=== PATIENT | female | born 1960 | race Caucasian/White ===

== ENCOUNTER → 2017-12-08 09:15 | Outpatient (CLI) | payer BC, SELFPAY ==
--- NOTE | 2017-12-08 09:21 | RAD_ITS ---
STUDY: X-RAY - THORACIC SPINE REASON FOR EXAM: Female, 56 years old. Chronic back pain. TECHNIQUE: 3 view(s) of the thoracic spine were obtained. COMPARISON: None. FINDINGS: Normal kyphosis of the thoracic spine. There is no substantial scoliosis. Normal thoracic vertebrae and endplates. Normal disc space heights. The soft tissue structures are unremarkable. RAD/Thoracic Spine 3 Views IMPRESSION: Normal for age. Electronically Signed: Jaya Perdomo MD at 17:04 EDT , Service support ,
== END ==
PROVIDERS: Family Provider Family Medicine; PCP Family Medicine; Visit Provider Family Medicine
DX: M54.9 Dorsalgia, unspecified (principal)
CPT/HCPCS: 72072

== ENCOUNTER → 2022-03-23 | Outpatient (CLI) | payer OTHER, SELFPAY ==
[2022-03-23 14:39] LABS: Absolute Lymphocyte Count 2.32 X10^3/uL (0.83-4.51); Absolute Neutrophil Count 4.6 X10^3/uL (2.0-7.7); Basophil# 0.05 X10^3/uL; Basophil% 0.6 % (0-1); Eosinophil# 0.24 X10^3/uL; Eosinophils% 3.1 % (0-5); Hematocrit 43.3 % (37-47); Hemoglobin 13.9 g/dL (12.0-15.0); Lymphocyte # 2.32 X10^3/ul (0.83-4.51); Lymphocyte % 29.7 % (19-41); Mean Corp Hgb Conc 32.1 g/dL (32-36); Mean Corpuscular Hgb 29.3 pg (27.0-32.0); Mean Corpuscular Volume 91.4 fL (81-99); Mean Platelet Vol. 11.6 fl (6.2-12.0); Monocyte# 0.58 X10^3/uL; Monocyte% 7.4 % (0-10); NRBC Flagged by Analyzer 0 % (0-5); Neutrophil % 58.9 % (47-70); Platelet Count 343 K/mm3 (150-450); RBC Distribution Width CV 13.4 % (11.6-14.6); RBC Distribution Width SD 45.7 fl (35.1-43.9); Red Blood Count 4.74 M/mm3 (4.2-5.4); White Blood Count 7.8 K/mm3 (4.4-11.0)
[2022-03-23 15:00] LABS: ALB/GLOB Ratio 1.2 RATIO (0.9-2.4); AST(SGOT) 19 U/L (15-37); Alanine Aminotransfer ALT/SGPT 28 U/L (13-56); Albumin, Serum 3.9 g/dL (3.2-5.0); Alkaline Phosphatase 121 U/L (45-117); Anion Gap 6 (5-15); BUN 12 mg/dL (7-18); BUN/Creat Ratio 16.3 RATIO (10-20); Calcium,Total 9.2 mg/dL (8.5-10.1); Chloride 109 mmol/L (98-107); Cholesterol 188 mg/dL (200); Creatinine, Serum 0.74 mg/dL (0.55-1.02); EST Glomerular Filtration Rate 86 mL/min (>60); Est Glom Filt Rate - Afr Amer 104 mL/min (>60); Globulin 3.2 g/dL (2.2-4.2); Glucose 89 mg/dL (74-106); High Density Lipoprotein 51 mg/dL; Potassium 4.5 mmol/L (3.5-5.1); Protein, Total 7.1 g/dL (6.4-8.2); Sodium Level 141 mmol/L (136-145); Thyroid Stim Hormone (TSH) 2.84 uIU/mL (0.358-3.74); Triglycerides 89 mg/dL; Very Low Density Lipoprotein 18 mg/dL (5-40); Vitamin D,25 Hydroxy 49.9 ng/mL
[2022-03-25 14:34] LABS: Free T3 2.4 pg/mL (2.18-3.98); T4 Free Direct 1.03 ng/dL (0.76-1.46)
== END | disposition home or self-care (01) ==
LOC: BFHLAB 10:56
PROVIDERS: PCP Family Medicine; Visit Provider Family Medicine
DX: Z00.00 Encounter for general adult medical examination without abnormal findings (principal); L40.50 Arthropathic psoriasis, unspecified; E03.9 Hypothyroidism, unspecified; E55.9 Vitamin D deficiency, unspecified
CPT/HCPCS: 36415; 80053; 80061; 82306; 84439; 84443; 84481; 85025

== ENCOUNTER → 2022-03-30 | Outpatient (CLI) | payer OTHER, SELFPAY ==
--- NOTE | 2022-03-30 07:20 | CT_ITS ---
EXAM: CT CHEST, LUNG CANCER SCREENING WITHOUT INTRAVENOUS CONTRAST CLINICAL INDICATION: LUNG CANCER SCREENING TECHNIQUE: Helically acquired images were obtained of the chest without intravenous contrast using low dose (LDCT) lung cancer screening protocol. This CT exam was performed using one or more of the following dose reduction techniques: automated exposure control, adjustment of the mA and/or kV according to patient size, and/or use of iterative reconstruction technique. This report was created using [employer] report generation technology. COMPARISON: None. FINDINGS: LUNGS AND PLEURAL SPACES: 5 mm left lower lobe pulmonary nodule noted on image 146 of sequence 2. Linear scarring noted within the right middle lobe and lingula. Lungs are otherwise clear. No pleural effusion or thickening. No pneumothorax. HEART: Small pericardial effusion. Heart size is normal. No significant coronary artery calcifications. MEDIASTINUM: Normal. No mediastinal or hilar adenopathy. Esophagus is unremarkable. No hiatal hernia. THYROID: Normal. No thyroid lesions. BONES/JOINTS: Normal. No suspicious lytic or blastic abnormality. VASCULATURE: Normal. Thoracic aorta is non-dilated. LYMPH NODES: Normal. No enlarged lymph nodes. CT/Low Dose CT Lung Screening IMPRESSION: 5 mm left lower lobe pulmonary nodule. ACR Lung CT Screening Reporting T Data System (Lung-RADS) score: 3 - Probably Benign. Recommend low-dose CT (LDCT) in 6 months. Electronically Signed: Beto Sahni MD at 8:39 EST ,
--- NOTE | 2022-03-30 07:45 | BI_ITS ---
MAMMOGRAPHY - BILATERAL SCREENING REASON FOR EXAM: Female, 61 years old. Routine annual screening examination. PERTINENT HISTORY: Non-contributory. TECHNIQUE: Digital bilateral breast rosa elena (3D mammographic acquisition) in the CC and MLO projections. 2-D mediolateral oblique (MLO) and craniocaudad (CC) views of both breasts were obtained. CAD: Full Field Digital Mammography with Computer Added Detection was performed. COMPARISON: 12/01/2010 FINDINGS: Breast Composition: There are scattered areas of fibroglandular density. There are no dominant masses or suspicious calcifications. No other significant abnormalities are identified. There has been no significant change since the prior study. BI/SCRN MAMM (CAD)W/ROSA ELENA BILAT IMPRESSION: Stable bilateral screening mammogram. Yearly follow-up mammogram recommended. (A) ASSESSMENT CATEGORY: BIRADS Category 1: Negative. A letter regarding these results will be sent to the patient by the facility within 30 days. Approximately 10% of breast cancers are not detected by mammography. A normal mammogram should not delay biopsy of a clinically suspicious abnormality. Electronically Signed: Thomas Rockwell, at 16:47 EST ,
== END | disposition home or self-care (01) ==
PROVIDERS: PCP Family Medicine; Referring Provider Family Medicine; Visit Provider Family Medicine
DX: Z12.31 Encounter for screening mammogram for malignant neoplasm of breast (principal); Z12.2 Encounter for screening for malignant neoplasm of respiratory organs; F17.200 Nicotine dependence, unspecified, uncomplicated
CPT/HCPCS: 71271; 77063; 77067

== ENCOUNTER → 2023-04-20 | Outpatient (CLI) | payer OTHER, SELFPAY ==
[2023-04-20 12:19] LABS: Absolute Lymphocyte Count 1.83 X10^3/uL (0.83-4.51); Basophil# 0.07 X10^3/uL; Basophil% 0.9 % (0-1); Eosinophil# 0.23 X10^3/uL; Eosinophils% 2.9 % (0-5); Hematocrit 46.1 % (37-47); Hemoglobin 14.2 g/dL (12.0-15.0); Lymphocyte # 1.83 X10^3/ul (0.83-4.51); Lymphocyte % 23.5 % (19-41); Mean Corp Hgb Conc 30.8 g/dL (32-36); Mean Corpuscular Hgb 28.3 pg (27.0-32.0); Mean Platelet Vol. 11.7 fl (6.2-12.0); Monocyte% 7.7 % (0-10); NRBC Flagged by Analyzer 0 % (0-5); Neutrophil # 5.04 X10^3/uL (2.7-7.7); Neutrophil % 64.6 % (47-70); Platelet Count 331 K/mm3 (150-450); RBC Distribution Width CV 13.1 % (11.6-14.6); RBC Distribution Width SD 44.3 fl (35.1-43.9); Red Blood Count 5.01 M/mm3 (4.2-5.4); White Blood Count 7.8 K/mm3 (4.4-11.0)
[2023-04-20 12:48] LABS: Vitamin D,25 Hydroxy 28.6 ng/mL
[2023-04-20 13:11] LABS: ALB/GLOB Ratio 1.2 RATIO (0.9-2.4); AST(SGOT) 17 U/L (15-37); Alanine Aminotransfer ALT/SGPT 23 U/L (13-56); Alkaline Phosphatase 138 U/L (45-117); Anion Gap 7 (5-15); BUN 16 mg/dL (7-18); BUN/Creat Ratio 19.2 RATIO (10-20); Calcium,Total 9.3 mg/dL (8.5-10.1); Chloride 108 mmol/L (98-107); Cholesterol 196 mg/dL (200); Creatinine, Serum 0.83 mg/dL (0.55-1.02); EST Glomerular Filtration Rate 74 mL/min (>60); Est Glom Filt Rate - Afr Amer 90 mL/min (>60); Globulin 3.4 g/dL (2.2-4.2); Glucose 90 mg/dL (74-106); High Density Lipoprotein 53 mg/dL; Potassium 4.5 mmol/L (3.5-5.1); Protein, Total 7.4 g/dL (6.4-8.2); Sodium Level 141 mmol/L (136-145); T4 Free Direct 1.05 ng/dL (0.76-1.46); Thyroid Stim Hormone (TSH) 3.92 uIU/mL (0.358-3.74); Triglycerides 117 mg/dL; Very Low Density Lipoprotein 23 mg/dL (5-40)
== END | disposition home or self-care (01) ==
LOC: BIMLAB 09:15
PROVIDERS: PCP Family Medicine; Referring Provider Family Medicine; Visit Provider Family Medicine
DX: Z00.00 Encounter for general adult medical examination without abnormal findings (principal); L40.50 Arthropathic psoriasis, unspecified; E55.9 Vitamin D deficiency, unspecified; E03.9 Hypothyroidism, unspecified
CPT/HCPCS: 36415; 80053; 80061; 82306; 84439; 84443; 85025

== ENCOUNTER → 2023-08-05 | Outpatient (CLI) | payer OTHER, SELFPAY ==
--- NOTE | 2023-08-05 14:24 | RAD_ITS ---
INDICATION: PAIN EXAMINATION/TECHNIQUE: X-RAY - XR Pelvis 1 view COMPARISON: FINDINGS: PELVIC BONES: No displaced fracture, destructive or sclerotic lesions. Note that overlapping bowel shadows may however obscure fine detail. Sacroiliac joints are unremarkable. No widening of the pubic symphysis. HIPS: The articular structures are unremarkable. No displaced fracture seen in this frontal view. SOFT TISSUES: No soft tissue swelling or gas. RAD/Pelvis 1 or 2 Views IMPRESSION: No evidence of displaced pelvic or hip fracture. Electronically Signed: Petros Jovel DO at 21:43 EDT Reading Location ID and State: [facility] / [place] Tel [phone], Service support ,
[2023-08-05 17:23] LABS: Absolute Lymphocyte Count 2.38 X10^3/uL (0.83-4.51); Absolute Neutrophil Count 4.5 X10^3/uL (2.0-7.7); Basophil# 0.06 X10^3/uL; Basophil% 0.8 % (0-1); Eosinophil# 0.31 X10^3/uL; Hematocrit 43.6 % (37-47); Hemoglobin 13.9 g/dL (12.0-15.0); Lymphocyte # 2.38 X10^3/ul (0.83-4.51); Lymphocyte % 30.4 % (19-41); Mean Corp Hgb Conc 31.9 g/dL (32-36); Mean Corpuscular Hgb 28.6 pg (27.0-32.0); Mean Corpuscular Volume 89.7 fL (81-99); Monocyte# 0.56 X10^3/uL; Monocyte% 7.2 % (0-10); NRBC Flagged by Analyzer 0 % (0-5); Neutrophil # 4.48 X10^3/uL (2.7-7.7); Neutrophil % 57.2 % (47-70); Platelet Count 307 K/mm3 (150-450); RBC Distribution Width CV 13.2 % (11.6-14.6); RBC Distribution Width SD 43.4 fl (35.1-43.9); Red Blood Count 4.86 M/mm3 (4.2-5.4); White Blood Count 7.8 K/mm3 (4.4-11.0)
[2023-08-05 17:30] LABS: Erythrocyte Sedimentation Rate 14 mm/hr (0-30)
[2023-08-05 18:01] LABS: ALB/GLOB Ratio 1.1 RATIO (0.9-2.4); AST(SGOT) 17 U/L (15-37); Alanine Aminotransfer ALT/SGPT 27 U/L (13-56); Albumin, Serum 3.9 g/dL (3.2-5.0); Alkaline Phosphatase 149 U/L (45-117); Anion Gap 5 (5-15); BUN 21 mg/dL (7-18); BUN/Creat Ratio 20.6 RATIO (10-20); CRP 3.53 mg/L (0.0-3.0); Calcium,Total 9.1 mg/dL (8.5-10.1); Chloride 108 mmol/L (98-107); Creatinine, Serum 1.02 mg/dL (0.55-1.02); EST Glomerular Filtration Rate 59 mL/min (>60); Est Glom Filt Rate - Afr Amer 71 mL/min (>60); Globulin 3.4 g/dL (2.2-4.2); Glucose 89 mg/dL (74-106); Potassium 3.6 mmol/L (3.5-5.1); Protein, Total 7.3 g/dL (6.4-8.2); Rheumatoid Factor < 10.0 IU/mL (<15); Sodium Level 141 mmol/L (136-145)
[2023-08-05 18:35] LABS: Hepatitis B Surface Antibody Non-Reactive; Hepatitis B Surface Antigen Non-Reactive (Nonreactive); Hepatitis C Antibody Non-Reactive (Nonreactive)
[2023-08-08 12:08] LABS: ANTINUCLEAR ANTIBODIES DIRECT Negative (Negative)
[2023-08-08 15:07] LABS: CCP IgG Antibodies 2 units (0-19)
== END | disposition home or self-care (01) ==
LOC: MTLAB 14:23
PROVIDERS: PCP Family Medicine; Referring Provider Internal Medicine Rheumatology; Visit Provider Internal Medicine Rheumatology
DX: L40.59 Other psoriatic arthropathy (principal); M79.7 Fibromyalgia
CPT/HCPCS: 36415; 72170; 80053; 85025; 85652; 86038; 86140; 86200; 86431; 86706; 86803; 87340

== ENCOUNTER → 2023-10-19 | Outpatient (CLI) | payer OTHER, SELFPAY ==
[2023-10-19 10:38] LABS: Absolute Lymphocyte Count 1.67 X10^3/uL (0.83-4.51); Absolute Neutrophil Count 4.6 X10^3/uL (2.0-7.7); Basophil# 0.06 X10^3/uL; Basophil% 0.8 % (0-1); Eosinophil# 0.19 X10^3/uL; Eosinophils% 2.7 % (0-5); Hematocrit 43.4 % (37-47); Hemoglobin 13.9 g/dL (12.0-15.0); Lymphocyte # 1.67 X10^3/ul (0.83-4.51); Lymphocyte % 23.5 % (19-41); Mean Corpuscular Hgb 28.5 pg (27.0-32.0); Mean Corpuscular Volume 88.9 fL (81-99); Mean Platelet Vol. 10.8 fl (6.2-12.0); Monocyte# 0.51 X10^3/uL; Monocyte% 7.2 % (0-10); NRBC Flagged by Analyzer 0 % (0-5); Neutrophil # 4.64 X10^3/uL (2.7-7.7); Neutrophil % 65.4 % (47-70); Platelet Count 369 K/mm3 (150-450); RBC Distribution Width CV 13.8 % (11.6-14.6); RBC Distribution Width SD 44.7 fl (35.1-43.9); Red Blood Count 4.88 M/mm3 (4.2-5.4); White Blood Count 7.1 K/mm3 (4.4-11.0)
[2023-10-19 11:41] LABS: ALB/GLOB Ratio 1.2 RATIO (0.9-2.4); AST(SGOT) 18 U/L (15-37); Alanine Aminotransfer ALT/SGPT 28 U/L (13-56); Albumin, Serum 3.9 g/dL (3.2-5.0); Alkaline Phosphatase 166 U/L (45-117); Anion Gap 8 (5-15); BUN 16 mg/dL (7-18); BUN/Creat Ratio 19.1 RATIO (10-20); Calcium,Total 9.7 mg/dL (8.5-10.1); Chloride 108 mmol/L (98-107); Creatinine, Serum 0.84 mg/dL (0.55-1.02); EST Glomerular Filtration Rate 73 mL/min (>60); Est Glom Filt Rate - Afr Amer 89 mL/min (>60); Globulin 3.3 g/dL (2.2-4.2); Glucose 110 mg/dL (74-106); Potassium 3.7 mmol/L (3.5-5.1); Protein, Total 7.2 g/dL (6.4-8.2); Sodium Level 137 mmol/L (136-145)
== END | disposition home or self-care (01) ==
LOC: MTLAB 09:07
PROVIDERS: PCP Family Medicine; Referring Provider Internal Medicine Rheumatology; Visit Provider Internal Medicine Rheumatology
DX: L40.59 Other psoriatic arthropathy (principal); M79.7 Fibromyalgia; Z79.899 Other long term (current) drug therapy
CPT/HCPCS: 36415; 80053; 85025

== ENCOUNTER → 2023-12-21 | Outpatient (CLI) | payer OTHER, SELFPAY ==
[2023-12-21 12:22] LABS: ALB/GLOB Ratio 1.1 RATIO (0.9-2.4); AST(SGOT) 28 U/L (15-37); Absolute Neutrophil Count 3.5 X10^3/uL (2.0-7.7); Alanine Aminotransfer ALT/SGPT 38 U/L (13-56); Alkaline Phosphatase 160 U/L (45-117); Anion Gap 8 (5-15); BUN 14 mg/dL (7-18); BUN/Creat Ratio 16.9 RATIO (10-20); Basophil# 0.03 X10^3/uL; Basophil% 0.5 % (0-1); Calcium,Total 9.8 mg/dL (8.5-10.1); Chloride 103 mmol/L (98-107); Creatinine, Serum 0.83 mg/dL (0.55-1.02); EST Glomerular Filtration Rate 75 mL/min (>60); Eosinophil# 0.17 X10^3/uL; Eosinophils% 2.8 % (0-5); Est Glom Filt Rate - Afr Amer 90 mL/min (>60); Globulin 3.6 g/dL (2.2-4.2); Glucose 89 mg/dL (74-106); Hematocrit 45.7 % (37-47); Hemoglobin 14.2 g/dL (12.0-15.0); Lymphocyte % 29.3 % (19-41); Mean Corp Hgb Conc 31.1 g/dL (32-36); Mean Corpuscular Volume 93.5 fL (81-99); Mean Platelet Vol. 11.4 fl (6.2-12.0); Monocyte# 0.58 X10^3/uL; Monocyte% 9.4 % (0-10); NRBC Flagged by Analyzer 0 % (0-5); Neutrophil # 3.52 X10^3/uL (2.7-7.7); Neutrophil % 57.3 % (47-70); Platelet Count 317 K/mm3 (150-450); Potassium 4.4 mmol/L (3.5-5.1); Protein, Total 7.6 g/dL (6.4-8.2); RBC Distribution Width CV 14.3 % (11.6-14.6); RBC Distribution Width SD 48.2 fl (35.1-43.9); Red Blood Count 4.89 M/mm3 (4.2-5.4); Sodium Level 137 mmol/L (136-145); White Blood Count 6.1 K/mm3 (4.4-11.0)
== END | disposition home or self-care (01) ==
LOC: MTLAB 09:28
PROVIDERS: PCP Family Medicine; Referring Provider Internal Medicine Rheumatology; Visit Provider Internal Medicine Rheumatology
DX: L40.59 Other psoriatic arthropathy (principal); Z79.899 Other long term (current) drug therapy; M79.7 Fibromyalgia
CPT/HCPCS: 36415; 80053; 85025

== ENCOUNTER → 2024-02-14 | Outpatient (CLI) | payer OTHER, SELFPAY ==
[2024-02-14 07:39] LABS: Absolute Lymphocyte Count 1.76 X10^3/uL (0.83-4.51); Absolute Neutrophil Count 3.6 X10^3/uL (2.0-7.7); Basophil# 0.08 X10^3/uL; Basophil% 1.2 % (0-1); Eosinophils% 4.7 % (0-5); Hematocrit 45.1 % (37-47); Hemoglobin 14.1 g/dL (12.0-15.0); Lymphocyte # 1.76 X10^3/ul (0.83-4.51); Lymphocyte % 27.4 % (19-41); Mean Corp Hgb Conc 31.3 g/dL (32-36); Mean Corpuscular Hgb 29.4 pg (27.0-32.0); Mean Corpuscular Volume 94.2 fL (81-99); Mean Platelet Vol. 11.1 fl (6.2-12.0); Monocyte# 0.66 X10^3/uL; Monocyte% 10.3 % (0-10); NRBC Flagged by Analyzer 0 % (0-5); Neutrophil % 55.9 % (47-70); Platelet Count 312 K/mm3 (150-450); RBC Distribution Width CV 13.7 % (11.6-14.6); RBC Distribution Width SD 46.8 fl (35.1-43.9); Red Blood Count 4.79 M/mm3 (4.2-5.4); White Blood Count 6.4 K/mm3 (4.4-11.0)
[2024-02-14 08:35] LABS: ALB/GLOB Ratio 1.1 RATIO (0.9-2.4); AST(SGOT) 23 U/L (15-37); Alanine Aminotransfer ALT/SGPT 36 U/L (13-56); Albumin, Serum 3.8 g/dL (3.2-5.0); Alkaline Phosphatase 165 U/L (45-117); Anion Gap 7 (5-15); BUN 12 mg/dL (7-18); BUN/Creat Ratio 14.5 RATIO (10-20); Calcium,Total 9.8 mg/dL (8.5-10.1); Chloride 106 mmol/L (98-107); Creatinine, Serum 0.82 mg/dL (0.55-1.02); EST Glomerular Filtration Rate 75 mL/min (>60); Est Glom Filt Rate - Afr Amer 91 mL/min (>60); Globulin 3.4 g/dL (2.2-4.2); Glucose 94 mg/dL (74-106); Potassium 4.7 mmol/L (3.5-5.1); Protein, Total 7.2 g/dL (6.4-8.2); Sodium Level 141 mmol/L (136-145)
== END | disposition home or self-care (01) ==
PROVIDERS: PCP Family Medicine; Referring Provider Internal Medicine Rheumatology; Visit Provider Internal Medicine Rheumatology
DX: L40.59 Other psoriatic arthropathy (principal); L40.8 Other psoriasis; Z79.899 Other long term (current) drug therapy
CPT/HCPCS: 36415; 80053; 85025

== ENCOUNTER → 2024-04-03 | Outpatient (CLI) | payer OTHER, SELFPAY ==
[2024-04-03 12:31] LABS: Absolute Lymphocyte Count 1.75 X10^3/uL (0.83-4.51); Absolute Neutrophil Count 4.4 X10^3/uL (2.0-7.7); Basophil# 0.06 X10^3/uL; Basophil% 0.9 % (0-1); Eosinophil# 0.24 X10^3/uL; Eosinophils% 3.4 % (0-5); Hematocrit 44.6 % (37-47); Hemoglobin 13.8 g/dL (12.0-15.0); Lymphocyte # 1.75 X10^3/ul (0.83-4.51); Lymphocyte % 24.9 % (19-41); Mean Corp Hgb Conc 30.9 g/dL (32-36); Mean Corpuscular Hgb 29.2 pg (27.0-32.0); Mean Corpuscular Volume 94.3 fL (81-99); Mean Platelet Vol. 11.8 fl (6.2-12.0); Monocyte# 0.61 X10^3/uL; Monocyte% 8.7 % (0-10); NRBC Flagged by Analyzer 0 % (0-5); Neutrophil # 4.36 X10^3/uL (2.7-7.7); Neutrophil % 61.8 % (47-70); Platelet Count 343 K/mm3 (150-450); RBC Distribution Width CV 13.3 % (11.6-14.6); RBC Distribution Width SD 45.8 fl (35.1-43.9); Red Blood Count 4.73 M/mm3 (4.2-5.4)
[2024-04-03 12:42] LABS: ALB/GLOB Ratio 1.2 RATIO (0.9-2.4); AST(SGOT) 23 U/L (15-37); Alanine Aminotransfer ALT/SGPT 36 U/L (13-56); Albumin, Serum 3.9 g/dL (3.2-5.0); Alkaline Phosphatase 154 U/L (45-117); Anion Gap 7 (5-15); BUN 17 mg/dL (7-18); BUN/Creat Ratio 21.7 RATIO (10-20); Calcium,Total 9.7 mg/dL (8.5-10.1); Chloride 105 mmol/L (98-107); Creatinine, Serum 0.78 mg/dL (0.55-1.02); EST Glomerular Filtration Rate 79 mL/min (>60); Est Glom Filt Rate - Afr Amer 96 mL/min (>60); Globulin 3.2 g/dL (2.2-4.2); Glucose 79 mg/dL (74-106); Protein, Total 7.1 g/dL (6.4-8.2); Sodium Level 139 mmol/L (136-145)
== END | disposition home or self-care (01) ==
LOC: MTLAB 09:15
PROVIDERS: PCP Family Medicine; Referring Provider Internal Medicine Rheumatology; Visit Provider Internal Medicine Rheumatology
DX: L40.59 Other psoriatic arthropathy (principal); L40.8 Other psoriasis; Z79.899 Other long term (current) drug therapy
CPT/HCPCS: 36415; 80053; 85025

== ENCOUNTER 2024-04-10 08:00 | Outpatient (RCR) | payer OTHER, SELFPAY ==
--- NOTE | 2024-03-06 11:00 | HP.PTEVAL_ITS ---
Patient's Visit Information Visit Information Visit Information: BOO BREEN is a 63 year old F referred to Physical Therapy by Dr. Maria A Carranza MD with a diagnosis of PSORIATIC ARTHROPATHY , FIBROMYALGIA. Date of Evaluation: 03/06/24 Physical Therapist: Andrea Garcia PT, Cert MDT, OCS Visit Plan Frequency: 2x /Week Duration: 4 Weeks Plan: PT INTERVENTIONS GRADED STRENGTHENING QUADS/HAMS/HIP ,FUNCTIONAL STRENGTHENING ,DLS ,POSTURAL EX'S AND UE STRENGTHENING Subjective Subjective: This 63 y/o female presents to physical therapy with generalized pain. Patient has fibromyalgia and psoriatic arthritis for many years. Patient seen DR flynn PT. Patient has medication prednisone as needed ,methotrexate 1x /week ,tramadol. Patient pain located bilateral lateral hips ,shoulders and left knee and constant back pain. Pain generalized described as ache and occasional stabbing pain. Aggravating factors generalized activities job demands and housework tasks. Stairs make symptoms worse. Alleviating rest and heat. Symptoms worse in the morning. Patient pain affects sleeping. Patient denies paresthesia/tingling. No prior PT. Patient condition affects QOL and function. Patient goals to make ADLS pain less. SOCIAL: VOCATION: [employer] Pain Bilateral Back: Pain Intensity (Out of 10): 5 Bilateral Hip: Pain Intensity (Out of 10): 7 Right Shoulder: Pain Intensity (Out of 10): 6 Left Knee: Pain Intensity (Out of 10): 3 Objective Objective: POSTURE: mild forewarn posture GAIT: reciprocal pattern mild antalgic gait NEURO: denies paresthesia/tingling PALPATION: global tenderness ,IT band AROM: BUE FLEXABILITY: hamstrings min tight LUMBAR ROM: flexion min/mod loss ,extension mod loss ,side glides min/mod loss MMT: ( peak force) hip flexion right 12,3,left 14.2 ,quads right 14.7 ,left 15.7 ,hamstrings left 12.2,right 10.2 ,shoulders 5.9 ,right ,left 4.9 Hip abductors right 10.1 ,left 9.8 Special Tests L/S Slump test left side: Negative L/S Slump test right side: Negative L/S Left Straight Leg Raise: Negative L/S Right Straight Leg Raise: Negative R Hip Scour: Negative L Hip Scour: Negative Balance/Special Test Scores Lower Extremity Functional Score: 30 Goals Goal 1:: Patient to be I with HEP Goal Time Frame: 4-6 Weeks Goal 2:: Patient to demonstrate 40% improvement with less pain and improved function Goal Time Frame: 4-6 Weeks Goal 3:: Patient to improve LFES score by 5 points to improve function and ADLS /QOL. Goal Time Frame: 4-6 Weeks Goal 4:: Patient to improve peak force quads/hams/hips and shoulders by 5-10# to improve function and less pain Goal Time Frame: 4-6 Weeks Rehabilitation Potential Physical Therapy Diagnosis: This patient has chronic pain with OA psoriatic with muscle weakness impairs ADLS and housework tasks /job demands thus benefit from skilled PT Rehabilitation Potential: Good Anticipated Interventions Patient/Client Instruction: Educate patient on: Condition and Plan of Care For the Purpose of:: To decrease pain, To increase ROM, To increase oxygenation perfusion, To increase tolerance to activity/condition/position, To improve ability of physical actions for home/community/work/leisure, To improve gait and locomotor functions, To increase flexibility/ROM and To improve endurance Therapeutic Exercise to Include: Strength training, Endurance training, Balance training, Flexibilty training and Dynamic Lumbar Stabilization Comment: BUE/BLE For the Purpose of:: To decrease pain, To increase ROM, To improve muscle performance and motor function, To increase tolerance to activity/condition/position, To improve ability of physical actions for home/community/work/leisure, To improve gait and locomotor functions, To improve health of tissue, To improve endurance and To reduce risk of recurrence Text: Thank you for the opportunity to evaluate your patient. For Medicare and Medicare HMO plans, please review the plan of care and approve it. It will need to be FAXED BACK to us at [phone] for Medicare purposes. For Medicare only, by signing this I certify the plan of care. Please let me know if there are questions or concerns regarding this plan of care. Physician Signature: Date:
--- NOTE | 2024-04-10 08:28 | HP.PTDCSUM ---
Discharge Summary D/C summary: It has been my pleasure to treat BOO BREEN referred by Dr. Maria A Carranza MD, with the diagnosis of PSORIATIC ARTHROPATHY , FIBROMYALGIA for a total of 9 visit(s). Discharge Date: Please see the following information for a summary of their discharge status. Subjective Subjective: Plan to see DR MORALES not really helping Pain Bilateral Back: Pain Intensity (Out of 10): 5 Bilateral Hip: Pain Intensity (Out of 10): 5 Right Shoulder: Pain Intensity (Out of 10): 5 Left Knee: Pain Intensity (Out of 10): 5 Overall Improvement % Improvement: 20 Objective Objective/Function: POSTURE: mild forewarn posture GAIT: reciprocal pattern mild antalgic gait NEURO: denies paresthesia/tingling PALPATION: global tenderness ,IT band AROM: BUE FLEXABILITY: hamstrings min tight LUMBAR ROM: flexion min/mod loss ,extension mod loss ,side glides min/mod loss MMT: ( peak force) hip flexion right 15,3,left 15.2 ,quads right 29.7 ,left 28..7 ,hamstrings left 12.8,right 23.2 ,shoulders 8.9 ,right ,left 9.9 Hip abductors right 10.1 ,left 9.8 Goals Goal 1:: Patient to be I with HEP Goal Progress: Goal Met Goal 2:: Patient to demonstrate 40% improvement with less pain and improved function Goal Progress: Progressing Goal 3:: Patient to improve LFES score by 5 points to improve function and ADLS /QOL. Goal Progress: Progressing Goal 4:: Patient to improve peak force quads/hams/hips and shoulders by 5-10# to improve function and less pain Goal Progress: Progressing Plan Plan: RTD -D/C D/C Information d/c sentence: If there are questions or concerns regarding this patient's physical therapy, please feel free to call me at [phone]. Thank you for the referral of this patient. Sincerely, Andrea Garcia PT, Cert MDT, OCS Balance/Gait/Functional tests Balance/Special Test Scores Lower Extremity Functional Score: 30 Improvement % Improvement: 20
== END 2024-04-10 19:00 | disposition home or self-care (01) ==
LOC: PT 08:00
PROVIDERS: PCP Family Medicine; Referring Provider Internal Medicine Rheumatology; Visit Provider Internal Medicine Rheumatology
DX: L40.59 Other psoriatic arthropathy (principal); M79.7 Fibromyalgia
CPT/HCPCS: 97110; 97162; 97530

== ENCOUNTER → 2024-06-06 | Outpatient (CLI) | payer OTHER, SELFPAY ==
[2024-06-06 12:24] LABS: Absolute Neutrophil Count 3.9 X10^3/uL (2.0-7.7); Basophil# 0.05 X10^3/uL; Basophil% 0.7 % (0-1); Eosinophil# 0.19 X10^3/uL; Eosinophils% 2.8 % (0-5); Hematocrit 44.2 % (37-47); Hemoglobin 14.3 g/dL (12.0-15.0); Lymphocyte % 28.4 % (19-41); Mean Corp Hgb Conc 32.4 g/dL (32-36); Mean Corpuscular Hgb 29.9 pg (27.0-32.0); Mean Corpuscular Volume 92.3 fL (81-99); Mean Platelet Vol. 11.1 fl (6.2-12.0); Monocyte# 0.59 X10^3/uL; Monocyte% 8.8 % (0-10); NRBC Flagged by Analyzer 0 % (0-5); Neutrophil # 3.94 X10^3/uL (2.7-7.7); Platelet Count 365 K/mm3 (150-450); RBC Distribution Width CV 13.8 % (11.6-14.6); RBC Distribution Width SD 46.3 fl (35.1-43.9); Red Blood Count 4.79 M/mm3 (4.2-5.4); White Blood Count 6.7 K/mm3 (4.4-11.0)
[2024-06-06 12:56] LABS: ALB/GLOB Ratio 1.1 RATIO (0.9-2.4); AST(SGOT) 16 U/L (15-37); Alanine Aminotransfer ALT/SGPT 26 U/L (13-56); Albumin, Serum 3.7 g/dL (3.2-5.0); Alkaline Phosphatase 152 U/L (45-117); Anion Gap 8 (5-15); BUN 17 mg/dL (7-18); BUN/Creat Ratio 20.4 RATIO (10-20); Calcium,Total 9.8 mg/dL (8.5-10.1); Chloride 106 mmol/L (98-107); Creatinine, Serum 0.83 mg/dL (0.55-1.02); EST Glomerular Filtration Rate 74 mL/min (>60); Est Glom Filt Rate - Afr Amer 89 mL/min (>60); Globulin 3.4 g/dL (2.2-4.2); Glucose 89 mg/dL (74-106); Potassium 4.7 mmol/L (3.5-5.1); Protein, Total 7.1 g/dL (6.4-8.2); Sodium Level 139 mmol/L (136-145)
[2024-06-09 04:07] LABS: QNTFERON TB Mitogen Value > 10.00 IU/mL (.); QNTFERON TB Nil Value 0.04 IU/mL (.); QNTFERON TB1+ Ag Value 0.05 IU/mL (.); QNTFERON TB2+ Ag Value 0.05 IU/mL (.); QNTIFERON TB Positive Criteria Negative (Negative)
== END | disposition home or self-care (01) ==
LOC: MTLAB 09:02
PROVIDERS: PCP Family Medicine; Referring Provider Internal Medicine Rheumatology; Visit Provider Internal Medicine Rheumatology
DX: L40.59 Other psoriatic arthropathy (principal); M79.7 Fibromyalgia; Z79.899 Other long term (current) drug therapy
CPT/HCPCS: 36415; 80053; 85025; 86480

== ENCOUNTER → 2024-07-18 | Outpatient (CLI) | payer OTHER, SELFPAY ==
--- NOTE | 2024-07-18 07:14 | CT_ITS ---
PROCEDURE: LOW DOSE CT LUNG SCREENING REASON FOR EXAM: LUNG CANCER SCREENING Follow-up for left lower lobe lung nodule. Current smoker. 1-1/2 packs of cigarettes per day for 40 years. TECHNIQUE: Low Dose CT Lung Screening without contrast COMPARISON: Comparison is made with prior study dated March 30 2022. FINDINGS: PULMONARY NODULES: (Only nodules >6mm are reported) Nodules described below are on series 1 unless otherwise specified. Pulmonary Nodules: The previously seen nodular density in the peripheral lateral aspect of the left lower lobe has increased in size. It presently measures 10.3 mm. Further follow-up with biopsy and/or PET scan recommended. Stable linear scarring in the lingular segment of the left upper lobe. Hardware:None Lymph Nodes:No mediastinal hilar or axillary lymphadenopathy. Heart and Vasculature:Normal heart size. No pericardial effusion.Thoracic aorta and pulmonary arteries have normal contours; noncontrast technique limits evaluation. Coronary Artery Calcifications: Absent Lungs and Airways: Mild emphysematous changes are present. Pleura:No pleural effusion. No pneumothorax. Upper Abdomen:Visualized portions of the upper abdominal viscera are unremarkable. Bones:Degenerative changes of the thoracic spine. CT/Low Dose CT Lung Screening IMPRESSION: 1. BASED ON THE ACR LUNG RADS FOR THE MOST SUSPICIOUS NODULE (IF ANY) DESCRIBE D IN THIS REPORT, THE OVERALL LUNG RADS SCORE IS 4B. 4B-VERY SUSPICIOUS. RECOMMEND DIAGNOSTIC CHEST CT; PET/CT MAY BE CONSIDERED IF >=8MM SOLID NODULE OR SOLID COMPONENT; TISSUE SAMPLING; AND/OR REFERRAL FOR CLINICAL EVALUATION. IF AIRWAY NODULE THEN REFER FOR CLINICAL EVALUATION. 2. SMOKING CESSATION COUNSELING IS RECOMMENDED IF THE PATIENT IS STILL SMOKING . 3. OTHER SIGNIFICANT FINDINGSNone. One or more dose reduction techniques were used (e.g., Automated exposure contr ol, adjustment of the mA and/or kV according to patient size, use of iterative reconstruction technique). The following information is provided for reference:Lung-RADS 2021 Assessment C ategories. Additional information involving Lung-RADS is available at www.acr.org. 0-INCOMPLETE 1-NEGATIVE:No nodules or definitely benign nodules. Complete, central, popcorn , or centric ring calcifications OR fat containing 2-BENIGN APPEARANCE (based on imaging features or indolent behavior). Juxtaple ural nodule: < 10mm AND solid; smooth margins; oval, entiform, or triangular shape Solid nodule: <6mm at baseline or new< 4mm Part solid Nodule: < 6mm total mean diameter at baseline Nonsolid nodule:(GGN) < 30mm OR >=30mm stable or slowly growing Airway nodule, subsegmental at baseline, new, or stable Category 3 nodule stabl e or decreased in size at 6-month follow-up CT or Category 3 or 4A nodules that resolve on follow-up OR category 4B findings prov en to be benign following diagnotic work up. 3 - Probably Benign (Based on imaging features or behavior) Solid Nodule: >= 6 to <8mm at baseline OR new 4 to <6mm Part-solid nodule: >= 6mm toal mean diam. with solid component <6mm at baseline OR new < 6mm total mean diam. Non-solid nodule: GGN >= 30mm at baseline or new Atypical pulmonary cyst: Growing cystic component (mean diam.) of thick-walled cyst Category 4A nodule stable or decreased in size at 3-month follow-up CT (excl.ai rway). 4A - Suspicious Solid nodule: >=8 to < 15mm at baseline OR growing < 8mm OR new 6 to < 8mm Part solid nodule: >= 6mm total mean diam. w/ solid component >=6mm to < 8mm at baseline OR new or growing < 4mm solid component Airway nodule, segmental or more proximal at baseline or new Atypical pulmonary cyst: Thick-walled OR multilocular at baseline OR becomes mu ltilocular 4B - Very Suspicious Airway nodule, segmental or more proximal, and stable or growing Solid nodule: >= 15mm at baseline OR new or growing >= 8mm Part solid nodule: Solid component >= 8mm OR new or growing >= 4mm solid compon ent Atypical pulmonary cyst: Thick-walled with growing wall thickness/nodularity OR Growing multilocular (mean diam.) OR Multilocular with increased loculation or new/increased opacity Slow-growing solid or part solid nodule w/ growth over multiple screening exams 4X - Very Suspicious Category 3 or 4 nodules with additional features that increase the suspicion fo r lung cancer. S - Clinically Significant or potentially significant findings (non-lung cancer ) Reading Location: [place] [id number]
--- NOTE | 2024-07-18 07:40 | BI_ITS ---
PROCEDURE: SCRN MAMM (CAD)W/ROSA ELENA BILAT REASON FOR EXAM: F, Age 63 y/o , SCREENING. Family history of breast cancer in her daughter and a maternal great aunt. TECHNIQUE: Bilateral screening digital breast tomosynthesis with 2D and 3D images. Computer aided detection. COMPARISON: 03/30/2022 FINDINGS: There are scattered areas of fibroglandular density. There is an asymmetry in the medial left breast at posterior depth visualized on the CC view, this may be in the skin as it is in the first few slices on the tomosynthesis images. No suspicious masses, areas of developing architectural distortion, or suspicious calcifications in the right breast. BI/SCRN MAMM (CAD)W/ROSA ELENA BILAT IMPRESSION: Asymmetry in the medial left breast at posterior depth visualized on the CC vie w requires further evaluation. Recommend diagnostic mammogram of the left breast, and ultrasound if indicated on the day of diagnostic. BI-RADS 0: INCOMPLETE - NEED ADDITIONAL IMAGING EVALUATION. Follow-up code: Additional Views obtained/call backs The patient will be notified of the results by letter. Reading Location: [id number]
== END | disposition home or self-care (01) ==
PROVIDERS: PCP Family Medicine; Referring Provider Family Medicine; Visit Provider Family Medicine
DX: Z12.31 Encounter for screening mammogram for malignant neoplasm of breast (principal)
CPT/HCPCS: 71271; 77063; 77067

== ENCOUNTER → 2024-07-25 | Outpatient (CLI) | payer OTHER, SELFPAY ==
--- NOTE | 2024-07-25 08:55 | BI_ITS ---
PROCEDURE: DIAG MAMM W/CAD, UNILAT REASON FOR EXAM: F, Age 63 y/o, recall from screening mammogram for a left breast asymmetry visualized on the examination of 07/18/2024. Family history of breast cancer in maternal great aunt and her daughter. TECHNIQUE: Unilateral left digital breast tomosynthesis with 2D and 3D images. Computer aided detection. COMPARISON: 07/18/2024, 03/30/2022 FINDINGS: There are scattered areas of fibroglandular density. Follow-up examination performed for the asymmetry seen in the medial left breast at posterior depth on examination of 07/18/2024. On the present examination, the area previously in question in the central inner left breast is marked with a [employer] skin marker and this area is consistent with a skin lesion. Otherwise, there are no suspicious findings in the left breast. BI/DIAG MAMM W/CAD, UNILAT IMPRESSION: The asymmetry in the left breast correlates to a benign skin lesion. There is no evidence of malignancy in the left breast. BI-RADS 2: BENIGN. RECOMMEND ANNUAL MAMMOGRAPHIC SCREENING. Follow-up code: Routine Follow-up The patient will be notified of the results by letter. Reading Location: [id number]
== END | disposition home or self-care (01) ==
PROVIDERS: PCP Family Medicine; Referring Provider Family Medicine; Visit Provider Family Medicine
DX: N64.89 Other specified disorders of breast (principal); Z80.3 Family history of malignant neoplasm of breast
CPT/HCPCS: 77061; 77065; G0279

== ENCOUNTER → 2024-08-07 | Outpatient (CLI) | payer OTHER, SELFPAY ==
--- NOTE | 2024-08-07 07:30 | PET_ITS ---
EXAM: PET-CT skull base to mid thigh. CLINICAL HISTORY: R91.1 solitary pulmonary nodule; R91.8 other nonspecific abnormal finding of lung field COMPARISON: None TECHNIQUE: Agent: F 18 fluorodeoxyglucose. Dose: 13.496 mCi Prior to the procedure, the blood glucose level was 69 mg/dL. CT images for attenuation correction and anatomic localization followed by PET images from the skull base through the mid thigh attained. Scans are available. Baseline study. FINDINGS: Neck: There is normal uptake within the soft tissues of the neck and glandular structures without focal areas of abnormal increased metabolism. Chest: Left peripheral lower lobe, 1 cm lung base nodule is identified. Take for this nodule 3. 4 SUV. Although worrisome for malignancy, anti-inflammatory lesion. Is this level of SUV. Abdomen/pelvis: There is normal distribution of the radiotracer within the gastrointestinal tract and genitourinary system, without focal areas of abnormal metabolism. No evidence of adenopathy. Musculoskeletal: Normal uptake within the osseous soft tissues throughout without focal areas of abnormal, embolism no evidence of adenopathy increased PET/PET/CT Tumor Base -Thigh Init IMPRESSION: 1. Single focus of abnormal hypermetabolism, seen in a 1 cm nodule in the left lower lobe peripherally. Reading Location: [id number]
== END | disposition home or self-care (01) ==
PROVIDERS: PCP Family Medicine; Referring Provider Nurse Practitioner Acute Care; Visit Provider Nurse Practitioner Acute Care
DX: R91.8 Other nonspecific abnormal finding of lung field (principal); R91.1 Solitary pulmonary nodule
CPT/HCPCS: 78815; A9552

== ENCOUNTER → 2024-08-30 | Outpatient (CLI) | payer OTHER, SELFPAY ==
[2024-08-30 11:32] VITALS: PULSE 109; PULSE 113; PULSE 120; PULSE 122; PULSE 90; PULSE 94; O2SAT 94; O2SAT 95; O2SAT 96
--- NOTE | 2024-08-31 12:20 | WT_ITS ---
PSN 6 Minute Walk Test 6 Minute Walk Test 6 Minute Walk Test: 6 Minute Walk Test PSN:6-Minute Walk Test Start: 08/30/24 11:32 Freq: Status: Active Protocol: [id number] Document 08/30/24 11:32 HODAGINNA (Rec: 08/30/24 11:34 RANDALLCLEMENCIAGINNA [id number]) 6 Minute Walk Test Date Performed 08/30/24 Time Performed 11:20 Height 5 ft 1 in Weight: 178 lb Weight in Pounds 178.[address]: Angeline Lew ASSISTANT COMMUNITY DIRECTOR Assistive device None used: Pre-test Oxygen Delivery Room Air Method Pulse Ox (%) 95 Pulse Rate (60-100 94 beats/min) Dyspnea Jd Scale ( 0 0-10) Exertion Jd Scale 6 (6-20) 1st minute Oxygen Delivery Room Air Method Pulse Ox (%) 94 Pulse Rate (60-100 109 H beats/min) 2nd minute Oxygen Delivery Room Air Method Pulse Ox (%) 94 Pulse Rate (60-100 109 H beats/min) 3rd minute Oxygen Delivery Room Air Method Pulse Ox (%) 94 Pulse Rate (60-100 113 H beats/min) 4th minute Oxygen Delivery Room Air Method Pulse Ox (%) 95 Pulse Rate (60-100 122 H beats/min) 5th minute Oxygen Delivery Room Air Method Pulse Ox (%) 96 Pulse Rate (60-100 122 H beats/min) 6th minute Oxygen Delivery Room Air Method Pulse Ox (%) 95 Pulse Rate (60-100 120 H beats/min) Dyspnea Jd Scale ( 1 0-10) Exertion Jd Scale 12 (6-20) Post-test Oxygen Delivery Room Air Method Pulse Ox (%) 96 Pulse Rate (60-100 90 beats/min) Full Laps Walked 15 Partial Lap, Number 52 of Tiles Walked Total Distance 937 Walked (ft) Interpretation Interpretation: The patient ambulated 937 feet over the course of 6 minutes beginning on room air without assistive devices. Pretesting oxygen saturation was noted to be 95% on room air. With ambulation, the [place] oxygen saturation was 94%. There was no significant exertional oxygen desaturation. Recommendations Recommendations: There is no indication for the use of supplemental oxygen at this time.
== END | disposition home or self-care (01) ==
LOC: PSN 11:08
PROVIDERS: PCP Family Medicine; Referring Provider Nurse Practitioner Acute Care; Visit Provider Nurse Practitioner Acute Care
DX: R06.02 Shortness of breath (principal)
CPT/HCPCS: 94618

== ENCOUNTER → 2024-08-31 | Outpatient (CLI) | payer OTHER, SELFPAY | END | disposition home or self-care (01) | LOC: PSN 08:05 | PROVIDERS: PCP Family Medicine; Referring Provider Nurse Practitioner Acute Care; Visit Provider Nurse Practitioner Acute Care | DX: R06.02 Shortness of breath (principal) | CPT/HCPCS: 94060; 94726; 94729 ==

== ENCOUNTER → 2024-11-27 | Outpatient (CLI) | payer OTHER, SELFPAY ==
[2024-11-27 10:12] LABS: Hematocrit 42.5 % (37-47); Hemoglobin 13.4 g/dL (12.0-15.0); Immature Granulocytes Count 0.030 X10^3/uL (0.0-0.0); Mean Corp Hgb Conc 31.5 g/dL (32-36); Mean Corpuscular Volume 91.2 fL (81-99); Mean Platelet Vol. 10.7 fl (6.2-12.0); NRBC Flagged by Analyzer 0 % (0-5); Platelet Count 358 K/mm3 (150-450); RBC Distribution Width CV 12.8 % (11.6-14.6); RBC Distribution Width SD 42.3 fl (35.1-43.9); Red Blood Count 4.66 M/mm3 (4.2-5.4); White Blood Count 8.6 K/mm3 (4.4-11.0)
[2024-11-27 10:43] LABS: AST(SGOT) 25 U/L (<=31); Alanine Aminotransfer ALT/SGPT 28 U/L (<=34); Albumin, Serum 4.5 g/dL (3.4-4.8); Alkaline Phosphatase 162 U/L (35-104); Anion Gap 13 (5-15); BUN 14 mg/dL (4-19); BUN/Creat Ratio 17.5 RATIO (10-20); Calcium,Total 10.0 mg/dL (7.6-11.0); Carbon Dioxide 24.6 mmol/L (21.0-32.0); Chloride 101 mmol/L (98-108); Globulin 2.7 g/dL (2.2-4.2); Glucose 92 mg/dL (70-99); Potassium 4.3 mmol/L (3.3-5.1)
== END | disposition home or self-care (01) ==
LOC: MTLAB 08:04
PROVIDERS: PCP Family Medicine; Referring Provider Internal Medicine Rheumatology; Visit Provider Internal Medicine Rheumatology
DX: L40.59 Other psoriatic arthropathy (principal); M79.7 Fibromyalgia; Z79.899 Other long term (current) drug therapy
CPT/HCPCS: 36415; 80053; 85025

== ENCOUNTER → 2025-01-15 | Outpatient (CLI) | payer OTHER, SELFPAY ==
[2025-01-15 13:13] LABS: Hematocrit 41.3 % (37-47); Hemoglobin 13.2 g/dL (12.0-15.0); Immature Granulocytes Count 0.040 X10^3/uL (0.0-0.0); Mean Corp Hgb Conc 32.0 g/dL (32-36); Mean Corpuscular Volume 90.2 fL (81-99); Mean Platelet Vol. 11.6 fl (6.2-12.0); NRBC Flagged by Analyzer 0 % (0-5); Platelet Count 321 K/mm3 (150-450); RBC Distribution Width CV 13.9 % (11.6-14.6); RBC Distribution Width SD 45.2 fl (35.1-43.9); Red Blood Count 4.58 M/mm3 (4.2-5.4); White Blood Count 7.2 K/mm3 (4.4-11.0)
[2025-01-15 14:28] LABS: AST(SGOT) 24 U/L (<=31); Alanine Aminotransfer ALT/SGPT 29 U/L (<=34); Albumin, Serum 4.4 g/dL (3.4-4.8); Alkaline Phosphatase 166 U/L (35-104); Anion Gap 16 (5-15); BUN 12 mg/dL (4-19); BUN/Creat Ratio 14.1 RATIO (10-20); Calcium,Total 10.0 mg/dL (7.6-11.0); Carbon Dioxide 22.6 mmol/L (21.0-32.0); Chloride 101 mmol/L (98-108); Globulin 2.7 g/dL (2.2-4.2); Glucose 92 mg/dL (70-99); Potassium 4.3 mmol/L (3.3-5.1)
== END | disposition home or self-care (01) ==
PROVIDERS: PCP Family Medicine; Referring Provider Internal Medicine Rheumatology; Visit Provider Internal Medicine Rheumatology
DX: L40.59 Other psoriatic arthropathy (principal); Z79.899 Other long term (current) drug therapy; M79.7 Fibromyalgia
CPT/HCPCS: 36415; 80053; 85025

== ENCOUNTER → 2025-01-30 | Outpatient (CLI) | payer OTHER, SELFPAY ==
--- OUTSIDE RECORDS SUMMARY | 2025-01-30 07:18 | XMS RPT_ITS | CCD ---
Author Organization [facility] Care Team Providers Care Make Up Operator Name Role Phone Unavailable Primary Care Provider Unavailabl e Greyson GARCIA, Dr. Gaspar Primary Care Provider Tere PETTY, Dr. Saha Attending Provider Tere PETTY, Dr. Saha Referring Provider Dr. Chasity Rubi DO Attending Provider Greyson GARCIA, Dr. Gaspar Referring Provider Dr. Emilie Wheatley MD Primary Care Provider Dr. Chasity Rubi DO Primary Care Provider Dr. Maria A Carranza MD Attending Provider Dr. Maria A Carranza MD Referring Provider Dr. Emilie Wheatley MD Referring Provider Vipin MURPHY-CAngeline Attending Provider Dr. Chasity Rubi DO Primary Care Provider Tere PETTY, Dr. Saha Attending Provider Tere PETTY, Dr. Saha Referring Provider Vipin MURPHY-CAngeline Referring Provider Emilie Wheatley MD Primary Care Provider Vipin MURPHY-C, Angeline Other Provider Dr. Shivam Pryor DO Attending Provider LEE ANN PEREZ Attending Unavailable ANGELINE LEW Referring Unavailable EMILIE WHEATLEY Primary Care Unavailable LALA GONZALES Attending Unavailable [facility] Primary Care Unavailable PEREZ, LEE ANN A Attending Unavailable [facility] Primary Care Unavailable PEREZ, LEE ANN A Admitting Unavailable PEREZ, LEE ANN A Attending Unavailable [facility] Primary Care Unavailable Corry PETTY, Emilie Primary Care Provider Vipin RUSTIC FENCE BUILDER-C, Angeline Attending Provider Dr. Emilie Wheatley MD Referring Provider Tere PETTY, Dr. Saha Attending Provider Tere PETTY, Dr. Saha Referring Provider Lew RUSTIC FENCE BUILDER, Angeline Referring Unavailable [facility] [place] Primary Care Unavailable Shivam Pryor Attending Unavailable Lew RUSTIC FENCE BUILDER, Angeline Consulting Unavailable Lew RUSTIC FENCE BUILDER, Angeline Referring Unavailable [facility] [place] Primary Care Unavailable Shivam Pryor Attending Unavailable Lew RUSTIC FENCE BUILDER, Angeline Attending Unavailable [facility], Emilie Referring Unavailable [place], [place] Primary Care Unavailable Lew RUSTIC FENCE BUILDER, Angeline Attending Unavailable Lew RUSTIC FENCE BUILDER, Angeline Referring Unavailable [facility] [place] Primary Care Unavailable Lew RUSTIC FENCE BUILDER, Angeline Attending Unavailable Mied, Emilie Referring Unavailable [facility] [place] Primary Care Unavailable Lew RUSTIC FENCE BUILDER, Angeline Attending Unavailable Mied, Emilie Referring Unavailable [facility] [place] Primary Care Unavailable Vellanki, Maria A Referring Unavailable Vellanki, Maria A Attending Unavailable Malys, Chasity Primary Care Unavailable Malys, Chasity Primary Care Unavailable Vellanki, Maria A Referring Unavailable Vellanki, Maria A Attending Unavailable Lew RUSTIC FENCE BUILDER, Angeline Attending Unavailable Lew RUSTIC FENCE BUILDER, Angeline Referring Unavailable [facility], [place] Primary Care Unavailable Lew RUSTIC FENCE BUILDER, Angeline Attending Unavailable [place], [place] Primary Care Unavailable Vellanki, Maria A Referring Unavailable Vellanki, Maria A Attending Unavailable Vellanki, Maria A Attending Unavailable Vellanki, Maria A Referring Unavailable Miedel, Emilie Primary Care Unavailable Malys, Chasity Attending Unavailable Malys, Chasity Referring Unavailable [place], [place] Primary Care Unavailable Vellanki, Maria A Referring Unavailable Vellanki, Maria A Attending Unavailable Mied, Emilie Primary Care Unavailable Malys, Chasity Primary Care Unavailable Vellanki, Maria A Referring Unavailable Vellanki, Maria A Attending Unavailable Malys, Chasity Primary Care Unavailable Vellanki, Maria A Referring Unavailable Vellanki, Maria A Attending Unavailable Malys, Chasity Attending Unavailable Malys, Chasity Referring Unavailable OkEmilie culver Primary Care Unavailable Vellanki, Maria A Referring Unavailable Vellanki, Maria A Attending Unavailable Malys, Chasity Primary Care Unavailable Allergies Allergy Classification Reported Allergen(s) Allergy Type Date of Onset Reaction(s) Facility (14 sources) E[facility]thromycin Drug Allergy 2 [facility] (1 source) Penicillins Drug Allergy 2 Intolerance [facility] (13 sources) Codeine Drug Allergy 5 [facility] (5 sources) Penicillins Allergy to substance 5 [facility] (8 sources) Penicillins Drug Allergy 2 [facility] (5 sources) Non-steroidal anti-inflammator y agent Propensity to adverse reactions 5 [facility] (5 sources) pineapple allergenic extract Drug Allergy 5 Itching [facility] (5 sources) vanilla [place] allergenic extract Drug Allergy 5 [facility], [facility] (5 sources) Wound Dressing Adhesive Propensity to adverse reactions 5 [facility] (1 source) Codeine Drug Allergy 5 [facility] (1 source) Erythromycin Drug Allergy 5 [facility] (1 source) Penicillins Drug allergy (disorder) 5 [facility] Medications Current Medications Medication Drug Class(es) Dates Sig (Normalized) Sig (Original) Acetaminophen (Tylenol Extra Strength) 500 mg powder in packet (5 sources) Start: 07-30-2024 take 1000 mg by mouth twice daily Acetaminophen (Tylenol Extra Strength) 500 mg powder in packet Active 1000 mg PO TWICE A DAY July 30, 2024 12:00am acetaminophen 325 mg / HYDROcodone bitartrate 5 mg oral tablet (6 sources) Opioid Agonist Start: 09-25-2024 End: 09-30-2024 take 1 tablet by mouth every four hours as needed for pain HYDROcodone-acetami nophen ([place]) 5-325 MG tablet Indications: Lung nodule Take 1 tablet by mouth every 4 hours as needed for moderate pain (4-6) for up to 5 days. 20 tablet 09/25/2024 09/30/2024 Active Start: 09-21-2024 End: 09-25-2024 take 1 tablet by mouth every four hours as needed for pain HYDROcodone-acetaminophen ([place]) 5-325 MG per tablet 1 tablet Calcium Carbonate-Vitamin D2 500 mg(1,250mg) -200 unit tablet (5 sources) Start: 07-30-2024 Calcium Carbonate-Vitamin D2 500 mg(1,250mg) -200 unit tablet Active {tbl} PO daily July 30, 2024 12:00am DULoxetine 60 mg delayed release oral capsule (15 sources) Serotonin and Norepinephrine Reuptake Inhibitor Start: 07-30-2024 End: 09-25-2024 take 1 capsule by mouth once daily Duloxetine (Cymbalta) 60 mg capsule,delayed release(DR/EC) Active 60 mg PO daily July 30, 2024 12:00am Ergocalciferol (8 sources) Provitamin D2 Compound take 1 tablet by mouth once daily Ergocalciferol (VITAMIN D2 PO) Take 1 tablet by mouth daily. Suspended take 1 tablet by mouth once sara y Ergocalciferol (VITAMIN D2 PO) Take 1 tablet by mouth daily. Active Lbepbygjxfn-Syfuhaxyx-Hmvbmn er (2 sources) Anticholinergic, Corticosteroid, beta2-Adrenergic Agonist Start: 11-07-2024 Zfygwndyzoy-Qmumiejuj-Uhmxog er (Trelegy Ellipta) 100-62.5-25 mcg blister with device Active 1 NMA INHALATION daily 60 3 November 07, 2024 12:00am Adenocarcinoma of left lung Malignant neoplasm of unspecified part of left bronchus or lung Chronic obstructive pulmonary disease, unspecified administer at approximately the same time(s) each day folic acid 1 mg oral tablet (11 sources) Start: 08-17-2024 t a k e 2 t a b l e t s b y m o u t h o n c e d a i l y Folic Acid 1 mg tablet Active 2 mg PO daily August 17, 2024 12:00am leucovorin 15 mg oral tablet (16 sources) Folate Analog Start: 08-17-2024 t a k e 1 t a b l e t b y m o u t h e v e r y w e e k Leucovorin Calcium 15 mg tablet Active 15 mg PO EVERY WEEK August 17, 2024 12:00am Start: 07-30-2024 End: 08-17-2024 take 1 tablet by mouth every week Leucovorin Calcium 5 mg tablet Discontinued 5 mg PO EVERY WEEK July 30, 2024 12:00am August 17, 2024 7:49am methocarbamol 500 mg oral tablet (8 sources) Muscle Relaxant Start: 09-25-2024 End: 10-04-2024 take 1.5 tablets by mouth every eight hours methocarbamol (Robaxin) 500 MG tablet Take 1.5 tablets (750 mg) by mouth every 8 hours for 9 days. 40 tablet 09/25/2024 Active Start: 09-22-2024 End: 09-25-2024 take 1 tablet by mouth every eight hours as needed 1,000 mg, Oral, Every 8 hours PRN, muscle spasms, Starting on 09/22/24 at 1142 methotrexate 2.5 mg oral tablet (11 sources) Folate Analog Metabolic Inhibitor Start: 08-17-2024 Methotrexate Sodium 2.5 mg tablet Active 20 mg PO EVERY WEEK August 17, 2024 12:00am predniSONE 5 mg oral tablet (11 sources) Start: 08-17-2024 take 1 tablet by mouth once daily as needed Prednisone 5 mg tablet Active 5 mg PO daily as needed August 17, 2024 12:00am varenicline 0.5 mg oral tablet (8 sources) Partial Cholinergic Nicotinic Agonist take 1 tablet by mouth twice daily varenicline (Chantix) 0.5 MG tablet Take 0.5 mg by mouth 2 times daily. Take with full glass of water. Active Varenicline Tartrate (Chantix Starting Box) 0.5 mg (11)- 1 mg (42) tablets,dose pack (3 sources) Start: 08-17-2024 take 1 tablet by mouth once Varenicline Tartrate (Chantix Starting Box) 0.5 mg (11)- 1 mg (42) tablets,dose pack Active 0 PO per package directions 53 0 August 17, 2024 12:00am PO PER PKG DIR Start: 08-17-2024 take 1 tablet by mouth once Va renicline Tartrate (Chantix Starting Month Box) 0.5 mg (11)- 1 mg (42) tablets,dose pack Active 0 PO per package directions 53 August 17, 2024 12:00am PO PER PKG DIR Completed/Discontinued Medications Medication Drug Class(es) Dates Sig (Normalized) Sig (Original) acetaminophen 325 mg oral tablet (12 sources) Start: 09-20-2024 End: 09-21-2024 take 1 tablet by mouth every six hours 650 mg, Oral, Every 6 hours, First dose on Tue09/20/24 at 1800, Phase II/On Unit, Maximum dose of acetaminophen is 4000 mg from all sources in 24 hours. Start: 09-20-2024 End: 09-20-2024 1,000 mg, Oral, Once, On Tue09/20/24 at 1015, For 1 dose, Preprocedure, Administer 60 minutes prior to surgery. Start: 09-20-2024 End: 09-20-2024 1,000 mg, Oral, Once, On Ирина 09/20/24 at 1015, For 1 dose, Preprocedure, Administer 60 minutes prior to surgery. take [address] [facility] twice daily acetaminophen (Tylenol) 500 MG tablet Take 1,000 mg by mouth 2 times daily. Active aspirin/acetaminophen/caffei ne (EXCEDRIN EXTRA STRENGTH ORAL) (1 source) aspirin/acetamin ophen/caffeine (EXCEDRIN EXTRA STRENGTH ORAL) Take by mouth. 0 Active Comment on above: Take by mouth. 10 ml bupivacaine liposome 1 3.3 mg/ml injection (2 sources) Amide Local Anesthetic S t a r t : 0 5 - 1 5 - 2 0 2 5 E n d : 0 5 - 1 5 - 2 0 2 5 Injection, Once PRN Procedur e, Starting on Tue09/20/24 at 1345, For 1 dose, Anesthesia Intraprocedure calcium carbonate 500 mg chewable tablet (2 sources) S t a r t : 0 5 - 1 6 - 2 0 2 5 E n d : 0 5 - 2 0 - 2 0 2 5 take 1000 mg by mouth twice daily as needed for gastroesoph ageal reflux disease 1,000 mg, Oral, 2 times daily PRN, indigestion, heartburn, Starting on Tue09/21/24 at 1025 calcium chloride 0.0014 meq/ ml / potassium chloride 0.004 meq/ml / sodium chloride 0.103 meq/ml / sodium lactate 0.028 meq/ml injectable solution (4 sources) S t a r t : 0 5 - 1 5 - 2 0 2 5 E n d : 0 5 - 1 5 - 2 0 2 5 IntraVENous, Continuous PRN, Starting on Ирина 09/20/24 at 1350, Anesthesia Intraprocedure Start: 09-20-2024 End: 09-20-2024 take 50 mL intravenously every hour 50 mL/hr, IntraVENous, Continuous, Starting on Ирина 09/20/24 at 1015, Preprocedure, Upon admission to sameday - please start iv if patient does not have iv access. Use 500ml NS for patients on dialysis. cetirizine hydrochloride 10 mg oral tablet (16 sources) Histamine-1 Receptor Antagonist Start: 09-21-2024 End: 09-25-2024 take 10 mg by mouth once daily 10 mg, Oral, Daily, First dose on Tue09/21/24 at 0900 Start: 07-30-20[address] [facility] once daily Cetirizine (Zyrtec) 10 mg capsule Active 10 mg PO daily July 30, 2024 12:00am cetirizine HCl ( ZYRTEC ORAL) Take by mouth. 0 Active Comment on above: Take by mouth. 1 ml dexamethasone phosphate 10 mg/ml injection (1 source) Corticosteroid Start: 09-20-2024 End: 09-20-2024 IntraVENous, As needed, Starting on Ирина 09/20/24 at 1335, Anesthesia Intraprocedure vmcAAQAKjssat-yppezoegpbk-t pinephrine (TAP) syringe (2 sources) Start: 09-20-2024 End: 09-20-2024 Injection, Once PRN Procedure, Starting on Ирина 09/20/24 at 1345, For 1 dose, Anesthesia Intraprocedure Start: 09-20-2024 End: 09-20-2024 Injection, Once PRN Procedur e, Starting on Ирина 09/20/24 at 1255, For 1 dose, Anesthesia Intraprocedure dexmedeTOMIDine HCl in NaCl (Precedex) injection (1 source) Start: 09-20-2024 End: 09-20-2024 IntraVENous, Continuous PRN, Starting on Ирина 09/20/24 at 1400, Anesthesia Intraprocedure diphenhydrAMINE hydrochloride 25 mg oral tablet (2 sources) Histamine-1 Receptor Antagonist Start: 09-21-2024 End: 09-25-2024 take 1 tablet by mouth every eight hours as needed 25 mg, Oral, Every 8 hours PRN, itching, Starting on Tue09/21/24 at 1646 docusate sodium 50 mg / sennosides, senior living 8.6 mg oral tablet (4 sources) Start: 09-23-2024 End: 09-25-2024 take 2 tablets by mouth once daily 2 tablet, Oral, Daily, First dose (after last modification) on Tue09/23/24 at 0915, Phase II/On Unit Start: 09-22-2024 End: 09-23-2024 take 1 tablet by mouth twice daily 1 tablet, Oral, 2 times daily, First dose on Tue09/22/24 at 0900 0.4 ml enoxaparin sodium 100 mg/ml prefilled syringe (2 sources) Low Molecular Weight Heparin Start: 09-21-2024 End: 09-25-2024 inject 40 mg by subcutaneous injection every twenty-four hours 40 mg, SubCUTAneous, Every 24 hours, First dose on Tue09/21/24 at 0900, Phase II/On Unit, Indication of Use: Prophylaxis-DVT/PE, Indications: Prophylaxis of Venous Thromboembolism 1 ml ePHEDrine sulfate 50 mg/ml injection (1 source) alpha-Adrenergic Agonist, beta-Adrenergic Agonist, Norepinephrine Releasing Agent Start: 09-20-2024 End: 09-20-2024 IntraVENous, As needed, Starting on Ирина 09/20/24 at 1441, Anesthesia Intraprocedure 10 ml esmolol hydrochloride 10 mg/ml injection (1 source) beta-Adrenergic [place] Start: 09-20-2024 End: 09-20-2024 IntraVENous, As needed, Starting on Ирина 09/20/24 at 1335, Anesthesia Intraprocedure 1 ml HYDROmorphone hydrochloride 1 mg/ml cartridge (3 sources) Opioid Agonist Start: 09-20-2024 End: 09-20-2024 0.5 mg, IntraVENous, Every 5 min PRN, severe pain (7-10), Starting on Ирина 09/20/24 at 1623, For 4 doses, Recovery (only), Phase I and Phase II- Initial therapy for severe pain (7-10). Restricted to a 90 minute time frame starting when the patient can verbally state their pain score. If after 2 doses the pain score does not decrease by more than one point, then call the provider. If oral meds are utilized, do not return to initial therapy medications. Start: 09-20-2024 End: 09-20-2024 IntraVENous, As needed, Star ting on Ирина 09/20/24 at 1534, Anesthesia Intraprocedure HYDROmorphone (Dilaudid) 30 mg in sodium chloride 0.9 % 30 mL (1 mg/mL) SEALS ENGRAVER (2 sources) Start: 09-20-2024 End: 09-21-2024 SEALS ENGRAVER Dose: 0.3 mg, Lockout Interval: 15 Minutes, Basal (Continuous) Dose: 0 mg/hr, One Hour (Max) Limit: 1.2 mg, Loading Dose: 0 mg, IntraVENous, Continuous, Starting on Ирина 09/20/24 at 1845, Do NOT administer any narcotics in addition to SEALS ENGRAVER unless directed to do so by an APS provider. HYDROmorphone (Dilaudid) injection 0.25 mg (2 sources) Start: 09-21-2024 End: 09-25-2024 take 0.25 mg intravenously every four hours as needed for pain HYDROmorphone (Dilaudid) injection 0.25 mg Ibuprofen (1 source) Nonsteroidal Anti-inflammatory Drug ibuprofen (MOTRIN ORAL) Take by mouth. 0 Active Comment on above: Take by mouth. 1 ml ixekizumab 80 mg/ml auto-injector (10 sources) Interleukin-17A Antagonist Start: 07-30-2024 End: 08-17-2024 Ixekizumab (Taltz Autoinjector) 80 mg/mL auto-injector Discontinued 80 mg SC .once a month July 30, 2024 12:00am August 17, 2024 7:49am Start: 07-30-2024 End: 08-17-2024 Ixekizumab (Taltz Autoinject or (2 Pack)) 80 mg/mL auto-injector Discontinued 160 mg SC ONCE July 30, 2024 12:00am August 17, 2024 7:49am ketamine 10 mg/ml injectable solution (1 source) General Anesthetic Start: 09-20-2024 End: 09-20-2024 IntraVENous, As needed, Starting on Ирина 09/20/24 at 1334, Anesthesia Intraprocedure labetalol hydrochloride 5 mg/ml injectable solution (2 sources) beta-Adrenergic [place] Start: 09-21-2024 End: 09-25-2024 take 10 mg intravenously every four hours as needed for hypertension 10 mg, IntraVENous, Every 4 hours PRN, high blood pressure, SBP > 160, hold for HR 10 ml lidocaine hydrochloride 20 mg/ml injection (1 source) Antiarrhythmic, Amide Local Anesthetic Start: 09-20-2024 End: 09-20-2024 IntraVENous, As needed, Starting on Ирина 09/20/24 at 1334, Anesthesia Intraprocedure 1 ml LORazepam 2 mg/ml injection (2 sources) Benzodiazepine Start: 09-20-2024 End: 09-20-2024 0.5 mg, IntraVENous, Once PRN, for anxiety or muscle spasm., Starting on Ирина 09/20/24 at 1623, For 1 dose, Recovery (only), For IV doses dilute dose with 1ml NS. magnesium hydroxide 80 mg/ml oral suspension (4 sources) Start: 09-23-2024 End: 09-25-2024 take 8 [oz_av] by mouth once daily 30 mL, Oral, Nightly PRN, constipation, Starting on 09/24/24 at 1330, Phase II/On Unit, Follow dose with 8 oz of water. 50 ml magnesium sulfate 40 mg/ml injection (1 source) Start: 09-20-2024 End: 09-20-2024 IntraVENous, Administer over 2 Hours, As needed, Starting on Ирина 09/20/24 at 1439, Anesthesia Intraprocedure Melatonin (1 source) MELATONIN ORAL Take by mouth. 0 Active Comment on above: Take by mouth. Methotrexate 2 mg/mL solution (5 sources) Start: 07-30-2024 End: 08-17-2024 take 8 tablets by mouth every week Methotrexate 2 mg/mL solution Discontinued 0 PO EVERY WEEK July 30, 2024 12:00am August 17, 2024 7:48am 8 tabs orally every week; Start: 07-30-2024 take 8 tablets by mo [facility] every week Methotrexate 2 mg/mL solution Active 0 PO EVERY WEEK July 30, 2024 12:00am 8 tabs orally every week; 2 ml midazolam 1 mg/ml injection (1 source) Benzodiazepine Start: 09-20-2024 End: 09-20-2024 IntraVENous, Once PRN Procedure, Starting on Tue09/20/24 at 1255, For 1 dose, Anesthesia Intraprocedure mupirocin 0.02 mg/mg topical ointment (2 sources) RNA Synthetase Inhibitor Antibacterial Start: 09-20-2024 End: 09-25-2024 1 Application, Nasal, 2 times daily, First dose on Tue09/20/24 at 2100, For 5 days, Phase II/On Unit, Indications: MRSA Nasal Decolonization 1 ml naloxone hydrochloride 0.4 mg/ml injection (2 sources) Opioid Antagonist Start: 09-21-2024 End: 09-25-2024 0.4 mg, IntraVENous, Every 5 min PRN, opioid reversal, respiratory depression, Starting on Tue09/21/24 at 1143, +++ For RR 2 ml ondansetron 2 mg/ml injection (1 source) Serotonin-3 Receptor Antagonist Start: 09-20-2024 End: 09-20-2024 IntraVENous, As needed, Starting on Tue09/20/24 at 1531, Anesthesia Intraprocedure ondansetron ODT (Zofran-ODT) disintegrating tablet 4 mg (2 sources) Start: 09-20-2024 End: 09-25-2024 take 1 tablet by mouth every eight hours as needed for nausea and vomiting ondansetron ODT (Zofran-ODT) disintegrating tablet 4 mg Phenylephrine HCl (Pressors) 1 MG/10ML injection (1 source) Start: 09-20-2024 End: 09-20-2024 IntraVENous, As needed, Starting on Tue09/20/24 at 1428, Anesthesia Intraprocedure polyethylene glycol 3350 [id number] mg powder for oral solution (4 sources) Osmotic Laxative Start: 09-24-2024 End: 09-25-2024 17 g, Oral, 2 times daily PRN, constipation, Starting on Tue09/24/24 at 1330, Phase II/On Unit Start: 09-21-2024 End: 09-23-2024 17 g, Oral, Daily, First dos e on Tue09/21/24 at 0900, Phase II/On Unit 20 ml propofol 10 mg/ml injection (1 source) General Anesthetic Start: 09-20-2024 End: 09-20-2024 IntraVENous, As needed, Starting on Ирина 09/20/24 at 1334, Anesthesia Intraprocedure rocuronium bromide 10 mg/ml injectable solution (1 source) Nondepolarizing Neuromuscular Edmar Start: 09-20-2024 End: 09-20-2024 IntraVENous, As needed, Starting on Ирина 09/20/24 at 1335, Anesthesia Intraprocedure 5 ml sodium chloride 9 mg/ml injection (6 sources) Start: 09-20-2024 End: 09-25-2024 5-40 mL, IntraVENous, Every 12 hours scheduled (2 times per day), First dose on Ирина 09/20/24 at 2100, Phase II/On Unit, or Line Patency: Peripheral IV = 5 mL; Midline or Central Line = 10 mL/lumen. If following IV push medication, administer flush at same rate as the IV push. Flush volume is determined by type of infusion therapy being given. For non-viscous solutions use: Peripheral IV = 5 mL Midline or Central Line = 10 mL/lumen For viscous solutions (i.e. blood components, parenteral nutrition, contrast media, or after obtaining blood sample) use: Peripheral IV = 10 mL Midline or Central Line = 20 mL/lumen Start: 09-20-2024 End: 09-25-2024 Start: 09-20-2024 End: 09-25-2024 2 ml sugammadex 100 mg/ml injection (1 source) Start: 09-20-2024 End: 09-20-2024 IntraVENous, As needed, Starting on Ирина 09/20/24 at 1614, Anesthesia Intraprocedure Vancomycin (1 source) Glycopeptide Antibacterial Start: 09-20-2024 End: 09-20-2024 1,250 mg (rounded from 1,210.5 mg = 15 mg/kg 80.7 kg), IntraVENous, at 166.7 mL/hr, Administer over 90 Minutes, Farmworker Cranberry to O.R., On Ирина 09/20/24 at 1015, For 1 dose, Preprocedure, Administer within 1 hour prior to incision. premix bag, Suspected Indication (Select all that apply): Surgical Prophylaxis, Indications: Default Settings:Auto-dosed by Weight Farmworker Cranberry to O.R x 1 dose Auto-dosed: Pt wt 120kg 2gm Problems Active Problems Problem Classification Problem Date Documented Date Episodic/Chronic Allergic reactions (9 sources) Allergic condition; Translations: [Allergy, unspecified, initial encounter] 07-30-2024 Episodic Cancer of bronchus; lung (7 sources) Adenocarcinoma of left lung; Translations: [Malignant neoplasm of unspecified part of left bronchus or lung] Onset: 11-07-2024 11-07-2024 Chronic Chronic obstructive pulmonary disease and bronchiectasis (5 sources) Mild chronic obstructive pulmonary disease; Translations: [Chronic obstructive pulmonary disease, unspecified] Onset: 11-07-2024 11-07-2024 Chronic Comment on above: FEV1 75% Immunizations and screening for infectious disease (1 source) Suspected disease caused by 2019-nCoV; Translations: [Suspected COVID-19 virus infection] Episodic Malignant neoplasm without specification of site (2 sources) Malignant adenomatous neoplasm; Translations: [Malignant (primary) neoplasm, unspecified] 10-09-2024 Chronic Other aftercare (1 source) Other long-term (current) drug therapy; Translations: [Other termite control servicer (current) drug therapy] Onset: 01-22-2025 Episodic Other connective tissue disease (1 source) Fibromyalgia; Translations: [Fibromyalgia] Onset: 01-22-2025 Episodic Other inflammatory condition of skin (5 sources) Psoriatic arthritis; Translations: [Arthropathic psoriasis, unspecified] 07-30-2024 Chronic Other inflammatory condition of skin (2 sources) Other psoriatic arthropathy; Translations: [Other psoriatic arthropathy] Onset: 12-03-2024 Chronic Other inflammatory condition of skin (1 source) Other psoriasis; Translations: [Other psoriasis] Onset: 01-22-2025 Chronic Other lower respiratory disease (20 sources) Nodule of lung; Translations: [Solitary pulmonary nodule] Onset: 09-20-2024 07-30-2024 Episodic Comment on above: Left lower lobe imag ing personally reviewed Other lower respiratory disease (6 sources) Dyspnea; Translations: [Shortness of breath] 08-17-2024 Episodic Other lower respiratory disease (3 sources) Solitary nodule of lung; Translations: [Solitary pulmonary nodule] Onset: 09-20-2024 09-20-2024 Episodic Other lower respiratory disease (1 source) Solitary pulmonary nodule; Translations: [Solitary pulmonary nodule] Onset: 09-20-2024 Episodic Residual codes; unclassified (4 sources) H/O: pneumonectomy; Translations: [Acquired absence of lung [part of]] 10-10-2024 Episodic Residual codes; unclassified (2 sources) Harmful pattern of use of nicotine; Translations: [Tobacco use] 11-07-2024 Episodic Rheumatoid arthritis and related disease (3 sources) Rheumatoid arthritis; Translations: [Rheumatoid arthritis, unspecified] Onset: 08-28-2024 08-28-2024 Chronic Substance-related disorders (12 sources) Cigarette smoker ; Translations: [Nicotine dependence, cigarettes, uncomplicated] 07-30-2024 Chronic Unclassified (2 sources) Abnormal positron emission tomography of left lung; Translations: [R94.2 - Abnormal results of pulmonary function studies] Past or Other Problems Problem Classification Problem Date Documented Da te Episodic/Chronic Nonmalignant breast conditions (1 source) Other specified disorders of breast; Translations: [Other specified disorders of breast] Onset: 08-02-2024 Episodic Other lower respiratory disease (2 sources) Shortness of breath; Translations: [Shortness of breath] Onset: 09-04-2024 Episodic Other lower respiratory disease (1 source) Other nonspecific abnormal finding of lung field; Translations: [Other nonspecific abnormal finding of lung field] Onset: 08-13-2024 Episodic Other screening for suspected conditions (not mental disorders or infectious disease) (7 sources) Imaging of lung abnormal ; Translations: [Abnormal results of pulmonary function studies] Onset: 07-27-2024 08-17-2024 Episodic Comment on above: Left lower lobe Results Test Name Value Interpretation Reference Range Facility CBC W/Diff, Automatedon 09-0 Absolute Lymph 1.33 X10 3/uL Normal 0.83-4.51 [facility] Comment on above: Performed By: #### L 100.0100, L500.4050 #### [facility] [address] [place], [place], [address] Absolute Neut 4.9 X10 3/uL Normal 2.0-7.7 [facility] Comment on above: Performed By: #### L 100.0100, L500.4050 #### [facility] [address] [place], [address] Basophils/100 WBC (Bld) 0.7 % Normal 0-1 [facility] Comment on above: Performed By: #### L 100.0100, L500.4050 #### [facility] [address] [place], [address] Eosinophils/100 WBC (Bld) 3.5 % Normal 0-5 [facility] Comment on above: Performed By: #### L 100.0100, L500.4050 #### [facility] [address] [place], [address] Erythrocyte distribution width (RBC) [Ratio] 13.9 % Normal 11.6-14.6 [facility] Comment on above: Performed By: #### L 100.0100, L500.4050 #### [facility] [address] [place], [address] Hematocrit (Bld) [Volume fraction] 41.3 % Normal 37-47 [facility] Comment on above: Performed By: #### L 100.0100, L500.4050 #### [facility] [address] [place], [address] Hemoglobin (Bld) [Mass/Vol] 13.2 g/dL Normal 12.0-15.0 [facility] Comment on above: Performed By: #### L 100.0100, L500.4050 #### [facility] [address] [place], [address] IG% 0.600 Normal 0.0-0.9 [facility] Comment on above: Result Comment: IG% - Immature Granulocytes (promyelocytes, myelocytes and metamyelocytes) > 1% indicates that a LEFT SHIFT is Present. Performed By: #### L 100.0100, L500.4050 #### [facility] [address] [place], [address] Lymphocytes/100 WBC (Bld) 18.6 % Low 19-41 [facility] Comment on above: Performed By: #### L 100.0100, L500.4050 #### [facility] [address] [place], [address] MCH (RBC) [Entitic mass] 28.8 pg Normal 27.0-32.0 [facility] Comment on above: Performed By: #### L 100.0100, L500.4050 #### [facility] [address] [place], [address] MCHC (RBC) [Mass/Vol] 32.0 g/dL Normal 32-36 [facility] Comment on above: Performed By: #### L 100.0100, L500.4050 #### [facility] [address] [place], [address] MCV (RBC) [Entitic vol] 90.2 fL Normal 81-99 [facility] Comment on above: Performed By: #### L 100.0100, L500.4050 #### [facility] [address] [place], [address] Monocytes/100 WBC (Bld) 8.1 % Normal 0-10 [facility] Comment on above: Performed By: #### L 100.0100, L500.4050 #### [facility] [address] [place], [address] Neutrophils/100 WBC (Bld) 68.5 % Normal 47-70 [facility] Comment on above: Performed By: #### L 100.0100, L500.4050 #### [facility] [address] [place], [address] Nucleated RBC (Bld) [#/Vol] 0 10*3/uL Normal 0-5 [facility] Comment on above: Performed By: #### L 100.0100, L500.4050 #### [facility] [address] [place], [address] Platelet mean volume (Bld) [Entitic vol] 11.6 fL Normal 6.2-12.0 [facility] Comment on above: Performed By: #### L 100.0100, L500.4050 #### [facility] [address] [place], [address] Platelets (Bld) [#/Vol] 321 10*3/uL Normal 150-450 [facility] Comment on above: Performed By: #### L 100.0100, L500.4050 #### [facility] [address] [place], [address] RBC (Bld) [#/Vol] 4.58 10*6/uL Normal 4.2-5.4 [facility] Comment on above: Performed By: #### L 100.0100, L500.4050 #### [facility] [address] [place], [address] RDW SD 45.2 fl High 35.1-43.9 [facility] Comment on above: Performed By: #### L 100.0100, L500.4050 #### [facility] [address] [place], [address] WBC (Bld) [#/Vol] 7.2 10*3/uL Normal 4.4-11.0 [facility] Comment on above: Performed By: #### L 100.0100, L500.4050 #### [facility] [address] [place], [address] Comprehensive Metabolic Prof ilon 01-15-2025 Albumin [Mass/Vol] 4.4 g/dL Normal 3.4-4.8 [facility] Comment on above: Performed By: #### L 100.0100, L500.4050 #### [facility] [address] [place], [address] Albumin/Globulin [Mass ratio] 1.6 {ratio} Normal 0.9-2.4 [facility] Comment on above: Performed By: #### L 100.0100, L500.4050 #### [facility] [address] [place], [address] ALK PHOS 166 U/L High 35-104 [facility] Comment on above: Performed By: #### L 100.0100, L500.4050 #### [facility] [address] [place], [address] ALT [Catalytic activity/Vol] 29 U/L Normal <=34 [facility] Comment on above: Performed By: #### L 100.0100, L500.4050 #### [facility] [address] [place], [address] AST [Catalytic activity/Vol] 24 U/L Normal <=31 [facility] Comment on above: Performed By: #### L 100.0100, L500.4050 #### [facility] [address] [place], [address] Bilirubin [Mass/Vol] 0.34 mg/dL Normal 0.00-1.30 [facility] Comment on above: Performed By: #### L 100.0100, L500.4050 #### [facility] [address] [place], [address] BUN/CRE 14.1 RATIO Normal 10-20 [facility] Comment on above: Performed By: #### L 100.0100, L500.4050 #### [facility] [address] [place], [address] Calcium [Mass/Vol] 10.0 mg/dL Normal 7.6-11.0 [facility] Comment on above: Performed By: #### L 100.0100, L500.4050 #### [facility] [address] [place], [address] Chloride [Moles/Vol] 101 mmol/L Normal 98-108 [facility] Comment on above: Performed By: #### L 100.0100, L500.4050 #### [facility] [address] [place], [address] CO2 [Moles/Vol] 22.6 mmol/L Normal 21.0-32.0 [facility] Comment on above: Performed By: #### L 100.0100, L500.4050 #### [facility] [address] [place], [address] Creatinine [Mass/Vol] 0.82 mg/dL Normal 0.70-1.20 [facility] Comment on above: Performed By: #### L 100.0100, L500.4050 #### [facility] [address] [place], [address] GAP 16 High 5-15 [facility] Comment on above: Performed By: #### L 100.0100, L500.4050 #### [facility] [address] [place], [address] GFR/1.73 sq M.predicted among non-blacks MDRD (S/P/Bld) [Vol rate/Area] 80 mL/min/{1.73_m2} Normal >60 [facility] Comment on above: Result Comment: mL/m in/1.73m2 CKD-EPI Creatinine Equation (2020) Performed By: #### L 100.0100, L500.4050 #### [facility] [address] [place], [address] Globulin (S) [Mass/Vol] 2.7 g/dL Normal 2.2-4.2 [facility] Comment on above: Performed By: #### L 100.0100, L500.4050 #### [facility] [address] [place], [address] Glucose [Mass/Vol] 92 mg/dL Normal 70-99 [facility] Comment on above: Performed By: #### L 100.0100, L500.4050 #### [facility] [address] [place], [address] Potassium [Moles/Vol] 4.3 mmol/L Normal 3.3-5.1 [facility] Comment on above: Performed By: #### L 100.0100, L500.4050 #### [facility] [address] [place], [address] Sodium [Moles/Vol] 139 mmol/L Normal 133-145 [facility] Comment on above: Performed By: #### L 100.0100, L500.4050 #### [facility] [address] [place], [address] T PROT 7.1 g/dL Normal 5.9-8.4 [facility] Comment on above: Performed By: #### L 100.0100, L500.4050 #### [facility] [address] [place], [address] Urea nitrogen [Mass/Vol] 12 mg/dL Normal 4-19 [facility] Comment on above: Performed By: #### L 100.0100, L500.4050 #### [facility] [address] [place], [address] Absolute lymphocyte countOrd ered By: Maria A Carranza on 11-27-2024 Lymphocytes Auto (Unsp spec) [#/Vol] 1.56 10*3/uL 0.83-4.51 [facility] Absolute neutrophil countOrd ered By: Maria A Carranza on 11-27-2024 Neutrophils (Bld) [#/Vol] 5.9 10*3/uL 2.0-7.7 [facility] Anion gap in Serum or Plasma Ordered By: Maria A Carranza on 11-27-2024 Anion gap [Moles/Vol] 13 mmol/L 5- [facility] Automated lymphocyte count a s percentage of total leukocytesOrdered By: Maria A Carranza on 11-27-2024 Lymphocytes/100 WBC Auto (Unsp spec) 18.2 % Low 19-41 [facility] BUN/creatinine ratioOrdered By: Maria A Carranza on 11-27-2024 Urea nitrogen/Creatinine [Mass ratio] 17.5 mg/mg 10- [facility] Basophil percentageOrdered B y: Maria A Carranza on 11-27-2024 Basophils/100 WBC (Bld) 0.7 % 0-1 [facility] Bilirubin, totalOrdered By: Maria Atammie Carranza on 11-27-2024 Bilirubin [Mass/Vol] 0.40 mg/dL 0.00-1.30 [facility] CBC W/Diff, Automatedon 11-07 Absolute Lymph 1.56 X10 3/uL Normal 0.83-4.51 [facility] Comment on above: Performed By: #### L 100.0100, L500.4050 #### [facility] [address] [place], [address] Absolute Neut 5.9 X10 3/uL Normal 2.0-7.7 [facility] Comment on above: Performed By: #### L 100.0100, L500.4050 #### [facility] [address] [place], [address] Basophils/100 WBC (Bld) 0.7 % Normal 0-1 [facility] Comment on above: Performed By: #### L 100.0100, L500.4050 #### [facility] [address] [place], [address] Eosinophils/100 WBC (Bld) 2.7 % Normal 0-5 [facility] Comment on above: Performed By: #### L 100.0100, L500.4050 #### [facility] [address] [place], [address] Erythrocyte distribution width (RBC) [Ratio] 12.8 % Normal 11.6-14.6 [facility] Comment on above: Performed By: #### L 100.0100, L500.4050 #### [facility] [address] [place], [address] Hematocrit (Bld) [Volume fraction] 42.5 % Normal 37-47 [facility] Comment on above: Performed By: #### L 100.0100, L500.4050 #### [facility] [address] [place], [address] Hemoglobin (Bld) [Mass/Vol] 13.4 g/dL Normal 12.0-15.0 [facility] Comment on above: Performed By: #### L 100.0100, L500.4050 #### [facility] [address] [place], [address] IG% 0.300 Normal 0.0-0.9 [facility] Comment on above: Result Comment: IG% - Immature Granulocytes (promyelocytes, myelocytes and metamyelocytes) > 1% indicates that a LEFT SHIFT is Present. Performed By: #### L 100.0100, L500.4050 #### [facility] [address] [place], [address] Lymphocytes/100 WBC (Bld) 18.2 % Low 19-41 [facility] Comment on above: Performed By: #### L 100.0100, L500.4050 #### [facility] [address] [place], [address] MCH (RBC) [Entitic mass] 28.8 pg Normal 27.0-32.0 [facility] Comment on above: Performed By: #### L 100.0100, L500.4050 #### [facility] [address] [place], [address] MCHC (RBC) [Mass/Vol] 31.5 g/dL Low 32-36 [facility] Comment on above: Performed By: #### L 100.0100, L500.4050 #### [facility] [address] [place], [address] MCV (RBC) [Entitic vol] 91.2 fL Normal 81-99 [facility] Comment on above: Performed By: #### L 100.0100, L500.4050 #### [facility] [address] [place], [address] Monocytes/100 WBC (Bld) 9.2 % Normal 0-10 [facility] Comment on above: Performed By: #### L 100.0100, L500.4050 #### [facility] [address] [place], [address] Neutrophils/100 WBC (Bld) 68.9 % Normal 47-70 [facility] Comment on above: Performed By: #### L 100.0100, L500.4050 #### [facility] [address] [place], [address] Nucleated RBC (Bld) [#/Vol] 0 10*3/uL Normal 0-5 [facility] Comment on above: Performed By: #### L 100.0100, L500.4050 #### [facility] [address] [place], [address] Platelet mean volume (Bld) [Entitic vol] 10.7 fL Normal 6.2-12.0 [facility] Comment on above: Performed By: #### L 100.0100, L500.4050 #### [facility] [address] [place], [address] Platelets (Bld) [#/Vol] 358 10*3/uL Normal 150-450 [facility] Comment on above: Performed By: #### L 100.0100, L500.4050 #### [facility] [address] [place], [address] RBC (Bld) [#/Vol] 4.66 10*6/uL Normal 4.2-5.4 [facility] Comment on above: Performed By: #### L 100.0100, L500.4050 #### [facility] [address] [place], [address] RDW SD 42.3 fl Normal 35.1-43.9 [facility] Comment on above: Performed By: #### L 100.0100, L500.4050 #### [facility] [address] [place], [address] WBC (Bld) [#/Vol] 8.6 10*3/uL Normal 4.4-11.0 [facility] Comment on above: Performed By: #### L 100.0100, L500.4050 #### [facility] [address] [place], [address] Carbon dioxide, total [Moles /volume] in Central venous bloodOrdered By: Maria A Carranza on 11-27-2024 CO2 [Moles/Vol] 24.6 mmol/L 21.0-32.0 [facility] Chloride assayOrdered By: Adalid Carranza on 11-27-2024 Chloride [Moles/Vol] 101 mmol/L 98-108 [facility] Comprehensive Metabolic Prof ilon 11-27-2024 Albumin [Mass/Vol] 4.5 g/dL Normal 3.4-4.8 [facility] Comment on above: Performed By: #### L 100.0100, L500.4050 #### [facility] [address] [place], [address] Albumin/Globulin [Mass ratio] 1.7 {ratio} Normal 0.9-2.4 [facility] Comment on above: Performed By: #### L 100.0100, L500.4050 #### [facility] [address] [place], [address] ALK PHOS 162 U/L High 35-104 [facility] Comment on above: Performed By: #### L 100.0100, L500.4050 #### [facility] [address] [place], [address] ALT [Catalytic activity/Vol] 28 U/L Normal <=34 [facility] Comment on above: Performed By: #### L 100.0100, L500.4050 #### [facility] [address] [place], [address] AST [Catalytic activity/Vol] 25 U/L Normal <=31 [facility] Comment on above: Performed By: #### L 100.0100, L500.4050 #### [facility] [address] [place], [address] Bilirubin [Mass/Vol] 0.40 mg/dL Normal 0.00-1.30 [facility] Comment on above: Performed By: #### L 100.0100, L500.4050 #### [facility] [address] [place], [address] BUN/CRE 17.5 RATIO Normal 10-20 [facility] Comment on above: Performed By: #### L 100.0100, L500.4050 #### [facility] [address] [place], [address] Calcium [Mass/Vol] 10.0 mg/dL Normal 7.6-11.0 [facility] Comment on above: Performed By: #### L 100.0100, L500.4050 #### [facility] [address] [place], [address] Chloride [Moles/Vol] 101 mmol/L Normal 98-108 [facility] Comment on above: Performed By: #### L 100.0100, L500.4050 #### [facility] [address] [place], [address] CO2 [Moles/Vol] 24.6 mmol/L Normal 21.0-32.0 [facility] Comment on above: Performed By: #### L 100.0100, L500.4050 #### [facility] [address] [place], [address] Creatinine [Mass/Vol] 0.79 mg/dL Normal 0.70-1.20 [facility] Comment on above: Performed By: #### L 100.0100, L500.4050 #### [facility] [address] [place], [address] GAP 13 Normal 5-15 [facility] Comment on above: Performed By: #### L 100.0100, L500.4050 #### [facility] [address] [place], [address] GFR/1.73 sq M.predicted among non-blacks MDRD (S/P/Bld) [Vol rate/Area] 85 mL/min/{1.73_m2} Normal >60 [facility] Comment on above: Result Comment: mL/m in/1.73m2 CKD-EPI Creatinine Equation (2020) Performed By: #### L 100.0100, L500.4050 #### [facility] [address] [place], [address] Globulin (S) [Mass/Vol] 2.7 g/dL Normal 2.2-4.2 [facility] Comment on above: Performed By: #### L 100.0100, L500.4050 #### [facility] [address] [place], [address] Glucose [Mass/Vol] 92 mg/dL Normal 70-99 [facility] Comment on above: Performed By: #### L 100.0100, L500.4050 #### [facility] [address] [place], [address] Potassium [Moles/Vol] 4.3 mmol/L Normal 3.3-5.1 [facility] Comment on above: Performed By: #### L 100.0100, L500.4050 #### [facility] [address] [place], [address] Sodium [Moles/Vol] 139 mmol/L Normal 133-145 [facility] Comment on above: Performed By: #### L 100.0100, L500.4050 #### [facility] [address] [place], [address] T PROT 7.3 g/dL Normal 5.9-8.4 [facility] Comment on above: Performed By: #### L 100.0100, L500.4050 #### [facility] [address] [place], [address] Urea nitrogen [Mass/Vol] 14 mg/dL Normal 4-19 [facility] Comment on above: Performed By: #### L 100.0100, L500.4050 #### [facility] [address] [place], [address] Eosinophil percentageOrdered By: Maria A Carranza on 11-27-2024 Eosinophils/100 WBC (Bld) 2.7 % 0-5 [facility] Erythrocyte distribution wid th ratioOrdered By: Maria A Carranza on 11-27-2024 Erythrocyte distribution width (RBC) [Ratio] 12.8 % 11.6-14.6 [facility] Erythrocyte distribution wid th standard deviationOrdered By: Maria A Carranza on 11-27-2024 Erythrocyte distribution width (RBC) [Ratio] 42.3 fl 35.1-43.9 [facility] Glomerular filtration rate ( GFR) estimation/1.73 sq m using serum, plasma, or whole bOrdered By: Maria A Carranza on 11-27-2024 GFR/1.73 sq M.predicted among non-blacks MDRD (S/P/Bld) [Vol rate/Area] 85 mL/min/{1.73_m2} >60 [facility] Comment on above: mL/min/1.73m2 CKD-EP I Creatinine Equation (2020) Hematocrit Auto (Bld) [Volum e fraction]Ordered By: Maria A Carranza on 11-27-2024 Hematocrit (Bld) [Volume fraction] 42.5 % 37-47 [facility] Hemoglobin measurementOrdere d By: Maria A Carranza on 11-27-2024 Hemoglobin (Bld) [Mass/Vol] 13.4 g/dL 12.0-15.0 [facility] Immature granulocytes/100 WB C Auto (Bld)Ordered By: Maria A Carranza on 11-27-2024 Immature granulocytes/100 WBC (Bld) 0.300 % 0.0-0.9 [facility] Comment on above: IG% - Immature Granu locytes (promyelocytes, myelocytes and metamyelocytes) > 1% indicates that a LEFT SHIFT is Present. Laboratory - Chemistry and C hemistry - challengeOrdered By: Maria A Carranza on 11-27-2024 AST [Catalytic activity/Vol] 25 U/L <32 [facility] MCV (mean corpuscular volume ) determinationOrdered By: Maria A Carranza on 11-27-2024 MCV (RBC) [Entitic vol] 91.2 fL 81-99 [facility] Mean corpuscular hemoglobin (MCH) determinationOrdered By: Maria A Carranza on 11-27-2024 MCH (RBC) [Entitic mass] 28.8 pg 27.0-32.0 [facility] Mean corpuscular hemoglobin concentration (MCHC) determinationOrdered By: Maria A Carranza on 11-27-2024 MCHC (RBC) [Mass/Vol] 31.5 g/dL Low 32-36 [facility] Mean platelet volume determi nationOrdered By: Maria A Carranza on 11-27-2024 Platelet mean volume (Bld) [Entitic vol] 10.7 fL 6.2-12.0 [facility] Monocyte percentageOrdered B y: Maria A Carranza on 11-27-2024 Monocytes/100 WBC (Bld) 9.2 % 0-10 [facility] Neutrophil percentageOrdered By: Maria A Carranza on 11-27-2024 Neutrophils/100 WBC (Bld) 68.9 % 47-70 [facility] Nucleated red blood cell per centageOrdered By: Maria A Carranza on 11-27-2024 Nucleated RBC/100 WBC (Bld) [Ratio] 0 % 0-5 [facility] Platelet countOrdered By: Adalid Carranza on 11-27-2024 Platelets (Bld) [#/Vol] 358 10*3/uL 150-450 [facility] Potassium measurement (mass/ volume)Ordered By: Maria A Carranza on 11-27-2024 Potassium (Unsp spec) [Mass/Vol] 4.3 mmol/L 3.3-5.1 [facility] RBC Auto (Bld) [#/Vol]Ordere d By: Maria A Carranza on 11-27-2024 RBC (Bld) [#/Vol] 4.66 10*6/uL 4.2-5.4 [facility] Serum creatinine measurement (mass/volume)Ordered By: Maria A Carranza on 11-27-2024 Creatinine [Mass/Vol] 0.79 mg/dL 0.70-1.20 [facility] Serum globulin measurementOr dered By: Maria A Carranza on 11-27-2024 Globulin (S) [Mass/Vol] 2.7 g/dL 2.2-4.2 [facility] Serum glucose measurement (m ass/volume)Ordered By: Maria A Carranza on 11-27-2024 Glucose [Mass/Vol] 92 mg/dL 70-99 [facility] [facility] Serum or plasma alanine bennett otransferase (ALT) measurementOrdered By: Maria A Carranza on 11-27-2024 ALT [Catalytic activity/Vol] 28 U/L <35 [facility] Serum or plasma albumin kylah urement (mass/volume)Ordered By: Maria A Carranza on 11-27-2024 Albumin [Mass/Vol] 4.5 g/dL 3.4-4.8 [facility] Serum or plasma albumin/glob ulin mass ratioOrdered By: Maria A Carranza on 11-27-2024 Albumin/Globulin [Mass ratio] 1.7 {ratio} 0.9-2.4 [facility] Serum or plasma alkaline asmita sphatase measurementOrdered By: Maria A Carranza on 11-27-2024 ALP [Catalytic activity/Vol] 162 U/L High 35-104 [facility] Serum or plasma calcium kylah urement (mass/volume)Ordered By: Maria A Carranza on 11-27-2024 Calcium [Mass/Vol] 10.0 mg/dL 7.6-11.0 [facility] Serum or plasma urea nitroge n measurement (mass/volume)Ordered By: Maria A Carranza on 11-27-2024 Urea nitrogen [Mass/Vol] 14 mg/dL 4-19 [facility] Sodium levelOrdered By: Jing Carranza on 11-27-2024 Sodium [Moles/Vol] 139 mmol/L 133-145 [facility] Total proteinOrdered By: Jana Carranza on 11-27-2024 Protein [Mass/Vol] 7.3 g/dL 5.9-8.4 [facility] White blood cell (WBC) count Ordered By: Maria A Carranza on 11-27-2024 WBC (Bld) [#/Vol] 8.6 10*3/uL 4.4-11.0 [facility] Pulmonary Visit Reporton Pulmonary Visit Report [facility] Pulmonary Medicine [facility] [address] [place] [address] OFFICE VISIT Date of Service: 11/07/24 MR#: [id number] Acct: [id number] Name: FOZIA BREEN Rep #: [id number] : 1960 Provider: LIZANDRO Lew Age/Sex: 63/F Location: [facility] [place] Status: Signed Assessment and Plan Assessment and Plan (1) Adenocarcinoma of left lung: Status: Acute Plan: She completed a successful wedge resection in which the entirety of the adenocarcinoma was removed. She does not require chemotherapy or radiation. Plan will be to continue to monitor with serial imaging CT scan of the chest every 6 months for 2 years, and then annually after. First CT of the chest will be due March 2025. Follow-up in the office in April to discuss test results. (2) Stage 1 mild chronic obstructive pulmonary disease by Global Initiative for Chronic Obstructive Lung Disease classification: Status: Acute Comment: FEV1 75% Plan: Recently clarified. She is experiencing shortness of breath which may be related to the COPD. She was provided with a sample of Trelegy. She was given personal instruction on how to use the Ellipta device. She is to contact the office if this medication does not provide improvement or if she experiences any unwanted side effects. She is agreeable with this plan. (3) Status post pneumonectomy: Status: Acute Plan: She was reassured that shortness of breath on exertion is normal and expected as she acclimates to the reduced lung volume. Incision site is healing well. The patient does have some numbness, and I also reassured her that it will take up to 2 years to evaluate any permanent nerve sensations. The patient is conveying that she is pleased to have expectations of what normal or look like. (4) Nicotine abuse: Status: Chronic Plan: She continues complete smoking cessation since late August. However, patient is concerned over her desire to start smoking again. She is wondering if a refill of Chantix would be helpful. She is on multiple antidepressants and anxiolytics, I am hesitant to repeat Chantix. I suggested that she try to supplement the hand to mouth habit with wooden cinnamon sticks or suckers. The patient conveys understanding. 11 minutes spent [id number] discussing smoking cessation. Orders: Orders Chest without Contrast 03/09/25 C34.92 - Malignant neoplasm of unspecified part of left bronchus or lung Medications: New cfwospbkwmj-lgmfoilqw-pmyx nter 100-62.5-25 mcg (Trelegy Ellipta) administer at approximately the same time(s) each day 1 inh inhalation QDAY 60 ea 3RF C34.92 - Malignant neoplasm of unspecified part of left bronchus or lung, J44.9 - Chronic obstructive pulmonary disease, unspecified Plan Details Additional Comments: This note was generated with [employer] software. It may contain incorrect words, spelling, and punctuation that were not noted in checking the note before signing. Follow Up: 04/08/25 HPI 4 wk fu Chief Complaint: Follow-up after partial lobectomy HPI Comments Details: This patient presents to the office today for follow-up after partial lobectomy of the left lung. She is ambulatory and currently on room air. She has not recently been seen in the ED or urgent care for any respiratory illness. She has not required any antibiotics or prednisone for any breathing problems. Office note from cardiothoracic surgery [facility] surgical services reviewed. The patient underwent lower lobectomy wedge resection on September 20, 2024. Tissue sample was consistent with invasive moderately differentiated adenocarcinoma. It is reported that it was resected in its entirety. The patient does not require chemotherapy or radiation. They recommend radiographic surveillance with CT scans every 6 months for 2 years and then annually thereafter. She reports shortness of breath on exertion. She has noticed that it is worse than she experienced preoperatively. She is exerted easily. She has an occasional dry cough. She denies any sputum production or hemoptysis. She denies any wheezing, chest tightness, chest pain or palpitations. She has not had any fever, chills or body aches. She is experiencing numbness to the incision site. Test results personally reviewed with the patient: Walking oximetry performed on August 30, 2024. The patient was able to ambulate total of 937 feet over the course of 6 minutes. She did not become hypoxic and does not currently require supplemental oxygen. Pulmonary function test completed on August 31, 2024. Impression is irreversible mild large airway obstructive ventilatory defect associated with air trapping. FEV1 75% of predicted. Intake Vital Signs 08/30/24 11:32 11/07/24 08:33 Height 5 ft 1 in 5 ft 1 in Weight: 189 lb BMI 35.6 BP 137/87 H Blood Pressure Loca (more content not included)... Normal [facility] 36on 10-11-2024 36 Name of caller: Lee Ann Contact phone number: [phone] Relationship to Patient: Employer Provider: Dr Perez Practice: [facility] Chief Complaint/Reason for Call: Company needs verification that patient had 09/20/24 procedure -- they faxed over a surgery confirmation form and are asking for it to be faxed [phone] -- not received. Best time of day caller can be reached: AM Patient advised that office/PCP has 24-48 business hours to return their call: No Normal [facility] Office Visiton 10-09-2024 Follow-up visit [id number] Suzette Breeni 1960 F Date Provider Department Center 10/09/2024 [id number] GONZALES [facility] None Family History Problem Relation Age of Onset Hypertension Mother Diabetes Mother Asthma Mother Ulcerative colitis Mother Arthritis Mother Coronary artery disease Father Heart attack Father Hypertension Father Heart disease Father Coronary artery disease Brother Heart disease Brother Hypertension Brother Heart attack Brother Family Status - Relation Status Age at Mother Father Brother Level of Service:[id number] [place] POSTOP FOLLOW UP VISIT RELATED TO ORIGINAL PX Reason for Visit and Comments: Post-op [483] Normal [facility] Progress Noteon 10-09-2024 Progress Note [facility] Medical Group: [facility] [address] [facility] [address] Dept: [phone] Dept Loc: [phone] Visit type: Established patient - in person Surgery/Procedure: s/p diagnostic left thoracoscopy, conversion to open thoracotomy with wedge resection of the left lower lobe lung lesion w/frozen section; left lower lobectomy with mediastinal lymph node sampling (Levels 8, 10, 12, 5) with Dr. 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 -Acute Post-Operative Pain Tx plan: OTC as needed -No weight Restriction -Follow up with PCP -Follow up with Pulm in [place] -Plan follow up [address] Patient to call with any questions or concerns. They verbalized understanding Subjective HPI: 63 y.o. female who presents today for post op follow up. -Surgical path finalized - discussed with surgeon and then patient. -Will plan CT chest non con every 6 months for 2 years initially then yearly after. -CT ordered placed today -Patient wants to follow up with Pulm in [place] for surveillance. Agreeable for first to be with us. Will attempt to coordinate with pulm office. -Medications reviewed: compliant with medications -Pain is controlled. She is currently taking: OTC as needed -Incisions: healing appropriately, well approximated, no s/s of infection, suture removed from prior CT site. Slight swelling around incision - likely seroma per patient decreasing in size; continue to monitor -There is no weight restriction from CTS standpoint. ROM exercises discussed. -Other complaints: no other needs at this time. Family present during exam. Objective Vitals: 10/09/24 0951 BP: (!) 140/93 Pulse: 87 Wt Readings from Last 3 Encounters: 10/09/24 183 lb (83 kg) 09/25/24 182 lb 12.8 oz (82.9 kg) 09/13/24 178 lb (80.7 kg) Physical Exam Cardiovascular: Rate and Rhythm: Normal rate and regular rhythm. Heart sounds: Normal heart sounds. No murmur heard. No friction rub. Pulmonary: Effort: Pulmonary effort is normal. Breath sounds: Examination of the left-lower field reveals decreased breath sounds. Decreased breath sounds present. Skin: General: Skin is warm and dry. Capillary Refill: Capillary refill takes less than 2 seconds. Findings: Bruising and ecchymosis present. Comments: Surgical Incisions: well approximate; clean dry with no drainage noted. Surrounding skin no redness, warmth, or signs of infection noted. Neurological: Mental Status: She is alert. Psychiatric: Behavior: Behavior is cooperative. Labs/Imaging/Testing: reviewed EMR, see A&P for pertinent diagnostic results related to office visit Final Diagnosis A. LUNG, LEFT LOWER LOBE, WEDGE RESECTION: - INVASIVE MODERATELY-DIFFERENTIATED ADENOCARCINOMA, SOLID-PATTERN. SEE SYNOPTIC REPORT. B. LUNG, LEFT LOWER LOBE, LOBECTOMY: - LUNG PARENCHYMA WITH EMPHYSEMATOUS CHANGES - NEGATIVE FOR MALIGNANCY C. LYMPH NODE, LEVEL 5, BIOPSY: - ONE LYMPH NODE NEGATIVE FOR METASTATIC CARCINOMA (0/1) D. LYMPH NODE, LEVEL 4, BIOPSY: - ONE LYMPH NODE NEGATIVE FOR METASTATIC CARCINOMA (0/1) E. LYMPH NODE, LEVEL 8, BIOPSY: - ONE LYMPH NODE NEGATIVE FOR METASTATIC CARCINOMA (0/1) F. LYMPH NODE, LEVEL 10, BIOPSY: - ONE LYMPH NODE NEGATIVE FOR METASTATIC CARCINOMA (0/1) at 2239 EDT Synoptic Checklist LUNG 8th Edition - Protocol posted: 01/27/2022LUNG - A SPECIMEN Procedure Wedge resection Specimen Laterality Left TUMOR Tumor Focality Single focus Tumor Site Lower lobe of lung Tumor Size Total Tumor Size (size of entire tumor) Greatest Dimension (Centimeters): 1.2 cm Histologic Type Invasive solid adenocarcinoma Histologic Grade G2, moderately differentiated Visceral Pleura Invasion Not identified Direct Invasion of Adjacent Structures Not applicable (no adjacent structures present) Treatment Effect No known presurgical therapy Lymphovascular Invasion Venous invasion present MARGINS Margin Status for Invasive Carcinoma All margins negative for invasive carcinoma Closest Margin(s) to Invasive Carcinoma Parenchymal (more content not included)... Normal [facility] 36on 10-02-2024 36 Pt s/p LLL lobectomy on 09/20/[address] Perez. Pt called in with concern for edema surrounding surgical site. Pt states the edema is only around the incision, denies any redness, drainage or fevers. Per pt, area is not firm to the touch and has no crepitus. Pt scheduled for post op appt on 10/09/24, pt was offered a sooner appointment but she declined, stating she would not have transportation available. Advised pt that her description of the site sounds like a seroma, and to keep monitoring the area for any new signs/symptoms, return call to the office if any new symptoms/concerns arise. Pt verbalized understanding. Normal [facility] Progress Noteon 09-28-2024 Progress Note This patient has a s tage I (T1 N0) moderately differentiated adenocarcinoma that was resected in its entirety. Chemotherapy and radiation will not be necessary. Radiographic surveillance will be necessary with CT scans every 6 months for 2 years and then annually thereafter. This could be coordinated with the pulmonary nodule clinic and the patient's city secretary. Normal [facility] 30on 09-25-2024 30 Home O2 eval done, p atient did drop sats to [address] Perez visited patient ok for discharge. Normal [facility] [id number] 09-25-2024 [id number] Discharged with home O2. No distress noted. Normal [facility] XR CHEST 1 VIEWon 09-25-2024 XR CHEST 1 VIEW Patient Name: FOZIA BREEN : 1960 Exam Date/Time: 09/25/2024 07:42 Procedure: XR CHEST 1 VIEW Ordering Provider: PEREZ ERIC Reason For Exam: eval for PTX after ct removed AP CHEST X-RAY CLINICAL INDICATION: eval for PTX after ct removed Diagnosis Description: Solitary pulmonary noduleSolitary pulmonary nodule TECHNIQUE: AP portable x-ray of the chest. COMPARISON: 09/24/2024 FINDINGS: Limitations: None. Support devices: Left chest tubes were removed. Heart/Mediastinum: Stable Lungs: Low lung volumes. Left lateral pleural thickening without evidence of a pneumothorax. Stable bibasilar atelectasis. Bones: Stable IMPRESSION: No pneumothorax identified following left chest tube removal. Report Dictated on Electronically Signed By: Reji Valverde MD Electronically Signed Date/Time: 09/25/2024 8:43 AM EDT [facility] XR Chest Single viewon 09-25 No pneumothorax identified following left chest tube removal. Report Dictated on Electronically Signed By: Reji Valverde MD Electronically Signed Date/Time: 09/25/2024 8:43 AM EDT [facility] Patient Name: FOZIA BREEN : 1960 Exam Date/Time: 09/25/2024 07:42 Procedure: XR CHEST 1 VIEW Ordering Provider: PEREZ ERIC Reason For Exam: eval for PTX after ct removed AP CHEST X-RAY CLINICAL INDICATION: eval for PTX after ct removed Diagnosis Description: Solitary pulmonary noduleSolitary pulmonary nodule TECHNIQUE: AP portable x-ray of the chest. COMPARISON: 09/24/2024 FINDINGS: Limitations: None. Support devices: Left chest tubes were removed. Heart/Mediastinum: Stable Lungs: Low lung volumes. Left lateral pleural thickening without evidence of a pneumothorax. Stable bibasilar atelectasis. Bones: Stable [facility] Reji Valverde M D - 09/25/2024 Patient Name: [facility] 1960 [id number] Exam Date/Time: 09/25/2024 07:42 Procedure: XR CHEST 1 VIEW Ordering Provider: PEREZ ERIC Reason For Exam: eval for PTX after ct removed AP CHEST X-RAY CLINICAL INDICATION: eval for PTX after ct removed Diagnosis Description: Solitary pulmonary noduleSolitary pulmonary nodule TECHNIQUE: AP portable x-ray of the chest. COMPARISON: 09/24/2024 FINDINGS: Limitations: None. Support devices: Left chest tubes were removed. Heart/Mediastinum: Stable Lungs: Low lung volumes. Left lateral pleural thickening without evidence of a pneumothorax. Stable bibasilar atelectasis. Bones: Stable IMPRESSION: No pneumothorax identified following left chest tube removal. Report Dictated on Electronically Signed By: Reji Valverde MD Electronically Signed Date/Time: 09/25/2024 8:43 AM EDT [facility] Study observation (narrative) [facility] XR Chest Single viewOrdered By: Reji Valverde on 09-25-2024 [facility] Work Phone: 30on 09-24-2024 30 Problem: Pain - Adul t Goal: Verbalizes/displays adequate comfort level or baseline comfort level Outcome: Progressing Problem: Safety - Adult Goal: Free from fall injury Outcome: Progressing Problem: Discharge Planning Goal: Discharge to home or other facility with appropriate resources Outcome: Progressing Problem: Chronic Conditions and Co-morbidities Goal: Patient's chronic conditions and co-morbidity symptoms are monitored and maintained or improved Outcome: Progressing Problem: Pain Goal: My pain/discomfort is manageable Outcome: Progressing Problem: Safety Goal: Patient will be injury free during hospitalization Outcome: Progressing Problem: Daily Care Goal: Daily care needs are met Outcome: Progressing Problem: Psychosocial Needs Goal: Demonstrates ability to cope with hospitalization/illness Outcome: Progressing Goal: Collaborate with me, my family, and caregiver to identify my specific goals Outcome: Progressing Problem: Discharge Barriers Goal: My discharge needs are met Outcome: Progressing Normal [facility] 30 Chest tubes removed per Dr. Aparicio. Tolerated well. Normal [facility] BASIC METABOLIC PANELon 05- Anion gap [Moles/Vol] 9 mmol/L Normal 3-13 [facility] Comment on above: Performed By: #### L AB15 ####Telephone Solicitor: MAL ARVIZU ([phone])[facility] ([facility])[address] [place] [address] Calcium [Mass/Vol] 8.9 mg/dL Normal 8.8-10.0 [facility] Comment on above: Performed By: #### L AB15 ####Telephone Solicitor: MAL ARVIZU ([phone])[facility])[address] [place] [address] Chloride [Moles/Vol] 99 mmol/L Normal 98-107 [facility] Comment on above: Performed By: #### L AB15 ####Telephone Solicitor: MAL ARVIZU ([phone])[facility] ([facility])[address] [place] [address] CO2 [Moles/Vol] 28 mmol/L Normal 23-31 [facility] Comment on above: Performed By: #### L AB15 ####Telephone Solicitor: MAL ARVIZU ([phone])[facility])[address] [place] [address] Creatinine [Mass/Vol] 0.68 mg/dL Normal 0.57-1.11 [facility] Comment on above: Performed By: #### L AB15 ####Telephone Solicitor: MAL ARVIZU ([phone])[facility])[address] [place] [address] GLOMERULAR FILTRATION RATE ML/MIN/1.73 SQ M.PREDICTED >90.0 Normal >60.0 [facility] Comment on above: Result Comment: Calc ulation based on the Chronic Kidney Disease Epidemiology Collaboration (CKD-EPI) equation refit without adjustment for race Performed By: #### L AB15 ####Telephone Solicitor: MAL [phone])[facility] ([facility])[address] [place] [address] Glucose [Mass/Vol] 121 mg/dL High 82-115 [facility] Comment on above: Performed By: #### L AB15 ####Telephone Solicitor: MAL ARVIZU ([phone])[facility])[address] [place] [address] Potassium [Moles/Vol] 4.1 mmol/L Normal 3.5-5.1 [facility] Comment on above: Result Comment: [facility] potassium values may be up to 0.5 mmol/L lower than serum values. Performed By: #### L AB15 ####Telephone Solicitor: MAL ARVIZU ([phone])[facility] ([facility])[address] [place] [address] Sodium [Moles/Vol] 136 mmol/L Normal 136-145 [facility] Comment on above: Performed By: #### L AB15 ####Telephone Solicitor: MAL ARVIZU ([phone])[facility] ([facility])[address] [place] [address] Urea nitrogen [Mass/Vol] 13 mg/dL Normal 9-23 [facility] Comment on above: Performed By: #### L AB15 ####Telephone Solicitor: MAL ARVIZU ([phone])[facility])[address] [place] [address] Basic metabolic 1998 panelon 09-24-2024 Anion gap [Moles/Vol] 9 mmol/L 3 - 13 mmol/L [facility] Calcium [Mass/Vol] 8.9 mg/dL 8.8 - 10. 0 mg/dL [facility] Chloride [Moles/Vol] 99 mmol/L 98 - 10 7 mmol/L [facility] CO2 [Moles/Vol] 28 mmol/L 23 - 31 mmol/L [facility] Creatinine [Mass/Vol] 0.68 mg/dL 0.57 - 1.11 mg/dL [facility] GFR/1.73 sq M.predicted (S/P/Bld) [Vol rate/Area] - PINF [facility] Comment on above: Calculation based on the Chronic Kidney Disease Epidemiology Collaboration (CKD-EPI) equation refit without adjustment for race Glucose [Mass/Vol] 121 mg/dL High 82 - 115 mg/dL [facility] Interpretation and review of laboratory results Abnormal [facility] Potassium [Moles/Vol] 4.1 mmol/L 3.5 - 5.1 mmol/L [facility] Comment on above: Plasma potassium roxy ues may be up to 0.5 mmol/L lower than serum values. Sodium [Moles/Vol] 136 mmol/L 136 - 145 mmol/L [facility] Urea nitrogen [Mass/Vol] 13 mg/dL 9 - 23 mg/dL [facility] CBC (HEMOGRAM)on 09-24-2024 Erythrocyte distribution width (RBC) [Ratio] 13.4 % Normal 11.5-15.0 [facility] Comment on above: Performed By: #### L [id number] ####Telephone Solicitor: MAL ARVIZU ([phone])[address] Hematocrit (Bld) [Volume fraction] 37.5 % Normal 35.0-47.0 [facility] Comment on above: Performed By: #### L AB294 ####Telephone Solicitor: MAL ARVIZU ([phone])[address] Hemoglobin (Bld) [Mass/Vol] 12.2 g/dL Normal 11.7-16.0 [facility] Comment on above: Performed By: #### L AB294 ####Telephone Solicitor: MAL ARVIZU ([phone])[address] MCH (RBC) [Entitic mass] 30.1 pg Normal 26.0-34.0 [facility] Comment on above: Performed By: #### L AB294 ####Telephone Solicitor: MAL ARVIZU ([phone])[address] MCHC 32.5 % Normal 30.5-36.0 [facility] Comment on above: Performed By: #### L AB294 ####Telephone Solicitor: MAL ARVIZU ([phone])[facility] ([facility])[address] [place] [address] MCV (RBC) [Entitic vol] 92.6 fL Normal 77.0-99.0 [facility] Comment on above: Performed By: #### L AB294 ####Telephone Solicitor: MAL ARVIZU ([phone])[facility])[address] [place] [address] Platelet mean volume (Bld) [Entitic vol] 11.0 fL Normal 9.0-12.7 [facility] Comment on above: Performed By: #### L AB294 ####Telephone Solicitor: MAL ARVIZU ([phone])[facility])[address] [place] [address] Platelets (Bld) [#/Vol] 277 10*3/uL Normal 140-440 [facility] Comment on above: Performed By: #### L AB294 ####Telephone Solicitor: MAL ARVIZU ([phone])[facility])[address] [place] [address] RBC (Bld) [#/Vol] 4.05 10*6/uL Normal 3.80-5.20 [facility] Comment on above: Performed By: #### L AB294 ####Telephone Solicitor: MAL ARVIZU ([phone])[facility])[address] [place] [address] WBC (Bld) [#/Vol] 8.0 10*3/uL Normal 3.6-10.7 [facility] Comment on above: Performed By: #### L AB294 ####Telephone Solicitor: MAL ARVIZU ([phone])[facility])[address] [place] [address] CBC panel Auto (Bld)on 09-24 Erythrocyte distribution width (RBC) [Ratio] 13.4 % 11.5 - 15.0 % [facility] Hematocrit (Bld) [Volume fraction] 37.5 % 35.0 - 47.0 % [facility] Hemoglobin (Bld) [Mass/Vol] 12.2 g/dL 11.7 - 16.0 g/dL [facility] Interpretation and review of laboratory results Normal [facility] MCH (RBC) [Entitic mass] 30.1 pg 26.0 - 34.0 pg [facility] MCHC (RBC) [Mass/Vol] 32.5 % 30.5 - 36.0 % [facility] MCV (RBC) [Entitic vol] 92.6 fL 77.0 - 99.0 fL [facility] Platelet mean volume (Bld) [Entitic vol] 11 fL 9.0 - 12.7 fL [facility] Platelets (Bld) [#/Vol] 277 10*3/uL 140 - 440 10*3/uL [facility] RBC (Bld) [#/Vol] 4.05 10*6/uL 3.80 - 5.2 0 10*6/uL [facility] WBC (Bld) [#/Vol] 8 10*3/uL 3.6 - 10.7 10*3/uL [facility] Progress Noteon 09-24-2024 Progress Note Left chest tubes rem rema. Occlusive dressing applied. Patient tolerated well. Normal [facility] Progress Note PHYSICAL THERAPY [facility] Treatment Note Name/MRN: Fozia Breen ([id number]) Date of : 1960 Age: 63 y.o. [facility] Discharge Recommendation: Home with assist PRN Equipment Needed: No Prior Level of Function Prior Level of ADL Function: Independent Prior Level of Mobility: Independent; Device: None Prior Level of Transfers: Independent Assessment Patient remains limited by dyspnea on exertion. However she demonstrates improving mobility. Patient performed sit <> stand transfers with modif indep. Patient ambulated up to 150 feet using FWW with supervision and and up to 150 feet without a device with supervision. O2 assessed during ambulation with and without oxygen (per RN); on RA noted O2 sats down to 84% but improving to 88% with rest break. With 2L O2 sats were 97-90%, RN informed. Recommend home with assist PRN. Subjective RN cleared patient for PT eval, asking to ambulate patient without O2. Patient up in recliner, pleasant and agreeable to therapy. Pain: L ribs Medical Precautions: No active isolations Proper PPE donned/doffed in accordance with facility standards. Fall Risk: Domingo Fall Risk Score: 35 (Medium Risk) Precautions/Restrictions: Lines/Drains/Airways: chest tubes x2, 2L O2 Overall Cognitive Status: WNL Overall Orientation Status: Oriented x4 Family/Caregiver Present: child(sarah) Objective Transfers/Mobility Sit to stand: Modified Independent Stand to sit: Modified Independent From recliner x2 reps, cues for hand placement Device(s) used: None and Front wheeled walker Ambulation Ambulation 1 Assistive device(s) used: Front wheeled walker Assist level: Supervision Distance (ft): 80 x2, 150 Quality of gait: No LOB, slow kirsten, mild dyspnea. O2 assessed during ambulation with and without oxygen (per RN); on RA noted O2 sats down to 84% but improving to 88% with rest break. With 2L O2 sats were 97-90%, RN informed. Ambulation 2 Assistive device(s) used: None Assist level: Supervision Distance (ft): 150 Quality of gait: No LOB, wide LONNIE, slow kirsten, postural sway, O2 sats 87% on 2L, up to 90% with seated rest and pursed-lip breathing. Exercises Other exercises Other exercises?: Yes Other exercises 1: IS x10 reps, 500-1000ml, cues for improved technique Plan Continue acute PT per plan of care. Safety/Education Safety Safety Devices in place: call light within reach, left in chair, nurse notified, and no alarms engaged upon entry Restraints: No Education Education Given To: patient Education Provided: PT Goals, Gait Training, Plan of Care, Discharge Recommendations, and Breathing Techniques Education Method: Verbal Barriers to Learning: None Education Outcome: Verbalized Understanding Outcome Measures AM-PAC AM-PAC Inpatient Mobility Raw Score (No Stairs) : 19 JH-HLM JH-HLM Score: Walked 250 ft or more (i.e. several laps on unit) Goals Patient Stated Goal: To go home soon Encounter Problems Encounter Problems (Active) Cardiac Patient will be independent with P&C exercises. (Not Addressed) Start: 09/21/24 Expected End: 10/19/24 Patient will be independent with managing secretions and home walking program. (Progressing) Start: 09/21/24 Expected End: 10/19/24 Mobility Patient will ambulate 350 feet with modified independence and least restrictive device in order to improve safety and independence with mobility. (Progressing) Start: 09/21/24 Expected End: 10/19/24 Patient will ascend and descend 1 stairs with one railing and modified independence in order to safely negotiate home. (Not Addressed) Start: 09/21/24 Expected End: 10/19/24 Pain - Adult Transfers Patient will perform bed mobility with modified independence in order to improve independence and prepare for out of bed mobility. (Not Addressed) Start: 09/21/24 Expected End: 10/19/24 Patient will complete functional transfer with least restrictive device with modified independence in order to prepare for ambulation. (Progressing) Start: 09/21/24 Expected End: 10/19/24 Therapy Time Individual Co-treatment Time In 1432 Time Out 1456 Minutes 24 Timed Code Treatment Minutes: 24 Minutes (gait x2) Cydney Billings, PT [facility] Progress Note Saw patient [address] removal. Had trace air leak with cough. Plan CT clamp trial [id number], CXR 1630. Can remove CT this pm if no PTX on CXR. Moises Pacheco MD PGY5, General Surgery Pager #[phone] [facility] XR CHEST 1 VIEWon 09-24-2024 XR CHEST 1 VIEW Patient Name: FOZIA BREEN : 1960 Exam Date/Time: 09/24/2024 16:17 Procedure: XR CHEST 1 VIEW Ordering Provider: PEREZ ERIC Reason For Exam: eval for PTX after 4hr clamp trial HISTORY: Evaluate for pneumothorax after left pleural tubes clamping trial Frontal view of the chest at 1618 hours compared to previous study at 0612 hours today. There are two left pleural tubes with no evidence of pneumothorax. Atelectatic appearing changes both lung bases with hypoinflation lungs Prior left chest surgery with staple line in hilar region Report Dictated on Electronically Signed By: Jose E Urban MD Electronically Signed Date/Time: 09/24/2024 4:42 PM EDT [facility] XR CHEST 1 VIEW Patient Name: FOZIA BREEN : 1960 Exam Date/Time: 09/24/2024 06:12 Procedure: XR CHEST 1 VIEW Ordering Provider: PEREZ ERIC Reason For Exam: Chest tube placement CHEST - PORTABLE: CLINICAL INDICATION: Chest tube placement. TECHNIQUE: Portable AP COMPARISON: One day ago FINDINGS: Tubes, lines and devices: Left chest tubes again noted Heart/Mediastinum: Unchanged Lungs/Pleura: Dense opacity in the right lower hemithorax with elongated configuration is likely atelectasis. This also likely atelectasis at the left lung base. There is no other consolidation. The costophrenic angles are obscured. IMPRESSION: Left chest tubes. Opacity at the lung bases greater on the left, likely atelectasis Report Dictated on Electronically Signed By: Jani Finnegan MD Electronically Signed Date/Time: 09/24/2024 6:43 AM EDT [facility] XR Chest Single viewon 09-24 Patient Name: FOZIA BREEN : 1960 Exam Date/Time: 09/24/2024 16:17 Procedure: XR CHEST 1 VIEW Ordering Provider: PEREZ ERIC Reason For Exam: eval for PTX after 4hr clamp trial HISTORY: Evaluate for pneumothorax after left pleural tubes clamping trial Frontal view of the chest at 1618 hours compared to previous study at 0612 hours today. There are two left pleural tubes with no evidence of pneumothorax. Atelectatic appearing changes both lung bases with hypoinflation lungs Prior left chest surgery with staple line in hilar region Report Dictated on Electronically Signed By: Jose E Urban MD Electronically Signed Date/Time: 09/24/2024 4:42 PM EDT [facility] Jose E Urban MD - 09/24/2024 Patient Name: FOZIA BREEN : 1960 Exam Date/Time: 09/24/2024 16:17 Procedure: XR CHEST 1 VIEW Ordering Provider: PEREZ ERIC Reason For Exam: eval for PTX after 4hr clamp trial HISTORY: Evaluate for pneumothorax after left pleural tubes clamping trial Frontal view of the chest at 1618 hours compared to previous study at 0612 hours today. There are two left pleural tubes with no evidence of pneumothorax. Atelectatic appearing changes both lung bases with hypoinflation lungs Prior left chest surgery with staple line in hilar region Report Dictated on Electronically Signed By: Jose E Urban MD Electronically Signed Date/Time: 09/24/2024 4:42 PM EDT [facility] [employer] Radiology Study observation (narrative) [facility] [employer] Left chest tubes. Op acity at the lung bases greater on the left, likely atelectasis Report Dictated on Electronically Signed By: Jani Finnegan MD Electronically Signed Date/Time: 09/24/2024 6:43 AM EDT [facility] [employer] Patient Name: FOZIA BREEN : 1960 Exam Date/Time: 09/24/2024 06:12 Procedure: XR CHEST 1 VIEW Ordering Provider: PEREZ ERIC Reason For Exam: Chest tube placement CHEST - PORTABLE: CLINICAL INDICATION: Chest tube placement. TECHNIQUE: Portable AP COMPARISON: One day ago FINDINGS: Tubes, lines and devices: Left chest tubes again noted Heart/Mediastinum: Unchanged Lungs/Pleura: Dense opacity in the right lower hemithorax with elongated configuration is likely atelectasis. This also likely atelectasis at the left lung base. There is no other consolidation. The costophrenic angles are obscured. [facility] Jani Finnegan MD - 09/24/2024 Patient Name: FOZIA BREEN : 1960 Exam Date/Time: 09/24/2024 06:12 Procedure: XR CHEST 1 VIEW Ordering Provider: PEREZ ERIC Reason For Exam: Chest tube placement CHEST - PORTABLE: CLINICAL INDICATION: Chest tube placement. TECHNIQUE: Portable AP COMPARISON: One day ago FINDINGS: Tubes, lines and devices: Left chest tubes again noted Heart/Mediastinum: Unchanged Lungs/Pleura: Dense opacity in the right lower hemithorax with elongated configuration is likely atelectasis. This also likely atelectasis at the left lung base. There is no other consolidation. The costophrenic angles are obscured. IMPRESSION: Left chest tubes. Opacity at the lung bases greater on the left, likely atelectasis Report Dictated on Electronically Signed By: Jani Finnegan MD Electronically Signed Date/Time: 09/24/2024 6:43 AM EDT [facility] [employer] [facility] [employer] Radiology Study observation (narrative) [employer] XR Chest Single viewOrdered By: Jose E Urban on 09-24-2024 [employer] Work Phone: 30on 09-23-2024 30 Problem: Pain - Adul t Goal: Verbalizes/displays adequate comfort level or baseline comfort level Outcome: Progressing Problem: Safety - Adult Goal: Free from fall injury Outcome: Progressing Problem: Discharge Planning Goal: Discharge to home or other facility with appropriate resources Outcome: Progressing Problem: Chronic Conditions and Co-morbidities Goal: Patient's chronic conditions and co-morbidity symptoms are monitored and maintained or improved Outcome: Progressing Problem: Pain Goal: My pain/discomfort is manageable Outcome: Progressing Problem: Safety Goal: Patient will be injury free during hospitalization Outcome: Progressing Goal: I will remain free of falls Outcome: Progressing Problem: Daily Care Goal: Daily care needs are met Outcome: Progressing Problem: Psychosocial Needs Goal: Demonstrates ability to cope with hospitalization/illness Outcome: Progressing Goal: Collaborate with me, my family, and caregiver to identify my specific goals Outcome: Progressing Problem: Discharge Barriers Goal: My discharge needs are met Outcome: Progressing Normal [facility] BASIC METABOLIC PANELon 09-06 Anion gap [Moles/Vol] 10 mmol/L Normal 3-13 [facility] Comment on above: Performed By: #### L [id number] #### Telephone Solicitor: MAL ARVIZU ([phone]) [facility] ([facility]) [address] [place] [address] Calcium [Mass/Vol] 9.1 mg/dL Normal 8.8-10.0 [facility] Comment on above: Performed By: #### L AB15 #### Telephone Solicitor: MAL ARVIZU ([phone]) [facility] ([facility]) [address] [place] [address] Chloride [Moles/Vol] 99 mmol/L Normal 98-107 [facility] Comment on above: Performed By: #### L AB15 #### Telephone Solicitor: MAL ARVIZU ([phone]) [facility] ([facility]) [address] [place] [address] [place] CO2 [Moles/Vol] 27 mmol/L Normal 23-31 [facility] Comment on above: Performed By: #### L AB15 #### Telephone Solicitor: MAL ARVIZU ([phone]) [facility]) [address] [place] [address] Creatinine [Mass/Vol] 0.67 mg/dL Normal 0.57-1.11 [facility] Comment on above: Performed By: #### L AB15 #### Telephone Solicitor: MAL ARVIZU ([phone]) [facility] ([facility]) [address] [place] [address] GLOMERULAR FILTRATION RATE ML/MIN/1.73 SQ M.PREDICTED >90.0 Normal >60.0 [facility] Comment on above: Result Comment: Calc ulation based on the Chronic Kidney Disease Epidemiology Collaboration (CKD-EPI) equation refit without adjustment for race Performed By: #### L AB15 #### Telephone Solicitor: MAL ARVIZU ([phone]) [facility] ([facility]) [address] [place] [address] [place] Glucose [Mass/Vol] 107 mg/dL Normal 82-115 [facility] Comment on above: Performed By: #### L AB15 #### Telephone Solicitor: MAL ARVIZU ([phone]) [facility]) [address] [place] [address] Potassium [Moles/Vol] 4.5 mmol/L Normal 3.5-5.1 [facility] Comment on above: Result Comment: [facility] potassium values may be up to 0.5 mmol/L lower than serum values. Performed By: #### L AB15 #### Telephone Solicitor: MAL ARVIZU ([phone]) [facility] ([facility]) [address] [place] [address] Sodium [Moles/Vol] 136 mmol/L Normal 136-145 [facility] Comment on above: Performed By: #### L AB15 #### Telephone Solicitor: MAL ARVIZU ([phone]) [facility] ([facility]) [address] [place] [address] Urea nitrogen [Mass/Vol] 15 mg/dL Normal 9-23 [facility] Comment on above: Performed By: #### L AB15 #### Telephone Solicitor: MAL ARVIZU ([phone]) [facility] ([facility]) [address] [place] [address] Basic metabolic 1998 panelon 09-23-2024 Anion gap [Moles/Vol] 10 mmol/L 3 - 13 mmol/L [facility] Calcium [Mass/Vol] 9.1 mg/dL 8.8 - 10. 0 mg/dL [facility] Chloride [Moles/Vol] 99 mmol/L 98 - 10 7 mmol/L [facility] CO2 [Moles/Vol] 27 mmol/L 23 - 31 mmol/L [facility] Creatinine [Mass/Vol] 0.67 mg/dL 0.57 - 1.11 mg/dL [facility] GFR/1.73 sq M.predicted (S/P/Bld) [Vol rate/Area] - PINF [facility] Comment on above: Calculation based on the Chronic Kidney Disease Epidemiology Collaboration (CKD-EPI) equation refit without adjustment for race Glucose [Mass/Vol] 107 mg/dL 82 - 115 mg/dL [facility] Interpretation and review of laboratory results Normal [facility] Potassium [Moles/Vol] 4.5 mmol/L 3.5 - 5.1 mmol/L [facility] Comment on above: Plasma potassium roxy ues may be up to 0.5 mmol/L lower than serum values. Sodium [Moles/Vol] 136 mmol/L 136 - 145 mmol/L [facility] Urea nitrogen [Mass/Vol] 15 mg/dL 9 - 23 mg/dL [facility] CBC (HEMOGRAM)on 09-23-2024 Erythrocyte distribution width (RBC) [Ratio] 13.5 % Normal 11.5-15.0 [facility] Comment on above: Performed By: #### L [id number] ####Telephone Solicitor: MAL ARVIZU ([phone])[facility])[address] [place] [address] Hematocrit (Bld) [Volume fraction] 39.4 % Normal 35.0-47.0 [facility] Comment on above: Performed By: #### L [id number] ####Telephone Solicitor: MAL ARVIZU ([phone])[facility])[address] [place] [address] Hemoglobin (Bld) [Mass/Vol] 12.6 g/dL Normal 11.7-16.0 [facility] Comment on above: Performed By: #### L [id number] ####Telephone Solicitor: MAL ARVIZU ([phone])[facility])[address] [place] [address] MCH (RBC) [Entitic mass] 29.9 pg Normal 26.0-34.0 [facility] Comment on above: Performed By: #### L [id number] ####Telephone Solicitor: MAL ARVIZU ([phone])[facility])[address] [place] [address] MCHC 32.0 % Normal 30.5-36.0 [facility] Comment on above: Performed By: #### L [id number] ####Telephone Solicitor: MAL ARVIZU ([phone])[facility])[address] [place] [address] MCV (RBC) [Entitic vol] 93.4 fL Normal 77.0-99.0 [facility] Comment on above: Performed By: #### L [id number] ####Telephone Solicitor: MAL ARVIZU ([phone])[facility])[address] [place] [address] Platelet mean volume (Bld) [Entitic vol] 11.0 fL Normal 9.0-12.7 [facility] Comment on above: Performed By: #### L [id number] ####Telephone Solicitor: MAL ARVIZU ([phone])[facility] ([facility])[address] [place] [address] Platelets (Bld) [#/Vol] 259 10*3/uL Normal 140-440 [facility] Comment on above: Performed By: #### L [id number] ####Telephone Solicitor: MAL ARVIZU ([phone])[facility] ([facility])[address] [place] [address] RBC (Bld) [#/Vol] 4.22 10*6/uL Normal 3.80-5.20 [facility] Comment on above: Performed By: #### L [id number] ####Telephone Solicitor: MAL ARVIZU ([phone])[facility] ([facility])[address] [place] [address] WBC (Bld) [#/Vol] 11.7 10*3/uL High 3.6-10.7 [facility] Comment on above: Performed By: #### L [id number] ####Telephone Solicitor: MAL ARVIZU ([phone])[facility])[address] [place] [address] CBC panel Auto (Bld)on 09-23 Erythrocyte distribution width (RBC) [Ratio] 13.5 % 11.5 - 15.0 % [facility] Hematocrit (Bld) [Volume fraction] 39.4 % 35.0 - 47.0 % [facility] Hemoglobin (Bld) [Mass/Vol] 12.6 g/dL 11.7 - 16.0 g/dL [facility] Interpretation and review of laboratory results Abnormal [facility] MCH (RBC) [Entitic mass] 29.9 pg 26.0 - 34.0 pg [facility] MCHC (RBC) [Mass/Vol] 32 % 30.5 - 36.0 % [facility] MCV (RBC) [Entitic vol] 93.4 fL 77.0 - 99.0 fL [facility] Platelet mean volume (Bld) [Entitic vol] 11 fL 9.0 - 12.7 fL [facility] Platelets (Bld) [#/Vol] 259 10*3/uL 140 - 440 10*3/uL [facility] RBC (Bld) [#/Vol] 4.22 10*6/uL 3.80 - 5.2 0 10*6/uL [facility] WBC (Bld) [#/Vol] 11.7 10*3/uL High 3.6 - 10.7 10*3/uL [facility] Progress Noteon 09-23-2024 Progress Note PHYSICAL THERAPY [facility] Treatment Note Name/MRN: Fozia Breen ([id number]) Date of : 1960 Age: 63 y.o. Room/Bed: T1-123/T1-123 A Discharge Recommendation: Home with assist PRN Equipment Needed: No (has walker, transport chair, shower chair, BSC) Prior Level of Function Prior Level of ADL Function: Independent Prior Level of Mobility: Independent; Device: None Prior Level of Transfers: Independent Assessment Patient is progressing well towards goals. Able to perform transfers with supervision and ambulates lap around unit with nezzi and SBA. O2 noted to drop to mid 80s with ambulation while on 2L, requires 1-2 min rest to recover. SBA for stair training, good technique and no LOB. Performed P+C exercises for ROM and pain relief, patient reports decrease to 3/10 pain after performing. Anticipate patient will safely discharge home with assist PRN. Subjective Seated in recliner upon arrival, agreeable to PT. Cleared for therapy by RN. Pain: 0-10 pain scale: 5/10 Location: L side Medical Precautions: No active isolations Proper PPE donned/doffed in accordance with facility standards. Fall Risk: Domingo Fall Risk Score: 35 (Medium Risk) Precautions/Restrictions: Lines/Drains/Airways: tele, continuous pulse ox, chest tubes x2 Overall Cognitive Status: WNL Overall Orientation Status: Oriented x4 Family/Caregiver Present: none Objective Transfers/Mobility Sit to stand: Supervision Stand to sit: Supervision Good technique, no instability Device(s) used: Nezzie Ambulation Ambulation 1 Assistive device(s) used: Nezzie Assist level: SBA Distance (ft): 350ft Quality of gait: reciprocal stepping, narrow LONNIE, slow kirsten. Monitored O2 during ambulation, patient reports having muscle spasm in chest in which O2 decreased to 85% while on 2L; recovered with short standing rest. Balance During Session: Posture: good Sitting - Static: Independent Sitting - Dynamic: Independent Standing - Static: SBA Standing - Dynamic: SBA Stairs Stairs 1 Assistive device(s) used: None Assist level: SBA # of steps: 4 Rails: left Additional factors: reciprocal going up, reciprocal going down Exercises Exercises Comments: P&C 3 exercises 1-9 x10 reps each; provided booklet, cues for technique and ROM. Encouraged to perform 2x daily. Reports improvement in pain from 09/15 to 07/16 after performing. Plan Continue acute PT per plan of care. Safety/Education Safety Safety Devices in place: All fall risk precautions in place, call light within reach, and left in chair Restraints: No Education Exercises, gait, stairs Outcome Measures AM-PAC AM-PAC Inpatient Mobility Raw Score : 20 AM-PAC Inpatient Mobility Raw Score (No Stairs) : 17 JH-HLM JH-HLM Score: Walked 250 ft or more (i.e. several laps on unit) Goals Patient Stated Goal: To go home this weekend Encounter Problems Encounter Problems (Active) Cardiac Patient will be independent with P&C exercises. Start: 09/21/24 Expected End: 10/19/24 Patient will be independent with managing secretions and home walking program. Start: 09/21/24 Expected End: 10/19/24 Mobility Patient will ambulate 350 feet with modified independence and least restrictive device in order to improve safety and independence with mobility. (Progressing) Start: 09/21/24 Expected End: 10/19/24 Patient will ascend and descend 1 stairs with one railing and modified independence in order to safely negotiate home. (Progressing) Start: 09/21/24 Expected End: 10/19/24 Pain - Adult Transfers Patient will perform bed mobility with modified independence in order to improve independence and prepare for out of bed mobility. (Not Addressed) Start: 09/21/24 Expected End: 10/19/24 Patient will complete functional transfer with least restrictive device with modified independence in order to prepare for ambulation. (Progressing) Start: 09/21/24 Expected End: 10/19/24 Therapy Time Individual Co-treatment Time In 0845 Time Out 0916 Minutes 31 Timed Code Treatment Minutes: 31 Minutes (Blue, TP) Nga Noriega PTA [facility] XR CHEST 1 VIEWon 09-23-2024 XR CHEST 1 VIEW Patient Name: FOZIA BREEN : 1960 Exam Date/Time: 09/23/2024 05:19 Procedure: XR CHEST 1 VIEW Ordering Provider: PEREZ, , LEE ANN Reason For Exam: Chest tube placement CHEST PORTABLE CLINICAL INDICATION: Chest tube placement TECHNIQUE: Portable chest x-ray(s). COMPARISON: 1 day prior. FINDINGS: Left thoracostomy tubes x2 again noted. Cardiac silhouette stable. Low lung volumes and bibasilar opacities without significant interval change. No apparent pneumothorax. IMPRESSION: 1. No significant interval change. Report Dictated on Electronically Signed By: Jamal Dumont MD Electronically Signed Date/Time: 09/23/2024 5:33 AM EDT [facility] XR Chest Single viewon 09-23 1. No significant interval change. Report Dictated on Electronically Signed By: Jamal Dumont MD Electronically Signed Date/Time: 09/23/2024 5:33 AM EDT [facility] Patient Name: FOZIA BREEN : 1960 Exam Date/Time: 09/23/2024 05:19 Procedure: XR CHEST 1 VIEW Ordering Provider: PEREZ, , LEE ANN Reason For Exam: Chest tube placement CHEST PORTABLE CLINICAL INDICATION: Chest tube placement TECHNIQUE: Portable chest x-ray(s). COMPARISON: 1 day prior. FINDINGS: Left thoracostomy tubes x2 again noted. Cardiac silhouette stable. Low lung volumes and bibasilar opacities without significant interval change. No apparent pneumothorax. [facility] Jamal Dumont MD - 09/23/2024 Patient Name: FOZAI BREEN : 1960 Exam Date/Time: 09/23/2024 05:19 Procedure: XR CHEST 1 VIEW Ordering Provider: PEREZ, LEE ANN Reason For Exam: Chest tube placement CHEST PORTABLE CLINICAL INDICATION: Chest tube placement TECHNIQUE: Portable chest x-ray(s). COMPARISON: 1 day prior. FINDINGS: Left thoracostomy tubes x2 again noted. Cardiac silhouette stable. Low lung volumes and bibasilar opacities without significant interval change. No apparent pneumothorax. IMPRESSION: 1. No significant interval change. Report Dictated on Electronically Signed By: Jamal Dumont MD Electronically Signed Date/Time: 09/23/2024 5:33 AM EDT [facility] Radiology Study observation (narrative) [facility] BASIC METABOLIC PANELon 05- Anion gap [Moles/Vol] 12 mmol/L Normal 3-13 [facility] Comment on above: Performed By: #### L AB15 ####Telephone Solicitor: MAL ARVIZU ([phone])[address] Calcium [Mass/Vol] 9.2 mg/dL Normal 8.8-10.0 [facility] Comment on above: Performed By: #### L AB15 ####Telephone Solicitor: MAL ARVIZU ([phone])[facility])[address] [place] [address] Chloride [Moles/Vol] 99 mmol/L Normal 98-107 [facility] Comment on above: Performed By: #### L AB15 ####Telephone Solicitor: MAL ARVIZU ([phone])[facility])[address] [place] [address] CO2 [Moles/Vol] 24 mmol/L Normal 23-31 [facility] Comment on above: Performed By: #### L AB15 ####Telephone Solicitor: MAL [phone])[facility])[address] [place] [address] Creatinine [Mass/Vol] 0.75 mg/dL Normal 0.57-1.11 [facility] Comment on above: Performed By: #### L AB15 ####Telephone Solicitor: MAL [phone])[facility])[address] [place] [address] GLOMERULAR FILTRATION RATE ML/MIN/1.73 SQ M.PREDICTED >90.0 Normal >60.0 [facility] Comment on above: Result Comment: Calc ulation based on the Chronic Kidney Disease Epidemiology Collaboration (CKD-EPI) equation refit without adjustment for race Performed By: #### L AB15 ####Telephone Solicitor: MAL ARVIZU ([phone])[facility])[address] [place] [address] Glucose [Mass/Vol] 121 mg/dL High 82-115 [facility] Comment on above: Performed By: #### L AB15 ####Telephone Solicitor: MAL ARVIZU ([phone])[facility])[address] [place] [address] Potassium [Moles/Vol] 4.7 mmol/L Normal 3.5-5.1 [facility] Comment on above: Result Comment: [facility] potassium values may be up to 0.5 mmol/L lower than serum values. Performed By: #### L AB15 ####Telephone Solicitor: MAL ARVIZU ([phone])[facility])[address] [place] [address] Sodium [Moles/Vol] 135 mmol/L Low 136-145 [facility] Comment on above: Performed By: #### L AB15 ####Telephone Solicitor: MAL ARVIZU ([phone])[address] Urea nitrogen [Mass/Vol] 20 mg/dL Normal 9-23 [facility] Comment on above: Performed By: #### L AB15 ####Telephone Solicitor: MAL ARVIZU ([phone])[address] Basic metabolic 1998 panelon 09-22-2024 Anion gap [Moles/Vol] 12 mmol/L 3 - 13 mmol/L [facility] Calcium [Mass/Vol] 9.2 mg/dL 8.8 - 10. 0 mg/dL [facility] Chloride [Moles/Vol] 99 mmol/L 98 - 10 7 mmol/L [facility] CO2 [Moles/Vol] 24 mmol/L 23 - 31 mmol/L [facility] Creatinine [Mass/Vol] 0.75 mg/dL 0.57 - 1.11 mg/dL [facility] GFR/1.73 sq M.predicted (S/P/Bld) [Vol rate/Area] - PINF [facility] Comment on above: Calculation based on the Chronic Kidney Disease Epidemiology Collaboration (CKD-EPI) equation refit without adjustment for race Glucose [Mass/Vol] 121 mg/dL High 82 - 115 mg/dL [facility] Interpretation and review of laboratory results Abnormal [facility] Potassium [Moles/Vol] 4.7 mmol/L 3.5 - 5.1 mmol/L [facility] Comment on above: Plasma potassium roxy ues may be up to 0.5 mmol/L lower than serum values. Sodium [Moles/Vol] 135 mmol/L Low 136 - 145 mmol/L [facility] Urea nitrogen [Mass/Vol] 20 mg/dL 9 - 23 mg/dL [facility] CBC (HEMOGRAM)on 09-22-2024 Erythrocyte distribution width (RBC) [Ratio] 13.4 % Normal 11.5-15.0 [facility] Comment on above: Performed By: #### L [id number] ####Telephone Solicitor: MAL [phone])[address] Hematocrit (Bld) [Volume fraction] 42.8 % Normal 35.0-47.0 [facility] Comment on above: Performed By: #### L [id number] ####Telephone Solicitor: MAL ARVIZU ([phone])[facility])[address] [place] [address] Hemoglobin (Bld) [Mass/Vol] 13.4 g/dL Normal 11.7-16.0 [facility] Comment on above: Performed By: #### L [id number] ####Telephone Solicitor: MAL ARVIZU ([phone])[facility])[address] [place] [address] MCH (RBC) [Entitic mass] 29.1 pg Normal 26.0-34.0 [facility] Comment on above: Performed By: #### L [id number] ####Telephone Solicitor: MAL ARVIZU ([phone])[facility])[address] [place] [address] MCHC 31.3 % Normal 30.5-36.0 [facility] Comment on above: Performed By: #### L [id number] ####Telephone Solicitor: MAL ARVIZU ([phone])[facility] ([facility])[address] [place] [address] MCV (RBC) [Entitic vol] 92.8 fL Normal 77.0-99.0 [facility] Comment on above: Performed By: #### L [id number] ####Telephone Solicitor: MAL ARVIZU ([phone])[facility])[address] [place] [address] Platelet mean volume (Bld) [Entitic vol] 10.7 fL Normal 9.0-12.7 [facility] Comment on above: Performed By: #### L [id number] ####Telephone Solicitor: MAL ARVIZU ([phone])[facility])[address] [place] [address] Platelets (Bld) [#/Vol] 304 10*3/uL Normal 140-440 [facility] Comment on above: Performed By: #### L [id number] ####Telephone Solicitor: MAL ARVIZU ([phone])[facility])[address] [place] [address] RBC (Bld) [#/Vol] 4.61 10*6/uL Normal 3.80-5.20 [facility] Comment on above: Performed By: #### L [id number] ####Telephone Solicitor: MAL ARVIZU ([phone])[facility])[address] [place] [address] WBC (Bld) [#/Vol] 15.4 10*3/uL High 3.6-10.7 [facility] Comment on above: Performed By: #### L [id number] ####Telephone Solicitor: MAL ARVIZU ([phone])[facility] ([address] CBC panel Auto (Bld)Ordered By: Alberto Rosales on 09-22-2024 Erythrocyte distribution width (RBC) [Ratio] 13.4 % 11.5 - 15.0 % [facility] Hematocrit (Bld) [Volume fraction] 42.8 % 35.0 - 47.0 % [facility] Hemoglobin (Bld) [Mass/Vol] 13.4 g/dL 11.7 - 16.0 g/dL [facility] Interpretation and review of laboratory results Abnormal [facility] MCH (RBC) [Entitic mass] 29.1 pg 26.0 - 34.0 pg [facility] MCHC (RBC) [Mass/Vol] 31.3 % 30.5 - 36.0 % [facility] MCV (RBC) [Entitic vol] 92.8 fL 77.0 - 99.0 fL [facility] Platelet mean volume (Bld) [Entitic vol] 10.7 fL 9.0 - 12.7 fL [facility] Platelets (Bld) [#/Vol] 304 10*3/uL 140 - 440 10*3/uL [facility] RBC (Bld) [#/Vol] 4.61 10*6/uL 3.80 - 5.2 0 10*6/uL [facility] WBC (Bld) [#/Vol] 15.4 10*3/uL High 3.6 - 10.7 10*3/uL [facility] Progress Noteon 09-22-2024 Progress Note PAGING: The Acute Pa in Service providers are available exclusively via [employer]. APS does not utilize [employer]. 09/22/2024 Discharge Recommendations: [place] 1-2 tablets q8h prn for mod / severe pain Robaxin 750mg PO q8h prn for muscle spasms Stool softeners Pain Management Adjuvants: 0700 --> 0700 09/21/24 Scheduled APAP 650mg Gabapentin Lidocaine patches PRN Hydromorphone IV Methocarbamol Oxycodone [place] 8 tablets Assessment / Pain Management Plan: Recommendations made, will sign off at this time. Thank you for inviting us to participate in the care of this patient. Acute Postsurgical Chest pain Multimodal pain regimen: BLOCK: Serratus Anterior 09/20/24 Pt requested [place] post operatively 09/21/24 Does not want IV pain medications, does not feel she does well on them Continue Hydromorphone 0.25 mg - 0.5 mg IVP q4h prn moderate to severe breakthrough pain. Please utilize oral medications first. Continue Naloxone 0.4 mg IVP prn opioid reversal. PRN if respiratory rate is less than 6/min and patient is difficult to arouse then notify physician STAT. Mix 9 mL of sodium chloride 0.9% with 0.4 mg (1 mL) of naloxone (NARCAN) in 10 mL syringe. (Note: dilution is 0.04 mg/mL) Give 0.08 mg (2 mL of special dilution), slow IV push, repeat up to 0.4 mg (10 mL) or until patient is responsive to physical stimulation and respiratory rate is equal to or greater than 6 breaths/min. Continue to observe, if no response within 3 minutes of administration of 0.4 mg (10 mL) total, repeat dose (0.4 mg as administered previously). 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 Patient's Medications have been reviewed. PMH reviewed below Opioid Use, Acute Reviewed and educated patient on responsible use of opioids: after surgery, it can be normal to experience pain. If it is mild and you can move about without great difficulty or discomfort, you may not need to take pain medication. It is very important to take your pain medication only as needed. Avoiding excessive or unnecessary medication, will enable you to progress your activity each day to improve your muscle tone and movement, deep breathing, digestion, circulation and your body's ability to heal itself. OARRS reviewed for past two years. (No opiates RX filled) Constipation At risk for opioid induced constipation Patient currently receiving opioids for pain management necessitating a bowel regimen. Recommend initiating scheduled Sennakot-S 8.6/50mg, 1 tablet PO BID. Would also recommend Milk of Magnesia 400mg/5ml, administer 30mL by mouth daily PRN. Plan discussed with patient who appears to understand and agrees. Chief Complaint: lung surgery HPI: We have been asked to see this 63 y.o. female for postoperative pain management s/p L thoracotomy and LLLobectomy for NSCLS 09/20/24 Reviewed chest xr 09/22/24 MIKE, no pages. On arrival, pt sitting in bedside chair. Eating cheerios and apple juice, constipated. Asks for senna. Ordered. Chest pain at chest tube site is controlled with [place] per her request. Does not like IV pain meds and the mood changes they cause. Also had a headache from them. Denies f/c, cp, sob, n/v/d Pain Location: chest Aggravating Factors: Moving Sedation score: 1: Awake and alert Pain Severity: mild Pain Quality: sharp Duration continuous Alleviating Factors: Rest/Pain medications REVIEW OF SYSTEMS: Pertinent positives as noted in the HPI. All other systems reviewed and negative. PHYSICAL EXAM: Vitals: BP 125/97 Pulse 110 Temp 36.3 ?C (97.3 ?F) (Temporal) Resp (!) 26 Wt 88 kg (194 lb 0.1 oz) SpO2 98% BMI 36.66 kg/m? BMI Classification: Obese (BMI 30.0-39.9) General appearance: No apparent distress, appears stated age and cooperative. HEENT: Normal cephalic, atraumatic without obvious deformity. Pupils equal, round, and reactive to light. Extra ocular muscles intact. Conjunctivae/corneas clear. Neck: No jugular venous distention. Trachea midline. Cardiovascular: Peripheral pulses 2+ and equal in all extremities Respiratory: Unlabored respiratory effort. 2L NC O2 Musculoskeletal: No clubbing, cyanosis or edema bilaterally. Full ROM of all extremities. Skin: Skin color, texture, turgor normal. Surgical incision c/d/I , CT in tact with mod output Neurologic: Neurovascularly intact without any focal sensory/motor deficits. Cranial nerves: II-XII intact, grossly non-focal. Psychiatric: Alert and orientedx3, thought content appropriate, normal insight ? Labs: Lab Results Component Value Date WBC 15.4 (H) 09/22/2024 HGB 13.4 09/22/2024 HCT 42.8 09/22/2024 MCV 92.8 09/22/2024 PLT 304 09/22/2024 Lab Result (more content not included)... Normal [facility] Progress Note Nutrition rescreen completed. Chart reviewed. Patient to be monitored and followed by the diet prosthetics lab technician. Normal [facility] XR CHEST 1 VIEWon 09-22-2024 XR CHEST 1 VIEW [facility] 1960 [id number] Exam Date/Time: 09/22/2024 05:16 Procedure: XR CHEST 1 VIEW Ordering Provider: PEREZ, , LEE ANN Reason For Exam: Chest tube placement CHEST - PORTABLE: CLINICAL INDICATION: Chest tube placement. TECHNIQUE: Portable AP COMPARISON: One day ago FINDINGS: Tubes, lines and devices: Two left chest tubes Heart/Mediastinum: Unchanged Lungs/Pleura: Ill-defined opacity at right lung base, likely atelectasis without change. No pneumothorax. Costophrenic angles are sharp. IMPRESSION: No change Report Dictated on Workstation: [employer] Electronically Signed By: Jani Finnegan MD Electronically Signed Date/Time: 09/22/2024 5:44 AM EDT Normal [facility] XR Chest Single viewon 09-22 No change Report Dictated on Workstation: [employer] Electronically Signed By: Jani Finnegan MD Electronically Signed Date/Time: 09/22/2024 5:44 AM EDT [facility] [place] [employer] Patient Name: FOZIA [facility] 1960 [id number] Exam Date/Time: 09/22/2024 05:16 Procedure: XR CHEST 1 VIEW Ordering Provider: PEREZ, , LEE ANN Reason For Exam: Chest tube placement CHEST - PORTABLE: CLINICAL INDICATION: Chest tube placement. TECHNIQUE: Portable AP COMPARISON: One day ago FINDINGS: Tubes, lines and devices: Two left chest tubes Heart/Mediastinum: Unchanged Lungs/Pleura: Ill-defined opacity at right lung base, likely atelectasis without change. No pneumothorax. Costophrenic angles are sharp. [facility] Jani Finnegan MD - 09/22/2024 Patient Name: FOZIA BREEN [facility] 1960 [id number] Exam Date/Time: 09/22/2024 05:16 Procedure: XR CHEST 1 VIEW Ordering Provider: PEREZ ERIC Reason For Exam: Chest tube placement CHEST - PORTABLE: CLINICAL INDICATION: Chest tube placement. TECHNIQUE: Portable AP COMPARISON: One day ago FINDINGS: Tubes, lines and devices: Two left chest tubes Heart/Mediastinum: Unchanged Lungs/Pleura: Ill-defined opacity at right lung base, likely atelectasis without change. No pneumothorax. Costophrenic angles are sharp. IMPRESSION: No change Report Dictated on Electronically Signed By: Jani Finnegan MD Electronically Signed Date/Time: 09/22/2024 5:44 AM EDT [facility] Radiology Study observation (narrative) [facility] XR Chest Single viewOrdered By: Jani Finnegan on 09-22-2024 [facility] [employer] Work Phone: BASIC METABOLIC PANELon 09-06 Anion gap [Moles/Vol] 11 mmol/L Normal 3-13 [facility] Comment on above: Performed By: #### L AB15 ####Telephone Solicitor: MAL ARVIZU ([phone])[facility] ([facility])[address] [place] [address] Calcium [Mass/Vol] 8.9 mg/dL Normal 8.8-10.0 [facility] Comment on above: Performed By: #### L AB15 ####Telephone Solicitor: MAL ARVIZU ([phone])[facility] ([facility] [place] [address] [place] Chloride [Moles/Vol] 101 mmol/L Normal 98-107 [facility] Comment on above: Performed By: #### L AB15 ####Telephone Solicitor: MAL ARVIZU ([phone])[facility] [place] [address] [place] CO2 [Moles/Vol] 21 mmol/L Low 23-31 [facility] Comment on above: Performed By: #### L AB15 ####Telephone Solicitor: MAL ARVIZU ([phone])[facility])[address] [place] [address] Creatinine [Mass/Vol] 0.77 mg/dL Normal 0.57-1.11 [facility] Comment on above: Performed By: #### L AB15 ####Telephone Solicitor: MAL ARVIZU ([phone])[facility])[address] [place] [address] GLOMERULAR FILTRATION RATE ML/MIN/1.73 SQ M.PREDICTED 87.9 mL/min/1.73m*2 Normal >60.0 [facility] Comment on above: Result Comment: Calc ulation based on the Chronic Kidney Disease Epidemiology Collaboration (CKD-EPI) equation refit without adjustment for race Performed By: #### L AB15 ####Telephone Solicitor: MAL ARVIZU ([phone])[facility])[address] [place] [address] Glucose [Mass/Vol] 159 mg/dL High 82-115 [facility] Comment on above: Performed By: #### L AB15 ####Telephone Solicitor: MAL ARVIZU ([phone])[facility])[address] [place] [address] Potassium [Moles/Vol] 4.5 mmol/L Normal 3.5-5.1 [facility] Comment on above: Result Comment: [facility] potassium values may be up to 0.5 mmol/L lower than serum values. Performed By: #### L AB15 ####Telephone Solicitor: MAL ARVIZU ([phone])[facility] ([facility])[address] [place] [address] [place] Sodium [Moles/Vol] 133 mmol/L Low 136-145 [facility] Comment on above: Performed By: #### L AB15 ####Telephone Solicitor: MAL ARVIZU ([phone])[facility] ([facility])[address] [place] [address] Urea nitrogen [Mass/Vol] 17 mg/dL Normal 9-23 [facility] Comment on above: Performed By: #### L AB15 ####Telephone Solicitor: MAL ARVIZU ([phone])[facility] ([facility])[address] [place] [address] Basic metabolic 1998 panelon 09-21-2024 Anion gap [Moles/Vol] 11 mmol/L 3 - 13 mmol/L [facility] Calcium [Mass/Vol] 8.9 mg/dL 8.8 - 10. 0 mg/dL [facility] Chloride [Moles/Vol] 101 mmol/L 98 - 10 7 mmol/L [facility] CO2 [Moles/Vol] 21 mmol/L Low 23 - 31 mmol/L [facility] Creatinine [Mass/Vol] 0.77 mg/dL 0.57 - 1.11 mg/dL [facility] GFR/1.73 sq M.predicted (S/P/Bld) [Vol rate/Area] 87.9 mL/min - PINF [facility] Comment on above: Calculation based on the Chronic Kidney Disease Epidemiology Collaboration (CKD-EPI) equation refit without adjustment for race Glucose [Mass/Vol] 159 mg/dL High 82 - 115 mg/dL [facility] Interpretation and review of laboratory results Abnormal [facility] Potassium [Moles/Vol] 4.5 mmol/L 3.5 - 5.1 mmol/L [facility] Comment on above: Plasma potassium roxy ues may be up to 0.5 mmol/L lower than serum values. Sodium [Moles/Vol] 133 mmol/L Low 136 - 145 mmol/L [facility] Urea nitrogen [Mass/Vol] 17 mg/dL 9 - 23 mg/dL [facility] CBC (HEMOGRAM)on 09-21-2024 Erythrocyte distribution width (RBC) [Ratio] 13.3 % Normal 11.5-15.0 [facility] Comment on above: Performed By: #### L [id number] ####Telephone Solicitor: MAL ARVIZU ([phone])[facility] ([facility])[address] [place] [address] Hematocrit (Bld) [Volume fraction] 38.9 % Normal 35.0-47.0 [facility] Comment on above: Performed By: #### L [id number] ####Telephone Solicitor: MAL ARVIZU ([phone])[facility] ([facility])[address] [place] [address] Hemoglobin (Bld) [Mass/Vol] 12.8 g/dL Normal 11.7-16.0 [facility] Comment on above: Performed By: #### L [id number] ####Telephone Solicitor: MAL ARVIZU ([phone])[facility])[address] [place] [address] MCH (RBC) [Entitic mass] 30.1 pg Normal 26.0-34.0 [facility] Comment on above: Performed By: #### L [id number] ####Telephone Solicitor: MAL ARVIZU ([phone])[facility])[address] [place] [address] MCHC 32.9 % Normal 30.5-36.0 [facility] Comment on above: Performed By: #### L [id number] ####Telephone Solicitor: MAL ARVIZU ([phone])[facility] ([facility])[address] [place] [address] MCV (RBC) [Entitic vol] 91.5 fL Normal 77.0-99.0 [facility] Comment on above: Performed By: #### L [id number] ####Telephone Solicitor: MAL ARVIZU ([phone])[facility])[address] [place] [address] Platelet mean volume (Bld) [Entitic vol] 10.8 fL Normal 9.0-12.7 [facility] Comment on above: Performed By: #### L [id number] ####Telephone Solicitor: MAL ARVIZU ([phone])[facility])[address] [place] [address] Platelets (Bld) [#/Vol] 284 10*3/uL Normal 140-440 [facility] Comment on above: Performed By: #### L [id number] ####Telephone Solicitor: MAL ARVIZU ([phone])[facility])[address] [place] [address] RBC (Bld) [#/Vol] 4.25 10*6/uL Normal 3.80-5.20 [facility] Comment on above: Performed By: #### L [id number] ####Telephone Solicitor: MAL ARVIZU ([phone])[facility] ([facility])[address] [place] [address] WBC (Bld) [#/Vol] 18.6 10*3/uL High 3.6-10.7 [facility] Comment on above: Performed By: #### L [id number] ####Telephone Solicitor: MAL ARVIZU ([phone])[facility] ([facility])[address] [place] [address] CBC panel Auto (Bld)on 09-21 Erythrocyte distribution width (RBC) [Ratio] 13.3 % 11.5 - 15.0 % [facility] Hematocrit (Bld) [Volume fraction] 38.9 % 35.0 - 47.0 % [facility] Hemoglobin (Bld) [Mass/Vol] 12.8 g/dL 11.7 - 16.0 g/dL [facility] Interpretation and review of laboratory results Abnormal [facility] MCH (RBC) [Entitic mass] 30.1 pg 26.0 - 34.0 pg [facility] MCHC (RBC) [Mass/Vol] 32.9 % 30.5 - 36.0 % [facility] MCV (RBC) [Entitic vol] 91.5 fL 77.0 - 99.0 fL [facility] Platelet mean volume (Bld) [Entitic vol] 10.8 fL 9.0 - 12.7 fL [facility] Platelets (Bld) [#/Vol] 284 10*3/uL 140 - 440 10*3/uL [facility] RBC (Bld) [#/Vol] 4.25 10*6/uL 3.80 - 5.2 0 10*6/uL [facility] WBC (Bld) [#/Vol] 18.6 10*3/uL High 3.6 - 10.7 10*3/uL [facility] Consulton 09-21-2024 Consult PAGING: The Acute Pa in Service providers are available exclusively via [employer]. APS does not utilize pagers. 09/21/2024 Lab Results Component Value Date CREATININE 0.77 09/21/2024 Discharge Recommendations: Pending Pain Management Adjuvants: 0700 --> 0700 09/20/2024 Scheduled APAP 2,950 mg PRN Hydromorphone IV 1.8 mg Assessment / Pain Management Plan: Will follow. Acute Postsurgical Chest pain Multimodal pain regimen: BLOCK: : Serratus Anterior Discontinue SEALS ENGRAVER Order PO [place] 1-2 tabs Q 4 hours PRN for moderate/severe breakthrough pain Continue Hydromorphone 0.25 mg - 0.5 mg IVP q4h prn moderate to severe breakthrough pain. Please utilize oral medications first. Continue Naloxone 0.4 mg IVP prn opioid reversal. PRN if respiratory rate is less than 6/min and patient is difficult to arouse then notify physician STAT. Mix 9 mL of sodium chloride 0.9% with 0.4 mg (1 mL) of naloxone (NARCAN) in 10 mL syringe. (Note: dilution is 0.04 mg/mL) Give 0.08 mg (2 mL of special dilution), slow IV push, repeat up to 0.4 mg (10 mL) or until patient is responsive to physical stimulation and respiratory rate is equal to or greater than 6 breaths/min. Continue to observe, if no response within 3 minutes of administration of 0.4 mg (10 mL) total, repeat dose (0.4 mg as administered previously). Solitary pulmonary nodule Pt is s/p L thoracotomy and LLLobectomy for NSCLS See #1 CKD Monitor CR Constipation At risk for opioid induced constipation Patient currently receiving opioids for pain management necessitating a bowel regimen. Recommend initiating scheduled Sennakot-S 8.6/50mg, 1 tablet PO BID. Would also recommend Milk of Magnesia 400mg/5ml, administer 30mL by mouth daily PRN. Opioid Use, Acute Reviewed and educated patient on responsible use of opioids: after surgery, it can be normal to experience pain. If it is mild and you can move about without great difficulty or discomfort, you may not need to take pain medication. It is very important to take your pain medication only as needed. Avoiding excessive or unnecessary medication, will enable you to progress your activity each day to improve your muscle tone and movement, deep breathing, digestion, circulation and your body's ability to heal itself. OARRS reviewed for past two years. (No opiates RX filled) [x] Patient's OARRS report (PDMP) have been reviewed. Pain Management: n/a No medications 2024 Plan discussed with patient who appears to understand and agrees. Subjective: Chief Complaint: Acute Postsurgical Chest pain We have been asked to see this 63 y.o. female for acute post operative pain management s/p L thoracotomy and LLLobectomy for NSCLS Reviewed Chest X ray 09/20 MIKE, no pages. On arrival, pt sitting in bedside chair. Pt's family at bedside Pt appears well, comfortable. States she does not like to take narcotics if possible, requesting SEALS ENGRAVER be discontinued Ordered PO [place] per patient request States she ambulated in the thakkar this AM without difficulty, eager to be discharged home Tolerating diet, denies n/v. Patient educated on pain regimen, aware that PO [place] and IV hydromorphone are PRN and patient must ask for these medications when needed. Educated patient to utilize oral pain medications as first line and reserve IV pain medications for severe breakthrough pain. Realistic pain control discussed with patient: Not all pain will be taken away, but pain should be tolerable/manageable with current regimen. Pt instructed to have staff page APS if pain becomes uncontrolled when utilizing present regimen. Pt agreeable, denies further questions. PMH reviewed below Pain Location: chest Aggravating Factors: Moving Sedation score: 1: Awake and alert Pain Severity: moderate Pain Quality: tender Alleviating Factors: Rest/Pain medications The patient's medical history and physical assessment, medications, allergies, patient's current medical condition, imaging, and labs were reviewed as part of this consultation. [x] Patient's Medications have been reviewed. Review of Systems Constitutional: Negative for chills and fever. HENT: Negative for trouble swallowing. Eyes: Negative for visual disturbance. Respiratory: Negative for shortness of breath. Cardiovascular: Positive for chest pain (Chest tube site). Gastrointestinal: Negative for abdominal pain, nausea and vomiting. Musculoskeletal: Negative for arthralgias. Skin: Positive for wound (surgical). Neurological: Negative for dizziness and headaches. Psychiatric/Behavioral: Negative for confusion. The patient is not nervous/anxious. Physical Exam Vitals and nursing note reviewed. Constitutional: General: She is not in acute distress. Appearance: Normal appearance. HENT: Head: Normocephalic and atraumatic. Eyes: General: Vision grossly intact. Cardiovascular: Rate and Rhythm: Normal rate. Pulmonary: (more content not included)... Normal [facility] XR CHEST 1 VIEWon 09-21-2024 XR CHEST 1 VIEW Patient Name: FOZIA BREEN : 1960 Exam Date/Time: 09/21/2024 08:40 Procedure: XR CHEST 1 VIEW Ordering Provider: PEREZ ERIC Reason For Exam: Chest tube placement PORTABLE CHEST X-RAY CLINICAL INDICATION: Chest tube placement A portable frontal view of the chest was obtained. COMPARISON: 09/20/2024 FINDINGS: Heart size is within normal limits. Left-sided chest tubes are unchanged. There is streaky bilateral lower lobe atelectasis or infiltrate, similar to the prior examination. No new areas of consolidation are seen. There is no evidence of pneumothorax. Bony structures are unremarkable. IMPRESSION: No significant change when compared with the previous study. Report Dictated on Electronically Signed By: Yousuf Carrasquillo MD Electronically Signed Date/Time: 09/21/2024 8:54 AM EDT Normal [facility] XR Chest Single viewon 09-21 No significant change when compared with the previous study. Report Dictated on Electronically Signed By: Yousuf Carrasquillo MD Electronically Signed Date/Time: 09/21/2024 8:54 AM EDT [facility] Patient Name: FOZIA BREEN : 1960 Exam Date/Time: 09/21/2024 08:40 Procedure: XR CHEST 1 VIEW Ordering Provider: PEREZ ERIC Reason For Exam: Chest tube placement PORTABLE CHEST X-RAY CLINICAL INDICATION: Chest tube placement A portable frontal view of the chest was obtained. COMPARISON: 09/20/2024 FINDINGS: Heart size is within normal limits. Left-sided chest tubes are unchanged. There is streaky bilateral lower lobe atelectasis or infiltrate, similar to the prior examination. No new areas of consolidation are seen. There is no evidence of pneumothorax. Bony structures are unremarkable. [facility] Yousuf Carrasquillo MD - 09/21/2024 Patient Name: FOZIA BREEN : 1960 [facility]#: [id number] Exam Date/Time: 09/21/2024 08:40 Procedure: XR CHEST 1 VIEW Ordering Provider: PEREZ ERIC Reason For Exam: Chest tube placement PORTABLE CHEST X-RAY CLINICAL INDICATION: Chest tube placement A portable frontal view of the chest was obtained. COMPARISON: 09/20/2024 FINDINGS: Heart size is within normal limits. Left-sided chest tubes are unchanged. There is streaky bilateral lower lobe atelectasis or infiltrate, similar to the prior examination. No new areas of consolidation are seen. There is no evidence of pneumothorax. Bony structures are unremarkable. IMPRESSION: No significant change when compared with the previous study. Report Dictated on Electronically Signed By: Yousuf Carrasquillo MD Electronically Signed Date/Time: 09/21/2024 8:54 AM EDT [facility] Radiology Study observation (narrative) [facility] XR Chest Single viewOrdered By: Yousuf Carrasquillo on 09-21-2024 [facility] ABO and Rh group Confirm Nom (Bld)on 09-20-2024 ABO group Nom (Bld) O [facility] D Ag Ql (RBC) Positive [facility] Airwayon 09-20-2024 BRAYAN Love - DATABASES COMPUTER CONSULTANT 09/20/2024 2:25 PM Airway Date/Time: 09/20/2024 1:40 PM Reason: scheduled Airway not difficult General Information and Staff Patient location during procedure: Procedural Anesthesiologist: Jorge Ortiz DO Resident/DATABASES COMPUTER CONSULTANT: Mariia Talavera APRN - DATABASES COMPUTER CONSULTANT Performed: DATABASES COMPUTER CONSULTANT Patient Condition Indications for airway management: anesthesia and airway protection Patient position: sniffing Sedation level: Asleep Final Airway Details Preoxygenated: yes Final airway type: endotracheal airway Successful airway: ETT - double lumen left Cuffed: yes Successful intubation technique: direct laryngoscopy Adjuncts used in placement: intubating stylet Endotracheal tube insertion site: oral Blade: Miri Blade size: #3 ETT DL size (fr): 35 Cormack-Lehane Classification: grade IIa - partial view of glottis Placement verified by: chest auscultation, bronchoscopy, capnometry and single lung ventilation Measured from: lips ETT to lips (cm): 29 Ventilation between attempts: BVM Number of attempts at approach: 1 Additional Comments Atraumatic, dentition & oral mucosa unchanged. Placement verified by bronch with Dr. Ortiz [facility] Arterial Lineon 09-20-2024 DARRYL Hopper RN - DATABASES COMPUTER CONSULTANT 09/20/2024 1:54 PM Arterial Line: Date/Time: 09/20/2024 1:42 PM An arterial line was placed Procedure performed using ultrasound guidance - Image permanently retained with wire or catheter in vein.in the Procedural for the following indication(s): continuous blood pressure monitoring and blood sampling needed. A 20 gauge (size), 1 and 3/4 inch (length), Arrow (type) catheter was placed, into the Right radial artery, secured by Tegaderm and tape. Events: patient tolerated procedure well with no complications. Staffing Performed: DATABASES COMPUTER CONSULTANT Anesthesiologist: Jorge Ortiz DO Resident/DATABASES COMPUTER CONSULTANT: Jani Mendoza APRN - DATABASES COMPUTER CONSULTANT [facility] BASIC METABOLIC PANELon 09-06 Anion gap [Moles/Vol] 13 mmol/L Normal 3-13 [facility] Comment on above: Performed By: #### L [id number] ####Telephone Solicitor: MAL [phone])[facility] ([facility])[address] [place] [address] Calcium [Mass/Vol] 9.1 mg/dL Normal 8.8-10.0 [facility] Comment on above: Performed By: #### L AB15 ####Telephone Solicitor: MAL [phone])[facility] ([facility] [place] [address] Chloride [Moles/Vol] 103 mmol/L Normal 98-107 [facility] Comment on above: Performed By: #### L AB15 ####Telephone Solicitor: MAL [phone])[facility] ([facility] [place] [address] CO2 [Moles/Vol] 21 mmol/L Low 23-31 [facility] Comment on above: Performed By: #### L AB15 ####Telephone Solicitor: MAL ARVIZU ([phone])[facility])[address] [place] [address] Creatinine [Mass/Vol] 0.89 mg/dL Normal 0.57-1.11 [facility] Comment on above: Performed By: #### L AB15 ####Telephone Solicitor: MAL ARVIZU ([phone])[facility] ([facility])[address] [place] [address] GLOMERULAR FILTRATION RATE ML/MIN/1.73 SQ M.PREDICTED 73.9 mL/min/1.73m*2 Normal >60.0 [facility] Comment on above: Result Comment: Calc ulation based on the Chronic Kidney Disease Epidemiology Collaboration (CKD-EPI) equation refit without adjustment for race Performed By: #### L AB15 ####Telephone Solicitor: MAL ARVIZU ([phone])[facility] ([facility])[address] [place] [address] Glucose [Mass/Vol] 189 mg/dL High 82-115 [facility] Comment on above: Performed By: #### L AB15 ####Telephone Solicitor: MAL ARVIZU ([phone])[facility])[address] [place] [address] Potassium [Moles/Vol] 3.9 mmol/L Normal 3.5-5.1 [facility] Comment on above: Result Comment: [facility] potassium values may be up to 0.5 mmol/L lower than serum values. Performed By: #### L AB15 ####Telephone Solicitor: MAL ARVIZU ([phone])[facility] ([facility])[address] [place] [address] [place] Sodium [Moles/Vol] 137 mmol/L Normal 136-145 [facility] Comment on above: Performed By: #### L AB15 ####Telephone Solicitor: MAL ARVIZU ([phone])[facility] ([facility])[address] Urea nitrogen [Mass/Vol] 14 mg/dL Normal 9-23 [facility] Comment on above: Performed By: #### L AB15 ####Telephone Solicitor: MAL ARVIZU ([phone])[facility] ([facility])[address] [place] [address] BLOOD TYPE AND SCREEN GELon 09-20-2024 ABO GROUPING O Normal [facility] Comment on above: Performed By: #### L [id number] ####Telephone Solicitor: MAL ARVIZU ([phone])[facility] ([facility])[address] [place] [address] RH TYPE IN BLOOD Positive Normal [facility] Comment on above: Performed By: #### L [id number] ####Telephone Solicitor: MAL ARVIZU ([phone])[facility] ([facility])[address] [place] [address] Basic metabolic 1998 panelon 09-20-2024 Anion gap [Moles/Vol] 13 mmol/L 3 - 13 mmol/L [facility] Calcium [Mass/Vol] 9.1 mg/dL 8.8 - 10. 0 mg/dL [facility] Chloride [Moles/Vol] 103 mmol/L 98 - 10 7 mmol/L [facility] CO2 [Moles/Vol] 21 mmol/L Low 23 - 31 mmol/L [facility] Creatinine [Mass/Vol] 0.89 mg/dL 0.57 - 1.11 mg/dL [facility] GFR/1.73 sq M.predicted (S/P/Bld) [Vol rate/Area] 73.9 mL/min - PINF [facility] Comment on above: Calculation based on the Chronic Kidney Disease Epidemiology Collaboration (CKD-EPI) equation refit without adjustment for race Glucose [Mass/Vol] 189 mg/dL High 82 - 115 mg/dL [facility] Interpretation and review of laboratory results Abnormal [facility] Potassium [Moles/Vol] 3.9 mmol/L 3.5 - 5.1 mmol/L [facility] Comment on above: Plasma potassium roxy ues may be up to 0.5 mmol/L lower than serum values. Sodium [Moles/Vol] 137 mmol/L 136 - 145 mmol/L [facility] Urea nitrogen [Mass/Vol] 14 mg/dL 9 - 23 mg/dL [facility] Blood type and Crossmatch pa tessy (Bld)on 09-20-2024 ABO group Nom (Bld) O [facility] Blood group antibody screen GEL Ql Negative [facility] D Ag Ql (RBC) Positive [facility] CBC (HEMOGRAM)on 09-20-2024 Erythrocyte distribution width (RBC) [Ratio] 13.3 % Normal 11.5-15.0 [facility] Comment on above: Performed By: #### L [id number] ####Telephone Solicitor: MAL ARVIZU ([phone])[facility])[address] [place] [address] Hematocrit (Bld) [Volume fraction] 43.4 % Normal 35.0-47.0 [facility] Comment on above: Performed By: #### L [id number] ####Telephone Solicitor: MAL ARVIZU ([phone])[facility])[address] [place] [address] Hemoglobin (Bld) [Mass/Vol] 13.7 g/dL Normal 11.7-16.0 [facility] Comment on above: Performed By: #### L [id number] ####Telephone Solicitor: MAL ARVIZU ([phone])[facility])[address] [place] [address] MCH (RBC) [Entitic mass] 29.2 pg Normal 26.0-34.0 [facility] Comment on above: Performed By: #### L [id number] ####Telephone Solicitor: MAL ARVIZU ([phone])[facility])[address] [place] [address] MCHC 31.6 % Normal 30.5-36.0 [facility] Comment on above: Performed By: #### L [id number] ####Telephone Solicitor: MAL ARVIZU ([phone])[facility])[address] [place] [address] MCV (RBC) [Entitic vol] 92.5 fL Normal 77.0-99.0 [facility] Comment on above: Performed By: #### L [id number] ####Telephone Solicitor: MAL ARVIZU ([phone])[facility])[address] [place] [address] Platelet mean volume (Bld) [Entitic vol] 10.5 fL Normal 9.0-12.7 [facility] Comment on above: Performed By: #### L [id number] ####Telephone Solicitor: MAL ARVIZU ([phone])[facility] ([facility])[address] [place] [address] Platelets (Bld) [#/Vol] 309 10*3/uL Normal 140-440 [facility] Comment on above: Performed By: #### L [id number] ####Telephone Solicitor: MAL ARVIZU ([phone])[facility])[address] [place] [address] RBC (Bld) [#/Vol] 4.69 10*6/uL Normal 3.80-5.20 [facility] Comment on above: Performed By: #### L [id number] ####Telephone Solicitor: MAL ARVIZU ([phone])[facility])[address] [place] [address] WBC (Bld) [#/Vol] 17.3 10*3/uL High 3.6-10.7 [facility] Comment on above: Performed By: #### L [id number] ####Telephone Solicitor: MAL ARVIZU ([phone])[facility])[address] [place] [address] CBC panel Auto (Bld)Ordered By: Susie Jones on 09-20-2024 Erythrocyte distribution width (RBC) [Ratio] 13.3 % 11.5 - 15.0 % [facility] Hematocrit (Bld) [Volume fraction] 43.4 % 35.0 - 47.0 % [facility] Hemoglobin (Bld) [Mass/Vol] 13.7 g/dL 11.7 - 16.0 g/dL [facility] Interpretation and review of laboratory results Abnormal [facility] MCH (RBC) [Entitic mass] 29.2 pg 26.0 - 34.0 pg [facility] MCHC (RBC) [Mass/Vol] 31.6 % 30.5 - 36.0 % [facility] MCV (RBC) [Entitic vol] 92.5 fL 77.0 - 99.0 fL [facility] Platelet mean volume (Bld) [Entitic vol] 10.5 fL 9.0 - 12.7 fL [facility] Platelets (Bld) [#/Vol] 309 10*3/uL 140 - 440 10*3/uL [facility] RBC (Bld) [#/Vol] 4.69 10*6/uL 3.80 - 5.2 0 10*6/uL [facility] WBC (Bld) [#/Vol] 17.3 10*3/uL High 3.6 - 10.7 10*3/uL [facility] ECG 12-LEADon 09-20-2024 ECG 12-LEAD IMPRESSION: Sinus rhythm Electronically Signed On 09-20-2024 10:45:51 EDT by Abdi Parisi Normal [facility] HEMOGLOBIN AND HEMATOCRIT, B LOODon 09-20-2024 Hematocrit (Bld) [Volume fraction] 43.7 % Normal 35.0-47.0 [facility] Comment on above: Performed By: #### L [id number] ####Telephone Solicitor: MAL ARVIZU ([phone])[address] Hemoglobin (Bld) [Mass/Vol] 14.2 g/dL Normal 11.7-16.0 [facility] Comment on above: Performed By: #### L [id number] ####Telephone Solicitor: MAL ARVIZU ([phone])[facility] ([address] Hemoglobin (Bld) [Mass/Vol]o n 09-20-2024 Hematocrit (Bld) [Volume fraction] 43.7 % 35.0 - 47.0 % [facility] Interpretation and review of laboratory results Normal [facility] - Hematology and Cell countson 09-20-2024 Hemoglobin (Bld) [Mass/Vol] 14.2 g/dL 11.7 - 16.0 g/dL [employer] No Panel InformationOrdered By: AbdiU[employer]S. [employer] on 09-20-2024 P [place] 40 degrees [employer] Work Phone: IA Interval 142 ms [employer] Work Phone: QRS [place] 51 degrees [employer] Phone: QRSD Interval 86 ms [employer] Phone: QT Interval 350 ms [employer] Work Phone: QTC Interval 417 ms [employer] Phone: T Wave [place] 43 degrees [employer] Phone: [employer] Phone: No Panel Informationon 09-20 Sinus rhythm Electronically Signed On 09-20-2024 10:45:51 EDT by [employer] SHONDA [facility], Abdi Winter MD - 09/20/2024 IMPRESSION: Sinus rhythm Electronically Signed On 09-20-2024 10:45:51 EDT by [employer] [facility] Nursing Noteon 09-20-2024 Nursing Note Patient family/visit or updated by RN at this time. Normal [facility] Nursing Note Pt declined Xanax at this time. Normal [facility] Op Noteon 09-20-2024 Op Note [facility] Cardi[facility]acic [facility] Operative Report Pre-operative Diagnosis: PET positive left lower lobe lung nodule suspicious for malignancy Post-operative Diagnosis: Same, frozen section consistent with non-small cell lung cancer Procedure: Diagnostic left thoracoscopy, conversion to open thoracotomy with wedge resection of the left lower lobe lung lesion with frozen section; left lower lobectomy with mediastinal lymph node sampling (levels 8, 10, 12, 5) Surgeon: Lee Ann Perez MD Hr Recruiter(s): NO Pacheco MD Anesthesia: General Estimated blood loss: 100 cc Total IV fluids: See anesthesia record Drains: Pleural drains left in place Specimens: Wedge resection left lower lobe, completion left upper lobectomy, mediastinal lymph nodes resections 8, 10, 12, 5 Complications: None Condition: Stable Prophylactic Antibiotics: Yes 1st or 2nd generation cephalosporin given (or other antibiotic in the event of an allergy) within 1 hour of surgical incision (two hours if receiving Vancomycin or flouroquinolone) If NO, indication reason why: [] Patient on continuous antibiotics for documented preoperative infection [] Other: Classification of Wound Prior to Procedure: II Classification of Wound After Procedure: II INDICATIONS FOR PROCEDURE: A PET positive, growing lung nodule within the left lower lobe was discovered in a 63 YO current smoker with a long standing history of rheumatoid arthritis. This lesion was originally detected and measured 5mm (we have no record of that imaging). Presently, the lesion in the LLL measures 10mm and is PET-avid. The treatment options that we discussed included continued observation, needle biopsy, or surgical excisional biopsy via wedge resection with frozen section and lower lobectomy if malignancy was identified. The risks benefits and alternatives to all of these options were discussed and patient wishes to proceed with the most definitive excisional biopsy and lobectomy at the same setting if frozen section proved the lesion to be malignant. DESCRIPTION OF PROCEDURE: Patient was brought to the operative suite in the fasting state. General endotracheal anesthesia was instituted and a double-lumen endotracheal tube was placed for isolation of the lung. IVs and arterial monitoring were arranged by the department of anesthesia. Patient was placed on the lateral decubitus position preparation for left thoracoscopy. After the patient was positioned prepped and draped, timeout was conducted. We began with a thoracoscopic evaluation of the left lung. A small incision was made as the lung was isolated and the thoracoscope was inserted through a Thoracoport. An accessory port was placed as well and this allowed us to visualize the entire lung. No evidence of malignancy was seen on the surface of the lung. The undersurface of the rib cage was free of pathology. Attempted identification of the left lower lobe nodule was unsuccessful. Therefore, we converted to a open muscle-sparing minithoracotomy. Access was gained to the 6 intercostal space. At that point we palpated the lung and were able to identify the nodule just below the surface of the lung on the left lower lobe. Using a linear stapler, a wedge resection was performed to incorporate this mass into the specimen. The specimen was sent for pathologic evaluation. Frozen section revealed that this was a non-small cell carcinoma. Therefore, we proceeded with left lower lobectomy as was discussed preoperatively. The left lower lobectomy was performed by mobilizing the inferior pulmonary ligament and mobilizing the hilum anteriorly posteriorly. We then identified the left lower lobe pulmonary vein and isolated and simultaneously stapled and transected using a stapler. The pulmonary arterial branches were then dissected free from the main left-sided pulmonary artery. Again these were individually isolated/selectively stapled and transected using a linear stapler. We completed the fissural attachments with a combination of cautery and a linear stapler. Once we had completely severed all vascular connections to the left lung, we fired a staple across the lower lobe bronchus after assuring that there was good aeration of the remainder of the lung. Specimen was sent for pathologic evaluation. The bronchial stump was tested to 30 cm of pressure and no air leaks were seen. We again proceeded with mediastinal lymph node sampling and sampled lymph nodes from level 5 as well as levels 8, 10, 12). These were sent separately labeled containers. Once the nodes had been sent for pathologic evaluation, chest tubes were inserted through 2 of the trocar's plates that were placed previously and appropriately positioned within the hemithorax. We then reexpanded the lung and having seen no significant air leaks we proceeded with closure of the ribs were reapproximated with #2 Vicryl's and the o (more content not included)... [facility] Op Note Date: 09/20/2024 Loca tion: [facility] OR Name: Fozia Breen, : 1960, Diagnosis Pre-op Diagnosis * Solitary pulmonary nodule [R91.1] Post-op Diagnosis * Solitary pulmonary nodule [R91.1] Procedures THORACOSCOPY WITH WEDGE RESECTION LEFT LOWER LOBE 69571 - IA THORACOSCOPY W/DX WEDGE RESEXN ANATO LUNG RESEXN LOBECTOMY, LUNG, OPEN 12433 - IA RMVL LUNG OTHER THAN PNEUMONECTOMY 1 LOBE LOBECT Surgeons * Lee Ann Fernandez Perez - Primary Procedure Summary Anesthesia: General ASA: III Estimated Blood Loss: 50 mL Drains: Chest Tube 1 Left Fourth intercostal space 28 Fr (Active) Function To water seal 09/20/24 1625 Dressing Status Clean, dry & intact 09/20/24 1625 Site Assessment Not assessed 09/20/24 162 Chest Tube 2 Left Fourth intercostal space 24 Fr (Active) Function To water seal 09/20/24 1625 Dressing Status Clean, dry & intact 09/20/24 162 Site Assessment Not assessed 09/20/24 162 Specimens ID Source Type Tests Collected By Collected At Frozen? Priority Lab ID 1 Lung, Left Lower Lobe Tissue TISSUE EXAM Lee Ann Perez MD 09/20/24 1440 Yes Description: Left Lower Lobe Wedge Resection 2 Lung, Left Lower Lobe Tissue TISSUE EXAM Lee Ann Perez MD 09/20/24 1522 Description: Left Lower Lobe 3 Lymph Node Tissue TISSUE EXAM Lee Ann Preez MD 09/20/24 1523 Description: Level 5 4 Lymph Node Tissue TISSUE EXAM Lee Ann Perez MD 09/20/24 1524 Description: Level 4 5 Lymph Node Tissue TISSUE EXAM Lee Ann Perez MD 09/20/24 1526 Description: level 8 6 Lymph Node Tissue TISSUE EXAM Lee Ann Perez MD 09/20/24 1527 Description: level 10 Staff: Iron Pellet Tester: Nina Arredondo RN; Jolly Arteaga RN Relief Iron Pellet Tester: Pepe Cruz RN Scrub Person: Yamile Medina RN; Cary Bustamante RN Findings: No air leak post op X2 chest tubes Intra op frozen - NSCLC Complications: None; patient tolerated the procedure well. Specimens Collected: Order Name Source Comment Collection Info Order Time POTASSIUM WITH MG REFLEX For patients on dialysis to draw potassium day of surgery 09/20/2024 10:06 AM PROTHROMBIN TIME If patient on coumadin within 4 days prior. 09/20/2024 10:06 AM BLOOD TYPE AND SCREEN GEL Blood, Venous Collected By: Ashlyn Riggs RN 09/20/2024 10:07 AM HEMOGLOBIN AND HEMATOCRIT, BLOOD Blood, Venous Collected By: Ashlyn Riggs RN 09/20/2024 10:07 AM TISSUE EXAM Lung, Left Lower Lobe Collected By: Lee Ann Perez MD 09/20/2024 2:40 PM Wound Class: Class I: Clean Blood Products: None Prophylactic Antibiotics: Procedure appropriate prophylactic antibiotic(s) given within 1 hour of surgical incision (two hours if receiving Vancomycin or flouroquinolone) Moises Pacheco MD PGY5, General Surgery Pager #[phone] [facility] DARRYL Hopper RN - DATABASES COMPUTER CONSULTANT 09/20/2024 2:00 PM Peripheral Block Time Out: 09/20/2024 1:45 PM Patient location during procedure: Procedural Start time: 09/20/2024 1:45 PM End time: 09/20/2024 1:47 PM Reason for block: at surgeon's request and post-op pain management Staffing Performed: DATABASES COMPUTER CONSULTANT Anesthesiologist: Jorge Ortiz DO Resident/DATABASES COMPUTER CONSULTANT: Jani Mendoza APRN - ABEL Preanesthetic Checklist Completed: patient identified, IV checked, site marked, risks and benefits discussed, surgical consent, monitors and equipment checked, pre-op evaluation and timeout performed Region: Truncal Primary: Serratus Anterior Peripheral Block Patient position: supine Prep: ChloraPrep Patient monitoring: heart rate, cardiac cath tech, continuous pulse ox and continuous capnometry O2: ETT/LMA Laterality: left Injection technique: single-shot Guidance: ultrasound guided -image retained in chart, tip of the needle identified by ultraound during injection. Needle Needle: 22G X 80 mm Additional Notes 09/20/2024 1:45 PM Assessment Injection assessment: negative aspiration for heme, no paresthesia on injection and incremental injection Paresthesia pain: none Heart rate change: no Slow fractionated injection: yes Required Documentation: Relevant anatomy identified (Nerves, Vessels, Muscles), Local anesthetic spread visualized around nerves or plane., Local anesthetic injected without difficulty, No EKG changes noted, Negative for blood on aspiration, Local anesthetic injected incrementally with intermittent aspiration every 5 mL, No symptoms of toxicity, No paresthesias reported by patient during injection and Normal resistance with injectionMedications dexAMETHasone-bupivacaine- epinephrine (TAP) syringe - Injection 20 mL - 09/20/2024 1:45:00 PM bupivacaine liposome (Exparel) 1.3 % injection - Injection 10 mL - 09/20/2024 1:45:00 PM [facility] DARRYL Hopper RN - DATABASES COMPUTER CONSULTANT 09/20/2024 2:00 PM Peripheral Block Time Out: 09/20/2024 12:55 PM Patient location during procedure: pre-op Start time: 09/20/2024 12:55 PM End time: 09/20/2024 1:00 PM Reason for block: at surgeon's request and post-op pain management Staffing Performed: DATABASES COMPUTER CONSULTANT Anesthesiologist: Jorge Ortiz DO Resident/DATABASES COMPUTER CONSULTANT: ALICE Hopper CRNA Preanesthetic Checklist Completed: patient identified, IV checked, site marked, risks and benefits discussed, surgical consent, monitors and equipment checked, pre-op evaluation and timeout performed Region: Truncal Primary: Erector Spinae Peripheral Block Patient position: sitting Prep: ChloraPrep Patient monitoring: heart rate, cardiac cath tech and continuous pulse ox O2: Room air Laterality: left Injection technique: single-shot Guidance: ultrasound guided -image retained in chart, tip of the needle identified by ultraound during injection. Infiltration strength: 2 % Dose: 5 mL Needle Needle: 22G X 80 mm Additional Notes 09/20/2024 12:55 PM and midazolam (Versed) injection - IntraVENous 2 mg - 09/20/2024 12:55:00 PM Assessment Injection assessment: negative aspiration for heme, no paresthesia on injection and incremental injection Paresthesia pain: none Heart rate change: no Slow fractionated injection: yes Required Documentation: Relevant anatomy identified (Nerves, Vessels, Muscles), Local anesthetic spread visualized around nerves or plane., Local anesthetic injected without difficulty, Negative for blood on aspiration, No EKG changes noted, Local anesthetic injected incrementally with intermittent aspiration every 5 mL, No symptoms of toxicity, No paresthesias reported by patient during injection and Normal resistance with injectionMedications midazolam (Versed) injection - IntraVENous 2 mg - 09/20/2024 12:55:00 PMdexAMETHasone-bupivacain e-epinephrine (TAP) syringe - Injection 20 mL - 09/20/2024 12:55:00 PM bupivacaine liposome (Exparel) 1.3 % injection - Injection 10 mL - 09/20/2024 12:55:00 PM [facility] Peripheral Nafisa 09-20-2024 BRAYAN Love CRNA 09/20/2024 2:23 PM Peripheral IV Date/Time: 09/20/2024 1:50 PM Inserted by: ALICE Love CRNA Placement Needle size: 18 G Laterality: right Location: hand Local anesthetic: none Site prep: chlorhexidine Technique: anatomical landmarks Attempts: 1 [facility] Progress Noteon 09-20-2024 Progress Note Patient stable at th is time. Patient denies ringing in ears, numbness or tingling. Family at bedside. Normal [facility] Vital signsOrdered By: Lavellmariana aminata Ailin on 09-20-2024 Heart rate 85 /min bpm [facility] [employer] Work Phone: XR CHEST 1 VIEWon 09-20-2024 XR CHEST 1 VIEW Patient Name: FOZIA BREEN : 1960 Exam Date/Time: 09/20/2024 17:10 Procedure: XR CHEST 1 VIEW Ordering Provider: PEREZ ERIC Reason For Exam: Chest tube in place CHEST PORTABLE CLINICAL INDICATION: Chest tube in place TECHNIQUE: Portable chest x-ray(s). COMPARISON: None. FINDINGS: Left thoracostomy tubes x2, with tips projecting over the left hilum and inferomedial lung, respectively. Cardiac and mediastinal silhouette within normal limits. Lungs are hypoinflated and show patchy, partially confluent opacities projecting over the lower lungs. No apparent pneumothorax. Degenerative change in the thoracic spine. IMPRESSION: 1. Left thoracostomy tubes x2. 2. Findings which may represent bibasilar atelectasis, mild infiltrate(s) or postinflammatory change of uncertain etiology or chronicity. Report Dictated on Electronically Signed By: Jamal Dumont MD Electronically Signed Date/Time: 09/20/2024 5:23 PM EDT Normal [facility] XR Chest Single viewon 09-20 1. Left thoracostomy tubes x2. 2. Findings which may represent bibasilar atelectasis, mild infiltrate(s) or postinflammatory change of uncertain etiology or chronicity. Report Dictated on Electronically Signed By: Jamal Dumont MD Electronically Signed Date/Time: 09/20/2024 5:23 PM EDT [facility] Patient Name: FOZIA BREEN : 1960 Exam Date/Time: 09/20/2024 17:10 Procedure: XR CHEST 1 VIEW Ordering Provider: PEREZ, LEE ANN Reason For Exam: Chest tube in place CHEST PORTABLE CLINICAL INDICATION: Chest tube in place TECHNIQUE: Portable chest x-ray(s). COMPARISON: None. FINDINGS: Left thoracostomy tubes x2, with tips projecting over the left hilum and inferomedial lung, respectively. Cardiac and mediastinal silhouette within normal limits. Lungs are hypoinflated and show patchy, partially confluent opacities projecting over the lower lungs. No apparent pneumothorax. Degenerative change in the thoracic spine. [facility] Jamal Dumont MD - 09/20/2024 [facility] 1960 [id number] Exam Date/Time: 09/20/2024 17:10 Procedure: XR CHEST 1 VIEW Ordering Provider: PEREZ ERIC Reason For Exam: Chest tube in place CHEST PORTABLE CLINICAL INDICATION: Chest tube in place TECHNIQUE: Portable chest x-ray(s). COMPARISON: None. FINDINGS: Left thoracostomy tubes x2, with tips projecting over the left hilum and inferomedial lung, respectively. Cardiac and mediastinal silhouette within normal limits. Lungs are hypoinflated and show patchy, partially confluent opacities projecting over the lower lungs. No apparent pneumothorax. Degenerative change in the thoracic spine. IMPRESSION: 1. Left thoracostomy tubes x2. 2. Findings which may represent bibasilar atelectasis, mild infiltrate(s) or postinflammatory change of uncertain etiology or chronicity. Report Dictated on Electronically Signed By: Jamal Dumont MD Electronically Signed Date/Time: 09/20/2024 5:23 PM EDT [facility] [employer] Radiology Study observation (narrative) [facility] [employer] XR Chest Single viewOrdered By: Jamal Dumont on 09-20-2024 [facility] [employer] Work Phone: [phone] 09-13-2024 [id number] Medication List Accurate as of September 13, 2024 10:56 AM. Always use your most recent med list. acetaminophen 500 MG tablet Commonly known as: Tylenol Medication Adjustments for Surgery: Take morning of surgery cetirizine 10 MG tablet Commonly known as: ZyrTEC Medication Adjustments for Surgery: Take morning of surgery DULoxetine [address] capsule Commonly known as: Cymbalta Medication Adjustments for Surgery: Take morning of surgery folic acid 1 MG tablet Commonly known as: Folvite Notes to patient: Continue to hold leucovorin 15 MG tablet Commonly known as: Wellcovorin Notes to patient: Not currently taking methotrexate 2.5 MG tablet Notes to patient: Not currently taking predniSONE 5 MG tablet Commonly known as: Deltasone Notes to patient: Not currently taking varenicline 0.5 MG tablet Commonly known as: Chantix Medication Adjustments for Surgery: Take morning of surgery VITAMIN D2 PO Notes to patient: Continue to hold Shower with an antibacterial soap such as Dial or Safeguard. No makeup,lotion,powder,deodo rant or body sprays. No hair products. Remove all jewelry and leave it at home. You may brush your teeth,floss,use mouthwash morning of surgery. Do not wear contacts DOS. No alcohol or smoking 24 hours prior to surgery and nothing to eat after midnight. Up until 2 hours prior to you surgery time, you may have clear liquids. Water,apple juice, sprite, 7-up, shanna marisa. Clear tea or black coffee. Gatorade/Powerade. No cream, no milk, no dairy. No jello, no soup broth or orange juice. No candy,mints or gum. No THC, smoking or alcohol for 24 hours prior to surgery. Please bring your [facility] Surgical folder with you day of surgery. Please bring photo ID and insurance information. Please arrange for someone to drive you home after your surgery and that there is a responsible person with your for 24 hours post discharge. On the day of discharge please arrange to have your transport arrive at 11am. You may take your prescription pain medication. You may take Tylenol for pain. NO Motrin, ibuprofen or Advil for 24 hours prior to surgery or longer if instructed by your surgeon. NO Aleve or naprosyn for 5 days prior to surgery or longer if instructed by your surgeon. NO MOBIC/MELOXICAM FOR 5 DAYS PRIOR TO SURGERY. DO NOT take aspirin or aspirin containing products for 5 days before surgery, or longer if instructed by your surgeon. Follow any instructions given to you by Dr. Perez If you have specific questions, please call your surgeon. Same day surgery will call the day before your surgery to verify time and date. You may use the [employer] parking located at the main entrance on [address] and take the H elevator to the first floor for same day surgery. Take a left after exiting the elevator and check in at the desk. Or- You may use the parking in the Main deck. Take the level one bridge to the H building and follow the signs for same day surgery. Check in at the desk. Normal [facility] 36on 09-02-2024 36 Surg proc orders stacia avril. Benjamin Moffett, ENGINEERING DRAFTER - BEEF GRINDER 09/02/24 Normal [facility] 6 Minute Walk Teston 08-31-2 025 6 Minute Walk Test y [facility] [address] [place] [address] MR#: [id number] Acct: [id number] Name: FOZIA BREEN Rep #: [id number] : 1960 63 From: Shivam Pryor DO Referring Dr: Angeline Lew RUSTIC FENCE BUILDER RUSTIC FENCE BUILDER-C Status: REG CLI Location: PSN Date: Sex: F C PSN 6 Minute Walk Test 6 Minute Walk Test 6 Minute Walk Test: 6 Minute Walk Test PSN:6-Minute Walk Test Start: 08/30/24 11:32 Freq: Status: Active Protocol: RESP.6MINW Document 08/30/24 11:32 SFENTON (Rec: 08/30/24 11:34 SFENTON [id number]) 6 Minute Walk Test Date Performed 08/30/24 Time Performed 11:20 Height 5 ft 1 in Weight: 178 lb Weight in Pounds 178.[address]: Angeline Lew NP Assistive device None used: Pre-test Oxygen Delivery Room Air Method Pulse Ox (%) 95 Pulse Rate (60-100 94 beats/min) Dyspnea Jd Scale ( 0 0-10) Exertion Jd Scale 6 (6-20) 1st minute Oxygen Delivery Room Air Method Pulse Ox (%) 94 Pulse Rate (60-100 109 H beats/min) 2nd minute Oxygen Delivery Room Air Method Pulse Ox (%) 94 Pulse Rate (60-100 109 H beats/min) 3rd minute Oxygen Delivery Room Air Method Pulse Ox (%) 94 Pulse Rate (60-100 113 H beats/min) 4th minute Oxygen Delivery Room Air Method Pulse Ox (%) 95 Pulse Rate (60-100 122 H beats/min) 5th minute Oxygen Delivery Room Air Method Pulse Ox (%) 96 Pulse Rate (60-100 122 H beats/min) 6th minute Oxygen Delivery Room Air Method Pulse Ox (%) 95 Pulse Rate (60-100 120 H beats/min) Dyspnea Jd Scale ( 1 0-10) Exertion Jd Scale 12 (6-20) Post-test Oxygen Delivery Room Air Method Pulse Ox (%) 96 Pulse Rate (60-100 90 beats/min) Full Laps Walked 15 Partial Lap, Number 52 of Tiles Walked Total Distance 937 Walked (ft) Interpretation Interpretation: The patient ambulated 937 feet over the course of 6 minutes beginning on room air without assistive devices. Pretesting oxygen saturation was noted to be 95% on room air. With ambulation, the nelida oxygen saturation was 94%. There was no significant exertional oxygen desaturation. Recommendations Recommendations: There is no indication for the use of supplemental oxygen at this time. 08/31/24 1220 Date Shivam Pryor DO CC: Date Dictated: 08/31/24 1220 Date Transcribed: 08/31/241219 Transition Advisor: Dr. Shivam Pryor DO Signed Normal [facility] Office Visiton 08-28-2024 Follow-up visit [id number] Fozia Breen 1960 F Date Provider Department Center 08/28/2024 [id number], LEE ANN Fernandez [facility] None Family History Problem Relation Age of Onset Hypertension Mother Diabetes Mother Asthma Mother Ulcerative colitis Mother Arthritis Mother Coronary artery disease Father Heart attack Father Hypertension Father Heart disease Father Coronary artery disease Brother Heart disease Brother Hypertension Brother Heart attack Brother Family Status - Relation Status Age at Mother Father Brother Level of Service:97735 [place] OFFICE/OUTPATIENT NEW HIGH MDM 60 MINUTES Reason for Visit and Comments: New Patient [542] Normal [facility] Progress Noteon 08-28-2024 Progress Note [facility] CARDIOVASCULAR & THORACIC SUR[facility]ERY [address] [facility] [address] [facility] [address] Dept: [phone] Dept Loc: [phone] Visit type: New Reason for Visit: PET positive, growing lung nodule left lower lobe. Assessment and plan PET positive, growing lung nodule left lower lobe in a 63 YO current smoker with a long standing history of rheumatoid arthritis. This lesion was originally detected and measured 5mm (we have no record of that imaging). Presently, the lesion in the LLL measures 10mm and is PET-avid. The treatment options that we discussed included continued observation, needle biopsy, or surgical excisional biopsy via wedge resection with frozen section and lower lobectomy if malignancy was identified. The risks benefits and alternatives to all of these options were discussed and patient wishes to proceed with the most definitive excisional biopsy and lobectomy at the same's setting if this should proved to be malignant. This is a reasonable strategy and we will schedule elective surgery. In the meantime, she has already started Chantix, plans on completely stopping smoking on Tuesday of this week. I encouraged smoking cessation and we will schedule surgery in approximately 3 weeks to allow her lungs a bit of a chance to recover with good smoking cessation prior to proceeding with surgery. This should minimize the risk for perioperative pneumonia. Her pulmonary function tests and 6-minute exercise test will be done later this week to assure that her pulmonary functions are acceptable. There is no sign of distant metastatic disease. History of Present Illness Fozia Breen is a 63 y.o. female referred by LIZANDRO Ocasio for enlarging, PET positive left lower lobe lung nodule. Per note, pt had lung screening CT chest completed on 07/18/24 which demonstrated a nodular density in the peripheral lateral aspect of the left lower lobe that had increased in size to 10.3 mm, previously 5 mm. PET was then completed on 08/07/24 which demonstrated single focus of abnormal hypermetabolism seen in a 1 cm nodule in the left lower lobe peripherally. 6 min walk test scheduled for 08/30/24. PFT's are scheduled on 08/31/24. Pt is a current smoker. Pt is here now for an evaluation. Past Medical History Past Medical History: Diagnosis Date Allergies Arthritis Carpal tunnel syndrome, right Past Surgical History Past Surgical History: Procedure Laterality Date HYSTERECTOMY 1995 Family History Family History Problem Relation Name Age of Onset Hypertension Mother Diabetes Mother Asthma Mother Ulcerative colitis Mother Arthritis Mother Coronary artery disease Father Heart attack Father Hypertension Father Heart disease Father Coronary artery disease Brother Heart disease Brother Hypertension Brother Heart attack Brother Social History Social History Tobacco Use Smoking status: Every Day Current packs/day: 1.00 Average packs/day: 1 pack/day for 42.3 years (42.3 ttl pk-yrs) Types: Cigarettes Start date: 1982 Smokeless tobacco: Never Substance Use Topics Alcohol use: Yes Comment: holidays/special occasions only Drug use: Never Allergies Allergies Allergen Reactions Penicillins Hives Codeine Hives Erythromycin Hives Medications Current Outpatient Medications: acetaminophen (Tylenol) 500 MG tablet, Take 1,000 mg by mouth 2 times daily., Disp: , Rfl: cetirizine (ZyrTEC) 10 MG tablet, Take 10 mg by mouth daily., Disp: , Rfl: DULoxetine (Cymbalta) [address] capsule, Take 60 mg by mouth daily. Do not crush or chew., Disp: , Rfl: Ergocalciferol (VITAMIN D2 PO), Take 1 tablet by mouth daily., Disp: , Rfl: folic acid (Folvite) 1 MG tablet, Take 2 mg by mouth daily., Disp: , Rfl: leucovorin (Wellcovorin) 15 MG tablet, Take 15 mg by mouth 1 (one) time per week. Take with a full glass of water., Disp: , Rfl: methotrexate 2.5 MG tablet, Take 20 mg by mouth 1 (one) time per week. Follow directions carefully, and ask to explain any part you do not understand. Take exactly as directed., Disp: , Rfl: predniSONE (Deltasone) 5 MG tablet, Take 5 mg by mouth Daily as needed., Disp: , Rfl: varenicline (Chantix) 0.5 MG tablet, Take 0.5 mg by mouth 2 times daily. Take with full glass of water., Disp: , Rfl: Review of Systems Review of Systems Constitutional: Negative. HENT: Negative. Eyes: Negative. Respiratory: Negative. Cardiovascular: Negative. Gastrointestinal: Negative. Endocrine: Negative. Genitourinary: Negative. Musculoskeletal: Negative. Skin: Negative. Allergic/Immunologic: Negative. Neurological: Negative. Hematological: Negative. Psychiatric/Behavioral: Negative. Physical Exam Vitals: BP (!) 136/90 (BP Location: Left arm, Patient Position: Sitting, BP Cuff Size: Large adult) Pulse 98 Ht 1.549 m (5' 1") Wt 80.7 kg (178 lb) BMI 33 (more content not included)... Normal [facility] Pulmonary Visit Reporton Pulmonary Visit Report [facility] [place] [address] [place] [address] OFFICE VISIT Date of Service: 08/17/24 MR#: [id number] Acct: [id number] Name: FOZIA BREEN Rep #: [id number] : 1960 Provider: LIZANDRO Lew Age/Sex: 63/F Location: [facility] [place] Status: Signed Assessment and Plan Assessment and Plan (1) Abnormal PET of left lung: Status: Acute Comment: Left lower lobe Plan: PET avid lesion in the left lower lobe. This is the only area that was PET positive. I am sending the patient to cardiothoracic surgery for evaluation and management. I believe that a VATS would be beneficial. She has been encouraged to call us with any difficulty in the meantime. Plan for a routine 6-month follow-up. I am going to order a 6-minute walk test and pulmonary function test to prepare the patient preoperatively. (2) Shortness of breath: Status: Acute Plan: Evaluating with a 6-minute walk test and pulmonary function tests. (3) Smoking greater than 20 pack years: Status: Chronic Plan: The patient reports that she has had some success with Chantix in the past. She realizes that she really needs to quit smoking". I have refilled a Chantix order. Orders: Orders PFT Complete - DLCO, Spirometry b/a bronchodilators, lung volumes 08/31/24 R06.02 - Shortness of breath Simple Pulmonary Exercise Test 08/30/24 R06.02 - Shortness of breath Referrals Cardiovascular/Thoracic Surgery R94.2 - Abnormal results of pulmonary function studies Medications: New varenicline tartrate (Chantix Starting Month Box) PO PER PKG DIR 53 tabs 0RF Plan Details Follow Up: 6 Months (CSM) HPI 2 wk fu Chief Complaint: Test results HPI Comments Details: This patient presents to the office today to discuss test results. She is ambulatory and currently on room air. She has not recently been seen in the ED or urgent care for any respiratory illness. She has not required any antibiotics or prednisone for any breathing problems. She reports shortness of breath on exertion. She has an occasional dry cough. She denies any sputum production or hemoptysis. She denies any wheezing, chest tightness, chest pain or palpitations. She has not had any fever, chills or body aches. The patient is not currently on any inhalers. She does smoke 1 1/2 packs/day. She does not have a rescue inhaler. She states that she had some success with Chantix in the past. Test results personally reviewed with the patient: PET/CT scan completed on August 07, 2024. Left peripheral lower lobe 1 cm lung base nodule is identified. Single focus of abnormal hypermetabolic-ism. 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 Accompanied by: Self Allergies Penicillins (PCN) Allergy (Severe, Verified 08/17/24 07:48) Hives codeine Allergy (Intermediate, Verified 08/17/24 07:48) Hives erythromycin base Allergy (Intermediate, Verified 08/17/24 07:48) Hives Medications ???Medication ???Instructions ???Recorded ???Confirmed ???Type acetaminophen 500 mg oral powder 1,000 mg PO BID 07/30/24 08/17/24 History packet (Tylenol Extra Strength) calcium carb-ergocalciferol (vit tab PO QDAY 07/30/24 08/17/24 Hist ory D2) 500 mg (1,250 mg)-200 unit tablet cetirizine 10 mg capsule (Zyrtec) 10 mg PO QDAY 07/30/24 08/17/24 H istory duloxetine 60 mg capsule,delayed 60 mg PO QDAY 07/30/24 08/17/24 Hi story release (Cymbalta) folic acid 1 mg tablet 2 mg PO QDAY 08/17/24 08/17/24 His tory leucovorin calcium 15 mg tablet 15 mg PO QWEEK 08/17/24 08/17/24 H istory methotrexate sodium 2.5 mg tablet 20 mg PO QWEEK 08/17/24 08/17/24 History prednisone 5 mg tablet 5 mg PO QDAY PRN 08/17/24 08/17/24 History varenicline tartrate 0.5 mg (11)-1 See Rx Instructions PO PER PKG D IR 08/17/24 08/17/24 Rx mg (42) tablets in a dose pack #53 tabs (Chantix Starting Month Box) PFSH Medical History Carpal tunnel syndrome on right Allergies Surgical History H/O hysterectomy with oophorectomy Family History Father , 45 years old CAD (coronary artery disease) Heart disease Myocardial infarction Hypertension Brother , 60 years old CAD (coronary artery disease) Heart disease Hy (more content not included)... Normal [facility] Positron emission tomography scan reportOrdered By: Ady Servin on 08-09-2024 PT Unspecified body region [facility] Imaging Services [address] [place] [address] PET/CT Tumor Base -Thigh Init MR#: [id number] Acct: [id number] Name: FOZIA BREEN Rep #: [id number] : 1960 F 63 From: Pet er Peer DO PCP: Dr. Emilie Wheatley MD Status: REG CLI Study:PET/CT Tumor Base -Thigh Init Date of E xam: 08/07/24 Exam# [id number] Ordering Dr: Mary Lew NP [employer] EXAM: PET-CT skull base to mid thigh. CLINICAL HISTORY: R91.1 solitary pulmonary nodule; R91.8 other nonspecific abnormal finding of lung field COMPARISON: None TECHNIQUE: Agent: F 18 fluorodeoxyglucose. Dose: 13.496 mCi Prior to the procedure, the blood glucose level was 69 mg/dL. CT images for attenuation correction and anatomic localization followed by PET images from the skull base through the mid thigh attained. Scans are available. Baseline study. FINDINGS: Neck: There is normal uptake within the soft tissues of the neck and glandular structures without focal areas of abnormal increased metabolism. Chest: Left peripheral lower lobe, 1 cm lung base nodule is identified. Take for this nodule 3. 4 SUV. Although worrisome for malignancy, anti-inflammatory lesion. Is this level of SUV. Abdomen/pelvis: There is normal distribution of the radiotracer within the gastrointestinal tract and genitourinary system, without focal areas of abnormal metabolism. No evidence of adenopathy. Musculoskeletal: Normal uptake within the osseous soft tissues throughout without focal areas of abnormal, embolism no evidence of adenopathy increased PET/PET/CT Tumor Base -Thigh Init IMPRESSION: 1. Single focus of abnormal hypermetabolism, seen in a 1 cm nodule in the left lower lobe peripherally. Reading Location[facility] CC: [employer] Angeline Lew; Dr. Emilie Wheatley MD ~ Transition Advisor: Signed [facility] PET/CT Tumor Base -Thigh Ini ton 08-07-2024 PET/CT Tumor Base -Thigh Init [facility] Imaging Services [address] [place] [address] PET/CT Tumor Base -Thigh Init MR#: [id number] Acct: [id number] Name: FOZIA BREEN Rep #: [id number] : 1960 F 63 From: Ady Servin DO PCP: Dr. Emilie Wheatley MD Status: REG CLI Study: PET/CT Tumor Base -Thigh Init Date of Exam: Exam# [id number] Ordering Dr: Angeline Lew NP [employer] EXAM: PET-CT skull base to mid thigh. CLINICAL HISTORY: R91.1 solitary pulmonary nodule; R91.8 other nonspecific abnormal finding of lung field COMPARISON: None TECHNIQUE: Agent: F 18 fluorodeoxyglucose. Dose: 13.496 mCi Prior to the procedure, the blood glucose level was 69 mg/dL. CT images for attenuation correction and anatomic localization followed by PET images from the skull base through the mid thigh attained. Scans are available. Baseline study. FINDINGS: Neck: There is normal uptake within the soft tissues of the neck and glandular structures without focal areas of abnormal increased metabolism. Chest: Left peripheral lower lobe, 1 cm lung base nodule is identified. Take for this nodule 3. 4 SUV. Although worrisome for malignancy, anti-inflammatory lesion. Is this level of SUV. Abdomen/pelvis: There is normal distribution of the radiotracer within the gastrointestinal tract and genitourinary system, without focal areas of abnormal metabolism. No evidence of adenopathy. Musculoskeletal: Normal uptake within the osseous soft tissues throughout without focal areas of abnormal, embolism no evidence of adenopathy increased PET/PET/CT Tumor Base -Thigh Init IMPRESSION: 1. Single focus of abnormal hypermetabolism, seen in a 1 cm nodule in the left lower lobe peripherally. Reading Location: [facility] CC: LIZANDRO Lew; Dr. Emilie Wheatley MD Transition Advisor: Signed [facility] Pulmonary Visit Reporton Pulmonary Visit Report [facility] [place] [address] [place] [address] OFFICE VISIT Date of Service: 07/30/24 MR#: [id number] Acct: [id number] Name: FOZIA BREEN Rep #: [id number] : 1960 Provider: LIZANDRO Lew Age/Sex: 63/F Location: [facility] [place] Status: Signed Assessment and Plan Assessment and Plan (1) Lung nodule: Status: Acute Comment: Left lower lobe imaging personally reviewed Plan: Deteriorated. This patient has a known nodule that previously measured 5 mm and is now greater than 1 cm. We discussed next step options, including CT tissue biopsy and PET scan. The patient had decided to proceed with a PET scan. She is aware that if the PET scan is positive we will be discussing tissue biopsy again. However, if PET scan is negative we will continue to monitor by repeating a CT of the chest in 3 months. She is agreeable with this plan. All questions were answered. (2) Smoking greater than 20 pack years: Status: Chronic Plan: Complicates exam, plan, care and prognosis. Encourage complete smoking cessation. (3) Allergies: Status: Chronic Qualifiers: Encounter type: subsequent encounter Qualified Code(s): T78.40XD - Allergy, unspecified, subsequent encounter Plan: Complicates exam, plan, care and prognosis. The patient currently has a cough which she believes is related to seasonal allergies. However, it is possible that the cough is related to some degree of COPD. We could discuss obtaining a pulmonary function test for clarification and quantification. Follow-up in 2 weeks. Orders: Orders PET/CT Tumor Base -Thigh Init Today R91.1 - Solitary pulmonary nodule, R91.8 - Other nonspecific abnormal finding of lung field Plan Details Additional Comments: This note was generated with [employer] dictation software. It may contain incorrect words, spelling, and punctuation that were not noted in checking the note before signing. Thank you for the referral and the opportunity to participate in this patient's care. Follow Up: 2 Weeks (CSM) HPI ABN LDCT Chief Complaint: Test results HPI Comments Details: This patient presents to the office today for initial consultation regarding concern for abnormal LDCT. She is ambulatory and currently on room air. She has not recently been seen in the ED or urgent care for any respiratory illness. She has not required any antibiotics or prednisone for any breathing problems. Currently she has some shortness of breath that she believes is related to being "60 pounds overweight". She has seasonal allergies. She has an occasional dry cough. She denies any sputum production or hemoptysis. She denies any wheezing, chest tightness, chest pain or palpitations. She has not had any fever, chills or body aches. The patient is not currently on any inhalers. She does smoke 1/2 pack/day. She does not have a rescue inhaler. The patient reports that she was previously on "allergy shots for 4 years". Ultimately, she was placed on an immune suppressant for her psoriatic arthritis and decided that she was not going to "be on an immune suppressant and try to boost her immune system at the same time". Past medical family history is significant for: Mother has chronic sinusitis and asthma. Father at the age of 45 secondary to myocardial infarction. He also had hypertension. Brother of heart disease and CHF at the age of 60. She has 3 children, oldest daughter has allergies and arthritis symptoms. Middle daughter is currently being monitored for possible breast cancer, she also has psoriasis and psoriatic arthritis. Son has mental health issues, gout and PTSD status post [employer]. Test results personally reviewed with the patient: Low-dose CT lung screening completed on July 18, 2024. Impression is: The previously seen nodular density in the peripheral lateral aspect of the left lower lobe has increased in size. This nodule measured 5 mm on March 30, 2022. It is presently measuring 10.3 mm. Follow-up is recommended with tissue biopsy or PET scan. 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 Normal [facility] Breast imaging reportOrdered By: Cookie Vallejo on 07-25-2024 Study report [facility] Imaging Services [address] [place], [place] [address] DIAG MAMM W/CAD, UNILAT MR#: [id number] Acct: [id number] Name: FOZIA BREEN Rep #: [id number] : 1960 F 63 From: Kera Vallejo MD PCP: Dr. Emilie Wheatley MD Status: REG CLI Study:DIAG MAMM W/CAD, UNILAT Date of Exam: 07/25/24 Exam# [id number] Ordering Dr: Viktoria Rubi sa DO PROCEDURE: DIAG MAMM W/CAD, UNILAT REASON FOR EXAM: F, Age 63 y/o, recall from screening mammogram for a left breast asymmetry visualized on the examination of 07/18/2024. Family history of breast cancer in maternal great aunt and her daughter. TECHNIQUE: Unilateral left digital breast tomosynthesis with 2D and 3D images. Computer aided detection. COMPARISON: 07/18/2024, 03/30/2022 FINDINGS: There are scattered areas of fibroglandular density. Follow-up examination performed for the asymmetry seen in the medial left breastat posterior depth on examination of 07/18/2024. On the present examination, the area previously in question in the central innerleft breast is marked with a chilkat skin marker and this area is consistent with a skin lesion. Otherwise, there are no suspicious findings in the left breast. BI/DIAG MAMM W/CAD, UNILAT IMPRESSION: The asymmetry in the left breast correlates to a benign skin lesion. There is no evidence of malignancy in the left breast. BI-RADS 2: BENIGN. RECOMMEND ANNUAL MAMMOGRAPHIC SCREENING. Follow-up code: Routine Follow-up The patient will be notified of the results by letter. Reading Location: [facility] CC: Dr. Emilie Wheatley MD; Dr. Chasity Rubi DO ~ Transition Advisor: Signed [facility] DIAG MAMM W/CAD, UNILATon DIAG MAMM W/CAD, UNILAT [facility] Imaging Services [address] [place], [place] [id number] DIAG MAMM W/CAD, UNILAT MR#: [id number] Acct: [id number] Name: FOZIA BREEN Rep #: [id number] : 1960 F 63 From: Cookie Vallejo MD PCP: Dr. Emilie Wheatley MD Status: REG CLI Study: DIAG MAMM W/CAD, UNILAT Date of Exam: 07/25/24 Exam# [id number] Ordering Dr: Chasity Rubi DO PROCEDURE: DIAG MAMM W/CAD, UNILAT REASON FOR EXAM: F, Age 63 y/o, recall from screening mammogram for a left breast asymmetry visualized on the examination of 07/18/2024. Family history of breast cancer in maternal great aunt and her daughter. TECHNIQUE: Unilateral left digital breast tomosynthesis with 2D and 3D images. Computer aided detection. COMPARISON: 07/18/2024, 03/30/2022 FINDINGS: There are scattered areas of fibroglandular density. Follow-up examination performed for the asymmetry seen in the medial left breast at posterior depth on examination of 07/18/2024. On the present examination, the area previously in question in the central inner left breast is marked with a chilkat skin marker and this area is consistent with a skin lesion. Otherwise, there are no suspicious findings in the left breast. BI/DIAG MAMM W/CAD, UNILAT IMPRESSION: The asymmetry in the left breast correlates to a benign skin lesion. There is no evidence of malignancy in the left breast. BI-RADS 2: BENIGN. RECOMMEND ANNUAL MAMMOGRAPHIC SCREENING. Follow-up code: Routine Follow-up The patient will be notified of the results by letter. Reading Location: [facility] CC: Dr. Emilie Wheatley MD; Dr. Chasity Rubi DO Transition Advisor: Signed [facility] Breast imaging reportOrdered By: Cookie Vallejo on 07-18-2024 Study report [facility] Imaging Services [address] [place], [place] [id number] SCRN MAMM (CAD)W/ROSA ELENA BILAT MR#: [id number] Acct: [id number] Name: JAMSHIDFOZIA A Rep #: [id number] : 1960 F 63 From: Kera Vallejo MD PCP: Dr. Emilie Wheatley MD Status: REG CLI Study:SCRN MAMM (CAD)W/ROSA ELENA BILAT Date of Exa m: 07/18/24 Exam# [id number] Ordering Dr: Viktoria Rubi sa, DO PROCEDURE: SCRN MAMM (CAD)W/ROSA ELENA BILAT REASON FOR EXAM: F, Age 63 y/o , SCREENING. Family history of breast cancer in her daughter and a maternal great aunt. TECHNIQUE: Bilateral screening digital breast tomosynthesis with 2D and 3D images. Computeraided detection. COMPARISON: 03/30/2022 FINDINGS: There are scattered areas of fibroglandular density. There is an asymmetry in the medial left breast at posterior depth visualized onthe CC view, this may be in the skin as it is in the first few slices on the tomosynthesis images. No suspicious masses, areas of developing architectural distortion, or suspicious calcifications in the right breast. BI/SCRN MAMM (CAD)W/ROSA ELENA BILAT IMPRESSION: Asymmetry in the medial left breast at posterior depth visualized on the CC viewrequires further evaluation. Recommend diagnostic mammogram of the left breast, and ultrasound if indicated on the day of diagnostic. BI-RADS 0: INCOMPLETE - NEED ADDITIONAL IMAGING EVALUATION. Follow-up code: Additional Views obtained/call backs The patient will be notified of the results by letter. Reading Location: [facility] CC: Dr. Emilie Wheatley MD; Dr. Chasity Rubi DO ~ Transition Advisor: Signed [facility] Low Dose CT Lung Screeningon 07-18-[address] Lung Screening [facility] Services [address] [place] [address] Lung Screening MR#: [id number] Acct: [id number] Name: FOZIA BREEN Rep #: [id number] : 1960 F 63 From: Jesu almonte MD PCP: Dr. Emilie Wheatley MD Status: [facility] Study: Low Dose CT Lung Screening Date of Exam: 07/18 Exam# [id number] Ordering Dr: Chasity Rubi DO PROCEDURE: LOW DOSE CT LUNG SCREENING REASON FOR EXAM: LUNG CANCER SCREENING Follow-up for left lower lobe lung nodule. Current smoker. 1-1/2 packs of cigarettes per day for 40 years. TECHNIQUE: Low Dose CT Lung Screening without contrast COMPARISON: Comparison is made with prior study dated March 30 2022. FINDINGS: PULMONARY NODULES: (Only nodules >6mm are reported) Nodules described below are on series 1 unless otherwise specified. Pulmonary Nodules: The previously seen nodular density in the peripheral lateral aspect of the left lower lobe has increased in size. It presently measures 10.3 mm. Further follow-up with biopsy and/or PET scan recommended. Stable linear scarring in the lingular segment of the left upper lobe. Hardware:None Lymph Nodes:No mediastinal hilar or axillary lymphadenopathy. Heart and Vasculature:Normal heart size. No pericardial effusion.Thoracic aorta and pulmonary arteries have normal contours; noncontrast technique limits evaluation. Coronary Artery Calcifications: Absent Lungs and Airways: Mild emphysematous changes are present. Pleura:No pleural effusion. No pneumothorax. Upper Abdomen:Visualized portions of the upper abdominal viscera are unremarkable. Bones:Degenerative changes of the thoracic spine. CT/Low Dose CT Lung Screening IMPRESSION: 1. BASED ON THE ACR LUNG RADS FOR THE MOST SUSPICIOUS NODULE (IF ANY) DESCRIBED IN THIS REPORT, THE OVERALL LUNG RADS SCORE IS 4B. 4B-VERY SUSPICIOUS. RECOMMEND DIAGNOSTIC CHEST CT; PET/CT MAY BE CONSIDERED IF >=8MM SOLID NODULE OR SOLID COMPONENT; TISSUE SAMPLING; AND/OR REFERRAL FOR CLINICAL EVALUATION. IF AIRWAY NODULE THEN REFER FOR CLINICAL EVALUATION. 2. SMOKING CESSATION COUNSELING IS RECOMMENDED IF THE PATIENT IS STILL SMOKING. 3. OTHER SIGNIFICANT FINDINGSNone. One or more dose reduction techniques were used (e.g., Automated exposure control, adjustment of the mA and/or kV according to patient size, use of iterative reconstruction technique). The following information is provided for reference:Lung-RADS 2022 Assessment Categories. Additional information involving Lung-RADS is available at www.acr.org. 0-INCOMPLETE 1-NEGATIVE:No nodules or definitely benign nodules. Complete, central, popcorn, or centric ring calcifications OR fat containing 2-BENIGN APPEARANCE (based on imaging features or indolent behavior). Juxtapleural nodule: < 10mm AND solid; smooth margins; oval, entiform, or triangular shape Solid nodule: <6mm at baseline or new< 4mm Part solid Nodule: < 6mm total mean diameter at baseline Nonsolid nodule:(GGN) < 30mm OR >=30mm stable or slowly growing Airway nodule, subsegmental at baseline, new, or stable Category 3 nodule stable or decreased in size at 6-month follow-up CT or Category 3 or 4A nodules that resolve on follow-up OR category 4B findings proven to be benign following diagnotic work up. 3 - Probably Benign (Based on imaging features or behavior) Solid Nodule: >= 6 to <8mm at baseline OR new 4 to <6mm Part-solid nodule: >= 6mm toal mean diam. with solid component <6mm at baseline OR new < 6mm total mean diam. Non-solid nodule: GGN >= 30mm at baseline or new Atypical pulmonary cyst: Growing cystic component (mean diam.) of thick-walled cyst Category 4A nodule stable or decreased in size at 3-month follow-up CT (excl.airway). 4A - Suspicious Solid nodule: >=8 to < 15mm at baseline OR growing < 8mm OR new 6 to < 8mm Part solid nodule: >= 6mm total mean diam. w/ solid component >=6mm to < 8mm at baseline OR new or growing < 4mm solid component Airway nodule, segmental or more proximal at baseline or new Atypical pulmonary cyst: Thick-walled OR multilocular at baseline OR becomes multilocular 4B - Very Suspicious Airway nodule, segmental or more proximal, and stable or growing Solid nodule: >= 15mm at baseline OR new or growing >= 8mm Part solid nodule: Solid component >= 8mm OR new or growing >= 4mm solid component Atypical pulmonary cyst: Thick-walled with growing wall thickness/nodularity OR Growing multilocular (mean diam.) OR Multilocular with increased loculation or new/increased opacity Slow-growing solid or part solid nodule w/ growth over multiple screening exams 4X - Very Suspicious Category 3 or 4 nodules with additional features that increase the suspicion for lung cancer. S - Clinically Significant or potentially significant findings (non-lung cancer) Electronical (more content not included)... Normal [facility] SCRN MAMM (CAD)W/ROSA ELENA BILATo n 07-18-2024 SCRN MAMM (CAD)W/ROSA ELENA BILAT [facility] Imaging Services [address] [place], [place] [id number] SCRN MAMM (CAD)W/ROSA ELENA BILAT MR#: [id number] Acct: [id number] Name: FOZIA BREEN Rep #: [id number] : 1960 F 63 From: Cookie Vallejo MD PCP: Dr. Emilie Wheatley MD Status: REG CLI Study: SCRN MAMM (CAD)W/ROSA ELENA BILAT Date of Exam: 07/07 07/03 Exam# [id number] Ordering Dr: Chasity Rubi DO PROCEDURE: SCRN MAMM (CAD)W/ROSA ELENA BILAT REASON FOR EXAM: F, Age 63 y/o , SCREENING. Family history of breast cancer in her daughter and a maternal great aunt. TECHNIQUE: Bilateral screening digital breast tomosynthesis with 2D and 3D images. Computer aided detection. COMPARISON: 03/30/2022 FINDINGS: There are scattered areas of fibroglandular density. There is an asymmetry in the medial left breast at posterior depth visualized on the CC view, this may be in the skin as it is in the first few slices on the tomosynthesis images. No suspicious masses, areas of developing architectural distortion, or suspicious calcifications in the right breast. BI/SCRN MAMM (CAD)W/ROSA ELENA BILAT IMPRESSION: Asymmetry in the medial left breast at posterior depth visualized on the CC view requires further evaluation. Recommend diagnostic mammogram of the left breast, and ultrasound if indicated on the day of diagnostic. BI-RADS 0: INCOMPLETE - NEED ADDITIONAL IMAGING EVALUATION. Follow-up code: Additional Views obtained/call backs The patient will be notified of the results by letter. Reading Location: [facility] CC: Dr. Emilie Wheatley MD; Dr. Chasity Rubi DO Transition Advisor: Signed Normal [facility] Quantiferon TB-Gold+on 06-09 QFT MITOGEN ROXY > 10.00 Normal . [facility] Comment on above: Performed By: #### L 100.0100, L500.4050, L3400.8000 #### [facility] [address] [place], [place], [id number] QFT NIL VALUE 0.04 IU/mL Normal . [facility] Comment on above: Performed By: #### L 100.0100, L500.4050, L3400.8000 #### [facility] [address] [place], [address] QFT TB GOLD+ Comment Normal . [facility] Comment on above: Result Comment: Chintan tiFERON-TB Gold Plus is a qualitative indirect test for M tuberculosis infection (including disease) and is intended for use in conjunction with risk assessment, radiography, and other medical and diagnostic evaluations. The QuantiFERON-TB Gold Plus result is determined by subtracting the Nil value from either TB antigen (Ag) value. The Mitogen tube serves as a control for the test. Performed By: #### L 100.0100, L500.4050, L3400.8000 #### [facility] [address] [place], [place], [id number] QFT TB POS CRIT Negative Normal Negative [facility] Comment on above: Result Comment: No r esponse to M tuberculosis antigens detected. Infection with M tuberculosis is unlikely, but high risk individuals should be considered for additional testing (ATS/IDSA/CDC Clinical Practice Guidelines, 2017). The reference range is an Antigen minus Nil result of <0.35 IU/mL. The specimen received for QuantiFERON testing was incubated by the ordering institution. Specific procedures outlined in our Directory of Services and in the package insert for the QuantiFERON Gold (In Tube) test must be followed to enable for proper stimulation of cells for the production of interferon gamma. Chemiluminescence immunoassay methodology Performed at: [facility] [id number] Professor Of Biochemistry: Haris Sheridan PhD, Phone: [phone] Performed By: #### L 100.0100, L500.4050, L3400.8000 #### [facility] [address] [place] [id number] QFT TB1+ AG ROXY 0.05 IU/mL Normal . [facility] Comment on above: Performed By: #### L 100.0100, L500.4050, L3400.8000 #### [facility] [address] [facility], [place], [id number] (349) QFT TB2+ AG ROXY 0.05 IU/mL Normal . [facility] Comment on above: Performed By: #### L 100.0100, L500.4050, L3400.8000 #### [facility] [address] [place], [address] Absolute neutrophil countOrd ered By: Maria A Carranza on 06-06-2024 Neutrophils (Bld) [#/Vol] 3.9 10*3/uL 2.0-7.7 [facility] Albumin to globulin ratioOrd ered By: Maria A Carranza on 06-06-2024 Albumin/Globulin [Mass ratio] 1.1 {ratio} 0.9-2.4 [facility] Basophil percentageOrdered B y: Maria A Carranza on 06-06-2024 Basophils/100 WBC (Bld) 0.7 % 0-1 [facility] Bilirubin, totalOrdered By: Maria Atammie Carranza on 06-06-2024 Bilirubin [Mass/Vol] 0.40 mg/dL 0.20-1.00 [facility] Comment on above: For patients on eltr ombopag therapy, use of Dimension [place] TBIL is not recommended. Blood urea nitrogen (BUN)/cr eatinine ratioOrdered By: Maria A Carranza on 06-06-2024 Urea nitrogen/Creatinine [Mass ratio] 20.4 mg/mg High 10-20 [facility] CBC W/Diff, Automatedon 05-10 Absolute Lymph 1.90 X10 3/uL Normal 0.83-4.51 [facility] Comment on above: Performed By: #### L 100.0100, L500.4050, L3400.8000 #### [facility] [address] [place], [address] Absolute Neut 3.9 X10 3/uL Normal 2.0-7.7 [facility] Comment on above: Performed By: #### L 100.0100, L500.4050, L3400.8000 #### [facility] [address] [place], [address] Basophils/100 WBC (Bld) 0.7 % Normal 0-1 [facility] Comment on above: Performed By: #### L 100.0100, L500.4050, L3400.8000 #### [facility] [address] [place], [address] Eosinophils/100 WBC (Bld) 2.8 % Normal 0-5 [facility] Comment on above: Performed By: #### L 100.0100, L500.4050, L3400.8000 #### [facility] [address] [place], [address] Erythrocyte distribution width (RBC) [Ratio] 13.8 % Normal 11.6-14.6 [facility] Comment on above: Performed By: #### L 100.0100, L500.4050, L3400.8000 #### [facility] [address] [place], [address] Hematocrit (Bld) [Volume fraction] 44.2 % Normal 37-47 [facility] Comment on above: Performed By: #### L 100.0100, L500.4050, L3400.8000 #### [facility] [address] [place], [address] Hemoglobin (Bld) [Mass/Vol] 14.3 g/dL Normal 12.0-15.0 [facility] Comment on above: Performed By: #### L 100.0100, L500.4050, L3400.8000 #### [facility] [address] [place], [address] IG% 0.300 Normal 0.0-0.9 [facility] Comment on above: Result Comment: IG% - Immature Granulocytes (promyelocytes, myelocytes and metamyelocytes) > 1% indicates that a LEFT SHIFT is Present. Performed By: #### L 100.0100, L500.4050, L3400.8000 #### [facility] [address] [place], [address] Lymphocytes/100 WBC (Bld) 28.4 % Normal 19-41 [facility] Comment on above: Performed By: #### L 100.0100, L500.4050, L3400.8000 #### [facility] [address] [place], [address] MCH (RBC) [Entitic mass] 29.9 pg Normal 27.0-32.0 [facility] Comment on above: Performed By: #### L 100.0100, L500.4050, L3400.8000 #### [facility] [address] [place], [address] MCHC (RBC) [Mass/Vol] 32.4 g/dL Normal 32-36 [facility] Comment on above: Performed By: #### L 100.0100, L500.4050, L3400.8000 #### [facility] [address] [place], [address] MCV (RBC) [Entitic vol] 92.3 fL Normal 81-99 [facility] Comment on above: Performed By: #### L 100.0100, L500.4050, L3400.8000 #### [facility] [address] [place], [address] Monocytes/100 WBC (Bld) 8.8 % Normal 0-10 [facility] Comment on above: Performed By: #### L 100.0100, L500.4050, L3400.8000 #### [facility] [address] [place], [address] Neutrophils/100 WBC (Bld) 59.0 % Normal 47-70 [facility] Comment on above: Performed By: #### L 100.0100, L500.4050, L3400.8000 #### [facility] [address] [place], [address] Nucleated RBC (Bld) [#/Vol] 0 10*3/uL Normal 0-5 [facility] Comment on above: Performed By: #### L 100.0100, L500.4050, L3400.8000 #### [facility] [address] [place], [address] Platelet mean volume (Bld) [Entitic vol] 11.1 fL Normal 6.2-12.0 [facility] Comment on above: Performed By: #### L 100.0100, L500.4050, L3400.8000 #### [facility] [address] [place], [address] Platelets (Bld) [#/Vol] 365 10*3/uL Normal 150-450 [facility] Comment on above: Performed By: #### L 100.0100, L500.4050, L3400.8000 #### [facility] [address] [place], [address] RBC (Bld) [#/Vol] 4.79 10*6/uL Normal 4.2-5.4 [facility] Comment on above: Performed By: #### L 100.0100, L500.4050, L3400.8000 #### [facility] [address] [place], [address] RDW SD 46.3 fl High 35.1-43.9 [facility] Comment on above: Performed By: #### L 100.0100, L500.4050, L3400.8000 #### [facility] [address] [place], [address] WBC (Bld) [#/Vol] 6.7 10*3/uL Normal 4.4-11.0 [facility] Comment on above: Performed By: #### L 100.0100, L500.4050, L3400.8000 #### [facility] [address] [place], [address] Carbon dioxide measurementOr dered By: Maria A Carranza on 06-06-2024 CO2 [Moles/Vol] 25.0 mmol/L 21.0-32.0 [facility] Chloride measurementOrdered By: Maria A Carranza on 06-06-2024 Chloride [Moles/Vol] 106 mmol/L 98-107 [facility] Comprehensive Metabolic Prof ilon 06-06-2024 Albumin [Mass/Vol] 3.7 g/dL Normal 3.2-5.0 [facility] Comment on above: Performed By: #### L 100.0100, L500.4050, L3400.8000 #### [facility] [address] [place], [address] Albumin/Globulin [Mass ratio] 1.1 {ratio} Normal 0.9-2.4 [facility] Comment on above: Performed By: #### L 100.0100, L500.4050, L3400.8000 #### [facility] [address] [place], [address] ALK P 152 U/L High 45-117 [facility] Comment on above: Performed By: #### L 100.0100, L500.4050, L3400.8000 #### [facility] [address] [place], [address] ALT [Catalytic activity/Vol] 26 U/L Normal 13-56 [facility] Comment on above: Performed By: #### L 100.0100, L500.4050, L3400.8000 #### [facility] [address] [place], [address] AST [Catalytic activity/Vol] 16 U/L Normal 15-37 [facility] Comment on above: Performed By: #### L 100.0100, L500.4050, L3400.8000 #### [facility] [address] [place], [address] Bilirubin [Mass/Vol] 0.40 mg/dL Normal 0.20-1.00 [facility] Comment on above: Result Comment: For patients on eltrombopag therapy, use of Dimension [place] TBIL is not recommended. Performed By: #### L 100.0100, L500.4050, L3400.8000 #### [facility] [address] [place], [address] BUN/CRE 20.4 RATIO High 10-20 [facility] Comment on above: Performed By: #### L 100.0100, L500.4050, L3400.8000 #### [facility] [address] [place], [address] CA,Total 9.8 mg/dL Normal 8.5-10.1 [facility] Comment on above: Performed By: #### L 100.0100, L500.4050, L3400.8000 #### [facility] [address] [place], [address] Chloride [Moles/Vol] 106 mmol/L Normal 98-107 [facility] Comment on above: Performed By: #### L 100.0100, L500.4050, L3400.8000 #### [facility] [address] [place], [address] CO2 [Moles/Vol] 25.0 mmol/L Normal 21.0-32.0 [facility] Comment on above: Performed By: #### L 100.0100, L500.4050, L3400.8000 #### [facility] [address] [place], [address] Creatinine [Mass/Vol] 0.83 mg/dL Normal 0.55-1.02 [facility] Comment on above: Result Comment: The validity of the calculated GFR GFRAA in patients over 70 years has not been determined. Clinical correlation is essential. Performed By: #### L 100.0100, L500.4050, L3400.8000 #### [facility] [address] [place], [address] EST GFR - AA 89 mL/min Normal >60 [facility] Comment on above: Result Comment: Afri can Bulgarian GFR Calc Performed By: #### L 100.0100, L500.4050, L3400.8000 #### [facility] [address] [place], [address] GAP 8 Normal 5-15 [facility] Comment on above: Performed By: #### L 100.0100, L500.4050, L3400.8000 #### [facility] [address] [place], [address] GFR/1.73 sq M.predicted among non-blacks MDRD (S/P/Bld) [Vol rate/Area] 74 mL/min/{1.73_m2} Normal >60 [facility] Comment on above: Result Comment: Non- GFR Calc Performed By: #### L 100.0100, L500.4050, L3400.8000 #### [facility] [address] [place], [address] Globulin (S) [Mass/Vol] 3.4 g/dL Normal 2.2-4.2 [facility] Comment on above: Performed By: #### L 100.0100, L500.4050, L3400.8000 #### [facility] [address] [place], [address] Glucose [Mass/Vol] 89 mg/dL Normal 74-106 [facility] Comment on above: Performed By: #### L 100.0100, L500.4050, L3400.8000 #### [facility] [address] [place], [address] Potassium [Moles/Vol] 4.7 mmol/L Normal 3.5-5.1 [facility] Comment on above: Performed By: #### L 100.0100, L500.4050, L3400.8000 #### [facility] [address] [place], [address] Sodium [Moles/Vol] 139 mmol/L Normal 136-145 [facility] Comment on above: Performed By: #### L 100.0100, L500.4050, L3400.8000 #### [facility] [address] [place], [address] T PROT 7.1 g/dL Normal 6.4-8.2 [facility] Comment on above: Performed By: #### L 100.0100, L500.4050, L3400.8000 #### [facility] [address] [place], [address] Urea nitrogen [Mass/Vol] 17 mg/dL Normal 7-18 [facility] Comment on above: Performed By: #### L 100.0100, L500.4050, L3400.8000 #### [facility] [address] [place], [address] Eosinophil percentageOrdered By: Maria A Carranza on 06-06-2024 Eosinophils/100 WBC (Bld) 2.8 % 0-5 [facility] Erythrocyte distribution wid th ratioOrdered By: Maria A Carranza on 06-06-2024 Erythrocyte distribution width (RBC) [Ratio] 13.8 % 11.6-14.6 [facility] Erythrocyte distribution wid th standard deviationOrdered By: Maria A Carranza on 06-06-2024 Erythrocyte distribution width (RBC) [Entitic vol] 46.3 fL High 35.1-43.9 [facility] Estimated glomerular filtrat ion rate (GFR) AmericanOrdered By: Maria A Carranza on 06-06-2024 Estimated GFR (MDRD) Amer 89 mL/min >60 [facility] Comment on above: GFR Calc Glomerular filtration rate ( GFR) estimationOrdered By: Maria A Carranza on 06-06-2024 Estimated GFR (MDRD) Non-Af Amer 74 mL/min >60 [facility] Comment on above: Non- GFR Calc Glucose measurementOrdered B y: Maria A Carranza on 06-06-2024 Glucose [Mass/Vol] 89 mg/dL 74-106 [facility] Hematocrit Auto (Bld) [Volum e fraction]Ordered By: Maria A Carranza on 06-06-2024 Hematocrit (Bld) [Volume fraction] 44.2 % 37-47 [facility] Hemoglobin measurementOrdere d By: Maria A Carranza on 06-06-2024 Hemoglobin (Bld) [Mass/Vol] 14.3 g/dL 12.0-15.0 [facility] Immature granulocytes/100 WB C Auto (Bld)Ordered By: Maria A Carranza on 06-06-2024 Immature granulocytes/100 WBC (Bld) 0.300 % 0.0-0.9 [facility] Comment on above: IG% - Immature Granu locytes (promyelocytes, myelocytes and metamyelocytes) > 1% indicates that a LEFT SHIFT is Present. Laboratory - Chemistry and C hemistry - challengeOrdered By: Maria A Carranza on 06-06-2024 AST [Catalytic activity/Vol] 16 U/L 15-37 [facility] Lymphocytes Auto (Unsp spec) [#/Vol]Ordered By: Maria A Carranza on 06-06-2024 Lymphocytes (Bld) [#/Vol] 1.90 10*3/uL 0.83-4.51 [facility] Lymphocytes/100 WBC Auto (Un sp spec)Ordered By: Maria A Carranza on 06-06-2024 Lymphocytes/100 WBC (Bld) 28.4 % 19-41 [facility] M. tuberculosis tuberculin s jm IFN-g Ql (Bld)Ordered By: Maria A Carranza on 06-06-2024 TB Test (QFT) Antigen 1 0.05 IU/mL . [facility] MCV (mean corpuscular volume ) determinationOrdered By: Maria A Carranza on 06-06-2024 MCV (RBC) [Entitic vol] 92.3 fL 81-99 [facility] Mean corpuscular hemoglobin (MCH) determinationOrdered By: Maria A Carranza on 06-06-2024 MCH (RBC) [Entitic mass] 29.9 pg 27.0-32.0 [facility] Mean corpuscular hemoglobin concentration (MCHC) determinationOrdered By: Maria A Carranza on 06-06-2024 MCHC (RBC) [Mass/Vol] 32.4 g/dL 32-36 [facility] Mean platelet volume determi nationOrdered By: Maria A Carranza on 06-06-2024 Platelet mean volume (Bld) [Entitic vol] 11.1 fL 6.2-12.0 [facility] Monocyte percentageOrdered B y: Maria A Carranza on 06-06-2024 Monocytes/100 WBC (Bld) 8.8 % 0-10 [facility] Neutrophil percentageOrdered By: Maria A Carranza on 06-06-2024 Neutrophils/100 WBC (Bld) 59.0 % 47-70 [facility] Nucleated red blood cell per centageOrdered By: Maria A Carranza on 06-06-2024 Nucleated RBC/100 WBC (Bld) [Ratio] 0 % 0-5 [facility] Platelet countOrdered By: Adalid Carranza on 06-06-2024 Platelets (Bld) [#/Vol] 365 10*3/uL 150-450 [facility] Potassium measurementOrdered By: Maria A Carranza on 06-06-2024 Potassium [Moles/Vol] 4.7 mmol/L 3.5-5.1 [facility] Quantiferon-TB Gold Plus tania tOrdered By: Maria A Carranza on 06-06-2024 TB Test (QFT) Comment . [facility] Comment on above: QuantiFERON-TB Gold Plus is a qualitative indirect test forM tuberculosis infection (including disease) and isintended for use in conjunction with risk assessment,radiography, and other medical and diagnostic evaluations.The QuantiFERON-TB Gold Plus result is determined bysubtracting the Nil value from either TB antigen (Ag)value. The Mitogen tube serves as a control for the test. TB Test (QFT) Antigen 2 0.05 IU/mL . [facility] TB Test (QFT) Mitogen > 10.00 IU/mL . [facility] TB Test (QFT) Nil 0.04 IU/mL . [facility] TB Test (QFT) Positive Criteria Negative Negative [facility] Comment on above: No response to M tub erculosis antigens detected.Infection with M tuberculosis is unlikely, but high riskindividuals should be considered for additional testing(ATS/IDSA/CDC Clinical Practice Guidelines, 2017). Thereference range is an Antigen minus Nil result of <0.35IU/mL.The specimen received for QuantiFERON testing was incubatedby the ordering institution. Specific procedures outlinedin our Directory of Services and in the package insert forthe QuantiFERON Gold (In Tube) test must be followed toenable for proper stimulation of cells for the productionof interferon gamma. Chemiluminescence immunoassaymethodologyPerformed at: [facility] [id number] Director: Haris Sheridan PhD, Phone: [phone] RBC Auto (Bld) [#/Vol]Ordere d By: Maria A Carranza on 06-06-2024 RBC (Bld) [#/Vol] 4.79 10*6/uL 4.2-5.4 [facility] Serum anion gap measurementO rdered By: Maria A Carranza on 06-06-2024 Anion gap [Moles/Vol] 8 mmol/L 5-15 [facility] Serum globulin measurementOr dered By: Maria A Carranza on 06-06-2024 Globulin (S) [Mass/Vol] 3.4 g/dL 2.2-4.2 [facility] Serum or plasma alanine bennett otransferase (ALT) measurementOrdered By: Maria A Carranza on 06-06-2024 ALT [Catalytic activity/Vol] 26 U/L 13-56 [facility] Serum or plasma albumin kylah urement (mass/volume)Ordered By: Maria A Carranza on 06-06-2024 Albumin [Mass/Vol] 3.7 g/dL 3.2-5.0 [facility] Serum or plasma alkaline asmita sphatase measurementOrdered By: Maria A Carranza on 06-06-2024 ALP [Catalytic activity/Vol] 152 U/L High 45-117 [facility] Serum or plasma calcium kylah urement (mass/volume)Ordered By: Maria A Carranza on 06-06-2024 Calcium [Mass/Vol] 9.8 mg/dL 8.5-10.1 [facility] Serum or plasma creatinine m easurement (mass/volume)Ordered By: Maria A Carranza on 06-06-2024 Creatinine [Mass/Vol] 0.83 mg/dL 0.55-1.02 [facility] Comment on above: The validity of the calculated GFR & GFRAA in patients over 70 years has not been determined. Clinical correlation is essential. Serum or plasma urea nitroge n measurement (mass/volume)Ordered By: Maria A Carranza on 06-06-2024 Urea nitrogen [Mass/Vol] 17 mg/dL 7-18 [facility] Sodium levelOrdered By: Jing Carranza on 06-06-2024 Sodium [Moles/Vol] 139 mmol/L 136-145 [facility] Total proteinOrdered By: Jana Carranza on 06-06-2024 Protein [Mass/Vol] 7.1 g/dL 6.4-8.2 [facility] White blood cell (WBC) count Ordered By: Maria A Carranza on 06-06-2024 WBC (Bld) [#/Vol] 6.7 10*3/uL 4.4-11.0 [facility] PT D/C Summary (1)on [facility] PT D/C Summary (1) [facility] [place] [address] / REHABILITATION SERVICES DISCHARGE SUMMARY MR#: [id number] Acct: [id number] Name: FOZIA BREEN Rep #: [id number] : 1960 63 From: Andrea Garcia PT, Cert. T, OCS Referring DrDidier: Dr. Maria A Carranza MD Status: R EG RCR Insurance: [employer] SELF PAY INSURANCE Discharge Summary D/C summary: It has been my pleasure to treat FOZIA BREEN referred by Dr. Maria A Carranza MD, with the diagnosis of PSORIATIC ARTHROPATHY , FIBROMYALGIA for a total of 9 visit(s). Discharge Date: Please see the following information for a summary of their discharge status. Subjective Subjective: Plan to see DR MORALES not really helping Pain Bilateral Back: Pain Intensity (Out of 10): 5 Bilateral Hip: Pain Intensity (Out of 10): 5 Right Shoulder: Pain Intensity (Out of 10): 5 Left Knee: Pain Intensity (Out of 10): 5 Overall Improvement % Improvement: 20 Objective Objective/Function: POSTURE: mild forewarn posture GAIT: reciprocal pattern mild antalgic gait NEURO: denies paresthesia/tingling PALPATION: global tenderness ,IT band AROM: BUE FLEXABILITY: hamstrings min tight LUMBAR ROM: flexion min/mod loss ,extension mod loss ,side glides min/mod loss MMT: ( peak force) hip flexion right 15,3,left 15.2 ,quads right 29.7 ,left 28..7 ,hamstrings left 12.8,right 23.2 ,shoulders 8.9 ,right ,left 9.9 Hip abductors right 10.1 ,left 9.8 Goals Goal 1:: Patient to be I with HEP Goal Progress: Goal Met Goal 2:: Patient to demonstrate 40% improvement with less pain and improved function Goal Progress: Progressing Goal 3:: Patient to improve LFES score by 5 points to improve function and ADLS /QOL. Goal Progress: Progressing Goal 4:: Patient to improve peak force quads/hams/hips and shoulders by 5-10# to improve function and less pain Goal Progress: Progressing Plan Plan: RTD -D/C D/C Information d/c sentence: If there are questions or concerns regarding this patient's physical therapy, please feel free to call me at [phone]. Thank you for the referral of this patient. Sincerely, Andrea Garcia, PT, Cert MDT, OCS Balance/Gait/Functional tests Balance/Special Test Scores Lower Extremity Functional Score: 30 Improvement % Improvement: 20 04/17/24 1604 CC: Dr. Chasity Rubi DO; Dr. Maria A Carranza MD JLA Signed Normal [facility] Absolute neutrophil countOrd ered By: Maria A Carranza on 04-03-2024 Neutrophils (Bld) [#/Vol] 4.4 10*3/uL 2.0-7.7 [facility] Albumin to globulin ratioOrd ered By: Maria A Carranza on 04-03-2024 Albumin/Globulin [Mass ratio] 1.2 {ratio} 0.9-2.4 [facility] Basophil percentageOrdered B y: Maria A Carranza on 04-03-2024 Basophils/100 WBC (Bld) 0.9 % 0-1 [facility] Bilirubin, totalOrdered By: Maria A Carranza on 04-03-2024 Bilirubin [Mass/Vol] 0.40 mg/dL 0.20-1.00 [facility] Comment on above: For patients on eltr ombopag therapy, use of Dimension [place] TBIL is not recommended. Blood urea nitrogen (BUN)/cr eatinine ratioOrdered By: Maria A Carranza on 04-03-2024 Urea nitrogen/Creatinine [Mass ratio] 21.7 mg/mg High 02-25 [facility] CBC W/Diff, Automatedon 03-10 Absolute Lymph 1.75 X10 3/uL Normal 0.83-4.51 [facility] Comment on above: Performed By: #### L 100.0100, L500.4050 ####[facility] [address] [place], [address] Absolute Neut 4.4 X10 3/uL Normal 2.0-7.7 [facility] Comment on above: Performed By: #### L 100.0100, L500.4050 ####[facility] [address] [place], [address] Basophils/100 WBC (Bld) 0.9 % Normal 0-1 [facility] Comment on above: Performed By: #### L 100.0100, L500.4050 ####[facility] [address] [place], [address] Eosinophils/100 WBC (Bld) 3.4 % Normal 0-5 [facility] Comment on above: Performed By: #### L 100.0100, L500.4050 ####[facility] [address] [place], [address] Erythrocyte distribution width (RBC) [Ratio] 13.3 % Normal 11.6-14.6 [facility] Comment on above: Performed By: #### L 100.0100, L500.4050 ####[facility] [address] [place], [address] Hematocrit (Bld) [Volume fraction] 44.6 % Normal 37-47 [facility] Comment on above: Performed By: #### L 100.0100, L500.4050 ####[facility] [address] [place], [address] Hemoglobin (Bld) [Mass/Vol] 13.8 g/dL Normal 12.0-15.0 [facility] Comment on above: Performed By: #### L 100.0100, L500.4050 ####[facility] [address] [place], [address] IG% 0.300 Normal 0.0-0.9 [facility] Comment on above: Result Comment: IG% - Immature Granulocytes (promyelocytes, myelocytes and metamyelocytes) > 1% indicates that a LEFT SHIFT is Present. Performed By: #### L 100.0100, L500.4050 ####[facility] [address] [place], [address] Lymphocytes/100 WBC (Bld) 24.9 % Normal 19-41 [facility] Comment on above: Performed By: #### L 100.0100, L500.4050 ####[facility] [address] [place], [address] MCH (RBC) [Entitic mass] 29.2 pg Normal 27.0-32.0 [facility] Comment on above: Performed By: #### L 100.0100, L500.4050 ####[facility] [address] [place], [address] MCHC (RBC) [Mass/Vol] 30.9 g/dL Low 32-36 [facility] Comment on above: Performed By: #### L 100.0100, L500.4050 ####[facility] [address] [place], [address] MCV (RBC) [Entitic vol] 94.3 fL Normal 81-99 [facility] Comment on above: Performed By: #### L 100.0100, L500.4050 ####[facility] [address] [place], [address] Monocytes/100 WBC (Bld) 8.7 % Normal 0-10 [facility] Comment on above: Performed By: #### L 100.0100, L500.4050 ####[facility] [address] [place], [address] Neutrophils/100 WBC (Bld) 61.8 % Normal 47-70 [facility] Comment on above: Performed By: #### L 100.0100, L500.4050 ####[facility] [address] [place], [address] Nucleated RBC (Bld) [#/Vol] 0 10*3/uL Normal 0-5 [facility] Comment on above: Performed By: #### L 100.0100, L500.4050 ####[facility] [address] [place], [address] Platelet mean volume (Bld) [Entitic vol] 11.8 fL Normal 6.2-12.0 [facility] Comment on above: Performed By: #### L 100.0100, L500.4050 ####[facility] [address] [place], [address] Platelets (Bld) [#/Vol] 343 10*3/uL Normal 150-450 [facility] Comment on above: Performed By: #### L 100.0100, L500.4050 ####[facility] [address] [place], [address] RBC (Bld) [#/Vol] 4.73 10*6/uL Normal 4.2-5.4 [facility] Comment on above: Performed By: #### L 100.0100, L500.4050 ####[facility] [address] [place], [address] RDW SD 45.8 fl High 35.1-43.9 [facility] Comment on above: Performed By: #### L 100.0100, L500.4050 ####[facility] [address] [place], [address] WBC (Bld) [#/Vol] 7.0 10*3/uL Normal 4.4-11.0 [facility] Comment on above: Performed By: #### L 100.0100, L500.4050 ####[facility] [address] [place], [address] Carbon dioxide measurementOr dered By: Maria A Carranza on 04-03-2024 CO2 [Moles/Vol] 28.0 mmol/L 21.0-32.0 [facility] Chloride measurementOrdered By: Maria A Carranza on 04-03-2024 Chloride [Moles/Vol] 105 mmol/L 98-107 [facility] Comprehensive Metabolic Prof ilon 04-03-2024 Albumin [Mass/Vol] 3.9 g/dL Normal 3.2-5.0 [facility] Comment on above: Performed By: #### L 100.0100, L500.4050 ####[facility] [address] [place], [address] Albumin/Globulin [Mass ratio] 1.2 {ratio} Normal 0.9-2.4 [facility] Comment on above: Performed By: #### L 100.0100, L500.4050 ####[facility] [address] [place], [address] ALK P 154 U/L High 45-117 [facility] Comment on above: Performed By: #### L 100.0100, L500.4050 ####[facility] [address] [place], [address] ALT [Catalytic activity/Vol] 36 U/L Normal 13-56 [facility] Comment on above: Performed By: #### L 100.0100, L500.4050 ####[facility] [address] [place], [address] AST [Catalytic activity/Vol] 23 U/L Normal 15-37 [facility] Comment on above: Performed By: #### L 100.0100, L500.4050 ####[facility] [address] [place], [address] Bilirubin [Mass/Vol] 0.40 mg/dL Normal 0.20-1.00 [facility] Comment on above: Result Comment: For patients on eltrombopag therapy, use of Dimension [place] TBIL is not recommended. Performed By: #### L 100.0100, L500.4050 ####[facility] [address] [place], [address] BUN/CRE 21.7 RATIO High 10-20 [facility] Comment on above: Performed By: #### L 100.0100, L500.4050 ####[facility] [address] [place], [address] CA,Total 9.7 mg/dL Normal 8.5-10.1 [facility] Comment on above: Performed By: #### L 100.0100, L500.4050 ####[facility] [address] [place], [address] Chloride [Moles/Vol] 105 mmol/L Normal 98-107 [facility] Comment on above: Performed By: #### L 100.0100, L500.4050 ####[facility] [address] [place], [address] CO2 [Moles/Vol] 28.0 mmol/L Normal 21.0-32.0 [facility] Comment on above: Performed By: #### L 100.0100, L500.4050 ####[facility] [address] [place], [address] Creatinine [Mass/Vol] 0.78 mg/dL Normal 0.55-1.02 [facility] Comment on above: Result Comment: The validity of the calculated GFR GFRAA in patients over 70 years has not been determined. Clinical correlation is essential. Performed By: #### L 100.0100, L500.4050 ####[facility] [address] [place], [address] EST GFR - AA 96 mL/min Normal >60 [facility] Comment on above: Result Comment: Afri can Bulgarian GFR Calc Performed By: #### L 100.0100, L500.4050 ####[facility] [address] [place], [address] GAP 7 Normal 5-15 [facility] Comment on above: Performed By: #### L 100.0100, L500.4050 ####[facility] [address] [place], [address] GFR/1.73 sq M.predicted among non-blacks MDRD (S/P/Bld) [Vol rate/Area] 79 mL/min/{1.73_m2} Normal >60 [facility] Comment on above: Result Comment: Non- GFR Calc Performed By: #### L 100.0100, L500.4050 ####[facility] [address] [place], [address] Globulin (S) [Mass/Vol] 3.2 g/dL Normal 2.2-4.2 [facility] Comment on above: Performed By: #### L 100.0100, L500.4050 ####[facility] [address] [place], [address] Glucose [Mass/Vol] 79 mg/dL Normal 74-106 [facility] Comment on above: Performed By: #### L 100.0100, L500.4050 ####[facility] [address] [place], [address] Potassium [Moles/Vol] 4.0 mmol/L Normal 3.5-5.1 [facility] Comment on above: Performed By: #### L 100.0100, L500.4050 ####[facility] [address] [place], [address] Sodium [Moles/Vol] 139 mmol/L Normal 136-145 [facility] Comment on above: Performed By: #### L 100.0100, L500.4050 ####[facility] [address] [place], [address] T PROT 7.1 g/dL Normal 6.4-8.2 [facility] Comment on above: Performed By: #### L 100.0100, L500.4050 ####[facility] [address] [place], [address] Urea nitrogen [Mass/Vol] 17 mg/dL Normal 7-18 [facility] Comment on above: Performed By: #### L 100.0100, L500.4050 ####[facility] [address] [place], [address] Eosinophil percentageOrdered By: Maria A Carranza on 04-03-2024 Eosinophils/100 WBC (Bld) 3.4 % 0-5 [facility] Erythrocyte distribution wid th ratioOrdered By: Maria A Carranza on 04-03-2024 Erythrocyte distribution width (RBC) [Ratio] 13.3 % 11.6-14.6 [facility] Erythrocyte distribution wid th standard deviationOrdered By: Maria A Carranza on 04-03-2024 Erythrocyte distribution width (RBC) [Entitic vol] 45.8 fL High 35.1-43.9 [facility] Estimated glomerular filtrat ion rate (GFR) AmericanOrdered By: Maria A Carranza on 04-03-2024 Estimated GFR (MDRD) Amer 96 mL/min >60 [facility] Comment on above: GFR Calc Glomerular filtration rate ( GFR) estimationOrdered By: Maria A Carranza on 04-03-2024 Estimated GFR (MDRD) Non-Af Amer 79 mL/min >60 [facility] Comment on above: Non- GFR Calc Glucose measurementOrdered B y: Maria A Carranza on 04-03-2024 Glucose [Mass/Vol] 79 mg/dL 74-106 [facility] Hematocrit Auto (Bld) [Volum e fraction]Ordered By: Maria A Carranza on 04-03-2024 Hematocrit (Bld) [Volume fraction] 44.6 % 37-47 [facility] Hemoglobin measurementOrdere d By: Maria A Carranza on 04-03-2024 Hemoglobin (Bld) [Mass/Vol] 13.8 g/dL 12.0-15.0 [facility] Immature granulocytes/100 WB C Auto (Bld)Ordered By: Maria A Carranza on 04-03-2024 Immature granulocytes/100 WBC (Bld) 0.300 % 0.0-0.9 [facility] Comment on above: IG% - Immature Granu locytes (promyelocytes, myelocytes and metamyelocytes) > 1% indicates that a LEFT SHIFT is Present. Laboratory - Chemistry and C hemistry - challengeOrdered By: Maria A Carranza on 04-03-2024 AST [Catalytic activity/Vol] 23 U/L 15-37 [facility] Lymphocytes Auto (Unsp spec) [#/Vol]Ordered By: Maria A Carranza on 04-03-2024 Lymphocytes (Bld) [#/Vol] 1.75 10*3/uL 0.83-4.51 [facility] Lymphocytes/100 WBC Auto (Un sp spec)Ordered By: Maria A Carranza on 04-03-2024 Lymphocytes/100 WBC (Bld) 24.9 % 19-41 [facility] MCV (mean corpuscular volume ) determinationOrdered By: Maria A Carranza on 04-03-2024 MCV (RBC) [Entitic vol] 94.3 fL 81-99 [facility] Mean corpuscular hemoglobin (MCH) determinationOrdered By: Maria A Carranza on 04-03-2024 MCH (RBC) [Entitic mass] 29.2 pg 27.0-32.0 [facility] Mean corpuscular hemoglobin concentration (MCHC) determinationOrdered By: Maria A Carranza on 04-03-2024 MCHC (RBC) [Mass/Vol] 30.9 g/dL Low 32-36 [facility] Mean platelet volume determi nationOrdered By: Maria A Carranza on 04-03-2024 Platelet mean volume (Bld) [Entitic vol] 11.8 fL 6.2-12.0 [facility] Monocyte percentageOrdered B y: Maria A Carranza on 04-03-2024 Monocytes/100 WBC (Bld) 8.7 % 0-10 [facility] Neutrophil percentageOrdered By: Maria A Carranza on 04-03-2024 Neutrophils/100 WBC (Bld) 61.8 % 47-70 [facility] Nucleated red blood cell per centageOrdered By: Maria A Carranza on 04-03-2024 Nucleated RBC/100 WBC (Bld) [Ratio] 0 % 0-5 [facility] Platelet countOrdered By: Adalid Carranza on 04-03-2024 Platelets (Bld) [#/Vol] 343 10*3/uL 150-450 [facility] Potassium measurementOrdered By: Maria A Carranza on 04-03-2024 Potassium [Moles/Vol] 4.0 mmol/L 3.5-5.1 [facility] RBC Auto (Bld) [#/Vol]Ordere d By: Maria A Carranza on 04-03-2024 RBC (Bld) [#/Vol] 4.73 10*6/uL 4.2-5.4 [facility] Serum anion gap measurementO rdered By: Maria A Carranza on 04-03-2024 Anion gap [Moles/Vol] 7 mmol/L 5-15 [facility] Serum globulin measurementOr dered By: Maria A Carranza on 04-03-2024 Globulin (S) [Mass/Vol] 3.2 g/dL 2.2-4.2 [facility] Serum or plasma alanine bennett otransferase (ALT) measurementOrdered By: Maria A Carranza on 04-03-2024 ALT [Catalytic activity/Vol] 36 U/L 13-56 [facility] Serum or plasma albumin kylah urement (mass/volume)Ordered By: Maria A Carranza on 04-03-2024 Albumin [Mass/Vol] 3.9 g/dL 3.2-5.0 [facility] Serum or plasma alkaline asmita sphatase measurementOrdered By: Maria A Carranza on 04-03-2024 ALP [Catalytic activity/Vol] 154 U/L High 45-117 [facility] Serum or plasma calcium kylah urement (mass/volume)Ordered By: Maria A Carranza on 04-03-2024 Calcium [Mass/Vol] 9.7 mg/dL 8.5-10.1 [facility] Serum or plasma creatinine m easurement (mass/volume)Ordered By: Maria A Carranza on 04-03-2024 Creatinine [Mass/Vol] 0.78 mg/dL 0.55-1.02 [facility] Comment on above: The validity of the calculated GFR & GFRAA in patients over 70 years has not been determined. Clinical correlation is essential. Serum or plasma urea nitroge n measurement (mass/volume)Ordered By: Maria A Carranza on 04-03-2024 Urea nitrogen [Mass/Vol] 17 mg/dL 7-18 [facility] Sodium levelOrdered By: Jing Carranza on 04-03-2024 Sodium [Moles/Vol] 139 mmol/L 136-145 [facility] Total proteinOrdered By: Jana Carranza on 04-03-2024 Protein [Mass/Vol] 7.1 g/dL 6.4-8.2 [facility] White blood cell (WBC) count Ordered By: Maria A Carranza on 04-03-2024 WBC (Bld) [#/Vol] 7.0 10*3/uL 4.4-11.0 [facility] Inital Evaluation (1) - PTon 03-06-2024 Inital Evaluation (1) - PT [facility] Physical Therapy [facility] [place] [address] / REHABILITATION SERVICES INITIAL EVALUATION MR#: [id number] Acct: [id number] Name: OFZIA BREEN Rep #: [id number] : 1960 63 From: Nate Jane PT. T, OCS Referring Dr.: Dr. Maria A Carranza MD Status: R EG RCR Insurance: [employer]NA SELF PAY INSURANCE Patient's Visit Information Visit Information Visit Information: FOZIA BREEN is a 63 year old F referred to Physical Therapy by Dr. Maria A Carranza MD with a diagnosis of PSORIATIC ARTHROPATHY , FIBROMYALGIA. Date of Evaluation: 03/06/24 Physical Therapist: Andrea Garcia PT, Nate PETTYT, OCS Visit Plan Frequency: 2x /Week Duration: 4 Weeks Plan: PT INTERVENTIONS GRADED STRENGTHENING QUADS/HAMS/HIP ,FUNCTIONAL STRENGTHENING ,DLS ,POSTURAL EX'S AND UE STRENGTHENING Subjective Subjective: This 63 y/o female presents to physical therapy with generalized pain. Patient has fibromyalgia and psoriatic arthritis for many years. Patient seen DR flynn PT. Patient has medication prednisone as needed ,methotrexate 1x /week ,tramadol. Patient pain located bilateral lateral hips ,shoulders and left knee and constant back pain. Pain generalized described as ache and occasional stabbing pain. Aggravating factors generalized activities job demands and housework tasks. Stairs make symptoms worse. Alleviating rest and heat. Symptoms worse in the morning. Patient pain affects sleeping. Patient denies paresthesia/tingling. No prior PT. Patient condition affects QOL and function. Patient goals to make ADLS pain less. SOCIAL: VOCATION: [employer] [facility] Pain Bilateral Back: Pain Intensity (Out of 10): 5 Bilateral Hip: Pain Intensity (Out of 10): 7 Right Shoulder: Pain Intensity (Out of 10): 6 Left Knee: Pain Intensity (Out of 10): 3 Objective Objective: POSTURE: mild forewarn posture GAIT: reciprocal pattern mild antalgic gait NEURO: denies paresthesia/tingling PALPATION: global tenderness ,IT band AROM: BUE FLEXABILITY: hamstrings min tight LUMBAR ROM: flexion min/mod loss ,extension mod loss ,side glides min/mod loss MMT: ( peak force) hip flexion right 12,3,left 14.2 ,quads right 14.7 ,left 15.7 ,hamstrings left 12.2,right 10.2 ,shoulders 5.9 ,right ,left 4.9 Hip abductors right 10.1 ,left 9.8 Special Tests L/S Slump test left side: Negative L/S Slump test right side: Negative L/S Left Straight Leg Raise: Negative L/S Right Straight Leg Raise: Negative R Hip Scour: Negative L Hip Scour: Negative Balance/Special Test Scores Lower Extremity Functional Score: 30 Goals Goal 1:: Patient to be I with HEP Goal Time Frame: 4-6 Weeks Goal 2:: Patient to demonstrate 40% improvement with less pain and improved function Goal Time Frame: 4-6 Weeks Goal 3:: Patient to improve LFES score by 5 points to improve function and ADLS /QOL. Goal Time Frame: 4-6 Weeks Goal 4:: Patient to improve peak force quads/hams/hips and shoulders by 5-10# to improve function and less pain Goal Time Frame: 4-6 Weeks Rehabilitation Potential Physical Therapy Diagnosis: This patient has chronic pain with OA psoriatic with muscle weakness impairs ADLS and housework tasks /job demands thus benefit from skilled PT Rehabilitation Potential: Good Anticipated Interventions Patient/Client Instruction: Educate patient on: Condition and Plan of Care For the Purpose of:: To decrease pain, To increase ROM, To increase oxygenation perfusion, To increase tolerance to activity/condition/positio n, To improve ability of physical actions for home/community/work/leisur e, To improve gait and locomotor functions, To increase flexibility/ROM and To improve endurance Therapeutic Exercise to Include: Strength training, Endurance training, Balance training, Flexibilty training and Dynamic Lumbar Stabilization Comment: BUE/BLE For the Purpose of:: To decrease pain, To increase ROM, To improve muscle performance and motor function, To increase tolerance to activity/condition/positio n, To improve ability of physical actions for home/community/work/leisur e, To improve gait and locomotor functions, To improve health of tissue, To improve endurance and To reduce risk of recurrence Text: Thank you for the opportunity to evaluate your patient. For Medicare and Medicare HMO plans, please review the plan of care and approve it. It will need to be FAXED BACK to us at [phone] for Medicare purposes. For Medicare only, by signing this I certify the plan of care. Please let me know if there are questions or concerns regarding this plan of care. Physician Signature: Date: 03/06/24 1428 CC: Dr. Chasity Rubi DO; Dr. Maria A Carranza MD JLA Signed Normal [facility] CBC W/Diff, Automatedon 10-0 8-2023 Absolute Lymph 1.76 X10 3/uL Normal 0.83-4.51 [facility] Comment on above: Performed By: #### L 100.0100, L500.4050 ####[facility] [address] [place], [address] Absolute Neut 3.6 X10 3/uL Normal 2.0-7.7 [facility] Comment on above: Performed By: #### L 100.0100, L500.4050 ####[facility] [address] [place], [address] Basophils/100 WBC (Bld) 1.2 % High 0-1 [facility] Comment on above: Performed By: #### L 100.0100, L500.4050 ####[facility] [address] [place], [address] Eosinophils/100 WBC (Bld) 4.7 % Normal 0-5 [facility] Comment on above: Performed By: #### L 100.0100, L500.4050 ####[facility] [address] [place], [address] Erythrocyte distribution width (RBC) [Ratio] 13.7 % Normal 11.6-14.6 [facility] Comment on above: Performed By: #### L 100.0100, L500.4050 ####[facility] [address] [place], [address] Hematocrit (Bld) [Volume fraction] 45.1 % Normal 37-47 [facility] Comment on above: Performed By: #### L 100.0100, L500.4050 ####[facility] [address] [place], [address] Hemoglobin (Bld) [Mass/Vol] 14.1 g/dL Normal 12.0-15.0 [facility] Comment on above: Performed By: #### L 100.0100, L500.4050 ####[facility] [address] [place], [address] IG% 0.500 Normal 0.0-0.9 [facility] Comment on above: Result Comment: IG% - Immature Granulocytes (promyelocytes, myelocytes and metamyelocytes) > 1% indicates that a LEFT SHIFT is Present. Performed By: #### L 100.0100, L500.4050 ####[facility] [address] [place], [address] Lymphocytes/100 WBC (Bld) 27.4 % Normal 19-41 [facility] Comment on above: Performed By: #### L 100.0100, L500.4050 ####[facility] [address] [place], [address] MCH (RBC) [Entitic mass] 29.4 pg Normal 27.0-32.0 [facility] Comment on above: Performed By: #### L 100.0100, L500.4050 ####[facility] [address] [place], [address] MCHC (RBC) [Mass/Vol] 31.3 g/dL Low 32-36 [facility] Comment on above: Performed By: #### L 100.0100, L500.4050 ####[facility] [address] [place], [address] MCV (RBC) [Entitic vol] 94.2 fL Normal 81-99 [facility] Comment on above: Performed By: #### L 100.0100, L500.4050 ####[facility] [address] [place], [address] Monocytes/100 WBC (Bld) 10.3 % High 0-10 [facility] Comment on above: Performed By: #### L 100.0100, L500.4050 ####[facility] [address] [place], [address] Neutrophils/100 WBC (Bld) 55.9 % Normal 47-70 [facility] Comment on above: Performed By: #### L 100.0100, L500.4050 ####[facility] [address] [place], [address] Nucleated RBC (Bld) [#/Vol] 0 10*3/uL Normal 0-5 [facility] Comment on above: Performed By: #### L 100.0100, L500.4050 ####[facility] [address] [place], [address] Platelet mean volume (Bld) [Entitic vol] 11.1 fL Normal 6.2-12.0 [facility] Comment on above: Performed By: #### L 100.0100, L500.4050 ####[facility] [address] [place], [address] Platelets (Bld) [#/Vol] 312 10*3/uL Normal 150-450 [facility] Comment on above: Performed By: #### L 100.0100, L500.4050 ####[facility] [address] [place], [address] RBC (Bld) [#/Vol] 4.79 10*6/uL Normal 4.2-5.4 [facility] Comment on above: Performed By: #### L 100.0100, L500.4050 ####[facility] [address] [place], [address] RDW SD 46.8 fl High 35.1-43.9 [facility] Comment on above: Performed By: #### L 100.0100, L500.4050 ####[facility] [address] [place], [address] WBC (Bld) [#/Vol] 6.4 10*3/uL Normal 4.4-11.0 [facility] Comment on above: Performed By: #### L 100.0100, L500.4050 ####[facility] [address] [place], [address] Comprehensive Metabolic Prof ilon 02-14-2024 Albumin [Mass/Vol] 3.8 g/dL Normal 3.2-5.0 [facility] Comment on above: Performed By: #### L 100.0100, L500.4050 ####[facility] [address] [place], [address] Albumin/Globulin [Mass ratio] 1.1 {ratio} Normal 0.9-2.4 [facility] Comment on above: Performed By: #### L 100.0100, L500.4050 ####[facility] [address] [place], [address] ALK P 165 U/L High 45-117 [facility] Comment on above: Performed By: #### L 100.0100, L500.4050 ####[facility] [address] [place], [address] ALT [Catalytic activity/Vol] 36 U/L Normal 13-56 [facility] Comment on above: Performed By: #### L 100.0100, L500.4050 ####[facility] [address] [place], [address] AST [Catalytic activity/Vol] 23 U/L Normal 15-37 [facility] Comment on above: Performed By: #### L 100.0100, L500.4050 ####[facility] [address] [place], [address] Bilirubin [Mass/Vol] 0.40 mg/dL Normal 0.20-1.00 [facility] Comment on above: Result Comment: For patients on eltrombopag therapy, use of Dimension [place] TBIL is not recommended. Performed By: #### L 100.0100, L500.4050 ####[facility] [address] [place], [address] BUN/CRE 14.5 RATIO Normal 10-20 [facility] Comment on above: Performed By: #### L 100.0100, L500.4050 ####[facility] [address] [place], [address] CA,Total 9.8 mg/dL Normal 8.5-10.1 [facility] Comment on above: Performed By: #### L 100.0100, L500.4050 ####[facility] [address] [place], [address] Chloride [Moles/Vol] 106 mmol/L Normal 98-107 [facility] Comment on above: Performed By: #### L 100.0100, L500.4050 ####[facility] [address] [place], [address] CO2 [Moles/Vol] 28.0 mmol/L Normal 21.0-32.0 [facility] Comment on above: Performed By: #### L 100.0100, L500.4050 ####[facility] [address] [place], [address] Creatinine [Mass/Vol] 0.82 mg/dL Normal 0.55-1.02 [facility] Comment on above: Result Comment: The validity of the calculated GFR GFRAA in patients over 70 years has not been determined. Clinical correlation is essential. Performed By: #### L 100.0100, L500.4050 ####[facility] [address] [place], [address] EST GFR - AA 91 mL/min Normal >60 [facility] Comment on above: Result Comment: Afri can Bulgarian GFR Calc Performed By: #### L 100.0100, L500.4050 ####[facility] [address] [place], [address] GAP 7 Normal 5-15 [facility] Comment on above: Performed By: #### L 100.0100, L500.4050 ####[facility] [address] [place], [address] GFR/1.73 sq M.predicted among non-blacks MDRD (S/P/Bld) [Vol rate/Area] 75 mL/min/{1.73_m2} Normal >60 [facility] Comment on above: Result Comment: Non- GFR Calc Performed By: #### L 100.0100, L500.4050 ####[facility] [address] [place], [address] Globulin (S) [Mass/Vol] 3.4 g/dL Normal 2.2-4.2 [facility] Comment on above: Performed By: #### L 100.0100, L500.4050 ####[facility] [address] [place], [address] Glucose [Mass/Vol] 94 mg/dL Normal 74-106 [facility] Comment on above: Performed By: #### L 100.0100, L500.4050 ####[facility] [address] [place], [address] Potassium [Moles/Vol] 4.7 mmol/L Normal 3.5-5.1 [facility] Comment on above: Performed By: #### L 100.0100, L500.4050 ####[facility] [address] [place], [address] Sodium [Moles/Vol] 141 mmol/L Normal 136-145 [facility] Comment on above: Performed By: #### L 100.0100, L500.4050 ####[facility] [address] [place], [address] T PROT 7.2 g/dL Normal 6.4-8.2 [facility] Comment on above: Performed By: #### L 100.0100, L500.4050 ####[facility] [address] [place], [address] Urea nitrogen [Mass/Vol] 12 mg/dL Normal 7-18 [facility] Comment on above: Performed By: #### L 100.0100, L500.4050 ####[facility] [address] [place], [address] Absolute lymphocyte countOrd ered By: Maria A Carranza on 08-05-2023 Lymphocytes Auto (Unsp spec) [#/Vol] 2.38 10*3/uL 0.83-4.51 [facility] Automated lymphocyte count a s percentage of total leukocytesOrdered By: Maria A Carranza on 08-05-2023 Lymphocytes/100 WBC Auto (Unsp spec) 30.4 % 19-41 [facility] Basophil percentageOrdered B y: Maria A Carranza on 08-05-2023 Basophil percentage < 10.0 IU/mL <15 [facility] Basophils/100 WBC (Bld) 0.8 % 0-1 [facility] Bilirubin [Mass/Vol] 0.30 mg/dL 0.20-1.00 [facility] Comment on above: For patients on eltr ombopag therapy, use of Dimension [place] TBIL is not recommended. Chloride [Moles/Vol] 108 mmol/L 98-107 [facility] Eosinophils/100 WBC (Bld) 4.0 % 0-5 [facility] Glucose [Mass/Vol] 89 mg/dL 74-106 [facility] Hemoglobin (Bld) [Mass/Vol] 13.9 g/dL 12.0-15.0 [facility] Monocytes/100 WBC (Bld) 7.2 % 0-10 [facility] Neutrophils (Bld) [#/Vol] 4.5 10*3/uL 2.0-7.7 [facility] Neutrophils/100 WBC (Bld) 57.2 % 47-70 [facility] Potassium [Moles/Vol] 3.6 mmol/L 3.5-5.1 [facility] Protein [Mass/Vol] 7.3 g/dL 6.4-8.2 [facility] Sodium [Moles/Vol] 141 mmol/L 136-145 [facility] WBC (Bld) [#/Vol] 7.8 10*3/uL 4.4-11.0 [facility] Determination of erythrocyte mean corpuscular volume (MCV)Ordered By: Maria A Carranza on 08-05-2023 MCV (RBC) [Entitic vol] 89.7 fL 81-99 [facility] Erythrocyte distribution wid th ratioOrdered By: Maria A Carranza on 08-05-2023 Erythrocyte distribution width (RBC) [Ratio] 13.2 % 11.6-14.6 [facility] Erythrocyte distribution wid th standard deviationOrdered By: Maria A Tere on 08-05-2023 Erythrocyte distribution width (RBC) [Entitic vol] 43.4 fL 35.1-43.9 [facility] Erythrocyte sedimentation ra teOrdered By: Maria A Carranza on 08-05-2023 ESR (Bld) [Velocity] 14 mm/h 0-30 [facility] Hematocrit Auto (Bld) [Volum e fraction]Ordered By: Maria A Carranza on 08-05-2023 Hematocrit (Bld) [Volume fraction] 43.6 % 37-47 [facility] Immature granulocytes/100 WB C Auto (Bld)Ordered By: Maria A Carranza on 08-05-2023 Immature granulocytes/100 WBC (Bld) 0.400 % 0.0-0.9 [facility] Comment on above: IG% - Immature Granu locytes (promyelocytes, myelocytes and metamyelocytes) > 1% indicates that a LEFT SHIFT is Present. Laboratory - Chemistry and C hemistry - challengeOrdered By: Maria A Carranza on 08-05-2023 Albumin/Globulin [Mass ratio] 1.1 {ratio} 0.9-2.4 [facility] ALP [Catalytic activity/Vol] 149 U/L 45-117 [facility] ALT [Catalytic activity/Vol] 27 U/L 13-56 [facility] CO2 [Moles/Vol] 28.0 mmol/L 21.0-32.0 [facility] Globulin (S) [Mass/Vol] 3.4 g/dL 2.2-4.2 [facility] Urea nitrogen/Creatinine [Mass ratio] 20.6 mg/mg 10-20 [facility] Laboratory - Hematology and Cell countsOrdered By: Maria A Carranza on 08-05-2023 MCH (RBC) [Entitic mass] 28.6 pg 27.0-32.0 [facility] MCHC (RBC) [Mass/Vol] 31.9 g/dL 32-36 [facility] Nucleated RBC/100 WBC (Bld) [Ratio] 0 % 0-5 [facility] Platelet mean volume (Bld) [Entitic vol] 12.0 fL 6.2-12.0 [facility] Platelets (Bld) [#/Vol] 307 10*3/uL 150-450 [facility] No Panel InformationOrdered By: Maria A Carranza on 08-05-2023 Anti-Nuclear Antibody Screen Negative Negative [facility] Comment on above: Performed at: [employer] [facility] [employer] [address] [id number] Director: Haris Sheridan PhD, Phone: [phone] C-Reactive Protein Extended Range 3.53 mg/L 0.0-3.0 [facility] Comment on above: C-Reactive Protein ( CRP) provides useful information for thediagnosis, therapy and monitoring of inflammatory processesand associated diseases. For the evaluation of Relative Riskfor Cardiovascular Disease, a High Sensitivity CRP (HSCRP)should be ordered. Estimated GFR (MDRD) Amer 71 mL/min >60 [facility] Comment on above: GFR Calc Estimated GFR (MDRD) Non-Af Amer 59 mL/min >60 [facility] Comment on above: Non- GFR Calc Hepatitis B Surface Antigen Non-Reactive Nonreactive [facility] Hepatitis C Antibody Non-Reactive Nonreactive [facility] Comment on above: Non Reactive: < 0.8 Equivocal: >/= 0.8 to < 1.0 Reactive: >/= 1.0The CDC requires that a reactive/equivocal HCV antibody result be sent out for confirmation. HCV Quant by PCR testing. RBC Auto (Bld) [#/Vol]Ordere d By: Maria A Carranza on 08-05-2023 RBC (Bld) [#/Vol] 4.86 10*6/uL 4.2-5.4 [facility] Serum cyclic citrullinated p eptide IgG antibody assay (units/volume)Ordered By: Maria A Carranza on 08-05-2023 Cyclic citrullinated peptide IgG Qn 2 units 0-19 [facility] Comment on above: Negative <20 Weak po sitive 20 - 39 Moderate positive 40 - 59 Strong positive >59Performed at: [facility] [id number] Director: Haris Sheridan PhD, Phone: [phone] Serum hepatitis B virus surf meka antibody IgG detectionOrdered By: Maria A Carranza on 08-05-2023 HBV surface IgG Ql (S) Non-Reactive [facility] Comment on above: Non Reactive: Incons istent with immunity less than <10 mIU/mL Reactive: Consistent with immunity greater than or equal to 10 mIU/mL Serum or plasma calcium kylah urement (mass/volume)Ordered By: Maria A Carranza on 08-05-2023 Calcium [Mass/Vol] 9.1 mg/dL 8.5-10.1 [facility] Serum or plasma creatinine m easurement (mass/volume)Ordered By: Maria A Carranza on 08-05-2023 Creatinine [Mass/Vol] 1.02 mg/dL 0.55-1.02 [facility] Comment on above: The validity of the calculated GFR & GFRAA in patients over 70 years has not been determined. Clinical correlation is essential. Serum or plasma urea nitroge n measurement (mass/volume)Ordered By: Maria A Carranza on 08-05-2023 Urea nitrogen [Mass/Vol] 21 mg/dL 7-18 [facility] Thin prep Papanicolaou smear with manual screeningOrdered By: Maria A Carranza on 08-05-2023 Thin prep Papanicolaou smear with manual screening 3.9 g/dL 3.2-5.0 [facility] Thin prep Papanicolaou smear with manual screening 17 U/L 15-37 [facility] Thin prep Papanicolaou smear with manual screening 5 5-15 [facility] Absolute lymphocyte countOrd ered By: Emilie Wheatley on 04-20-2023 Lymphocytes Auto (Unsp spec) [#/Vol] 1.83 10*3/uL 0.83-4.51 [facility] Basophil percentageOrdered B y: Emilie Wheatley on 04-20-2023 Basophils/100 WBC (Bld) 0.9 % 0-1 [facility] Bilirubin [Mass/Vol] 0.40 mg/dL 0.20-1.00 [facility] Comment on above: For patients on eltr ombopag therapy, use of Dimension [place] TBIL is not recommended. Chloride [Moles/Vol] 108 mmol/L 98-107 [facility] Cholesterol [Mass/Vol] 196 mg/dL <200 [facility] Comment on above: <200 mg/dL Desirable 200-240 mg/dL Borderline >240 mg/dL High Risk Eosinophils/100 WBC (Bld) 2.9 % 0-5 [facility] Glucose [Mass/Vol] 90 mg/dL 74-106 [facility] Neutrophils (Bld) [#/Vol] 5.0 10*3/uL 2.0-7.7 [facility] Neutrophils/100 WBC (Bld) 64.6 % 47-70 [facility] Potassium [Moles/Vol] 4.5 mmol/L 3.5-5.1 [facility] Protein [Mass/Vol] 7.4 g/dL 6.4-8.2 [facility] Sodium [Moles/Vol] 141 mmol/L 136-145 [facility] Triglyceride [Mass/Vol] 117 mg/dL <199 [facility] Comment on above: The drugs N-Acetylcy steine and Metamizole may falsely depress this assay.Serum Triglycerides Reference Interval Normal <150 mg/dL Borderline high 150 - 199 mg/dL High 200 - 499 mg/dL Very High > or = 500 mg/dL WBC (Bld) [#/Vol] 7.8 10*3/uL 4.4-11.0 [facility] Blood erythrocytes count (nu mber/volume)Ordered By: Emilie Wheatley on 04-20-2023 RBC (Bld) [#/Vol] 5.01 10*6/uL 4.2-5.4 [facility] Blood hemoglobin measurement (mass/volume)Ordered By: Emilie Wheatley on 04-20-2023 Hemoglobin (Bld) [Mass/Vol] 14.2 g/dL 12.0-15.0 [facility] Blood lymphocytes/100 leukoc ytesOrdered By: Emilie Wheatley on 04-20-2023 Lymphocytes/100 WBC (Bld) 23.5 % 19-41 [facility] Blood monocytes/100 leukocyt esOrdered By: Emilie Wheatley on 04-20-2023 Monocytes/100 WBC (Bld) 7.7 % 0-10 [facility] Blood platelet mean volumeOr dered By: Emilie Wheatley on 04-20-2023 Platelet mean volume (Bld) [Entitic vol] 11.7 fL 6.2-12.0 [facility] Determination of erythrocyte mean corpuscular volume (MCV)Ordered By: Emilie Wheatley on 04-20-2023 MCV (RBC) [Entitic vol] 92.0 fL 81-99 [facility] Hematocrit Auto (Bld) [Volum e fraction]Ordered By: Emilie Wheatley on 04-20-2023 Hematocrit (Bld) [Volume fraction] 46.1 % 37-47 [facility] Laboratory - Chemistry and C hemistry - challengeOrdered By: Emilie Wheatley on 04-20-2023 ALP [Catalytic activity/Vol] 138 U/L 45-117 [facility] ALT [Catalytic activity/Vol] 23 U/L 13-56 [facility] CO2 [Moles/Vol] 26.0 mmol/L 21.0-32.0 [facility] Free T4 [Mass/Vol] 1.05 ng/dL 0.76-1.46 [facility] Globulin (S) [Mass/Vol] 3.4 g/dL 2.2-4.2 [facility] Urea nitrogen/Creatinine [Mass ratio] 19.2 mg/mg 10-20 [facility] Laboratory - Hematology and Cell countsOrdered By: Emilie Wheatley on 04-20-2023 Erythrocyte distribution width (RBC) [Entitic vol] 44.3 fL 35.1-43.9 [facility] Erythrocyte distribution width (RBC) [Ratio] 13.1 % 11.6-14.6 [facility] Immature granulocytes/100 WBC (Bld) 0.400 % 0.0-0.9 [facility] Comment on above: IG% - Immature Granu locytes (promyelocytes, myelocytes and metamyelocytes) > 1% indicates that a LEFT SHIFT is Present. MCH (RBC) [Entitic mass] 28.3 pg 27.0-32.0 [facility] Nucleated RBC/100 WBC (Bld) [Ratio] 0 % 0-5 [facility] MCHC Auto (RBC) [Mass/Vol]Or dered By: Emilie Wheatley on 04-20-2023 MCHC (RBC) [Mass/Vol] 30.8 g/dL 32-36 [facility] No Panel InformationOrdered By: Emilie Wheatley on 04-20-2023 Estimated GFR (MDRD) Amer 90 mL/min >60 [facility] Comment on above: GFR Calc Estimated GFR (MDRD) Non-Af Amer 74 mL/min >60 [facility] Comment on above: Non- GFR Calc Thyroid Stimulating Hormone (TSH) 3.92 uIU/mL 0.358-3.74 [facility] Vitamin D 25-Hydroxy 28.6 ng/mL [facility] Comment on above: Vitamin D 25(OH) Sta tus Range Deficiency <20 ng/mL (50nmol/L) Insufficiency 20 - 30 ng/mL (50 - 75 nmol/L) Sufficiency 30 - 100 ng/mL (75 - 250 nmol/L) Toxicity >100 ng/mL (>250 nmol/L) Platelets bldOrdered By: Moises Wheatley on 04-20-2023 Platelets (Bld) [#/Vol] 331 10*3/uL 150-450 [facility] Serum or plasma albumin kylah urement (mass/volume)Ordered By: Emilie Wheatley on 04-20-2023 Albumin [Mass/Vol] 4.0 g/dL 3.2-5.0 [facility] Serum or plasma albumin/glob ulin mass ratioOrdered By: Emilie Wheatley on 04-20-2023 Albumin/Globulin [Mass ratio] 1.2 {ratio} 0.9-2.4 [facility] Serum or plasma calcium kylah urement (mass/volume)Ordered By: Emilie Wheatley on 04-20-2023 Calcium [Mass/Vol] 9.3 mg/dL 8.5-10.1 [facility] Serum or plasma cholesterol in HDL measurement (mass/volume)Ordered By: Emilie Wheatley on 04-20-2023 Cholesterol in HDL [Mass/Vol] 53 mg/dL >40 [facility] Comment on above: The drugs N-Acetylcy steine and Metamizole may falsely depress this assay. Reference Range HDL <40 mg/dL Low HDL Cholesterol HDL >or= 60 mg/dL High HDL Cholesterol Serum or plasma cholesterol in VLDL measurement (mass/volume)Ordered By: Emilie Wheatley on 04-20-2023 Cholesterol in VLDL [Mass/Vol] 23 mg/dL 5-40 [facility] Serum or plasma creatinine m easurement (mass/volume)Ordered By: Emilie Wheatley on 04-20-2023 Creatinine [Mass/Vol] 0.83 mg/dL 0.55-1.02 [facility] Comment on above: The validity of the calculated GFR & GFRAA in patients over 70 years has not been determined. Clinical correlation is essential. Serum or plasma low density lipoprotein (LDL) cholesterol measurement (mass/volume)Ordered By: Emilie Wheatley on 04-20-2023 Cholesterol in LDL [Mass/Vol] 120 mg/dL 0-130 [facility] Serum or plasma urea nitroge n measurement (mass/volume)Ordered By: Emilie Wheatley on 04-20-2023 Urea nitrogen [Mass/Vol] 16 mg/dL 7-18 [facility] Thin prep Papanicolaou smear with manual screeningOrdered By: Emilie Wheatley on 04-20-2023 Thin prep Papanicolaou smear with manual screening 17 U/L 15-37 [facility] Thin prep Papanicolaou smear with manual screening 7 5-15 [facility] Absolute lymphocyte counton 03-23-2022 Lymphocytes Auto (Unsp spec) [#/Vol] 2.32 10*3/uL 0.83-4.51 [facility] Work Phone: Basophil percentageon 2021 Basophils/100 WBC (Bld) 0.6 % 0-1 [facility] Work Phone: Bilirubin [Mass/Vol] 0.40 mg/dL 0.20-1.00 [facility] Work Phone: Comment on above: For patients on eltr ombopag therapy, use of Dimension [place] TBIL is not recommended. Chloride [Moles/Vol] 109 mmol/L 98-107 [facility] Work Phone: Cholesterol [Mass/Vol] 188 mg/dL <200 [facility] Work Phone: Comment on above: <200 mg/dL Desirable 200-240 mg/dL Borderline >240 mg/dL High Risk Eosinophils/100 WBC (Bld) 3.1 % 0-5 [facility] Work Phone: Glucose [Mass/Vol] 89 mg/dL 74-106 [facility] Work Phone: Neutrophils (Bld) [#/Vol] 4.6 10*3/uL 2.0-7.7 [facility] Work Phone: [phone] Neutrophils/100 WBC (Bld) 58.9 % 47-70 [facility] Work Phone: Potassium [Moles/Vol] 4.5 mmol/L 3.5-5.1 [facility] Work Phone: Protein [Mass/Vol] 7.1 g/dL 6.4-8.2 [facility] Work Phone: Sodium [Moles/Vol] 141 mmol/L 136-145 [facility] Work Phone: Triglyceride [Mass/Vol] 89 mg/dL <199 [facility] Work Phone: Comment on above: The drugs N-Acetylcy steine and Metamizole may falsely depress this assay.Serum Triglycerides Reference Interval Normal <150 mg/dL Borderline high 150 - 199 mg/dL High 200 - 499 mg/dL Very High > or = 500 mg/dL WBC (Bld) [#/Vol] 7.8 10*3/uL 4.4-11.0 [facility] Work Phone: Blood erythrocytes count (nu mber/volume)on 03-23-2022 RBC (Bld) [#/Vol] 4.74 10*6/uL 4.2-5.4 [facility] Work Phone: Blood hemoglobin measurement (mass/volume)on 03-23-2022 Hemoglobin (Bld) [Mass/Vol] 13.9 g/dL 12.0-15.0 [facility] Work Phone: Blood lymphocytes/100 leukoc yteson 03-23-2022 Lymphocytes/100 WBC (Bld) 29.7 % 19-41 [facility] Work Phone: Blood monocytes/100 leukocyt eson 03-23-2022 Monocytes/100 WBC (Bld) 7.4 % 0-10 [facility] Work Phone: Blood platelet mean volumeon 03-23-2022 Platelet mean volume (Bld) [Entitic vol] 11.6 fL 6.2-12.0 [facility] Work Phone: Determination of erythrocyte mean corpuscular volume (MCV)on 03-23-2022 MCV (RBC) [Entitic vol] 91.4 fL 81-99 [facility] Work Phone: Hematocrit Auto (Bld) [Volum e fraction]on 03-23-2022 Hematocrit (Bld) [Volume fraction] 43.3 % 37-47 [facility] Work Phone: Laboratory - Chemistry and C hemistry - challengeon 03-23-2022 ALP [Catalytic activity/Vol] 121 U/L 45-117 [facility] Work Phone: ALT [Catalytic activity/Vol] 28 U/L 13-56 [facility] Work Phone: CO2 [Moles/Vol] 26.0 mmol/L 21.0-32.0 [facility] Work Phone: Free T4 [Mass/Vol] 1.03 ng/dL 0.76-1.46 [facility] Work Phone: Globulin (S) [Mass/Vol] 3.2 g/dL 2.2-4.2 [facility] Work Phone: Urea nitrogen/Creatinine [Mass ratio] 16.3 mg/mg 10-20 [facility] Work Phone: Laboratory - Hematology and Cell countson 03-23-2022 Erythrocyte distribution width (RBC) [Entitic vol] 45.7 fL 35.1-43.9 [facility] Work Phone: Erythrocyte distribution width (RBC) [Ratio] 13.4 % 11.6-14.6 [facility] Work Phone: Immature granulocytes/100 WBC (Bld) 0.300 % 0.0-0.9 [facility] Work Phone: Comment on above: IG% - Immature Granu locytes (promyelocytes, myelocytes and metamyelocytes) > 1% indicates that a LEFT SHIFT is Present. MCH (RBC) [Entitic mass] 29.3 pg 27.0-32.0 [facility] Work Phone: Nucleated RBC/100 WBC (Bld) [Ratio] 0 % 0-5 [facility] Work Phone: MCHC Auto (RBC) [Mass/Vol]on 03-23-2022 MCHC (RBC) [Mass/Vol] 32.1 g/dL 32-36 [facility] Work Phone: No Panel Informationon 03-23 Estimated GFR (MDRD) Amer 104 mL/min >60 [facility] Work Phone: Comment on above: GFR Calc Estimated GFR (MDRD) Non-Af Amer 86 mL/min >60 [facility] Work Phone: Comment on above: Non- GFR Calc Free Triiodothyronine (T3) pg/dL 2.4 pg/mL 2.18-3.98 [facility] Work Phone: Thyroid Stimulating Hormone (TSH) 2.84 uIU/mL 0.358-3.74 [facility] Work Phone: Vitamin D 25-Hydroxy 49.9 ng/mL [facility] Work Phone: Comment on above: Vitamin D 25(OH) Sta tus Range Deficiency <20 ng/mL (50nmol/L) Insufficiency 20 - 30 ng/mL (50 - 75 nmol/L) Sufficiency 30 - 100 ng/mL (75 - 250 nmol/L) Toxicity >100 ng/mL (>250 nmol/L) Platelets bldon 03-23-2022 Platelets (Bld) [#/Vol] 343 10*3/uL 150-450 [facility] Work Phone: Serum or plasma albumin kylah urement (mass/volume)on 03-23-2022 Albumin [Mass/Vol] 3.9 g/dL 3.2-5.0 [facility] Work Phone: Serum or plasma albumin/glob ulin mass ratioon 03-23-2022 Albumin/Globulin [Mass ratio] 1.2 {ratio} 0.9-2.4 [facility] Work Phone: Serum or plasma calcium kylah urement (mass/volume)on 03-23-2022 Calcium [Mass/Vol] 9.2 mg/dL 8.5-10.1 [facility] Work Phone: Serum or plasma cholesterol in HDL measurement (mass/volume)on 03-23-2022 Cholesterol in HDL [Mass/Vol] 51 mg/dL >40 [facility] Work Phone: Comment on above: The drugs N-Acetylcy steine and Metamizole may falsely depress this assay. Reference Range HDL <40 mg/dL Low HDL Cholesterol HDL >or= 60 mg/dL High HDL Cholesterol Serum or plasma cholesterol in VLDL measurement (mass/volume)on 03-23-2022 Cholesterol in VLDL [Mass/Vol] 18 mg/dL 5-40 [facility] Work Phone: Serum or plasma creatinine m easurement (mass/volume)on 03-23-2022 Creatinine [Mass/Vol] 0.74 mg/dL 0.55-1.02 [facility] Work Phone: Comment on above: The validity of the calculated GFR & GFRAA in patients over 70 years has not been determined. Clinical correlation is essential. Serum or plasma low density lipoprotein (LDL) cholesterol measurement (mass/volume)on 03-23-2022 Cholesterol in LDL [Mass/Vol] 119 mg/dL 0-130 [facility] Work Phone: Serum or plasma urea nitroge n measurement (mass/volume)on 03-23-2022 Urea nitrogen [Mass/Vol] 12 mg/dL 7-18 [facility] Work Phone: Thin prep Papanicolaou smear with manual screeningon 03-23-2022 Thin prep Papanicolaou smear with manual screening 19 U/L 15-37 [facility] Work Phone: Thin prep Papanicolaou smear with manual screening 6 5-15 [facility] Work Phone: CNOVon 12-27-2021 CNOV Office Visit ([facility] ) -- FOZIA BREEN ([id number]) 1960 F Date Time Provider Department 12/27/21 8:30 AM TAMARA GRAFF [facility] During your visit today, we recorded the following information about you: Temperature Pulse Respiration Blood pressure 101.8 degrees 127/minute 20/minute 130/82 Weight 77.7 kg Tamara Graff APRN.CNP 12/27/2021 9:17 AM Signed ASSESSMENT/PLAN: 1. Suspected COVID-19 virus infection - ICD9: V01.79, ICD10: Z20.822 - COVID WITH FLUA+B, ROUTINE - Follow-up with your PCP in 3-5 days if symptoms have not improved or sooner if symptoms worsen - Discussed red flags and need for immediate medical evaluation if any occur. - Discussed supportive care treatment with fluids, rest and analgesia. - Discussed expected course of illness Tamara Graff APRN.CNP Beginning Home Isolation Isolation is used to separate people infected with SARS-CoV-2, the virus that causes COVID-19, from people who are not infected. People who are in isolation should stay home until it?s safe for them to be around others. In the home, anyone sick or infected should separate themselves from others by staying in a specific ?sick room? or area and using a separate bathroom (if available). Isolation or Quarantine: What's the difference? Quarantine keeps someone who might have been exposed to the virus away from others. Isolation keeps someone who is infected with the virus away from others, even in their home. Who needs to isolate People who have COVID-19 People who have symptoms of COVID-19 and are able to recover at home People who have no symptoms (are asymptomatic) but have tested positive for infection with SARS-CoV-2 Steps to take Stay home except to get medical care Monitor your symptoms. Stay in a separate room from other household members, if possible Use a separate bathroom, if possible Avoid contact with other members of the household and pets Don?t share personal household items, like cups, towels, and utensils Wear a mask when around other people, if you are able to When to seek emergency medical attention Look for emergency warning signs* for COVID-19. If someone is showing any of these signs, seek emergency medical care immediately: Trouble breathing Persistent pain or pressure in the chest New confusion Inability to wake or stay awake Bluish lips or face *This list is not all possible symptoms. Please call your medical provider for any other symptoms that are severe or concerning to you. Call 911 or call ahead to your local emergency facility: Notify the fagoting machine operator that you are seeking care for someone who has or may have COVID-19. Ending Home Isolation - When you can be around others after you had or likely had COVID-19 When you can be around others after you had or likely had COVID-19 If You Test Positive for COVID-19 (Isolation) Everyone, regardless of vaccination status: Stay home for 5 days. Note: Day 0 is your first day of symptoms or the date of collection of a positive viral test if no symptoms. Day 1 is the first full day after symptoms developed or test specimen was collected. If you have no symptoms or your symptoms are resolving after 5 days, you can leave your house. Continue to wear a mask around others for 5 additional days. If you have a fever, continue to stay home until your fever resolves, even if it is longer than 5 days. If You Were Exposed to Someone with COVID-19 (Quarantine) If you: 1. Have been boosted OR 2. Completed the primary series of Pfizer or Moderna vaccine within the last 6 months OR 3. Completed the primary series of JANDJ vaccine within the last 2 months THEN: 1. Wear a mask around others for 10 days. 2. Test on day 5, if possible. If you develop symptoms get a test and stay home. If You Were Exposed to Someone with COVID-19 (Quarantine) If you: 1. Completed the primary series of Pfizer or Moderna vaccine over 6 months ago and are not boosted OR 2. Completed the primary series of JANDJ over 2 months ago and are not boosted OR 3. Are unvaccinated THEN: 1. Stay home for 5 days. After that continue to wear a mask around others for 5 additional days. 2. If you can't quarantine you must wear a mask for 10 days. 3. Test on day 5 if possible. If you develop symptoms get a test and stay home. I had COVID-19 or I tested positive for COVID-19 and I have a weakened immune system If you have a weakened immune system (immunocompromised) due to a health condition or medication, you might need to stay home and isolate longer than 10 days. Talk to your healthcare provider for more information. Your doctor may work with an infectious disease expert at your local health department to determine when you can be around others. How to Manage Common Symptoms Associated with COVID for Adults Fever- Fe (more content not included)... Normal [facility] Influenza virus A and B RNA and SARS-CoV-2 (COVID-19) N gene panel ANGI+probe (Resp)on 12-27-2021 FLUAV RNA ANGI+probe Ql (Unsp spec) Negative Normal Negative for Influenza A by RT-PCR [facility] Comment on above: Order Comment: Speci men Type: SWAB OF INTERNAL NOSE Ordering Facility: [facility] Address: [address] [place] [address] Performed By: #### 9 5422-2 #### [facility] CLIA [id number] [address] [place] [address] [place] FLUBV RNA ANGI+probe Ql (Unsp spec) Negative Normal Negative for Influenza B by RT-PCR [facility] Comment on above: Order Comment: Speci men Type: SWAB OF INTERNAL NOSE Ordering Facility: [facility] Address: [address] [place] [address] Performed By: #### 9 [id number] #### [facility] CLIA [id number] [address] [place] [address] [place] SARS-CoV-2 (COVID-19) RNA ANGI+probe Ql (Resp) SARS-CoV-2 (Agent of COVID-19) Detected by RT-PCR or equivalent method. Abnormal Not Detected [facility] Comment on above: Order Comment: Speci men Type: SWAB OF INTERNAL NOSE Ordering Facility: [facility] Address: [address] [place] [address] Result Comment: grant s [id number]_[employer] (MART[employer]N)_EUA This test was developed and its performance characteristics determined by [facility] [place]. This test has been authorized by FDA under an Emergency Use Authorization (EUA). This test has been validated in accordance with the FDA's Guidance Document "Policy for Diagnostics Testing in Laboratories Certified to Perform High Complexity Testing under CLIA prior to Emergency use Authorization for Coronavirus Disease 2019 during the Public Health Emergency" issued on July 07, 2019. Test performed by [facility], [facility] [place], [address] [place] [address]. Performed By: #### 9 [id number] #### [facility] CLIA [id number] [address] [place] [address] [place] [address] [place] Vital Signs Date Time Vital Sign Value Performing Clinician Facility 11-07-2024 08:33-0400 Body height 154.[address] Chasity Rubi DO Work Phone: [facility] 11-07-2024 08:33-0400 Body mass index (BMI) [Ratio] 35.6 kg/m2 Dr. Chasity Rubi DO Work Phone: [facility] 11-07-2024 08:33-0400 Body temperature 97 [degF] Dr. Chasity Rubi DO Work Phone: [facility] 11-07-2024 08:33-0400 Body weight 85.[address] Chasity Rubi DO Work Phone: [facility] 11-07-2024 08:33-0400 Diastolic blood pressure 87 mm[Hg] Dr. Chasity Rubi DO Work Phone: [facility] 11-07-2024 08:33-0400 Heart rate 104 /min Dr. Chasity Rubi DO Work Phone: [facility] 11-07-2024 08:33-0400 Respiratory rate 18 /min Dr. Chasity Rubi DO Work Phone: [facility] 11-07-2024 08:33-0400 SaO2% (BldA) [Mass fraction] 95 % Dr. Chasity Rubi DO Work Phone: [facility] 11-07-2024 08:33-0400 Systolic blood pressure 137 mm[Hg] Dr. Chasity Rubi DO Work Phone: [facility] 10-09-2024 09:51-0400 Diastolic blood pressure 93 mm[Hg] Lala Gonzales APRN - BEEF GRINDER Work Phone: [facility] [employer] 10-09-2024 09:51-0400 Heart rate 87 /min Lala Gonzales APRN - BEEF GRINDER Work Phone: [facility] [employer] 10-09-2024 09:51-0400 Systolic blood pressure 140 mm[Hg] Lalayancy Gonzales ENGINEERING DRAFTER - BEEF GRINDER Work Phone: [facility] [employer] 10-09-2024 09:49-0400 Body height 154.9 cm Lala Gonzales APRN - BEEF GRINDER Work Phone: [facility] [employer] 10-09-2024 09:49-0400 Body mass index (BMI) [Ratio] 34.58 kg/m2 Lala Gonzales APRN - BEEF GRINDER Work Phone: [facility] [employer] 10-09-2024 09:49-0400 Body weight 83.01 kg Lala Gonzales APRN - BEEF GRINDER Work Phone: [facility] [employer] 09-25-2024 07:23-0400 Body temperature 97.11 [degF] Lee Ann Perez MD Work Phone: [facility] [employer] 09-25-2024 07:23-0400 Diastolic blood pressure 90 mm[Hg] Lee Ann Perez MD Work Phone: [facility] [employer] 09-25-2024 07:23-0400 Heart rate 94 /min Lee Ann Perez MD Work Phone: [facility] [employer] 09-25-2024 07:23-0400 Respiratory rate 16 /min Lee Ann Perez MD Work Phone: [facility] [employer] 09-25-2024 07:23-0400 SaO2% (BldA) [Mass fraction] 96 % Lee Ann Perez MD Work Phone: [facility] [employer] 09-25-2024 07:23-0400 Systolic blood pressure 142 mm[Hg] Lee Ann Perez MD Work Phone: [facility] 09-25-2024 05:14-0400 Body mass index (BMI) [Ratio] 34.54 kg/m2 Lee Ann Perez MD Work Phone: [facility] 09-25-2024 05:14-0400 Body weight 82.92 kg Lee Ann Perez MD Work Phone: [facility] 08-30-2024 11:32-0400 Body height 154.[address] Chasity Rubi DO Work Phone: [facility] 08-30-2024 11:32-0400 Body weight 80.[address] Chasity Rubi DO Work Phone: [facility] 08-30-2024 11:32-0400 Heart rate 94 /min Dr. Chasity Rubi DO Work Phone: [facility] 08-30-2024 11:32-0400 SaO2% (BldA) [Mass fraction] 95 % Dr. Chasity Rubi DO Work Phone: [facility] 08-28-2024 10:35-0400 Body height 154.9 cm Lee Ann Perez MD Work Phone: [facility] 08-28-2024 10:35-0400 Body mass index (BMI) [Ratio] 33.63 kg/m2 Lee Ann Perez MD Work Phone: [facility] 08-28-2024 10:35-0400 Body weight 80.74 kg Lee Ann Perez MD Work Phone: [facility] 08-28-2024 10:35-0400 Diastolic blood pressure 90 mm[Hg] Lee Ann Perez MD Work Phone: [facility] 08-28-2024 10:35-0400 Heart rate 98 /min Lee Ann Perez MD Work Phone: [facility] 08-28-2024 10:35-0400 Systolic blood pressure 136 mm[Hg] Lee Ann Perez MD Work Phone: [facility] 08-17-2024 07:43-0400 Body mass index (BMI) [Ratio] 33.6 kg/m2 Dr. Chasity Rubi DO Work Phone: [facility] 08-17-2024 07:43-0400 Body temperature 97.1 [degF] Dr. Chasity Rubi DO Work Phone: [facility] 08-17-2024 07:43-0400 Body weight 80.[address] Chasity Rubi DO Work Phone: [facility] 08-17-2024 07:43-0400 Diastolic blood pressure 73 mm[Hg] Dr. Chasity Rubi DO Work Phone: [facility] 08-17-2024 07:43-0400 Heart rate 83 /min Dr. Chasity Rubi DO Work Phone: [facility] 08-17-2024 07:43-0400 Respiratory rate 18 /min Dr. Chasity Rubi DO Work Phone: [facility] 08-17-2024 07:43-0400 SaO2% (BldA) [Mass fraction] 96 % Dr. Chasity Rubi DO Work Phone: [facility] 08-17-2024 07:43-0400 Systolic blood pressure 130 mm[Hg] Dr. Chasity Rubi DO Work Phone: [facility] 07-30-2024 09:11-0400 Body height 154.[address] Chasity Rubi DO Work Phone: [facility] 07-30-2024 09:11-0400 Body mass index (BMI) [Ratio] 33.7 kg/m2 Dr. Chasity Rubi DO Work Phone: [facility] 07-30-2024 09:11-0400 Body temperature 97.5 [degF] Dr. Chasity Rubi DO Work Phone: [facility] 07-30-2024 09:11-0400 Body weight 80.[address] Chasity Rubi DO Work Phone: [facility] 07-30-2024 09:11-0400 Diastolic blood pressure 77 mm[Hg] Dr. Chasity Rubi DO Work Phone: [facility] 07-30-2024 09:11-0400 Heart rate 100 /min Dr. Chasity Rubi DO Work Phone: [facility] 07-30-2024 09:11-0400 Respiratory rate 16 /min Dr. Chasity Rubi DO Work Phone: [facility] 07-30-2024 09:11-0400 SaO2% (BldA) [Mass fraction] 97 % Dr. Chasity Rubi DO Work Phone: [facility] 07-30-2024 09:11-0400 Systolic blood pressure 126 mm[Hg] Dr. Chasity Rubi DO Work Phone: [facility] 12-27-2021 08:52-0400 Body temperature 101.8 [degF] Tamara Praisler-Wood ENGINEERING DRAFTER.BEEF GRINDER Work Phone: [facility] 12-27-2021 08:52-0400 Body weight 77.66 kg Tamara Praisler-Wood ENGINEERING DRAFTER.BEEF GRINDER Work Phone: [facility] 12-27-2021 08:52-0400 Diastolic blood pressure 82 mm[Hg] Tamara Praisler-Wood ENGINEERING DRAFTER.BEEF GRINDER Work Phone: [facility] 12-27-2021 08:52-0400 Heart rate 127 /min Tamara Praisler-Wood ENGINEERING DRAFTER.BEEF GRINDER Work Phone: [facility] 12-27-2021 08:52-0400 Respiratory rate 20 /min Tamara Praisler-Wood ENGINEERING DRAFTER.BEEF GRINDER Work Phone: [facility] 12-27-2021 08:52-0400 SaO2% (BldA) [Mass fraction] 95 % Tamara Praisler-Wood ENGINEERING DRAFTER.BEEF GRINDER Work Phone: [facility] 12-27-2021 08:52-0400 Systolic blood pressure 130 mm[Hg] Tamara BalbuenaSvetlana JENKINS.BEEF GRINDER Work Phone: [facility] Encounters Encounter Date Encounter Type Care Provider Facility Start: 03-14-2025 ambulatory [facility] Facility :[facility] Start: 01-15-2025 ambulatory [facility] Facility :[facility] Start: 11-27-2024 End: 11-27-[address] Emilie Wheatley MD Work Phone: -[facility] Start: 11-27-2024 End: 11-27-[address] Maria A Carranza MD -[facility] Work Phone: Start: 11-27-2024 End: 11-27-2024 ambulatory Emilie Wheatley Facility:[facility] Start: 11-07-2024 End: 11-07-2024 Patient encounter procedure Angeline VALENZUELAC -[facility] Work Phone: Start: 11-07-2024 End: 11-07-[address] Chasity Rubi DO Work Phone: -[facility] Start: 10-11-2024 End: 10-12-2024 Telephone encounter Lee Ann Perez MD Work Phone: [facility] [place] [facility] [place] Comment on above: Procedure Start: 10-09-2024 End: 10-09-2024 Postop follow up visit related to original px Lalayancy Gonzales APRN - BEEF GRINDER Work Phone: [facility] [place] [facility] [place] Kacie Curtis Comment on above: Adenocarcinoma (HCC) (Primary Dx); Pulmonary nodule Start: 10-09-2024 End: 10-09-2024 ambulatory LALA GONZALES [facility] Start: 09-20-2024 End: 09-20-2024 Evaluation and management of inpatient Mariia Talavera ENGINEERING DRAFTER - DATABASES COMPUTER CONSULTANT Work Phone: [facility] Start: 09-20-2024 End: 09-25-2024 Evaluation and management of inpatient Lee Ann Perez MD Work Phone: [facility] Progressive Care Unit PCU H6 Comment on above: Lung nodule (Primary Dx); Solitary pulmonary nodule Start: 09-13-2024 End: 09-13-2024 ambulatory LEE ANN PEREZ [facility] Start: 09-02-2024 End: 09-02-2024 Admission to same day surgery center Benjamin Moffett ENGINEERING DRAFTER - BEEF GRINDER Work Phone: [facility] [place] [facility] [place] [facility] Comment on above: Lung nodule (Primary Dx) Start: 09-02-2024 End: 09-02-2024 ambulatory Benjamin Moffett ENGINEERING DRAFTER - BEEF GRINDER Work Phone: [facility] Start: 08-31-2024 ambulatory Angeline Lew NP Fac ility:[facility] Start: 08-31-2024 Non-patient / Non-visit Dr. Shivam cervantes DO -[facility] Start: 08-31-2024 End: 08-31-2024 Patient encounter procedure Angeline Lew NP-C -Pulmonary Services/Neurology Work Phone: Start: 08-30-2024 End: 09-02-2024 Telephone encounter Lee Ann Perez MD Work Phone: [facility] Comment on above: Surgery Scheduling Start: 08-30-2024 End: 08-31-[address] Chasity Rubi DO Work Phone: [facility] Work Phone: Start: 08-30-2024 End: 08-30-2024 Patient encounter procedure Angeline Lew NP-C -Pulmonary Services/Neurology Work Phone: Start: 08-30-2024 End: 08-30-2024 ambulatory Angeline Lew NP Facility:[facility] Start: 08-28-2024 End: 08-28-2024 Office outpatient new 60 minutes Lee Ann Perez MD Work Phone: [facility] Comment on above: Pulmonary nodule (Pr imary Dx); Rheumatoid arthritis, involving unspecified site, unspecified whether rheumatoid factor present (HCC) Start: 08-28-2024 End: 08-28-2024 ambulatory [facility] Start: 08-28-2024 ambulatory Chasity Rubi Facility:[facility] Start: 08-17-2024 End: 08-17-2024 Patient encounter procedure Angeline Lew RUSTIC FENCE BUILDER-C -[facility] Work Phone: Start: 08-17-2024 End: 08-17-2024 ambulatory Angeline Lew NP Facility:[facility] Start: 08-07-2024 End: 08-07-[address] Chasity Rubi DO Work Phone: [facility] Work Phone: Start: 08-07-2024 End: 08-07-2024 Patient encounter procedure Angeline Lew RUSTIC FENCE BUILDER-C -[facility] Start: 08-07-2024 End: 08-07-2024 ambulatory Angeline Lew NP Facility:[facility] Start: 07-30-2024 End: 07-30-2024 Patient encounter procedure Angeline Lew RUSTIC FENCE BUILDER-C -[facility] Work Phone: Start: 07-30-2024 End: 07-30-2024 ambulatory Angeline Lew NP Facility:[facility] Start: 07-25-2024 End: 07-25-[address] Chasity Rubi DO Work Phone: [facility] Work Phone: Start: 07-25-2024 End: 07-25-[address] Chasity Rubi DO -Outpatient Breast Imaging Work Phone: Start: 07-25-2024 End: 07-25-2024 ambulatory Chasity Rubi Facility:[facility] Start: 07-18-2024 End: 07-18-[address] Chasity Rubi DO Work Phone: [facility] Work Phone: Start: 07-18-2024 End: 07-18-[address] Chasity Rubi DO -Cat Scan, [facility] Work Phone: Start: 07-18-2024 End: 07-18-2024 ambulatory [facility] Facility:[facility] Start: 06-06-2024 End: 06-06-[address] Maria A Carranza MD -Laboratory, [place] Work Phone: Start: 06-06-2024 End: 06-06-2024 ambulatory [facility] Facility:[facility] Start: 04-10-2024 End: 04-10-2024 [facility] Start: 04-10-2024 End: 04-10-[address] Maria A Carranza MD -Physical Therapy Work Phone: Start: 04-03-2024 End: 04-03-[address] Maria A Carranza MD -Laboratory, [place] Work Phone: Start: 04-03-2024 End: 04-03-2024 ambulatory Maria A Carranza Facility:[facility] Start: 02-14-2024 End: 02-14-2024 ambulatory [facility] Facility:[facility] Start: 08-05-2023 End: 08-05-2023 ambulatory [facility] Work Phone: Start: 08-05-2023 End: 08-05-2023 Patient encounter procedure [facility]-Laboratory, [place] Work Phone: Start: 04-20-2023 End: 04-20-2023 ambulatory [facility] Work Phone: Start: 04-20-2023 End: 04-20-2023 Patient encounter procedure [facility]-Laboratory, [place] Start: 03-30-2022 End: 03-30-2022 ambulatory [facility] Work Phone: Start: 03-30-2022 End: 03-30-2022 Patient encounter procedure [facility]-Cat Scan, [facility] Start: 03-23-2022 End: 03-23-2022 ambulatory [facility] Work Phone: Start: 03-23-2022 End: 03-23-2022 Patient encounter procedure [facility], Sujey Jordan [facility] Start: 12-27-2021 End: 12-27-2021 Patient encounter procedure Tamara MacKacieCan BEEF GRINDER Work Phone: [facility] Comment on above: Suspected COVID-19 v irus infection (Primary Dx) Procedures Date Procedure Procedure Detail Performing Clinician Start: 09-25-2024 Radiologic exam ches t single view Aneil A Promise Pacheco MD Work Phone: Start: 09-24-2024 Radiologic exam ches t single view Aneil A Promise Pacheco MD Work Phone: Start: 09-24-2024 Radiologic exam ches t single view Aneil A Promise Pacheco MD Work Phone: Start: 09-24-2024 Basic metabolic pane l calcium total Aneil A Promise Pacheco MD Work Phone: Start: 09-23-2024 Radiologic exam ches t single view Aneil A Promise Pacheco MD Work Phone: Start: 09-23-2024 Basic metabolic pane l calcium total Aneil A Promise Pacheco MD Work Phone: Start: 09-22-2024 Radiologic exam ches t single view Aneil A Promise Pacheco MD Work Phone: Start: 09-22-2024 Basic metabolic pane l calcium total Aneil A Promise Pacheco MD Work Phone: Start: 09-21-2024 Radiologic exam ches t single view Aneil A Promise Pacheco MD Work Phone: Start: 09-21-2024 Basic metabolic pane l calcium total Aneil A Promise Pacheco MD Work Phone: Start: 09-20-2024 Basic metabolic pane l calcium total Aneil A Promise Pacheco MD Work Phone: Start: 09-20-2024 Radiologic exam ches t single view Aneil A Promise Pacheco MD Work Phone: Start: 09-20-2024 ANESTHESIA PERIPHERA L IV PLACEMENT Mariia Fernandez JoseRufusJabari ENGINEERING DRAFTER - DATABASES COMPUTER CONSULTANT Work Phone: Start: 09-20-2024 ANESTHESIA ARTERIAL LINE PLACEMENT Jani Mendoza ENGINEERING DRAFTER - DATABASES COMPUTER CONSULTANT Work Phone: Start: 09-20-2024 IA AN ELECTIVE ENDOTRACHEAL AIRWAY Mariia Fernandez JoseRufusJabari ENGINEERING DRAFTER - DATABASES COMPUTER CONSULTANT Work Phone: Start: 09-20-2024 End: 09-20-2024 Thoracoscopy w/dx wedge resexn anato lung resexn Lee Ann Perez MD Work Phone: Start: 09-20-2024 End: 09-20-2024 Peripheral block anesthesia Jani Mendoza ENGINEERING DRAFTER - DATABASES COMPUTER CONSULTANT Work Phone: Start: 09-20-2024 Antibody screen LEE ANN HODGES Comment on above: Performed By: #### L [id number] ####Telephone Solicitor: MAL ARVIZU ([phone])[facility] ([facility])[address] [place] [address] Start: 09-20-2024 ABO and Rh group [Ty pe] in Blood by Confirmatory method Sofi Aguilar APRN - BEEF GRINDER Work Phone: Start: 09-20-2024 Blood count hematocrit Sofi Aguilar APRN - BEEF GRINDER Work Phone: Start: 09-20-2024 Blood typing serologic abo Sofi Aguilar APRN [employer] BEEF GRINDER Work Phone: Start: 09-20-2024 Ecg routine ecg w/le ast 12 lds trcg only w/o i&r Sofi Aguilar APRN - BEEF GRINDER Work Phone: Start: 08-07-2024 Positron emission tomography with computed tomography Dr. Chasity Rubi DO Work Phone: Start: 07-25-[address] Chasity mccarty DO Work Phone: Start: 07-18-2024 End: 07-18-[address] Chasity Rubi DO Work Phone: Start: 07-18-[address] Chasity mccarty DO Work Phone: Start: 08-05-2023 Pelvis X-ray Start: 03-30-2022 Screening mammography Start: 03-30-2022 CT of chest Plan of Treatment Date Care Activity Detail Author Start: 2037 RSV Immunization for Adults (1 - 1-dose 75+ series) RSV Immunization for Adults (1 - 1-dose 75+ series) [facility] Start: 07-18-2025 Screening for malignant neoplasm of breast Mammogram [facility] Start: 04-10-2025 End: 10-09-2025 CT Chest WO contrast CT chest wo IV contrast Imaging Routine Adenocarcinoma (HCC) Expected: 04/10/2025, Expires: 10/09/2025 [facility] System Work Phone: Comment on above: Expected: 04/10/2025 , Expires: 10/09/2025 Start: 01-07-2025 Influenza vaccination Influenz a Vaccine (Season Ended) [facility] Start: 10-09-2024 End: 10-09-2024 Patient encounter procedure 10/09/2024 10:00 AM EDT Office Visit [facility] Cardiovascular Thoracic Surgery - [place] [address] [place] [phone] Lala Gonzales APRN - FLAVIA [address] [phone] [facility] Cardiovascular Thoracic Surgery - [place] Start: 09-20-2024 End: 09-20-2024 Admission to same day surgery center 09/20/2024 12:00 PM EDT - 09/20/2024 4:00 PM EDT Surgery [facility] OR [address] [facility] [place] [phone] Lee Ann Perez MD [address] [place] [address] [id number] THORACOSCOPY WITH WEDGE RESECTION LEFT LOWER LOBE [24337 (CPT )] [facility] OR Comment on above: THORACOSCOPY WITH WE DGE RESECTION LEFT LOWER LOBE [38430 (CPT )] Start: 09-20-2024 End: 09-20-2024 Rmvl lung other than pneumonectomy 1 lobe lobect LOBECTOMY, LUNG, OPEN Solitary pulmonary nodule 09/20/2024 12:00 PM EDT [facility] Operating Room Start: 09-20-2024 Subsequent hospital visit by physician 09/20/2024 12:00 PM EDT Hospital Encounter [facility] [address] [facility] [place] [phone] Lee Ann Perez MD [address] [place] [address] [facility] MAIN OR Start: 09-20-2024 End: 09-20-2024 Thoracoscopy w/dx wedge resexn anato lung resexn THORACOSCOPY WITH WEDGE RESECTION Solitary pulmonary nodule 09/20/2024 12:00 PM EDT [facility] Operating Room Start: 09-13-2024 End: 09-13-2024 Admission to establishment 09/13/2024 10:30 AM EDT Pre-Admission Testing [facility] Pre-Admit Testing [address] [place] [phone] Lee Ann Perez MD [address] [place] [address] [facility] Pre-Admit Testing Start: 08-17-2024 Patient referral [facility] Work Phone: Start: 01-08-2024 COVID-19 Vaccine ( season) COVID-19 Vaccine ( season) [facility] Start: 01-07-2022 Influenza vaccination INFLUENZA (#1) [facility] Start: 12-27-2021 End: 01-10-2022 Influenza virus A and B RNA and SARS-CoV-2 (COVID-19) N gene panel - Respiratory specimen by ANGI with probe detection COVID WITH FLUA+B, ROUTINE Microbiology Routine Suspected COVID-19 virus infection Expected: 12/27/2021, Expires: 01/10/2022 [facility] Work Phone: Comment on above: Expected: 12/27/2021 , Expires: 01/10/2022 Start: 2012 Pneumococcal Vaccine : 50+ Years (1 of 1 - PCV) Pneumococcal Vaccine: 50+ Years (1 of 1 - PCV) [facility] Start: 2012 Screening for malignant neoplasm of lung Lung Cancer Screening [facility] Start: 2012 SHINGRIX VACCINE (1 of 2) SHINGRIX VACCINE (1 of 2) [facility] Start: 2012 Zoster Vaccines (1 o f 2) Zoster Vaccines (1 of 2) [facility] Start: 12-24-2007 COLOGUARD (FIT-DNA) COLOGUARD (FIT-D NA) [facility] Start: 12-24-2007 Colonoscopy COLONOSCOPY [facility] Start: 12-24-2007 COLORECTAL CANCER SCREENING COLORECTAL CANCER SCREENING [facility] Start: 12-24-[address] COLONOGRAPHY [facility] Start: 12-24-2007 DIABETES SCREEN DIABETES SCREEN [facility] Start: 12-24-2007 FECAL OCCULT BLOOD FECAL OCCULT BLOO D [facility] Start: 12-24-2007 LIPID SCREEN LIPID SCREEN [facility] Start: 12-24-2007 SIGMOIDOSCOPY SIGMOIDOSCOPY [facility] Start: 2002 Mammography MAMMOGRAM [facility] Start: 2002 Screening for malignant neoplasm of breast Mammogram [facility] Start: 1992 HPV TESTING HPV TESTING [facility] Start: 1992 Screening for malignant neoplasm of cervix [facility] Start: 12-24-1983 PAP TESTING PAP TESTING [facility] Start: 12-24-1983 Screening for malignant neoplasm of cervix Pap Smear [facility] Start: 1981 DTaP/Tdap/Td Vaccine s (1 - Tdap) DTaP/Tdap/Td Vaccines (1 - Tdap) [facility] Start: 1981 Pneumococcal Vaccine : 50+ Years (1 of 2 - PCV) Pneumococcal Vaccine: 50+ Years (1 of 2 - PCV) [facility] Start: 1981 Urine microalbumin profile DTAP,TDAP,TD (1 - Tdap) [facility] Start: 1980 Diabetes mellitus screening Diabetes Screening [facility] Start: 1980 HEPATITIS C [facility] Start: 1980 Hepatitis C screening Hepatitis C Sc [facility] Start: 1980 HIV SCREENING HIV SCREENING [facility] Start: 1974 Adult depression screening assessment DEPRESSION SCREENING [facility] Start: 1968 PNEUMOCOCCAL (1 - PCV) PNEUMOCOCCAL (1 - PCV) [facility] Start: 12-24-1963 MMR Vaccines (1 of 1 - Standard series) MMR Vaccines (1 of 1 - Standard series) [facility] Start: 06-25-1963 COVID-19 VACCINE (#1) COVID-19 VACCI NE (#1) [facility] Start: 1962 HEPATITIS B (1 of 3 - 3-dose series) HEPATITIS B (1 of 3 - 3-dose series) [facility] Start: 1962 HIV screening HIV Screening [facility] Start: 1962 Lipid panel Lipid Panel [facility] Start: 1962 Screening for malignant neoplasm of colon [facility] CT Chest WO contrast [facility] Patient referral [facility] Work Phone: Positron emission tomography with computed tomography [facility] Tissue exam [facility] Sy stem Work Phone: Comment on above: Release Upon Kelvinin g for 1 Occurrences starting 09/20/2024, 1 completed Payers Date Payer Category Payer Self-pay [id number] 2023 Self-pay [id number] 2021 Private Health Insurance KATHRIN ESCOBEDO [id number] 2021-Present [phone] [address] [place] [address] Open Access [id number] 2020 Commercial Managed C are - HMO [employer] SHANDRA PARMAR [id number] [id number] 2020 Private Health Insurance [id number] Private Health Insurance [employer] [id number] Unknown Busuu [facility] [id number] Unknown [id number] [id number]. 2.462 Unknown [id number] 2.16840.1.622310.3.579. 2.462 Unknown [id number] 2.16.840.1.208097.3.579. 2.462 Unknown [id number] 2.16.840.1.091288.3.579. 2.462 Unknown [id number] 2.16840.1.628152.3.579. 2.462 Unknown [id number] 2.16.840.1.922973.3.579. 2.462 Unknown [id number] 2.16.840.1.032785.3.579. 2.462 Unknown [id number] 2.16.840.1.689947.3.579. 2.462 Unknown [id number] 2.16.840.1.443317.3.579. 2.462 Unknown [id number] 2.16840.1.553105.3.579. 2.462 Unknown [id number] 2.16.840.1.282939.3.579. 2.462 Unknown [id number] 2.16.840.1.947447.3.579. 2.462 Unknown [id number] 2.16.840.1.979367.3.579. 2.462 Unknown [id number] 2.16.840.1.744618.3.579. 2.462 Unknown [id number] 2.16.840.1.383090.3.579. 2.462 Unknown [id number] 2.16.840.1.229887.3.579. 2.462 Unknown [id number] 2.16.840.1.024247.3.579. 2.462 Unknown [id number] 2.16.840.1.958373.3.579. 2.462 Social History Date Type Detail Facility Start: 12-27-2021 End: 07-30-2024 Tobacco smoking status AZIS Smokes tobacco daily [facility] Start: 05-09-1982 End: 09-01-2024 History of tobacco use Cigarette Smoker [facility] Start: 12-27-2021 End: 09-13-2024 Tobacco use and exposure Smokeless tobacco non-user [facility] Start: 1960 Sex Assigned At Not on file [facility] Start: 12-17-2021 End: 12-27-2021 Exposure to SARS-CoV-2 (event) Not sure [facility] Start: 1960 Sex Assigned At Female [facility] Tobacco smoking stat us AZIS Unknown if ever smoked [facility] Work Phone: Start: 07-27-2024 End: 08-17-2024 Sex Female (finding) [facility] Start: 08-28-2024 End: 09-20-2024 Gender Identity Identifies as female gender (finding) [facility] Start: 08-28-2024 End: 09-20-2024 Cigarettes smoked current (pack per day) - Reported 1 [facility] Start: 08-28-2024 End: 09-21-2024 Alcoholic beverage intake Current drinker of alcohol (finding) [facility] Start: 08-23-2024 Alcohol Comment holidays/speci al occasions only [facility] Start: 09-13-2024 End: 11-07-2024 Tobacco smoking status NHIS Ex-smoker [facility] Start: 05-09-1982 End: 09-01-2024 History of tobacco use Current smoker [facility] Clinical Notes 12-27-2021 to 10-11-2024 Telephone Encounter - Yasmine Moncada - 10/11/2024 5:32 PM EDTTelephone Encounter - Yasmine Moncada - 10/11/2024 5:32 PM Trenton Gonzales APRN - BEEF GRINDER - 10/09/2024 10:00 AM EDTProcedure Summary Note Date & Type Note Facility 10-11-2024 Telephone encounter Note Name of caller: Lee Ann Contact phone number: [phone] Relationship to Patient: Employer Provider: Dr Perez Practice: [facility] CT Surg Chief Complaint/Reason for Call: Company needs verification that patient had 09/20/24 procedure -- they faxed over a surgery confirmation form and are asking for it to be faxed [phone] -- not received. Best time of day caller can be reached: AM Patient advised that office/PCP has 24-48 business hours to return their call: No [facility] 10-11-2024 Miscellaneous Notes Name of caller: Lee Ann Contact phone number: [phone] Relationship to Patient: Employer Provider: Dr Perez Practice: [facility] CT Surg Chief Complaint/Reason for Call: Company needs verification that patient had 09/20/24 procedure -- they faxed over a surgery confirmation form and are asking for it to be faxed [phone] -- not received. Best time of day caller can be reached: AM Patient advised that office/PCP has 24-48 business hours to return their call: No documented in this encounter [facility] 10-09-2024 History of Presen t illness Narrative Images from the original note were not included. [facility] Medical Group: [facility] [address] [facility] [address] [facility] [address] Dept: [phone] Dept Loc: [phone] Visit type: Established patient - in person Surgery/Procedure: s/p diagnostic left thoracoscopy, conversion to open thoracotomy with wedge resection of the left lower lobe lung lesion w/frozen section; left lower lobectomy with mediastinal lymph node sampling (Levels 8, 10, 12, 5) with Dr. 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) adenocarcinoma Plan: -Path discussed with patient; agreeable to plan - Surveillance CT Chest non con every 6 months for 2 years; yearly after as long as no changes Patient would like to follow up surveillance with pulm long-term We discussed will order first [address] and then coordinate with pulm in [place] for surveillance -Reviewed current meds -Surgical Incisions: healing appropriately, well approximated, no s/s of infection - slight swelling noted around incision Suture removed from piror CT site -Physical therapy as outlined in discharge instructions Ok to drive ROM exercises discussed Patient to call in for work letter to return to work closer to date - ok to return at light limited duty for one week. -Acute Post-Operative Pain Tx plan: OTC as needed -No weight Restriction -Follow up with PCP -Follow up with Pulm in [place] -Plan follow up [address] Patient to call with any questions or concerns. They verbalized understanding Subjective HPI: 63 y.o. female who presents today for post op follow up. -Surgical path finalized - discussed with surgeon and then patient. -Will plan CT chest non con every 6 months for 2 years initially then yearly after. -CT ordered placed today -Patient wants to follow up with Pulm in [place] for surveillance. Agreeable for first to be with us. Will attempt to coordinate with pulm office. -Medications reviewed: compliant with medications -Pain is controlled. She is currently taking: OTC as needed -Incisions: healing appropriately, well approximated, no s/s of infection, suture removed from prior CT site. Slight swelling around incision - likely seroma per patient decreasing in size; continue to monitor -There is no weight restriction from CTS standpoint. ROM exercises discussed. -Other complaints: no other needs at this time. Family present during exam. Objective Vitals: 10/09/24 0951 BP: (!) 140/93 Pulse: 87 Wt Readings from Last 3 Encounters: 10/09/24 183 lb (83 kg) 09/25/24 182 lb 12.8 oz (82.9 kg) 09/13/24 178 lb (80.7 kg) Physical Exam Cardiovascular: Rate and Rhythm: Normal rate and regular rhythm. Heart sounds: Normal heart sounds. No murmur heard. No friction rub. Pulmonary: Effort: Pulmonary effort is normal. Breath sounds: Examination of the left-lower field reveals decreased breath sounds. Decreased breath sounds present. Skin: General: Skin is warm and dry. Capillary Refill: Capillary refill takes less than 2 seconds. Findings: Bruising and ecchymosis present. Comments: Surgical Incisions: well approximate; clean dry with no drainage noted. Surrounding skin no redness, warmth, or signs of infection noted. Neurological: Mental Status: She is alert. Psychiatric: Behavior: Behavior is cooperative. Labs/Imaging/Testing: reviewed EMR, see A&P for pertinent diagnostic results related to office visit Final Diagnosis A. LUNG, LEFT LOWER LOBE, WEDGE RESECTION: - INVASIVE MODERATELY-DIFFERENTIATED ADENOCARCINOMA, SOLID-PATTERN. SEE SYNOPTIC REPORT. B. LUNG, LEFT LOWER LOBE, LOBECTOMY: - LUNG PARENCHYMA WITH EMPHYSEMATOUS CHANGES - NEGATIVE FOR MALIGNANCY C. LYMPH NODE, LEVEL 5, BIOPSY: - ONE LYMPH NODE NEGATIVE FOR METASTATIC CARCINOMA (0/1) D. LYMPH NODE, LEVEL 4, BIOPSY: - ONE LYMPH NODE NEGATIVE FOR METASTATIC CARCINOMA (0/1) E. LYMPH NODE, LEVEL 8, BIOPSY: - ONE LYMPH NODE NEGATIVE FOR METASTATIC CARCINOMA (0/1) F. LYMPH NODE, LEVEL 10, BIOPSY: - ONE LYMPH NODE NEGATIVE FOR METASTATIC CARCINOMA (0/1) at 2239 EDT Synoptic Checklist LUNG 8th Edition - Protocol posted: 01/27/2022LUNG - A SPECIMEN Procedure Wedge resection Specimen Laterality Left TUMOR Tumor Focality Single focus Tumor Site Lower lobe of lung Tumor Size Total Tumor Size (size of entire tumor) Greatest Dimension (Centimeters): 1.2 cm Histologic Type Invasive solid adenocarcinoma Histologic Grade G2, moderately differentiated Visceral Pleura Invasion Not identified Direct Invasion of Adjacent Structures Not applicable (no adjacent structures present) Treatment Effect No known presurgical therapy Lymphovascular Invasion Venous invasion present MARGINS Margin Status for Invasive Carcinoma All margins negative for invasive carcinoma Closest Margin(s) to Invasive Carcinoma Parenchymal Distance from Invasive Carcinoma to Closest Margin 0.2 cm Margin Status for Non-Invasive Tumor All margins negative for non-invasive tumor REGIONAL LYMPH NODES Lymph Node(s) from Prior Procedures Not included Regional Lymph Node Status All regional lymph nodes negative for tumor Number of Lymph Nodes Examined 4 Mariano Site(s) Examined 4L: Lower paratracheal 5: Subaortic / aortopulmonary (AP) / AP window 8L: Para-esophageal 10L: Hilar PATHOLOGIC STAGE CLASSIFICATION (pTNM, AJCC 8th Edition) Reporting of pT, pN, and (when applicable) pM categories is based on information available to the pathologist at the time the report is issued. As per the AJCC (Chapter 1, 8th Ed.) it is the managing physician's responsibility to establish the final pathologic stage based upon all pertinent information, including but potentially not limited to this pathology report. pT Category pT1b pN Category pN0 ADDITIONAL FINDINGS Additional Findings Emphysema . Special Stains COMMENT: Ancillary immunohistochemistry, performed in good control on separate slides are as follows: Block(s) A3: -- CK7 (IHC; in good control): Positive. -- CK20 (IHC; in good control): Negative. -- TTF-1 (IHC; in good control): Positive. -- P63 (IHC; in good control): Negative. -- P40 (IHC; in good control): Negative. Intraoperative Consultation FROZEN SECTION DIAGNOSIS: FS1 - Non-small cell cancer Real Cabrales M.D. Intraoperative consultation performed at [facility], [address] [place] [id number]; CLIA: [id number]; Joint Commission: [id number]; CAP: [id number] Clinical Information Solitary pulmonary nodule - R91.1 [ICD-10-CM] Disclaimer INFORMED CONSENT:The nature and purpose of the proposed treatment or procedure have been discussed. The risks and benefits of the proposed treatment or procedures have been reviewed. Alternatives have been reviewed in addition to the risks and benefits of not receiving treatments or undergoing procedures. Pursuant to this discussion, the patient agrees to undergo the proposed treatment or procedure. Captured images seen in this note from are not a substitute for a comprehensive interpretation of the entire data set as reflected by the interpreting physician with regard to radiology, echocardiography, and other diagnostic images. This note may have been dictated using [employer] Medical Practice Edition 2.6 and/or [employer] Voice Recognition Feature. The document was proofread, however unrecognized voice recognition 3rd grade teacher errors may be present. documented in this encounter [facility] 09-25-2024 Note Discharge Summary Fozia Breen : 1960 ADMIT DATE: 09/20/2024 DISCHARGE DATE: 09/25/2024 PRIMARY CARE PHYSICIAN: Emilie Wheatley VISIT STATUS: Admission CODE STATUS: Prior DISCHARGE DIAGNOSES: Principal Problem: Lung nodule HOSPITAL COURSE: Patient was taken to OR 09/20/[address] Perez for Diagnostic left thoracoscopy, conversion to open thoracotomy with wedge resection of the left lower lobe lung lesion with frozen section; left lower lobectomy with mediastinal lymph node sampling (levels 8, 10, 12, 5). Tolerated OR well. Was discharged POD5 after Chest tube was removed. Pathology: INVASIVE MODERATELY-DIFFERENTIATED ADENOCARCINOMA DISCHARGE MEDICATIONS: Medication List START taking these medications methocarbamol 500 MG tablet Commonly known as: Robaxin Take 1.5 tablets (750 mg) by mouth every 8 hours for 9 days. CONTINUE taking these medications acetaminophen 500 MG tablet Commonly known as: Tylenol cetirizine 10 MG tablet Commonly known as: ZyrTEC DULoxetine [address] capsule Commonly known as: Cymbalta varenicline 0.5 MG tablet Commonly known as: Chantix VITAMIN D2 PO ASK your doctor about these medications folic acid 1 MG tablet Commonly known as: Folvite HYDROcodone-acetaminophen 5-325 MG tablet Commonly known as: [place] Take 1 tablet by mouth every 4 hours as needed for moderate pain (4-6) for up to 5 days. Ask about: Should I take this medication? leucovorin 15 MG tablet Commonly known as: Wellcovorin methotrexate 2.5 MG tablet predniSONE 5 MG tablet Commonly known as: Deltasone Where to Get Your Medications These medications were sent to [id number], [place] - [address] [address] HYDROcodone-acetaminophen 5-325 MG tablet methocarbamol 500 MG tablet DIET: No diet orders on file ACTIVITY: No restriction. COMPLEXITY OF FOLLOW UP: [] Moderate Complexity: follow up within 7-14 calendar days (97821) [] Severe Complexity: follow up within 7 calendar days (31617) FOLLOW UP TESTING, PENDING RESULTS OR REFERRALS AT TRANSITIONAL CARE VISIT: [] Yes [] No PENDING STUDIES: none DISPOSITION: Home FACILITY/HOME CARE AGENCY NAME: Follow up with Lala Gonzales, ENGINEERING DRAFTER - BEEF GRINDER [address] [address] Go on 10/09/2024 Time: 10:00am, Post-op lung surgery follow up, (MARIAN with Dr. Perez) Emilie Wheatley MD [address] [facility] [phone] INSTRUCTIONS TO MA/SW: Please call patient on day after discharge (must document patient contacted within 2 business days of discharge). FOLLOW UP QUESTIONS FOR MA/SW: 1. Did you get medications filled and taking them as instructed from discharge? 2. Are you following your discharge instructions from your hospital stay? 3. Please confirm patient is scheduled for a follow up appointment within the above time frame. DISCHARGE TIME: <30 minutes SIGNED: Moises Pacheco MD 10/01/2024, 10:25 PM [facility] 09-25-2024 Note Formatting of this n ote might be different from the original. Discharged with home O2. No distress noted. [facility] 09-25-2024 Note Formatting of this n ote might be different from the original. Discharged with home O2. No distress noted. [facility] 09-25-2024 Miscellaneous Notes Discharged with home O2. No distress noted. Home O2 eval done, patient did drop sats to [address] Perez visited patient ok for discharge. Problem: Pain - Adult Goal: Verbalizes/displays adequate comfort level or baseline comfort level Outcome: Progressing Problem: Safety - Adult Goal: Free from fall injury Outcome: Progressing Problem: Discharge Planning Goal: Discharge to home or other facility with appropriate resources Outcome: Progressing Problem: Chronic Conditions and Co-morbidities Goal: Patient's chronic conditions and co-morbidity symptoms are monitored and maintained or improved Outcome: Progressing Problem: Pain Goal: My pain/discomfort is manageable Outcome: Progressing Problem: Safety Goal: Patient will be injury free during hospitalization Outcome: Progressing Problem: Daily Care Goal: Daily care needs are met Outcome: Progressing Problem: Psychosocial Needs Goal: Demonstrates ability to cope with hospitalization/illness Outcome: Progressing Goal: Collaborate with me, my family, and caregiver to identify my specific goals Outcome: Progressing Problem: Discharge Barriers Goal: My discharge needs are met Outcome: Progressing Chest tubes removed per Dr. Aparicio. Tolerated well. Case Management Progress Note: Patient transferred to s/p L thoracotomy and LLLobectomy for NSCLS Discharge Plan: Home. Per chart review. Patient noted with 2 CT's. Plan a clamp trial this afternoon. ? O2 need at discharge, currently 2L. Problem: Pain - Adult Goal: Verbalizes/displays adequate comfort level or baseline comfort level Outcome: Progressing Problem: Safety - Adult Goal: Free from fall injury Outcome: Progressing Problem: Discharge Planning Goal: Discharge to home or other facility with appropriate resources Outcome: Progressing Problem: Chronic Conditions and Co-morbidities Goal: Patient's chronic conditions and co-morbidity symptoms are monitored and maintained or improved Outcome: Progressing Problem: Pain Goal: My pain/discomfort is manageable Outcome: Progressing Problem: Safety Goal: Patient will be injury free during hospitalization Outcome: Progressing Goal: I will remain free of falls Outcome: Progressing Problem: Daily Care Goal: Daily care needs are met Outcome: Progressing Problem: Psychosocial Needs Goal: Demonstrates ability to cope with hospitalization/illness Outcome: Progressing Goal: Collaborate with me, my family, and caregiver to identify my specific goals Outcome: Progressing Problem: Discharge Barriers Goal: My discharge needs are met Outcome: Progressing Care Management Progress Note Consults to IP CONSULT TO ANESTHESIOLOGY - ACUTE PAIN SERVICE Initial Assessment: Chart reviewed. Patient has insurance and PCP listed on EHR. CM notified assigned RN no emergency contacts on chart. Patient documented as AO4. Assigned RN to notify CM/SW if NOK search needed. CM will follow for discharge planning. Discharge Planning/Barrier: 09/21/24 0750 Rapid Rounds Attendance Senior Physician Planned Discharge Disposition Other (TBD) Today we still await Administering IV medications;Clinical stability;Energy Engineer recommendations (comment);Symptomatic control Additional Comments: SEALS ENGRAVER pain pump, chest tubes, PT/OTpending Discharge Plan: TBD. Case management will continue to follow for discharge planning. Length of Stay (Days): 1 GMLOS: No GMLOS Documented Patient family/visitor updated by RN at this time. Images from the original note were not included. [facility] Cardiothoracic Surgery Operative Report Pre-operative Diagnosis: PET positive left lower lobe lung nodule suspicious for malignancy Post-operative Diagnosis: Same, frozen section consistent with non-small cell lung cancer Procedure: Diagnostic left thoracoscopy, conversion to open thoracotomy with wedge resection of the left lower lobe lung lesion with frozen section; left lower lobectomy with mediastinal lymph node sampling (levels 8, 10, 12, 5) Surgeon: Lee Ann Perez MD Hr Recruiter(s): NO Pacheco MD Anesthesia: General Estimated blood loss: 100 cc Total IV fluids: See anesthesia record Drains: Pleural drains left in place Specimens: Wedge resection left lower lobe, completion left upper lobectomy, mediastinal lymph nodes resections 8, 10, 12, 5 Complications: None Condition: Stable Prophylactic Antibiotics: Yes 1st or 2nd generation cephalosporin given (or other antibiotic in the event of an allergy) within 1 hour of surgical incision (two hours if receiving Vancomycin or flouroquinolone) If NO, indication reason why: [] Patient on continuous antibiotics for documented preoperative infection [] Other: Classification of Wound Prior to Procedure: II Classification of Wound After Procedure: II INDICATIONS FOR PROCEDURE: A PET positive, growing lung nodule within the left lower lobe was discovered in a 63 YO current smoker with a long standing history of rheumatoid arthritis. This lesion was originally detected and measured 5mm (we have no record of that imaging). Presently, the lesion in the LLL measures 10mm and is PET-avid. The treatment options that we discussed included continued observation, needle biopsy, or surgical excisional biopsy via wedge resection with frozen section and lower lobectomy if malignancy was identified. The risks benefits and alternatives to all of these options were discussed and patient wishes to proceed with the most definitive excisional biopsy and lobectomy at the same setting if frozen section proved the lesion to be malignant. DESCRIPTION OF PROCEDURE: Patient was brought to the operative suite in the fasting state. General endotracheal anesthesia was instituted and a double-lumen endotracheal tube was placed for isolation of the lung. IVs and arterial monitoring were arranged by the department of anesthesia. Patient was placed on the lateral decubitus position preparation for left thoracoscopy. After the patient was positioned prepped and draped, timeout was conducted. We began with a thoracoscopic evaluation of the left lung. A small incision was made as the lung was isolated and the thoracoscope was inserted through a Thoracoport. An accessory port was placed as well and this allowed us to visualize the entire lung. No evidence of malignancy was seen on the surface of the lung. The undersurface of the rib cage was free of pathology. Attempted identification of the left lower lobe nodule was unsuccessful. Therefore, we converted to a open muscle-sparing minithoracotomy. Access was gained to the 6 intercostal space. At that point we palpated the lung and were able to identify the nodule just below the surface of the lung on the left lower lobe. Using a linear stapler, a wedge resection was performed to incorporate this mass into the specimen. The specimen was sent for pathologic evaluation. Frozen section revealed that this was a non-small cell carcinoma. Therefore, we proceeded with left lower lobectomy as was discussed preoperatively. The left lower lobectomy was performed by mobilizing the inferior pulmonary ligament and mobilizing the hilum anteriorly posteriorly. We then identified the left lower lobe pulmonary vein and isolated and simultaneously stapled and transected using a stapler. The pulmonary arterial branches were then dissected free from the main left-sided pulmonary artery. Again these were individually isolated/selectively stapled and transected using a linear stapler. We completed the fissural attachments with a combination of cautery and a linear stapler. Once we had completely severed all vascular connections to the left lung, we fired a staple across the lower lobe bronchus after assuring that there was good aeration of the remainder of the lung. Specimen was sent for pathologic evaluation. The bronchial stump was tested to 30 cm of pressure and no air leaks were seen. We again proceeded with mediastinal lymph node sampling and sampled lymph nodes from level 5 as well as levels 8, 10, 12). These were sent separately labeled containers. Once the nodes had been sent for pathologic evaluation, chest tubes were inserted through 2 of the trocar's plates that were placed previously and appropriately positioned within the hemithorax. We then reexpanded the lung and having seen no significant air leaks we proceeded with closure of the ribs were reapproximated with #2 Vicryl's and the overlying tissues were closed multiple layers. The patient was awakened extubated to recovery room in stable condition. Date: 09/20/2024 Location: [facility] OR Name: Fozia Breen DOB: 1960, Diagnosis Pre-op Diagnosis * Solitary pulmonary nodule [R91.1] Post-op Diagnosis * Solitary pulmonary nodule [R91.1] Procedures THORACOSCOPY WITH WEDGE RESECTION LEFT LOWER LOBE 17177 - IA THORACOSCOPY W/DX WEDGE RESEXN ANATO LUNG RESEXN LOBECTOMY, LUNG, OPEN 09219 - IA RMVL LUNG OTHER THAN PNEUMONECTOMY 1 LOBE LOBECT Surgeons * Lee Ann Perez - Primary Procedure Summary Anesthesia: General ASA: III Estimated Blood Loss: 50 mL Drains: Chest Tube 1 Left Fourth intercostal space 28 Fr (Active) Function To water seal 09/20/24 162 Dressing Status Clean, dry & intact 09/20/24 162 Site Assessment Not assessed 09/20/24 1625 Chest Tube 2 Left Fourth intercostal space 24 Fr (Active) Function To water seal 09/20/24 1625 Dressing Status Clean, dry & intact 09/20/24 1625 Site Assessment Not assessed 09/20/24 1625 Specimens ID Source Type Tests Collected By Collected At Frozen? Priority Lab ID 1 Lung, Left Lower Lobe Tissue TISSUE EXAM Lee Ann Perez MD 09/20/24 1440 Yes Description: Left Lower Lobe Wedge Resection 2 Lung, Left Lower Lobe Tissue TISSUE EXAM Lee Ann Perez MD 09/20/24 1522 Description: Left Lower Lobe 3 Lymph Node Tissue TISSUE EXAM Lee Ann Perez MD 09/20/24 1523 Description: Level 5 4 Lymph Node Tissue TISSUE EXAM Lee Ann Perez MD 09/20/24 1524 Description: Level 4 5 Lymph Node Tissue TISSUE EXAM Lee Ann Perez MD 09/20/24 1526 Description: level 8 6 Lymph Node Tissue TISSUE EXAM Lee Ann Perez MD 09/20/24 1527 Description: level 10 Staff: Iron Pellet Tester: Nina Arredondo RN; Jolly Arteaga RN Relief Iron Pellet Tester: Pepe Cruz RN Scrub Person: Yamile Medina RN; Cary Bustamante RN Findings: No air leak post op X2 chest tubes Intra op frozen - NSCLC Complications: None; patient tolerated the procedure well. Specimens Collected: Order Name Source Comment Collection Info Order Time POTASSIUM WITH MG REFLEX For patients on dialysis to draw potassium day of surgery 09/20/2024 10:06 AM PROTHROMBIN TIME If patient on coumadin within 4 days prior. 09/20/2024 10:06 AM BLOOD TYPE AND SCREEN GEL Blood, Venous Collected By: Ashlyn Riggs RN 09/20/2024 10:07 AM HEMOGLOBIN AND HEMATOCRIT, BLOOD Blood, Venous Collected By: Ashlyn Riggs RN 09/20/2024 10:07 AM TISSUE EXAM Lung, Left Lower Lobe Collected By: Lee Ann Perez MD 09/20/2024 2:40 PM Wound Class: Class I: Clean Blood Products: None Prophylactic Antibiotics: Procedure appropriate prophylactic antibiotic(s) given within 1 hour of surgical incision (two hours if receiving Vancomycin or flouroquinolone) Moises Pacheco MD PGY5, General Surgery Pager #[phone] Patient stable at this time. Patient denies ringing in ears, numbness or tingling. Family at bedside. Pt declined Xanax at this time. documented in this encounter [facility] 09-25-2024 Plan of care note Home O2 eval done, patient did drop sats to [address] Perez visited patient ok for discharge. [facility] 09-25-2024 Note RTHOMEO2[[id number]] Res piratory Therapy Home O2 Progress Note O2 saturation at rest on room air: 93% If saturation is 88% or less O2 saturation on O2 at n/a LPM while at rest: n/a O2 saturation on exertion must be checked if patient is able regardless of O2 saturation at rest O2 saturation with exertion on room air: 85% (NA if patient needs O2 at rest) O2 saturation on O2 at 2 LPM with exertion: 90% Patient meets criteria for home O2 Y/N = Y Patient mobile at home Y/N = Y DME Notified Y Pt also needs portable 02 concentrator. Pt requires 2L O2 on exertion. [facility] 09-25-2024 History of Presen t illness Narrative RTHOMEO2[[id number]] Respiratory Therapy Home O2 Progress Note O2 saturation at rest on room air: 93% If saturation is 88% or less O2 saturation on O2 at n/a LPM while at rest: n/a O2 saturation on exertion must be checked if patient is able regardless of O2 saturation at rest O2 saturation with exertion on room air: 85% (NA if patient needs O2 at rest) O2 saturation on O2 at 2 LPM with exertion: 90% Patient meets criteria for home O2 Y/N = Y Patient mobile at home Y/N = Y DME Notified Y Pt also needs portable 02 concentrator. Pt requires 2L O2 on exertion. Cosigned by Lee Ann Perez MD at 09/25/2024 9:50 AM EDT Department of General Surgery Daily Progress Note SUBJECTIVE: NAEON. Pain well controlled this morning. OOB to chair. CT out last night after clamp trial. AM CXR pending OBJECTIVE: VITALS: BP 142/90 Pulse 94 Temp 36.2 C (97.1 F) (Temporal) Resp 16 Wt 82.9 kg (182 lb 12.8 oz) SpO2 96% BMI 34.54 kg/m INTAKE/OUTPUT: @IODETAILS@ I/O last 3 completed shifts: In: 1870 (22.6 mL/kg) [P.O.:1870] Out: 105 (1.3 mL/kg) [Chest Tube:105] Weight: 82.9 kg No intake/output data recorded. PHYSICAL EXAM: Gen: NAD, alert, pain well controlled Heart: RRR, well perfused Lungs: symmetric chest rise, normal work of breathing. CT out, site dry, bandaid replaced Abd: soft, non tender, non distended. Non rigid. Ext: no c/c/e no gross deformities Skin: warm, well perfused, <2 cm cap refill, no obvious rashes, cellulitis or gross discoloration LABS CBC: Recent Labs 09/23/24 0503 09/24/24 0114 WBC 11.7* 8.0 HGB 12.6 12.2 HCT 39.4 37.5 PLT 259 277 BMP: Recent Labs 09/23/24 0503 09/24/24 0114 NA 136 136 K 4.5 4.1 CL 99 99 CO2 27 28 BUN 15 13 CREATININE 0.67 0.68 GLUCOSE 107 121* Hepatic: No results for input(s): "AST", "ALT", "BILITOT", "ALKPHOS" in the last 72 hours. No lab exists for component: "ALB" Current Inpatient Medications Scheduled Meds:Scheduled Meds[1] Continuous Infusions:Continuous Meds[2] PRN Meds:PRN Meds[3] ASSESSMENT AND PLAN: 63 y.o. female s/p L thoracotomy and LLLobectomy for NSCLS -Diet as khoa, SLIV -Home meds -CT removed 09/24 -Lovenox ppx -DC labs -Wean o2 - goal >88% with smoking hx -Going home with home O2 -Await am CXR (post CT pull CXR0 then DC home this am with family Response to CDI Query: PT has no lab findings of CKD this admission with normal CR and CR clearance Staff: Will discuss with Dr. Ana Pacheco MD PGY5, General Surgery Pager #[phone] [1] cetirizine, 10 mg, Oral, Daily DULoxetine, 60 mg, Oral, Nightly enoxaparin, 40 mg, SubCUTAneous, q24h mupirocin, 1 Application, Nasal, BID senna-docusate sodium, 2 tablet, Oral, Daily sodium chloride 0.9%, 5-40 mL, IntraVENous, 2 times per day [2] [3] PRN medications: calcium carbonate, diphenhydrAMINE, HYDROcodone - acetaminophen OR HYDROcodone - acetaminophen, HYDROmorphone OR HYDROmorphone, labetalol, magnesium hydroxide, methocarbamol, naloxone, ondansetron ODT OR ondansetron, polyethylene glycol (PEG) 3350, sodium chloride, sodium chloride 0.9% Cosigned by Lee Ann Perez MD at 09/25/2024 9:50 AM EDT Left chest tubes removed. Occlusive dressing applied. Patient tolerated well. Images from the original note were not included. PHYSICAL THERAPY [facility] Treatment Note Name/MRN: Fozia Breen ([id number]) Date of : 1960 Age: 63 y.o. [facility] Discharge Recommendation: Home with assist PRN Equipment Needed: No Prior Level of Function Prior Level of ADL Function: Independent Prior Level of Mobility: Independent; Device: None Prior Level of Transfers: Independent Assessment Patient remains limited by dyspnea on exertion. However she demonstrates improving mobility. Patient performed sit <> stand transfers with modif indep. Patient ambulated up to 150 feet using FWW with supervision and and up to 150 feet without a device with supervision. O2 assessed during ambulation with and without oxygen (per RN); on RA noted O2 sats down to 84% but improving to 88% with rest break. With 2L O2 sats were 97-90%, RN informed. Recommend home with assist PRN. Subjective RN cleared patient for PT eval, asking to ambulate patient without O2. Patient up in recliner, pleasant and agreeable to therapy. Pain: L ribs Medical Precautions: No active isolations Proper PPE donned/doffed in accordance with facility standards. Fall Risk: Domingo Fall Risk Score: 35 (Medium Risk) Precautions/Restrictions: Lines/Drains/Airways: chest tubes x2, 2L O2 Overall Cognitive Status: WNL Overall Orientation Status: Oriented x4 Family/Caregiver Present: child(sarah) Objective Transfers/Mobility Sit to stand: Modified Independent Stand to sit: Modified Independent From recliner x2 reps, cues for hand placement Device(s) used: None and Front wheeled walker Ambulation Ambulation 1 Assistive device(s) used: Front wheeled walker Assist level: Supervision Distance (ft): 80 x2, 150 Quality of gait: No LOB, slow kirsten, mild dyspnea. O2 assessed during ambulation with and without oxygen (per RN); on RA noted O2 sats down to 84% but improving to 88% with rest break. With 2L O2 sats were 97-90%, RN informed. Ambulation 2 Assistive device(s) used: None Assist level: Supervision Distance (ft): 150 Quality of gait: No LOB, wide LONNIE, slow kirsten, postural sway, O2 sats 87% on 2L, up to 90% with seated rest and pursed-lip breathing. Exercises Other exercises Other exercises?: Yes Other exercises 1: IS x10 reps, 500-1000ml, cues for improved technique Plan Continue acute PT per plan of care. Safety/Education Safety Safety Devices in place: call light within reach, left in chair, nurse notified, and no alarms engaged upon entry Restraints: No Education Education Given To: patient Education Provided: PT Goals, Gait Training, Plan of Care, Discharge Recommendations, and Breathing Techniques Education Method: Verbal Barriers to Learning: None Education Outcome: Verbalized Understanding Outcome Measures AM-PAC AM-PAC Inpatient Mobility Raw Score (No Stairs) : 19 JH-HLM -HLM Score: Walked 250 ft or more (i.e. several laps on unit) Goals Patient Stated Goal: To go home soon Encounter Problems Encounter Problems (Active) Cardiac Patient will be independent with P&C exercises. (Not Addressed) Start: 09/21/24 Expected End: 10/19/24 Patient will be independent with managing secretions and home walking program. (Progressing) Start: 09/21/24 Expected End: 10/19/24 Mobility Patient will ambulate 350 feet with modified independence and least restrictive device in order to improve safety and independence with mobility. (Progressing) Start: 09/21/24 Expected End: 10/19/24 Patient will ascend and descend 1 stairs with one railing and modified independence in order to safely negotiate home. (Not Addressed) Start: 09/21/24 Expected End: 10/19/24 Pain - Adult Transfers Patient will perform bed mobility with modified independence in order to improve independence and prepare for out of bed mobility. (Not Addressed) Start: 09/21/24 Expected End: 10/19/24 Patient will complete functional transfer with least restrictive device with modified independence in order to prepare for ambulation. (Progressing) Start: 09/21/24 Expected End: 10/19/24 Therapy Time Individual Co-treatment Time In 1432 Time Out 1456 Minutes 24 Timed Code Treatment Minutes: 24 Minutes (gait x2) Cydney Billings, PT Saw patient [address] removal. Had trace air leak with cough. Plan CT clamp trial [id number], CXR 1630. Can remove CT this pm if no PTX on CXR. Moises Pacheco MD PGY5, General Surgery Pager #[phone] Department of General Surgery Daily Progress Note SUBJECTIVE: NAEON. Pain well controlled this morning. OOB to chair. Ambulated. CT 170serous output, no AL in CT this am, CXR stable OBJECTIVE: VITALS: BP 138/91 (BP Location: Right arm, Patient Position: Sitting) Pulse 117 Temp (!) 35.7 C (96.2 F) (Temporal) Resp 18 Wt 85 kg (187 lb 4.8 oz) SpO2 94% BMI 35.39 kg/m INTAKE/OUTPUT: @IODETAILS@ I/O last 3 completed shifts: In: 1100 (12.5 mL/kg) [P.O.:1100] Out: 284 (3.2 mL/kg) [Chest Tube:284] Weight: 88.2 kg No intake/output data recorded. PHYSICAL EXAM: Gen: NAD, alert, pain well controlled Heart: RRR, well perfused Lungs: symmetric chest rise, normal work of breathing. CT in place x 2 170 ss output, no air leak with cough, on water seal Abd: soft, non tender, non distended. Non rigid. Ext: no c/c/e no gross deformities Skin: warm, well perfused, <2 cm cap refill, no obvious rashes, cellulitis or gross discoloration LABS CBC: Recent Labs 09/22/24 0510 09/23/24 0503 09/24/24 0114 WBC 15.4* 11.7* 8.0 HGB 13.4 12.6 12.2 HCT 42.8 39.4 37.5 PLT 304 259 277 BMP: Recent Labs 09/22/24 0510 09/23/24 0503 09/24/24 0114 NA 135* 136 136 K 4.7 4.5 4.1 CL 99 99 99 CO2 24 27 28 BUN 20 15 13 CREATININE 0.75 0.67 0.68 GLUCOSE 121* 107 121* Hepatic: No results for input(s): "AST", "ALT", "BILITOT", "ALKPHOS" in the last 72 hours. No lab exists for component: "ALB" Current Inpatient Medications Scheduled Meds:Scheduled Meds[1] Continuous Infusions:Continuous Meds[2] PRN Meds:PRN Meds[3] ASSESSMENT AND PLAN: 63 y.o. female s/p L thoracotomy and LLLobectomy for NSCLS -Diet as khoa, SLIV -Home meds -Increase bowel reg = + BM 09/23 -CT to water seal - air leak gone this am, will remove CT -AM CXR tomorrow -Lovenox ppx -DC labs -Wean o2 - goal >88% with smoking hx -Goal DC Home tu am Response to CDI Query: PT has no lab findings of CKD this admission with normal CR and CR clearance Staff: Will discuss with Dr. Ana Pacheco MD PGY5, General Surgery Pager #[phone] [1] cetirizine, 10 mg, Oral, Daily DULoxetine, 60 mg, Oral, Nightly enoxaparin, 40 mg, SubCUTAneous, q24h magnesium hydroxide, 30 mL, Oral, Daily mupirocin, 1 Application, Nasal, BID polyethylene glycol (PEG) 3350, 17 g, Oral, BID senna-docusate sodium, 2 tablet, Oral, Daily sodium chloride 0.9%, 5-40 mL, IntraVENous, 2 times per day [2] [3] PRN medications: calcium carbonate, diphenhydrAMINE, HYDROcodone - acetaminophen OR HYDROcodone - acetaminophen, HYDROmorphone OR HYDROmorphone, labetalol, methocarbamol, naloxone, ondansetron ODT OR ondansetron, sodium chloride, sodium chloride 0.9% Cosigned by Lee Ann Perez MD at 09/25/2024 9:50 AM EDT Images from the original note were not included. OCCUPATIONAL THERAPY [facility] Initial Evaluation Name/MRN: Fozia Breen ([id number]) Evaluation Date: 09/23/2024 Date of : 1960 Admission Date: 09/20/2024 9:54 AM Age: 63 y.o. [facility] Discharge Recommendation: Home with assist PRN, Home independently Equipment Needed: No Assessment IMPRESSION: Patient admit due to lung nodule s/p thoracoscopy with wedge resection of left upper lobe and lobectomy on 09/20/24. 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 Patient presents this session near baseline with fatigue and pain limitations only. Patient completed ADL, transfers, mobility with mod I for increased time. IP OT services are not warranted at this time. OT recommends patient DC to home with assist as needed from family for higher level/ heavy lifting IADLs. Admitting Diagnosis: lung nodule s/p thoracoscopy with wedge resection of left upper lobe and lobectomy on 09/20/24. Performance Deficits /Impairments: Increased Pain and Decreased Endurance Prognosis: Good Decision Making: Low Complexity Subjective Patient agreeable to OT session, RN cleared patient for therapy . Pain: 0-10 pain scale: 2/10 Location: back Past Medical History: Medical History[1] Past Surgical History: Surgical History[2] Admission Diagnosis: Patient Active Problem List Diagnosis Date Noted Lung nodule 09/20/2024 Medical Precautions: No active isolations Proper PPE donned/doffed in accordance with facility standards. Fall Risk: Domingo Fall Risk Score: 35 (Medium Risk) Precautions/Restrictions: Lines/Drains/Airways: tele, continuous pulse ox, chest tubes x2 Family/Caregiver Present: none Overall Cognitive Status: WNL Overall Orientation Status: Oriented x4 Social/Functional History Patient admitted from home. Lives With: mother Type of Home: duplex home Home Layout: Single Level Home Home Access: Stairs to Enter with Rails (# of stairs: 1) Bathroom Shower/Tub: Tub/Shower Combo, Shower Chair with Back, and Grab Bars Toilet: Home Equipment: front wheeled walker, bedside commode, shower seat, and transport wheelchair Homemaking Responsibilities: Independent Receives Help From: None Active Assisted Living Associate: Yes Prior Level of Function Prior Level of ADL Function: Independent Prior Level of Mobility: Independent; Device: None Prior Level of Transfers: Independent Objective ADLs LE Dressing: Modified Independent UE Dressing: Modified Independent Upper Extremity Assessment AROM: WFL PROM: Not assessed this session Strength: WFL Transfers/Mobility Sit to stand: Modified Independent Stand to sit: Modified Independent Sitting balance: Modified Independent Standing balance: Modified Independent Functional mobility: Modified Independent Patient used FWW for support, edu provided on benefits of using FWW for stability and to conserve energy during functional activities. Device(s) used: Front wheeled walker AM-PAC AM-PAC Inpatient Daily Activity Raw Score: 24 ADL Inpatient CMS G-Code Modifier: CH Plan No skilled acute OT indicated at this time. Please reconsult should changes occur. Safety/Education Safety Safety Devices in place: All fall risk precautions in place, call light within reach, and left in chair Restraints: No Education Education Given To: patient Education Provided: OT Role, Precautions, ADL Adaptive Strategies, Transfer Training, Energy Conservation, IADL Safety, Equipment, Fall Prevention Education, Discharge Recommendations, and Benefits of Increasing Activity Education Method: Verbal and Demonstration Barriers to Learning: None Education Outcome: Verbalized Understanding Goals Patient Stated Goal: go home, no pain Therapy Time Individual Co-Treatment Co-Evaluation Time In 0309 Time Out 0320 Minutes 11 Cary Mclean OT Patient's Occupational Therapy Plan of Care supervision is transferred to a [facility] Occupational Therapist. Goals and/or treatment plan was established in collaboration with patient/family/other representatives. [1] Past Medical History: Diagnosis Date Allergies Anemia with Arthritis Carpal tunnel syndrome, right Chronic kidney disease COPD (chronic obstructive pulmonary disease) (HCC) Disease of thyroid gland Pulmonary nodule [2] Past Surgical History: Procedure Laterality Date CARPAL TUNNEL RELEASE Right COLONOSCOPY DILATION AND CURETTAGE OF UTERUS EXPLORATORY LAPAROTOMY HYSTERECTOMY 1995 [place] REMV LUNG, WEDGE RESECTION AND ANATOMIC LUNG RESECTION (HISTORICAL) Left 09/20/2024 Department of General Surgery Daily Progress Note SUBJECTIVE: NAEON. Pain well controlled this morning. OOB to chair. Ambulated. Sq714ml SS output, slight AL in rigid CT OBJECTIVE: VITALS: BP 133/82 (BP Location: Right arm, Patient Position: Sitting) Pulse 120 Temp 36.2 C (97.2 F) (Temporal) Resp 24 Wt 88.2 kg (194 lb 7.1 oz) SpO2 95% BMI 36.74 kg/m INTAKE/OUTPUT: @IODETAILS@ I/O last 3 completed shifts: In: 500 (5.7 mL/kg) [P.O.:500] Out: 400 (4.5 mL/kg) [Chest Tube:400] Weight: 88.2 kg I/O this shift: In: - Out: 29 [Chest Tube:29] PHYSICAL EXAM: Gen: NAD, alert, pain well controlled Heart: RRR, well perfused Lungs: symmetric chest rise, normal work of breathing. CT in place x 2 150 ss output, no air leak with cough, on water seal Abd: soft, non tender, non distended. Non rigid. Ext: no c/c/e no gross deformities Skin: warm, well perfused, <2 cm cap refill, no obvious rashes, cellulitis or gross discoloration LABS CBC: Recent Labs 09/21/24 0450 09/22/24 0510 09/23/24 0503 WBC 18.6* 15.4* 11.7* HGB 12.8 13.4 12.6 HCT 38.9 42.8 39.4 PLT 284 304 259 BMP: Recent Labs 09/21/24 0450 09/22/24 0510 09/23/24 0503 NA 133* 135* 136 K 4.5 4.7 4.5 CL 101 99 99 CO2 21* 24 27 BUN 17 20 15 CREATININE 0.77 0.75 0.67 GLUCOSE 159* 121* 107 Hepatic: No results for input(s): "AST", "ALT", "BILITOT", "ALKPHOS" in the last 72 hours. No lab exists for component: "ALB" Current Inpatient Medications Scheduled Meds:Scheduled Meds[1] Continuous Infusions:Continuous Meds[2] PRN Meds:PRN Meds[3] ASSESSMENT AND PLAN: 63 y.o. female POD 4 s/p L thoracotomy and LLLobectomy for NSCLS -Diet as khoa, SLIV -Home meds -Increase bowel reg -CT to water seal - monitor air leak for now -Daily CXR -Lovenox ppx -Txf to floor Staff: Will discuss with Dr. Ana Pacheco MD PGY5, General Surgery Pager #[phone] [1] cetirizine, 10 mg, Oral, Daily DULoxetine, 60 mg, Oral, Nightly enoxaparin, 40 mg, SubCUTAneous, q24h magnesium hydroxide, 30 mL, Oral, Daily mupirocin, 1 Application, Nasal, BID [START ON 09/24/2024] polyethylene glycol (PEG) 3350, 17 g, Oral, BID senna-docusate sodium, 2 tablet, Oral, Daily sodium chloride 0.9%, 5-40 mL, IntraVENous, 2 times per day [2] [3] PRN medications: calcium carbonate, diphenhydrAMINE, HYDROcodone - acetaminophen OR HYDROcodone - acetaminophen, HYDROmorphone OR HYDROmorphone, labetalol, methocarbamol, naloxone, ondansetron ODT OR ondansetron, sodium chloride, sodium chloride 0.9% Cosigned by Lee Ann Perez MD at 09/25/2024 9:50 AM EDT Images from the original note were not included. PHYSICAL THERAPY [facility] Treatment Note Name/MRN: Fozia Breen ([id number]) Date of : 1960 Age: 63 y.o. Room/Bed: T1-123/T1-123 A Discharge Recommendation: Home with assist PRN Equipment Needed: No (has walker, transport chair, shower chair, BSC) Prior Level of Function Prior Level of ADL Function: Independent Prior Level of Mobility: Independent; Device: None Prior Level of Transfers: Independent Assessment Patient is progressing well towards goals. Able to perform transfers with supervision and ambulates lap around unit with nezzi and SBA. O2 noted to drop to mid 80s with ambulation while on 2L, requires 1-2 min rest to recover. SBA for stair training, good technique and no LOB. Performed P+C exercises for ROM and pain relief, patient reports decrease to 3/10 pain after performing. Anticipate patient will safely discharge home with assist PRN. Subjective Seated in recliner upon arrival, agreeable to PT. Cleared for therapy by RN. Pain: 0-10 pain scale: 5/10 Location: L side Medical Precautions: No active isolations Proper PPE donned/doffed in accordance with facility standards. Fall Risk: Domingo Fall Risk Score: 35 (Medium Risk) Precautions/Restrictions: Lines/Drains/Airways: tele, continuous pulse ox, chest tubes x2 Overall Cognitive Status: WNL Overall Orientation Status: Oriented x4 Family/Caregiver Present: none Objective Transfers/Mobility Sit to stand: Supervision Stand to sit: Supervision Good technique, no instability Device(s) used: Nezzie Ambulation Ambulation 1 Assistive device(s) used: Nezzie Assist level: SBA Distance (ft): 350ft Quality of gait: reciprocal stepping, narrow LONNIE, slow kirsten. Monitored O2 during ambulation, patient reports having muscle spasm in chest in which O2 decreased to 85% while on 2L; recovered with short standing rest. Balance During Session: Posture: good Sitting - Static: Independent Sitting - Dynamic: Independent Standing - Static: SBA Standing - Dynamic: SBA Stairs Stairs 1 Assistive device(s) used: None Assist level: SBA # of steps: 4 Rails: left Additional factors: reciprocal going up, reciprocal going down Exercises Exercises Comments: P&C 3 exercises 1-9 x10 reps each; provided booklet, cues for technique and ROM. Encouraged to perform 2x daily. Reports improvement in pain from 5/10 to 3/10 after performing. Plan Continue acute PT per plan of care. Safety/Education Safety Safety Devices in place: All fall risk precautions in place, call light within reach, and left in chair Restraints: No Education Exercises, gait, stairs Outcome Measures AM-PAC AM-PAC Inpatient Mobility Raw Score : 20 AM-PAC Inpatient Mobility Raw Score (No Stairs) : 17 JH-HLM JH-HLM Score: Walked 250 ft or more (i.e. several laps on unit) Goals Patient Stated Goal: To go home this weekend Encounter Problems Encounter Problems (Active) Cardiac Patient will be independent with P&C exercises. Start: 09/21/24 Expected End: 10/19/24 Patient will be independent with managing secretions and home walking program. Start: 09/21/24 Expected End: 10/19/24 Mobility Patient will ambulate 350 feet with modified independence and least restrictive device in order to improve safety and independence with mobility. (Progressing) Start: 09/21/24 Expected End: 10/19/24 Patient will ascend and descend 1 stairs with one railing and modified independence in order to safely negotiate home. (Progressing) Start: 09/21/24 Expected End: 10/19/24 Pain - Adult Transfers Patient will perform bed mobility with modified independence in order to improve independence and prepare for out of bed mobility. (Not Addressed) Start: 09/21/24 Expected End: 10/19/24 Patient will complete functional transfer with least restrictive device with modified independence in order to prepare for ambulation. (Progressing) Start: 09/21/24 Expected End: 10/19/24 Therapy Time Individual Co-treatment Time In 0845 Time Out 0916 Minutes 31 Timed Code Treatment Minutes: 31 Minutes (Blue, TP) Nga Noriega PTA Cosigned by Erika Chan, PT at 09/23/2024 9:47 AM EDT PAGING: The Acute Pain Service providers are available exclusively via [employer]. APS does not utilize pagers. 09/22/2024 Discharge Recommendations: [place] 1-2 tablets q8h prn for mod / severe pain Robaxin 750mg PO q8h prn for muscle spasms Stool softeners Pain Management Adjuvants: 0700 --> 0700 09/21/24 Scheduled APAP 650mg Gabapentin Lidocaine patches PRN Hydromorphone IV Methocarbamol Oxycodone [place] 8 tablets Assessment / Pain Management Plan: Recommendations made, will sign off at this time. Thank you for inviting us to participate in the care of this patient. Acute Postsurgical Chest pain Multimodal pain regimen: BLOCK: Serratus Anterior 09/20/24 Pt requested [place] post operatively 09/21/24 Does not want IV pain medications, does not feel she does well on them Continue Hydromorphone 0.25 mg - 0.5 mg IVP q4h prn moderate to severe breakthrough pain. Please utilize oral medications first. Continue Naloxone 0.4 mg IVP prn opioid reversal. PRN if respiratory rate is less than 6/min and patient is difficult to arouse then notify physician STAT. Mix 9 mL of sodium chloride 0.9% with 0.4 mg (1 mL) of naloxone (NARCAN) in 10 mL syringe. (Note: dilution is 0.04 mg/mL) Give 0.08 mg (2 mL of special dilution), slow IV push, repeat up to 0.4 mg (10 mL) or until patient is responsive to physical stimulation and respiratory rate is equal to or greater than 6 breaths/min. Continue to observe, if no response within 3 minutes of administration of 0.4 mg (10 mL) total, repeat dose (0.4 mg as administered previously). 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 Patient's Medications have been reviewed. PMH reviewed below Opioid Use, Acute Reviewed and educated patient on responsible use of opioids: after surgery, it can be normal to experience pain. If it is mild and you can move about without great difficulty or discomfort, you may not need to take pain medication. It is very important to take your pain medication only as needed. Avoiding excessive or unnecessary medication, will enable you to progress your activity each day to improve your muscle tone and movement, deep breathing, digestion, circulation and your body's ability to heal itself. OARRS reviewed for past two years. (No opiates RX filled) Constipation At risk for opioid induced constipation Patient currently receiving opioids for pain management necessitating a bowel regimen. Recommend initiating scheduled Sennakot-S 8.6/50mg, 1 tablet PO BID. Would also recommend Milk of Magnesia 400mg/5ml, administer 30mL by mouth daily PRN. Plan discussed with patient who appears to understand and agrees. Chief Complaint: lung surgery HPI: We have been asked to see this 63 y.o. female for postoperative pain management s/p L thoracotomy and LLLobectomy for NSCLS 09/20/24 Reviewed chest xr 09/22/24 MIKE, no pages. On arrival, pt sitting in bedside chair. Eating cheerios and apple juice, constipated. Asks for senna. Ordered. Chest pain at chest tube site is controlled with [place] per her request. Does not like IV pain meds and the mood changes they cause. Also had a headache from them. Denies f/c, cp, sob, n/v/d Pain Location: chest Aggravating Factors: Moving Sedation score: 1: Awake and alert Pain Severity: mild Pain Quality: sharp Duration continuous Alleviating Factors: Rest/Pain medications REVIEW OF SYSTEMS: Pertinent positives as noted in the HPI. All other systems reviewed and negative. PHYSICAL EXAM: Vitals: BP 125/97 Pulse 110 Temp 36.3 C (97.3 F) (Temporal) Resp (!) 26 Wt 88 kg (194 lb 0.1 oz) SpO2 98% BMI 36.66 kg/m BMI Classification: Obese (BMI 30.0-39.9) General appearance: No apparent distress, appears stated age and cooperative. HEENT: Normal cephalic, atraumatic without obvious deformity. Pupils equal, round, and reactive to light. Extra ocular muscles intact. Conjunctivae/corneas clear. Neck: No jugular venous distention. Trachea midline. Cardiovascular: Peripheral pulses 2+ and equal in all extremities Respiratory: Unlabored respiratory effort. 2L NC O2 Musculoskeletal: No clubbing, cyanosis or edema bilaterally. Full ROM of all extremities. Skin: Skin color, texture, turgor normal. Surgical incision c/d/I , CT in tact with mod output Neurologic: Neurovascularly intact without any focal sensory/motor deficits. Cranial nerves: II-XII intact, grossly non-focal. Psychiatric: Alert and orientedx3, thought content appropriate, normal insight ? Labs: Lab Results Component Value Date WBC 15.4 (H) 09/22/2024 HGB 13.4 09/22/2024 HCT 42.8 09/22/2024 MCV 92.8 09/22/2024 PLT 304 09/22/2024 Lab Results Component Value Date NA 135 (L) 09/22/2024 K 4.7 09/22/2024 CL 99 09/22/2024 CO2 24 09/22/2024 BUN 20 09/22/2024 CREATININE 0.75 09/22/2024 GLUCOSE 121 (H) 09/22/2024 CALCIUM 9.2 09/22/2024 PAGING: The Acute Pain Service providers are available exclusively via [employer]. APS does not utilize pagers. Nutrition rescreen completed. Chart reviewed. Patient to be monitored and followed by the diet prosthetics lab technician. Department of General Surgery Daily Progress Note SUBJECTIVE: NAEON. Pain well controlled this morning. OOB to chair. Ambulated. CT 440cc output SS no air leak OBJECTIVE: VITALS: BP 123/91 Pulse 112 Temp 36.3 C (97.3 F) (Temporal) Resp 21 Wt 88 kg (194 lb 0.1 oz) SpO2 95% BMI 36.66 kg/m INTAKE/OUTPUT: @IODETAILS@ I/O last 3 completed shifts: In: 805.2 (9.2 mL/kg) [P.O.:500; I.V.:305.2 (3.5 mL/kg)] Out: 1220 (13.9 mL/kg) [Urine:550 (0.2 mL/kg/hr); Chest Tube:670] Weight: 88 kg I/O this shift: In: 250 [P.O.:250] Out: 0 PHYSICAL EXAM: Gen: NAD, alert, pain well controlled Heart: RRR, well perfused Lungs: symmetric chest rise, normal work of breathing. CT in place x 2 440 ss output, no air leak with cough, on water seal Abd: soft, non tender, non distended. Non rigid. Ext: no c/c/e no gross deformities Skin: warm, well perfused, <2 cm cap refill, no obvious rashes, cellulitis or gross discoloration LABS CBC: Recent Labs 09/20/24 1850 09/21/24 0450 09/22/24 0510 WBC 17.3* 18.6* 15.4* HGB 13.7 12.8 13.4 HCT 43.4 38.9 42.8 PLT 309 284 304 BMP: Recent Labs 09/20/24 1850 09/21/24 0450 09/22/24 0510 NA 137 133* 135* K 3.9 4.5 4.7 CL 103 101 99 CO2 21* 21* 24 BUN 14 17 20 CREATININE 0.89 0.77 0.75 GLUCOSE 189* 159* 121* Hepatic: No results for input(s): "AST", "ALT", "BILITOT", "ALKPHOS" in the last 72 hours. No lab exists for component: "ALB" Current Inpatient Medications Scheduled Meds:Scheduled Meds[1] Continuous Infusions:Continuous Meds[2] PRN Meds:PRN Meds[3] ASSESSMENT AND PLAN: 63 y.o. female POD 2 s/p L thoracotomy and LLLobectomy for NSCLS -Diet as khoa, SLIV -Home meds -CT to water seal -Daily cxr -Lovenox ppx Staff: Will discuss with Dr. Ana Pacheco MD PGY5, General Surgery Pager #[phone] [1] cetirizine, 10 mg, Oral, Daily DULoxetine, 60 mg, Oral, Nightly enoxaparin, 40 mg, SubCUTAneous, q24h mupirocin, 1 Application, Nasal, BID polyethylene glycol (PEG) 3350, 17 g, Oral, Daily senna-docusate sodium, 1 tablet, Oral, BID sodium chloride 0.9%, 5-40 mL, IntraVENous, 2 times per day [2] [3] PRN medications: calcium carbonate, diphenhydrAMINE, HYDROcodone - acetaminophen OR HYDROcodone - acetaminophen, HYDROmorphone OR HYDROmorphone, labetalol, naloxone, ondansetron ODT OR ondansetron, sodium chloride, sodium chloride 0.9% Cosigned by Lee Ann Perez MD at 09/25/2024 9:50 AM EDT Department of General Surgery Daily Progress Note SUBJECTIVE: NAEON. Pain well controlled this morning. OOB to chair. Ambulated. CT SS low output no air leak. CXR stable OBJECTIVE: VITALS: BP 129/92 Pulse 111 Temp 36.9 C (98.5 F) (Oral) Resp 21 Wt 88.2 kg (194 lb 7.1 oz) SpO2 95% BMI 36.74 kg/m INTAKE/OUTPUT: @IODETAILS@ I/O last 3 completed shifts: In: 1454.5 (16.5 mL/kg) [I.V.:1200.5 (13.6 mL/kg); IV Piggyback:254] Out: 910 (10.3 mL/kg) [Urine:550 (0.2 mL/kg/hr); Blood:50; Chest Tube:310] Weight: 88.2 kg I/O this shift: In: 462.9 [P.O.:250; I.V.:212.9] Out: 50 [Chest Tube:50] PHYSICAL EXAM: Gen: NAD, alert, pain well controlled Heart: RRR, well perfused Lungs: symmetric chest rise, normal work of breathing. CT in place x2 310 ss output, no air leak with cough, placed to water seal on rounds Abd: soft, non tender, non distended. Non rigid. Ext: no c/c/e no gross deformities Skin: warm, well perfused, <2 cm cap refill, no obvious rashes, cellulitis or gross discoloration LABS CBC: Recent Labs 09/20/24 1018 09/20/24 1850 09/21/24 0450 WBC -- 17.3* 18.6* HGB 14.2 13.7 12.8 HCT 43.7 43.4 38.9 PLT -- 309 284 BMP: Recent Labs 09/20/24 1850 09/21/24 0450 NA 137 133* K 3.9 4.5 CL 103 101 CO2 21* 21* BUN 14 17 CREATININE 0.89 0.77 GLUCOSE 189* 159* Hepatic: No results for input(s): "AST", "ALT", "BILITOT", "ALKPHOS" in the last 72 hours. No lab exists for component: "ALB" Current Inpatient Medications Scheduled Meds:Scheduled Meds[1] Continuous Infusions:Continuous Meds[2] PRN Meds:PRN Meds[3] ASSESSMENT AND PLAN: 63 y.o. female POD 1 s/p L thoracotomy and LLLobectomy for NSCLS -Diet as khoa, SLIV - DC art line and farley -Home meds -CT to water seal this am -Daily cxr -Lovenox ppx Staff: Will discuss with Dr. Ana Pacheco MD PGY5, General Surgery Pager #[phone] [1] acetaminophen, 650 mg, Oral, q6h cetirizine, 10 mg, Oral, Daily DULoxetine, 60 mg, Oral, Nightly enoxaparin, 40 mg, SubCUTAneous, q24h mupirocin, 1 Application, Nasal, BID polyethylene glycol (PEG) 3350, 17 g, Oral, Daily sodium chloride 0.9%, 5-40 mL, IntraVENous, 2 times per day [2] HYDROmorphone, [3] PRN medications: HYDROmorphone, labetalol, naloxone (Narcan) 0.4 mg in sodium chloride (PF) 0.9 % 10 mL injection, ondansetron ODT OR ondansetron, sodium chloride, sodium chloride 0.9% Cosigned by Lee Ann Perez MD at 09/25/2024 9:49 AM EDT Images from the original note were not included. PHYSICAL THERAPY [facility] Initial Evaluation Name/MRN: Fozia Breen ([id number]) Evaluation Date: 09/21/2024 Date of : 1960 Admission Date: 09/20/2024 9:54 AM Age: 63 y.o. Room/Bed: T1-123/T1-123 A Discharge Recommendation: Home with assist PRN Equipment Needed: No (has walker, transport chair, shower chair, BSC) Assessment IMPRESSION: Patient is a 63 yo admitted due to lung nodule s/p thoracoscopy with wedge resection of left upper lobe and lobectomy on 09/20/24. Patient is limited by L rib pain and impaired standing balance. Patient required CGA for sit <> stand transfers. Patient ambulated 110 feet using Nezzie with CGA. Patient will benefit from acute PT services to improve endurance and independence with mobility. Anticipate home with assist PRN. Admitting Diagnosis: lung nodule s/p thoracoscopy with wedge resection of left upper lobe and lobectomy on 09/20/24 Prognosis: excellent Performance Deficits /Impairments: Increased Pain, Decreased Functional Mobility, Decreased ADL status, Decreased Strength, Decreased Endurance, Decreased Balance, and Decreased High Level IADLs Decision Making: Medium Complexity Subjective RN cleared patient for PT eval. Patient up in recliner, requesting to use bathroom, pleasant and agreeable to therapy, very motivated. Pain: 0-10 pain scale: 7/10 Location: L ribs Past Medical History: Medical History[1] Past Surgical History: Surgical History[2] Admission Diagnosis: Patient Active Problem List Diagnosis Date Noted Lung nodule 09/20/2024 Medical Precautions: No active isolations Proper PPE donned/doffed in accordance with facility standards. Fall Risk: Domingo Fall Risk Score: 45 (High Risk) Precautions/Restrictions: Lines/Drains/Airways: tele, continuous pulse ox, chest tubes x2 Family/Caregiver Present: none Overall Cognitive Status: WNL Overall Orientation Status: Oriented x4 Social/Functional History Patient admitted from home. Lives With: mother Type of Home: duplex home Home Layout: Single Level Home Home Access: Stairs to Enter with Rails (# of stairs: 1) Bathroom Shower/Tub: Tub/Shower Combo, Shower Chair with Back, and Grab Bars Toilet: Home Equipment: front wheeled walker, bedside commode, shower seat, and transport wheelchair Homemaking Responsibilities: Independent Receives Help From: None Active Assisted Living Associate: Yes Prior Level of Function Prior Level of ADL Function: Independent Prior Level of Mobility: Independent; Device: None Prior Level of Transfers: Independent Objective Transfers/Mobility Sit to stand: Contact Guard Stand to sit: Contact Guard From recliner and toilet with UE support, cues for hand placement Device(s) used: Nezzie Ambulation Assistive device(s) used: Nezzie Assist level: Contact Guard Distance (ft): 15, 110 Quality of gait: No LOB, slow kirsten, dyspnea noted Balance During Session: Posture: good Standing - Static: at Nezzie, SBA Standing - Dynamic: stood to wash hands at sink with SBA, no LOB Knee ROM Right Left AROM PROM AROM PROM Knee Flexion WFL WFL WFL WFL Knee Extension WFL WFL WFL WFL Ankle ROM Right Left AROM PROM AROM PROM Ankle Dorsiflexion (DF) WFL WFL WFL WFL Ankle Plantarflexion (PF) WFL WFL WFL WFL Outcome Measures AM-PAC How much HELP from another person do you currently need Turning from your back to your side while in a flat bed without using bedrails?: A Little Moving from lying on your back to sitting on the side of a flat bed without using bedrails?: A Little Moving to and from a bed to a chair (including a wheelchair)?: A Little Standing up from a chair using your arms (wheelchair or bedside chair)?: A Little Walking in a hospital room?: A Little Stair climbing assessed?: No AM-PAC Inpatient Mobility Raw Score (No Stairs) : 15 JH-HLM JH-HLM Score: Walked 25 ft or more (i.e. walked outside of room) Plan Pt would benefit from skilled acute PT services to address Strengthening, Gait Training, Balance Training, Self-Care/ADL Training, Functional Mobility Training, Endurance Training, Safety Education and Training, Pain Management, Stair Training, and Neuromuscular Re-Education Training. Frequency: 5x/week for 4 weeks Barriers: Pain, Impaired balance, Lower extremity weakness, Limited safety awareness, and Decreased endurance Safety/Education Safety Safety Devices in place: All fall risk precautions in place, call light within reach, left in chair, nurse notified, and no alarms engaged upon entry Restraints: No Education Education Given To: patient Education Provided: PT Role, PT Goals, Plan of Care, and Discharge Recommendations Education Method: Verbal Barriers to Learning: None Education Outcome: Verbalized Understanding Goals Patient Stated Goal: To go home this weekend Encounter Problems Encounter Problems (Active) Cardiac Patient will be independent with P&C exercises. Start: 09/21/24 Expected End: 10/19/24 Patient will be independent with managing secretions and home walking program. Start: 09/21/24 Expected End: 10/19/24 Mobility Patient will ambulate 350 feet with modified independence and least restrictive device in order to improve safety and independence with mobility. Start: 09/21/24 Expected End: 10/19/24 Patient will ascend and descend 1 stairs with one railing and modified independence in order to safely negotiate home. Start: 09/21/24 Expected End: 10/19/24 Pain - Adult Transfers Patient will perform bed mobility with modified independence in order to improve independence and prepare for out of bed mobility. Start: 09/21/24 Expected End: 10/19/24 Patient will complete functional transfer with least restrictive device with modified independence in order to prepare for ambulation. Start: 09/21/24 Expected End: 10/19/24 Therapy Time Individual Co-Treatment Co-Evaluation Time In 904 Time Out 0920 Minutes 15 Cydney Billings PT Patient's Physical Therapy Plan of Care supervision is transferred to a [facility] Physical Therapist. Goals and/or treatment plan was established in collaboration with patient/family/other representatives. [1] Past Medical History: Diagnosis Date Allergies Anemia with Arthritis Carpal tunnel syndrome, right Chronic kidney disease COPD (chronic obstructive pulmonary disease) (HCC) Disease of thyroid gland Pulmonary nodule [2] Past Surgical History: Procedure Laterality Date CARPAL TUNNEL RELEASE Right COLONOSCOPY DILATION AND CURETTAGE OF UTERUS EXPLORATORY LAPAROTOMY HYSTERECTOMY 1995 [place] REMV LUNG, WEDGE RESECTION AND ANATOMIC LUNG RESECTION (HISTORICAL) Left 09/20/2024 documented in this encounter [facility] 09-25-2024 Hospital Discharg e instructions Moises Pacheco MD - 09/25/2024 7:48 AM EDT Images from the original note were not included. Discharge Instructions Call your surgeon in 1 to 2 days to schedule a follow-up appointment in 1-2 weeks. OK to shower. OK for activity as tolerated. No lifting over 10 pounds. Wound Care: keep wound clean and dry, reinforce dressing PRN and ice to area for comfort. If you have steri-strips, you may remove them 5 days after your surgery. If your steri-strips fall off sooner, you may leave them off. If you have elina, they can be removed in 14 days after your surgery by your surgeon or PCP. If you have a drain, please record daily output amounts and bring the recordings with you to your office follow up. No driving while taking narcotic/sedating medications. You may take an over the counter stool softener while on narcotics for constipation as needed (colace, miralax, etc). Continue your diet as currently ordered. Call your Physician or return to the Emergency Room if you experience: -New or increased pain. -New or increased bleeding. -Nausea & vomitting. -Fever & chills. -Shortness of breath. -Chest pain. -Abdominal distention. documented in this encounter [facility] 09-25-2024 Note Department of Genera l Surgery Daily Progress Note SUBJECTIVE: NAEON. Pain well controlled this morning. OOB to chair. CT out last night after clamp trial. AM CXR pending OBJECTIVE: VITALS: BP 142/90 Pulse 94 Temp 36.2 ?C (97.1 ?F) (Temporal) Resp 16 Wt 82.9 kg (182 lb 12.8 oz) SpO2 96% BMI 34.54 kg/m? INTAKE/OUTPUT: @IODETAILS@ I/O last 3 completed shifts: In: 1870 (22.6 mL/kg) [P.O.:1870] Out: 105 (1.3 mL/kg) [Chest Tube:105] Weight: 82.9 kg No intake/output data recorded. PHYSICAL EXAM: Gen: NAD, alert, pain well controlled Heart: RRR, well perfused Lungs: symmetric chest rise, normal work of breathing. CT out, site dry, bandaid replaced Abd: soft, non tender, non distended. Non rigid. Ext: no c/c/e no gross deformities Skin: warm, well perfused, <2 cm cap refill, no obvious rashes, cellulitis or gross discoloration LABS CBC: Recent Labs 09/23/24 0503 09/24/24 0114 WBC 11.7* 8.0 HGB 12.6 12.2 HCT 39.4 37.5 PLT 259 277 BMP: Recent Labs 09/23/24 0503 09/24/24 0114 NA 136 136 K 4.5 4.1 CL 99 99 CO2 27 28 BUN 15 13 CREATININE 0.67 0.68 GLUCOSE 107 121* Hepatic: No results for input(s): "AST", "ALT", "BILITOT", "ALKPHOS" in the last 72 hours. No lab exists for component: "ALB" Current Inpatient Medications Scheduled Meds:Scheduled Meds[1] Continuous Infusions:Continuous Meds[2] PRN Meds:PRN Meds[3] ASSESSMENT AND PLAN: 63 y.o. female s/p L thoracotomy and LLLobectomy for NSCLS -Diet as khoa, SLIV -Home meds -CT removed 09/24 -Lovenox ppx -DC labs -Wean o2 - goal >88% with smoking hx -Going home with home O2 -Await am CXR (post CT pull CXR0 then DC home this am with family Response to CDI Query: PT has no lab findings of CKD this admission with normal CR and CR clearance Staff: Will discuss with Dr. Ana Pacheco MD PGY5, General Surgery Pager #[phone] [1] cetirizine, 10 mg, Oral, Daily DULoxetine, 60 mg, Oral, Nightly enoxaparin, 40 mg, SubCUTAneous, q24h mupirocin, 1 Application, Nasal, BID senna-docusate sodium, 2 tablet, Oral, Daily sodium chloride 0.9%, 5-40 mL, IntraVENous, 2 times per day [2] [3] PRN medications: calcium carbonate, diphenhydrAMINE, HYDROcodone - acetaminophen OR HYDROcodone - acetaminophen, HYDROmorphone OR HYDROmorphone, labetalol, magnesium hydroxide, methocarbamol, naloxone, ondansetron ODT OR ondansetron, polyethylene glycol (PEG) 3350, sodium chloride, sodium chloride 0.9% [facility] 09-24-2024 Plan of care note Problem: Pain - Adult Goal: Verbalizes/displays adequate comfort level or baseline comfort level Outcome: Progressing Problem: Safety - Adult Goal: Free from fall injury Outcome: Progressing Problem: Discharge Planning Goal: Discharge to home or other facility with appropriate resources Outcome: Progressing Problem: Chronic Conditions and Co-morbidities Goal: Patient's chronic conditions and co-morbidity symptoms are monitored and maintained or improved Outcome: Progressing Problem: Pain Goal: My pain/discomfort is manageable Outcome: Progressing Problem: Safety Goal: Patient will be injury free during hospitalization Outcome: Progressing Problem: Daily Care Goal: Daily care needs are met Outcome: Progressing Problem: Psychosocial Needs Goal: Demonstrates ability to cope with hospitalization/illness Outcome: Progressing Goal: Collaborate with me, my family, and caregiver to identify my specific goals Outcome: Progressing Problem: Discharge Barriers Goal: My discharge needs are met Outcome: Progressing [facility] 09-24-2024 Plan of care note Chest tubes removed per Dr. Aparicio. Tolerated well. [facility] 09-24-2024 Note Formatting of this n ote might be different from the original. Case Management Progress Note: Patient transferred to s/p L thoracotomy and LLLobectomy for NSCLS Discharge Plan: Home. Per chart review. Patient noted with 2 CT[address]. Plan a clamp trial this afternoon. ? O2 need at discharge, currently 2L. T [facility] 09-24-2024 Note Formatting of this n ote might be different from the original. Case Management Progress Note: Patient transferred to s/p L thoracotomy and LLLobectomy for NSCLS Discharge Plan: Home. Per chart review. Patient noted with 2 CT's. Plan a clamp trial this afternoon. ? O2 need at discharge, currently 2L. T [facility] 09-24-2024 Note Case Management Prog ress Note: Patient transferred to s/p L thoracotomy and LLLobectomy for NSCLS Discharge Plan: Home. Per chart review. Patient noted with 2 CT's. Plan a clamp trial this afternoon. ? O2 need at discharge, currently 2L. [facility] 09-24-2024 Note Department of Genera l Surgery Daily Progress Note SUBJECTIVE: NAEON. Pain well controlled this morning. OOB to chair. Ambulated. CT 170serous output, no AL in CT this am, CXR stable OBJECTIVE: VITALS: BP 138/91 (BP Location: Right arm, Patient Position: Sitting) Pulse 117 Temp (!) 35.7 ?C (96.2 ?F) (Temporal) Resp 18 Wt 85 kg (187 lb 4.8 oz) SpO2 94% BMI 35.39 kg/m? INTAKE/OUTPUT: @IODETAILS@ I/O last 3 completed shifts: In: 1100 (12.5 mL/kg) [P.O.:1100] Out: 284 (3.2 mL/kg) [Chest Tube:284] Weight: 88.2 kg No intake/output data recorded. PHYSICAL EXAM: Gen: NAD, alert, pain well controlled Heart: RRR, well perfused Lungs: symmetric chest rise, normal work of breathing. CT in place x 2 170 ss output, no air leak with cough, on water seal Abd: soft, non tender, non distended. Non rigid. Ext: no c/c/e no gross deformities Skin: warm, well perfused, <2 cm cap refill, no obvious rashes, cellulitis or gross discoloration LABS CBC: Recent Labs 09/22/24 0510 09/23/24 0503 09/24/24 0114 WBC 15.4* 11.7* 8.0 HGB 13.4 12.6 12.2 HCT 42.8 39.4 37.5 PLT 304 259 277 BMP: Recent Labs 09/22/24 0510 09/23/24 0503 09/24/24 0114 NA 135* 136 136 K 4.7 4.5 4.1 CL 99 99 99 CO2 24 27 28 BUN 20 15 13 CREATININE 0.75 0.67 0.68 GLUCOSE 121* 107 121* Hepatic: No results for input(s): "AST", "ALT", "BILITOT", "ALKPHOS" in the last 72 hours. No lab exists for component: "ALB" Current Inpatient Medications Scheduled Meds:Scheduled Meds[1] Continuous Infusions:Continuous Meds[2] PRN Meds:PRN Meds[3] ASSESSMENT AND PLAN: 63 y.o. female s/p L thoracotomy and LLLobectomy for NSCLS -Diet as khoa, SLIV -Home meds -Increase bowel reg = + BM 09/23 -CT to water seal - air leak gone this am, will remove CT -AM CXR tomorrow -Lovenox ppx -DC labs -Wean o2 - goal >88% with smoking hx -Goal DC Home tues am Response to CDI Query: PT has no lab findings of CKD this admission with normal CR and CR clearance Staff: Will discuss with Dr. Ana Pacheco MD PGY5, General Surgery Pager #[phone] [1] cetirizine, 10 mg, Oral, Daily DULoxetine, 60 mg, Oral, Nightly enoxaparin, 40 mg, SubCUTAneous, q24h magnesium hydroxide, 30 mL, Oral, Daily mupirocin, 1 Application, Nasal, BID polyethylene glycol (PEG) 3350, 17 g, Oral, BID senna-docusate sodium, 2 tablet, Oral, Daily sodium chloride 0.9%, 5-40 mL, IntraVENous, 2 times per day [2] [3] PRN medications: calcium carbonate, diphenhydrAMINE, HYDROcodone - acetaminophen OR HYDROcodone - acetaminophen, HYDROmorphone OR HYDROmorphone, labetalol, methocarbamol, naloxone, ondansetron ODT OR ondansetron, sodium chloride, sodium chloride 0.9% [facility] 09-23-2024 Note OCCUPATIONAL THERAPY [facility] Initial Evaluation Name/MRN: Fozia Breen ([id number]) Evaluation Date: 09/23/2024 Date of : 1960 Admission Date: 09/20/2024 9:54 AM Age: 63 y.o. [facility] Discharge Recommendation: Home with assist PRN, Home independently Equipment Needed: No Assessment IMPRESSION: Patient admit due to lung nodule s/p thoracoscopy with wedge resection of left upper lobe and lobectomy on 09/20/24. 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 Patient presents this session near baseline with fatigue and pain limitations only. Patient completed ADL, transfers, mobility with mod I for increased time. IP OT services are not warranted at this time. OT recommends patient DC to home with assist as needed from family for higher level/ heavy lifting IADLs. Admitting Diagnosis: lung nodule s/p thoracoscopy with wedge resection of left upper lobe and lobectomy on 09/20/24. Performance Deficits /Impairments: Increased Pain and Decreased Endurance Prognosis: Good Decision Making: Low Complexity Subjective Patient agreeable to OT session, RN cleared patient for therapy . Pain: 0-10 pain scale: 2/10 Location: back Past Medical History: Medical History[1] Past Surgical History: Surgical History[2] Admission Diagnosis: Patient Active Problem List Diagnosis Date Noted Lung nodule 09/20/2024 Medical Precautions: No active isolations Proper PPE donned/doffed in accordance with facility standards. Fall Risk: Domingo Fall Risk Score: 35 (Medium Risk) Precautions/Restrictions: Lines/Drains/Airways: tele, continuous pulse ox, chest tubes x2 Family/Caregiver Present: none Overall Cognitive Status: WNL Overall Orientation Status: Oriented x4 Social/Functional History Patient admitted from home. Lives With: mother Type of Home: duplex home Home Layout: Single Level Home Home Access: Stairs to Enter with Rails (# of stairs: 1) Bathroom Shower/Tub: Tub/Shower Combo, Shower Chair with Back, and Grab Bars Toilet: Home Equipment: front wheeled walker, bedside commode, shower seat, and transport wheelchair Homemaking Responsibilities: Independent Receives Help From: None Active Assisted Living Associate: Yes Prior Level of Function Prior Level of ADL Function: Independent Prior Level of Mobility: Independent; Device: None Prior Level of Transfers: Independent Objective ADLs LE Dressing: Modified Independent UE Dressing: Modified Independent Upper Extremity Assessment AROM: WFL PROM: Not assessed this session Strength: WFL Transfers/Mobility Sit to stand: Modified Independent Stand to sit: Modified Independent Sitting balance: Modified Independent Standing balance: Modified Independent Functional mobility: Modified Independent Patient used FWW for support, edu provided on benefits of using FWW for stability and to conserve energy during functional activities. Device(s) used: Front wheeled walker AM-PAC AM-PAC Inpatient Daily Activity Raw Score: 24 ADL Inpatient CMS G-Code Modifier: CH Plan No skilled acute OT indicated at this time. Please reconsult should changes occur. Safety/Education Safety Safety Devices in place: All fall risk precautions in place, call light within reach, and left in chair Restraints: No Education Education Given To: patient Education Provided: OT Role, Precautions, ADL Adaptive Strategies, Transfer Training, Energy Conservation, IADL Safety, Equipment, Fall Prevention Education, Discharge Recommendations, and Benefits of Increasing Activity Education Method: Verbal and Demonstration Barriers to Learning: None Education Outcome: Verbalized Understanding Goals Patient Stated Goal: go home, no pain Therapy Time Individual Co-Treatment Co-Evaluation Time In 0309 Time Out 0320 Minutes 11 Cary Mclean OT Patient's Occupational Therapy Plan of Care supervision is transferred to a [facility] Occupational Therapist. Goals and/or treatment plan was established in collaboration with patient/family/other representatives. [1] Past Medical History: Diagnosis Date Allergies Anemia with Arthritis Carpal tunnel syndrome, right Chronic kidney disease COPD (chronic obstructive pulmonary disease) (HCC) Disease of thyroid gland Pulmonary nodule [2] Past Surgical History: Procedure Laterality Date CARPAL TUNNEL RELEASE Right COLONOSCOPY DILATION AND CURETTAGE OF UTERUS EXPLORATORY LAPAROTOMY HYSTERECTOMY 1995 [place] REMV LUNG, WEDGE RESECTION AND ANATOMIC LUNG RESECTION (HISTORICAL) Left 09/20/2024 [facility] 09-23-2024 Plan of care note Problem: Pain - Adult Goal: Verbalizes/displays adequate comfort level or baseline comfort level Outcome: Progressing Problem: Safety - Adult Goal: Free from fall injury Outcome: Progressing Problem: Discharge Planning Goal: Discharge to home or other facility with appropriate resources Outcome: Progressing Problem: Chronic Conditions and Co-morbidities Goal: Patient's chronic conditions and co-morbidity symptoms are monitored and maintained or improved Outcome: Progressing Problem: Pain Goal: My pain/discomfort is manageable Outcome: Progressing Problem: Safety Goal: Patient will be injury free during hospitalization Outcome: Progressing Goal: I will remain free of falls Outcome: Progressing Problem: Daily Care Goal: Daily care needs are met Outcome: Progressing Problem: Psychosocial Needs Goal: Demonstrates ability to cope with hospitalization/illness Outcome: Progressing Goal: Collaborate with me, my family, and caregiver to identify my specific goals Outcome: Progressing Problem: Discharge Barriers Goal: My discharge needs are met Outcome: Progressing [facility] 09-23-2024 Note Department of [facility] Surgery Daily Progress Note SUBJECTIVE: NAEON. Pain well controlled this morning. OOB to chair. Ambulated. [id number] SS output, slight AL in rigid CT OBJECTIVE: VITALS: BP 133/82 (BP Location: Right arm, Patient Position: Sitting) Pulse 120 Temp 36.2 ?C (97.2 ?F) (Temporal) Resp 24 Wt 88.2 kg (194 lb 7.1 oz) SpO2 95% BMI 36.74 kg/m? INTAKE/OUTPUT: @IODETAILS@ I/O last 3 completed shifts: In: 500 (5.7 mL/kg) [P.O.:500] Out: 400 (4.5 mL/kg) [Chest Tube:400] Weight: 88.2 kg I/O this shift: In: - Out: 29 [Chest Tube:29] PHYSICAL EXAM: Gen: NAD, alert, pain well controlled Heart: RRR, well perfused Lungs: symmetric chest rise, normal work of breathing. CT in place x 2 150 ss output, no air leak with cough, on water seal Abd: soft, non tender, non distended. Non rigid. Ext: no c/c/e no gross deformities Skin: warm, well perfused, <2 cm cap refill, no obvious rashes, cellulitis or gross discoloration LABS CBC: Recent Labs 09/21/24 0450 09/22/24 0510 09/23/24 0503 WBC 18.6* 15.4* 11.7* HGB 12.8 13.4 12.6 HCT 38.9 42.8 39.4 PLT 284 304 259 BMP: Recent Labs 09/21/24 0450 09/22/24 0510 09/23/24 0503 NA 133* 135* 136 K 4.5 4.7 4.5 CL 101 99 99 CO2 21* 24 27 BUN 17 20 15 CREATININE 0.77 0.75 0.67 GLUCOSE 159* 121* 107 Hepatic: No results for input(s): "AST", "ALT", "BILITOT", "ALKPHOS" in the last 72 hours. No lab exists for component: "ALB" Current Inpatient Medications Scheduled Meds:Scheduled Meds[1] Continuous Infusions:Continuous Meds[2] PRN Meds:PRN Meds[3] ASSESSMENT AND PLAN: 63 y.o. female POD 4 s/p L thoracotomy and LLLobectomy for NSCLS -Diet as khoa, SLIV -Home meds -Increase bowel reg -CT to water seal - monitor air leak for now -Daily CXR -Lovenox ppx -Txf to floor Staff: Will discuss with Dr. Ana Pacheco MD PGY5, General Surgery Pager #[phone] [1] cetirizine, 10 mg, Oral, Daily DULoxetine, 60 mg, Oral, Nightly enoxaparin, 40 mg, SubCUTAneous, q24h magnesium hydroxide, 30 mL, Oral, Daily mupirocin, 1 Application, Nasal, BID [START ON 09/24/2024] polyethylene glycol (PEG) 3350, 17 g, Oral, BID senna-docusate sodium, 2 tablet, Oral, Daily sodium chloride 0.9%, 5-40 mL, IntraVENous, 2 times per day [2] [3] PRN medications: calcium carbonate, diphenhydrAMINE, HYDROcodone - acetaminophen OR HYDROcodone - acetaminophen, HYDROmorphone OR HYDROmorphone, labetalol, methocarbamol, naloxone, ondansetron ODT OR ondansetron, sodium chloride, sodium chloride 0.9% [facility] 09-22-2024 Note [facility] Surgery Daily Progress Note SUBJECTIVE: NAEON. Pain well controlled this morning. OOB to chair. Ambulated. CT 440cc output SS no air leak OBJECTIVE: VITALS: BP 123/91 Pulse 112 Temp 36.3 ?C (97.3 ?F) (Temporal) Resp 21 Wt 88 kg (194 lb 0.1 oz) SpO2 95% BMI 36.66 kg/m? INTAKE/OUTPUT: @IODETAILS@ I/O last 3 completed shifts: In: 805.2 (9.2 mL/kg) [P.O.:500; I.V.:305.2 (3.5 mL/kg)] Out: 1220 (13.9 mL/kg) [Urine:550 (0.2 mL/kg/hr); Chest Tube:670] Weight: 88 kg I/O this shift: In: 250 [P.O.:250] Out: 0 PHYSICAL EXAM: Gen: NAD, alert, pain well controlled Heart: RRR, well perfused Lungs: symmetric chest rise, normal work of breathing. CT in place x 2 440 ss output, no air leak with cough, on water seal Abd: soft, non tender, non distended. Non rigid. Ext: no c/c/e no gross deformities Skin: warm, well perfused, <2 cm cap refill, no obvious rashes, cellulitis or gross discoloration LABS CBC: Recent Labs 09/20/24 1850 09/21/24 0450 09/22/24 0510 WBC 17.3* 18.6* 15.4* HGB 13.7 12.8 13.4 HCT 43.4 38.9 42.8 PLT 309 284 304 BMP: Recent Labs 09/20/24 1850 09/21/24 0450 09/22/24 0510 NA 137 133* 135* K 3.9 4.5 4.7 CL 103 101 99 CO2 21* 21* 24 BUN 14 17 20 CREATININE 0.89 0.77 0.75 GLUCOSE 189* 159* 121* Hepatic: No results for input(s): "AST", "ALT", "BILITOT", "ALKPHOS" in the last 72 hours. No lab exists for component: "ALB" Current Inpatient Medications Scheduled Meds:Scheduled Meds[1] Continuous Infusions:Continuous Meds[2] PRN Meds:PRN Meds[3] ASSESSMENT AND PLAN: 63 y.o. female POD 2 s/p L thoracotomy and LLLobectomy for NSCLS -Diet as khoa, SLIV -Home meds -CT to water seal -Daily cxr -Lovenox ppx Staff: Will discuss with Dr. Ana Pacheco MD PGY5, General Surgery Pager #[phone] [1] cetirizine, 10 mg, Oral, Daily DULoxetine, 60 mg, Oral, Nightly enoxaparin, 40 mg, SubCUTAneous, q24h mupirocin, 1 Application, Nasal, BID polyethylene glycol (PEG) 3350, 17 g, Oral, Daily senna-docusate sodium, 1 tablet, Oral, BID sodium chloride 0.9%, 5-40 mL, IntraVENous, 2 times per day [2] [3] PRN medications: calcium carbonate, diphenhydrAMINE, HYDROcodone - acetaminophen OR HYDROcodone - acetaminophen, HYDROmorphone OR HYDROmorphone, labetalol, naloxone, ondansetron ODT OR ondansetron, sodium chloride, sodium chloride 0.9% [facility] 09-21-2024 Note Department of Genera l Surgery Daily Progress Note SUBJECTIVE: NAEON. Pain well controlled this morning. OOB to chair. Ambulated. CT SS low output no air leak. CXR stable OBJECTIVE: VITALS: BP 129/92 Pulse 111 Temp 36.9 ?C (98.5 ?F) (Oral) Resp 21 Wt 88.2 kg (194 lb 7.1 oz) SpO2 95% BMI 36.74 kg/m? INTAKE/OUTPUT: @IODETAILS@ I/O last 3 completed shifts: In: 1454.5 (16.5 mL/kg) [I.V.:1200.5 (13.6 mL/kg); IV Piggyback:254] Out: 910 (10.3 mL/kg) [Urine:550 (0.2 mL/kg/hr); Blood:50; Chest Tube:310] Weight: 88.2 kg I/O this shift: In: 462.9 [P.O.:250; I.V.:212.9] Out: 50 [Chest Tube:50] PHYSICAL EXAM: Gen: NAD, alert, pain well controlled Heart: RRR, well perfused Lungs: symmetric chest rise, normal work of breathing. CT in place x2 310 ss output, no air leak with cough, placed to water seal on rounds Abd: soft, non tender, non distended. Non rigid. Ext: no c/c/e no gross deformities Skin: warm, well perfused, <2 cm cap refill, no obvious rashes, cellulitis or gross discoloration LABS CBC: Recent Labs 09/20/24 1018 09/20/24 1850 09/21/24 0450 WBC -- 17.3* 18.6* HGB 14.2 13.7 12.8 HCT 43.7 43.4 38.9 PLT -- 309 284 BMP: Recent Labs 09/20/24 1850 09/21/24 0450 NA 137 133* K 3.9 4.5 CL 103 101 CO2 21* 21* BUN 14 17 CREATININE 0.89 0.77 GLUCOSE 189* 159* Hepatic: No results for input(s): "AST", "ALT", "BILITOT", "ALKPHOS" in the last 72 hours. No lab exists for component: "ALB" Current Inpatient Medications Scheduled Meds:Scheduled Meds[1] Continuous Infusions:Continuous Meds[2] PRN Meds:PRN Meds[3] ASSESSMENT AND PLAN: 63 y.o. female POD 1 s/p L thoracotomy and LLLobectomy for NSCLS -Diet as khoa, SLIV - DC art line and farley -Home meds -CT to water seal this am -Daily cxr -Lovenox ppx Staff: Will discuss with Dr. Ana Pacheco MD PGY5, General Surgery Pager #[phone] [1] acetaminophen, 650 mg, Oral, q6h cetirizine, 10 mg, Oral, Daily DULoxetine, 60 mg, Oral, Nightly enoxaparin, 40 mg, SubCUTAneous, q24h mupirocin, 1 Application, Nasal, BID polyethylene glycol (PEG) 3350, 17 g, Oral, Daily sodium chloride 0.9%, 5-40 mL, IntraVENous, 2 times per day [2] HYDROmorphone, [3] PRN medications: HYDROmorphone, labetalol, naloxone (Narcan) 0.4 mg in sodium chloride (PF) 0.9 % 10 mL injection, ondansetron ODT OR ondansetron, sodium chloride, sodium chloride 0.9% [facility] 09-21-2024 Note PHYSICAL THERAPY [facility] Initial Evaluation Name/MRN: Fozia Breen ([id number]) Evaluation Date: 09/21/2024 Date of : 1960 Admission Date: 09/20/2024 9:54 AM Age: 63 y.o. Room/Bed: T1-123/T1-123 A Discharge Recommendation: Home with assist PRN Equipment Needed: No (has walker, transport chair, shower chair, BSC) Assessment IMPRESSION: Patient is a 63 yo admitted due to lung nodule s/p thoracoscopy with wedge resection of left upper lobe and lobectomy on 09/20/24. Patient is limited by L rib pain and impaired standing balance. Patient required CGA for sit <> stand transfers. Patient ambulated 110 feet using Nezzie with CGA. Patient will benefit from acute PT services to improve endurance and independence with mobility. Anticipate home with assist PRN. Admitting Diagnosis: lung nodule s/p thoracoscopy with wedge resection of left upper lobe and lobectomy on 09/20/24 Prognosis: excellent Performance Deficits /Impairments: Increased Pain, Decreased Functional Mobility, Decreased ADL status, Decreased Strength, Decreased Endurance, Decreased Balance, and Decreased High Level IADLs Decision Making: Medium Complexity Subjective RN cleared patient for PT eval. Patient up in recliner, requesting to use bathroom, pleasant and agreeable to therapy, very motivated. Pain: 0-10 pain scale: 7/10 Location: L ribs Past Medical History: Medical History[1] Past Surgical History: Surgical History[2] Admission Diagnosis: Patient Active Problem List Diagnosis Date Noted Lung nodule 09/20/2024 Medical Precautions: No active isolations Proper PPE donned/doffed in accordance with facility standards. Fall Risk: Domingo Fall Risk Score: 45 (High Risk) Precautions/Restrictions: Lines/Drains/Airways: tele, continuous pulse ox, chest tubes x2 Family/Caregiver Present: none Overall Cognitive Status: WNL Overall Orientation Status: Oriented x4 Social/Functional History Patient admitted from home. Lives With: mother Type of Home: duplex home Home Layout: Single Level Home Home Access: Stairs to Enter with Rails (# of stairs: 1) Bathroom Shower/Tub: Tub/Shower Combo, Shower Chair with Back, and Grab Bars Toilet: Home Equipment: front wheeled walker, bedside commode, shower seat, and transport wheelchair Homemaking Responsibilities: Independent Receives Help From: None Active Assisted Living Associate: Yes Prior Level of Function Prior Level of ADL Function: Independent Prior Level of Mobility: Independent; Device: None Prior Level of Transfers: Independent Objective Transfers/Mobility Sit to stand: Contact Guard Stand to sit: Contact Guard From recliner and toilet with UE support, cues for hand placement Device(s) used: Rickey Ambulation Assistive device(s) used: Rickey Assist level: Contact Guard Distance (ft): 15, 110 Quality of gait: No LOB, slow kirsten, dyspnea noted Balance During Session: Posture: good Standing - Static: at Nezzie, SBA Standing - Dynamic: stood to wash hands at sink with SBA, no LOB Knee ROM Right Left AROM PROM AROM PROM Knee Flexion WFL WFL WFL WFL Knee Extension WFL WFL WFL WFL Ankle ROM Right Left AROM PROM AROM PROM Ankle Dorsiflexion (DF) WFL WFL WFL WFL Ankle Plantarflexion (PF) WFL WFL WFL WFL Outcome Measures AM-PAC How much HELP from another person do you currently need Turning from your back to your side while in a flat bed without using bedrails?: A Little Moving from lying on your back to sitting on the side of a flat bed without using bedrails?: A Little Moving to and from a bed to a chair (including a wheelchair)?: A Little Standing up from a chair using your arms (wheelchair or bedside chair)?: A Little Walking in a hospital room?: A Little Stair climbing assessed?: No AM-PAC Inpatient Mobility Raw Score (No Stairs) : 15 JH-HLM -HLM Score: Walked 25 ft or more (i.e. walked outside of room) Plan Pt would benefit from skilled acute PT services to address Strengthening, Gait Training, Balance Training, Self-Care/ADL Training, Functional Mobility Training, Endurance Training, Safety Education and Training, Pain Management, Stair Training, and Neuromuscular Re-Education Training. Frequency: 5x/week for 4 weeks Barriers: Pain, Impaired balance, Lower extremity weakness, Limited safety awareness, and Decreased endurance Safety/Education Safety Safety Devices in place: All fall risk precautions in place, call light within reach, left in chair, nurse notified, and no alarms engaged upon entry Restraints: No Education Education Given To: patient Education Provided: PT Role, PT Goals, Plan of Care, and Discharge Recommendations Education Method: Verbal Barriers to Learning: None Education Outcome: Verbalized Understanding Goals Patient Stated Goal: To go home this weekend Encounter Problems Encounter Problems (Active) Cardiac Patient will be independent with P&C exercises. Start: (more content not included)... [facility] 09-21-2024 Note Formatting of this n ote is different from the original. Addendum created 09/21/24821 by ALICE Ac CRNA Attestation recorded in Intraprocedure, Intraprocedure Attestations filed [facility] Work Phone: 09-21-2024 Note Addendum created 821 by ALICE Ac CRNA Attestation recorded in Intraprocedure, Intraprocedure Attestations filed [facility] 09-21-2024 Miscellaneous Notes Addendum created 09/21/24821 by ALICE Ac CRNA Attestation recorded in Intraprocedure, Intraprocedure Attestations filed Patient: Fozia Breen Procedure Summary Date: 09/20/24 Room / Location: [place] [address] [facility] Operating Room Anesthesia Start: 1326 Anesthesia Stop: 1628 Procedures: THORACOSCOPY WITH WEDGE RESECTION LEFT LOWER LOBE (Left: Chest) LOBECTOMY, LUNG, OPEN (Left: Chest) Diagnosis: Solitary pulmonary nodule Surgeons: Lee Ann Perez MD Responsible Provider: ALICE Love CRNA Anesthesia Type: general ASA Status: 3 Anesthesia Type: general Vitals Value Taken Time BP 113/65 09/20/24 16:25 Temp 36.4 09/20/24 16:29 Pulse 94 09/20/24 16:28 Resp 21 09/20/24 16:28 SpO2 95 % 09/20/24 16:28 Vitals shown include unfiled device data. Anesthesia Post Evaluation Patient location during evaluation: PACU Patient participation: complete - patient participated Level of consciousness: awake and alert Pain management: satisfactory to patient Airway patency: patent Dental Injury: no Cardiovascular status: acceptable, blood pressure returned to baseline and hemodynamically stable Respiratory status: acceptable and spontaneous ventilation Hydration status: euvolemic Nausea/Vomiting: controlled No notable events documented. Patient can be discharged once all PACU criteria has been met. documented in this encounter [facility] 09-21-2024 Note Formatting of this n ote is different from the original. Care Management Progress Note Consults to IP CONSULT TO ANESTHESIOLOGY - ACUTE PAIN SERVICE Initial Assessment: Chart reviewed. Patient has insurance and PCP listed on EHR. CM notified assigned RN no emergency contacts on chart. Patient documented as AO4. Assigned RN to notify CM/SW if NOK search needed. CM will follow for discharge planning. Discharge Planning/Barrier: 09/21/24 0750 Rapid Rounds Attendance Senior Physician Planned Discharge Disposition Other (TBD) Today we still await Administering IV medications;Clinical stability;Energy Engineer recommendations (comment);Symptomatic control Additional Comments: SEALS ENGRAVER pain pump, chest tubes, PT/OTpending Discharge Plan: TBD. Case management will continue to follow for discharge planning. Length of Stay (Days): 1 GMLOS: No GMLOS Documented [facility] 09-21-2024 Note Formatting of this n ote is different from the original. Care Management Progress Note Consults to IP CONSULT TO ANESTHESIOLOGY - ACUTE PAIN SERVICE Initial Assessment: Chart reviewed. Patient has insurance and PCP listed on EHR. CM notified assigned RN no emergency contacts on chart. Patient documented as AO4. Assigned RN to notify CM/SW if NOK search needed. CM will follow for discharge planning. Discharge Planning/Barrier: 09/21/24 0750 Rapid Rounds Attendance Senior Physician Planned Discharge Disposition Other (TBD) Today we still await Administering IV medications;Clinical stability;Energy Engineer recommendations (comment);Symptomatic control Additional Comments: SEALS ENGRAVER pain pump, chest tubes, PT/OTpending Discharge Plan: TBD. Case management will continue to follow for discharge planning. Length of Stay (Days): 1 GMLOS: No GMLOS Documented [facility] 09-21-2024 Note Care Management Prog ress Note Consults to IP CONSULT TO ANESTHESIOLOGY - ACUTE PAIN SERVICE Initial Assessment: Chart reviewed. Patient has insurance and PCP listed on EHR. CM notified assigned RN no emergency contacts on chart. Patient documented as AO4. Assigned RN to notify CM/SW if NOK search needed. CM will follow for discharge planning. Discharge Planning/Barrier: 09/21/24 0750 Rapid Rounds Attendance Senior Physician Planned Discharge Disposition Other (TBD) Today we still await Administering IV medications;Clinical stability;Energy Engineer recommendations (comment);Symptomatic control Additional Comments: SEALS ENGRAVER pain pump, chest tubes, PT/OTpending Discharge Plan: TBD. Case management will continue to follow for discharge planning. Length of Stay (Days): 1 GMLOS: No GMLOS Documented [facility] 09-20-2024 Nurse Note Patient family/visitor updated by RN at this time. [facility] 09-20-2024 Note Formatting of this n ote is different from the original. Patient: Fozia Breen Procedure Summary Date: 09/20/24 Room / Location: [address] Operating Room Anesthesia Start: 1325 Anesthesia Stop: 1627 Procedures: THORACOSCOPY WITH WEDGE RESECTION LEFT LOWER LOBE (Left: Chest) LOBECTOMY, LUNG, OPEN (Left: Chest) Diagnosis: Solitary pulmonary nodule Surgeons: Lee Ann Perez MD Responsible Provider: ALICE Love CRNA Anesthesia Type: general ASA Status: 3 Anesthesia Type: general Vitals Value Taken Time BP 113/65 09/20/24 16:25 Temp 36.4 09/20/24 16:29 Pulse 94 09/20/24 16:28 Resp 21 09/20/24 16:28 SpO2 95 % 09/20/24 16:28 Vitals shown include unfiled device data. Anesthesia Post Evaluation Patient location during evaluation: PACU Patient participation: complete - patient participated Level of consciousness: awake and alert Pain management: satisfactory to patient Airway patency: patent Dental Injury: no Cardiovascular status: acceptable, blood pressure returned to baseline and hemodynamically stable Respiratory status: acceptable and spontaneous ventilation Hydration status: euvolemic Nausea/Vomiting: controlled No notable events documented. Patient can be discharged once all PACU criteria has been met. T [facility] 09-20-2024 Note Patient: Fozia Breen Procedure Summary Date: 09/20/24 Room / Location: [address] Operating Room Anesthesia Start: 1325 Anesthesia Stop: 1627 Procedures: THORACOSCOPY WITH WEDGE RESECTION LEFT LOWER LOBE (Left: Chest) LOBECTOMY, LUNG, OPEN (Left: Chest) Diagnosis: Solitary pulmonary nodule Surgeons: Lee Ann Perez MD Responsible Provider: Mariia A O'Jabari, ENGINEERING DRAFTER - DATABASES COMPUTER CONSULTANT Anesthesia Type: general ASA Status: 3 Anesthesia Type: general Vitals Value Taken Time BP 113/65 09/20/24 16:25 Temp 36.4 09/20/24 16:29 Pulse 94 09/20/24 16:28 Resp 21 09/20/24 16:28 SpO2 95 % 09/20/24 16:28 Vitals shown include unfiled device data. Anesthesia Post Evaluation Patient location during evaluation: PACU Patient participation: complete - patient participated Level of consciousness: awake and alert Pain management: satisfactory to patient Airway patency: patent Dental Injury: no Cardiovascular status: acceptable, blood pressure returned to baseline and hemodynamically stable Respiratory status: acceptable and spontaneous ventilation Hydration status: euvolemic Nausea/Vomiting: controlled No notable events documented. Patient can be discharged once all PACU criteria has been met. [facility] 09-20-2024 Anesthesiology Postoperative evaluation and management note Patient: Fozia Breen Procedure Summary Date: 09/20/24 Room / Location: [facility] Operating Room Anesthesia Start: 1326 Anesthesia Stop: 1628 Procedures: THORACOSCOPY WITH WEDGE RESECTION LEFT LOWER LOBE (Left: Chest) LOBECTOMY, LUNG, OPEN (Left: Chest) Diagnosis: Solitary pulmonary nodule Surgeons: Lee Ann Perez MD Responsible Provider: ALICE Love CRNA Anesthesia Type: general ASA Status: 3 Anesthesia Type: general Vitals Value Taken Time BP 136/105 09/20/24 16:25 Temp 36.4 09/20/24 16:28 Pulse 93 09/20/24 16:27 Resp 25 09/20/24 16:27 SpO2 95 % 09/20/24 16:27 Vitals shown include unfiled device data. Anesthesia Post Evaluation Patient participation: complete - patient participated Level of consciousness: sleepy but arousable Pain management: satisfactory to patient Multimodal analgesia pain management approach Airway patency: patent Two or more strategies used to mitigate risk of obstructive sleep apnea Respiratory status: acceptable, spontaneous ventilation and supplemental oxygen Cardiovascular status: hemodynamically stable and normal Hydration status: acceptable PONV: none No notable events documented. MIPS #430 PONV Patient received an inhalational anesthetic (4554F) Patient exhibits three or more risk factors for PONV (4556F) Patient received at leaset 2 prophylactic Rx PONV anti-emtic agents of different classes preop and/or intraop (G9775) MIPS # 424 Perioperative Temperature Management Anesthesia time was 60 minutes or longer (4255F) Anesthesai administered was General (inhalational or TIVA) or Neuraxial block (X0424) At least one body temperature greater than 95.8F/35.5C achieved within the 30 mins immediately prior to or the 15 minutes immediately following anesthesia end time (G9771) MIPS #477 Multimodal Pain Management Not emergent case Patient was administered multimodal pain management (two or more drugs and/or interventions excluding systemic opioids) in the periopeartive period occurring at some time between 6 hours prior to anesthesia start time until discharged from PACU (G2148) MIPS #404 Anesthesiology Smoking Abstinence The patient is not a current smoker (e.g. cigarette, cigar, pipe, e-cigarette/vaping/marijuana) If no stop here (XX404) I completed my handoff to the receiving clinician during which we: 1. Identified the patient 2. Identified the responsible provider 3. Reviewed the pertinent medical history 4. Discussed the surgical course 5. Reviewed intra-op anesthesia management and issues during anesthesia 6. Set expectations for post-procedure period 7. Allowed opportunity for questions and acknowledgement of understanding. [employer] Phone: 09-20-2024 Note Patient: Fozia Breen Procedure Summary Date: 09/20/24 Room / Location: [facility] Operating Room Anesthesia Start: 1326 Anesthesia Stop: 1628 Procedures: THORACOSCOPY WITH WEDGE RESECTION LEFT LOWER LOBE (Left: Chest) LOBECTOMY, LUNG, OPEN (Left: Chest) Diagnosis: Solitary pulmonary nodule Surgeons: Lee Ann Perez MD Responsible Provider: ALICE Love CRNA Anesthesia Type: general ASA Status: 3 Anesthesia Type: general Vitals Value Taken Time BP 136/105 09/20/24 16:25 Temp 36.4 09/20/24 16:28 Pulse 93 09/20/24 16:27 Resp 25 09/20/24 16:27 SpO2 95 % 09/20/24 16:27 Vitals shown include unfiled device data. Anesthesia Post Evaluation Patient participation: complete - patient participated Level of consciousness: sleepy but arousable Pain management: satisfactory to patient Multimodal analgesia pain management approach Airway patency: patent Two or more strategies used to mitigate risk of obstructive sleep apnea Respiratory status: acceptable, spontaneous ventilation and supplemental oxygen Cardiovascular status: hemodynamically stable and normal Hydration status: acceptable PONV: none No notable events documented. MIPS #430 PONV Patient received an inhalational anesthetic (4554F) Patient exhibits three or more risk factors for PONV (4556F) Patient received at leaset 2 prophylactic Rx PONV anti-emtic agents of different classes preop and/or intraop (G9775) MIPS # 424 Perioperative Temperature Management Anesthesia time was 60 minutes or longer (4255F) Anesthesai administered was General (inhalational or TIVA) or Neuraxial block (X0424) At least one body temperature greater than 95.8F/35.5C achieved within the 30 mins immediately prior to or the 15 minutes immediately following anesthesia end time (G9771) MIPS #477 Multimodal Pain Management Not emergent case Patient was administered multimodal pain management (two or more drugs and/or interventions excluding systemic opioids) in the periopeartive period occurring at some time between 6 hours prior to anesthesia start time until discharged from PACU (G2148) MIPS #404 Anesthesiology Smoking Abstinence The patient is not a current smoker (e.g. cigarette, cigar, pipe, e-cigarette/vaping/marijuana) If no stop here (XX404) I completed my handoff to the receiving clinician during which we: 1. Identified the patient 2. Identified the responsible provider 3. Reviewed the pertinent medical history 4. Discussed the surgical course 5. Reviewed intra-op anesthesia management and issues during anesthesia 6. Set expectations for post-procedure period 7. Allowed opportunity for questions and acknowledgement of understanding. [facility] 09-20-2024 Surgical operatio n note Patient: Fozia Breen Procedure Summary Date: 09/20/24 Room / Location: [facility] Operating Room Anesthesia Start: 1326 Anesthesia Stop: 1628 Procedures: THORACOSCOPY WITH WEDGE RESECTION LEFT LOWER LOBE (Left: Chest) LOBECTOMY, LUNG, OPEN (Left: Chest) Diagnosis: Solitary pulmonary nodule Surgeons: Lee Ann Perez MD Responsible Provider: ALICE Love CRNA Anesthesia Type: general ASA Status: 3 Anesthesia Type: general Vitals Value Taken Time BP 136/105 09/20/24 16:25 Temp 36.4 09/20/24 16:28 Pulse 93 09/20/24 16:27 Resp 25 09/20/24 16:27 SpO2 95 % 09/20/24 16:27 Vitals shown include unfiled device data. Anesthesia Post Evaluation Patient participation: complete - patient participated Level of consciousness: sleepy but arousable Pain management: satisfactory to patient Multimodal analgesia pain management approach Airway patency: patent Two or more strategies used to mitigate risk of obstructive sleep apnea Respiratory status: acceptable, spontaneous ventilation and supplemental oxygen Cardiovascular status: hemodynamically stable and normal Hydration status: acceptable PONV: none No notable events documented. MIPS #430 PONV Patient received an inhalational anesthetic (4554F) Patient exhibits three or more risk factors for PONV (4556F) Patient received at leaset 2 prophylactic Rx PONV anti-emtic agents of different classes preop and/or intraop (G9775) MIPS # 424 Perioperative Temperature Management Anesthesia time was 60 minutes or longer (4255F) Anesthesai administered was General (inhalational or TIVA) or Neuraxial block (X0424) At least one body temperature greater than 95.8F/35.5C achieved within the 30 mins immediately prior to or the 15 minutes immediately following anesthesia end time (G9771) MIPS #477 Multimodal Pain Management Not emergent case Patient was administered multimodal pain management (two or more drugs and/or interventions excluding systemic opioids) in the periopeartive period occurring at some time between 6 hours prior to anesthesia start time until discharged from PACU (G2148) MIPS #404 Anesthesiology Smoking Abstinence The patient is not a current smoker (e.g. cigarette, cigar, pipe, e-cigarette/vaping/marijuana) If no stop here (XX404) I completed my handoff to the receiving clinician during which we: 1. Identified the patient 2. Identified the responsible provider 3. Reviewed the pertinent medical history 4. Discussed the surgical course 5. Reviewed intra-op anesthesia management and issues during anesthesia 6. Set expectations for post-procedure period 7. Allowed opportunity for questions and acknowledgement of understanding. Associated Order(s): Airway Airway Date/Time: 09/20/2024 1:40 PM Reason: scheduled Airway not difficult General Information and Staff Patient location during procedure: Procedural Anesthesiologist: Jorge Ortiz DO Resident/DATABASES COMPUTER CONSULTANT: ALICE Love CRNA Performed: DATABASES COMPUTER CONSULTANT Patient Condition Indications for airway management: anesthesia and airway protection Patient position: sniffing Sedation level: Asleep Final Airway Details Preoxygenated: yes Final airway type: endotracheal airway Successful airway: ETT - double lumen left Cuffed: yes Successful intubation technique: direct laryngoscopy Adjuncts used in placement: intubating stylet Endotracheal tube insertion site: oral Blade: Miri Blade size: #3 ETT DL size (fr): 35 Cormack-Lehane Classification: grade IIa - partial view of glottis Placement verified by: chest auscultation, bronchoscopy, capnometry and single lung ventilation Measured from: lips ETT to lips (cm): 29 Ventilation between attempts: BVM Number of attempts at approach: 1 Additional Comments Atraumatic, dentition & oral mucosa unchanged. Placement verified by bronch with Dr. Ortiz Associated Order(s): Peripheral IV Peripheral IV Date/Time: 09/20/2024 1:50 PM Inserted by: ALICE Love CRNA Placement Needle size: 18 G Laterality: right Location: hand Local anesthetic: none Site prep: chlorhexidine Technique: anatomical landmarks Attempts: 1 Associated Order(s): Peripheral Block Peripheral Block Time Out: 09/20/2024 1:45 PM Patient location during procedure: Procedural Start time: 09/20/2024 1:45 PM End time: 09/20/2024 1:47 PM Reason for block: at surgeon's request and post-op pain management Staffing Performed: DATABASES COMPUTER CONSULTANT Anesthesiologist: Jorge Ortiz DO Resident/DATABASES COMPUTER CONSULTANT: ALICE Hopper CRNA Preanesthetic Checklist Completed: patient identified, IV checked, site marked, risks and benefits discussed, surgical consent, monitors and equipment checked, pre-op evaluation and timeout performed Region: [place] Primary: Serratus Anterior Peripheral Block Patient position: supine Prep: ChloraPrep Patient monitoring: heart rate, cardiac cath tech, continuous pulse ox and continuous capnometry O2: ETT/LMA Laterality: left Injection technique: single-shot Guidance: ultrasound guided -image retained in chart, tip of the needle identified by ultraound during injection. Needle Needle: 22G X 80 mm Additional Notes 09/20/2024 1:45 PM Assessment Injection assessment: negative aspiration for heme, no paresthesia on injection and incremental injection Paresthesia pain: none Heart rate change: no Slow fractionated injection: yes Required Documentation: Relevant anatomy identified (Nerves, Vessels, Muscles), Local anesthetic spread visualized around nerves or plane., Local anesthetic injected without difficulty, No EKG changes noted, Negative for blood on aspiration, Local anesthetic injected incrementally with intermittent aspiration every 5 mL, No symptoms of toxicity, No paresthesias reported by patient during injection and Normal resistance with injectionMedications xyyIXITCjiucz-nxwrchdctej-fvcemeye ine (TAP) syringe - Injection 20 mL - 09/20/2024 1:45:00 PM bupivacaine liposome (Exparel) 1.3 % injection - Injection 10 mL - 09/20/2024 1:45:00 PM Associated Order(s): Peripheral Block Peripheral Block Time Out: 09/20/2024 12:55 PM Patient location during procedure: pre-op Start time: 09/20/2024 12:55 PM End time: 09/20/2024 1:00 PM Reason for block: at surgeon's request and post-op pain management Staffing Performed: DATABASES COMPUTER CONSULTANT Anesthesiologist: Jorge Ortiz DO Resident/DATABASES COMPUTER CONSULTANT: ALICE Hopper CRNA Preanesthetic Checklist Completed: patient identified, IV checked, site marked, risks and benefits discussed, surgical consent, monitors and equipment checked, pre-op evaluation and timeout performed Region: [place] Primary: Erector Spinae Peripheral Block Patient position: sitting Prep: ChloraPrep Patient monitoring: heart rate, cardiac cath tech and continuous pulse ox O2: Room air Laterality: left Injection technique: single-shot Guidance: ultrasound guided -image retained in chart, tip of the needle identified by ultraound during injection. Infiltration strength: 2 % Dose: 5 mL Needle Needle: 22G X 80 mm Additional Notes 09/20/2024 12:55 PM and midazolam (Versed) injection - IntraVENous 2 mg - 09/20/2024 12:55:00 PM Assessment Injection assessment: negative aspiration for heme, no paresthesia on injection and incremental injection Paresthesia pain: none Heart rate change: no Slow fractionated injection: yes Required Documentation: Relevant anatomy identified (Nerves, Vessels, Muscles), Local anesthetic spread visualized around nerves or plane., Local anesthetic injected without difficulty, Negative for blood on aspiration, No EKG changes noted, Local anesthetic injected incrementally with intermittent aspiration every 5 mL, No symptoms of toxicity, No paresthesias reported by patient during injection and Normal resistance with injectionMedications midazolam (Versed) injection - IntraVENous 2 mg - 09/20/2024 12:55:00 NFumtDWJUDigmqm-qudkdvsszdw-wasxfa hrine (TAP) syringe - Injection 20 mL - 09/20/2024 12:55:00 PM bupivacaine liposome (Exparel) 1.3 % injection - Injection 10 mL - 09/20/2024 12:55:00 PM Associated Order(s): Arterial Line Arterial Line: Date/Time: 09/20/2024 1:42 PM An arterial line was placed Procedure performed using ultrasound guidance - Image permanently retained with wire or catheter in vein.in the Procedural for the following indication(s): continuous blood pressure monitoring and blood sampling needed. A 20 gauge (size), 1 and 3/4 inch (length), Arrow (type) catheter was placed, into the Right radial artery, secured by Tegaderm and tape. Events: patient tolerated procedure well with no complications. Staffing Performed: DATABASES COMPUTER CONSULTANT Anesthesiologist: Jorge Ortiz DO Resident/DATABASES COMPUTER CONSULTANT: ALICE Hopper CRNA Patient: Fozia Breen Procedure Information Date/Time: 09/20/24 1200 Procedures: THORACOSCOPY WITH WEDGE RESECTION LEFT LOWER LOBE (Left: Chest) POSSIBLE LOBECTOMY, LUNG, OPEN (Left: Chest) Location: [facility] OR Operating Room Surgeons: Lee Ann Perez MD Relevant Problems No relevant active problems Past Medical History: Past Medical History: No date: Allergies No date: Anemia Comment: with No date: Arthritis No date: Carpal tunnel syndrome, right No date: Chronic kidney disease No date: COPD (chronic obstructive pulmonary disease) (HCC) No date: Disease of thyroid gland No date: Pulmonary nodule Past Surgical History: Past Surgical History: No date: CARPAL TUNNEL RELEASE; Right No date: COLONOSCOPY No date: DILATION AND CURETTAGE OF UTERUS No date: EXPLORATORY LAPAROTOMY 1996: HYSTERECTOMY Social History: TOBACCO: reports that she quit smoking about 2 weeks ago. Her smoking use included cigarettes. She started smoking about 42 years ago. She has a 42.3 pack-year smoking history. She has never used smokeless tobacco. ETOH: reports current alcohol use. Social History Substance and Sexual Activity Drug Use Never Family History: Family History[1] Screening: Hysterectomy Clinical information reviewed: Allergies Physical Exam Airway Mallampati: III Cardiovascular Dental (+) chipped Pulmonary Abdominal Anesthesia Plan patient is NPO appropriate Any family history or previous problems with anesthesia no ASA 3 general Any family history or previous problems with anesthesia no Anesthesia Tan Considerations PAT phone call T&S, H&H, EKG ordered DOS ERAS Type General ERAS, no Celebrex d/t NSAID allergy RACHEL Screening No echocardiogram results found for the past 14 days No results found for this or any previous visit. Equipment Requests: Additional Equipment Requests [1] Family History Problem Relation Name Age of Onset Hypertension Mother Diabetes Mother Asthma Mother Ulcerative colitis Mother Arthritis Mother Coronary artery disease Father Heart attack Father Hypertension Father Heart disease Father Coronary artery disease Brother Heart disease Brother Hypertension Brother Heart attack Brother documented in this encounter [facility] 09-20-2024 Procedure anesthe adalberto Narrative Procedure Name Responsible Anesthesiologist Anesthesia Start Time Anesthesia Stop Time THORACOSCOPY WITH WEDGE RESECTION LEFT LOWER LOBE (Left: Chest) Mariia A Ilan, ENGINEERING DRAFTER - DATABASES COMPUTER CONSULTANT 09/20/24 1326 09/20/24 1628 Events Date Time Event Comment 09/20/2024 1056 AN Preop Started 1100 1326 An Start 1329 An Start Data 1329 In Room 1334 An Induction The patient was reevaluated immediately before moderate or deep sedation use and before anesthesia induction. 1340 An Intubation 1350 Anesthesia Ready 1404 An one lung vent 1412 Proc Start 1413 Kamron Significant hyp otension with insufflation. Insufflation stopped & pressure normalized 1451 Kamron SpO2 86%. Dr. Jo Ann wood notified & O2 applied to bronchial port. 1501 Kamron OK to pause OLV and ventilate both lungs at this time to improve SpO2 per Dr. Perez. 1501 An Two-Lung Vent 1504 An one lung vent 1529 An Two-Lung Vent Per Dr. Win perdomo request 1531 An one lung vent 1536 An Two-Lung Vent Per Dr. Win perdomo request 1559 Proc Fin 1607 Kamron Awaiting ICU be d 1616 An Extubation - Spontaneous ventilation - Patient suctioned - Airway removed without difficulty - Spontaneous ventilation maintained 1621 an stop data 1622 Out of Room 1628 An Stop Meds Name Total lidocaine PF (Xylocaine-MPF) local injec tion 2 % 100 mg propofol (Diprivan) injection 10 mg/mL 2 50 mg rocuronium (ZeMuron) 50 mg/5 mL injectio n 100 mg dexAMETHasone (Decadron) PF injection 10 mg/mL 10 mg esmolol (Brevibloc) 60 mg dexmedetomidine (Precedex) 40 mcg in sod ium chloride 0.9 % 10 mL injection 22.06 mcg ondansetron (Zofran) 2 mg/mL injection 4 mg phenylephrine syringe 1 mg/ 10 mL syring e (IV Push for HYPOTENSION) 450 mcg ketamine injection 10 mg/mL (50 mg/5 mL) prefilled syringe 50 mg magnesium sulfate 2000mg in 50 mL IVPB p remix 2 g sugammadex (Bridion) 200 mg/2 mL injecti on 200 mg vancomycin IVPB 1250 mg in 250 mL NS (pr emix) 1 g bupivacaine liposome (Exparel) 1.3 % inj ection 10 mL bupivacaine liposome (Exparel) 1.3 % inj ection 10 mL pvgWMCSVqfvea-tqahmoupwlq-tbdjnpjbgjo (T AP) syringe 20 mL kecDZGVYaauih-nmozfdgvqmm-qnpcfetphul (T AP) syringe 20 mL midazolam (Versed) injection 2 mg ePHEDrine injection 30 mg HYDROmorphone (Dilaudid) injection 2 mg/ mL 0.8 mg lactated Ringer's infusion 300 mL lactated Ringer's (LR) infusion 600 mL * Agents Name O2 Air Isoflurane * Blood No blood administrations on file. Lines, Drains, and Airways Type Details Placement Removal Peripheral IV Placement Date: 09/06 09/30; Placement Time: 1022; Catheter Size: 20 G; Orientation: Left; Location: Hand; Inserted by: LATRELL BUSTILLOS 09/20/24 1022 by Ashlyn Riggs RN Peripheral IV Placement Date: 09/06 09/30; Placement Time: 1350 (created via procedure documentation); Catheter Size: 18 G; Orientation: Right; Location: Hand; Local Anesth: None; Technique: Anatomical landmarks; Inserted by: ALICE Love CRNA; Insertion Attempts: 1; Difficult Venous Access? No 09/20/24 1350 by ALICE Love CRNA Wound/Incision 09/20/24; 1416; Inci westley; Flank; Left, Upper; trocar sites 09/20/24 1416 by Nina Arredondo RN Chest Tube Placement Date: 09/06 09/30; Placement Time: 1504; Inserted by: Hardik Perez MD.; Tube Number: 1 ([id number]); Orientation: Left; Location: Fourth intercostal space; Size: 28 Fr; Drainage System: Mendon/nonsuction water seal drainage, Suction; Sutures Placed: 1 09/20/24 1504 by Pepe Cruz RN Chest Tube Placement Date: 09/06 09/30; Placement Time: 1504; Inserted by: Hardik Perez MD.; Tube Number: 2 ([id number]); Orientation: Left; Location: Fourth intercostal space; Size: 24 Fr; Drainage System: Mendon/nonsuction water seal drainage, Suction; Sutures Placed: 1 09/20/24 1504 by Pepe Cruz RN ETT Placement Date: 09/06 09/30; Placement Time: 1340 (created via procedure documentation); Type: ETT - double lumen left; Double Lumen Tube Size: 35 Fr; Cuffed: Yes; Location: Oral; Placement Verification: Auscultation, Bronchoscopy, Capnometry, Single lung ventilation; Airway Comments: Atraumatic, dentition & oral mucosa unchanged. Placement verified by bronch with Dr. Ortiz; Removal Date: 09/20/24; Removal Time: 16109/20/24 1340 by ALICE Love CRNA 09/20/24 1616 by ALICE Love CRNA Arterial Line Placement Date: 09/06 09/30; Placement Time: 134 (created via procedure documentation); Size: 20 G; Orientation: Right; Location: Radial; Securement: Taped; Patient Tolerance: Tolerated well; Removal Date: 09/21/24; Removal Time: 0900; Removal Reason: Per order 09/20/24 1342 by ALICE Hopper CRNA 09/21/24 0900 by Todd Tran RN [facility] [id number] Anesthesiology procedure note* Anesthesia Procedure Notes - ALICE Love CRNA - 09/20/2024 2:23 PM EDTAssociated Order(s): Airway Airway Date/Time: 09/20/2024 1:40 PM Reason: scheduled Airway not difficult General Information and Staff Patient location during procedure: Procedural Anesthesiologist: Jorge Ortiz DO Resident/DATABASES COMPUTER CONSULTANT: ALICE Love CRNA Performed: DATABASES COMPUTER CONSULTANT Patient Condition Indications for airway management: anesthesia and airway protection Patient position: sniffing Sedation level: Asleep Final Airway Details Preoxygenated: yes Final airway type: endotracheal airway Successful airway: ETT - double lumen left Cuffed: yes Successful intubation technique: direct laryngoscopy Adjuncts used in placement: intubating stylet Endotracheal tube insertion site: oral Blade: Miri Blade size: #3 ETT DL size (fr): 35 Cormack-Lehane Classification: grade IIa - partial view of glottis Placement verified by: chest auscultation, bronchoscopy, capnometry and single lung ventilation Measured from: lips ETT to lips (cm): 29 Ventilation between attempts: BVM Number of attempts at approach: 1 Additional Comments Atraumatic, dentition & oral mucosa unchanged. Placement verified by bronch with Dr. Ortiz [facility] [id number] NoteAirway Date/Time: 09/20/2024 1:40 PM Reason: scheduled Airway not difficult General Information and Staff Patient location during procedure: Procedural Anesthesiologist: Jorge Ortiz DO Resident/DATABASES COMPUTER CONSULTANT: ALICE Love CRNA Performed: DATABASES COMPUTER CONSULTANT Patient Condition Indications for airway management: anesthesia and airway protection Patient position: sniffing Sedation level: Asleep Final Airway Details Preoxygenated: yes Final airway type: endotracheal airway Successful airway: ETT - double lumen left Cuffed: yes Successful intubation technique: direct laryngoscopy Adjuncts used in placement: intubating stylet Endotracheal tube insertion site: oral Blade: Miri Blade size: #3 ETT DL size (fr): 35 Cormack-Lehane Classification: grade IIa - partial view of glottis Placement verified by: chest auscultation, bronchoscopy, capnometry and single lung ventilation Measured from: lips ETT to lips (cm): 29 Ventilation between attempts: BVM Number of attempts at approach: 1 Additional Comments Atraumatic, dentition & oral mucosa unchanged. [facility]hesiology procedure note* Anesthesia Procedure Notes - ALICE Love CRNA - 09/20/2024 2:23 PM EDTAssociated Order(s): Peripheral IV Peripheral IV Date/Time: 09/20/2024 1:50 PM Inserted by: ALICE Love CRNA Placement Needle size: 18 G Laterality: right Location: hand Local anesthetic: none Site prep: chlorhexidine Technique: anatomical landmarks Attempts: 1 [facility] [id number] NotePeripheral IV Date/Time: 09/20/2024 1:50 PM Inserted by: ALICE Love CRNA Placement Needle size: 18 G Laterality: right Location: hand Local anesthetic: none Site prep: chlorhexidine Technique: anatomical landmarks Attempts: [address] [place], [place] [id number] Anesthesiology procedure note* Anesthesia Procedure Notes - ALICE Hopper CRNA - 09/20/2024 1:58 PM EDTAssociated Order(s): Peripheral Block Peripheral Block Time Out: 09/20/2024 1:45 PM Patient location during procedure: Procedural Start time: 09/20/2024 1:45 PM End time: 09/20/2024 1:47 PM Reason for block: at surgeon's request and post-op pain management Staffing Performed: DATABASES COMPUTER CONSULTANT Anesthesiologist: Jorge Ortiz DO Resident/DATABASES COMPUTER CONSULTANT: ALICE Hopper CRNA Preanesthetic Checklist Completed: patient identified, IV checked, site marked, risks and benefits discussed, surgical consent, monitors and equipment checked, pre-op evaluation and timeout performed Region: Truncal Primary: Serratus Anterior Peripheral Block Patient position: supine Prep: ChloraPrep Patient monitoring: heart rate, cardiac cath tech, continuous pulse ox and continuous capnometry O2: ETT/LMA Laterality: left Injection technique: single-shot Guidance: ultrasound guided -image retained in chart, tip of the needle identified by ultraound during injection. Needle Needle: 22G X 80 mm Additional Notes 09/20/2024 1:45 PM Assessment Injection assessment: negative aspiration for heme, no paresthesia on injection and incremental injection Paresthesia pain: none Heart rate change: no Slow fractionated injection: yes Required Documentation: Relevant anatomy identified (Nerves, Vessels, Muscles), Local anesthetic spread visualized around nerves or plane., Local anesthetic injected without difficulty, No EKG changes noted, Negative for blood on aspiration, Local anesthetic injected incrementally with intermittentaspiration every 5 mL, No symptoms of toxicity, No paresthesias reported by patient during injection and Normal resistance with injectionMedications sjkHBCHUmcjwl-hufnehyjyks-onrcifhcyek (TAP) syringe - Injection 20 mL - 09/20/2024 1:45:00 PM bupivacaine liposome (Exparel) 1.3 % injection - Injection 10 mL - 09/20/2024 1:45:00 PM [employer] Phone: [phone]) 765-999405-15-2025 NotePeripheral Block Time Out: 09/20/2024 1:45 PM Patient location during procedure: Procedural Start time: 09/20/2024 1:45 PM End time: 09/20/2024 1:47 PM Reason for block: at surgeon's request and post-op pain management Staffing Performed: ABEL Anesthesiologist: Jorge Ortiz DO Resident/DATABASES COMPUTER CONSULTANT: ALICE Hopper CRNA Preanesthetic Checklist Completed: patient identified, IV checked, site marked, risks and benefits discussed, surgical consent, monitors and equipment checked, pre-op evaluation and timeout performed Region: Truncal Primary: Serratus Anterior Peripheral Block Patient position: supine Prep: ChloraPrep Patient monitoring: heart rate, cardiac cath tech, continuous pulse ox and continuous capnometry O2: ETT/LMA Laterality: left Injection technique: single-shot Guidance: ultrasound guided -image retained in chart, tip of the needle identified by ultraound during injection. Needle Needle: 22G X 80 mm Additional Notes 09/20/2024 1:45 PM Assessment Injection assessment: negative aspiration for heme, no paresthesia on injection and incremental injection Paresthesia pain: none Heart rate change: no Slow fractionated injection: yes Required Documentation: Relevant anatomy identified (Nerves, Vessels, Muscles), Local anesthetic spread visualized around nerves or plane., Local anesthetic injected without difficulty, No EKG changes noted, Negative for blood on aspiration, Local anesthetic injected incrementally with intermittent aspiration every 5 mL, No symptoms of toxicity, No paresthesias reported by patient during injection and Normal resistance with injectionMedications iqaXFOMAourlf-ojrrvrnlarw-mxekzkrkdpm (TAP) syringe - Injection 20 mL - 09/20/2024 1:45:00 PM bupivacaine liposome (Exparel) 1.3 % injection - Injection 10 mL - 09/20/2024 1:45:00 [facility]05-15-2025 Anesthesiology procedure note* Anesthesia Procedure Notes - ALICE Hopper CRNA - 09/20/2024 1:54 PM EDTAssociated Order(s): Peripheral Block Peripheral Block Time Out: 09/20/2024 12:55 PM Patient location during procedure: pre-op Start time: 09/20/2024 12:55 PM End time: 09/20/2024 1:00 PM Reason for block: at surgeon's request and post-op pain management Staffing Performed: DATABASES COMPUTER CONSULTANT Anesthesiologist: Jorge Ortiz DO Resident/DATABASES COMPUTER CONSULTANT: ALICE Hopper CRNA Preanesthetic Checklist Completed: patient identified, IV checked, site marked, risks and benefits discussed, surgical consent, monitors and equipment checked, pre-op evaluation and timeout performed Region: Truncal Primary: Erector Spinae Peripheral Block Patient position: sitting Prep: ChloraPrep Patient monitoring: heart rate, cardiac cath tech and continuous pulse ox O2: Room air Laterality: left Injection technique: single-shot Guidance: ultrasound guided -image retained in chart, tip of the needle identified by ultraound during injection. Infiltration strength: 2 % Dose: 5 mL Needle Needle: 22G X 80 mm Additional Notes 09/20/2024 12:55 PM and midazolam (Versed) injection - IntraVENous 2 mg - 09/20/2024 12:55:00 PM Assessment Injection assessment: negative aspiration for heme, no paresthesia on injection and incremental injection Paresthesia pain: none Heart rate change: no Slow fractionated injection: yes Required Documentation: Relevant anatomy identified (Nerves, Vessels, Muscles), Local anesthetic spread visualized around nerves or plane., Local anesthetic injected without difficulty, Negative for blood on aspiration, No EKG changes noted, Local anesthetic injected incrementally with intermittentaspiration every 5 mL, No symptoms of toxicity, No paresthesias reported by patient during injection and Normal resistance with injectionMedications midazolam (Versed) injection - IntraVENous 2 mg - 09/20/2024 12:55:00 AAkkqUFZTXyehcv-qhvrcwssibu-faakonaryha (TAP) syringe - Injection 20 mL - 09/20/2024 12:55:00 PM bupivacaine liposome (Exparel) 1.3 % injection - Injection 10 mL - 09/20/2024 12:55:00 PM [facility] [id number] NotePeripheral Block Time Out: 09/20/2024 12:55 PM Patient location during procedure: pre-op Start time: 09/20/2024 12:55 PM End time: 09/20/2024 1:00 PM Reason for block: at surgeon's request and post-op pain management Staffing Performed: ABEL Anesthesiologist: Jorge Ortiz DO Resident/DATABASES COMPUTER CONSULTANT: ALICE Hopper CRNA Preanesthetic Checklist Completed: patient identified, IV checked, site marked, risks and benefits discussed, surgical consent, monitors and equipment checked, pre-op evaluation and timeout performed Region: Truncal Primary: Erector Spinae Peripheral Block Patient position: sitting Prep: ChloraPrep Patient monitoring: heart rate, cardiac cath tech and continuous pulse ox O2: Room air Laterality: left Injection technique: single-shot Guidance: ultrasound guided -image retained in chart, tip of the needle identified by ultraound during injection. Infiltration strength: 2 % Dose: 5 mL Needle Needle: 22G X 80 mm Additional Notes 09/20/2024 12:55 PM and midazolam (Versed) injection - IntraVENous 2 mg - 09/20/2024 12:55:00 PM Assessment Injection assessment: negative aspiration for heme, no paresthesia on injection and incremental injection Paresthesia pain: none Heart rate change: no Slow fractionated injection: yes Required Documentation: Relevant anatomy identified (Nerves, Vessels, Muscles), Local anesthetic spread visualized around nerves or plane., Local anesthetic injected without difficulty, Negative for blood on aspiration, No EKG changes noted, Local anesthetic injected incrementally with intermittent aspiration every 5 mL, No symptoms of toxicity, No paresthesias reported by patient during injection and Normal resistance with injectionMedications midazolam (Versed) injection - IntraVENous 2 mg - 09/20/2024 12:55:00 IRhcmTRPAWpacoz-mualubrtier-wrtrgwvohov (TAP) syringe - Injection 20 mL - 09/20/2024 12:55:00 PM bupivacaine liposome (Exparel) 1.3 % injection - Injection 10 mL - 09/20/2024 12:55:00 [facility]05-15-2025 Anesthesiology procedure note* Anesthesia Procedure Notes - ALICE Hopper CRNA - 09/20/2024 1:53 PM EDTAssociated Order(s): Arterial Line Arterial Line: Date/Time: 09/20/2024 1:42 PM An arterial line was placed Procedure performed using ultrasound guidance - Image permanently retained with wire or catheter invein.in the Procedural for the following indication(s): continuous blood pressure monitoring and blood sampling needed. A 20 gauge (size), 1 and 3/4 inch (length), Arrow (type) catheter was placed, into the Right radialartery, secured by Tegaderm and tape. Events: patient tolerated procedure well with no complications. Staffing Performed: ABEL Anesthesiologist: Jorge Ortiz DO Resident/DATABASES COMPUTER CONSULTANT: Jani Mendoza APRN - ABEL [facility] [id number] NoteArterial Line: Date/Time: 09/20/2024 1:42 PM An arterial line was placed Procedure performed using ultrasound guidance - Image permanently retained with wire or catheter in vein.in the Procedural for the following indication(s): continuous blood pressure monitoring and blood sampling needed. A 20 gauge (size), 1 and 3/4 inch (length), Arrow (type) catheter was placed, into the Right radial artery, secured by Tegaderm and tape. Events: patient tolerated procedure well with no complications. Staffing Performed: ABEL Anesthesiologist: Jorge Ortiz DO Resident/DATABASES COMPUTER CONSULTANT: Jani Mendoza APRN - [facility]05-15-2025 Procedure note* Op Note - Lee Ann Perez MD - 09/20/2024 1:29 PM EDT Images from the original note were not included. [facility] Cardiothoracic Surgery Operative Report Pre-operative Diagnosis: PET positive left lower lobe lung nodule suspicious for malignancy Post-operative Diagnosis: Same, frozen section consistent with non-small cell lung cancer Procedure: Diagnostic left thoracoscopy, conversion to open thoracotomy with wedge resection of theleft lower lobe lung lesion with frozen section; left lower lobectomy with mediastinal lymph node sampling (levels 8, 10, 12, 5) Surgeon: Lee Ann Perez MD Hr Recruiter(s): NO Pacheco MD Anesthesia: General Estimated blood loss: 100 cc Total IV fluids: See anesthesia record Drains: Pleural drains left in place Specimens: Wedge resection left lower lobe, completion left upper lobectomy, mediastinal lymph nodes resections 8, 10, 12, 5 Complications: None Condition: Stable Prophylactic Antibiotics: Yes 1st or 2nd generation cephalosporin given (or other antibiotic in the event of an allergy) within 1hour of surgical incision (two hours if receiving Vancomycin or flouroquinolone) If NO, indication reason why: [] Patient on continuous antibiotics for documented preoperative infection [] Other: Classification of Wound Prior to Procedure: II Classification of Wound After Procedure: II INDICATIONS FOR PROCEDURE: A PET positive, growing lung nodule within the left lower lobe was discovered in a 63 YO current smoker with a long standing history of rheumatoid arthritis. This lesion was originally detected and measured 5mm (we have no record of that imaging). Presently, the lesion in the LLL measures 10mm and is PET-avid. The treatment options that we discussed included continued observation, needle biopsy, or surgical excisional biopsy via wedge resection with frozen section and lower lobectomy if malignancy was identified. The risks benefits and alternatives to all of these options were discussed and patient wishes to proceed with the most definitive excisional biopsy and lobectomy at the same setting if frozen sectionproved the lesion to be malignant. DESCRIPTION OF PROCEDURE: Patient was brought to the operative suite in the fasting state. General endotracheal anesthesia was instituted and a double-lumen endotracheal tube was placed for isolation of the lung. IVs and arterial monitoring were arranged by the department of anesthesia. Patient was placed on the lateral decubitus position preparation for left thoracoscopy. After the patient was positioned prepped and draped, timeout was conducted. We began with a thoracoscopic evaluation of the left lung. A small incision was made as the lung was isolated and the thoracoscope was inserted through a Thoracoport. An accessory port was placed as well and this allowed us to visualize the entire lung. No evidence of malignancy was seen on the surface of the lung. The undersurface of the rib cage was free of pathology. Attempted identification of the left lower lobe nodule was unsuccessful. Therefore, we converted to a open muscle-sparing minithoracotomy. Access was gained to the 6 intercostal space. At that point we palpated the lung and were able to identify the nodule just below the surface of the lung on the left lower lobe. Using a linear stapler, a wedge resection was performed to incorporate this mass into the specimen. The specimen was sent for pathologic evaluation. Frozen section revealed that this was a non-small cell carcinoma. Therefore, we proceeded with leftlower lobectomy as was discussed preoperatively. The left lower lobectomy was performed by mobilizing the inferior pulmonary ligament and mobilizingthe hilum anteriorly posteriorly. We then identified the left lower lobe pulmonary vein and isolated and simultaneously stapled and transected using a stapler. The pulmonary arterial branches were then dissected free from the main left-sided pulmonary artery. Again these were individually isolated/selectively stapled and transected using a linear stapler. We completed the fissural attachments with a combination of cautery and a linear stapler. Once we had completely severed all vascular connections to the left lung, we fired a staple across the lower lobe bronchus after assuring that there was good aeration of the remainder of the lung. Specimen was sent for pathologic evaluation. The bronchial stump was tested to 30 cm of pressure and no air leaks were seen. We again proceeded with mediastinal lymph node sampling and sampled lymph nodes from level 5 as well as levels 8, 10, 12). These were sent separately labeled containers. Once the nodes had been sent for pathologic evaluation, chest tubes were inserted through 2 of the trocar's plates that were placed previously and appropriately positioned within the hemithorax. We then reexpanded the lung and having seen no significant air leaks we proceeded with closure of the ribs were reapproximated with #2 Vicryl's and the overlying tissues were closed multiple layers. The patient was awakened extubated to recovery room in stable condition. [facility] [id number] Procedure note* Brief Op Note - Lee Ann Perez MD - 09/20/2024 1:29 PM EDT Date: 09/20/2024 Location: [facility] OR Name: Fozia Breen, : 1960, Diagnosis Pre-op Diagnosis * Solitary pulmonary nodule [R91.1] Post-op Diagnosis * Solitary pulmonary nodule [R91.1] Procedures THORACOSCOPY WITH WEDGE RESECTION LEFT LOWER LOBE 43422 - IA THORACOSCOPY W/DX WEDGE RESEXN ANATO LUNG RESEXN LOBECTOMY, LUNG, OPEN 06604 - IA RMVL LUNG OTHER THAN PNEUMONECTOMY 1 LOBE LOBECT Surgeons * Lee Ann Perez - Primary Procedure Summary Anesthesia: General ASA: III Estimated Blood Loss: 50 mL Drains: Chest Tube 1 Left Fourth intercostal space 28 Fr (Active) Function To water seal 09/20/24 1625 Dressing Status Clean, dry & intact 09/20/24 1625 Site Assessment Not assessed 09/20/24 1625 Chest Tube 2 Left Fourth intercostal space 24 Fr (Active) Function To water seal 09/20/24 1625 Dressing Status Clean, dry & intact 09/20/24 1625 Site Assessment Not assessed 09/20/24 1625 Specimens ID Source Type Tests Collected By Collected At Frozen? Priority Lab ID 1 Lung, Left Lower Lobe Tissue TISSUE EXAM Lee Ann Perez MD 09/20/24 1440 Yes Description: Left Lower Lobe Wedge Resection 2 Lung, Left Lower Lobe Tissue TISSUE EXAM Lee Ann Perez MD 09/20/24 1522 Description: Left Lower Lobe 3 Lymph Node Tissue TISSUE EXAM Lee Ann Perez MD 09/20/24 1523 Description: Level 5 4 Lymph Node Tissue TISSUE EXAM Lee Ann Perez MD 09/20/24 1524 Description: Level 4 5 Lymph Node Tissue TISSUE EXAM Lee Ann Perez MD 09/20/24 1526 Description: level 8 6 Lymph Node Tissue TISSUE EXAM Lee Ann Perez MD 09/20/24 1527 Description: level 10 Staff: Iron Pellet Tester: Nina Arredondo RN; Jolly Arteaga RN Relief Iron Pellet Tester: Pepe Cruz RN Scrub Person: Yamile Medina RN; Cary Bustamante RN Findings: No air leak post op X2 chest tubes Intra op frozen - NSCLC Complications: None; patient tolerated the procedure well. Specimens Collected: Order Name Source Comment Collection Info Order Time POTASSIUM WITH MG REFLEX For patients on dialysis to draw potassium day of surgery 09/20/2024 10:06 AM PROTHROMBIN TIME If patient on coumadin within 4 days prior. 09/20/2024 10:06 AM BLOOD TYPE AND SCREEN GEL Blood, Venous Collected By: Ashlyn Riggs RN 09/20/2024 10:07 AM HEMOGLOBIN AND HEMATOCRIT, BLOOD Blood, Venous Collected By: Ashlyn Riggs RN 09/20/2024 10:07 AM TISSUE EXAM Lung, Left Lower Lobe Collected By: Lee Ann Perez MD 09/20/2024 2:40 PM Wound Class: Class I: Clean Blood Products: None Prophylactic Antibiotics: Procedure appropriate prophylactic antibiotic(s) given within 1 hour of surgical incision (two hours if receiving Vancomycin or flouroquinolone) Aneil Junior, MD PGY5, General Surgery Pager #[phone] [facility] [id number] Evaluation note* Pre-Procedure Note - Jean Mcclendon RN - 09/20/2024 1:07 PM EDT Patient stable at this time. Patient denies ringing in ears, numbness or tingling. Family at bedside. [facility] [id number] Attending History and physical note* Lee Ann Perez MD - 09/20/2024 11:59 AM EDT H&P reviewed. The patient was examined and there are no changes to the H&P. Source Note - Lee Ann Perez MD - 08/28/2024 11:00 AM EDT Images from the original note were not included. [facility]ARDIOV[facility]ACIC SURGERY [address] [facility] [address] [facility] [address] Dept: [phone] Dept Loc: [phone] Visit type: New Reason for Visit: PET positive, growing lung nodule left lower lobe. Assessment and plan PET positive, growing lung nodule left lower lobe in a 63 YO current smoker with a long standing history of rheumatoid arthritis. This lesion was originally detected and measured 5mm (we have no record of that imaging). Presently, the lesion in the LLL measures 10mm and is PET-avid. The treatment options that we discussed included continued observation, needle biopsy, or surgical excisional biopsy via wedge resection with frozen section and lower lobectomy if malignancy was identified. The risks benefits and alternatives to all of these options were discussed and patient wishes to proceed with the most definitive excisional biopsy and lobectomy at the same's setting if this should proved to be malignant. This is a reasonable strategy and we will schedule elective surgery. In the meantime, she has already started Chantix, plans on completely stopping smoking on Tuesday of week. I encouraged smoking cessation and we will schedule surgery in approximately 3 weeks to allow her lungs a bit of a chance to recover with good smoking cessation prior to proceeding with surgery. This should minimize the risk for perioperative pneumonia. Her pulmonary function tests and 6-minute exercise test will be done later this week to assure thather pulmonary functions are acceptable. There is no sign of distant metastatic disease. History of Present Illness Fozia Breen is a 63 y.o. female referred by LIZANDRO Ocasio for enlarging, PET positive left lower lobe lung nodule. Per note, pt had lung screening CT chest completed on 07/18/24 which demonstrated a nodular density in the peripheral lateral aspect of the left lower lobe that had increased in size to 10.3 mm, previously 5 mm. PET was then completed on 08/07/24 which demonstrated single focus of abnormal hypermetabolism seen in a 1 cm nodule in the left lower lobe peripherally. 6 min walk test scheduled for 08/30/24. PFT's are scheduled on 08/31/24. Pt is a current smoker. Pt is here now for an evaluation. Past Medical History Past Medical History: Diagnosis Date Allergies Arthritis Carpal tunnel syndrome, right Past Surgical History Past Surgical History: Procedure Laterality Date HYSTERECTOMY 1995 Family History Family History Problem Relation Name Age of Onset Hypertension Mother Diabetes Mother Asthma Mother Ulcerative colitis Mother Arthritis Mother Coronary artery disease Father Heart attack Father Hypertension Father Heart disease Father Coronary artery disease Brother Heart disease Brother Hypertension Brother Heart attack Brother Social History Social History Tobacco Use Smoking status: Every Day Current packs/day: 1.00 Average packs/day: 1 pack/day for 42.3 years (42.3 ttl pk-yrs) Types: Cigarettes Start date: 1982 Smokeless tobacco: Never Substance Use Topics Alcohol use: Yes Comment: holidays/special occasions only Drug use: Never Allergies Allergies Allergen Reactions Penicillins Hives Codeine Hives Erythromycin Hives Medications Current Outpatient Medications: acetaminophen (Tylenol) 500 MG tablet, Take 1,000 mg by mouth 2 times daily., Disp: , Rfl: cetirizine (ZyrTEC) 10 MG tablet, Take 10 mg by mouth daily., Disp: , Rfl: DULoxetine (Cymbalta) [address] capsule, Take 60 mg by mouth daily. Do not crush or chew., Disp: , Rfl: Ergocalciferol (VITAMIN D2 PO), Take 1 tablet by mouth daily., Disp: , Rfl: folic acid (Folvite) 1 MG tablet, Take 2 mg by mouth daily., Disp: , Rfl: leucovorin (Wellcovorin) 15 MG tablet, Take 15 mg by mouth 1 (one) time per week. Take with a full glass of water., Disp: , Rfl: methotrexate 2.5 MG tablet, Take 20 mg by mouth 1 (one) time per week. Follow directions carefully,and ask to explain any part you do not understand. Take exactly as directed., Disp: , Rfl: predniSONE (Deltasone) 5 MG tablet, Take 5 mg by mouth Daily as needed., Disp: , Rfl: varenicline (Chantix) 0.5 MG tablet, Take 0.5 mg by mouth 2 times daily. Take with full glass of water., Disp: , Rfl: Review of Systems Review of Systems Constitutional: Negative. HENT: Negative. Eyes: Negative. Respiratory: Negative. Cardiovascular: Negative. Gastrointestinal: Negative. Endocrine: Negative. Genitourinary: Negative. Musculoskeletal: Negative. Skin: Negative. Allergic/Immunologic: Negative. Neurological: Negative. Hematological: Negative. Psychiatric/Behavioral: Negative. Physical Exam Vitals: BP (!) 136/90 (BP Location: Left arm, Patient Position: Sitting, BP Cuff Size: Large adult) Pulse98 Ht 1.549 m (5' 1") Wt 80.7 kg (178 lb) BMI 33.63 kg/m Constitutional: General: Not in acute distress. Appearance: Normal appearance. Not toxic-appearing. Ear, nose, mouth: Bilateral external ear and nose normal. Nose: Nose normal. Mouth: Appearance normal, no bleeding, moist mucus membranes Eyes: General: No scleral icterus. No discharge from bilateral eyes Extraocular Movements: Extraocular movements intact. Pupils equal and reactive bilaterally Cardiovascular: Heart: Regular rhythm. Normal heart sounds. Pulmonary: Effort: Pulmonary effort is normal. No respiratory distress. Breath sounds: Normal breath sounds. No wheezing. Chest wall: No tenderness. Abdominal: Appearance: Not distended Palpations: There is no abdominal tenderness, no guarding. Musculoskeletal: Bilateral upper and lower extremities: Normal range of motion, no deformity Head: Normocephalic and atraumatic. Neck: Normal range of motion and neck supple. No muscular tenderness. Skin: General: Skin is warm and dry. Coloration: Skin is not jaundiced. Neurological: General: No focal deficit present. Cranial Nerves: No obvious cranial nerve deficit. Psychiatric: Mood and Affect: Mood normal. Thought Content: Thought content normal. Patient has good judgement and insight Mental Status: Alert and oriented to place, person, and time. Labs No results found for: "WBC", "HGB", "PLT", "NA", "K", "CREATININE" Imaging PET 08/07/[address] Chest 07/18/24 Patient Care Team: PCP: Emilie Wheatley MD Pulmonology: Angeline Lew NP-C Disclaimer INFORMED CONSENT:The nature and purpose of the proposed treatment or procedure have been discussed.The risks and benefits of the proposed treatment or procedures have been reviewed. Alternatives have been reviewed in addition to the risks and benefits of not receiving treatments or undergoing procedures. Pursuant to this discussion, the patient agrees to undergo the proposed treatment or procedure. Captured images seen in this note from are not a substitute for a comprehensive interpretation of the entire data set as reflected by the interpreting physician with regard to radiology, echocardiography, and other diagnostic images. This note may have been dictated using [employer] Medical Practice Edition 2.6 and/or [employer] Voice Recognition Feature. The document was proofread, however unrecognized voice recognition 3rd grade teacher errors may be present. [employer] Work Phone: [phone] NoteH&P reviewed. The patient was examined and there are no changes to the H&P.[facility]05-15-2025 Attending History and physical note* Lee Ann Perez MD - 09/20/2024 11:59 AM EDT H&P reviewed. The patient was examined and there are no changes to the H&P. Source Note - Lee Ann Perez MD - 08/28/2024 11:00 AM EDT Images from the original note were not included. [facility]ARDIOVASC[facility]ORAC[facility] SURGERY [address] [facility] [address] Dept: [phone] Dept Loc: [phone] Visit type: New Reason for Visit: PET positive, growing lung nodule left lower lobe. Assessment and plan PET positive, growing lung nodule left lower lobe in a 63 YO current smoker with a long standing history of rheumatoid arthritis. This lesion was originally detected and measured 5mm (we have no record of that imaging). Presently, the lesion in the LLL measures 10mm and is PET-avid. The treatment options that we discussed included continued observation, needle biopsy, or surgical excisional biopsy via wedge resection with frozen section and lower lobectomy if malignancy was identified. The risks benefits and alternatives to all of these options were discussed and patient wishes to proceed with the most definitive excisional biopsy and lobectomy at the same's setting if this should proved to be malignant. This is a reasonable strategy and we will schedule elective surgery. In the meantime, she has already started Chantix, plans on completely stopping smoking on Tuesday ofthis week. I encouraged smoking cessation and we will schedule surgery in approximately 3 weeks to allow her lungs a bit of a chance to recover with good smoking cessation prior to proceeding with surgery. This should minimize the risk for perioperative pneumonia. Her pulmonary function tests and 6-minute exercise test will be done later this week to assure thather pulmonary functions are acceptable. There is no sign of distant metastatic disease. History of Present Illness Fozia Breen is a 63 y.o. female referred by LIZANDRO Ocasio for enlarging, PET positive left lower lobe lung nodule. Per note, pt had lung screening CT chest completed on 07/18/24 which demonstrated a nodular density in the peripheral lateral aspect of the left lower lobe that had increased in size to 10.3 mm, previously 5 mm. PET was then completed on 08/07/24 which demonstrated single focus of abnormal hypermetabolism seen in a 1 cm nodule in the left lower lobe peripherally. 6 min walk test scheduled for 08/30/24. PFT's are scheduled on 08/31/24. Pt is a current smoker. Pt is here now for an evaluation. Past Medical History Past Medical History: Diagnosis Date Allergies Arthritis Carpal tunnel syndrome, right Past Surgical History Past Surgical History: Procedure Laterality Date HYSTERECTOMY 1995 Family History Family History Problem Relation Name Age of Onset Hypertension Mother Diabetes Mother Asthma Mother Ulcerative colitis Mother Arthritis Mother Coronary artery disease Father Heart attack Father Hypertension Father Heart disease Father Coronary artery disease Brother Heart disease Brother Hypertension Brother Heart attack Brother Social History Social History Tobacco Use Smoking status: Every Day Current packs/day: 1.00 Average packs/day: 1 pack/day for 42.3 years (42.3 ttl pk-yrs) Types: Cigarettes Start date: 1982 Smokeless tobacco: Never Substance Use Topics Alcohol use: Yes Comment: holidays/special occasions only Drug use: Never Allergies Allergies Allergen Reactions Penicillins Hives Codeine Hives Erythromycin Hives Medications Current Outpatient Medications: acetaminophen (Tylenol) 500 MG tablet, Take 1,000 mg by mouth 2 times daily., Disp: , Rfl: cetirizine (ZyrTEC) 10 MG tablet, Take 10 mg by mouth daily., Disp: , Rfl: DULoxetine (Cymbalta) [address] capsule, Take 60 mg by mouth daily. Do not crush or chew., Disp: , Rfl: Ergocalciferol (VITAMIN D2 PO), Take 1 tablet by mouth daily., Disp: , Rfl: folic acid (Folvite) 1 MG tablet, Take 2 mg by mouth daily., Disp: , Rfl: leucovorin (Wellcovorin) 15 MG tablet, Take 15 mg by mouth 1 (one) time per week. Take with a full glass of water., Disp: , Rfl: methotrexate 2.5 MG tablet, Take 20 mg by mouth 1 (one) time per week. Follow directions carefully,and ask to explain any part you do not understand. Take exactly as directed., Disp: , Rfl: predniSONE (Deltasone) 5 MG tablet, Take 5 mg by mouth Daily as needed., Disp: , Rfl: varenicline (Chantix) 0.5 MG tablet, Take 0.5 mg by mouth 2 times daily. Take with full glass of water., Disp: , Rfl: Review of Systems Review of Systems Constitutional: Negative. HENT: Negative. Eyes: Negative. Respiratory: Negative. Cardiovascular: Negative. Gastrointestinal: Negative. Endocrine: Negative. Genitourinary: Negative. Musculoskeletal: Negative. Skin: Negative. Allergic/Immunologic: Negative. Neurological: Negative. Hematological: Negative. Psychiatric/Behavioral: Negative. Physical Exam Vitals: BP (!) 136/90 (BP Location: Left arm, Patient Position: Sitting, BP Cuff Size: Large adult) Pulse98 Ht 1.549 m (5' 1") Wt 80.7 kg (178 lb) BMI 33.63 kg/m Constitutional: General: Not in acute distress. Appearance: Normal appearance. Not toxic-appearing. Ear, nose, mouth: Bilateral external ear and nose normal. Nose: Nose normal. Mouth: Appearance normal, no bleeding, moist mucus membranes Eyes: General: No scleral icterus. No discharge from bilateral eyes Extraocular Movements: Extraocular movements intact. Pupils equal and reactive bilaterally Cardiovascular: Heart: Regular rhythm. Normal heart sounds. Pulmonary: Effort: Pulmonary effort is normal. No respiratory distress. Breath sounds: Normal breath sounds. No wheezing. Chest wall: No tenderness. Abdominal: Appearance: Not distended Palpations: There is no abdominal tenderness, no guarding. Musculoskeletal: Bilateral upper and lower extremities: Normal range of motion, no deformity Head: Normocephalic and atraumatic. Neck: Normal range of motion and neck supple. No muscular tenderness. Skin: General: Skin is warm and dry. Coloration: Skin is not jaundiced. Neurological: General: No focal deficit present. Cranial Nerves: No obvious cranial nerve deficit. Psychiatric: Mood and Affect: Mood normal. Thought Content: Thought content normal. Patient has good judgement and insight Mental Status: Alert and oriented to place, person, and time. Labs No results found for: "WBC", "HGB", "PLT", "NA", "K", "CREATININE" Imaging PET 08/07/[address] Chest 07/18/24 Patient Care Team: PCP: Emilie Wheatley MD Pulmonology: LIZANDRO Ocasio Disclaimer INFORMED CONSENT:The nature and purpose of the proposed treatment or procedure have been discussed.The risks and benefits of the proposed treatment or procedures have been reviewed. Alternatives have been reviewed in addition to the risks and benefits of not receiving treatments or undergoing procedures. Pursuant to this discussion, the patient agrees to undergo the proposed treatment or procedure. Captured images seen in this note from are not a substitute for a comprehensive interpretation of the entire data set as reflected by the interpreting physician with regard to radiology, echocardiography, and other diagnostic images. This note may have been dictated using [employer] Practice Edition 2.6 and/or [employer] Voice Recognition Feature. The document was proofread, however unrecognized voice recognition 3rd grade teacher errors may be present. [facility] [id number] NoteH&P reviewed. The patient was examined and there are no changes to the H&P.[facility]05-15-2025 History and physical note* Lee Ann Perez MD - 09/20/2024 11:59 AM EDT H&P reviewed. The patient was examined and there are no changes to the H&P. Source Note - Lee Ann Perez MD - 08/28/2024 11:00 AM EDT Images from the original note were not included. [facility]IOVASC[facility]ACIC SURGERY [address] [facility] [address] [facility] [address] Dept: [phone] Dept Loc: [phone] Visit type: New Reason for Visit: PET positive, growing lung nodule left lower lobe. Assessment and plan PET positive, growing lung nodule left lower lobe in a 63 YO current smoker with a long standing history of rheumatoid arthritis. This lesion was originally detected and measured 5mm (we have no record of that imaging). Presently, the lesion in the LLL measures 10mm and is PET-avid. The treatment options that we discussed included continued observation, needle biopsy, or surgical excisional biopsy via wedge resection with frozen section and lower lobectomy if malignancy was identified. The risks benefits and alternatives to all of these options were discussed and patient wishes to proceed with the most definitive excisional biopsy and lobectomy at the same's setting if this should proved to be malignant. This is a reasonable strategy and we will schedule elective surgery. In the meantime, she has already started Chantix, plans on completely stopping smoking on Tuesday ofs week. I encouraged smoking cessation and we will schedule surgery in approximately 3 weeks to allow her lungs a bit of a chance to recover with good smoking cessation prior to proceeding with surgery. This should minimize the risk for perioperative pneumonia. Her pulmonary function tests and 6-minute exercise test will be done later this week to assure thather pulmonary functions are acceptable. There is no sign of distant metastatic disease. History of Present Illness Fozia Breen is a 63 y.o. female referred by LIZANDRO Ocasio for enlarging, PET positive left lower lobe lung nodule. Per note, pt had lung screening CT chest completed on 07/18/24 which demonstrated a nodular density in the peripheral lateral aspect of the left lower lobe that had increased in size to 10.3 mm, previously 5 mm. PET was then completed on 08/07/24 which demonstrated single focus of abnormal hypermetabolism seen in a 1 cm nodule in the left lower lobe peripherally. 6 min walk test scheduled for 08/30/24. PFT's are scheduled on 08/31/24. Pt is a current smoker. Pt is here now for an evaluation. Past Medical History Past Medical History: Diagnosis Date Allergies Arthritis Carpal tunnel syndrome, right Past Surgical History Past Surgical History: Procedure Laterality Date HYSTERECTOMY 1995 Family History Family History Problem Relation Name Age of Onset Hypertension Mother Diabetes Mother Asthma Mother Ulcerative colitis Mother Arthritis Mother Coronary artery disease Father Heart attack Father Hypertension Father Heart disease Father Coronary artery disease Brother Heart disease Brother Hypertension Brother Heart attack Brother Social History Social History Tobacco Use Smoking status: Every Day Current packs/day: 1.00 Average packs/day: 1 pack/day for 42.3 years (42.3 ttl pk-yrs) Types: Cigarettes Start date: 1982 Smokeless tobacco: Never Substance Use Topics Alcohol use: Yes Comment: holidays/special occasions only Drug use: Never Allergies Allergies Allergen Reactions Penicillins Hives Codeine Hives Erythromycin Hives Medications Current Outpatient Medications: acetaminophen (Tylenol) 500 MG tablet, Take 1,000 mg by mouth 2 times daily., Disp: , Rfl: cetirizine (ZyrTEC) 10 MG tablet, Take 10 mg by mouth daily., Disp: , Rfl: DULoxetine (Cymbalta) [address] capsule, Take 60 mg by mouth daily. Do not crush or chew., Disp: , Rfl: Ergocalciferol (VITAMIN D2 PO), Take 1 tablet by mouth daily., Disp: , Rfl: folic acid (Folvite) 1 MG tablet, Take 2 mg by mouth daily., Disp: , Rfl: leucovorin (Wellcovorin) 15 MG tablet, Take 15 mg by mouth 1 (one) time per week. Take with a full glass of water., Disp: , Rfl: methotrexate 2.5 MG tablet, Take 20 mg by mouth 1 (one) time per week. Follow directions carefully,and ask to explain any part you do not understand. Take exactly as directed., Disp: , Rfl: predniSONE (Deltasone) 5 MG tablet, Take 5 mg by mouth Daily as needed., Disp: , Rfl: varenicline (Chantix) 0.5 MG tablet, Take 0.5 mg by mouth 2 times daily. Take with full glass of water., Disp: , Rfl: Review of Systems Review of Systems Constitutional: Negative. HENT: Negative. Eyes: Negative. Respiratory: Negative. Cardiovascular: Negative. Gastrointestinal: Negative. Endocrine: Negative. Genitourinary: Negative. Musculoskeletal: Negative. Skin: Negative. Allergic/Immunologic: Negative. Neurological: Negative. Hematological: Negative. Psychiatric/Behavioral: Negative. Physical Exam Vitals: BP (!) 136/90 (BP Location: Left arm, Patient Position: Sitting, BP Cuff Size: Large adult) Pulse98 Ht 1.549 m (5' 1") Wt 80.7 kg (178 lb) BMI 33.63 kg/m Constitutional: General: Not in acute distress. Appearance: Normal appearance. Not toxic-appearing. Ear, nose, mouth: Bilateral external ear and nose normal. Nose: Nose normal. Mouth: Appearance normal, no bleeding, moist mucus membranes Eyes: General: No scleral icterus. No discharge from bilateral eyes Extraocular Movements: Extraocular movements intact. Pupils equal and reactive bilaterally Cardiovascular: Heart: Regular rhythm. Normal heart sounds. Pulmonary: Effort: Pulmonary effort is normal. No respiratory distress. Breath sounds: Normal breath sounds. No wheezing. Chest wall: No tenderness. Abdominal: Appearance: Not distended Palpations: There is no abdominal tenderness, no guarding. Musculoskeletal: Bilateral upper and lower extremities: Normal range of motion, no deformity Head: Normocephalic and atraumatic. Neck: Normal range of motion and neck supple. No muscular tenderness. Skin: General: Skin is warm and dry. Coloration: Skin is not jaundiced. Neurological: General: No focal deficit present. Cranial Nerves: No obvious cranial nerve deficit. Psychiatric: Mood and Affect: Mood normal. Thought Content: Thought content normal. Patient has good judgement and insight Mental Status: Alert and oriented to place, person, and time. Labs No results found for: "WBC", "HGB", "PLT", "NA", "K", "CREATININE" Imaging PET 08/07/[address] Chest 07/18/24 Patient Care Team: PCP: Emilie Wheatley MD Pulmonology: LIZANDRO Ocasio Disclaimer INFORMED CONSENT:The nature and purpose of the proposed treatment or procedure have been discussed.The risks and benefits of the proposed treatment or procedures have been reviewed. Alternatives have been reviewed in addition to the risks and benefits of not receiving treatments or undergoing procedures. Pursuant to this discussion, the patient agrees to undergo the proposed treatment or procedure. Captured images seen in this note from are not a substitute for a comprehensive interpretation of the entire data set as reflected by the interpreting physician with regard to radiology, echocardiography, and other diagnostic images. This note may have been dictated using [employer] Medical Practice Edition 2.6 and/or [employer] Voice Recognition Feature. The document was proofread, however unrecognized voice recognition 3rd grade teacher errors may be present. * Lee Ann Perez MD - 09/20/2024 11:59 AM EDT H&P reviewed. The patient was examined and there are no changes to the H&P. Source Note - Lee Ann Perez MD - 08/28/2024 11:00 AM EDT Images from the original note were not included. [facility] CARDIOVASCULAR & THORACIC SURGERY [address] [facility] [address] Dept: [phone] Dept Loc: [phone] Visit type: New Reason for Visit: PET positive, growing lung nodule left lower lobe. Assessment and plan PET positive, growing lung nodule left lower lobe in a 63 YO current smoker with a long standing history of rheumatoid arthritis. This lesion was originally detected and measured 5mm (we have no record of that imaging). Presently, the lesion in the LLL measures 10mm and is PET-avid. The treatment options that we discussed included continued observation, needle biopsy, or surgical excisional biopsy via wedge resection with frozen section and lower lobectomy if malignancy was identified. The risks benefits and alternatives to all of these options were discussed and patient wishes to proceed with the most definitive excisional biopsy and lobectomy at the same's setting if this should proved to be malignant. This is a reasonable strategy and we will schedule elective surgery. In the meantime, she has already started Chantix, plans on completely stopping smoking on Tuesday ofthis week. I encouraged smoking cessation and we will schedule surgery in approximately 3 weeks to allow her lungs a bit of a chance to recover with good smoking cessation prior to proceeding with surgery. This should minimize the risk for perioperative pneumonia. Her pulmonary function tests and 6-minute exercise test will be done later this week to assure thather pulmonary functions are acceptable. There is no sign of distant metastatic disease. History of Present Illness Fozia Breen is a 63 y.o. female referred by LIZANDRO Ocasio for enlarging, PET positive left lower lobe lung nodule. Per note, pt had lung screening CT chest completed on 07/18/24 which demonstrated a nodular density in the peripheral lateral aspect of the left lower lobe that had increased in size to 10.3 mm, previously 5 mm. PET was then completed on 08/07/24 which demonstrated single focus of abnormal hypermetabolism seen in a 1 cm nodule in the left lower lobe peripherally. 6 min walk test scheduled for 08/30/24. PFT's are scheduled on 08/31/24. Pt is a current smoker. Pt is here now for an evaluation. Past Medical History Past Medical History: Diagnosis Date Allergies Arthritis Carpal tunnel syndrome, right Past Surgical History Past Surgical History: Procedure Laterality Date HYSTERECTOMY 1995 Family History Family History Problem Relation Name Age of Onset Hypertension Mother Diabetes Mother Asthma Mother Ulcerative colitis Mother Arthritis Mother Coronary artery disease Father Heart attack Father Hypertension Father Heart disease Father Coronary artery disease Brother Heart disease Brother Hypertension Brother Heart attack Brother Social History Social History Tobacco Use Smoking status: Every Day Current packs/day: 1.00 Average packs/day: 1 pack/day for 42.3 years (42.3 ttl pk-yrs) Types: Cigarettes Start date: 1982 Smokeless tobacco: Never Substance Use Topics Alcohol use: Yes Comment: holidays/special occasions only Drug use: Never Allergies Allergies Allergen Reactions Penicillins Hives Codeine Hives Erythromycin Hives Medications Current Outpatient Medications: acetaminophen (Tylenol) 500 MG tablet, Take 1,000 mg by mouth 2 times daily., Disp: , Rfl: cetirizine (ZyrTEC) 10 MG tablet, Take 10 mg by mouth daily., Disp: , Rfl: DULoxetine (Cymbalta) [address] capsule, Take 60 mg by mouth daily. Do not crush or chew., Disp: , Rfl: Ergocalciferol (VITAMIN D2 PO), Take 1 tablet by mouth daily., Disp: , Rfl: folic acid (Folvite) 1 MG tablet, Take 2 mg by mouth daily., Disp: , Rfl: leucovorin (Wellcovorin) 15 MG tablet, Take 15 mg by mouth 1 (one) time per week. Take with a full glass of water., Disp: , Rfl: methotrexate 2.5 MG tablet, Take 20 mg by mouth 1 (one) time per week. Follow directions carefully,and ask to explain any part you do not understand. Take exactly as directed., Disp: , Rfl: predniSONE (Deltasone) 5 MG tablet, Take 5 mg by mouth Daily as needed., Disp: , Rfl: varenicline (Chantix) 0.5 MG tablet, Take 0.5 mg by mouth 2 times daily. Take with full glass of water., Disp: , Rfl: Review of Systems Review of Systems Constitutional: Negative. HENT: Negative. Eyes: Negative. Respiratory: Negative. Cardiovascular: Negative. Gastrointestinal: Negative. Endocrine: Negative. Genitourinary: Negative. Musculoskeletal: Negative. Skin: Negative. Allergic/Immunologic: Negative. Neurological: Negative. Hematological: Negative. Psychiatric/Behavioral: Negative. Physical Exam Vitals: BP (!) 136/90 (BP Location: Left arm, Patient Position: Sitting, BP Cuff Size: Large adult) Pulse98 Ht 1.549 m (5' 1") Wt 80.7 kg (178 lb) BMI 33.63 kg/m Constitutional: General: Not in acute distress. Appearance: Normal appearance. Not toxic-appearing. Ear, nose, mouth: Bilateral external ear and nose normal. Nose: Nose normal. Mouth: Appearance normal, no bleeding, moist mucus membranes Eyes: General: No scleral icterus. No discharge from bilateral eyes Extraocular Movements: Extraocular movements intact. Pupils equal and reactive bilaterally Cardiovascular: Heart: Regular rhythm. Normal heart sounds. Pulmonary: Effort: Pulmonary effort is normal. No respiratory distress. Breath sounds: Normal breath sounds. No wheezing. Chest wall: No tenderness. Abdominal: Appearance: Not distended Palpations: There is no abdominal tenderness, no guarding. Musculoskeletal: Bilateral upper and lower extremities: Normal range of motion, no deformity Head: Normocephalic and atraumatic. Neck: Normal range of motion and neck supple. No muscular tenderness. Skin: General: Skin is warm and dry. Coloration: Skin is not jaundiced. Neurological: General: No focal deficit present. Cranial Nerves: No obvious cranial nerve deficit. Psychiatric: Mood and Affect: Mood normal. Thought Content: Thought content normal. Patient has good judgement and insight Mental Status: Alert and oriented to place, person, and time. Labs No results found for: "WBC", "HGB", "PLT", "NA", "K", "CREATININE" Imaging PET 08/07/[address] Chest 07/18/24 Patient Care Team: PCP: Emilie Wheatley MD Pulmonology: Angeline Lew, [employer] Disclaimer INFORMED CONSENT:The nature and purpose of the proposed treatment or procedure have been discussed.The risks and benefits of the proposed treatment or procedures have been reviewed. Alternatives have been reviewed in addition to the risks and benefits of not receiving treatments or undergoing procedures. Pursuant to this discussion, the patient agrees to undergo the proposed treatment or procedure. Captured images seen in this note from are not a substitute for a comprehensive interpretation of the entire data set as reflected by the interpreting physician with regard to radiology, echocardiography, and other diagnostic images. This note may have been dictated using [employer] Medical Practice Edition 2.6 and/or [employer] Voice Recognition Feature. The document was proofread, however unrecognized voice recognition 3rd grade teacher errors may be present. documented in this [facility]05-15-2025 Nurse Note* Perioperative Nursing Note - Ashlyn Riggs RN - 09/20/2024 10:28 AM EDT Pt declined Xanax at this time. [id number] Anesthesiology Preoperative evaluation and management note* Anesthesia Preprocedure Evaluation - Jorge Ortiz DO - 09/19/2024 11:38 AM EDT Patient: Fozia Breen Procedure Information Date/Time: 09/20/24 1200 Procedures: THORACOSCOPY WITH WEDGE RESECTION LEFT LOWER LOBE (Left: Chest) POSSIBLE LOBECTOMY, LUNG, OPEN (Left: Chest) Location: [facility] Operating Room Surgeons: Lee Ann Perez MD Relevant Problems No relevant active problems Past Medical History: Past Medical History: No date: Allergies No date: Anemia Comment: with No date: Arthritis No date: Carpal tunnel syndrome, right No date: Chronic kidney disease No date: COPD (chronic obstructive pulmonary disease) (HCC) No date: Disease of thyroid gland No date: Pulmonary nodule Past Surgical History: Past Surgical History: No date: CARPAL TUNNEL RELEASE; Right No date: COLONOSCOPY No date: DILATION AND CURETTAGE OF UTERUS No date: EXPLORATORY LAPAROTOMY 1996: HYSTERECTOMY Social History: TOBACCO: reports that she quit smoking about 2 weeks ago. Her smoking use included cigarettes. She started smoking about 42 years ago. She has a 42.3 pack-year smoking history. She has never used smokeless tobacco. ETOH: reports current alcohol use. Social History Substance and Sexual Activity Drug Use Never Family History: Family History[1] Screening: Hysterectomy Clinical information reviewed: Allergies Physical Exam Airway Mallampati: III Cardiovascular Dental (+) chipped Pulmonary Abdominal Anesthesia Plan patient is NPO appropriate Any family history or previous problems with anesthesia no ASA 3 general Any family history or previous problems with anesthesia no Anesthesia Tan Considerations PAT phone call T&S, H&H, EKG ordered DOS ERAS Type General ERAS, no Celebrex d/t NSAID allergy RACHEL Screening No echocardiogram results found for the past 14 days No results found for this or any previous visit. Equipment Requests: Additional Equipment Requests [1] Family History Problem Relation Name Age of Onset Hypertension Mother Diabetes Mother Asthma Mother Ulcerative colitis Mother Arthritis Mother Coronary artery disease Father Heart attack Father Hypertension Father Heart disease Father Coronary artery disease Brother Heart disease Brother Hypertension Brother Heart attack Brother [employer] Work Phone: [phone] 281-392505-14-2025 NotePatient: Fozia Breen Procedure Information Date/Time: 09/20/24 1200 Procedures: THORACOSCOPY WITH WEDGE RESECTION LEFT LOWER LOBE (Left: Chest) POSSIBLE LOBECTOMY, LUNG, OPEN (Left: Chest) Location: [facility] Operating Room Surgeons: Lee Ann Perez MD Relevant Problems No relevant active problems Past Medical History: Past Medical History: No date: Allergies No date: Anemia Comment: with No date: Arthritis No date: Carpal tunnel syndrome, right No date: Chronic kidney disease No date: COPD (chronic obstructive pulmonary disease) (HCC) No date: Disease of thyroid gland No date: Pulmonary nodule Past Surgical History: Past Surgical History: No date: CARPAL TUNNEL RELEASE; Right No date: COLONOSCOPY No date: DILATION AND CURETTAGE OF UTERUS No date: EXPLORATORY LAPAROTOMY 1995: HYSTERECTOMY Social History: TOBACCO: reports that she quit smoking about 2 weeks ago. Her smoking use included cigarettes. She started smoking about 42 years ago. She has a 42.3 pack-year smoking history. She has never used smokeless tobacco. ETOH: reports current alcohol use. Social History Substance and Sexual Activity Drug Use Never Family History: Family History[1] Screening: Hysterectomy Clinical information reviewed: Allergies Physical Exam Airway Mallampati: III Cardiovascular Dental (+) chipped Pulmonary Abdominal Anesthesia Plan patient is NPO appropriate Any family history or previous problems with anesthesia no ASA 3 general Any family history or previous problems with anesthesia no Anesthesia Tan Considerations PAT phone call T&S, H&H, EKG ordered DOS ERAS Type General ERAS, no Celebrex d/t NSAID allergy RACHEL Screening No echocardiogram results found for the past 14 days No results found for this or any previous visit. Equipment Requests: Additional Equipment Requests [1] Family History Problem Relation Name Age of Onset Hypertension Mother Diabetes Mother Asthma Mother Ulcerative colitis Mother Arthritis Mother Coronary artery disease Father Heart attack Father Hypertension Father Heart disease Father Coronary artery disease Brother Heart disease Brother Hypertension Brother Heart attack [facility]04-27-2025 Telephone encounter Note* Telephone Encounter - ALICE Yancey CNP - 09/02/2024 1:06 PM EDT Surg proc orders placed. ALICE Grimm CNP 09/02/24 [employer] Phone: [phone] 285-942304-27-2025 Miscellaneous Notes* Telephone Encounter - ALICE Yancey CNP - 09/02/2024 1:06 PM EDT Surg proc orders placed. ALICE Grimm CNP 09/02/24 * Telephone Encounter - Iris Ventura MA - 08/30/2024 9:55 AM EDT Prep for Procedure Order Request: 08/30/24 Surgeon: Perez Surgery/Procedure: Left Lower Lobe Wedge Resection, possible Lobectomy Diagnosis: Lung Nodule Plan Admit: yes PAT Appointment: yes Date if yes: phone call 09/13/24 @ 10:30 am Date of Surgery/Procedure: 09/20/24 noon Medications: [] Hold as directed by CTS: [x] Per PAT protocol Medication needed prescribed: [x] None [] Nasal ointment and mouth rinse [] Other: documented in this [facility]04-25-2025 Procedure notey [facility]monary Services/Neurology [address] [place] [address] MR#: [id number] Acct: [id number] Name: FOZIA BREEN Rep #:[id number] : 1960 63 From: Sihvam Pryor DO Referring Dr: Angeline Lew [employer] Status: REG CLI Location: PSN Date: Sex: F C PSN 6 Minute Walk Test 6 Minute Walk Test 6 Minute Walk Test: 6 Minute Walk Test PSN:6-Minute Walk Test Start: 08/30/24 11:32 Freq: Status: Active Protocol: RESP.6MINW Document 08/30/24 11:32 SFENTON (Rec: 08/30/24 11:34 SFENTON [id number]) 6 Minute Walk Test Date Performed 08/30/24 Time Performed 11:20 Height 5 ft 1 in Weight: 178 lb Weight in Pounds 178.[address]: Angeline Lew [employer] Assistive device None used: Pre-test Oxygen Delivery Room Air Method Pulse Ox (%) 95 Pulse Rate (60-100 94 beats/min) Dyspnea Jd Scale ( 0 0-10) Exertion Jd Scale 6 (6-20) 1st minute Oxygen Delivery Room Air Method Pulse Ox (%) 94 Pulse Rate (60-100 109 H beats/min) 2nd minute Oxygen Delivery Room Air Method Pulse Ox (%) 94 Pulse Rate (60-100 109 H beats/min) 3rd minute Oxygen Delivery Room Air Method Pulse Ox (%) 94 Pulse Rate (60-100 113 H beats/min) 4th minute Oxygen Delivery Room Air Method Pulse Ox (%) 95 Pulse Rate (60-100 122 H beats/min) 5th minute Oxygen Delivery Room Air Method Pulse Ox (%) 96 Pulse Rate (60-100 122 H beats/min) 6th minute Oxygen Delivery Room Air Method Pulse Ox (%) 95 Pulse Rate (60-100 120 H beats/min) Dyspnea Jd Scale ( 1 0-10) Exertion Jd Scale 12 (6-20) Post-test Oxygen Delivery Room Air Method Pulse Ox (%) 96 Pulse Rate (60-100 90 beats/min) Full Laps Walked 15 Partial Lap, Number 52 of Tiles Walked Total Distance 937 Walked (ft) Interpretation Interpretation: The patient ambulated 937 feet over the course of 6 minutes beginning on room air without assistivedevices. Pretesting oxygen saturation was noted to be 95%on room air. With ambulation, the nelida oxygen saturation was 94%. There was no significant exertional oxygen desaturation. Recommendations Recommendations: There is no indication for the use of supplemental oxygen at this time. 08/31/24 1220 O> Date _ Shivam Pryor DO CC: ~ Date Dictated: 08/31/24 1220 Date Transcribed: 08/31/241219 Transition Advisor: Dr. Shivam Pryor DO Signed [facility]04-24-2025 NotePrep for Procedure Order Request: 08/30/24 Surgeon: Perez Surgery/Procedure: Left Lower Lobe Wedge Resection, possible Lobectomy Diagnosis: Lung Nodule Plan Admit: yes PAT Appointment: yes Date if yes: phone call 09/13/24 @ 10:30 am Date of Surgery/Procedure: 09/20/24 noon Medications: [] Hold as directed by CTS: [x] Per PAT protocol Medication needed prescribed: [x] None [] Nasal ointment and mouth rinse [] Other: [facility]04-24-2025 Telephone encounter Note* Telephone Encounter - Iris Ventura MA - 08/30/2024 9:55 AM EDT Prep for Procedure Order Request: 08/30/24 Surgeon: Perez Surgery/Procedure: Left Lower Lobe Wedge Resection, possible Lobectomy Diagnosis: Lung Nodule Plan Admit: yes PAT Appointment: yes Date if yes: phone call 09/13/24 @ 10:30 am Date of Surgery/Procedure: 09/20/24 noon Medications: [] Hold as directed by CTS: [x] Per PAT protocol Medication needed prescribed: [x] None [] Nasal ointment and mouth rinse [] Other: [id number] History of Present illness Narrative* Lee Ann Perez MD - 08/28/2024 11:00 AM EDT Images from the original note were not included. [facility] CARDIOVASCULAR & THORACIC SURGERY [address] [facility] [address] Dept: [phone] Dept Loc: [phone] Visit type: New Reason for Visit: PET positive, growing lung nodule left lower lobe. Assessment and plan PET positive, growing lung nodule left lower lobe in a 63 YO current smoker with a long standing history of rheumatoid arthritis. This lesion was originally detected and measured 5mm (we have no record of that imaging). Presently, the lesion in the LLL measures 10mm and is PET-avid. The treatment options that we discussed included continued observation, needle biopsy, or surgical excisional biopsy via wedge resection with frozen section and lower lobectomy if malignancy was identified. The risks benefits and alternatives to all of these options were discussed and patient wishes to proceed with the most definitive excisional biopsy and lobectomy at the same's setting if this should proved to be malignant. This is a reasonable strategy and we will schedule elective surgery. In the meantime, she has already started Chantix, plans on completely stopping smoking on Tuesday ofs week. I encouraged smoking cessation and we will schedule surgery in approximately 3 weeks to allow her lungs a bit of a chance to recover with good smoking cessation prior to proceeding with surgery. This should minimize the risk for perioperative pneumonia. Her pulmonary function tests and 6-minute exercise test will be done later this week to assure thather pulmonary functions are acceptable. There is no sign of distant metastatic disease. History of Present Illness Fozia Breen is a 63 y.o. female referred by LIZANDRO Ocasio for enlarging, PET positive left lower lobe lung nodule. Per note, pt had lung screening CT chest completed on 07/18/24 which demonstrated a nodular density in the peripheral lateral aspect of the left lower lobe that had increased in size to 10.3 mm, previously 5 mm. PET was then completed on 08/07/24 which demonstrated single focus of abnormal hypermetabolism seen in a 1 cm nodule in the left lower lobe peripherally. 6 min walk test scheduled for 08/30/24. PFT's are scheduled on 08/31/24. Pt is a current smoker. Pt is here now for an evaluation. Past Medical History Past Medical History: Diagnosis Date Allergies Arthritis Carpal tunnel syndrome, right Past Surgical History Past Surgical History: Procedure Laterality Date HYSTERECTOMY 1995 Family History Family History Problem Relation Name Age of Onset Hypertension Mother Diabetes Mother Asthma Mother Ulcerative colitis Mother Arthritis Mother Coronary artery disease Father Heart attack Father Hypertension Father Heart disease Father Coronary artery disease Brother Heart disease Brother Hypertension Brother Heart attack Brother Social History Social History Tobacco Use Smoking status: Every Day Current packs/day: 1.00 Average packs/day: 1 pack/day for 42.3 years (42.3 ttl pk-yrs) Types: Cigarettes Start date: 1982 Smokeless tobacco: Never Substance Use Topics Alcohol use: Yes Comment: holidays/special occasions only Drug use: Never Allergies Allergies Allergen Reactions Penicillins Hives Codeine Hives Erythromycin Hives Medications Current Outpatient Medications: acetaminophen (Tylenol) 500 MG tablet, Take 1,000 mg by mouth 2 times daily., Disp: , Rfl: cetirizine (ZyrTEC) 10 MG tablet, Take 10 mg by mouth daily., Disp: , Rfl: DULoxetine (Cymbalta) [address] capsule, Take 60 mg by mouth daily. Do not crush or chew., Disp: , Rfl: Ergocalciferol (VITAMIN D2 PO), Take 1 tablet by mouth daily., Disp: , Rfl: folic acid (Folvite) 1 MG tablet, Take 2 mg by mouth daily., Disp: , Rfl: leucovorin (Wellcovorin) 15 MG tablet, Take 15 mg by mouth 1 (one) time per week. Take with a full glass of water., Disp: , Rfl: methotrexate 2.5 MG tablet, Take 20 mg by mouth 1 (one) time per week. Follow directions carefully,and ask to explain any part you do not understand. Take exactly as directed., Disp: , Rfl: predniSONE (Deltasone) 5 MG tablet, Take 5 mg by mouth Daily as needed., Disp: , Rfl: varenicline (Chantix) 0.5 MG tablet, Take 0.5 mg by mouth 2 times daily. Take with full glass of water., Disp: , Rfl: Review of Systems Review of Systems Constitutional: Negative. HENT: Negative. Eyes: Negative. Respiratory: Negative. Cardiovascular: Negative. Gastrointestinal: Negative. Endocrine: Negative. Genitourinary: Negative. Musculoskeletal: Negative. Skin: Negative. Allergic/Immunologic: Negative. Neurological: Negative. Hematological: Negative. Psychiatric/Behavioral: Negative. Physical Exam Vitals: BP (!) 136/90 (BP Location: Left arm, Patient Position: Sitting, BP Cuff Size: Large adult) Pulse98 Ht 1.549 m (5' 1") Wt 80.7 kg (178 lb) BMI 33.63 kg/m Constitutional: General: Not in acute distress. Appearance: Normal appearance. Not toxic-appearing. Ear, nose, mouth: Bilateral external ear and nose normal. Nose: Nose normal. Mouth: Appearance normal, no bleeding, moist mucus membranes Eyes: General: No scleral icterus. No discharge from bilateral eyes Extraocular Movements: Extraocular movements intact. Pupils equal and reactive bilaterally Cardiovascular: Heart: Regular rhythm. Normal heart sounds. Pulmonary: Effort: Pulmonary effort is normal. No respiratory distress. Breath sounds: Normal breath sounds. No wheezing. Chest wall: No tenderness. Abdominal: Appearance: Not distended Palpations: There is no abdominal tenderness, no guarding. Musculoskeletal: Bilateral upper and lower extremities: Normal range of motion, no deformity Head: Normocephalic and atraumatic. Neck: Normal range of motion and neck supple. No muscular tenderness. Skin: General: Skin is warm and dry. Coloration: Skin is not jaundiced. Neurological: General: No focal deficit present. Cranial Nerves: No obvious cranial nerve deficit. Psychiatric: Mood and Affect: Mood normal. Thought Content: Thought content normal. Patient has good judgement and insight Mental Status: Alert and oriented to place, person, and time. Labs No results found for: "WBC", "HGB", "PLT", "NA", "K", "CREATININE" Imaging PET 08/07/[address] Chest 07/18/24 Patient Care Team: PCP: Emilie Wheatley MD Pulmonology: Angeline Lew RUSTIC FENCE [employer]ILDER-C Disclaimer INFORMED CONSENT:The nature and purpose of the proposed treatment or procedure have been discussed.The risks and benefits of the proposed treatment or procedures have been reviewed. Alternatives have been reviewed in addition to the risks and benefits of not receiving treatments or undergoing procedures. Pursuant to this discussion, the patient agrees to undergo the proposed treatment or procedure. Captured images seen in this note from are not a substitute for a comprehensive interpretation of the entire data set as reflected by the interpreting physician with regard to radiology, echocardiography, and other diagnostic images. This note may have been dictated using [employer] Practice Edition 2.6 and/or Non[employer] Voice Recognition Feature. The document was proofread, however unrecognized voice recognition 3rd grade teacher errors may be present. documented in this [facility]04-22-2025 [facility] CARDIOVASCULAR & THORACIC SURGERY [address] [facility] [address] Dept: [phone] Dept Loc: [phone] Visit type: New Reason for Visit: PET positive, growing lung nodule left lower lobe. Assessment and plan PET positive, growing lung nodule left lower lobe in a 63 YO current smoker with a long standing history of rheumatoid arthritis. This lesion was originally detected and measured 5mm (we have no record of that imaging). Presently, the lesion in the LLL measures 10mm and is PET-avid. The treatment options that we discussed included continued observation, needle biopsy, or surgical excisional biopsy via wedge resection with frozen section and lower lobectomy if malignancy was identified. The risks benefits and alternatives to all of these options were discussed and patient wishes to proceed with the most definitive excisional biopsy and lobectomy at the same's setting if this should proved to be malignant. This is a reasonable strategy and we will schedule elective surgery. In the meantime, she has already started Chantix, plans on completely stopping smoking on Tuesday of this week. I encouraged smoking cessation and we will schedule surgery in approximately 3 weeks to allow her lungs a bit of a chance to recover with good smoking cessation prior to proceeding with surgery. This should minimize the risk for perioperative pneumonia. Her pulmonary function tests and 6-minute exercise test will be done later this week to assure that her pulmonary functions are acceptable. There is no sign of distant metastatic disease. History of Present Illness Fozia Breen is a 63 y.o. female referred by LIZANDRO Ocasio for enlarging, PET positive left lower lobe lung nodule. Per note, pt had lung screening CT chest completed on 07/18/24 which demonstrated a nodular density in the peripheral lateral aspect of the left lower lobe that had increased in size to 10.3 mm, previously 5 mm. PET was then completed on 08/07/24 which demonstrated single focus of abnormal hypermetabolism seen in a 1 cm nodule in the left lower lobe peripherally. 6 min walk test scheduled for 08/30/24. PFT's are scheduled on 08/31/24. Pt is a current smoker. Pt is here now for an evaluation. Past Medical History Past Medical History: Diagnosis Date Allergies Arthritis Carpal tunnel syndrome, right Past Surgical History Past Surgical History: Procedure Laterality Date HYSTERECTOMY 1995 Family History Family History Problem Relation Name Age of Onset Hypertension Mother Diabetes Mother Asthma Mother Ulcerative colitis Mother Arthritis Mother Coronary artery disease Father Heart attack Father Hypertension Father Heart disease Father Coronary artery disease Brother Heart disease Brother Hypertension Brother Heart attack Brother Social History Social History Tobacco Use Smoking status: Every Day Current packs/day: 1.00 Average packs/day: 1 pack/day for 42.3 years (42.3 ttl pk-yrs) Types: Cigarettes Start date: 1982 Smokeless tobacco: Never Substance Use Topics Alcohol use: Yes Comment: holidays/special occasions only Drug use: Never Allergies Allergies Allergen Reactions Penicillins Hives Codeine Hives Erythromycin Hives Medications Current Outpatient Medications: acetaminophen (Tylenol) 500 MG tablet, Take 1,000 mg by mouth 2 times daily., Disp: , Rfl: cetirizine (ZyrTEC) 10 MG tablet, Take 10 mg by mouth daily., Disp: , Rfl: DULoxetine (Cymbalta) [address] capsule, Take 60 mg by mouth daily. Do not crush or chew., Disp: , Rfl: Ergocalciferol (VITAMIN D2 PO), Take 1 tablet by mouth daily., Disp: , Rfl: folic acid (Folvite) 1 MG tablet, Take 2 mg by mouth daily., Disp: , Rfl: leucovorin (Wellcovorin) 15 MG tablet, Take 15 mg by mouth 1 (one) time per week. Take with a full glass of water., Disp: , Rfl: methotrexate 2.5 MG tablet, Take 20 mg by mouth 1 (one) time per week. Follow directions carefully, and ask to explain any part you do not understand. Take exactly as directed., Disp: , Rfl: predniSONE (Deltasone) 5 MG tablet, Take 5 mg by mouth Daily as needed., Disp: , Rfl: varenicline (Chantix) 0.5 MG tablet, Take 0.5 mg by mouth 2 times daily. Take with full glass of water., Disp: , Rfl: Review of Systems Review of Systems Constitutional: Negative. HENT: Negative. Eyes: Negative. Respiratory: Negative. Cardiovascular: Negative. Gastrointestinal: Negative. Endocrine: Negative. Genitourinary: Negative. Musculoskeletal: Negative. Skin: Negative. Allergic/Immunologic: Negative. Neurological: Negative. Hematological: Negative. Psychiatric/Behavioral: Negative. Physical Exam Vitals: BP (!) 136/90 (BP Location: Left arm, Patient Position: Sitting, BP Cuff Size: Large adult) Pulse 98 Ht 1.549 m (5' 1") Wt 80.7 kg (178 lb) BMI 33 (more content not included)...[facility]04-11-2025 Evaluation note* Diagnosis Onset Date Resolution Status Admit Date Abnormal PET of left lung acute August 17, 2024 7:38am Shortness of breath acute August 17, 2024 7:38am Smoking greater than 20 pack years chronic August 17, 2024 7:38am Adenocarcinoma of left lung acute November 07, 2024 9:09am Stage 1 mild chronic obstruc tive pulmonary disease by [employer] for acute November 07, 2024 9 :09am Status post pneumonectomy acute November 07, 2024 9:09am Nicotine abuse chronic November 07, 2024 9:09am [facility] Work Phone: 1(679) 341-220603-24-2025 Evaluation note* Diagnosis Onset Date Resolution Status Admit Date Lung nodule acute July 30, 025 9:06am Allergies chronic July 30 9:06am Smoking greater than 20 pack years chronic July 30, 2024 9:06am [facility] Work Phone: 1(244) 965-822403-24-2025 Evaluation note* Diagnosis Onset Date Resolution Status Admit Date Lung nodule acute July 30, 2 025 9:06am Allergies chronic July 30 9:06am Smoking greater than 20 pack years chronic July 30, 2024 9:06am Abnormal PET of left lung acute August 17, 2024 7:38am Shortness of breath acute August 17, 2024 7:38am Smoking greater than 20 pack years chronic August 17, 2024 7:38am [facility] Work Phone: 1(333) 892-694703-24-2025 Evaluation note* Diagnosis Onset Date Resolution Status Admit Date Lung nodule acute July 30, 2 025 9:06am Allergies chronic July 30 9:06am Smoking greater than 20 pack years chronic July 30, 2024 9:06am Abnormal PET of left lung acute August 17, 2024 7:38am Shortness of breath acute August 17, 2024 7:38am Smoking greater than 20 pack years chronic August 17, 2024 7:38am Adenocarcinoma of left lung acute November 07, 2024 9:09am Stage 1 mild chronic obstruc tive pulmonary disease by [employer] for acute November 07, 2024 9 :09am Status post pneumonectomy acute November 07, 2024 9:09am [facility] Work Phone: 1(988) 909-534303-12-2025 Radiology Diagnostic study note [facility] Imaging Services [address] [place] [id number] Lung Screening MR#: [id number] Acct: [id number] Name: FOZIA BREEN Rep #: [id number] : 1960 F 63 From: Wade Laura MD PCP: Dr. Emilie Wheatley MD Status: [facility] Study:Low Dose CT Lung Screening Date of Exam : 07/18/24 Exam# [id number] Ordering Dr: Viktoria Rubi sa DO PROCEDURE: LOW DOSE CT LUNG SCREENING REASON FOR EXAM: LUNG CANCER SCREENING Follow-up for left lower lobe lung nodule. Current smoker. 1-1/2 packs of cigarettes per day for 40years. TECHNIQUE: Low Dose CT Lung Screening without contrast COMPARISON: Comparison is made with prior study dated March 30 2022. FINDINGS: PULMONARY NODULES: (Only nodules >6mm are reported) Nodules described below are on series 1 unless otherwise specified. Pulmonary Nodules: The previously seen nodular density in the peripheral lateral aspect of the leftlower lobe has increased in size. It presently measures 10.3 mm. Further follow-up with biopsy and/or PET scan recommended. Stable linear scarringin the lingular segment of the left upper lobe. Hardware:None Lymph Nodes:No mediastinal hilar or axillary lymphadenopathy. Heart and Vasculature:Normal heart size. No pericardial effusion.Thoracic aorta and pulmonary arteries have normal contours; noncontrast technique limits evaluation. Coronary Artery Calcifications: Absent Lungs and Airways: Mild emphysematous changes are present. Pleura:No pleural effusion. No pneumothorax. Upper Abdomen:Visualized portions of the upper abdominal viscera are unremarkable. Bones:Degenerative changes of the thoracic spine. CT/Low Dose CT Lung Screening IMPRESSION: 1. BASED ON THE ACR LUNG RADS FOR THE MOST SUSPICIOUS NODULE (IF ANY) DESCRIBEDIN THIS REPORT, THE OVERALL LUNG RADS SCORE IS 4B. 4B-VERY SUSPICIOUS. RECOMMEND DIAGNOSTIC CHEST CT; PET/CT MAY BE CONSIDERED IF >=8MM SOLID NODULE OR SOLID COMPONENT; TISSUE SAMPLING; AND/OR REFERRAL FOR CLINICAL EVALUATION. IF AIRWAY NODULE THEN REFER FOR CLINICAL EVALUATION. 2. SMOKING CESSATION COUNSELING IS RECOMMENDED IF THE PATIENT IS STILL SMOKING. 3. OTHER SIGNIFICANT FINDINGSNone. One or more dose reduction techniques were used (e.g., Automated exposure control, adjustment of the mA and/or kV according to patient size, use of iterative reconstruction technique). The following information is provided for reference:Lung-RADS 2022 Assessment Categories. Additional information involving Lung-RADS is available at www.acr.org. 0-INCOMPLETE 1-NEGATIVE:No nodules or definitely benign nodules. Complete, central, popcorn,or centric ring calcifications OR fat containing 2-BENIGN APPEARANCE (based on imaging features or indolent behavior). Juxtapleural nodule: < 10mm AND solid; smooth margins; oval, entiform, or triangular shape Solid nodule: <6mm at baseline or new< 4mm Part solid Nodule: < 6mm total mean diameter at baseline Nonsolid nodule:(GGN) < 30mm OR >=30mm stable or slowly growing Airway nodule, subsegmental at baseline, new, or stable Category 3 nodule stableor decreased in size at 6-month follow-up CT or Category 3 or 4A nodules that resolve on follow-up OR category 4B findings proven to be benign following diagnotic work up. 3 - Probably Benign (Based on imaging features or behavior) Solid Nodule: >= 6 to <8mm at baseline OR new 4 to <6mm Part-solid nodule: >= 6mm toal mean diam. with solid component <6mm at baseline OR new < 6mm total mean diam. Non-solid nodule: GGN >= 30mm at baseline or new Atypical pulmonary cyst: Growing cystic component (mean diam.) of thick-walled cyst Category 4A nodule stable or decreased in size at 3-month follow-up CT (excl.airway). 4A - Suspicious Solid nodule: >=8 to < 15mm at baseline OR growing < 8mm OR new 6 to < 8mm Part solid nodule: >= 6mm total mean diam. w/ solid component >=6mm to < 8mm at baseline OR new or growing < 4mm solid component Airway nodule, segmental or more proximal at baseline or new Atypical pulmonary cyst: Thick-walled OR multilocular at baseline OR becomes multilocular 4B - Very Suspicious Airway nodule, segmental or more proximal, and stable or growing Solid nodule: >= 15mm at baseline OR new or growing >= 8mm Part solid nodule: Solid component >= 8mm OR new or growing >= 4mm solid component Atypical pulmonary cyst: Thick-walled with growing wall thickness/nodularity OR Growing multilocular (mean diam.) OR Multilocular with increased loculation or new/increased opacity Slow-growing solid or part solid nodule w/ growth over multiple screening exams 4X - Very Suspicious Category 3 or 4 nodules with additional features that increase the suspicion forlung cancer. S - Clinically Significant or potentially significant findings (non-lung cancer) Reading Location: [place] [address] CC: Dr. Emilie Wheatley MD; Dr. Chasity Rubi DO ~ Transition Advisor: Signed [facility]08-21-2022 NoteHNO ID: [id number] Author: Tamara Graff APRN.BEEF GRINDER Service: ? Author Type: Nurse Practitioner Type: Progress Notes Filed: 12/27/2021 9:25 AM Note Text: Subjective Fever Associated symptoms include congestion and headaches. Pertinent negatives include no diarrhea, no vomiting, no sore throat and no cough. Fozia A Breen is a 61 year old female who presents with onset of symptoms 8 hours ago. Fever (>100.4F): YES Chills: No Cough: No Shortness of breath: No Difficulty breathing: No Fatigue: YES Muscle aches:YES Headache: YES New loss of smell or taste: No Sore throat: No Nasal congestion: YES Rhinorrhea: YES Nausea: YES Vomiting: No Diarrhea: No Recent sick contacts: No Contact with anyone confirmed or probable COVID-19 infection in the last 14 days? No Family with confirmed COVID-19 infection? No She took Dramamine for nausea. Review of Systems Constitutional: Positive for fever and malaise/fatigue. HENT: Positive for congestion. Negative for ear pain and sore throat. Respiratory: Negative for cough and shortness of breath. Cardiovascular: Negative. Gastrointestinal: Positive for nausea. Negative for abdominal pain, diarrhea and vomiting. Musculoskeletal: Positive for myalgias. Neurological: Positive for headaches. BP 130/82 Pulse (!) 127 Temp (!) 38.8 ?C (101.8 ?F) Resp 20 Wt 77.7 kg (171 lb 3.2 oz) SpO2 95% No past medical history on file. No past surgical history on file. ALLERGIES Erythromycin and Penicillins MEDICATIONS aspirin/acetaminophen/caffeine (EXCEDRIN EXTRA STRENGTH ORAL) Take by mouth. cetirizine HCl (ZYRTEC ORAL) Take by mouth. MELATONIN ORAL Take by mouth. ibuprofen (MOTRIN ORAL) Take by mouth. No family history on file. Social History Tobacco Use Smoking status: Every Day Types: Cigarettes Smokeless tobacco: Never Objective Physical Exam Vitals and nursing note reviewed. Constitutional: Appearance: Normal appearance. She is obese. HENT: Right Ear: Tympanic membrane, ear canal and external ear normal. Left Ear: Tympanic membrane, ear canal and external ear normal. Nose: Congestion present. Mouth/Throat: Pharynx: Uvula midline. No oropharyngeal exudate or posterior oropharyngeal erythema. Cardiovascular: Rate and Rhythm: Normal rate and regular rhythm. Heart sounds: Normal heart sounds. Pulmonary: Effort: Pulmonary effort is normal. No respiratory distress. Breath sounds: Normal breath sounds. No wheezing or rales. Musculoskeletal: Cervical back: Neck supple. Lymphadenopathy: Cervical: No cervical adenopathy. Skin: General: Skin is warm and dry. Findings: No erythema or rash. Neurological: Mental Status: She is alert. ASSESSMENT/PLAN: 1. Suspected COVID-19 virus infection - ICD9: V01.79, ICD10: Z20.822 - COVID WITH FLUA+B, ROUTINE - Follow-up with your PCP in 3-5 days if symptoms have not improved or sooner if symptoms worsen - Discussed red flags and need for immediate medical evaluation if any occur. - Discussed supportive care treatment with fluids, rest and analgesia. - Discussed expected course of illness Tamara Graff APRN.[facility] History of Present illness Narrative* Tamara Graff APRN.FLAVIA - 12/27/2021 9:17 AM EDT Subjective Fever Associated symptoms include congestion and headaches. Pertinent negatives include no diarrhea, no vomiting, no sore throat and no cough. Fozia Breen is a 61 year old female who presents with onset of symptoms 8 hours ago. Fever (>100.4F): YES Chills: No Cough: No Shortness of breath: No Difficulty breathing: No Fatigue: YES Muscle aches:YES Headache: YES New loss of smell or taste: No Sore throat: No Nasal congestion: YES Rhinorrhea: YES Nausea: YES Vomiting: No Diarrhea: No Recent sick contacts: No Contact with anyone confirmed or probable COVID-19 infection in the last 14 days? No Family with confirmed COVID-19 infection? No She took Dramamine for nausea. Review of Systems Constitutional: Positive for fever and malaise/fatigue. HENT: Positive for congestion. Negative for ear pain and sore throat. Respiratory: Negative for cough and shortness of breath. Cardiovascular: Negative. Gastrointestinal: Positive for nausea. Negative for abdominal pain, diarrhea and vomiting. Musculoskeletal: Positive for myalgias. Neurological: Positive for headaches. BP 130/82 Pulse (!) 127 Temp (!) 38.8 C (101.8 F) Resp 20 Wt 77.7 kg (171 lb 3.2 oz) [id number]% No past medical history on file. No past surgical history on file. ALLERGIES Erythromycin and Penicillins MEDICATIONS aspirin/acetaminophen/caffeine (EXCEDRIN EXTRA STRENGTH ORAL) Take by mouth. cetirizine HCl (ZYRTEC ORAL) Take by mouth. MELATONIN ORAL Take by mouth. ibuprofen (MOTRIN ORAL) Take by mouth. No family history on file. Social History Tobacco Use Smoking status: Every Day Types: Cigarettes Smokeless tobacco: Never Objective Physical Exam Vitals and nursing note reviewed. Constitutional: Appearance: Normal appearance. She is obese. HENT: Right Ear: Tympanic membrane, ear canal and external ear normal. Left Ear: Tympanic membrane, ear canal and external ear normal. Nose: Congestion present. Mouth/Throat: Pharynx: Uvula midline. No oropharyngeal exudate or posterior oropharyngeal erythema. Cardiovascular: Rate and Rhythm: Normal rate and regular rhythm. Heart sounds: Normal heart sounds. Pulmonary: Effort: Pulmonary effort is normal. No respiratory distress. Breath sounds: Normal breath sounds. No wheezing or rales. Musculoskeletal: Cervical back: Neck supple. Lymphadenopathy: Cervical: No cervical adenopathy. Skin: General: Skin is warm and dry. Findings: No erythema or rash. Neurological: Mental Status: She is alert. ASSESSMENT/PLAN: 1. Suspected COVID-19 virus infection - ICD9: V01.79, ICD10: Z20.822 - COVID WITH FLUA+B, ROUTINE - Follow-up with your PCP in 3-5 days if symptoms have not improved or sooner if symptoms worsen - Discussed red flags and need for immediate medical evaluation if any occur. - Discussed supportive care treatment with fluids, rest and analgesia. - Discussed expected course of illness Tamara Graff APRN.CNP [facility] Instructions* Patient Instructions* Tamara Graff APRN.CNP - 12/27/2021 9:17 AM EDT ASSESSMENT/PLAN: 1. Suspected COVID-19 virus infection - ICD9: V01.79, ICD10: Z20.822 - COVID WITH FLUA+B, ROUTINE - Follow-up with your PCP in 3-5 days if symptoms have not improved or sooner if symptoms worsen - Discussed red flags and need for immediate medical evaluation if any occur. - Discussed supportive care treatment with fluids, rest and analgesia. - Discussed expected course of illness Tamara Graff APRN.BEEF GRINDER Beginning Home Isolation Isolation is used to separate people infected with SARS-CoV-2, the virus that causes COVID-19, frompeople who are not infected. People who are in isolation should stay home until it s safe for them to be around others. In the home, anyone sick or infected should separate themselves from others by staying in a specific sick room or area and using a separate bathroom (if available). Isolation or Quarantine: What's the difference? Quarantine keeps someone who might have been exposed to the virus away from others. Isolation keeps someone who is infected with the virus away from others, even in their home. Who needs to isolate People who have COVID-19 People who have symptoms of COVID-19 and are able to recover at home People who have no symptoms (are asymptomatic) but have tested positive for infection with SARS-CoV-2 Steps to take Stay home except to get medical care Monitor your symptoms. Stay in a separate room from other household members, if possible Use a separate bathroom, if possible Avoid contact with other members of the household and pets Don t share personal household items, like cups, towels, and utensils Wear a mask when around other people, if you are able to When to seek emergency medical attention Look for emergency warning signs* for COVID-19. If someone is showing any of these signs, seek emergency medical care immediately: Trouble breathing Persistent pain or pressure in the chest New confusion Inability to wake or stay awake Bluish lips or face *This list is not all possible symptoms. Please call your medical provider for any other symptoms that are severe or concerning to you. Call 911 or call ahead to your local emergency facility: Notify the fagoting machine operator that you are seeking care for someone who has or may have COVID-19. Ending Home Isolation - When you can be around others after you had or likely had COVID-19 When you can be around others after you had or likely had COVID-19 If You Test Positive for COVID-19 (Isolation) Everyone, regardless of vaccination status: Stay home for 5 days. Note: Day 0 is your first day of symptoms or the date of collection of a positive viral test if no symptoms. Day 1 is the first full day after symptoms developed or test specimen was collected. If you have no symptoms or your symptoms are resolving after 5 days, you can leave your house. Continue to wear a mask around others for 5 additional days. If you have a fever, continue to stay home until your fever resolves, even if it is longer than 5 days. If You Were Exposed to Someone with COVID-19 (Quarantine) If you: 1. Have been boosted OR 2. Completed the primary series of Pfizer or Moderna vaccine within the last 6 months OR 3. Completed the primary series of J&J vaccine within the last 2 months THEN: 1. Wear a mask around others for 10 days. 2. Test on day 5, if possible. If you develop symptoms get a test and stay home. If You Were Exposed to Someone with COVID-19 (Quarantine) If you: 1. Completed the primary series of Pfizer or Moderna vaccine over 6 months ago and are not boosted OR 2. Completed the primary series of J&J over 2 months ago and are not boosted OR 3. Are unvaccinated THEN: 1. Stay home for 5 days. After that continue to wear a mask around others for 5 additional days. 2. If you can't quarantine you must wear a mask for 10 days. 3. Test on day 5 if possible. If you develop symptoms get a test and stay home. I had COVID-19 or I tested positive for COVID-19 and I have a weakened immune system If you have a weakened immune system (immunocompromised) due to a health condition or medication, you might need to stay home and isolate longer than 10 days. Talk to your healthcare provider for more information. Your doctor may work with an infectious disease expert at your local health department to determinewhen you can be around others. How to Manage Common Symptoms Associated with COVID for Adults Fever- Fever is a temperature over 100.4 F and can occur when the body is fighting an infection. Tohelp treat a fever: Drink plenty of fluids and stay well hydrated. Eat small amounts of easy to digest food. Rest. Your body needs rest to recover, but getting up and moving around the house frequently is a good idea. You should try to continue doing your normal daily activities (bathing, toileting, grooming, cooking), though you will probably feel tired, and need to rest often. Avoid any heavy activity or exercise, as this will increase your body temperature. Dress in light clothing and stay covered in a light sheet. Keep the room temperature cool. Take a slightly warm (not cold or cool) bath, or apply damp washcloths to the forehead and wrists. Cough- Cough is a common symptom associated with COVID and can be bothersome. To help treat a cough: Stay well hydrated. Try warm water or tea with lemon and/or honey to help soothe the cough. Use a humidifier to add moisture to the air. Try a product with menthol, like a cough drop or a rub for your chest such as Vicks, which can helpreduce cough. Try cough drops. Avoid smoking and other strong odors or perfumes. Try breathing exercises to keep your lungs open and clear. Take a big deep breath through your noseand hold for 5 seconds before slowly releasing. Repeat frequently, while you are awake. Congestion- Runny nose or nasal congestion can occur with COVID. Treatment can help relieve symptoms: Try OTC nasal saline spray, or nasal saline rinse to relieve mucus congestion. Nasal strips can help keep nasal passages open, to increase airflow. Elevating your head with an extra pillow in bed can help reduce congestion. Using a humidifier can increase moisture in the air, and make breathing easier. Sore Throat- Another common symptom with COVID, can be managed at home by: Stay well hydrated. Gargle with salt water - mix teaspoon salt with 1 cup of warm water and gargle. This helps to loosen mucus in the back of the throat and may reduce discomfort. Try ice chips, popsicles or lozenges to soothe the throat. Nausea/Vomiting/Diarrhea- These are common symptoms, and staying hydrated is most important. If you are nauseous or vomiting, start with small sips of water every 10-15 minutes and increase astolerated. You can try sucking an ice cube too. If tolerating, you can try pedialyte or Gatorade, or flat sprite or shanna-marisa. Start slowly and increase as you are able to. Instead of meals, try smaller, more frequent snacks. Try eating bland foods like crackers, toast, rice, and applesauce. Avoid spicy, greasy or fried foods and dairy containing foods. Even if you aren't feeling hungry due to lack of smell or taste, it is important to try to take in some food when you are able. After drinking and eating, rest in an upright position for up to two hours as needed to help decrease nauseous feelings. Try closing your eyes, avoid moving and watching TV. Avoid strong odors that can make you feel more nauseated. When to seek emergency medical attention Look for emergency warning signs for COVID-19. If having any of these symptoms, seek emergency medical care immediately: Trouble breathing Persistent pain or pressure in the chest New confusion Inability to wake or stay awake Bluish lips or face *This list is not all possible symptoms. Please call your medical provider for any other symptoms that are severe or concerning to you. [facility] Diagnosis Suspected COVID-19 virus infection- Primary documented in this [facility] noteNo assessment information availableWTogus VA Medical Center Work Phone: Evaluation note* Diagnosis Pulmonary nodule- Primary Other diseases of lung, not elsewhere classified Rheumatoid arthritis, involving unspecified site, unspecified whether rheumatoid factor present (HCC) documented in this encounter [facility] note* Diagnosis Lung nodule- Primary Other diseases of lung, not elsewhere classified Solitary pulmonary nodule documented in this encounter [facility] note* Diagnosis Lung nodule- Primary Other diseases of lung, not elsewhere classified Lung nodule Other diseases of lung, not elsewhere classified Solitary pulmonary nodule documented in this encounter [facility] note* Diagnosis Adenocarcinoma (HCC)- Primary Other malignant neoplasm of unspecified site Pulmonary nodule Other diseases of lung, not elsewhere classified documented in this encounter [facility] for referral (narrative)No reason for referral information availableWTogus VA Medical Center Work Phone: Reason for visit Narrative* Auth/Cert (Routine) Specialty Diagnoses / Procedures Referred By Contac t Referred To Contact Diagnoses Solitary pulmonary nodule Procedures IA THORACOSCOPY W/DX WEDGE RESEXN ANATO LUNG RESEXN IA RMVL LUNG OTHER THAN PNEUMONECTOMY 1 LOBE LOBECT THORACOSCOPY WITH WEDGE RESECTION LEFT LOWER LOBE POSSIBLE LOBECTOMY, LUNG, OPEN Lee Ann Perez MD [address] [facility] [address] [place] [address] Phone: tel: fax: Referral ID Status Reason Start Date Expiration Date Visits Re quested Visits Authorized [id number] 08/29/2024 1 1 [facility] Health Concerns Infection Onset Date Last Indicated Resolved Time COVID-19 Rule-Out 12/27/2021 12/27/2021 Summary Purpose Family History No Family History Records Found Relationship Condition Age at Onset Recorded Date/T patricia father Coronary artery disease Unknown Cardiac disease Unknown Myocardial infarction Unknown Hypertension Unknown brother Coronary artery disease Unknown mother Hypertension Unknown Diabetes mellitus Unknown Asthma Unknown Colitis Unknown Arthritis Unknown Advance Directives No Advanced Directives Records FoundDocuments on File Type Date Recorded Patient 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 Creative Director 09/20/2024 10:09 AM Date Activated Date Inactivated Comments 09/20/2024 10:06 AM 09/25/2024 12:38 PM Chief Complaint and Reason for Visit Chief Complaint SCREENING LUNG Chief Complaint LABS AND XRAY- PAIN- COPY PCP Chief Complaint Admit Date PAIN- COPY PCP April 03, 2024 9:14am FIBRO. RX HERE April 10, 2024 8 :00am COPY PCP June 06, 2024 9 :01am LUNG CANCER, SCREENING July 18, 2024 7:11am ABNORMAL BI July 25, 2024 8:3 7am Chief Complaint Admit Date FIBRO. RX HERE April 10, 2024 8 :00am COPY PCP June 06, 2024 9 :01am LUNG CANCER, SCREENING July 18, 2024 7:11am ABNORMAL BI July 25, 2024 8:3 7am ABN LDCT July 30, 2024 9:0 6am Reason for Visit Admit Date Lung nodule July 30, 2024 9:0 6am Allergies July 30, 2024 9:0 6am Smoking greater than 20 pack years July 30, 2024 9:06am Chief Complaint Admit Date COPY PCP June 06, 2024 9 :01am LUNG CANCER, SCREENING July 18, 2024 7:11am ABNORMAL BI July 25, 2024 8:3 7am ABN LDCT July 30, 2024 9:0 6am PULM NODULE August 07, 2024 7:10 am Chief Complaint Admit Date COPY PCP June 06, 2024 9 :01am LUNG CANCER, SCREENING July 18, 2024 7:11am ABNORMAL BI July 25, 2024 8:3 7am ABN LDCT July 30, 2024 9:0 6am PULM NODULE August 07, 2024 7:10 am 2 wk fu August 17, 2024 7:3 8am R06.02 - Shortness of breath August 30, 2024 11:08am R06.02 - Shortness of breath August 31, 2024 8:04am R06.02 - Shortness of breath August 31, 2024 12:20pm Reason for Visit Admit Date Lung nodule July 30, 2024 9:0 6am Allergies July 30, 2024 9:0 6am Smoking greater than 20 pack years July 30, 2024 9:06am Abnormal PET of left lung August 17 7:38am Shortness of breath August 17, 2024 7:3 8am Smoking greater than 20 pack years August 17, 2024 7:38am Chief Complaint Admit Date LUNG CANCER, SCREENING July 18, 2024 7:11am ABNORMAL BI July 25, 2024 8:3 7am ABN LDCT July 30, 2024 9:0 6am PULM NODULE August 07, 2024 7:10 am 2 wk fu August 17, 2024 7:3 8am R06.02 - Shortness of breath August 30, 2024 11:08am R06.02 - Shortness of breath August 31, 2024 8:04am R06.02 - Shortness of breath August 31, 2024 12:20pm 4 wk fu November 07, 2024 9:09a m Reason for Visit Admit Date Lung nodule July 30, 2024 9:0 6am Allergies July 30, 2024 9:0 6am Smoking greater than 20 pack years July 30, 2024 9:06am Abnormal PET of left lung August 17 7:38am Shortness of breath August 17, 2024 7:3 8am Smoking greater than 20 pack years August 17, 2024 7:38am Adenocarcinoma of left lung November 07 9:09am Stage 1 mild chronic obstruc tive pulmonary disease by [employer] for November 07, 2024 9:09am Status post pneumonectomy November 07, 2024 9:09am Chief Complaint Admit Date PULM NODULE August 07, 2024 7:10 am 2 wk fu August 17, 2024 7:3 8am R06.02 - Shortness of breath August 30, 2024 11:08am R06.02 - Shortness of breath August 31, 2024 8:04am R06.02 - Shortness of breath August 31, 2024 12:20pm 4 wk fu November 07, 2024 9:09a m PAIN- COPY PCP November 27, 2024 8:03 am Reason for Visit Admit Date Abnormal PET of left lung August 17 7:38am Shortness of breath August 17, 2024 7:3 8am Smoking greater than 20 pack years August 17, 2024 7:38am Adenocarcinoma of left lung November 07 9:09am Stage 1 mild chronic obstruc tive pulmonary disease by [employer] for November 07, 2024 9:09am Status post pneumonectomy November 07, 2024 9:09am Nicotine abuse November 07, 2024 9:09a m Additional Source Comments Source Comments (unrecognize d section and content) In the event this informatio n is protected by the Federal Confidentiality of Alcohol and Drug Abuse Patient Records regulations: The Federal rules restrict any use of the information to criminally investigate or prosecute any alcohol or drug abuse patient.[facility] Reason for Visit (unrecogniz ed section and content) Reason Comments Fever Nausea, FUCHS, body ach es x 7 hours Reason Comments New Patient Reason Onset Date Comments Surgery Scheduling 08/30/2024 Reason Onset Date Comments Procedure 10/11/2024 Reason Comments Post-op INFORMATION SOURCE (unrecogn ized section and content) DATE CREATED AUTHOR 12/31/2021 [facility] DATE CREATED AUTHOR AUTHOR'S ORGANIZ ATION 10/13/2024 [facility] DATE CREATED AUTHOR AUTHOR'S ORGANIZ ATION 01/24/2025 [facility] Goals (unrecognized section and content) Goals may be documented in a n alternate sectionGoals may be documented in an alternate sectionGoals may be documented in an alternate sectionGoals may be documented in an alternate sectionGoals may be documented in an alternate sectionGoals may be documented in an alternate sectionGoals may be documented in an alternate sectionGoals may be documented in an alternate sectionGoals may be documented in an alternate sectionGoals may be documented in an alternate section Care Teams (unrecognized sec tion and content) Team Status: Active Member Role Status Dates Dr. Chasity Rubi DO Family Provider Active Dr. Chasity Rubi DO Primary Care Provider Active Team Status: Inactive Member Role Status Dates Dr. Chasity Rubi DO Primary Care Provider Active Dr. Emilie Wheatley MD Attending Provider, Referring P marge Active Team Status: Inactive Member Role Status Dates Dr. Chasity Rubi DO Primary Care Provider Active Dr. Maria A Carranza MD Attending Provider, Referring Provider Active Team Status: Active Member Role Status Dates Dr. Emilie Wheatley MD Primary Care Provider Active Team Status: Inactive Member Role Status Dates Dr. Chasity Rubi DO Primary Care Provider Active Start: April 03, 2024 End: April 03, 2024 Dr. Maria A Carranza MD Attending Provider Active Start: April 03, 2024 End: April 03, 2024 Dr. Maria A Carranza MD Referring Provider Active Start: April 03, 2024 End: April 03, 2024 Team Status: Inactive Member Role Status Dates Dr. Chasity Rubi DO Primary Care Provider Active Start: April 10, 2024 End: April 10, 2024 Dr. Maria A Carranza MD Attending Provider Active Start: April 10, 2024 End: April 10, 2024 Dr. Maria A Carranza MD Referring Provider Active Start: April 10, 2024 End: April 10, 2024 Team Status: Inactive Member Role Status Dates Dr. Chasity Rubi DO Primary Care Provider Active Start: June 06, 2024 End: June 06, 2024 Dr. Maria A Carranza MD Attending Provider Active Start: June 06, 2024 End: June 06, 2024 Dr. Maria A Carranza MD Referring Provider Active Start: June 06, 2024 End: June 06, 2024 Team Status: Inactive Member Role Status Dates Dr. Chasity Rubi DO Attending Provider Active St art: July 18, 2024 End: July 18, 2024 Dr. Chasity Rubi DO Referring Provider Active St art: July 18, 2024 End: July 18, 2024 Dr. Emilie Wheatley MD Primary Care Provider Active Start: July 18, 2024 End: July 18, 2024 Team Status: Active Member Role Status Dates Dr. Emilie Wheatley MD Primary Care Provider Active Start: July 25, 2024 Dr. Chasity Rubi DO Attending Provider Active St art: July 25, 2024 Dr. Chasity Rubi DO Referring Provider Active St art: July 25, 2024 Team Status: Inactive Member Role Status Dates Dr. Emilie Wheatley MD Primary Care Provider Active Start: July 25, 2024 End: July 25, 2024 Dr. Chasity Rubi DO Attending Provider Active St art: July 25, 2024 End: July 25, 2024 Dr. Chasity Rubi DO Referring Provider Active St art: July 25, 2024 End: July 25, 2024 Team Status: Inactive Member Role Status Dates Dr. Emilie Wheatley MD Primary Care Provider Active Start: July 30, 2024 End: July 30, 2024 Dr. Emilie Wheatley MD Referring Provider Active Start: July 30, 2024 End: July 30, 2024 Angeline Lew RUSTIC FENCE BUILDER, RUSTIC FENCE BUILDER-C Attending Provider Active Start: July 30, 2024 End: July 30, 2024 Team Status: Inactive Member Role Status Dates Dr. Emilie Wheatley MD Primary Care Provider Active Start: August 07, 2024 End: August 07, 2024 Angeline Lew RUSTIC FENCE BUILDER, RUSTIC FENCE BUILDER-C Attending Provider Active Start: August 07, 2024 End: August 07, 2024 Angeline Lew RUSTIC FENCE BUILDER, RUSTIC FENCE BUILDER-C Referring Provider Active Start: August 07, 2024 End: August 07, 2024 Make Up Operator Relationship Specialty Start Date End Date Emilie Wheatley MD [address] [facility] [place] [id number] PCP - General Family Medicine 08/23/24 Make Up Operator Relationship Specialty Start Date End Date Emilie Wheatley MD [address] [place] [phone] PCP - General Family Medicine 08/23/24 Make Up Operator Relationship Specialty Start Date End Date Emilie Wheatley MD [address] [place] [phone] PCP - General Family Medicine 08/23/24 Team Status: Inactive Member Role Status Dates Dr. Emilie Wheatley MD Primary Care Provider Active Start: August 17, 2024 End: August 17, 2024 Dr. Emilie Wheatley MD Referring Provider Active Start: August 17, 2024 End: August 17, 2024 Angeline Lew RUSTIC FENCE BUILDER, RUSTIC FENCE BUILDER-C Attending Provider Active Start: August 17, 2024 End: August 17, 2024 Team Status: Inactive Member Role Status Dates Dr. Emilie Wheatley MD Primary Care Provider Active Start: August 30, 2024 End: August 30, 2024 Angeline Lew NP, RUSTIC FENCE BUILDER-C Attending Provider Active Start: August 30, 2024 End: August 30, 2024 Angeline Lew RUSTIC FENCE BUILDER, RUSTIC FENCE BUILDER-C Referring Provider Active Start: August 30, 2024 End: August 30, 2024 Team Status: Active Member Role Status Dates Dr. Emilie Wheatley MD Primary Care Provider Active Start: August 31, 2024 Angeline Lew RUSTIC FENCE BUILDER, RUSTIC FENCE BUILDER-C Attending Provider Active Start: August 31, 2024 Angeline Lew RUSTIC FENCE BUILDER, RUSTIC FENCE BUILDER-C Referring Provider Active Start: August 31, 2024 Team Status: Active Member Role Status Dates Dr. Emilie Wheatley MD Primary Care Provider Active Start: August 31, 2024 Angeline Lew RUSTIC FENCE BUILDER, RUSTIC FENCE BUILDER-C Referring Provider Active Start: August 31, 2024 Angeline Lew RUSTIC FENCE BUILDER, RUSTIC FENCE BUILDER-C Other Provider Active Start: August 31, 2024 Dr. Shivam Pryor DO Attending Provider Active S tart: August 31, 2024 Make Up Operator Relationship Specialty Start Date End Date Emilie Wheatley MD [address] [place] [phone] PCP - General Family Medicine 08/23/24 Make Up Operator Relationship Specialty Start Date End Date Emilie Wheatley MD [address] [place] [phone] PCP - General Family Medicine 08/23/24 Make Up Operator Relationship Specialty Start Date End Date Emilie Wheatley MD [address] [place] [phone] PCP - General Family Medicine 08/23/24 Team Status: Active Member Role/Relationship Status Dates Dr. Emilie Wheatley MD Primary Care Provider Active Team Status: Inactive Member Role/Relationship Status Dates Dr. Chasity Rubi DO Attending Provider Active St art: July 18, 2024 End: July 18, 2024 Dr. Chasity Rubi DO Referring Provider Active St art: July 18, 2024 End: July 18, 2024 Dr. Emilie Wheatley MD Primary Care Provider Active Start: July 18, 2024 End: July 18, 2024 Team Status: Inactive Member Role/Relationship Status Dates Dr. Emilie Wheatley MD Primary Care Provider Active Start: July 25, 2024 End: July 25, 2024 Dr. Chasity Rubi DO Attending Provider Active St art: July 25, 2024 End: July 25, 2024 Dr. Chasity Rubi DO Referring Provider Active St art: July 25, 2024 End: July 25, 2024 Team Status: Inactive Member Role/Relationship Status Dates Dr. Emilie Wheatley MD Primary Care Provider Active Start: July 30, 2024 End: July 30, 2024 Dr. Emilie Wheatley MD Referring Provider Active Start: July 30, 2024 End: July 30, 2024 Angeline Lew RUSTIC FENCE BUILDER, RUSTIC FENCE BUILDER-C Attending Provider Active Start: July 30, 2024 End: July 30, 2024 Team Status: Inactive Member Role/Relationship Status Dates Dr. Emilie Wheatley MD Primary Care Provider Active Start: August 07, 2024 End: August 07, 2024 Angeline Lew RUSTIC FENCE BUILDER, RUSTIC FENCE BUILDER-C Attending Provider Active Start: August 07, 2024 End: August 07, 2024 Angeline Lew RUSTIC FENCE BUILDER, RUSTIC FENCE BUILDER-C Referring Provider Active Start: August 07, 2024 End: August 07, 2024 Team Status: Inactive Member Role/Relationship Status Dates Dr. Emilie Wheatley MD Primary Care Provider Active Start: August 17, 2024 End: August 17, 2024 Dr. Emilie Wheatley MD Referring Provider Active Start: August 17, 2024 End: August 17, 2024 Angeline Lew RUSTIC FENCE BUILDER, RUSTIC FENCE BUILDER-C Attending Provider Active Start: August 17, 2024 End: August 17, 2024 Team Status: Inactive Member Role/Relationship Status Dates Dr. Emilie Wheatley MD Primary Care Provider Active Start: August 30, 2024 End: August 30, 2024 Angeline Lew RUSTIC FENCE BUILDER, RUSTIC FENCE BUILDER-C Attending Provider Active Start: August 30, 2024 End: August 30, 2024 Angeline Lew RUSTIC FENCE BUILDER, RUSTIC FENCE BUILDER-C Referring Provider Active Start: August 30, 2024 End: August 30, 2024 Team Status: Inactive Member Role/Relationship Status Dates Dr. Emilie Wheatley MD Primary Care Provider Active Start: August 31, 2024 End: August 31, 2024 Angeline Lew RUSTIC FENCE BUILDER, RUSTIC FENCE BUILDER-C Attending Provider Active Start: August 31, 2024 End: August 31, 2024 Angeline Lew RUSTIC FENCE BUILDER, RUSTIC FENCE BUILDER-C Referring Provider Active Start: August 31, 2024 End: August 31, 2024 Team Status: Active Member Role/Relationship Status Dates Dr. Emilie Wheatley MD Primary Care Provider Active Start: August 31, 2024 Angeline Lew RUSTIC FENCE BUILDER, RUSTIC FENCE BUILDER-C Referring Provider Active Start: August 31, 2024 Angeline Lew RUSTIC FENCE BUILDER, RUSTIC FENCE BUILDER-C Other Provider Active Start: August 31, 2024 Dr. Shivam Pryro DO Attending Provider Active S tart: August 31, 2024 Team Status: Inactive Member Role/Relationship Status Dates Dr. Emilie Wheatley MD Primary Care Provider Active Start: November 07, 2024 End: November 07, 2024 Dr. Emilie Wheatley MD Referring Provider Active Start: November 07, 2024 End: November 07, 2024 Angeline Lew RUSTIC FENCE BUILDER, RUSTIC FENCE BUILDER-C Attending Provider Active Start: November 07, 2024 End: November 07, 2024 Team Status: Inactive Member Role/Relationship Status Dates Dr. Emilie Wheatley MD Primary Care Provider Active Start: August 07, 2024 End: August 07, 2024 Angeline Lew RUSTIC FENCE BUILDER, RUSTIC FENCE BUILDER-C Attending Provider Active Start: August 07, 2024 End: August 07, 2024 Angeline Lew RUSTIC FENCE BUILDER, RUSTIC FENCE BUILDER-C Referring Provider Active Start: August 07, 2024 End: August 07, 2024 Team Status: Inactive Member Role/Relationship Status Dates Dr. Emilie Wheatley MD Primary Care Provider Active Start: August 17, 2024 End: August 17, 2024 Dr. Emilie Wheatley MD Referring Provider Active Start: August 17, 2024 End: August 17, 2024 Angeline Lew RUSTIC FENCE BUILDER, RUSTIC FENCE BUILDER-C Attending Provider Active Start: August 17, 2024 End: August 17, 2024 Team Status: Inactive Member Role/Relationship Status Dates Dr. Emilie Wheatley MD Primary Care Provider Active Start: August 30, 2024 End: August 30, 2024 Angeline Lew RUSTIC FENCE BUILDER, RUSTIC FENCE BUILDER-C Attending Provider Active Start: August 30, 2024 End: August 30, 2024 Angeline Lew RUSTIC FENCE BUILDER, RUSTIC FENCE BUILDER-C Referring Provider Active Start: August 30, 2024 End: August 30, 2024 Team Status: Inactive Member Role/Relationship Status Dates Dr. Emilie Wheatley MD Primary Care Provider Active Start: August 31, 2024 End: August 31, 2024 Angeline Lew RUSTIC FENCE BUILDER, RUSTIC FENCE BUILDER-C Attending Provider Active Start: August 31, 2024 End: August 31, 2024 Angeline Lew RUSTIC FENCE BUILDER, RUSTIC FENCE BUILDER-C Referring Provider Active Start: August 31, 2024 End: August 31, 2024 Team Status: Active Member Role/Relationship Status Dates Dr. Emilie Wheatley MD Primary Care Provider Active Start: August 31, 2024 Angeline Lew RUSTIC FENCE BUILDER, RUSTIC FENCE BUILDER-C Referring Provider Active Start: August 31, 2024 Angeline Lew RUSTIC FENCE BUILDER, RUSTIC FENCE BUILDER-C Other Provider Active Start: August 31, 2024 Dr. Shivam Pryor DO Attending Provider Active S tart: August 31, 2024 Team Status: Inactive Member Role/Relationship Status Dates Dr. Emilie Wheatley MD Primary Care Provider Active Start: November 07, 2024 End: November 07, 2024 Dr. Emilie Wheatley MD Referring Provider Active Start: November 07, 2024 End: November 07, 2024 Angeline Lew RUSTIC FENCE BUILDER, RUSTIC FENCE BUILDER-C Attending Provider Active Start: November 07, 2024 End: November 07, 2024 Team Status: Inactive Member Role/Relationship Status Dates Dr. Emilie Wheatley MD Primary Care Provider Active Start: November 27, 2024 End: November 27, 2024 Dr. Maria A Carranza MD Attending Provider Active Start: November 27, 2024 End: November 27, 2024 Dr. Maria A Carranza MD Referring Provider Active Start: November 27, 2024 End: November 27, 2024 Scheduled Active and Recently Administ ered Medications (unrecognized section and content) Medication Order 09/23/2024 09/24/2024 09/25/2024 cetirizine (ZyrTEC) tablet 10 mg 10 mg, Oral, Daily, First dose on Tue09/21/24 at 0900 0501 (Given - Provider: Ephraim Mendoza RN) 0603 (Given - Provider: Charu Pryor, TRESSA) 0514 (Given - Provider: Tesha Choi, TRESSA) DULoxetine (Cymbalta) DR capsule 60 mg 60 mg, Oral, Nightly, First dose on Tue09/20/24 at 2100, Phase II/On Unit, Do not crush or chew. 2034 (Given - Provider: Charu Pryor, RN) 2030 (Given - Provider: Tesha Choi, TRESSA) enoxaparin (Lovenox) syringe 40 mg 40 mg, SubCUTAneous, Every 24 hours, First dose on Tue09/21/24 at 0900, Phase II/On Unit, Indication of Use: Prophylaxis-DVT/PE, Indications: Prophylaxis of Venous Thromboembolism 0822 (Given - Provider: Odalys Parker RN) 0833 (Given - Provider: Patrick Tim RN) 0827 (Not Given - Provider: Patrick Tim RN - Reason: Patient/family refused) magnesium hydroxide (Milk of Magnesia) 400 MG/5ML suspension 30 mL (CANCELED) 30 mL, Oral, Daily, First dose on 09/23/24 at 0900, Phase II/On Unit, Follow dose with 8 oz of water. 0925 (Given - Provider: Odalys Parker RN) 0615 (Not Given - Provider: Charu Pryor RN - Reason: Patient/family refused) mupirocin (Bactroban) 2 % ointment 1 Application 1 Application, Nasal, 2 times daily, First dose on Ирина 09/20/24 at 2100, For 5 days, Phase II/On Unit, Indications: MRSA Nasal Decolonization 08 (Given - Provider: Odalys Parker RN)2143 (Not Given - Provider: Charu Pryor RN - Reason: Patient/family refused) 0836 (Not Given - Provider: Patrick Tim RN - Reason: Medication not available)2227 (Not Given - Provider: Tesha Choi RN - Reason: Medication not available) 0827 (Not Given - Provider: Patrick Tim RN - Reason: Medication not available) senna-docusate sodium (Senokot-S) 8.6-50 MG tablet 2 tablet 2 tablet, Oral, Daily, First dose (after last modification) on 09/23/24 at 0915, Phase II/On Unit 0925 (Given - Provider: Odalys Parker RN) 0832 (Given - Provider: Patrick Tim RN) 0828 (Not Given - Provider: Patrick Tim RN - Reason: Patient/family refused) sodium chloride 0.9% (NS) flush 5-40 mL 5-40 mL, IntraVENous, Every 12 hours scheduled (2 times per day), First dose on Ирина 09/20/24 at 2100, Phase II/On Unit, or Line Patency: Peripheral IV = 5 mL; Midline or Central Line = 10 mL/lumen. If following IV push medication, administer flush at same rate as the IV push. Flush volume is determined by type of infusion therapy being given. For non-viscous solutions use: Peripheral IV = 5 mL Midline or Central Line = 10 mL/lumen For viscous solutions (i.e. blood components, parenteral nutrition, contrast media, or after obtaining blood sample) use: Peripheral IV = 10 mL Midline or Central Line = 20 mL/lumen 08 (Given - Provider: Odalys Parker RN)2035 (Given - Provider: Charu Pryor RN) 0833 (Given - Provider: Patrick Tim RN)2031 (Given - Provider: Tesha Choi RN) 08 (Not Given - Provider: Patrick Tim RN - Reason: Other - Comment: being discontined) PRN Medication Order 09/23/2024 09/24/2024 09/25/2024 calcium carbonate (Tums) chewable tablet 1,000 mg 1,000 mg, Oral, 2 times daily PRN, indigestion, heartburn, Starting on Tue09/21/24 at 1025 diphenhydrAMINE (BENADryl) tablet/capsule 25 mg 25 mg, Oral, Every 8 hours PRN, itching, Starting on Tue09/21/24 at 1646 HYDROcodone-acetaminophe n ([place]) 5-325 MG per tablet 1 tablet(Linked Group 1) 1 tablet, Oral, Every 4 hours PRN, moderate pain (4-6), Starting on Tue09/21/24 at 1135, Maximum dose of acetaminophen is 4000 mg from all sources in 24 hours. 0238 (Given - Provider: Ephraim Mendoza RN)0822 (See Alternative - Provider: Odalys Parker RN)1638 (See Alternative - Provider: Agnes Gray RN)2034 (See Alternative - Provider: Charu Pryor RN) 0354 (Given - Provider: Charu Pryor RN)1239 (Given - Provider: Patrick Tim RN)2030 (See Alternative - Provider: Tesha Choi RN) 003 (Given - Provider: Tesha Choi RN)0836 (See Alternative - Provider: Patrick Tim RN) HYDROcodone-acetaminophe n ([place]) 5-325 MG per tablet 2 tablet(Linked Group 1) 2 tablet, Oral, Every 4 hours PRN, severe pain (7-10), moderate pain (4-6), Starting on Tue09/21/24 at 1135, Maximum dose of acetaminophen is 4000 mg from all sources in 24 hours. 0238 (See Alternative - Provider: Ephraim Mendoza RN)0822 (Given - Provider: Odalys Parker, TRESSA)1638 (Given - Provider: Agnes Gray, TRESSA)2035 (Given - Provider: Charu Pryor, RN) 0354 (See Alternative - Provider: Charu Pryor, RN)1239 (See Alternative - Provider: Patrick Tim, TRESSA)2030 (Given - Provider: Tesha Choi, TRESSA) 0031 (See Alternative - Provider: Tesha Choi, TRESSA)0836 (Given - Provider: Patrick Tim RN) HYDROmorphone (Dilaudid) injection 0.25 mg(Linked Group 2) 0.25 mg, IntraVENous, Every 4 hours PRN, moderate pain (4-6), Starting on Tue09/21/24 at 1040, If oral and IV narcotics ordered, use oral first and only use IV if oral is ineffective or cannot take oral. Do Not give oral and IV within 1 hour of each other unless specifically ordered. HYDROmorphone (Dilaudid) injection 0.5 mg(Linked Group 2) 0.5 mg, IntraVENous, Every 4 hours PRN, severe pain (7-10), Starting on Tue09/21/24 at 1040, If oral and IV narcotics ordered, use oral first and only use IV if oral is ineffective or cannot take oral. Do Not give oral and IV within 1 hour of each other unless specifically ordered. labetalol (Normodyne,Trandate) injection 10 mg 10 mg, IntraVENous, Every 4 hours PRN, high blood pressure, SBP > 160, hold for HR < 60, first line PRN, Starting on Tue09/21/24 at 0747 magnesium hydroxide (Milk of Magnesia) 400 MG/5ML suspension 30 mL 30 mL, Oral, Nightly PRN, constipation, Starting on 09/24/24 at 1330, Phase II/On Unit, Follow dose with 8 oz of water. methocarbamol (Robaxin) tablet 1,000 mg 1,000 mg, Oral, Every 8 hours PRN, muscle spasms, Starting on Tue09/22/24 at 1142 0822 (Given - Provider: Odalys Parker, TRESSA)1638 (Given - Provider: Agnes Gray, RN) 0354 (Given - Provider: Charu Pryor, TRESSA)1239 (Given - Provider: Patrick Tim, RN - Comment: only wanted 1 pill.)2036 (Given - Provider: Tesha Choi, RN) 0836 (Given - Provider: Patrick Tim, RN) naloxone (Narcan) injection 0.4 mg 0.4 mg, IntraVENous, Every 5 min PRN, opioid reversal, respiratory depression, Starting on Tue09/21/24 at 1143, +++ For RR <10, pinpoint pupils, over sedation for opioid reversal - MUST notify environmental manager provider immediately after first dose, may give IM or SQ if no IV access +++ ondansetron (Zofran) injection 4 mg(Linked Group 3) 4 mg, IntraVENous, Every 6 hours PRN, nausea, vomiting, Starting on Ирина 09/20/24 at 1758, Phase II/On Unit, 1st Line. Give IV if patient is unable to take orally. If inadequate response within 60 minutes, proceed to next-line agent or contact provider if no further options ordered. ondansetron ODT (Zofran-ODT) disintegrating tablet 4 mg(Linked Group 3) 4 mg, Oral, Every 8 hours PRN, nausea, vomiting, Starting on Ирина 09/20/24 at 1758, Phase II/On Unit, 1st Line. If inadequate response within 60 minutes, proceed to next-line agent or contact provider if no further options ordered. Patient should allow tablet to dissolve on tongue. Do not remove from blister pack until just before administering. polyethylene glycol (PEG) 3350 (Miralax) packet 17 g 17 g, Oral, 2 times daily PRN, constipation, Starting on 09/24/24 at 1330, Phase II/On Unit sodium chloride 0.9 % infusion 5-250 mL/hr, IntraVENous, PRN, if patient receiving piggyback infusions and maintenance fluids are not ordered OR KVO fluids to protect IV site / prevent frequent line interruptions/ long duration, Starting on Ирина 09/20/24 at 1758, Phase II/On Unit, For piggyback infusion, administer at same rate as piggyback for a total of 25 mL. Enter 25 mL into dose field and piggyback rate into rate field of order. If piggyback is infusing at a rate less than 100 mL/hr, enter 25 mL into dose field and 100 mL/hr into rate field of order. For KVO fluids, enter rate of 20 mL/hr or less into rate field of order. sodium chloride 0.9% (NS) flush 5-40 mL 5-40 mL, IntraVENous, PRN, line care, After every IV line use, Starting on Ирина 09/20/24 at 1758, Phase II/On Unit, or Line Patency: Peripheral IV = 5 mL; Midline or Central Line = 10 mL/lumen. If following IV push medication, administer flush at same rate as the IV push. Flush volume is determined by type of infusion therapy being given. For non-viscous solutions use: Peripheral IV = 5 mL Midline or Central Line = 10 mL/lumen For viscous solutions (i.e. blood components, parenteral nutrition, contrast media, or after obtaining blood sample) use: Peripheral IV = 10 mL Midline or Central Line = 20 mL/lumen Linked Groups Order Group 1: HYDROcodone-acetaminophen ([place]) 5-325 MG per tablet 1 tabletJump to med 1 tablet, Oral, Every 4 hours PRN, moderate pain (4-6), Starting on Tue09/21/24 at 1135, Maximum dose of acetaminophen is 4000 mg from all sources in 24 hours. Or HYDROcodone-acetaminophen ([place]) 5-325 MG per tablet 2 tabletJump to med 2 tablet, Oral, Every 4 hours PRN, severe pain (7-10), moderate pain (4-6), Starting on Tue09/21/24 at 1135, Maximum dose of acetaminophen is 4000 mg from all sources in 24 hours. Group 2: HYDROmorphone (Dilaudid) injection 0.25 mgJump to med 0.25 mg, IntraVENous, Every 4 hours PRN, moderate pain (4-6), Starting on Tue09/21/24 at 1040, If oral and IV narcotics ordered, use oral first and only use IV if oral is ineffective or cannot take oral. Do Not give oral and IV within 1 hour of each other unless specifically ordered. Or HYDROmorphone (Dilaudid) injection 0.5 mgJump to med 0.5 mg, IntraVENous, Every 4 hours PRN, severe pain (7-10), Starting on Tue09/21/24 at 1040, If oral and IV narcotics ordered, use oral first and only use IV if oral is ineffective or cannot take oral. Do Not give oral and IV within 1 hour of each other unless specifically ordered. Group 3: ondansetron ODT (Zofran-ODT) disintegrating tablet 4 mgJump to med 4 mg, Oral, Every 8 hours PRN, nausea, vomiting, Starting on Ирина 09/20/24 at 1758, Phase II/On Unit, 1st Line. If inadequate response within 60 minutes, proceed to next-line agent or contact provider if no further options ordered. Patient should allow tablet to dissolve on tongue. Do not remove from blister pack until just before administering. Or ondansetron (Zofran) injection 4 mgJump to med 4 mg, IntraVENous, Every 6 hours PRN, nausea, vomiting, Starting on Ирина 09/20/24 at 1758, Phase II/On Unit, 1st Line. Give IV if patient is unable to take orally. If inadequate response within 60 minutes, proceed to next-line agent or contact provider if no further options ordered. FOR RECORDS PERTAINING TO PATIENTS WHO ARE OR HAVE BEEN ENROLLED IN A CHEMICAL DEPENDENCY/SUBSTANCEABUSE PROGRAM, SOME INFORMATION MAY BE OMITTED. This clinical summary was aggregated from multiple sources. Caution should be exercised in using it in the provision of clinical care. This summary normalizes information from multiple sources, and as a consequence, information in this document may materially change the coding, format and clinical context of patient data. In addition, data may be omitted in some cases. CLINICAL DECISIONS SHOULD BE BASED ON THE PRIMARY CLINICAL RECORDS. [employer] [facility]. provides no warranty or guarantee of the accuracy or completeness of information in this document.
[2025-01-30 11:32] LABS: Cholesterol 184 mg/dL (<=200); Low Density Lipoprotein Calc. 103 mg/dL; Triglycerides 132 mg/dL; Very Low Density Lipoprotein 26 mg/dL (5-40); Vitamin D,25 Hydroxy 27.7 ng/mL (30-100); cholesterol:hdl ratio screen 3.38
== END | disposition home or self-care (01) ==
LOC: MTLAB 07:15
PROVIDERS: PCP Family Medicine; Referring Provider Family Medicine; Visit Provider Family Medicine
DX: M79.7 Fibromyalgia (principal); L40.50 Arthropathic psoriasis, unspecified; J44.9 Chronic obstructive pulmonary disease, unspecified; E03.9 Hypothyroidism, unspecified
CPT/HCPCS: 36415; 80061; 82306; 84443

== ENCOUNTER → 2025-02-06 | Outpatient (CLI) | payer OTHER, SELFPAY ==
[2025-02-08 09:08] LABS: Thyroglobulin, Serum Qt. 32.5 ng/mL (1.5-38.5)
== END | disposition home or self-care (01) ==
LOC: MTLAB 07:41
PROVIDERS: PCP Family Medicine; Referring Provider Family Medicine; Visit Provider Family Medicine
DX: E03.9 Hypothyroidism, unspecified (principal)
CPT/HCPCS: 36415; 84432; 86800

== ENCOUNTER → 2025-03-14 | Outpatient (CLI) | payer OTHER, SELFPAY ==
[2025-03-14 13:05] LABS: Hematocrit 40.6 % (37-47); Hemoglobin 13.0 g/dL (12.0-15.0); Immature Granulocytes Count 0.020 X10^3/uL (0.0-0.0); Mean Corp Hgb Conc 32.0 g/dL (32-36); Mean Corpuscular Volume 88.6 fL (81-99); Mean Platelet Vol. 12.2 fl (6.2-12.0); NRBC Flagged by Analyzer 0 % (0-5); Platelet Count 316 K/mm3 (150-450); RBC Distribution Width CV 13.9 % (11.6-14.6); RBC Distribution Width SD 44.7 fl (35.1-43.9); Red Blood Count 4.58 M/mm3 (4.2-5.4); White Blood Count 5.0 K/mm3 (4.4-11.0)
[2025-03-14 13:22] LABS: AST(SGOT) 22 U/L (<=31); Alanine Aminotransfer ALT/SGPT 26 U/L (<=34); Albumin, Serum 4.4 g/dL (3.4-4.8); Alkaline Phosphatase 123 U/L (35-104); Anion Gap 11 (5-15); BUN 10 mg/dL (4-19); BUN/Creat Ratio 13.1 RATIO (10-20); Calcium,Total 9.6 mg/dL (7.6-11.0); Carbon Dioxide 23.5 mmol/L (21.0-32.0); Chloride 104 mmol/L (98-108); Globulin 2.4 g/dL (2.2-4.2); Glucose 91 mg/dL (70-99); Potassium 4.0 mmol/L (3.3-5.1)
[2025-03-15 18:12] LABS: Thyroglobulin, Serum Qt. 21.0 ng/mL (1.5-38.5)
== END | disposition home or self-care (01) ==
PROVIDERS: PCP Family Medicine; Referring Provider Internal Medicine Rheumatology; Visit Provider Internal Medicine Rheumatology
DX: L40.59 Other psoriatic arthropathy (principal); Z79.899 Other long term (current) drug therapy; M79.7 Fibromyalgia; L40.8 Other psoriasis; E03.9 Hypothyroidism, unspecified
CPT/HCPCS: 36415; 80053; 84432; 85025; 86376; 86800

== ENCOUNTER → 2025-03-21 | Outpatient (CLI) | payer OTHER, SELFPAY | END | disposition home or self-care (01) | LOC: LAB.FUTURE 07:50 | PROVIDERS: PCP Family Medicine; Referring Provider Internal Medicine Rheumatology; Visit Provider Internal Medicine Rheumatology | DX: L40.59 Other psoriatic arthropathy (principal); Z79.899 Other long term (current) drug therapy ==

== ENCOUNTER → 2025-03-27 | Outpatient (CLI) | payer OTHER, SELFPAY | END | disposition home or self-care (01) | LOC: MTLAB 09:19 | PROVIDERS: PCP Family Medicine; Referring Provider Family Medicine; Visit Provider Family Medicine | DX: E03.9 Hypothyroidism, unspecified (principal) | CPT/HCPCS: 36415; 84439; 84443 ==

== ENCOUNTER → 2025-04-02 | Outpatient (CLI) | payer OTHER, SELFPAY ==
--- NOTE | 2025-04-02 06:58 | BD_ITS ---
PROCEDURE: DEXA BONE DENSITY STUDY 04/02/2025 REASON FOR EXAM: F, age 64 y/o . Postmenopausal. TECHNIQUE: Procedure Code: BDDBD Modality: DX Procedure: DEXA BONE DENSITY STUDY COMPARISON: None FINDINGS: BMD and T-SCORES Lumbar spine: 0.917 g/cm2, T-score -1.2 Levels: L1 through L4 Left femoral neck: 0.629 g/cm2, T-score -2.0 Left total hip: 0.825 g/cm2, T-score -1.0 Right femoral neck: 0.612 g/cm2, T-score -2.1 Right total hip: 0.837 g/cm2, T-score -0.9 The World Health Organization has defined the following categories based on bone density: Normal bone density: T-score equal to or greater than -1.0 Osteopenia: T-score between -1.0 and -2.5 Osteoporosis: T-score equal to or less than -2.5 FRAX (or Comparable) Fracture Risk Assessment: 10 Year Probability of Fracture: Major Osteoporotic Fracture: 16% Hip Fracture: 2.5% (Note: FRAX is not to be reported in setting of normal range bone density, osteoporosis on DEXA, known history of osteoporosis, prior osteoporotic hip or vertebral fracture, or for any patient undergoing pharmacological treatment for bone loss.) The National Osteoporosis Foundation (NOF) recommends pharmacological treatment for patients with a FRAX 10-year risk of 3% or higher for a hip fracture, or 20% or higher for a major osteoporotic fracture, to prevent osteoporosis and reduce fracture risk. The patient does meet the pharmacological treatment recommendations for prevention of osteoporosis. BD/Dexa Bone Density Study IMPRESSION: OSTEOPENIA. Recommend follow-up as clinically warranted. Reading Location: [id number]
--- OUTSIDE RECORDS SUMMARY | 2025-04-02 07:00 | XMS RPT_ITS | CCD ---
Author Organization [facility] Care Team Providers Care Gaming Floor Supervisor Name Role Phone Unavailable Primary Care Provider Unavailemmett e Greyson GARCIA, Dr. Gaspar Primary Care Provider Tere PETTY, Dr. Saha Attending Provider Tere PETTY, Dr. Saha Referring Provider Dr. Chasity Rubi DO Attending Provider Greyson GARCIA, Dr. Gaspar Referring Provider Dr. Emilie Wheatley MD Primary Care Provider Dr. Chasity Rubi DO Primary Care Provider Dr. Maria A Carranza MD Attending Provider Tere PETTY, Dr. Saha Referring Provider Corry PETTY, Dr. Phan Referring Provider Vipin MURPHY-C, Angeline Attending Provider Dr. Chasity Rubi DO Primary Care Provider Tere PETTY, Dr. Saha Attending Provider Tere PETTY, Dr. Saha Referring Provider Vipin LINING BASTER-C, Angeline Referring Provider Emilie Wheatley MD Primary Care Provider Vipin LINING BASTER-C, Angeline Other Provider [phone] Dr. Shivam Pryor DO Attending Provider Corry PETTY, Dr. Phan Primary Care Provider Vipin LINING BASTER-C, Angeline Attending Provider Corry PETTY, Dr. Phan Referring Provider [phone] Tere PETTY, Dr. Saha Attending Provider Tere PETTY, Dr. Saha Referring Provider Corry PETTY, Dr. Phan Primary Care Physician Corry PETTY, Dr. Phan Referring Provider [phone] Lew LINING BASTER-C, Angeline Attending Physician Tere PETTY, Dr. Saha Attending Physician Corry PETTY, Dr. Phan Attending Physician PEREZ, LEE ANN A Attending Unavailable LEW, ANGELINE Referring Unavailable MIEDEL, EMILIE Primary Care Unavailable LALA GONZALES Attending Unavailable MIEDEL, EMILIE Primary Care Unavailable PEREZ, LEE ANN A Attending Unavailable MIEDEL, EMILIE Primary Care Unavailable PEREZ, LEE ANN A Admitting Unavailable PEREZ, LEE ANN A Attending Unavailable MIEDEL, EMILIE Primary Care Unavailable Miedel, Emilie Primary Care Unavailable Malys, Chasity Referring Unavailable Malys, Chasity Attending Unavailable Miedel, Emilie Primary Care Unavailable BrownShivam Attending Unavailable Lew LINING BASTER, Angeline Referring Unavailable BrownShivam Attending Unavailable Lew LINING BASTER, Angeline Consulting Unavailable Lew LINING BASTER, Angeline Referring Unavailable Miedel, Emilie Primary Care Unavailable Miedel, Emilie Primary Care Unavailable Lew LINING BASTER, Angeline Referring Unavailable Lew LINING BASTER, Angeline Attending Unavailable Maria A Carranza Attending Unavailable Maria A Carranza Referring Unavailable Miedel, Emilie Primary Care Unavailable Miedel, Emilie Primary Care Unavailable Lew LINING BASTER, Angeline Referring Unavailable Lew LINING BASTER, Angeline Attending Unavailable Lew LINING BASTER, Angeline Referring Unavailable Lew LINING BASTER, Angeline Attending Unavailable Miedel, Emilie Primary Care Unavailable Lew LINING BASTER, Angeline Attending Unavailable Miedel, Emilie Primary Care Unavailable Malys, Chasity Referring Unavailable Malys, Chasity Attending Unavailable Miedel, Emilie Referring Unavailable Miedel, Emilie Attending Unavailable Miedel, Emilie Primary Care Unavailable Miedel, Emilie Referring Unavailable Miedel, Emilie Attending Unavailable Miedel, Emilie Primary Care Unavailable Miedel, Emilie Primary Care Unavailable Miedel, Emilie Referring Unavailable Lew LINING BASTER, Angeline Attending Unavailable Miedel, Emilie Referring Unavailable Miedel, Emilie Primary Care Unavailable Lew LINING BASTER, Angeline Attending Unavailable Miedel, Emilie Referring Unavailable Miedel, Emilie Primary Care Unavailable Lew LINING BASTER, Angeline Attending Unavailable Malys, Chasity Primary Care Unavailable Vellanki, Maria A Attending Unavailable Vellanki, Maria A Referring Unavailable Malys, Chasity Primary Care Unavailable Vellanki, Maria A Attending Unavailable Vellanki, Maria A Referring Unavailable Miedel, Emilie Primary Care Unavailable Vellanki, Maria A Attending Unavailable Vellanki, Maria A Referring Unavailable Vellanki, Maria A Attending Unavailable Vellanki, Maria A Referring Unavailable Miedel, Emilie Primary Care Unavailable Vellanki, Maria A Attending Unavailable Vellanki, Maria A Referring Unavailable Malys, Chasity Primary Care Unavailable Miedel, Emilie Referring Unavailable Miedel, Emilie Attending Unavailable Miedel, Emilie Primary Care Unavailable Malys, Chasity Primary Care Unavailable Vellanki, Maria A Attending Unavailable Vellanki, Maria A Referring Unavailable Allergies Allergy Classification Reported Allergen(s) Allergy Type Date of Onset Reaction(s) Facility (17 sources) Erythromycin Drug Allergy 2 Intolerance, [facility] (1 source) Penicillins Drug Allergy [address] [facility] (16 sources) Codeine Drug Allergy 5 [facility] (7 sources) Penicillins Allergy to substance 5 [facility] (9 sources) Penicillins Drug Allergy 2 [facility] (6 sources) Non-steroidal anti-inflammator y agent Propensity to adverse reactions 5 [facility] (6 sources) pineapple allergenic extract Drug Allergy 5 Itching [facility] (6 sources) vanilla lagun[place] allergenic extract Drug Allergy 5 Hives, Itching [facility] (6 sources) Wound Dressing Adhesive Propensity to adverse reactions 5 [facility] (1 source) Codeine Drug Allergy 5 [facility] (1 source) Erythromycin Drug Allergy 5 [facility] (1 source) Penicillins Drug allergy (disorder) 5 [facility] Medications Current Medications Medication Drug Class(es) [...] hours as needed for pain HYDROcodone-acetami nophen (Henderson) 5-325 MG tablet Indications: Lung nodule Take 1 tablet by mouth every 4 hours as needed for moderate pain (4-6) for up to 5 days. 20 tablet 09/25/2024 09/30/2024 Active Start: 09-21-2024 End: 09-25-2024 take 1 tablet by mouth every four hours as needed for pain HYDROcodone-acetaminophen ([place]erson) 5-325 MG per tablet 1 tablet Calcium Carbonate-Vitamin D2 500 mg(1,250mg) -200 unit tablet (7 sources) Start: 07-30-2024 Start: 07-30-2024 Calcium Carbon ate-Vitamin D2 500 mg(1,250mg) -200 unit tablet Active {tbl} PO daily July 30, 2024 12:00am DULoxetine 60 mg delayed release oral capsule (18 sources) Serotonin and Norepinephrine Reuptake Inhibitor Start: 07-30-2024 End: 09-25-2024 take 1 capsule by mouth once daily Ergocalciferol (9 sources) Provitamin D2 Compound take 1 tablet by mouth once daily Ergocalciferol (VITAMIN D2 PO) Take 1 tablet by mouth daily. Suspended take 1 tablet by mouth once sara y Ergocalciferol (VITAMIN D2 PO) Take 1 tablet by mouth daily. Active Vqpqpnhlyjk-Pkjdbafyd-Tskpko er (4 sources) Anticholinergic, Corticosteroid, beta2-Adrenergic Agonist Start: 11-07-2024 Start: 11-07-2024 Fluticasone-Um eclidin-Vilanter (Trelegy Ellipta) 100-62.5-25 mcg blister with device Active 1 NMA INHALATION daily 60 3 November 07, 2024 12:00am Adenocarcinoma of left lung Malignant neoplasm of unspecified part of left bronchus or lung Chronic obstructive pulmonary disease, unspecified administer at approximately the same time(s) each day folic acid 1 mg oral tablet (14 sources) Start: 08-17-2024 take 2 tablets by mo uth once daily leucovorin 15 mg oral tablet (20 sources) Folate Analog Start: 08-17-2024 take 1 tablet by reg th every week Start: 07-30-2024 End: 08-17-2024 take 1 tablet by mouth every week Leucovorin Calcium 5 mg tablet Discontinued 5 mg PO EVERY WEEK July 30, 2024 12:00am August 17, 2024 7:49am methocarbamol 500 mg oral tablet (9 sources) Muscle Relaxant Start: 09-25-2024 End: 10-04-2024 [...] 09/22/24 at 1142 methotrexate 2.5 mg oral tab let (16 sources) Folate Analog Metabolic Inhibitor Start: 08-17-2024 Start: 07-30-2024 End: 08-17-2024 take 8 tablets by mouth every week Methotrexate 2 mg/mL solution Discontinued 0 PO EVERY WEEK July 30, 2024 12:00am August 17, 2024 7:48am 8 tabs orally every week; predniSONE 5 mg oral tablet (14 sources) Start: 08-17-2024 take 1 tablet by mouth once daily as needed varenicline 1 mg oral tablet (11 sources) Partial Cholinergic Nicotinic Agonist Start: 08-17-2024 take 1 tablet by mouth once take 1 tablet by mouth twice manuel ly varenicline (Chantix) 0.5 MG tablet Take 0.5 [...] mouth once Va renicline Tartrate (Chantix Starting ) 0.5 mg (11)- 1 mg (42) tablets,dose pack Active 0 PO per package directions August 17, 2024 12:00am PO PER PKG DIR Completed/Discontinued Medications Medication Drug Class(es) Dates Sig (Normalized) Sig (Original) acetaminophen 325 mg oral tablet (15 sources) Start: 09-20-2024 End: 09-21-2024 take 1 tablet by mouth every six hours 650 mg, Oral, Every 6 hours, First dose on [facility] 09/20/24 at 1800, Phase II/On Unit, Maximum dose of acetaminophen is 4000 mg from all sources in 24 hours. Start: 09-20-2024 End: 09-20-2024 1,000 mg, Oral, Once, On [facility] 09/20/24 at 1015, For 1 dose, Preprocedure, Administer 60 minutes prior to surgery. Start: 09-20-2024 End: 09-20-2024 1,000 mg, Oral, Once, On [facility] 09/20/24 at 1015, For 1 dose, Preprocedure, Administer 60 minutes prior to surgery. Start: 07-30-2024 take 1000 mg by mout h twice daily take 2 tablets by mo uth twice daily acetaminophen (Tylenol) 500 MG tablet [...] Procedur e, Starting on Ирина 09/20/24 at 1345, For [...] 2 5 IntraVENous, Continuous PRN, Starting on Tue09/20/24 at 1350, Anesthesia Intraprocedure Start: 09-20-2024 End: 09-20-2024 take 50 mL intravenously every hour 50 mL/hr, IntraVENous, Continuous, Starting on Ирина 09/20/24 at 1015, Preprocedure, Upon admission to sameday - please start iv if patient does not have iv access. Use 500ml NS for patients on dialysis. cetirizine hydrochloride 10 mg oral tablet (19 sources) Histamine-1 Receptor Antagonist Start: 09-21-2024 End: 09-25-2024 take 10 mg by mouth once daily 10 mg, Oral, Daily, First dose on Tue09/21/24 at 0900 Start: 07-30-2024 take 1 capsule by [facility] once daily cetirizine HCl ( ZYRTEC ORAL) Take by mouth. 0 Active Comment on above: Take by mouth. 1 ml dexamethasone phosphate 10 mg/ml injection (1 source) Corticosteroid Start: 09-20-2024 End: 09-20-2024 IntraVENous, As needed, Starting on Ирина 09/20/24 at 1335, Anesthesia Intraprocedure uecIHWMSmsiih-rrhfycfwibt-v pinephrine (TAP) syringe (2 sources) Start: 09-20-2024 End: 05-15-2025 Injection, Once PRN Procedure, Starting on Ирина [...] 1646 docusate sodium 50 mg / sennosides, assisted 8.6 mg oral tablet (4 sources) Start: [...] chloride 0.9 % 30 mL (1 mg/mL) TERADATA DEVELOPER (2 sources) Start: 09-20-2024 End: 09-21-2024 TERADATA DEVELOPER Dose: 0.3 mg, Lockout Interval: 15 Minutes, Basal (Continuous) Dose: 0 mg/hr, One Hour (Max) Limit: 1.2 mg, Loading Dose: 0 mg, IntraVENous, Continuous, Starting on Ирина 09/20/24 at 1845, Do NOT administer any narcotics in addition to TERADATA DEVELOPER unless directed to do so by an APS provider. HYDROmorphone (Dilaudid) injection 0.25 mg (2 sources) Start: 09-21-2024 End: 09-25-2024 take 0.25 mg intravenously every four hours as needed for pain HYDROmorphone (Dilaudid) injection 0.25 mg Ibuprofen (1 source) Nonsteroidal Anti-inflammatory Drug ibuprofen (MOTRIN ORAL) Take by mouth. 0 Active Comment on above: Take by mouth. 1 ml ixekizumab 80 mg/ml auto-injector (14 sources) Interleukin-17A Antagonist Start: 07-30-2024 End: 08-17-2024 [...] Start: 07-30-2024 take 8 tablets by mo uth every week Methotrexate 2 mg/mL solution Active [...] at 1428, Anesthesia Intraprocedure polyethylene glycol 3350 77002 mg powder for oral solution (4 sources) Osmotic Laxative Start: 09-24-2024 End: 09-25-2024 17 g, Oral, 2 times daily PRN, constipation, Starting on 09/24/24 at 1330, Phase II/On Unit Start: 09-21-2024 [...] at 166.7 mL/hr, Administer over 90 Minutes, Sales And Service Specialist to O.R., On Ирина 09/20/24 at 1015, For 1 dose, Preprocedure, Administer within 1 hour prior to incision. premix bag, Suspected Indication (Select all that apply): Surgical Prophylaxis, Indications: Default Settings:Auto-dosed by Weight Sales And Service Specialist to O.R x 1 dose Auto-dosed: Pt wt 120kg 2gm Problems Active Problems Problem Classification Problem Date Documented Date Episodic/Chronic Allergic reactions (11 sources) Allergic condition; Translations: [Allergy, unspecified, initial encounter] 07-30-2024 Episodic Cancer of bronchus; lung (14 sources) Adenocarcinoma of left lung; Translations: [Malignant neoplasm of unspecified part of left bronchus or lung] Onset: 11-07-2024 11-07-2024 Chronic Chronic obstructive pulmonary disease and bronchiectasis (9 sources) Mild chronic obstructive pulmonary disease; Translations: [Chronic obstructive pulmonary disease, unspecified] Onset: 11-07-2024 11-07-2024 Chronic Comment on above: FEV1 75% Immunizations and screening for infectious disease (1 source) Suspected disease caused by 2019-nCoV; Translations: [Suspected COVID-19 virus infection] Episodic Malignant neoplasm without specification of site (2 sources) Malignant adenomatous neoplasm; Translations: [Malignant (primary) neoplasm, unspecified] 10-09-2024 Chronic Osteoporosis (1 source) Age-related osteoporosis without current pathological fracture; Translations: [Age-related osteoporosis without current pathological fracture] Onset: 03-15-2025 Chronic Other aftercare (1 source) [facility] [place]; Translations: [Other [place] [facility] [place] [place] therapy] Onset: 03-18-2025 Episodic Other connective tissue disease (2 sources) Fibromyalgia; Translations: [Fibromyalgia] Onset: 02-08-2025 Episodic Other inflammatory condition of skin (7 sources) Psoriatic arthritis; Translations: [Arthropathic psoriasis, unspecified] 07-30-2024 Chronic Other inflammatory condition of skin (2 sources) Other psoriatic arthropathy; Translations: [Other psoriatic arthropathy] Onset: 01-28-2025 Chronic Other inflammatory condition of skin (1 source) Other psoriasis; Translations: [Other psoriasis] Onset: 03-18-2025 Chronic Other lower respiratory disease (8 sources) Dyspnea; Translations: [Shortness of breath] 08-17-2024 Episodic Residual codes; unclassified (8 sources) H/O: pneumonectomy; Translations: [Acquired absence of lung [part of]] 10-10-2024 Episodic Residual codes; unclassified (6 sources) Harmful pattern of use of nicotine; Translations: [Tobacco use] 11-07-2024 Episodic Rheumatoid arthritis and related disease (3 sources) Rheumatoid arthritis; Translations: [Rheumatoid arthritis, unspecified] Onset: 08-28-2024 08-28-2024 Chronic Substance-related disorders (14 sources) Cigarette smoker ; Translations: [Nicotine dependence, cigarettes, uncomplicated] 07-30-2024 Chronic Thyroid disorders (2 sources) Hypothyroidism, unspecified; Translations: [Hypothyroidism, unspecified] Onset: 03-05-2025 Chronic Unclassified (2 sources) Abnormal positron emission tomography of left lung; Translations: [R94.2 - Abnormal results of pulmonary function studies] Past or Other Problems Problem Classification Problem Date Documented Da te Episodic/Chronic Nonmalignant breast conditions (1 source) Other specified disorders of breast; Translations: [Other specified disorders of breast] Onset: 08-02-2024 Episodic Other lower respiratory disease (20 sources) Nodule of lung; Translations: [Solitary pulmonary nodule] Onset: 09-20-2024 07-30-2024 Episodic Comment on above: Left lower lobe imag ing personally reviewed Other lower respiratory disease (3 sources) Solitary nodule of lung; Translations: [Solitary pulmonary nodule] Onset: 09-20-2024 09-20-2024 Episodic Other lower respiratory disease (1 source) Solitary pulmonary nodule; Translations: [Solitary pulmonary nodule] Onset: 09-20-2024 Episodic Other lower respiratory disease (2 sources) Shortness of breath; Translations: [Shortness of breath] Onset: 09-04-2024 Episodic Other lower respiratory disease (1 source) Other nonspecific abnormal finding of lung field; Translations: [Other nonspecific abnormal finding of lung field] Onset: 08-13-2024 Episodic Other screening for suspected conditions (not mental disorders or infectious disease) (9 sources) Imaging of lung abnormal ; Translations: [Abnormal results of pulmonary function studies] Onset: 07-27-2024 08-17-2024 Episodic Comment on above: Left lower lobe Results Test Name Value Interpretation Reference Range Facility Thyroglobulin w/Anti-TG ABon 03-15-2025 Anti-TG AB < 1.0 Normal 0.0-0.9 [facility] Comment on above: Result Comment: Thyr oglobulin Antibody measured by Jim Allamuchy Methodology It should be noted that the presence of thyroglobulin antibodies may not be pathogenic nor diagnostic, especially at very low levels. The assay interior design consultant has found that four percent of individuals without evidence of thyroid disease or autoimmunity will have positive TgAb levels up to 4 IU/mL. Performed By: #### L 100.0100, L3300.6820, [id number] #### [facility] [address] [place], [address] THYROGLOB QUANT 21.0 ng/mL Normal 1.5-38.5 [facility] Comment on above: Result Comment: Acco rding to the National Academy of Clinical Biochemistry, the reference interval for Thyroglobulin (TG) should be related to euthyroid patients and not for patients who underwent thyroidectomy. TG reference intervals for these patients depend on the residual mass of the thyroid tissue left after surgery. Establishing a post-operative baseline is recommended. The assay limit of quantitation is 0.1 ng/mL Thyroglobulin measured by Jim Allamuchy Immunometric Assay Performed at: [facility] [id number] [employer] Nurse: Haris Sheridan PhD, Phone: [phone] Performed By: #### L 100.0100, [id number], [id number] #### [facility] [address] [place], [address] 36on 03-14-2025 36 We have been unable to reach your patient to schedule their testing. Test Name: Ct 1st Attempt: 03/12 pt will call back to schedule Normal [facility] CBC W/Diff, Automatedon 110 Absolute Lymph 1.09 X10 3/uL Normal 0.83-4.51 [facility] Comment on above: Performed By: #### L 100.0100, [id number], [id number] #### [facility] [address] [place], [address] Absolute Neut 3.2 X10 3/uL Normal 2.0-7.7 [facility] Comment on above: Performed By: #### L 100.0100, [id number], [id number] #### [facility] [address] [place], [address] Basophils/100 WBC (Bld) 1.0 % Normal 0-1 [facility] Comment on above: Performed By: #### L 100.0100, [id number], [id number] #### [facility] [address] [place], [address] Eosinophils/100 WBC (Bld) 3.4 % Normal 0-5 [facility] Comment on above: Performed By: #### L 100.0100, [id number], [id number] #### [facility] [address] [place], [address] Erythrocyte distribution width (RBC) [Ratio] 13.9 % Normal 11.6-14.6 [facility] Comment on above: Performed By: #### L 100.0100, [id number], [id number] #### [facility] [address] [place], [address] Hematocrit (Bld) [Volume fraction] 40.6 % Normal 37-47 [facility] Comment on above: Performed By: #### L 100.0100, [id number], [id number] #### [facility] [address] [place], [address] Hemoglobin (Bld) [Mass/Vol] 13.0 g/dL Normal 12.0-15.0 [facility] Comment on above: Performed By: #### L 100.0100, [id number], [id number] #### [facility] [address] [place], [address] IG% 0.400 Normal 0.0-0.9 [facility] Comment on above: Result Comment: IG% - Immature Granulocytes (promyelocytes, myelocytes and metamyelocytes) > 1% indicates that a LEFT SHIFT is Present. Performed By: #### L 100.0100, [id number], [id number] #### [facility] [address] [place], [address] Lymphocytes/100 WBC (Bld) 21.8 % Normal 19-41 [facility] Comment on above: Performed By: #### L 100.0100, [id number], [id number] #### [facility] [address] [place], [address] MCH (RBC) [Entitic mass] 28.4 pg Normal 27.0-32.0 [facility] Comment on above: Performed By: #### L 100.0100, [id number], [id number] #### [facility] [address] [place], [address] MCHC (RBC) [Mass/Vol] 32.0 g/dL Normal 32-36 [facility] Comment on above: Performed By: #### L 100.0100, [id number], [id number] #### [facility] [address] [place], [address] MCV (RBC) [Entitic vol] 88.6 fL Normal 81-99 [facility] Comment on above: Performed By: #### L 100.0100, [id number], [id number] #### [facility] [address] [place], [address] Monocytes/100 WBC (Bld) 9.6 % Normal 0-10 [facility] Comment on above: Performed By: #### L 100.0100, [id number], [id number] #### [facility] [address] [place], [address] Neutrophils/100 WBC (Bld) 63.8 % Normal 47-70 [facility] Comment on above: Performed By: #### L 100.0100, [id number], [id number] #### [facility] [address] [place], [address] Nucleated RBC (Bld) [#/Vol] 0 10*3/uL Normal 0-5 [facility] Comment on above: Performed By: #### L 100.0100, [id number], [id number] #### [facility] [address] [place], [address] Platelet mean volume (Bld) [Entitic vol] 12.2 fL High 6.2-12.0 [facility] Comment on above: Performed By: #### L 100.0100, [id number], [id number] #### [facility] [address] [place], [address] Platelets (Bld) [#/Vol] 316 10*3/uL Normal 150-450 [facility] Comment on above: Performed By: #### L 100.0100, [id number], [id number] #### [facility] [address] [place], [address] RBC (Bld) [#/Vol] 4.58 10*6/uL Normal 4.2-5.4 [facility] Comment on above: Performed By: #### L 100.0100, [id number], [id number] #### [facility] [address] [place], [address] RDW SD 44.7 fl High 35.1-43.9 [facility] Comment on above: Performed By: #### L 100.0100, [id number], [id number] #### [facility] [address] [place], [address] WBC (Bld) [#/Vol] 5.0 10*3/uL Normal 4.4-11.0 [facility] Comment on above: Performed By: #### L 100.0100, [id number], [id number] #### [facility] [address] [place], [address] Comprehensive Metabolic Prof ilon 03-14-2025 Albumin [Mass/Vol] 4.4 g/dL Normal 3.4-4.8 [facility] Comment on above: Performed By: #### L 100.0100, [id number], [id number] #### [facility] [address] [place], [address] Albumin/Globulin [Mass ratio] 1.9 {ratio} Normal 0.9-2.4 [facility] Comment on above: Performed By: #### L 100.0100, [id number], [id number] #### [facility] [address] [place], [address] ALK PHOS 123 U/L High 35-104 [facility] Comment on above: Performed By: #### L 100.0100, [id number], [id number] #### [facility] [address] [place], [address] ALT [Catalytic activity/Vol] 26 U/L Normal <=34 [facility] Comment on above: Performed By: #### L 100.0100, [id number], [id number] #### [facility] [address] [place], [address] AST [Catalytic activity/Vol] 22 U/L Normal <=31 [facility] Comment on above: Performed By: #### L 100.0100, [id number], [id number] #### [facility] [address] [place], [address] Bilirubin [Mass/Vol] 0.37 mg/dL Normal 0.00-1.30 [facility] Comment on above: Performed By: #### L 100.0100, [id number], [id number] #### [facility] [address] [place], [address] BUN/CRE 13.1 RATIO Normal 10-20 [facility] Comment on above: Performed By: #### L 100.0100, [id number], L500.4050 #### [facility] [address] [place], [address] Calcium [Mass/Vol] 9.6 mg/dL Normal 7.6-11.0 [facility] Comment on above: Performed By: #### L 100.0100, L3300.6820, L500.4050 #### [facility] [address] [place], [address] Chloride [Moles/Vol] 104 mmol/L Normal 98-108 [facility] Comment on above: Performed By: #### L 100.0100, L3300.6820, L500.4050 #### [facility] [address] [place], [address] CO2 [Moles/Vol] 23.5 mmol/L Normal 21.0-32.0 [facility] Comment on above: Performed By: #### L 100.0100, L3300.6820, L500.4050 #### [facility] [address] [place], [address] Creatinine [Mass/Vol] 0.79 mg/dL Normal 0.70-1.20 [facility] Comment on above: Performed By: #### L 100.0100, L3300.6820, L500.4050 #### [facility] [address] [place], [address] GAP 11 Normal 5-15 [facility] Comment on above: Performed By: #### L 100.0100, L3300.6820, L500.4050 #### [facility] [address] [place], [address] GFR/1.73 sq M.predicted among non-blacks MDRD (S/P/Bld) [Vol rate/Area] 84 mL/min/{1.73_m2} Normal >60 [facility] Comment on above: Result Comment: mL/m in/1.73m2 CKD-EPI Creatinine Equation (2020) Performed By: #### L 100.0100, L3300.6820, L500.4050 #### [facility] [address] [place], [address] Globulin (S) [Mass/Vol] 2.4 g/dL Normal 2.2-4.2 [facility] Comment on above: Performed By: #### L 100.0100, L3300.6820, L500.4050 #### [facility] [address] [place], [address] Glucose [Mass/Vol] 91 mg/dL Normal 70-99 [facility] Comment on above: Performed By: #### L 100.0100, L3300.6820, L500.4050 #### [facility] [address] [place], [address] Potassium [Moles/Vol] 4.0 mmol/L Normal 3.3-5.1 [facility] Comment on above: Performed By: #### L 100.0100, L3300.6820, L500.4050 #### [facility] [address] [place], [address] Sodium [Moles/Vol] 139 mmol/L Normal 133-145 [facility] Comment on above: Performed By: #### L 100.0100, L3300.6820, L500.4050 #### [facility] [address] [place], [address] T PROT 6.7 g/dL Normal 5.9-8.4 [facility] Comment on above: Performed By: #### L 100.0100, L3300.6820, L500.4050 #### [facility] [address] [place], [address] Urea nitrogen [Mass/Vol] 10 mg/dL Normal 4-19 [facility] Comment on above: Performed By: #### L 100.0100, L3300.6820, L500.4050 #### [facility] [address] [place], [address] L3410.9992on 02-18-2025 [facility] [place] [facility]. COMMENT Normal . [facility] Comment on above: Order Comment: [id number] 8ANTI-TPO AB/SERUM FZ Result Comment: Test Ordered: [id number] Anti-TPO Ab (RDL) Anti-TPO Ab (RDL) 38.7 [H ] IU/mL [facility] Reference Range: <9.0 Performed at: [facility] [address] [place] [id number] [employer] Nurse: Vincent Duncan MD, Phone: [phone] Performed at: [facility] [address] [id number] [employer] Nurse: Haris Sheridan PhD, Phone: [phone] Performed By: #### L 3300.6820, L3410.9992 ####[facility] [address] [place], [address] Thyroglobulin w/Anti-TG ABon 02-08-2025 Anti-TG AB < 1.0 Normal 0.0-0.9 [facility] Comment on above: Result Comment: Thyr oglobulin Antibody measured by Jim Allamuchy Methodology It should be noted that the presence of thyroglobulin antibodies may not be pathogenic nor diagnostic, especially at very low levels. The assay interior design consultant has found that four percent of individuals without evidence of thyroid disease or autoimmunity will have positive TgAb levels up to 4 IU/mL. Performed By: #### L 3300.6820, L3410.9992 ####[facility] [address] [place], [place], [id number] THYROGLOB QUANT 32.5 ng/mL Normal 1.5-38.5 [facility] Comment on above: Result Comment: Acco rding to the National Academy of Clinical Biochemistry, the reference interval for Thyroglobulin (TG) should be related to euthyroid patients and not for patients who underwent thyroidectomy. TG reference intervals for these patients depend on the residual mass of the thyroid tissue left after surgery. Establishing a post-operative baseline is recommended. The assay limit of quantitation is 0.1 ng/mL Thyroglobulin measured by Jim Allamuchy Immunometric Assay Performed at: [employer] [id number] [employer] Nurse: Haris Sheridan PhD, Phone: [phone] Performed By: #### L 3300.6820, L3410.9992 ####[facility] [address] [facility] [address] [place], [place], [id number] Calculated very low density lipoprotein (VLDL) cholesterol measurementOrdered By: Emilie Wheatley on 01-30-2025 Calculated very low density lipoprotein (VLDL) cholesterol measurement 26 mg/dL 5-40 [facility] LDL calc ser/plasOrdered By: Emilie Wheatley on 01-30-2025 Cholesterol in LDL [Mass/Vol] 103 mg/dL [facility] Comment on above: Oblamevhij=508-594 m g/dL & Higher Uzme=371 mg/dL or greaterFriedwald Equation for LDL-C Lipid Profileon 01-30-2025 CHOL:HDL 3.38 Normal [facility] Comment on above: Performed By: #### L 501.9520, L500.4100, L506.1001 ####[facility] [address] [place], [address] Cholesterol [Mass/Vol] 184 mg/dL Normal <=200 [facility] Comment on above: Result Comment: Chol esterol level, Desirable <200 mg/dL Borderline high cholesterol 200-239 mg/dL High cholesterol >=240 mg/dL Recommendations of the NCEP Adult Treatment Panel for the following risk-cutoff thresholds for the [place] population. Performed By: #### L 501.9520, L500.4100, L506.1001 ####[facility] [address] [place], [address] Cholesterol in HDL [Mass/Vol] 55 mg/dL Normal [facility] Comment on above: Result Comment: Melanie onal Cholesterol Education Program (NCEP) guidelines: <40 mg/dL: Low HDL-cholesterol (major risk factor for CHD) >= 60 mg/dL: High HDL-cholesterol (negative risk factor for CHD) HDL-cholesterol is affected by a number of factors, e.g. smoking, exercise, hormones, sex and age. Performed By: #### L 501.9520, L500.4100, L506.1001 ####[facility] [address] [place], [address] Cholesterol in LDL [Mass/Vol] 103 mg/dL Normal [facility] Comment on above: Result Comment: Bord yqpsmb=457-519 mg/dL Higher Jybs=314 mg/dL or greater Friedwald Equation for LDL-C Performed By: #### L 501.9520, L500.4100, L506.1001 ####[facility] [address] [place], [address] Cholesterol in VLDL [Mass/Vol] 26 mg/dL Normal 5-40 [facility] Comment on above: Performed By: #### L 501.9520, L500.4100, L506.1001 ####[facility] [address] [place], [address] Triglyceride [Mass/Vol] 132 mg/dL Normal [facility] Comment on above: Result Comment: The drugs N-Acetylcysteine and Metamizole may falsely depress this assay. Normal range: <150 mg/dL Borderline High: 150-199 mg/dL High: 200-499 mg/dL Very High: >500 mg/dL Performed By: #### L 501.9520, L500.4100, L506.1001 ####[facility] [address] [place], [address] Screening total cholesterol/ high density lipoprotein (HDL) cholesterol ratioOrdered By: Emilie Wheatley on 01-30-2025 Cholesterol.total/Cho lesterol in HDL [Mass ratio] 3.38 {ratio} [facility] Serum or plasma cholesterol in HDL measurement (mass/volume)Ordered By: Emilie Wheatley on 01-30-2025 Cholesterol in HDL [Mass/Vol] 55 mg/dL >40 [facility] Comment on above: National Cholesterol Education Program (NCEP) guidelines:<40 mg/dL: Low HDL-cholesterol (major risk factor for CHD)>= 60 mg/dL: High HDL-cholesterol (negative risk factor for CHD)HDL-cholesterol is affected by a number of factors, e.g. smoking, exercise, hormones, sex and age. Serum or plasma cholesterol measurement (mass/volume)Ordered By: Emilie Wheatley on 01-30-2025 Cholesterol [Mass/Vol] 184 mg/dL <201 [facility] Comment on above: Cholesterol level, D esirable <200 mg/dLBorderline high cholesterol 200-239 mg/dLHigh cholesterol >=240 mg/dLRecommendations of the NCEP Adult Treatment Panel for the following risk-cutoff thresholds for the [place] population. TSH DL <= 0.005 mIU/L QnOrde red By: Emilie Wheatley on 01-30-2025 TSH Qn 4.570 uIU/mL High 0.300-4.200 [facility] Thyroid Stim Hormone (TSH)on 01-30-2025 TSH 4.570 uIU/mL High 0.300-4.200 [facility] Comment on above: Performed By: #### L 501.9520, L500.4100, L506.1001 ####[facility] [address] [facility] [place], [address] Triglycerides measurementOrd ered By: Emilie Wheatley on 01-30-2025 Triglyceride [Mass/Vol] 132 mg/dL <199 [facility] Comment on above: The drugs N-Acetylcy steine and Metamizole may falsely depress this assay. Normal range: <150 mg/dLBorderline High: 150-199 mg/dLHigh: 200-499 mg/dLVery High: >500 mg/dL Vitamin D,25 Hydroxyon 01-30 Vitamin D 25-OH 27.7 ng/mL Low 30-100 [facility] Comment on above: Result Comment: Bharti min D Status Deficiency: <20 ng/mL (50nmol/L) Insufficiency: 20-30 ng/mL (50-75 nmol/L) Sufficiency: 30-100 ng/mL (75-250 nmol/L) Toxicity: >100 ng/mL (>250 nmol/L) Performed By: #### L 501.9520, L500.4100, L506.1001 ####[facility] [address] [place], [address] Absolute lymphocyte countOrd ered By: Maria A Carranza on 01-15-2025 Lymphocytes Auto (Unsp spec) [#/Vol] 1.33 10*3/uL 0.83-4.51 [facility] Absolute neutrophil countOrd ered By: Maria A Carranza on 01-15-2025 Neutrophils (Bld) [#/Vol] 4.9 10*3/uL 2.0-7.7 [facility] Anion gap in Serum or Plasma Ordered By: Maria A Carranza on 01-15-2025 Anion gap [Moles/Vol] 16 mmol/L High 5-15 [facility] Automated lymphocyte count a s percentage of total leukocytesOrdered By: Maria A Carranza on 01-15-2025 Lymphocytes/100 WBC Auto (Unsp spec) 18.6 % Low 19-41 [facility] BUN/creatinine ratioOrdered By: Maria A Carranza on 01-15-2025 Urea nitrogen/Creatinine [Mass ratio] 14.1 mg/mg 10-20 [facility] Basophil percentageOrdered B y: Maria A Blanchardpalomo on 01-15-2025 Basophils/100 WBC (Bld) 0.7 % 0-1 [facility] Bilirubin, totalOrdered By: Maria A Blanchardpalomo on 01-15-2025 Bilirubin [Mass/Vol] 0.34 mg/dL 0.00-1.30 [facility] CBC W/Diff, Automatedon Absolute Lymph 1.33 X10 3/uL Normal 0.83-4.51 [facility] Comment on above: Performed By: #### L 100.0100, L500.4050 #### [facility] [address] [place], [address] Absolute Neut 4.9 X10 3/uL Normal 2.0-7.7 [facility] Comment on above: Performed By: #### L 100.0100, L500.4050 #### [facility] [address] [place], [address] Basophils/100 WBC (Bld) 0.7 % Normal 0-1 [facility] Comment on above: Performed By: #### L 100.0100, L500.4050 #### [facility] [address] [place], [address] Eosinophils/100 WBC (Bld) 3.5 % Normal 0-5 [facility] Comment on above: Performed By: #### L 100.0100, L500.4050 #### [facility] [address] [place], [address] Erythrocyte distribution width (RBC) [Ratio] 13.9 % Normal 11.6-14.6 [facility] Comment on above: Performed By: #### L 100.0100, L500.4050 #### [facility] [address] [place], [address] Hematocrit (Bld) [Volume fraction] 41.3 % Normal 37-47 [facility] Comment on above: Performed By: #### L 100.0100, L500.4050 #### [facility] [address] [place], [address] Hemoglobin (Bld) [Mass/Vol] 13.2 g/dL Normal 12.0-15.0 [facility] Comment on above: Performed By: #### L 100.0100, L500.4050 #### [facility] [address] [place], [address] IG% 0.600 Normal 0.0-0.9 [facility] Comment on above: Result Comment: IG% - Immature Granulocytes (promyelocytes, myelocytes and metamyelocytes) > 1% indicates that a LEFT SHIFT is Present. Performed By: #### L 100.0100, L500.4050 #### [facility] [address] [place], [address] Lymphocytes/100 WBC (Bld) 18.6 % Low 19-41 [facility] Comment on above: Performed By: #### L 100.0100, L500.4050 #### [facility] [address] [place], [address] MCH (RBC) [Entitic mass] 28.8 pg Normal 27.0-32.0 [facility] Comment on above: Performed By: #### L 100.0100, L500.4050 #### [facility] [address] [place], [address] MCHC (RBC) [Mass/Vol] 32.0 g/dL Normal 32-36 [facility] Comment on above: Performed By: #### L 100.0100, L500.4050 #### [facility] [address] [place], [address] MCV (RBC) [Entitic vol] 90.2 fL Normal 81-99 [facility] Comment on above: Performed By: #### L 100.0100, L500.4050 #### [facility] [address] [place], [address] Monocytes/100 WBC (Bld) 8.1 % Normal 0-10 [facility] Comment on above: Performed By: #### L 100.0100, L500.4050 #### [facility] [address] [place], [address] Neutrophils/100 WBC (Bld) 68.5 % Normal 47-70 [facility] Comment on above: Performed By: #### L 100.0100, L500.4050 #### [facility] [address] [place], [address] Nucleated RBC (Bld) [#/Vol] 0 10*3/uL Normal 0-5 [facility] Comment on above: Performed By: #### L 100.0100, L500.4050 #### [facility] [address] [place], [address] Platelet mean volume (Bld) [Entitic vol] 11.6 fL Normal 6.2-12.0 [facility] Comment on above: Performed By: #### L 100.0100, L500.4050 #### [facility] [address] [place], [address] Platelets (Bld) [#/Vol] 321 10*3/uL Normal 150-450 [facility] Comment on above: Performed By: #### L 100.0100, L500.4050 #### [facility] [address] [place], [address] RBC (Bld) [#/Vol] 4.58 10*6/uL Normal 4.2-5.4 [facility] Comment on above: Performed By: #### L 100.0100, L500.4050 #### [facility] [address] [place], [address] RDW SD 45.2 fl High 35.1-43.9 [facility] Comment on above: Performed By: #### L 100.0100, L500.4050 #### [facility] [address] [place], [address] WBC (Bld) [#/Vol] 7.2 10*3/uL Normal 4.4-11.0 [facility] Comment on above: Performed By: #### L 100.0100, L500.4050 #### [facility] [address] [place], [address] Carbon dioxide, total [Moles /volume] in Central venous bloodOrdered By: Maria A Carranza on 01-15-2025 CO2 [Moles/Vol] 22.6 mmol/L 21.0-32.0 [facility] Chloride assayOrdered By: Adalid Carranza on 01-15-2025 Chloride [Moles/Vol] 101 mmol/L 98-108 [facility] Comprehensive Metabolic Prof ilon 01-15-2025 Albumin [Mass/Vol] 4.4 g/dL Normal 3.4-4.8 [facility] Comment on above: Performed By: #### L 100.0100, L500.4050 #### [facility] [address] [place], [address] Albumin/Globulin [Mass ratio] 1.6 {ratio} Normal 0.9-2.4 [facility] Comment on above: Performed By: #### L 100.0100, L500.4050 #### [facility] [address] [place], [address] ALK PHOS 166 U/L High 35-104 [facility] Comment on above: Performed By: #### L 100.0100, L500.4050 #### [facility] [address] [place], [address] ALT [Catalytic activity/Vol] 29 U/L Normal <=34 [facility] Comment on above: Performed By: #### L 100.0100, L500.4050 #### [facility] [address] [place], [address] AST [Catalytic activity/Vol] 24 U/L Normal <=31 [facility] Comment on above: Performed By: #### L 100.0100, L500.4050 #### [facility] [address] [place], [address] Bilirubin [Mass/Vol] 0.34 mg/dL Normal 0.00-1.30 [facility] Comment on above: Performed By: #### L 100.0100, L500.4050 #### [facility] [address] [place], [address] BUN/CRE 14.1 RATIO Normal 10-20 [facility] Comment on above: Performed By: #### L 100.0100, L500.4050 #### [facility] [address] [place], [address] Calcium [Mass/Vol] 10.0 mg/dL Normal 7.6-11.0 [facility] Comment on above: Performed By: #### L 100.0100, L500.4050 #### [facility] [address] [place], [address] Chloride [Moles/Vol] 101 mmol/L Normal 98-108 [facility] Comment on above: Performed By: #### L 100.0100, L500.4050 #### [facility] [address] [place], [address] CO2 [Moles/Vol] 22.6 mmol/L Normal 21.0-32.0 [facility] Comment on above: Performed By: #### L 100.0100, L500.4050 #### [facility] [address] [place], [address] Creatinine [Mass/Vol] 0.82 mg/dL Normal 0.70-1.20 [facility] Comment on above: Performed By: #### L 100.0100, L500.4050 #### [facility] [address] [place], [address] GAP 16 High 5-15 [facility] Comment on above: Performed By: #### L 100.0100, L500.4050 #### [facility] [address] [place], [address] GFR/1.73 sq M.predicted among non-blacks MDRD (S/P/Bld) [Vol rate/Area] 80 mL/min/{1.73_m2} Normal >60 [facility] Comment on above: Result Comment: mL/m in/1.73m2 CKD-EPI Creatinine Equation (2020) Performed By: #### L 100.0100, L500.4050 #### [facility] [address] [place], [address] Globulin (S) [Mass/Vol] 2.7 g/dL Normal 2.2-4.2 [facility] Comment on above: Performed By: #### L 100.0100, L500.4050 #### [facility] [address] [place], [address] Glucose [Mass/Vol] 92 mg/dL Normal 70-99 [facility] Comment on above: Performed By: #### L 100.0100, L500.4050 #### [facility] [address] [place], [address] Potassium [Moles/Vol] 4.3 mmol/L Normal 3.3-5.1 [facility] Comment on above: Performed By: #### L 100.0100, L500.4050 #### [facility] [address] [place], [address] Sodium [Moles/Vol] 139 mmol/L Normal 133-145 [facility] Comment on above: Performed By: #### L 100.0100, L500.4050 #### [facility] [address] [place], [address] T PROT 7.1 g/dL Normal 5.9-8.4 [facility] Comment on above: Performed By: #### L 100.0100, L500.4050 #### [facility] [address] [place], [address] Urea nitrogen [Mass/Vol] 12 mg/dL Normal 4-19 [facility] Comment on above: Performed By: #### L 100.0100, L500.4050 #### [facility] [address] [place], [address] Eosinophil percentageOrdered By: Maria A Carranza on 01-15-2025 Eosinophils/100 WBC (Bld) 3.5 % 0-5 [facility] Erythrocyte distribution wid th ratioOrdered By: [facility] Tere on 01-15-2025 Erythrocyte distribution width (RBC) [Ratio] 13.9 % 11.6-14.6 [facility] Erythrocyte distribution wid th standard deviationOrdered By: Maria A Carranza on 01-15-2025 Erythrocyte distribution width (RBC) [Ratio] 45.2 fl High 35.1-43.9 [facility] Glomerular filtration rate ( GFR) estimation/1.73 sq m using serum, plasma, or whole bOrdered By: Maria A Carranza on 01-15-2025 GFR/1.73 sq M.predicted among non-blacks MDRD (S/P/Bld) [Vol rate/Area] 80 mL/min/{1.73_m2} >60 [facility] Comment on above: mL/min/1.73m2 CKD-EP I Creatinine Equation (2020) Hematocrit Auto (Bld) [Volum e fraction]Ordered By: Maria A Carranza on 01-15-2025 Hematocrit (Bld) [Volume fraction] 41.3 % 37-47 [facility] Hemoglobin measurementOrdere d By: Maria A Carranza on 01-15-2025 Hemoglobin (Bld) [Mass/Vol] 13.2 g/dL 12.0-15.0 [facility] Immature granulocytes/100 WB C Auto (Bld)Ordered By: Maria A Carranza on 01-15-2025 Immature granulocytes/100 WBC (Bld) 0.600 % 0.0-0.9 [facility] Comment on above: IG% - Immature Granu locytes (promyelocytes, myelocytes and metamyelocytes) > 1% indicates that a LEFT SHIFT is Present. Laboratory - Chemistry and C hemistry - challengeOrdered By: Maria A Carranza on 01-15-2025 AST [Catalytic activity/Vol] 24 U/L <32 [facility] MCV (mean corpuscular volume ) determinationOrdered By: Maria A Carranza on 01-15-2025 MCV (RBC) [Entitic vol] 90.2 fL 81-99 [facility] Mean corpuscular hemoglobin (MCH) determinationOrdered By: Maria A Carranza on 01-15-2025 MCH (RBC) [Entitic mass] 28.8 pg 27.0-32.0 [facility] Mean corpuscular hemoglobin concentration (MCHC) determinationOrdered By: Maria A Carranza on 01-15-2025 MCHC (RBC) [Mass/Vol] 32.0 g/dL 32-36 [facility] Mean platelet volume determi nationOrdered By: Maria A Carranza on 01-15-2025 Platelet mean volume (Bld) [Entitic vol] 11.6 fL 6.2-12.0 [facility] Monocyte percentageOrdered B y: Marai A Carranza on 01-15-2025 Monocytes/100 WBC (Bld) 8.1 % 0-10 [facility] Neutrophil percentageOrdered By: Maria A Carranza on 01-15-2025 Neutrophils/100 WBC (Bld) 68.5 % 47-70 [facility] Nucleated red blood cell per centageOrdered By: Maria A Carranza on 01-15-2025 Nucleated RBC/100 WBC (Bld) [Ratio] 0 % 0-5 [facility] Platelet countOrdered By: Adalid Carranza on 01-15-2025 Platelets (Bld) [#/Vol] 321 10*3/uL 150-450 [facility] Potassium measurement (mass/ volume)Ordered By: Maria A Carranza on 01-15-2025 Potassium (Unsp spec) [Mass/Vol] 4.3 mmol/L 3.3-5.1 [facility] RBC Auto (Bld) [#/Vol]Ordere d By: Maria A Carranza on 01-15-2025 RBC (Bld) [#/Vol] 4.58 10*6/uL 4.2-5.4 [facility] Serum creatinine measurement (mass/volume)Ordered By: Maria A Carranza on 01-15-2025 Creatinine [Mass/Vol] 0.82 mg/dL 0.70-1.20 [facility] Serum globulin measurementOr dered By: Maria A Carranza on 01-15-2025 Globulin (S) [Mass/Vol] 2.7 g/dL 2.2-4.2 [facility] Serum glucose measurement (m ass/volume)Ordered By: Maria A Carranza on 01-15-2025 Glucose [Mass/Vol] 92 mg/dL 70-99 [facility] Serum or plasma alanine bennett otransferase (ALT) measurementOrdered By: Maria A Carranza on 01-15-2025 ALT [Catalytic activity/Vol] 29 U/L <35 [facility] Serum or plasma albumin kylah urement (mass/volume)Ordered By: Maria A Carranza on 01-15-2025 Albumin [Mass/Vol] 4.4 g/dL 3.4-4.8 [facility] Serum or plasma albumin/glob ulin mass ratioOrdered By: Maria A Carranza on 01-15-2025 Albumin/Globulin [Mass ratio] 1.6 {ratio} 0.9-2.4 [facility] Serum or plasma alkaline asmita sphatase measurementOrdered By: Maria A Carranza on 01-15-2025 ALP [Catalytic activity/Vol] 166 U/L High 35-104 [facility] Serum or plasma calcium kylah urement (mass/volume)Ordered By: Maria A Carranza on 01-15-2025 Calcium [Mass/Vol] 10.0 mg/dL 7.6-11.0 [facility] Serum or plasma urea nitroge n measurement (mass/volume)Ordered By: Maria A Carranza on 01-15-2025 Urea nitrogen [Mass/Vol] 12 mg/dL 4-19 [facility] Sodium levelOrdered By: Jing Carranza on 01-15-2025 Sodium [Moles/Vol] 139 mmol/L 133-145 [facility] Total proteinOrdered By: Jana Carranza on 01-15-2025 Protein [Mass/Vol] 7.1 g/dL 5.9-8.4 [facility] White blood cell (WBC) count Ordered By: Maria A Carranza on 01-15-2025 WBC (Bld) [#/Vol] 7.2 10*3/uL 4.4-11.0 [facility] Absolute lymphocyte countOrd ered By: Maria A Carranza on 11-27-2024 Lymphocytes Auto (Unsp spec) [#/Vol] 1.56 10*3/uL 0.83-4.51 [facility] Absolute neutrophil countOrd ered By: Maria A Carranza on 11-27-2024 Neutrophils (Bld) [#/Vol] 5.9 10*3/uL 2.0-7.7 [facility] Anion gap in Serum or Plasma Ordered By: Maria A Carranza on 11-27-2024 Anion gap [Moles/Vol] 13 mmol/L 5-15 [facility] Automated lymphocyte count a s percentage of total leukocytesOrdered By: Maria A Carranza on 11-27-2024 Lymphocytes/100 WBC Auto (Unsp spec) 18.2 % Low 19-41 [facility] BUN/creatinine ratioOrdered By: Maria A Carranza on 11-27-2024 Urea nitrogen/Creatinine [Mass ratio] 17.5 mg/mg 10-20 [facility] Basophil percentageOrdered B y: Maria A Carranza on 11-27-2024 Basophils/100 WBC (Bld) 0.7 % 0-1 [facility] Bilirubin, totalOrdered By: Maria A Carranza on 11-27-2024 Bilirubin [Mass/Vol] 0.40 mg/dL 0.00-1.30 [facility] CBC W/Diff, Automatedon 07-2 Absolute Lymph 1.56 X10 3/uL Normal 0.83-4.51 [facility] Comment on above: Performed By: #### L 500.4050, L100.0100 ####[facility] [address] [place], [address] Absolute Neut 5.9 X10 3/uL Normal 2.0-7.7 [facility] Comment on above: Performed By: #### L 500.4050, L100.0100 ####[facility] [address] [place], [address] Basophils/100 WBC (Bld) 0.7 % Normal 0-1 [facility] Comment on above: Performed By: #### L 500.4050, L100.0100 ####[facility] [address] [place], [address] Eosinophils/100 WBC (Bld) 2.7 % Normal 0-5 [facility] Comment on above: Performed By: #### L 500.4050, L100.0100 ####[facility] [address] [place], [address] Erythrocyte distribution width (RBC) [Ratio] 12.8 % Normal 11.6-14.6 [facility] Comment on above: Performed By: #### L 500.4050, L100.0100 ####[facility] [address] [place], [address] Hematocrit (Bld) [Volume fraction] 42.5 % Normal 37-47 [facility] Comment on above: Performed By: #### L 500.4050, L100.0100 ####[facility] [address] [place], [address] Hemoglobin (Bld) [Mass/Vol] 13.4 g/dL Normal 12.0-15.0 [facility] Comment on above: Performed By: #### L 500.4050, L100.0100 ####[facility] [address] [place], [address] IG% 0.300 Normal 0.0-0.9 [facility] Comment on above: Result Comment: IG% - Immature Granulocytes (promyelocytes, myelocytes and metamyelocytes) > 1% indicates that a LEFT SHIFT is Present. Performed By: #### L 500.4050, L100.0100 ####[facility] [address] [place], [address] Lymphocytes/100 WBC (Bld) 18.2 % Low 19-41 [facility] Comment on above: Performed By: #### L 500.4050, L100.0100 ####[facility] [address] [place], [address] MCH (RBC) [Entitic mass] 28.8 pg Normal 27.0-32.0 [facility] Comment on above: Performed By: #### L 500.4050, L100.0100 ####[facility] [address] [place], [address] MCHC (RBC) [Mass/Vol] 31.5 g/dL Low 32-36 [facility] Comment on above: Performed By: #### L 500.4050, L100.0100 ####[facility] [address] [place], [address] MCV (RBC) [Entitic vol] 91.2 fL Normal 81-99 [facility] Comment on above: Performed By: #### L 500.4050, L100.0100 ####[facility] [address] [place], [address] Monocytes/100 WBC (Bld) 9.2 % Normal 0-10 [facility] Comment on above: Performed By: #### L 500.4050, L100.0100 ####[facility] [address] [place], [address] Neutrophils/100 WBC (Bld) 68.9 % Normal 47-70 [facility] Comment on above: Performed By: #### L 500.4050, L100.0100 ####[facility] [address] [place], [address] Nucleated RBC (Bld) [#/Vol] 0 10*3/uL Normal 0-5 [facility] Comment on above: Performed By: #### L 500.4050, L100.0100 ####[facility] [address] [place], [address] Platelet mean volume (Bld) [Entitic vol] 10.7 fL Normal 6.2-12.0 [facility] Comment on above: Performed By: #### L 500.4050, L100.0100 ####[facility] [address] [place], [address] Platelets (Bld) [#/Vol] 358 10*3/uL Normal 150-450 [facility] Comment on above: Performed By: #### L 500.4050, L100.0100 ####[facility] [address] [place], [address] RBC (Bld) [#/Vol] 4.66 10*6/uL Normal 4.2-5.4 [facility] Comment on above: Performed By: #### L 500.4050, L100.0100 ####[facility] [address] [place], [address] RDW SD 42.3 fl Normal 35.1-43.9 [facility] Comment on above: Performed By: #### L 500.4050, L100.0100 ####[facility] [address] [place], [address] WBC (Bld) [#/Vol] 8.6 10*3/uL Normal 4.4-11.0 [facility] Comment on above: Performed By: #### L 500.4050, L100.0100 ####[facility] [address] [place], [address] Carbon dioxide, total [Moles /volume] in Central venous bloodOrdered By: Maria A Carranza on 11-27-2024 CO2 [Moles/Vol] 24.6 mmol/L 21.0-32.0 [facility] Chloride assayOrdered By: Adalid Carranza on 11-27-2024 Chloride [Moles/Vol] 101 mmol/L 98-108 [facility] Comprehensive Metabolic Prof ilon 11-27-2024 Albumin [Mass/Vol] 4.5 g/dL Normal 3.4-4.8 [facility] Comment on above: Performed By: #### L 500.4050, L100.0100 ####[facility] [address] [place], [address] Albumin/Globulin [Mass ratio] 1.7 {ratio} Normal 0.9-2.4 [facility] Comment on above: Performed By: #### L 500.4050, L100.0100 ####[facility] [address] [place], [address] ALK PHOS 162 U/L High 35-104 [facility] Comment on above: Performed By: #### L 500.4050, L100.0100 ####[facility] [address] [place], [address] ALT [Catalytic activity/Vol] 28 U/L Normal <=34 [facility] Comment on above: Performed By: #### L 500.4050, L100.0100 ####[facility] [address] [place], [address] AST [Catalytic activity/Vol] 25 U/L Normal <=31 [facility] Comment on above: Performed By: #### L 500.4050, L100.0100 ####[facility] [address] [place], [address] Bilirubin [Mass/Vol] 0.40 mg/dL Normal 0.00-1.30 [facility] Comment on above: Performed By: #### L 500.4050, L100.0100 ####[facility] [address] [place], [address] BUN/CRE 17.5 RATIO Normal 10-20 [facility] Comment on above: Performed By: #### L 500.4050, L100.0100 ####[facility] [address] [place], [address] Calcium [Mass/Vol] 10.0 mg/dL Normal 7.6-11.0 [facility] Comment on above: Performed By: #### L 500.4050, L100.0100 ####[facility] [address] [place], [address] Chloride [Moles/Vol] 101 mmol/L Normal 98-108 [facility] Comment on above: Performed By: #### L 500.4050, L100.0100 ####[facility] [address] [place], [address] CO2 [Moles/Vol] 24.6 mmol/L Normal 21.0-32.0 [facility] Comment on above: Performed By: #### L 500.4050, L100.0100 ####[facility] [address] [place], [address] Creatinine [Mass/Vol] 0.79 mg/dL Normal 0.70-1.20 [facility] Comment on above: Performed By: #### L 500.4050, L100.0100 ####[facility] [address] [place], [address] GAP 13 Normal 5-15 [facility] Comment on above: Performed By: #### L 500.4050, L100.0100 ####[facility] [address] [place], [address] GFR/1.73 sq M.predicted among non-blacks MDRD (S/P/Bld) [Vol rate/Area] 85 mL/min/{1.73_m2} Normal >60 [facility] Comment on above: Result Comment: mL/m in/1.73m2 CKD-EPI Creatinine Equation (2020) Performed By: #### L 500.4050, L100.0100 ####[facility] [address] [place], [address] Globulin (S) [Mass/Vol] 2.7 g/dL Normal 2.2-4.2 [facility] Comment on above: Performed By: #### L 500.4050, L100.0100 ####[facility] [address] [place], [address] Glucose [Mass/Vol] 92 mg/dL Normal 70-99 [facility] Comment on above: Performed By: #### L 500.4050, L100.0100 ####[facility] [address] [place], [address] Potassium [Moles/Vol] 4.3 mmol/L Normal 3.3-5.1 [facility] Comment on above: Performed By: #### L 500.4050, L100.0100 ####[facility] [address] [place], [address] Sodium [Moles/Vol] 139 mmol/L Normal 133-145 [facility] Comment on above: Performed By: #### L 500.4050, L100.0100 ####[facility] [address] [place], [address] T PROT 7.3 g/dL Normal 5.9-8.4 [facility] Comment on above: Performed By: #### L 500.4050, L100.0100 ####[facility] [address] [place], [place], [address] Urea nitrogen [Mass/Vol] 14 mg/dL Normal 4-19 [facility] Comment on above: Performed By: #### L 500.4050, L100.0100 ####[facility] [address] [place], [address] Eosinophil percentageOrdered By: Maria A Carranza on 11-27-2024 Eosinophils/100 WBC (Bld) 2.7 % 0-5 [facility] Erythrocyte distribution wid th ratioOrdered By: Maria A Carranza on 11-27-2024 Erythrocyte distribution width (RBC) [Ratio] 12.8 % 11.6-14.6 [facility] Erythrocyte distribution wid th standard deviationOrdered By: Maria A Carranza on 11-27-2024 Erythrocyte distribution width (RBC) [Ratio] 42.3 fl 35.1-43.9 [facility] Glomerular filtration rate ( GFR) estimation/1.73 sq m using serum, plasma, or whole bOrdered By: Maria A Carranza on 11-27-2024 GFR/1.73 sq M.predicted among non-blacks MDRD (S/P/Bld) [Vol rate/Area] 85 mL/min/{1.73_m2} >60 [facility] Comment on above: mL/min/1.73m2 CKD-EP I Creatinine Equation (2020) Hematocrit Auto (Bld) [Volum e fraction]Ordered By: Maria A Carranza on 11-27-2024 Hematocrit (Bld) [Volume fraction] 42.5 % 37-47 [facility] Hemoglobin measurementOrdere d By: Maria A Carranza on 11-27-2024 Hemoglobin (Bld) [Mass/Vol] 13.4 g/dL 12.0-15.0 [facility] Immature granulocytes/100 WB C Auto (Bld)Ordered By: Maria A Carranza on 11-27-2024 Immature granulocytes/100 WBC (Bld) 0.300 % 0.0-0.9 [facility] Comment on above: IG% - Immature Granu locytes (promyelocytes, myelocytes and metamyelocytes) > 1% indicates that a LEFT SHIFT is Present. Laboratory - Chemistry and C hemistry - challengeOrdered By: Maria A Carranza on 11-27-2024 AST [Catalytic activity/Vol] 25 U/L <32 [facility] MCV (mean corpuscular volume ) determinationOrdered By: Maria A Carranza on 11-27-2024 MCV (RBC) [Entitic vol] 91.2 fL 81-99 [facility] Mean corpuscular hemoglobin (MCH) determinationOrdered By: Maria A Carranza on 11-27-2024 MCH (RBC) [Entitic mass] 28.8 pg 27.0-32.0 [facility] Mean corpuscular hemoglobin concentration (MCHC) determinationOrdered By: Maria A Carranza on 11-27-2024 MCHC (RBC) [Mass/Vol] 31.5 g/dL Low 32-36 [facility] Mean platelet volume determi nationOrdered By: Maria A Carranza on 11-27-2024 Platelet mean volume (Bld) [Entitic vol] 10.7 fL 6.2-12.0 [facility] Monocyte percentageOrdered B y: Maria A Carranza on 11-27-2024 Monocytes/100 WBC (Bld) 9.2 % 0-10 [facility] Neutrophil percentageOrdered By: Maria A Carranza on 11-27-2024 Neutrophils/100 WBC (Bld) 68.9 % 47-70 [facility] Nucleated red blood cell per centageOrdered By: Maria A Carranza on 11-27-2024 Nucleated RBC/100 WBC (Bld) [Ratio] 0 % 0-5 [facility] Platelet countOrdered By: Adalid Carranza on 11-27-2024 Platelets (Bld) [#/Vol] 358 10*3/uL 150-450 [facility] Potassium measurement (mass/ volume)Ordered By: Maria A Carranza on 11-27-2024 Potassium (Unsp spec) [Mass/Vol] 4.3 mmol/L 3.3-5.1 [facility] RBC Auto (Bld) [#/Vol]Ordere d By: Maria A Carranza on 11-27-2024 RBC (Bld) [#/Vol] 4.66 10*6/uL 4.2-5.4 [facility] Serum creatinine measurement (mass/volume)Ordered By: Maria A Carranza on 11-27-2024 Creatinine [Mass/Vol] 0.79 mg/dL 0.70-1.20 [facility] Serum globulin measurementOr dered By: Maria A Carranza on 11-27-2024 Globulin (S) [Mass/Vol] 2.7 g/dL 2.2-4.2 [facility] Serum glucose measurement (m ass/volume)Ordered By: Maria A Carranza on 11-27-2024 Glucose [Mass/Vol] 92 mg/dL 70-99 [facility] Serum or plasma alanine bennett otransferase (ALT) measurementOrdered By: Maria A Carranza on 11-27-2024 ALT [Catalytic activity/Vol] 28 U/L <35 [facility] Serum or plasma albumin kylah urement (mass/volume)Ordered By: Maria A Carranza on 11-27-2024 Albumin [Mass/Vol] 4.5 g/dL 3.4-4.8 [facility] Serum or plasma albumin/glob ulin mass ratioOrdered By: Maria A Carranza on 11-27-2024 Albumin/Globulin [Mass ratio] 1.7 {ratio} 0.9-2.4 [facility] Serum or plasma alkaline asmita sphatase measurementOrdered By: Maria A Carranza on 11-27-2024 ALP [Catalytic activity/Vol] 162 U/L High 35-104 [facility] Serum or plasma calcium kylah urement (mass/volume)Ordered By: Maria A Carranza on 11-27-2024 Calcium [Mass/Vol] 10.0 mg/dL 7.6-11.0 [facility] Serum or plasma urea nitroge n measurement (mass/volume)Ordered By: Maria A Carranza on 11-27-2024 Urea nitrogen [Mass/Vol] 14 mg/dL 4-19 [facility] Sodium levelOrdered By: Jing Carranza on 11-27-2024 Sodium [Moles/Vol] 139 mmol/L 133-145 [facility] Total proteinOrdered By: Jana tammie Carranza on 11-27-2024 Protein [Mass/Vol] 7.3 g/dL 5.9-8.4 [facility] White blood cell (WBC) count Ordered By: Maria A Carranza on 11-27-2024 WBC (Bld) [#/Vol] 8.6 10*3/uL 4.4-11.0 [facility] Pulmonary Visit Reporton Pulmonary Visit Report [facility] [place] [address] [place] [address] OFFICE VISIT Date of Service: 11/07/24 MR#: [id number] Acct: [id number] Name: FOZIA BREEN Rep #: [id number] : 1960 Provider: LIZANDRO Lew Age/Sex: 63/F [place] [facility] [place] Status: Signed Assessment and Plan Assessment and [...] The patient conveys understanding. 11 minutes spent irxu-ca-phzk discussing smoking cessation. Orders: Orders Chest without Contrast 03/09/25 C34.92 - Malignant neoplasm of unspecified part of left bronchus or lung Medications: New ywfprrovwqe-tfpukooej-adtv nter 100-62.5-25 mcg (Trelegy Ellipta) administer at approximately the same time(s) each day 1 inh inhalation QDAY 60 ea 3RF C34.92 - Malignant neoplasm of unspecified part of left bronchus or lung, J44.9 - Chronic obstructive pulmonary disease, unspecified Plan Details Additional Comments: This note was generated with [employer] dictation software. It may contain incorrect words, [...] breathing problems. Office note from cardiothoracic surgery [facility] surgical services reviewed. The patient underwent lower [...] Pressure Loca (more content not included)... Normal [facility] 36on 10-11-2024 36 Name of caller: Lee Ann Contact phone number: [phone] Relationship to Patient: Employer Provider: Dr Perez Practice: [facility] S[facility] Chief Complaint/Reason for Call: Company needs verification that patient had 09/20/24 procedure -- they faxed over a surgery confirmation form and are asking for it to be faxed [phone] -- not received. Best time of day caller can be reached: AM Patient advised that office/PCP has 24-48 business hours to return their call: No Normal [facility] Office Visiton 10-09-2024 Follow-up visit [id number] Fozia Breen 1960 F Date Provider Department Center 10/09/2024 [id number][facility] None Family History Problem Relation Age of Onset Hypertension Mother Diabetes Mother Asthma Mother Ulcerative colitis Mother Arthritis Mother Coronary artery disease Father Heart attack Father Hypertension Father Heart disease Father Coronary artery disease Brother Heart disease Brother Hypertension Brother Heart attack Brother Family Status - Relation Status Age at Mother Father Brother Level of Service:[address] [place] POSTOP FOLLOW UP VISIT RELATED TO ORIGINAL PX Reason for Visit and Comments: Post-op [483] Normal [facility] Progress Noteon 10-09-2024 Progress Note [facility]: CT SURGEONS [facility] [address] [facility] [address] Dept: [phone] Dept Loc: [phone] Visit type: Established patient - in person [...] 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 Agreeable for first to be [...] Invasive Carcinoma Parenchymal (more content not included)... [facility] 36on 10-02-2024 36 Pt s/p LLL lobectomy [...] new symptoms/concerns arise. Pt verbalized understanding. 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 Chemotherapy and radiation will not be necessary. Radiographic surveillance will be necessary with CT scans every 6 months for 2 years and then annually thereafter. 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 Normal [facility] 30on 09-25-2024 30 Home O2 eval done, p atient did drop sats to [address] Perez visited patient ok for discharge. Normal [facility] [id number] 09-25-2024 [id number] Discharged with home O2. No distress noted. Normal [facility] XR CHEST 1 VIEWon 09-25-2024 XR CHEST 1 VIEW [facility] 1960 [id number] Exam Date/Time: 09/25/2024 07:42 Procedure: XR CHEST [...] Electronically Signed Date/Time: 09/25/2024 8:43 AM EDT [facility] XR Chest Single viewon 09-25 No pneumothorax identified following left chest tube removal. Report Dictated on Electronically Signed By: Reji Valverde MD Electronically Signed Date/Time: 09/25/2024 8:43 AM T [facility] Patient Name: FOZIA BREEN : 1960 Exam Date/Time: 09/25/2024 07:42 Procedure: XR CHEST 1 VIEW Ordering Provider: PEREZ, , LEE ANN Reason For Exam: eval for PTX after [...] a pneumothorax. Stable bibasilar atelectasis. Bones: Stable [facility] Reji Valverde M D - 09/25/2024 Patient Name: FOZIA BREEN : 1960 Exam Date/Time: 09/25/2024 07:42 Procedure: XR CHEST 1 VIEW Ordering Provider: PEREZ, , LEE ANN Reason For Exam: eval for PTX after [...] Electronically Signed Date/Time: 09/25/2024 8:43 AM EDT [facility] Study observation (narrative) [facility] [place] XR Chest Single viewOrdered By: Reji Valverde on 09-25-2024 [facility] [place] Work Phone: 30on 09-24-2024 30 Problem: Pain [...] discharge needs are met Outcome: Progressing Normal [facility] 30 Chest tubes removed per Dr. Aparicio. Tolerated well. Normal [facility] BASIC METABOLIC PANELon 09-06 Anion gap [Moles/Vol] 9 mmol/L Normal 3-13 [facility] Comment on above: Performed By: #### L AB15 ####Business Systems Developer: MAL ARVIZU ([id number])[facility] [place] [address] Calcium [Mass/Vol] 8.9 mg/dL Normal 8.8-10.0 [facility] Comment on above: Performed By: #### L AB15 ####Business Systems Developer: MAL ARVIZU ([id number])[facility] [place] [address] Chloride [Moles/Vol] 99 mmol/L Normal 98-107 [facility] Comment on above: Performed By: #### L AB15 ####Business Systems Developer: MAL ARVIZU ([id number])[facility])[address] [place] [address] CO2 [Moles/Vol] 28 mmol/L Normal 23-31 [facility] Comment on above: Performed By: #### L AB15 ####Business Systems Developer: MAL ARVIZU ([id number])[facility])[address] [place] [address] Creatinine [Mass/Vol] 0.68 mg/dL Normal 0.57-1.11 [facility] Comment on above: Performed By: #### L AB15 ####Business Systems Developer: MAL ARVIZU ([id number])[facility])[address] [place] [address] GLOMERULAR FILTRATION RATE ML/MIN/1.73 SQ M.PREDICTED >90.0 Normal >60.0 [facility] Comment on above: Result Comment: Calc ulation based on the Chronic Kidney Disease Epidemiology Collaboration (CKD-EPI) equation refit without adjustment for race Performed By: #### L AB15 ####Business Systems Developer: MAL ARVIZU ([id number])[facility])[address] [place] [address] Glucose [Mass/Vol] 121 mg/dL High 82-115 [facility] Comment on above: Performed By: #### L AB15 ####Business Systems Developer: MAL ARVIZU ([id number])[facility])[address] [place] [address] Potassium [Moles/Vol] 4.1 mmol/L Normal 3.5-5.1 [facility] Comment on above: Result Comment: [facility] potassium values may be up to 0.5 mmol/L lower than serum values. Performed By: #### L AB15 ####Business Systems Developer: MAL ARVIZU ([id number])[facility])[address] [place] [address] Sodium [Moles/Vol] 136 mmol/L Normal 136-145 [facility] Comment on above: Performed By: #### L AB15 ####Business Systems Developer: MAL ARVIZU ([id number])[address] Urea nitrogen [Mass/Vol] 13 mg/dL Normal 9-23 [facility] Comment on above: Performed By: #### L AB15 ####Business Systems Developer: MAL ARVIZU ([id number])[address] Basic metabolic 1998 panelon 09-24-2024 Anion gap [Moles/Vol] 9 mmol/L 3 - 13 mmol/L [facility] Calcium [Mass/Vol] 8.9 mg/dL 8.8 - 10. 0 mg/dL [facility] Chloride [Moles/Vol] 99 mmol/L 98 - 10 7 mmol/L [facility] CO2 [Moles/Vol] 28 mmol/L 23 - 31 mmol/L [facility] Creatinine [Mass/Vol] 0.68 mg/dL 0.57 - 1.11 mg/dL [facility] GFR/1.73 sq M.predicted (S/P/Bld) [Vol rate/Area] - PINF [facility] Comment on above: Calculation based on the Chronic Kidney Disease Epidemiology Collaboration (CKD-EPI) equation refit without adjustment for race Glucose [Mass/Vol] 121 mg/dL High 82 - 115 mg/dL [facility] Interpretation and review of laboratory results Abnormal [facility] Potassium [Moles/Vol] 4.1 mmol/L 3.5 - 5.1 mmol/L [facility] Comment on above: Plasma potassium roxy ues may be up to 0.5 mmol/L lower than serum values. Sodium [Moles/Vol] 136 mmol/L 136 - 145 mmol/L [facility] Urea nitrogen [Mass/Vol] 13 mg/dL 9 - 23 mg/dL [facility] CBC (HEMOGRAM)on 09-24-2024 Erythrocyte distribution width (RBC) [Ratio] 13.4 % Normal 11.5-15.0 [facility] Comment on above: Performed By: #### L AB294 ####Business Systems Developer: MAL ARVIZU ([id number])[facility])[address] [place] [address] Hematocrit (Bld) [Volume fraction] 37.5 % Normal 35.0-47.0 [facility] Comment on above: Performed By: #### L AB294 ####Business Systems Developer: MAL ARVIZU ([id number])[facility])[address] [place] [address] Hemoglobin (Bld) [Mass/Vol] 12.2 g/dL Normal 11.7-16.0 [facility] Comment on above: Performed By: #### L [id number] ####Business Systems Developer: MAL ARVIZU ([id number])[facility])[address] [place] [address] MCH (RBC) [Entitic mass] 30.1 pg Normal 26.0-34.0 [facility] Comment on above: Performed By: #### L [id number] ####Business Systems Developer: MAL ARVIZU ([id number])[facility])[address] [place] [address] MCHC 32.5 % Normal 30.5-36.0 [facility] Comment on above: Performed By: #### L [id number] ####Business Systems Developer: MAL ARVIZU ([id number])[facility])[address] [place] [address] MCV (RBC) [Entitic vol] 92.6 fL Normal 77.0-99.0 [facility] Comment on above: Performed By: #### L [id number] ####Business Systems Developer: MAL ARVIZU ([id number])[facility])[address] [place] [address] Platelet mean volume (Bld) [Entitic vol] 11.0 fL Normal 9.0-12.7 [facility] Comment on above: Performed By: #### L [id number] ####Business Systems Developer: MAL ARVIZU ([id number])[facility])[address] [place] [address] Platelets (Bld) [#/Vol] 277 10*3/uL Normal 140-440 [facility] Comment on above: Performed By: #### L [id number] ####Business Systems Developer: MAL ARVIZU ([id number])[address] RBC (Bld) [#/Vol] 4.05 10*6/uL Normal 3.80-5.20 [facility] Comment on above: Performed By: #### L [id number] ####Business Systems Developer: MAL ARVIZU ([id number])[facility])[address] [place] [address] WBC (Bld) [#/Vol] 8.0 10*3/uL Normal 3.6-10.7 [facility] Comment on above: Performed By: #### L [id number] ####Business Systems Developer: MAL ARVIZU ([id number])[address] CBC panel Auto (Bld)on 09-24 Erythrocyte distribution width (RBC) [Ratio] 13.4 % 11.5 - 15.0 % [facility] Hematocrit (Bld) [Volume fraction] 37.5 % 35.0 - 47.0 % [facility] Hemoglobin (Bld) [Mass/Vol] 12.2 g/dL 11.7 - 16.0 g/dL [facility] Interpretation and review of laboratory results Normal [facility] MCH (RBC) [Entitic mass] 30.1 pg 26.0 - 34.0 pg [facility] MCHC (RBC) [Mass/Vol] 32.5 % 30.5 - 36.0 % [facility] MCV (RBC) [Entitic vol] 92.6 fL 77.0 - 99.0 fL [facility] Platelet mean volume (Bld) [Entitic vol] 11 fL 9.0 - 12.7 fL [facility] Platelets (Bld) [#/Vol] 277 10*3/uL 140 - 440 10*3/uL [facility] RBC (Bld) [#/Vol] 4.05 10*6/uL 3.80 - 5.2 0 10*6/uL [facility] WBC (Bld) [#/Vol] 8 10*3/uL 3.6 - 10.7 10*3/uL [facility] Progress Noteon 09-24-2024 Progress Note Left chest tubes rem rema. Occlusive dressing applied. Patient tolerated well. Normal [facility] Progress Note PHYSICAL THERAPY [facility] Treatment Note Name/MRN: Fozia Breen ([id number]) Date of : 1960 Age: 63 y.o. Room[facility]Bed: [facility] Discharge Recommendation: Home with assist [...] 24 Minutes (gait x2) Cydney Billings, PT [facility] Progress Note Saw patient [address] removal. Had trace air leak with cough. Plan CT clamp trial [id number], CXR 1630. Can remove CT this pm if no PTX on CXR. Moises Pacheco MD PGY5, General Surgery Pager #[phone] Normal [facility] XR CHEST 1 VIEWon 09-24-2024 XR CHEST [...] Electronically Signed Date/Time: 09/24/2024 4:42 PM EDT [facility] XR CHEST 1 VIEW Patient Name: FOZIA [...] Electronically Signed Date/Time: 09/24/2024 6:43 AM EDT Normal [facility] XR Chest Single viewon 09-24 Patient Name: [...] Electronically Signed Date/Time: 09/24/2024 4:42 PM EDT [facility] Jose E Urban MD - 09/24/2024 [...] Electronically Signed Date/Time: 09/24/2024 4:42 PM EDT [facility] Radiology Study observation (narrative) [facility] Left chest tubes. Op acity at the lung bases greater on the left, likely atelectasis Report Dictated on Electronically Signed By: Jani Finnegan MD Electronically Signed Date/Time: 09/24/2024 6:43 AM EDT [facility] Patient Name: FOZIA BREEN DOB: 1960 Exam Date/Time: 09/24/2024 06:12 Procedure: XR [...] other consolidation. The costophrenic angles are obscured. [facility] Jani Finnegan MD - 09/24/2024 Patient Name: [...] Electronically Signed Date/Time: 09/24/2024 6:43 AM EDT [facility] Radiology Study observation (narrative) [facility] XR Chest Single viewOrdered By: Jose E Urban on 09-24-2024 [facility] [place] Work Phone: 30on 09-23-2024 30 Problem: Pain [...] discharge needs are met Outcome: Progressing Normal [facility] BASIC METABOLIC PANELon 05- Anion gap [Moles/Vol] 10 mmol/L Normal 3-13 [facility] Comment on above: Performed By: #### L AB15 #### Business Systems Developer: MAL ARVIZU ([id number]) [facility]) [address] [place] [address] Calcium [Mass/Vol] 9.1 mg/dL Normal 8.8-10.0 [facility] Comment on above: Performed By: #### L AB15 #### Business Systems Developer: MAL ARVIZU ([id number]) [facility] ([facility]) [address] [place] [address] [place] Chloride [Moles/Vol] 99 mmol/L Normal 98-107 [facility] Comment on above: Performed By: #### L AB15 #### Business Systems Developer: MAL ARVIZU ([id number]) [facility] ([facility]) [address] [place] [address] [place] CO2 [Moles/Vol] 27 mmol/L Normal 23-31 [facility] Comment on above: Performed By: #### L AB15 #### Business Systems Developer: MAL ARVIZU ([id number]) [facility] ([facility]) [address] [place] [address] [place] Creatinine [Mass/Vol] 0.67 mg/dL Normal 0.57-1.11 [facility] Comment on above: Performed By: #### L AB15 #### Business Systems Developer: MAL ARVIZU ([id number]) [facility]) [address] [place] [address] GLOMERULAR FILTRATION RATE ML/MIN/1.73 SQ M.PREDICTED >90.0 Normal >60.0 [facility] Comment on above: Result Comment: Calc ulation based on the Chronic Kidney Disease Epidemiology Collaboration (CKD-EPI) equation refit without adjustment for race Performed By: #### L AB15 #### Business Systems Developer: MAL ARVIZU ([id number]) [facility] ([facility]) [address] [place] [address] Glucose [Mass/Vol] 107 mg/dL Normal 82-115 [facility] Comment on above: Performed By: #### L AB15 #### Business Systems Developer: MAL ARVIZU ([id number]) [facility]) [address] [place] [address] Potassium [Moles/Vol] 4.5 mmol/L Normal 3.5-5.1 [facility] Comment on above: Result Comment: [facility] potassium values may be up to 0.5 mmol/L lower than serum values. Performed By: #### L AB15 #### Business Systems Developer: MAL ARVIZU ([id number]) [facility] ([facility]) [address] [place] [address] Sodium [Moles/Vol] 136 mmol/L Normal 136-145 [facility] Comment on above: Performed By: #### L AB15 #### Business Systems Developer: MAL ARVIZU ([id number]) [facility]) [address] [place] [address] Urea nitrogen [Mass/Vol] 15 mg/dL Normal 9-23 [facility] Comment on above: Performed By: #### L AB15 #### Business Systems Developer: MAL ARVIZU ([id number]) [facility] ([facility]) [address] [place] [address] Basic metabolic 1998 panelon 09-23-2024 Anion gap [Moles/Vol] 10 mmol/L 3 - 13 mmol/L [facility] Calcium [Mass/Vol] 9.1 mg/dL 8.8 - 10. 0 mg/dL [facility] Chloride [Moles/Vol] 99 mmol/L 98 - 10 7 mmol/L [facility] CO2 [Moles/Vol] 27 mmol/L 23 - 31 mmol/L [facility] Creatinine [Mass/Vol] 0.67 mg/dL 0.57 - 1.11 mg/dL [facility] GFR/1.73 sq M.predicted (S/P/Bld) [Vol rate/Area] - PINF [facility] Comment on above: Calculation based on the Chronic Kidney Disease Epidemiology Collaboration (CKD-EPI) equation refit without adjustment for race Glucose [Mass/Vol] 107 mg/dL 82 - 115 mg/dL [facility] Interpretation and review of laboratory results Normal [facility] Potassium [Moles/Vol] 4.5 mmol/L 3.5 - 5.1 mmol/L [facility] Comment on above: Plasma potassium roxy ues may be up to 0.5 mmol/L lower than serum values. Sodium [Moles/Vol] 136 mmol/L 136 - 145 mmol/L [facility] Urea nitrogen [Mass/Vol] 15 mg/dL 9 - 23 mg/dL [facility] CBC (HEMOGRAM)on 09-23-2024 Erythrocyte distribution width (RBC) [Ratio] 13.5 % Normal 11.5-15.0 [facility] Comment on above: Performed By: #### L [id number] ####Business Systems Developer: MAL ARVIZU ([id number])[address] Hematocrit (Bld) [Volume fraction] 39.4 % Normal 35.0-47.0 [facility] Comment on above: Performed By: #### L [id number] ####Business Systems Developer: MAL ARVIZU ([id number])[address] Hemoglobin (Bld) [Mass/Vol] 12.6 g/dL Normal 11.7-16.0 [facility] Comment on above: Performed By: #### L [id number] ####Business Systems Developer: MAL ARVIZU ([id number])[facility] ([facility])[address] [place] [address] MCH (RBC) [Entitic mass] 29.9 pg Normal 26.0-34.0 [facility] Comment on above: Performed By: #### L [id number] ####Business Systems Developer: MAL ARVIZU ([id number])[facility] ([facility])[address] [place] [address] MCHC 32.0 % Normal 30.5-36.0 [facility] Comment on above: Performed By: #### L [id number] ####Business Systems Developer: MAL ARVIZU ([id number])[facility] ([facility])[address] [place] [address] MCV (RBC) [Entitic vol] 93.4 fL Normal 77.0-99.0 [facility] Comment on above: Performed By: #### L [id number] ####Business Systems Developer: MAL ARVIZU ([id number])[facility] ([facility])[address] [place] [address] Platelet mean volume (Bld) [Entitic vol] 11.0 fL Normal 9.0-12.7 [facility] Comment on above: Performed By: #### L [id number] ####Business Systems Developer: MAL ARVIZU ([id number])[facility] ([facility])[address] [place] [address] Platelets (Bld) [#/Vol] 259 10*3/uL Normal 140-440 [facility] Comment on above: Performed By: #### L [id number] ####Business Systems Developer: MAL ARVIZU ([id number])[facility] ([facility])[address] [place] [address] RBC (Bld) [#/Vol] 4.22 10*6/uL Normal 3.80-5.20 [facility] Comment on above: Performed By: #### L [id number] ####Business Systems Developer: MAL ARVIZU ([id number])[facility] ([facility])[address] [place] [address] WBC (Bld) [#/Vol] 11.7 10*3/uL High 3.6-10.7 [facility] Comment on above: Performed By: #### L [id number] ####Business Systems Developer: MAL ARVIZU ([id number])[facility] ([facility])[address] [place] [address] CBC panel Auto (Bld)on 09-23 Erythrocyte distribution width (RBC) [Ratio] 13.5 % 11.5 - 15.0 % [facility] Hematocrit (Bld) [Volume fraction] 39.4 % 35.0 - 47.0 % [facility] Hemoglobin (Bld) [Mass/Vol] 12.6 g/dL 11.7 - 16.0 g/dL [facility] Interpretation and review of laboratory results Abnormal [facility] MCH (RBC) [Entitic mass] 29.9 pg 26.0 - 34.0 pg [facility] MCHC (RBC) [Mass/Vol] 32 % 30.5 - 36.0 % [facility] MCV (RBC) [Entitic vol] 93.4 fL 77.0 - 99.0 fL [facility] Platelet mean volume (Bld) [Entitic vol] 11 fL 9.0 - 12.7 fL [facility] Platelets (Bld) [#/Vol] 259 10*3/uL 140 - 440 10*3/uL [facility] RBC (Bld) [#/Vol] 4.22 10*6/uL 3.80 - 5.2 0 10*6/uL [facility] WBC (Bld) [#/Vol] 11.7 10*3/uL High 3.6 - 10.7 10*3/uL [facility] Progress Noteon 09-23-2024 Progress Note PHYSICAL THERAPY [facility] Treatment Note Name/MRN: Fozia Breen ([id number]) Date of : 1960 Age: 63 y.o. [...] Supervision Good technique, no instability Device(s) used: Reframe Itzzie Ambulation Ambulation 1 Assistive device(s) used: Reframe ItzzDashBurst Assist level: SBA Distance (ft): 350ft Quality [...] 31 Timed Code Treatment Minutes: 31 Minutes (Gait, TP) Nga Noriega PTA [facility] XR CHEST 1 VIEWon 09-23-2024 XR CHEST [...] Electronically Signed Date/Time: 09/23/2024 5:33 AM EDT [facility] XR Chest Single viewon 09-23 1. No significant interval change. Report Dictated on Electronically Signed By: Jamal Dumont MD Electronically Signed Date/Time: 09/23/2024 5:33 AM EDT [facility] Patient Name: FOZIA BREEN : 1960 [...] without significant interval change. No apparent pneumothorax. [facility] Jamal Dumont MD - 09/23/2024 Patient Name: FOZIA BREEN : 1960 Exam Date/Time: 09/23/2024 05:19 Procedure: XR CHEST 1 VIEW Ordering Provider: PEREZ LEE ANN Reason For Exam: Chest tube [...] Electronically Signed Date/Time: 09/23/2024 5:33 AM EDT [facility] Radiology Study observation (narrative) [facility] BASIC METABOLIC PANELon 09-06 Anion gap [Moles/Vol] 12 mmol/L Normal 3-13 [facility] Comment on above: Performed By: #### L AB15 ####Business Systems Developer: MAL ARVIZU ([id number])[facility] [place] [place] [address] [place] Calcium [Mass/Vol] 9.2 mg/dL Normal 8.8-10.0 [facility] Comment on above: Performed By: #### L AB15 ####Business Systems Developer: MAL ARVIZU ([id number])[facility] ([facility])[address] [place] [address] Chloride [Moles/Vol] 99 mmol/L Normal 98-107 [facility] Comment on above: Performed By: #### L AB15 ####Business Systems Developer: MAL ARVIZU ([id number])[facility] ([facility])[address] [place] [address] CO2 [Moles/Vol] 24 mmol/L Normal 23-31 [facility] Comment on above: Performed By: #### L AB15 ####Business Systems Developer: MAL ARVIZU ([id number])[facility] ([facility])[address] [place] [address] Creatinine [Mass/Vol] 0.75 mg/dL Normal 0.57-1.11 [facility] Comment on above: Performed By: #### L AB15 ####Business Systems Developer: MAL ARVIZU ([id number])[facility] ([facility])[address] [place] [address] GLOMERULAR FILTRATION RATE ML/MIN/1.73 SQ M.PREDICTED >90.0 Normal >60.0 [facility] Comment on above: Result Comment: Calc ulation based on the Chronic Kidney Disease Epidemiology Collaboration (CKD-EPI) equation refit without adjustment for race Performed By: #### L AB15 ####Business Systems Developer: MAL ARVIZU ([id number])[facility] ([facility])[address] [place] [address] [place] Glucose [Mass/Vol] 121 mg/dL High 82-115 [facility] Comment on above: Performed By: #### L AB15 ####Business Systems Developer: MAL ARVIZU ([id number])[facility] ([facility])[address] [place] [address] [place] Potassium [Moles/Vol] 4.7 mmol/L Normal 3.5-5.1 [facility] Comment on above: Result Comment: [facility] potassium values may be up to 0.5 mmol/L lower than serum values. Performed By: #### L AB15 ####Business Systems Developer: MAL ARVIZU ([id number])[facility] [place] [address] Sodium [Moles/Vol] 135 mmol/L Low 136-145 [facility] Comment on above: Performed By: #### L AB15 ####Business Systems Developer: MAL ARVIZU ([id number])[facility] ([facility])[address] [place] [address] Urea nitrogen [Mass/Vol] 20 mg/dL Normal 9-23 [facility] Comment on above: Performed By: #### L AB15 ####Business Systems Developer: MAL ARVIZU ([id number])[facility] ([facility])[address] [place] [address] Basic metabolic 1998 panelon 09-22-2024 Anion gap [Moles/Vol] 12 mmol/L 3 - 13 mmol/L [facility] Calcium [Mass/Vol] 9.2 mg/dL 8.8 - 10. 0 mg/dL [facility] Chloride [Moles/Vol] 99 mmol/L 98 - 10 7 mmol/L [facility] CO2 [Moles/Vol] 24 mmol/L 23 - 31 mmol/L [facility] Creatinine [Mass/Vol] 0.75 mg/dL 0.57 - 1.11 mg/dL [facility] GFR/1.73 sq M.predicted (S/P/Bld) [Vol rate/Area] - PINF [facility] Comment on above: Calculation based on the Chronic Kidney Disease Epidemiology Collaboration (CKD-EPI) equation refit without adjustment for race Glucose [Mass/Vol] 121 mg/dL High 82 - 115 mg/dL [facility] Interpretation and review of laboratory results Abnormal [facility] Potassium [Moles/Vol] 4.7 mmol/L 3.5 - 5.1 mmol/L [facility] Comment on above: Plasma potassium roxy ues may be up to 0.5 mmol/L lower than serum values. Sodium [Moles/Vol] 135 mmol/L Low 136 - 145 mmol/L [facility] Urea nitrogen [Mass/Vol] 20 mg/dL 9 - 23 mg/dL [facility] CBC (HEMOGRAM)on 09-22-2024 Erythrocyte distribution width (RBC) [Ratio] 13.4 % Normal 11.5-15.0 [facility] Comment on above: Performed By: #### L [id number] ####Business Systems Developer: MAL ARVIZU ([id number])[facility])[address] [place] [address] Hematocrit (Bld) [Volume fraction] 42.8 % Normal 35.0-47.0 [facility] Comment on above: Performed By: #### L [id number] ####Business Systems Developer: MAL ARVIZU ([id number])[facility])[address] [place] [address] Hemoglobin (Bld) [Mass/Vol] 13.4 g/dL Normal 11.7-16.0 [facility] Comment on above: Performed By: #### L [id number] ####Business Systems Developer: MAL ARVIZU ([id number])[facility])[address] [place] [address] MCH (RBC) [Entitic mass] 29.1 pg Normal 26.0-34.0 [facility] Comment on above: Performed By: #### L [id number] ####Business Systems Developer: MAL ARVIZU ([id number])[facility])[address] [place] [address] MCHC 31.3 % Normal 30.5-36.0 [facility] Comment on above: Performed By: #### L [id number] ####Business Systems Developer: MAL ARVIZU ([id number])[facility])[address] [place] [address] MCV (RBC) [Entitic vol] 92.8 fL Normal 77.0-99.0 [facility] Comment on above: Performed By: #### L [id number] ####Business Systems Developer: MAL ARVIZU ([id number])[facility])[address] [place] [address] Platelet mean volume (Bld) [Entitic vol] 10.7 fL Normal 9.0-12.7 [facility] Comment on above: Performed By: #### L [id number] ####Business Systems Developer: MAL ARVIZU ([id number])[facility] ([facility])[address] [place] [address] Platelets (Bld) [#/Vol] 304 10*3/uL Normal 140-440 [facility] Comment on above: Performed By: #### L [id number] ####Business Systems Developer: MAL ARVIZU ([id number])[facility])[address] [place] [address] RBC (Bld) [#/Vol] 4.61 10*6/uL Normal 3.80-5.20 [facility] Comment on above: Performed By: #### L [id number] ####Business Systems Developer: MAL ARVIZU ([id number])[facility] ([facility])[address] [place] [address] WBC (Bld) [#/Vol] 15.4 10*3/uL High 3.6-10.7 [facility] Comment on above: Performed By: #### L [id number] ####Business Systems Developer: MAL ARVIZU ([id number])[facility] ([facility])[address] [place] [address] CBC panel Auto (Bld)Ordered By: Alberto Rosales on 09-22-2024 Erythrocyte distribution width (RBC) [Ratio] 13.4 % 11.5 - 15.0 % [facility] Hematocrit (Bld) [Volume fraction] 42.8 % 35.0 - 47.0 % [facility] Hemoglobin (Bld) [Mass/Vol] 13.4 g/dL 11.7 - 16.0 g/dL [facility] Interpretation and review of laboratory results Abnormal [facility] MCH (RBC) [Entitic mass] 29.1 pg 26.0 - 34.0 pg [facility] MCHC (RBC) [Mass/Vol] 31.3 % 30.5 - 36.0 % [facility] MCV (RBC) [Entitic vol] 92.8 fL 77.0 - 99.0 fL [facility] [place] Platelet mean volume (Bld) [Entitic vol] 10.7 fL 9.0 - 12.7 fL [facility] [place] Platelets (Bld) [#/Vol] 304 10*3/uL 140 - 440 10*3/uL [facility] [place] RBC (Bld) [#/Vol] 4.61 10*6/uL 3.80 - 5.2 0 10*6/uL [facility] [place] WBC (Bld) [#/Vol] 15.4 10*3/uL High 3.6 - 10.7 10*3/uL [facility] Progress Noteon 09-22-2024 Progress Note PAGING: The Acute Pa in Service providers are available exclusively via [email or web address] SECURE CHAT. APS does not utilize pagers. 09/22/2024 Discharge Recommendations: Henderson 1-2 tablets q8h prn for mod / severe pain Robaxin 750mg PO q8h prn for muscle spasms Stool softeners Pain Management Adjuvants: 0700 --> 0700 09/21/24 Scheduled APAP 650mg Gabapentin Lidocaine patches PRN Hydromorphone IV Methocarbamol Oxycodone Henderson 8 tablets Assessment / Pain Management Plan: Recommendations made, will sign off at this time. Thank you for inviting us to participate in the care of this patient. Acute Postsurgical Chest pain Multimodal pain regimen: BLOCK: Serratus Anterior 09/20/24 Pt requested Henderson post operatively 09/21/24 Does not want IV [...] at chest tube site is controlled with Henderson per her request. Does not like IV [...] Lab Result (more content not included)... Normal [facility] Progress Note Nutrition rescreen completed. Chart reviewed. Patient to be monitored and followed by the diet public health sanitarian technician. Normal [facility] XR CHEST 1 VIEWon 09-22-2024 XR CHEST 1 VIEW Patient Name: FOZIA BREEN : 1960 Exam Date/Time: 09/22/2024 05:16 Procedure: XR CHEST [...] IMPRESSION: No change Report Dictated on Workstation: [employer] Electronically Signed By: Jani Finnegan MD Electronically Signed Date/Time: 09/22/2024 5:44 AM EDT Normal [facility] XR Chest Single viewon 09-22 No change Report Dictated on Workstation: [employer] Electronically Signed By: Jani Finnegan MD Electronically Signed Date/Time: 09/22/2024 5:44 AM EDT [facility] Patient Name: FOZIA BREEN : 1960 Exam Date/Time: 09/22/2024 05:16 Procedure: XR CHEST 1 VIEW Ordering Provider: PEREZ ERIC Reason For Exam: Chest tube placement CHEST - PORTABLE: CLINICAL INDICATION: Chest tube placement. TECHNIQUE: Portable AP COMPARISON: One day ago FINDINGS: Tubes, lines and devices: Two left chest tubes Heart/Mediastinum: Unchanged Lungs/Pleura: Ill-defined opacity at right lung base, likely atelectasis without change. No pneumothorax. Costophrenic angles are sharp. [facility] Jani Finnegan MD - 09/22/2024 Patient Name: FOZIA BREEN : 1960 Exam Date/Time: 09/22/2024 05:16 Procedure: XR CHEST [...] Electronically Signed Date/Time: 09/22/2024 5:44 AM EDT [facility] Radiology Study observation (narrative) [facility] XR Chest Single viewOrdered By: Jani Finnegan on 09-22-2024 [facility] Work Phone: BASIC METABOLIC PANELon 09-06 Anion gap [Moles/Vol] 11 mmol/L Normal 3-13 [facility] Comment on above: Performed By: #### L [id number] ####Business Systems Developer: MAL ARVIZU ([id number])[facility] ([facility])[address] [place] [address] Calcium [Mass/Vol] 8.9 mg/dL Normal 8.8-10.0 [facility] Comment on above: Performed By: #### L AB15 ####Business Systems Developer: MAL ARVIZU ([id number])[facility] ([facility])[address] [place] [address] Chloride [Moles/Vol] 101 mmol/L Normal 98-107 [facility] Comment on above: Performed By: #### L AB15 ####Business Systems Developer: MAL ARVIZU ([id number])[facility] ([facility])[address] [place] [address] CO2 [Moles/Vol] 21 mmol/L Low 23-31 [facility] Comment on above: Performed By: #### L AB15 ####Business Systems Developer: MAL ARVIZU ([id number])[facility] ([facility])[address] [place] [address] Creatinine [Mass/Vol] 0.77 mg/dL Normal 0.57-1.11 [facility] Comment on above: Performed By: #### L AB15 ####Business Systems Developer: MAL ARVIZU ([id number])[facility] ([facility])[address] [place] [address] [place] GLOMERULAR FILTRATION RATE ML/MIN/1.73 SQ M.PREDICTED 87.9 mL/min/1.73m*2 Normal >60.0 [facility] Comment on above: Result Comment: Calc ulation based on the Chronic Kidney Disease Epidemiology Collaboration (CKD-EPI) equation refit without adjustment for race Performed By: #### L AB15 ####Business Systems Developer: MAL [id number])[facility] ([facility])[address] [place] [address] [place] Glucose [Mass/Vol] 159 mg/dL High 82-115 [facility] Comment on above: Performed By: #### L AB15 ####Business Systems Developer: MAL ARVIZU ([id number])[facility] ([facility])[address] [place] [address] Potassium [Moles/Vol] 4.5 mmol/L Normal 3.5-5.1 [facility] Comment on above: Result Comment: [facility] potassium values may be up to 0.5 mmol/L lower than serum values. Performed By: #### L AB15 ####Business Systems Developer: MAL ARVIZU ([id number])[facility] ([facility])[address] [place] [address] Sodium [Moles/Vol] 133 mmol/L Low 136-145 [facility] Comment on above: Performed By: #### L AB15 ####Business Systems Developer: MAL ARVIZU ([id number])[facility] ([facility])[address] [place] [address] Urea nitrogen [Mass/Vol] 17 mg/dL Normal 9-23 [facility] Comment on above: Performed By: #### L AB15 ####Business Systems Developer: MAL ARVIZU ([id number])[facility])[address] [place] [address] Basic metabolic 1998 panelon 09-21-2024 Anion gap [Moles/Vol] 11 mmol/L 3 - 13 mmol/L [facility] Calcium [Mass/Vol] 8.9 mg/dL 8.8 - 10. 0 mg/dL [facility] Chloride [Moles/Vol] 101 mmol/L 98 - 10 7 mmol/L [facility] CO2 [Moles/Vol] 21 mmol/L Low 23 - 31 mmol/L [facility] Creatinine [Mass/Vol] 0.77 mg/dL 0.57 - 1.11 mg/dL [facility] GFR/1.73 sq M.predicted (S/P/Bld) [Vol rate/Area] 87.9 mL/min - PINF [facility] Comment on above: Calculation based on the Chronic Kidney Disease Epidemiology Collaboration (CKD-EPI) equation refit without adjustment for race Glucose [Mass/Vol] 159 mg/dL High 82 - 115 mg/dL [facility] Interpretation and review of laboratory results Abnormal [facility] Potassium [Moles/Vol] 4.5 mmol/L 3.5 - 5.1 mmol/L [facility] Comment on above: Plasma potassium roxy ues may be up to 0.5 mmol/L lower than serum values. Sodium [Moles/Vol] 133 mmol/L Low 136 - 145 mmol/L [facility] Urea nitrogen [Mass/Vol] 17 mg/dL 9 - 23 mg/dL [facility] CBC (HEMOGRAM)on 09-21-2024 Erythrocyte distribution width (RBC) [Ratio] 13.3 % Normal 11.5-15.0 [facility] Comment on above: Performed By: #### L [id number] ####Business Systems Developer: MAL ARVIZU ([id number])[address] Hematocrit (Bld) [Volume fraction] 38.9 % Normal 35.0-47.0 [facility] Comment on above: Performed By: #### L [id number] ####Business Systems Developer: MAL ARVIZU ([id number])[address] Hemoglobin (Bld) [Mass/Vol] 12.8 g/dL Normal 11.7-16.0 [facility] Comment on above: Performed By: #### L [id number] ####Business Systems Developer: MAL ARVIZU ([id number])[address] MCH (RBC) [Entitic mass] 30.1 pg Normal 26.0-34.0 [facility] Comment on above: Performed By: #### L [id number] ####Business Systems Developer: MAL ARVIZU ([id number])[address] MCHC 32.9 % Normal 30.5-36.0 [facility] Comment on above: Performed By: #### L [id number] ####Business Systems Developer: MAL ARVIZU ([id number])[facility])[address] [place] [address] MCV (RBC) [Entitic vol] 91.5 fL Normal 77.0-99.0 [facility] Comment on above: Performed By: #### L [id number] ####Business Systems Developer: MAL ARVIZU ([id number])[facility])[address] [place] [address] Platelet mean volume (Bld) [Entitic vol] 10.8 fL Normal 9.0-12.7 [facility] Comment on above: Performed By: #### L [id number] ####Business Systems Developer: MAL ARVIZU ([id number])[facility])[address] [place] [address] Platelets (Bld) [#/Vol] 284 10*3/uL Normal 140-440 [facility] Comment on above: Performed By: #### L [id number] ####Business Systems Developer: MAL ARVIZU ([id number])[facility])[address] [place] [address] RBC (Bld) [#/Vol] 4.25 10*6/uL Normal 3.80-5.20 [facility] Comment on above: Performed By: #### L [id number] ####Business Systems Developer: MAL ARVIZU ([id number])[facility])[address] [place] [address] WBC (Bld) [#/Vol] 18.6 10*3/uL High 3.6-10.7 [facility] Comment on above: Performed By: #### L [id number] ####Business Systems Developer: MAL ARVIZU ([id number])[facility])[address] [place] [address] CBC panel Auto (Bld)on 09-21 Erythrocyte distribution width (RBC) [Ratio] 13.3 % 11.5 - 15.0 % [facility] Hematocrit (Bld) [Volume fraction] 38.9 % 35.0 - 47.0 % [facility] Hemoglobin (Bld) [Mass/Vol] 12.8 g/dL 11.7 - 16.0 g/dL [facility] Interpretation and review of laboratory results Abnormal [facility] MCH (RBC) [Entitic mass] 30.1 pg 26.0 - 34.0 pg [facility] MCHC (RBC) [Mass/Vol] 32.9 % 30.5 - 36.0 % [facility] MCV (RBC) [Entitic vol] 91.5 fL 77.0 - 99.0 fL [facility] Platelet mean volume (Bld) [Entitic vol] 10.8 fL 9.0 - 12.7 fL [facility] Platelets (Bld) [#/Vol] 284 10*3/uL 140 - 440 10*3/uL [facility] RBC (Bld) [#/Vol] 4.25 10*6/uL 3.80 - 5.2 0 10*6/uL [facility] WBC (Bld) [#/Vol] 18.6 10*3/uL High 3.6 - 10.7 10*3/uL [facility] Consulton 09-21-2024 Consult PAGING: The Acute Pa in Service providers are available exclusively via [email or web address] SECURE CHAT. APS does not utilize pagers. 09/21/2024 Lab Results Component Value Date CREATININE 0.77 09/21/2024 Discharge Recommendations: Pending Pain Management Adjuvants: 0700 --> 0700 09/20/2024 Scheduled APAP 2,950 mg PRN Hydromorphone IV 1.8 mg Assessment / Pain Management Plan: Will follow. Acute Postsurgical Chest pain Multimodal pain regimen: BLOCK: : Serratus Anterior Discontinue TERADATA DEVELOPER Order PO Henderson 1-2 tabs Q 4 hours PRN for [...] for NSCLS Reviewed Chest X ray 09/20 JOHNNIEEON, no pages. On arrival, pt sitting in bedside chair. Pt's family at bedside Pt appears well, comfortable. States she does not like to take narcotics if possible, requesting TERADATA DEVELOPER be discontinued Ordered PO Henderson per patient request States she ambulated in the thakkar this AM without difficulty, eager to be discharged home Tolerating diet, denies n/v. Patient educated on pain regimen, aware that PO Henderson and IV hydromorphone are PRN and patient [...] rate. Pulmonary: (more content not included)... Normal [facility] XR CHEST 1 VIEWon 09-21-2024 XR CHEST 1 VIEW [facility] 1960 [id number] Exam Date/Time: 09/21/2024 08:40 Procedure: XR CHEST [...] Electronically Signed Date/Time: 09/21/2024 8:54 AM EDT [facility] XR Chest Single viewon 09-21 No significant change when compared with the previous study. Report Dictated on Electronically Signed By: Yousuf Carrasquillo MD Electronically Signed Date/Time: 09/21/2024 8:54 AM EDT [facility] Patient Name: FOZIA BREEN : 1960 Exam Date/Time: 09/21/2024 08:40 Procedure: XR CHEST 1 VIEW Ordering Provider: PEREZ, , LEE ANN Reason For Exam: Chest tube placement PORTABLE [...] evidence of pneumothorax. Bony structures are unremarkable. [facility] Yousuf Carrasquillo MD - 09/21/2024 Patient Name: FOZIA BREEN : 1960 Exam Date/Time: 09/21/2024 08:40 Procedure: XR CHEST 1 VIEW Ordering Provider: PEREZ, , LEE ANN Reason For Exam: Chest tube placement PORTABLE [...] Electronically Signed Date/Time: 09/21/2024 8:54 AM EDT [facility] Radiology Study observation (narrative) [facility] XR Chest Single viewOrdered By: Yousuf Carrasquillo on 09-21-2024 [facility] ABO and Rh group Confirm Nom (Bld)on 09-20-2024 ABO group Nom (Bld) O [facility] D Ag Ql (RBC) Positive [facility] Airwayon 09-20-2024 Mariia Talavera APR N - TRACK SUPERINTENDENT 09/20/2024 2:25 PM Airway Date/Time: 09/20/2024 1:40 PM Reason: scheduled Airway not difficult General Information and Staff Patient location during procedure: Procedural Anesthesiologist: Jorge Ortiz DO Resident/TRACK SUPERINTENDENT: Mariia Talavera APRN - TRACK SUPERINTENDENT Performed: TRACK SUPERINTENDENT Patient Condition Indications for airway management: anesthesia [...] verified by bronch with Dr. Ortiz [facility] Arterial Lineon 09-20-2024 DARRYL Hopper RN - TRACK SUPERINTENDENT 09/20/2024 1:54 PM Arterial Line: Date/Time: 09/20/2024 [...] procedure well with no complications. Staffing Performed: TRACK SUPERINTENDENT Anesthesiologist: Jorge Ortiz DO Resident/TRACK SUPERINTENDENT: Jani Mendoza APRN - ABEL [facility] BASIC METABOLIC PANELon 05- Anion gap [Moles/Vol] 13 mmol/L Normal 3-13 [facility] Comment on above: Performed By: #### L AB15 ####Business Systems Developer: MAL ARVIZU ([id number])[facility] ([facility])[address] [place] [address] Calcium [Mass/Vol] 9.1 mg/dL Normal 8.8-10.0 [facility] Comment on above: Performed By: #### L AB15 ####Business Systems Developer: MAL ARVIZU ([id number])[facility] ([facility])[address] [place] [address] Chloride [Moles/Vol] 103 mmol/L Normal 98-107 [facility] Comment on above: Performed By: #### L AB15 ####Business Systems Developer: MAL ARVIZU ([id number])[facility] ([facility])[address] [place] [address] CO2 [Moles/Vol] 21 mmol/L Low 23-31 [facility] Comment on above: Performed By: #### L AB15 ####Business Systems Developer: MAL ARVIZU ([id number])[facility])[address] [place] [address] Creatinine [Mass/Vol] 0.89 mg/dL Normal 0.57-1.11 [facility] Comment on above: Performed By: #### L AB15 ####Business Systems Developer: MAL ARVIZU ([id number])[facility])[address] [place] [address] GLOMERULAR FILTRATION RATE ML/MIN/1.73 SQ M.PREDICTED 73.9 mL/min/1.73m*2 Normal >60.0 [facility] Comment on above: Result Comment: Calc ulation based on the Chronic Kidney Disease Epidemiology Collaboration (CKD-EPI) equation refit without adjustment for race Performed By: #### L AB15 ####Business Systems Developer: MAL ARVIZU ([id number])[facility] ([facility])[address] [place] [address] Glucose [Mass/Vol] 189 mg/dL High 82-115 [facility] Comment on above: Performed By: #### L AB15 ####Business Systems Developer: MAL ARVIZU ([id number])[facility])[address] [place] [address] Potassium [Moles/Vol] 3.9 mmol/L Normal 3.5-5.1 [facility] Comment on above: Result Comment: [facility] potassium values may be up to 0.5 mmol/L lower than serum values. Performed By: #### L AB15 ####Business Systems Developer: MAL ARVIZU ([id number])[facility] ([facility])[address] [place] [address] Sodium [Moles/Vol] 137 mmol/L Normal 136-145 [facility] Comment on above: Performed By: #### L AB15 ####Business Systems Developer: MAL ARVIZU ([id number])[facility] ([facility])[address] [place] [address] Urea nitrogen [Mass/Vol] 14 mg/dL Normal 9-23 [facility] Comment on above: Performed By: #### L AB15 ####Business Systems Developer: MAL ARVIZU ([id number])[facility])[address] [place] [address] BLOOD TYPE AND SCREEN GELon 09-20-2024 ABO GROUPING O Normal [facility] Comment on above: Performed By: #### L [id number] ####Business Systems Developer: MAL ARVIZU ([id number])[facility] ([facility])[address] [place] [address] RH TYPE IN BLOOD Positive Normal [facility] Comment on above: Performed By: #### L [id number] ####Business Systems Developer: MAL [id number])[facility] ([facility])[address] [place] [address] Basic metabolic 1998 panelon 09-20-2024 Anion gap [Moles/Vol] 13 mmol/L 3 - 13 mmol/L [facility] Calcium [Mass/Vol] 9.1 mg/dL 8.8 - 10. 0 mg/dL [facility] Chloride [Moles/Vol] 103 mmol/L 98 - 10 7 mmol/L [facility] CO2 [Moles/Vol] 21 mmol/L Low 23 - 31 mmol/L [facility] Creatinine [Mass/Vol] 0.89 mg/dL 0.57 - 1.11 mg/dL [facility] GFR/1.73 sq M.predicted (S/P/Bld) [Vol rate/Area] 73.9 mL/min - PINF [facility] Comment on above: Calculation based on the Chronic Kidney Disease Epidemiology Collaboration (CKD-EPI) equation refit without adjustment for race Glucose [Mass/Vol] 189 mg/dL High 82 - 115 mg/dL [facility] Interpretation and review of laboratory results Abnormal [facility] Potassium [Moles/Vol] 3.9 mmol/L 3.5 - 5.1 mmol/L [facility] Comment on above: Plasma potassium roxy ues may be up to 0.5 mmol/L lower than serum values. Sodium [Moles/Vol] 137 mmol/L 136 - 145 mmol/L [facility] Urea nitrogen [Mass/Vol] 14 mg/dL 9 - 23 mg/dL [facility] Blood type and Crossmatch pa tessy (Bld)on 09-20-2024 ABO group Nom (Bld) O [facility] Blood group antibody screen GEL Ql Negative [facility] D Ag Ql (RBC) Positive [facility] CBC (HEMOGRAM)on 09-20-2024 Erythrocyte distribution width (RBC) [Ratio] 13.3 % Normal 11.5-15.0 [facility] Comment on above: Performed By: #### L [id number] ####Business Systems Developer: MAL ARVIZU ([id number])[facility] ([facility])[address] [place] [address] Hematocrit (Bld) [Volume fraction] 43.4 % Normal 35.0-47.0 [facility] Comment on above: Performed By: #### L [id number] ####Business Systems Developer: MAL ARVIZU ([id number])[facility] ([facility])[address] [place] [address] Hemoglobin (Bld) [Mass/Vol] 13.7 g/dL Normal 11.7-16.0 [facility] Comment on above: Performed By: #### L [id number] ####Business Systems Developer: MAL ARVIZU ([id number])[facility] ([facility])[address] [place] [address] MCH (RBC) [Entitic mass] 29.2 pg Normal 26.0-34.0 [facility] Comment on above: Performed By: #### L [id number] ####Business Systems Developer: MAL ARVIZU ([id number])[facility])[address] [place] [address] MCHC 31.6 % Normal 30.5-36.0 [facility] Comment on above: Performed By: #### L [id number] ####Business Systems Developer: MAL ARVIZU ([id number])[facility] ([facility])[address] [place] [address] MCV (RBC) [Entitic vol] 92.5 fL Normal 77.0-99.0 [facility] Comment on above: Performed By: #### L [id number] ####Business Systems Developer: MAL RAVIZU ([id number])[facility])[address] [place] [address] Platelet mean volume (Bld) [Entitic vol] 10.5 fL Normal 9.0-12.7 [facility] Comment on above: Performed By: #### L [id number] ####Business Systems Developer: MAL ARVIZU ([id number])[facility])[address] [place] [address] Platelets (Bld) [#/Vol] 309 10*3/uL Normal 140-440 [facility] Comment on above: Performed By: #### L [id number] ####Business Systems Developer: MAL ARVIZU ([id number])[facility])[address] [place] [address] RBC (Bld) [#/Vol] 4.69 10*6/uL Normal 3.80-5.20 [facility] Comment on above: Performed By: #### L [id number] ####Business Systems Developer: MAL ARVIZU ([id number])[facility] ([facility])[address] [place] [address] WBC (Bld) [#/Vol] 17.3 10*3/uL High 3.6-10.7 [facility] Comment on above: Performed By: #### L [id number] ####Business Systems Developer: MAL ARVIZU ([id number])[facility] ([facility])[address] [place] [address] CBC panel Auto (Bld)Ordered By: Susie Jones on 09-20-2024 Erythrocyte distribution width (RBC) [Ratio] 13.3 % 11.5 - 15.0 % [facility] Hematocrit (Bld) [Volume fraction] 43.4 % 35.0 - 47.0 % [facility] Hemoglobin (Bld) [Mass/Vol] 13.7 g/dL 11.7 - 16.0 g/dL [facility] Interpretation and review of laboratory results Abnormal [facility] MCH (RBC) [Entitic mass] 29.2 pg 26.0 - 34.0 pg [facility] MCHC (RBC) [Mass/Vol] 31.6 % 30.5 - 36.0 % [facility] MCV (RBC) [Entitic vol] 92.5 fL 77.0 - 99.0 fL [facility] Platelet mean volume (Bld) [Entitic vol] 10.5 fL 9.0 - 12.7 fL [facility] Platelets (Bld) [#/Vol] 309 10*3/uL 140 - 440 10*3/uL [facility] RBC (Bld) [#/Vol] 4.69 10*6/uL 3.80 - 5.2 0 10*6/uL [facility] WBC (Bld) [#/Vol] 17.3 10*3/uL High 3.6 - 10.7 10*3/uL [facility] ECG 12-LEADon 09-20-2024 ECG 12-LEAD IMPRESSION: Sinus rhythm Electronically Signed On 09-20-2024 10:45:51 EDT by Abdi Parisi Normal [facility] HEMOGLOBIN AND HEMATOCRIT, B LOODon 09-20-2024 Hematocrit (Bld) [Volume fraction] 43.7 % Normal 35.0-47.0 [facility] Comment on above: Performed By: #### L [id number] ####Business Systems Developer: MAL ARVIZU ([id number])[facility] ([facility])[address] [place] [address] Hemoglobin (Bld) [Mass/Vol] 14.2 g/dL Normal 11.7-16.0 [facility] Comment on above: Performed By: #### L AB753 ####Business Systems Developer: MAL ARVIZU ([id number])[facility] ([facility])[address] [place] [address] Hemoglobin (Bld) [Mass/Vol]o n 09-20-2024 Hematocrit (Bld) [Volume fraction] 43.7 % 35.0 - 47.0 % [facility] [place] Interpretation and review of laboratory results Normal [facility] Laboratory - Hematology and Cell countson 09-20-2024 Hemoglobin (Bld) [Mass/Vol] 14.2 g/dL 11.7 - 16.0 g/dL [employer] No Panel InformationOrdered By: Abdi Parisi on 09-20-2024 P [place] 40 degrees [employer] Work Phone: [place] Interval 142 ms [employer] Work Phone: QRS [place] 51 degrees [employer] Work Phone: QRSD Interval 86 ms [employer] Work Phone: QT Interval 350 ms [employer] Work Phone: QTC Interval 417 ms [employer] Work Phone: T Wave [place] 43 degrees [employer] Work Phone: [employer] Work Phone: No Panel Informationon 09-20 Sinus rhythm Electronically Signed On 09-20-2024 10:45:51 EDT by Abdi Parisi [facility], Abdi Winter MD - 09/20/2024 IMPRESSION: Sinus rhythm Electronically Signed On 09-20-2024 10:45:51 EDT by Abdi Parisi [facility] Nursing Noteon 09-20-2024 Nursing Note Patient family/visit or updated by RN at this time. Normal [facility] Nursing Note Pt declined Xanax at this time. Normal [facility] Op Noteon 09-20-2024 Op Note [facility] Cardiothoracic Surgery Operative Report [...] 12, 5) Surgeon: Lee Ann Perez MD Reception Clerk(s): NO Pacheco MD Anesthesia: General Estimated blood [...] and the o (more content not included)... Normal [facility] Op Note Date: 09/20/2024 Loca tion: [facility] OR Name: Fozia Breen, : 1960, Diagnosis Pre-op Diagnosis * Solitary pulmonary nodule [R91.1] Post-op Diagnosis * Solitary pulmonary nodule [R91.1] Procedures THORACOSCOPY WITH WEDGE RESECTION LEFT LOWER LOBE 56432 - [place] THORACOSCOPY W/DX WEDGE RESEXN ANATO LUNG RESEXN LOBECTOMY, LUNG, OPEN 64655 - [place] RMVL LUNG OTHER THAN PNEUMONECTOMY 1 LOBE [...] MD 09/20/24 1527 Description: level 10 Staff: Home Performance Consultant: Nina Arredondo RN; Jolly Arteaga RN Relief Home Performance Consultant: Pepe Cruz RN Scrub Person: Yamile Medina [...] Moises Pacheco MD PGY5, General Surgery Pager #[phone] [facility] Peripheral Blockon DARRYL Hopper RN - TRACK SUPERINTENDENT 09/20/2024 2:00 PM Peripheral Block Time Out: 09/20/2024 1:45 PM Patient location during procedure: Procedural Start time: 09/20/2024 1:45 PM End time: 09/20/2024 1:47 PM Reason for block: at surgeon's request and post-op pain management Staffing Performed: TRACK SUPERINTENDENT Anesthesiologist: Jorge Ortiz DO Resident/TRACK SUPERINTENDENT: Jani Mendoza APRN - ABEL Preanesthetic Checklist Completed: patient identified, IV checked, site marked, risks and benefits discussed, surgical consent, monitors and equipment checked, pre-op evaluation and timeout performed Region: [place] Primary: Serratus Anterior Peripheral Block Patient position: supine Prep: ChloraPrep Patient monitoring: heart rate, hydrographic engineer, continuous pulse ox and continuous capnometry O2: [...] Injection 10 mL - 09/20/2024 1:45:00 PM [facility] DARRYL Hopper RN - TRACK SUPERINTENDENT 09/20/2024 2:00 PM Peripheral Block Time Out: 09/20/2024 12:55 PM Patient location during procedure: pre-op Start time: 09/20/2024 12:55 PM End time: 09/20/2024 1:00 PM Reason for block: at surgeon's request and post-op pain management Staffing Performed: TRACK SUPERINTENDENT Anesthesiologist: Jorge Ortiz DO Resident/TRACK SUPERINTENDENT: Jani Mendoza APRN - ABEL Preanesthetic Checklist Completed: patient identified, IV checked, site marked, risks and benefits discussed, surgical consent, monitors and equipment checked, pre-op evaluation and timeout performed Region: Truncal Primary: Erector Spinae Peripheral Block Patient position: sitting Prep: ChloraPrep Patient monitoring: heart rate, hydrographic engineer and continuous pulse ox O2: Room air [...] 10 mL - 09/20/2024 12:55:00 PM [facility] Peripheral Nafisa 09-20-2024 BRAYAN Love - TRACK SUPERINTENDENT 09/20/2024 2:23 PM Peripheral IV Date/Time: 09/20/2024 1:50 PM Inserted by: Mariia Talavera APRN - TRACK SUPERINTENDENT Placement Needle size: 18 G Laterality: right Location: hand Local anesthetic: none Site prep: chlorhexidine Technique: anatomical landmarks Attempts: 1 [facility] Progress Noteon 09-20-2024 Progress Note Patient stable at th is time. Patient denies ringing in ears, numbness or tingling. Family at bedside. Normal [facility] Vital signsOrdered By: Bert coates [facility] on 09-20-2024 Heart rate 85 /min bpm [facility] Work Phone: XR CHEST 1 VIEWon 09-20-2024 [...] Electronically Signed Date/Time: 09/20/2024 5:23 PM EDT [facility] XR Chest Single viewon 09-20 1. Left thoracostomy tubes x2. 2. Findings which may represent bibasilar atelectasis, mild infiltrate(s) or postinflammatory change of uncertain etiology or chronicity. Report Dictated on Electronically Signed By: Jamal Dumont MD Electronically Signed Date/Time: 09/20/2024 5:23 PM EDT [facility] Patient Name: FOZIA BREEN : 1960 [...] pneumothorax. Degenerative change in the thoracic spine. [facility] Jamal Dumnot MD - 09/20/2024 Patient Name: FOZIA BREEN : 1960 Exam [...] Electronically Signed Date/Time: 09/20/2024 5:23 PM EDT [facility] Study observation (narrative) [facility] XR Chest Single viewOrdered By: Jamal Dumont on 09-20-2024 [facility] Work Phone: [phone] 09-13-2024 [id number] Medication List Accurate as of September 13, [...] hours prior to surgery. Please bring your [facility] Surgical folder with you day of surgery. [...] time and date. You may use the [facility] parking located at the main entrance on [address] and take the H elevator to the first floor for same day surgery. Take a left after exiting the elevator and check in at the desk. Or- You may use the parking in the Main deck. Take the level one bridge to the H building and follow the signs for same day surgery. Check in at the desk. Normal [facility] 36on 09-02-2024 36 Surg proc orders stacia avril. Benjamin Moffett, PROJECT MANAGEMENT DIRECTOR - LEAD FABRICATOR 09/02/24 Normal [facility] 6 Minute Walk Teston 08-31-2 025 6 Minute Walk Test [facility] Pulmonary Services/Neurology [address] [place] [address] MR#: [id number] Acct: [id number] Name: FOZIA BREEN Rep #: [id number] : 1960 63 From: Shivam Pryor DO Referring Dr: Angeline Lew LINING BASTER LINING BASTER-C Status: REG CLI Location: PSN Date: Sex: F C PSN 6 Minute Walk Test 6 Minute Walk Test 6 Minute Walk Test: 6 Minute Walk Test PSN:6-Minute Walk Test Start: 08/30/24 11:32 Freq: Status: Active Protocol: RESP.6MINW Document 08/30/24 11:32 YASSINE (Rec: 08/30/24 11:34 RANDALLENTON [id number]) 6 Minute Walk Test Date Performed 08/30/24 [...] Date Dictated: 08/31/24 1220 Date Transcribed: 08/31/241219 Pocket Creaser: Dr. Shivam Pryor DO Signed Normal [facility] Office Visiton 08-28-2024 Follow-up visit [id number] Suzette Breeni 1960 F Date Provider Department Center 08/28/2024 [id number], LEE ANN Fernandez [facility] None Family History Problem Relation Age of Onset Hypertension Mother Diabetes Mother Asthma Mother Ulcerative colitis Mother Arthritis Mother Coronary artery disease Father Heart attack Father Hypertension Father Heart disease Father Coronary artery disease Brother Heart disease Brother Hypertension Brother Heart attack Brother Family Status - Relation Status Age at Mother Father Brother Level of Service:[id number] [place] OFFICE/OUTPATIENT NEW HIGH MDM 60 MINUTES Reason for Visit and Comments: New Patient [542] Normal [facility] Progress Noteon 08-28-2024 Progress Note [facility] CARDIOVASCULAR & THORACIC SURGERY [address] [facility] [address] Dept: [phone] Dept Loc: [phone] Visit type: New Reason for Visit: PET [...] adult) Pulse 98 Ht 1.549 m (5' 1) Wt 80.7 kg (178 lb) BMI 33 (more content not included)... Normal [facility] Pulmonary Visit Reporton Pulmonary Visit Report [facility] Pulmonary Medicine of [address] [place] [address] OFFICE VISIT Date of Service: 08/17/24 MR#: [id number] Acct: [id number] Name: FOZIA BREEN Rep #: [id number] : 1960 Provider: LIZANDRO Lew Age/Sex: 63/F [place] [facility] Status: Signed Assessment and Plan Assessment and [...] realizes that she really needs to quit smoking. I have refilled a Chantix order. Orders: [...] 0RF Plan Details Follow Up: 6 Months ([facility]) HPI 2 wk fu Chief Complaint: Test [...] air Intake Visit Reasons: 2 wk fu Avionics Electrical Engineer Required: No Accompanied by: Self Allergies Penicillins [...] disease Hy (more content not included)... Normal [facility] Positron emission tomography scan reportOrdered By: Ady Servin on 08-09-2024 [address] Un[address] body region [facility] Imaging Services [address] [place] [address] PET/CT Tumor Base -Thigh Init MR#: [id number] Acct: [id number] Name: FOZIA BREEN Rep #: [id number] : 1960 F 63 From: Pet er Peer DO PCP: Dr. Emilie Wheatley MD Status: REG CLI Study:PET/CT Tumor Base -Thigh Init Date of E xam: 08/07/24 Exam# [id number] Ordering Dr: Mary Lew NP LINING BASTER-C EXAM: PET-CT skull base to mid thigh. [...] the left lower lobe peripherally. Reading Location: [facility]ER-[facility] CC: LINING BASTER-C Angeline Lew; Dr. Emilie Wheatley MD ~ Pocket Creaser: Signed [facility] PET/CT Tumor Base -Thigh Ini edgar 08-07-2024 PET/CT Tumor Base -Thigh Init [facility] Imaging Services [address] [place] [address] PET/CT Tumor Base -Thigh Init MR#: [id number] Acct: [id number] Name: FOZIA BREEN Rep #: [id number] : 1960 F 63 From: Ady Servin DO PCP: Dr. Emilie Wheatley MD Status: REG CLI Study: PET/CT Tumor Base -Thigh Init Date of Exam: Exam# [id number] Ordering Dr: Angeline Lew NP LINING BASTER-C EXAM: PET-CT skull base to mid thigh. [...] the left lower lobe peripherally. Reading Location: [employer] CC: LIZANDRO Lew; Dr. Emilie Wheatley MD Pocket Creaser: Signed Normal [facility] Pulmonary Visit Reporton Pulmonary Visit Report [facility] Medicine of [place] [address] [place] [address] OFFICE VISIT Date of Service: 07/30/24 MR#: [id number] Acct: [id number] Name: FOZIA BREEN Rep #: [id number] : 1960 Provider: LIZANDRO Lew Age/Sex: 63/F Location[place] [facility] [place] Status: Signed Assessment and Plan Assessment and [...] Additional Comments: This note was generated with Collab[employer]inder dictation software. It may contain incorrect words, spelling, and punctuation that were not noted in checking the note before signing. Thank you for the referral and the opportunity to participate in this patient's care. Follow Up: 2 Weeks ([facility]) HPI ABN LDCT Chief Complaint: Test results [...] that she believes is related to being 60 pounds overweight. She has seasonal allergies. She has an [...] patient reports that she was previously on allergy shots for 4 years. Ultimately, she was placed on an immune suppressant for her psoriatic arthritis and decided that she was not going to be on an immune suppressant and try to boost her immune system at the same time. Past medical family history is significant for: [...] room air Intake Visit Reasons: ABN LDCT Avionics Electrical Engineer Required: No Is patient in pain?: No Allergies Penicillins (PCN) Allergy (Severe, Verified 07/30/24 09:17) Hives codeine Allergy (Intermediate, Verified 07/30/24 09:17) Hives erythromycin base Allergy (Intermediate, Verified 07/30/24 09:17) Hives Medications ???Medication ???Instructions ???Recorded ???Confirmed ???Type acetaminophen 500 mg oral powder (more content not included)... Normal [facility] Breast imaging reportOrdered By: Cookie Vallejo on 07-25-[address] [facility] Imaging Services [address] [place] [address] DIAG MAMM W/CAD, UNILAT MR#: [id number] Acct: [id number] Name: FOZIA BREEN Rep #: [id number] : 1960 F 63 From: Kera Vallejo MD PCP: Dr. Emilie Wheatley MD Status: REG CLI Study:DIAG MAMM W/CAD, UNILAT Date of Exam: 07/25/24 Exam# [id number] Ordering Dr: Viktoria Rubi sa DO PROCEDURE: [...] central innerleft breast is marked with a [place] skin marker and this area is consistent [...] of the results by letter. Reading Location: [facility] CC: Dr. Emilie Wheatley MD; Dr. Chasity Rubi DO ~ Pocket Creaser: Signed [facility] DIAG MAMM W/CAD, UNILATon DIAG MAMM W/CAD, UNILAT [facility] Imaging Services [address] [place] [address] DIAG MAMM W/CAD, UNILAT MR#: [id number] Acct: [id number] Name: FOZIA BREEN Rep #: [id number] : 1960 F 63 From: Cookie Vallejo MD PCP: Dr. Emilie Wheatley MD Status: REG CLI Study: DIAG MAMM W/CAD, UNILAT Date of Exam: 07/25/24 Exam# [id number] Ordering Dr: Chasity Rubi DO PROCEDURE: DIAG [...] inner left breast is marked with a [place] skin marker and this area is consistent [...] of the results by letter. Reading Location: [facility] CC: Dr. Emilie Wheatley MD; Dr. Chasity Rubi DO Pocket Creaser: Signed Normal [facility] Breast imaging reportOrdered By: Cookie Vallejo on 07-18-[address] [facility] Imaging Services [address] [place], [place] [address] SCRN MAMM (CAD)W/ROSA ELENA BILAT MR#: [id number] Acct: [id number] Name: FOZIA BREEN Rep #: [id number] : 1960 F 63 From: Kera Vallejo MD PCP: Dr. Emilie Wheatley MD Status: REG CLI Study:SCRN MAMM (CAD)W/ROSA ELENA BILAT Date of Exa m: 07/18/24 Exam# [id number] Ordering Dr: Viktoria Rubi sa, DO PROCEDURE: [...] of the results by letter. Reading Location: [id number] CC: Dr. Emilie Wheatley MD; Dr. Chasity Rubi DO ~ Pocket Creaser: Signed [facility] Low Dose CT Lung Screeningon 07-18-[address] Lung Scre[address] [facility] Imaging Services [address] [place] [address] Lung Screening MR#: [id number] Acct: [id number] Name: FOZIA BREEN Rep #: [id number] : 1960 F 63 From: Jesu almonte MD PCP: Dr. Emilie Wheatley MD Status: REG CLI Study: Low Dose CT Lung Screening Date of Exam: 07/18 Exam# [id number] Ordering Dr: Chasity Rubi DO PROCEDURE: LOW [...] cancer) Electronical (more content not included)... Normal [facility] SCRN MAMM (CAD)W/ROSA ELENA BILATo n 07-18-2024 SCRN MAMM (CAD)W/ROSA ELENA BILAT [facility] Imaging Services [address] [place] [address] SCRN MAMM (CAD)W/ROSA ELENA BILAT MR#: [id number] Acct: [id number] Name: JAMSHIDFOZIA Rebecca Rep #: [id number] : 1960 F 63 From: Cookie Vallejo MD PCP: Dr. Emilie Wheatley MD Status: REG CLI Study: SCRN MAMM (CAD)W/ROSA ELENA BILAT Date of Exam: 07/07 07/03 Exam# [id number] Ordering Dr: Chasity Rubi DO PROCEDURE: SCRN [...] calcifications in the right breast. BI/SCRN MAMM (CAD)W/RSOA ELENA BILAT IMPRESSION: Asymmetry in the medial left breast at posterior depth visualized on the CC view requires further evaluation. Recommend diagnostic mammogram of the left breast, and ultrasound if indicated on the day of diagnostic. BI-RADS 0: INCOMPLETE - NEED ADDITIONAL IMAGING EVALUATION. Follow-up code: Additional Views obtained/call backs The patient will be notified of the results by letter. Reading Location: [facility] CC: Dr. Emilie Wheatley MD; Dr. Chasity Rubi DO Pocket Creaser: Signed Normal [facility] Quantiferon TB-Gold+on 06-09 QFT MITOGEN ROXY > 10.00 Normal . [facility] Comment on above: Performed By: #### L 100.0100, L500.4050, L3400.8000 #### [facility] [address] [place], [address] QFT NIL VALUE 0.04 IU/mL Normal . [facility] Comment on above: Performed By: #### L 100.0100, L500.4050, L3400.8000 #### [facility] [address] [place], [address] QFT TB GOLD+ Comment Normal . [facility] Comment on above: Result Comment: Chintan tiFERON-TB [...] By: #### L 100.0100, L500.4050, L3400.8000 #### [facility] [address] [place], [address] QFT TB POS CRIT Negative Normal Negative [facility] Comment on above: Result Comment: No r [...] interferon gamma. Chemiluminescence immunoassay methodology Performed at: [facility] [employer] [id number] [employer] Nurse: Haris Sheridan PhD, Phone: [phone] Performed By: #### L 100.0100, L500.4050, L3400.8000 #### [facility] [address] [place], [address] QFT TB1+ AG ROXY 0.05 IU/mL Normal . [facility] Comment on above: Performed By: #### L 100.0100, L500.4050, L3400.8000 #### [facility] [address] [place], [address] QFT TB2+ AG ROXY 0.05 IU/mL Normal . [facility] Comment on above: Performed By: #### L 100.0100, L500.4050, L3400.8000 #### [facility] [address] [place], [address] Absolute neutrophil countOrd ered By: [facility] Tere on 06-06-2024 Neutrophils (Bld) [#/Vol] 3.9 10*3/uL 2.0-7.7 [facility] Albumin to globulin ratioOrd ered By: [facility] on 06-06-2024 Albumin/Globulin [Mass ratio] 1.1 {ratio} 0.9-2.4 [facility] Basophil percentageOrdered B y: Maria A Carranza on 06-06-2024 Basophils/100 WBC (Bld) 0.7 % 0-1 [facility] Bilirubin, totalOrdered By: Maria Atammie Carranza on 06-06-2024 Bilirubin [Mass/Vol] 0.40 mg/dL 0.20-1.00 [facility] Comment on above: For patients on eltr ombopag therapy, use of Dimension [place] TBIL is not recommended. Blood urea nitrogen (BUN)/cr eatinine ratioOrdered By: Maria A Carranza on 06-06-2024 Urea nitrogen/Creatinine [Mass ratio] 20.4 mg/mg High 10- [facility] CBC W/Diff, Automatedon 05-10 Absolute Lymph 1.90 X10 3/uL Normal 0.83-4.51 [facility] Comment on above: Performed By: #### L 100.0100, L500.4050, L3400.8000 #### [facility] [address] [place], [address] Absolute Neut 3.9 X10 3/uL Normal 2.0-7.7 [facility] Comment on above: Performed By: #### L 100.0100, L500.4050, L3400.8000 #### [facility] [address] [place], [address] Basophils/100 WBC (Bld) 0.7 % Normal 0-1 [facility] Comment on above: Performed By: #### L 100.0100, L500.4050, L3400.8000 #### [facility] [address] [place], [address] Eosinophils/100 WBC (Bld) 2.8 % Normal 0-5 [facility] Comment on above: Performed By: #### L 100.0100, L500.4050, L3400.8000 #### [facility] [address] [place], [address] Erythrocyte distribution width (RBC) [Ratio] 13.8 % Normal 11.6-14.6 [facility] Comment on above: Performed By: #### L 100.0100, L500.4050, L3400.8000 #### [facility] [address] [place], [address] Hematocrit (Bld) [Volume fraction] 44.2 % Normal 37-47 [facility] Comment on above: Performed By: #### L 100.0100, L500.4050, L3400.8000 #### [facility] [address] [place], [address] Hemoglobin (Bld) [Mass/Vol] 14.3 g/dL Normal 12.0-15.0 [facility] Comment on above: Performed By: #### L 100.0100, L500.4050, L3400.8000 #### [facility] [address] [place], [address] IG% 0.300 Normal 0.0-0.9 [facility] Comment on above: Result Comment: IG% - Immature Granulocytes (promyelocytes, myelocytes and metamyelocytes) > 1% indicates that a LEFT SHIFT is Present. Performed By: #### L 100.0100, L500.4050, L3400.8000 #### [facility] [address] [place], [address] Lymphocytes/100 WBC (Bld) 28.4 % Normal 19-41 [facility] Comment on above: Performed By: #### L 100.0100, L500.4050, L3400.8000 #### [facility] [address] [place], [address] MCH (RBC) [Entitic mass] 29.9 pg Normal 27.0-32.0 [facility] Comment on above: Performed By: #### L 100.0100, L500.4050, L3400.8000 #### [facility] [address] [place], [address] MCHC (RBC) [Mass/Vol] 32.4 g/dL Normal 32-36 [facility] Comment on above: Performed By: #### L 100.0100, L500.4050, L3400.8000 #### [facility] [address] [place], [address] MCV (RBC) [Entitic vol] 92.3 fL Normal 81-99 [facility] Comment on above: Performed By: #### L 100.0100, L500.4050, L3400.8000 #### [facility] [address] [place], [address] Monocytes/100 WBC (Bld) 8.8 % Normal 0-10 [facility] Comment on above: Performed By: #### L 100.0100, L500.4050, L3400.8000 #### [facility] [address] [place], [address] Neutrophils/100 WBC (Bld) 59.0 % Normal 47-70 [facility] Comment on above: Performed By: #### L 100.0100, L500.4050, L3400.8000 #### [facility] [address] [place], [address] Nucleated RBC (Bld) [#/Vol] 0 10*3/uL Normal 0-5 [facility] Comment on above: Performed By: #### L 100.0100, L500.4050, L3400.8000 #### [facility] [address] [place], [address] Platelet mean volume (Bld) [Entitic vol] 11.1 fL Normal 6.2-12.0 [facility] Comment on above: Performed By: #### L 100.0100, L500.4050, L3400.8000 #### [facility] [address] [place], [address] Platelets (Bld) [#/Vol] 365 10*3/uL Normal 150-450 [facility] Comment on above: Performed By: #### L 100.0100, L500.4050, L3400.8000 #### [facility] [address] [place], [address] RBC (Bld) [#/Vol] 4.79 10*6/uL Normal 4.2-5.4 [facility] Comment on above: Performed By: #### L 100.0100, L500.4050, L3400.8000 #### [facility] [address] [place], [address] RDW SD 46.3 fl High 35.1-43.9 [facility] Comment on above: Performed By: #### L 100.0100, L500.4050, L3400.8000 #### [facility] [address] [place], [address] WBC (Bld) [#/Vol] 6.7 10*3/uL Normal 4.4-11.0 [facility] Comment on above: Performed By: #### L 100.0100, L500.4050, L3400.8000 #### [facility] [address] [place], [address] Carbon dioxide measurementOr dered By: Maria A Carranza on 06-06-2024 CO2 [Moles/Vol] 25.0 mmol/L 21.0-32.0 [facility] Chloride measurementOrdered By: Maria A Carranza on 06-06-2024 Chloride [Moles/Vol] 106 mmol/L 98-107 [facility] Comprehensive Metabolic Prof ilon 06-06-2024 Albumin [Mass/Vol] 3.7 g/dL Normal 3.2-5.0 [facility] Comment on above: Performed By: #### L 100.0100, L500.4050, L3400.8000 #### [facility] [address] [place], [address] Albumin/Globulin [Mass ratio] 1.1 {ratio} Normal 0.9-2.4 [facility] Comment on above: Performed By: #### L 100.0100, L500.4050, L3400.8000 #### [facility] [address] [place], [address] ALK P 152 U/L High 45-117 [facility] Comment on above: Performed By: #### L 100.0100, L500.4050, L3400.8000 #### [facility] [address] [place], [address] ALT [Catalytic activity/Vol] 26 U/L Normal 13-56 [facility] Comment on above: Performed By: #### L 100.0100, L500.4050, L3400.8000 #### [facility] [address] [place] [place], [address] AST [Catalytic activity/Vol] 16 U/L Normal 15-37 [facility] Comment on above: Performed By: #### L 100.0100, L500.4050, L3400.8000 #### [facility] [address] [place], [address] Bilirubin [Mass/Vol] 0.40 mg/dL Normal 0.20-1.00 [facility] Comment on above: Result Comment: For patients on eltrombopag therapy, use of Dimension [place] TBIL is not recommended. Performed By: #### L 100.0100, L500.4050, L3400.8000 #### [facility] [address] [place] [place], [address] BUN/CRE 20.4 RATIO High 10-20 [facility] Comment on above: Performed By: #### L 100.0100, L500.4050, L3400.8000 #### [facility] [address] [place], [address] CA,Total 9.8 mg/dL Normal 8.5-10.1 [facility] Comment on above: Performed By: #### L 100.0100, L500.4050, L3400.8000 #### [facility] [address] [place] [place], [address] Chloride [Moles/Vol] 106 mmol/L Normal 98-107 [facility] Comment on above: Performed By: #### L 100.0100, L500.4050, L3400.8000 #### [facility] [address] [place], [address] CO2 [Moles/Vol] 25.0 mmol/L Normal 21.0-32.0 [facility] Comment on above: Performed By: #### L 100.0100, L500.4050, L3400.8000 #### [facility] [address] [place], [address] Creatinine [Mass/Vol] 0.83 mg/dL Normal 0.55-1.02 [facility] Comment on above: Result Comment: The validity of the calculated GFR GFRAA in patients over 70 years has not been determined. Clinical correlation is essential. Performed By: #### L 100.0100, L500.4050, L3400.8000 #### [facility] [address] [place], [address] EST GFR - AA 89 mL/min Normal >60 [facility] Comment on above: Result Comment: Afri can German GFR Calc Performed By: #### L 100.0100, L500.4050, L3400.8000 #### [facility] [address] [place], [address] GAP 8 Normal 5-15 [facility] Comment on above: Performed By: #### L 100.0100, L500.4050, L3400.8000 #### [facility] [address] [place], [address] GFR/1.73 sq M.predicted among non-blacks MDRD (S/P/Bld) [Vol rate/Area] 74 mL/min/{1.73_m2} Normal >60 [facility] Comment on above: Result Comment: Non- GFR Calc Performed By: #### L 100.0100, L500.4050, L3400.8000 #### [facility] [address] [place], [address] Globulin (S) [Mass/Vol] 3.4 g/dL Normal 2.2-4.2 [facility] Comment on above: Performed By: #### L 100.0100, L500.4050, L3400.8000 #### [facility] [address] [place], [address] Glucose [Mass/Vol] 89 mg/dL Normal 74-106 [facility] Comment on above: Performed By: #### L 100.0100, L500.4050, L3400.8000 #### [facility] [address] [place], [address] Potassium [Moles/Vol] 4.7 mmol/L Normal 3.5-5.1 [facility] Comment on above: Performed By: #### L 100.0100, L500.4050, L3400.8000 #### [facility] [address] [place], [address] Sodium [Moles/Vol] 139 mmol/L Normal 136-145 [facility] Comment on above: Performed By: #### L 100.0100, L500.4050, L3400.8000 #### [facility] [address] [place], [address] T PROT 7.1 g/dL Normal 6.4-8.2 [facility] Comment on above: Performed By: #### L 100.0100, L500.4050, L3400.8000 #### [facility] [address] [place], [address] Urea nitrogen [Mass/Vol] 17 mg/dL Normal 7-18 [facility] Comment on above: Performed By: #### L 100.0100, L500.4050, L3400.8000 #### [facility] [address] [place], [address] Eosinophil percentageOrdered By: Maria A Carranza on 06-06-2024 Eosinophils/100 WBC (Bld) 2.8 % 0-5 [facility] Erythrocyte distribution wid th ratioOrdered By: Maria A Carranza on 06-06-2024 Erythrocyte distribution width (RBC) [Ratio] 13.8 % 11.6-14.6 [facility] Erythrocyte distribution wid th standard deviationOrdered By: Maria A Carranza on 06-06-2024 Erythrocyte distribution width (RBC) [Entitic vol] 46.3 fL High 35.1-43.9 [facility] Estimated glomerular filtrat ion rate (GFR) AmericanOrdered By: Maria A Carranza on 06-06-2024 Estimated GFR (MDRD) Amer 89 mL/min >60 [facility] Comment on above: GFR Calc Glomerular filtration rate ( GFR) estimationOrdered By: Maria A Carranza on 06-06-2024 Estimated GFR (MDRD) Non-Af Amer 74 mL/min >60 [facility] Comment on above: Non- GFR Calc Glucose measurementOrdered B y: Maria A Carranza on 06-06-2024 Glucose [Mass/Vol] 89 mg/dL 74-106 [facility] Hematocrit Auto (Bld) [Volum e fraction]Ordered By: Maria A Carranza on 06-06-2024 Hematocrit (Bld) [Volume fraction] 44.2 % 37-47 [facility] Hemoglobin measurementOrdere d By: Maria A Carranza on 06-06-2024 Hemoglobin (Bld) [Mass/Vol] 14.3 g/dL 12.0-15.0 [facility] Immature granulocytes/100 WB C Auto (Bld)Ordered By: Maria A Carranza on 06-06-2024 Immature granulocytes/100 WBC (Bld) 0.300 % 0.0-0.9 [facility] Comment on above: IG% - Immature Granu locytes (promyelocytes, myelocytes and metamyelocytes) > 1% indicates that a LEFT SHIFT is Present. Laboratory - Chemistry and C hemistry - challengeOrdered By: Maria A Carranza on 06-06-2024 AST [Catalytic activity/Vol] 16 U/L 15-37 [facility] Lymphocytes Auto (Unsp spec) [#/Vol]Ordered By: Maria A Carranza on 06-06-2024 Lymphocytes (Bld) [#/Vol] 1.90 10*3/uL 0.83-4.51 [facility] Lymphocytes/100 WBC Auto (Un sp spec)Ordered By: Maria A Carranza on 06-06-2024 Lymphocytes/100 WBC (Bld) 28.4 % 19-41 [facility] M. tuberculosis tuberculin s jm IFN-g Ql (Bld)Ordered By: Maria A Carranza on 06-06-2024 TB Test (QFT) Antigen 1 0.05 IU/mL . [facility] MCV (mean corpuscular volume ) determinationOrdered By: Maria A Carranza on 06-06-2024 MCV (RBC) [Entitic vol] 92.3 fL 81-99 [facility] Mean corpuscular hemoglobin (MCH) determinationOrdered By: Maria A Carranza on 06-06-2024 MCH (RBC) [Entitic mass] 29.9 pg 27.0-32.0 [facility] Mean corpuscular hemoglobin concentration (MCHC) determinationOrdered By: Maria A Carranza on 06-06-2024 MCHC (RBC) [Mass/Vol] 32.4 g/dL 32-36 [facility] Mean platelet volume determi nationOrdered By: Maria A Carranza on 06-06-2024 Platelet mean volume (Bld) [Entitic vol] 11.1 fL 6.2-12.0 [facility] Monocyte percentageOrdered B y: Maria A Carranza on 06-06-2024 Monocytes/100 WBC (Bld) 8.8 % 0-10 [facility] Neutrophil percentageOrdered By: Maria A Carranza on 06-06-2024 Neutrophils/100 WBC (Bld) 59.0 % 47-70 [facility] Nucleated red blood cell per centageOrdered By: Maria A Carranza on 06-06-2024 Nucleated RBC/100 WBC (Bld) [Ratio] 0 % 0-5 [facility] Platelet countOrdered By: Adalid Carranza on 06-06-2024 Platelets (Bld) [#/Vol] 365 10*3/uL 150-450 [facility] Potassium measurementOrdered By: Maria A Carranza on 06-06-2024 Potassium [Moles/Vol] 4.7 mmol/L 3.5-5.1 [facility] Quantiferon-TB Gold Plus tania tOrdered By: Maria A Carranza on 06-06-2024 TB Test (QFT) Comment . [facility] Comment on above: QuantiFERON-TB Gold Plus is [...] Test (QFT) Antigen 2 0.05 IU/mL . [facility] TB Test (QFT) Mitogen > 10.00 IU/mL . [facility] TB Test (QFT) Nil 0.04 IU/mL . [facility] TB Test (QFT) Positive Criteria Negative Negative [facility] Comment on above: No response to M [...] the productionof interferon gamma. Chemiluminescence immunoassaymethodologyPerformed at: [facility] [address] [id number] Director: Haris Sheridan PhD, Phone: [phone] RBC Auto (Bld) [#/Vol]Ordere d By: Maria A Carranza on 06-06-2024 RBC (Bld) [#/Vol] 4.79 10*6/uL 4.2-5.4 [facility] Serum anion gap measurementO rdered By: Maria A Carranza on 06-06-2024 Anion gap [Moles/Vol] 8 mmol/L 5-15 [facility] Serum globulin measurementOr dered By: Maria A Carranza on 06-06-2024 Globulin (S) [Mass/Vol] 3.4 g/dL 2.2-4.2 [facility] Serum or plasma alanine bennett otransferase (ALT) measurementOrdered By: Maria A Carranza on 06-06-2024 ALT [Catalytic activity/Vol] 26 U/L 13-56 [facility] Serum or plasma albumin kylah urement (mass/volume)Ordered By: Maria A Carranza on 06-06-2024 Albumin [Mass/Vol] 3.7 g/dL 3.2-5.0 [facility] Serum or plasma alkaline asmita sphatase measurementOrdered By: Maria A Carranza on 06-06-2024 ALP [Catalytic activity/Vol] 152 U/L High 45-117 [facility] Serum or plasma calcium kylah urement (mass/volume)Ordered By: Maria A Carranza on 06-06-2024 Calcium [Mass/Vol] 9.8 mg/dL 8.5-10.1 [facility] Serum or plasma creatinine m easurement (mass/volume)Ordered By: Maria A Carranza on 06-06-2024 Creatinine [Mass/Vol] 0.83 mg/dL 0.55-1.02 [facility] Comment on above: The validity of the calculated GFR & GFRAA in patients over 70 years has not been determined. Clinical correlation is essential. Serum or plasma urea nitroge n measurement (mass/volume)Ordered By: Maria A Carranza on 06-06-2024 Urea nitrogen [Mass/Vol] 17 mg/dL 7-18 [facility] Sodium levelOrdered By: Jing Carranza on 06-06-2024 Sodium [Moles/Vol] 139 mmol/L 136-145 [facility] Total proteinOrdered By: Jana Carranza on 06-06-2024 Protein [Mass/Vol] 7.1 g/dL 6.4-8.2 [facility] White blood cell (WBC) count Ordered By: Maria A Carranza on 06-06-2024 WBC (Bld) [#/Vol] 6.7 10*3/uL 4.4-11.0 [facility] PT D/C Summary (1)on [facility] PT D/C Summary (1) [facility] Physical [facility] [address] [place] [address] / REHABILITATION SERVICES DISCHARGE SUMMARY MR#: [id number] Acct: [id number] Name: FOZIA BREEN Rep #: [id number] : 1960 63 From: Andrea Garcia PT, Cert. T, OCS Referring Dr.: Dr. Maria A Carranza MD Status: R EG RCR Insurance: [employer] SELF PAY INSURANCE Discharge Summary D/C summary: [...] please feel free to call me at [phone]. Thank you for the referral of this patient. Sincerely, Andrea Garcia, PT, Cert MDT, OCS Balance/Gait/Functional tests Balance/Special Test Scores Lower Extremity Functional Score: 30 Improvement % Improvement: 20 04/17/24 1604 CC: Dr. Chasity Rubi DO; Dr. Maria A Carranza MD JLA Signed Normal [facility] Absolute neutrophil countOrd ered By: Maria A Carranza on 04-03-2024 Neutrophils (Bld) [#/Vol] 4.4 10*3/uL 2.0-7.7 [facility] Albumin to globulin ratioOrd ered By: Maria A Carranza on 04-03-2024 Albumin/Globulin [Mass ratio] 1.2 {ratio} 0.9-2.4 [facility] Basophil percentageOrdered B y: Maria A Carranza on 04-03-2024 Basophils/100 WBC (Bld) 0.9 % 0-1 [facility] Bilirubin, totalOrdered By: Maria A Carranza on 04-03-2024 Bilirubin [Mass/Vol] 0.40 mg/dL 0.20-1.00 [facility] Comment on above: For patients on eltr ombopag therapy, use of Dimension [place] TBIL is not recommended. Blood urea nitrogen (BUN)/cr eatinine ratioOrdered By: Maria A Carranza on 04-03-2024 Urea nitrogen/Creatinine [Mass ratio] 21.7 mg/mg High 10-20 [facility] CBC W/Diff, Automatedon 03-10 Absolute Lymph 1.75 X10 3/uL Normal 0.83-4.51 [facility] Comment on above: Performed By: #### L 500.4050, L100.0100 ####[facility] [address] [place], [address] Absolute Neut 4.4 X10 3/uL Normal 2.0-7.7 [facility] Comment on above: Performed By: #### L 500.4050, L100.0100 ####[facility] [address] [place], [address] Basophils/100 WBC (Bld) 0.9 % Normal 0-1 [facility] Comment on above: Performed By: #### L 500.4050, L100.0100 ####[facility] [address] [place], [address] Eosinophils/100 WBC (Bld) 3.4 % Normal 0-5 [facility] Comment on above: Performed By: #### L 500.4050, L100.0100 ####[facility] [address] [place], [address] Erythrocyte distribution width (RBC) [Ratio] 13.3 % Normal 11.6-14.6 [facility] Comment on above: Performed By: #### L 500.4050, L100.0100 ####[facility] [address] [place], [address] Hematocrit (Bld) [Volume fraction] 44.6 % Normal 37-47 [facility] Comment on above: Performed By: #### L 500.4050, L100.0100 ####[facility] [address] [place], [address] Hemoglobin (Bld) [Mass/Vol] 13.8 g/dL Normal 12.0-15.0 [facility] Comment on above: Performed By: #### L 500.4050, L100.0100 ####[facility] [address] [place], [address] IG% 0.300 Normal 0.0-0.9 [facility] Comment on above: Result Comment: IG% - Immature Granulocytes (promyelocytes, myelocytes and metamyelocytes) > 1% indicates that a LEFT SHIFT is Present. Performed By: #### L 500.4050, L100.0100 ####[facility] [address] [place], [address] Lymphocytes/100 WBC (Bld) 24.9 % Normal 19-41 [facility] Comment on above: Performed By: #### L 500.4050, L100.0100 ####[facility] [address] [place], [address] MCH (RBC) [Entitic mass] 29.2 pg Normal 27.0-32.0 [facility] Comment on above: Performed By: #### L 500.4050, L100.0100 ####[facility] [address] [place], [address] MCHC (RBC) [Mass/Vol] 30.9 g/dL Low 32-36 [facility] Comment on above: Performed By: #### L 500.4050, L100.0100 ####[facility] [address] [place], [address] MCV (RBC) [Entitic vol] 94.3 fL Normal 81-99 [facility] Comment on above: Performed By: #### L 500.4050, L100.0100 ####[facility] [address] [place], [address] Monocytes/100 WBC (Bld) 8.7 % Normal 0-10 [facility] Comment on above: Performed By: #### L 500.4050, L100.0100 ####[facility] [address] [place], [address] Neutrophils/100 WBC (Bld) 61.8 % Normal 47-70 [facility] Comment on above: Performed By: #### L 500.4050, L100.0100 ####[facility] [address] [place], [address] Nucleated RBC (Bld) [#/Vol] 0 10*3/uL Normal 0-5 [facility] Comment on above: Performed By: #### L 500.4050, L100.0100 ####[facility] [address] [place], [address] Platelet mean volume (Bld) [Entitic vol] 11.8 fL Normal 6.2-12.0 [facility] Comment on above: Performed By: #### L 500.4050, L100.0100 ####[facility] [address] [place], [address] Platelets (Bld) [#/Vol] 343 10*3/uL Normal 150-450 [facility] Comment on above: Performed By: #### L 500.4050, L100.0100 ####[facility] [address] [place], [address] RBC (Bld) [#/Vol] 4.73 10*6/uL Normal 4.2-5.4 [facility] Comment on above: Performed By: #### L 500.4050, L100.0100 ####[facility] [address] [place], [address] RDW SD 45.8 fl High 35.1-43.9 [facility] Comment on above: Performed By: #### L 500.4050, L100.0100 ####[facility] [address] [place], [address] WBC (Bld) [#/Vol] 7.0 10*3/uL Normal 4.4-11.0 [facility] Comment on above: Performed By: #### L 500.4050, L100.0100 ####[facility] [address] [place], [address] Carbon dioxide measurementOr dered By: Maria A Carranza on 04-03-2024 CO2 [Moles/Vol] 28.0 mmol/L 21.0-32.0 [facility] Chloride measurementOrdered By: Maria A Carranza on 04-03-2024 Chloride [Moles/Vol] 105 mmol/L 98-107 [facility] Comprehensive Metabolic Prof ilon 04-03-2024 Albumin [Mass/Vol] 3.9 g/dL Normal 3.2-5.0 [facility] Comment on above: Performed By: #### L 500.4050, L100.0100 ####[facility] [address] [place], [address] Albumin/Globulin [Mass ratio] 1.2 {ratio} Normal 0.9-2.4 [facility] Comment on above: Performed By: #### L 500.4050, L100.0100 ####[facility] [address] [place], [address] ALK P 154 U/L High 45-117 [facility] Comment on above: Performed By: #### L 500.4050, L100.0100 ####[facility] [address] [place], [address] ALT [Catalytic activity/Vol] 36 U/L Normal 13-56 [facility] Comment on above: Performed By: #### L 500.4050, L100.0100 ####[facility] [address] [place], [address] AST [Catalytic activity/Vol] 23 U/L Normal 15-37 [facility] Comment on above: Performed By: #### L 500.4050, L100.0100 ####[facility] [address] [place], [address] Bilirubin [Mass/Vol] 0.40 mg/dL Normal 0.20-1.00 [facility] Comment on above: Result Comment: For patients on eltrombopag therapy, use of Dimension [place] TBIL is not recommended. Performed By: #### L 500.4050, L100.0100 ####[facility] [address] [place], [address] BUN/CRE 21.7 RATIO High 10-20 [facility] Comment on above: Performed By: #### L 500.4050, L100.0100 ####[facility] [address] [place], [address] CA,Total 9.7 mg/dL Normal 8.5-10.1 [facility] Comment on above: Performed By: #### L 500.4050, L100.0100 ####[facility] [address] [place], [address] Chloride [Moles/Vol] 105 mmol/L Normal 98-107 [facility] Comment on above: Performed By: #### L 500.4050, L100.0100 ####[facility] [address] [place], [address] CO2 [Moles/Vol] 28.0 mmol/L Normal 21.0-32.0 [facility] Comment on above: Performed By: #### L 500.4050, L100.0100 ####[facility] [address] [place], [address] Creatinine [Mass/Vol] 0.78 mg/dL Normal 0.55-1.02 [facility] Comment on above: Result Comment: The validity of the calculated GFR GFRAA in patients over 70 years has not been determined. Clinical correlation is essential. Performed By: #### L 500.4050, L100.0100 ####[facility] [address] [place], [address] EST GFR - AA 96 mL/min Normal >60 [facility] Comment on above: Result Comment: Afri can German GFR Calc Performed By: #### L 500.4050, L100.0100 ####[facility] [address] [place], [address] GAP 7 Normal 5-15 [facility] Comment on above: Performed By: #### L 500.4050, L100.0100 ####[facility] [address] [place], [address] GFR/1.73 sq M.predicted among non-blacks MDRD (S/P/Bld) [Vol rate/Area] 79 mL/min/{1.73_m2} Normal >60 [facility] Comment on above: Result Comment: Non- GFR Calc Performed By: #### L 500.4050, L100.0100 ####[facility] [address] [place], [address] Globulin (S) [Mass/Vol] 3.2 g/dL Normal 2.2-4.2 [facility] Comment on above: Performed By: #### L 500.4050, L100.0100 ####[facility] [address] [place], [address] Glucose [Mass/Vol] 79 mg/dL Normal 74-106 [facility] Comment on above: Performed By: #### L 500.4050, L100.0100 ####[facility] [address] [place], [address] Potassium [Moles/Vol] 4.0 mmol/L Normal 3.5-5.1 [facility] Comment on above: Performed By: #### L 500.4050, L100.0100 ####[facility] [address] [place], [address] Sodium [Moles/Vol] 139 mmol/L Normal 136-145 [facility] Comment on above: Performed By: #### L 500.4050, L100.0100 ####[facility] [address] [place], [address] T PROT 7.1 g/dL Normal 6.4-8.2 [facility] Comment on above: Performed By: #### L 500.4050, L100.0100 ####[facility] [address] [place], [place], [address] Urea nitrogen [Mass/Vol] 17 mg/dL Normal 7-18 [facility] Comment on above: Performed By: #### L 500.4050, L100.0100 ####[facility] [address] [place], [address] Eosinophil percentageOrdered By: Maria A Carranza on 04-03-2024 Eosinophils/100 WBC (Bld) 3.4 % 0-5 [facility] Erythrocyte distribution wid th ratioOrdered By: Maria A Carranza on 04-03-2024 Erythrocyte distribution width (RBC) [Ratio] 13.3 % 11.6-14.6 [facility] Erythrocyte distribution wid th standard deviationOrdered By: Maria A Carranza on 04-03-2024 Erythrocyte distribution width (RBC) [Entitic vol] 45.8 fL High 35.1-43.9 [facility] Estimated glomerular filtrat ion rate (GFR) AmericanOrdered By: Maria A Carranza on 04-03-2024 Estimated GFR (MDRD) Amer 96 mL/min >60 [facility] Comment on above: GFR Calc Glomerular filtration rate ( GFR) estimationOrdered By: Maria A Carranza on 04-03-2024 Estimated GFR (MDRD) Non-Af Amer 79 mL/min >60 [facility] Comment on above: Non- GFR Calc Glucose measurementOrdered B y: Maria A Carranza on 04-03-2024 Glucose [Mass/Vol] 79 mg/dL 74-106 [facility] Hematocrit Auto (Bld) [Volum e fraction]Ordered By: Maria A Carranza on 04-03-2024 Hematocrit (Bld) [Volume fraction] 44.6 % 37-47 [facility] Hemoglobin measurementOrdere d By: Maria A Carranza on 04-03-2024 Hemoglobin (Bld) [Mass/Vol] 13.8 g/dL 12.0-15.0 [facility] Immature granulocytes/100 WB C Auto (Bld)Ordered By: Maria Atammie Carranza on 04-03-2024 Immature granulocytes/100 WBC (Bld) 0.300 % 0.0-0.9 [facility] Comment on above: IG% - Immature Granu locytes (promyelocytes, myelocytes and metamyelocytes) > 1% indicates that a LEFT SHIFT is Present. Laboratory - Chemistry and C hemistry - challengeOrdered By: Maria A Carranza on 04-03-2024 AST [Catalytic activity/Vol] 23 U/L 15-37 [facility] Lymphocytes Auto (Unsp spec) [#/Vol]Ordered By: [facility] Tere on 04-03-2024 Lymphocytes (Bld) [#/Vol] 1.75 10*3/uL 0.83-4.51 [facility] Lymphocytes/100 WBC Auto (Un sp spec)Ordered By: Maria Atammie Carranza on 04-03-2024 Lymphocytes/100 WBC (Bld) 24.9 % 19-41 [facility] MCV (mean corpuscular volume ) determinationOrdered By: Maria Atammie Carranza on 04-03-2024 MCV (RBC) [Entitic vol] 94.3 fL 81-99 [facility] Mean corpuscular hemoglobin (MCH) determinationOrdered By: Maria Atammie Carranza on 04-03-2024 MCH (RBC) [Entitic mass] 29.2 pg 27.0-32.0 [facility] Mean corpuscular hemoglobin concentration (MCHC) determinationOrdered By: Maria Atammie Carranza on 04-03-2024 MCHC (RBC) [Mass/Vol] 30.9 g/dL Low 32-36 [facility] Mean platelet volume determi nationOrdered By: [facility] Tere on 04-03-2024 Platelet mean volume (Bld) [Entitic vol] 11.8 fL 6.2-12.0 [facility] Monocyte percentageOrdered B y: Maria A Carranza on 04-03-2024 Monocytes/100 WBC (Bld) 8.7 % 0-10 [facility] Neutrophil percentageOrdered By: Maria A Carranza on 04-03-2024 Neutrophils/100 WBC (Bld) 61.8 % 47-70 [facility] Nucleated red blood cell per centageOrdered By: Maria A Carranza on 04-03-2024 Nucleated RBC/100 WBC (Bld) [Ratio] 0 % 0-5 [facility] Platelet countOrdered By: Adalid Carranza on 04-03-2024 Platelets (Bld) [#/Vol] 343 10*3/uL 150-450 [facility] Potassium measurementOrdered By: Maria A Carranza on 04-03-2024 Potassium [Moles/Vol] 4.0 mmol/L 3.5-5.1 [facility] RBC Auto (Bld) [#/Vol]Ordere d By: Maria A Carranza on 04-03-2024 RBC (Bld) [#/Vol] 4.73 10*6/uL 4.2-5.4 [facility] Serum anion gap measurementO rdered By: Maria A Carranza on 04-03-2024 Anion gap [Moles/Vol] 7 mmol/L 5-15 [facility] Serum globulin measurementOr dered By: Maria A Carranza on 04-03-2024 Globulin (S) [Mass/Vol] 3.2 g/dL 2.2-4.2 [facility] Serum or plasma alanine bennett otransferase (ALT) measurementOrdered By: Maria A Carranza on 04-03-2024 ALT [Catalytic activity/Vol] 36 U/L 13-56 [facility] Serum or plasma albumin kylah urement (mass/volume)Ordered By: Maria A Carranza on 04-03-2024 Albumin [Mass/Vol] 3.9 g/dL 3.2-5.0 [facility] Serum or plasma alkaline asmita sphatase measurementOrdered By: Maria A Carranza on 04-03-2024 ALP [Catalytic activity/Vol] 154 U/L High 45-117 [facility] Serum or plasma calcium kylah urement (mass/volume)Ordered By: Maria A Carranza on 04-03-2024 Calcium [Mass/Vol] 9.7 mg/dL 8.5-10.1 [facility] Serum or plasma creatinine m easurement (mass/volume)Ordered By: Maria A Carranza on 04-03-2024 Creatinine [Mass/Vol] 0.78 mg/dL 0.55-1.02 [facility] Comment on above: The validity of the calculated GFR & GFRAA in patients over 70 years has not been determined. Clinical correlation is essential. Serum or plasma urea nitroge n measurement (mass/volume)Ordered By: Maria A Carranza on 04-03-2024 Urea nitrogen [Mass/Vol] 17 mg/dL 7-18 [facility] Sodium levelOrdered By: Jing Carranza on 04-03-2024 Sodium [Moles/Vol] 139 mmol/L 136-145 [facility] Total proteinOrdered By: Jana Carranza on 04-03-2024 Protein [Mass/Vol] 7.1 g/dL 6.4-8.2 [facility] White blood cell (WBC) count Ordered By: Maria A Carranza on 04-03-2024 WBC (Bld) [#/Vol] 7.0 10*3/uL 4.4-11.0 [facility] Absolute lymphocyte countOrd ered By: Maria A Carranza on 08-05-2023 Lymphocytes Auto (Unsp spec) [#/Vol] 2.38 10*3/uL 0.83-4.51 [facility] Automated lymphocyte count a s percentage of total leukocytesOrdered By: Maria A Carranza on 08-05-2023 Lymphocytes/100 WBC Auto (Unsp spec) 30.4 % 19-41 [facility] Basophil percentageOrdered B y: Maria A Carranza on 08-05-2023 Basophil percentage < 10.0 IU/mL <15 [facility] Basophils/100 WBC (Bld) 0.8 % 0-1 [facility] Bilirubin [Mass/Vol] 0.30 mg/dL 0.20-1.00 [facility] Comment on above: For patients on eltr ombopag therapy, use of Dimension [place] TBIL is not recommended. Chloride [Moles/Vol] 108 mmol/L 98-107 [facility] Eosinophils/100 WBC (Bld) 4.0 % 0-5 [facility] Glucose [Mass/Vol] 89 mg/dL 74-106 [facility] Hemoglobin (Bld) [Mass/Vol] 13.9 g/dL 12.0-15.0 [facility] Monocytes/100 WBC (Bld) 7.2 % 0-10 [facility] Neutrophils (Bld) [#/Vol] 4.5 10*3/uL 2.0-7.7 [facility] Neutrophils/100 WBC (Bld) 57.2 % 47-70 [facility] Potassium [Moles/Vol] 3.6 mmol/L 3.5-5.1 [facility] Protein [Mass/Vol] 7.3 g/dL 6.4-8.2 [facility] Sodium [Moles/Vol] 141 mmol/L 136-145 [facility] WBC (Bld) [#/Vol] 7.8 10*3/uL 4.4-11.0 [facility] Determination of erythrocyte mean corpuscular volume (MCV)Ordered By: Maria A Carranza on 08-05-2023 MCV (RBC) [Entitic vol] 89.7 fL 81-99 [facility] Erythrocyte distribution wid th ratioOrdered By: Maria A Carranza on 08-05-2023 Erythrocyte distribution width (RBC) [Ratio] 13.2 % 11.6-14.6 [facility] Erythrocyte distribution wid th standard deviationOrdered By: Maria A Carranza on 08-05-2023 Erythrocyte distribution width (RBC) [Entitic vol] 43.4 fL 35.1-43.9 [facility] Erythrocyte sedimentation ra teOrdered By: Maria A Carranza on 08-05-2023 ESR (Bld) [Velocity] 14 mm/h 0-30 [facility] Hematocrit Auto (Bld) [Volum e fraction]Ordered By: Maria A Carranza on 08-05-2023 Hematocrit (Bld) [Volume fraction] 43.6 % 37-47 [facility] Immature granulocytes/100 WB C Auto (Bld)Ordered By: Maria A Carranza on 08-05-2023 Immature granulocytes/100 WBC (Bld) 0.400 % 0.0-0.9 [facility] Comment on above: IG% - Immature Granu locytes (promyelocytes, myelocytes and metamyelocytes) > 1% indicates that a LEFT SHIFT is Present. Laboratory - Chemistry and C hemistry - challengeOrdered By: Maria A Carranza on 08-05-2023 Albumin/Globulin [Mass ratio] 1.1 {ratio} 0.9-2.4 [facility] ALP [Catalytic activity/Vol] 149 U/L 45-117 [facility] ALT [Catalytic activity/Vol] 27 U/L 13-56 [facility] CO2 [Moles/Vol] 28.0 mmol/L 21.0-32.0 [facility] Globulin (S) [Mass/Vol] 3.4 g/dL 2.2-4.2 [facility] Urea nitrogen/Creatinine [Mass ratio] 20.6 mg/mg 10-20 [facility] Laboratory - Hematology and Cell countsOrdered By: Maria A Carranza on 08-05-2023 MCH (RBC) [Entitic mass] 28.6 pg 27.0-32.0 [facility] MCHC (RBC) [Mass/Vol] 31.9 g/dL 32-36 [facility] Nucleated RBC/100 WBC (Bld) [Ratio] 0 % 0-5 [facility] Platelet mean volume (Bld) [Entitic vol] 12.0 fL 6.2-12.0 [facility] Platelets (Bld) [#/Vol] 307 10*3/uL 150-450 [facility] No Panel InformationOrdered By: Maria A Carranza on 08-05-2023 Anti-Nuclear Antibody Screen Negative Negative [facility] Comment on above: Performed at: [facility] [employer] [address] [id number] Director: Haris Sheridan PhD, Phone: [phone] C-Reactive Protein Extended Range 3.53 mg/L 0.0-3.0 [facility] Comment on above: C-Reactive Protein ( CRP) provides useful information for thediagnosis, therapy and monitoring of inflammatory processesand associated diseases. For the evaluation of Relative Riskfor Cardiovascular Disease, a High Sensitivity CRP (HSCRP)should be ordered. Estimated GFR (MDRD) Amer 71 mL/min >60 [facility] Comment on above: GFR Calc Estimated GFR (MDRD) Non-Af Amer 59 mL/min >60 [facility] Comment on above: Non- GFR Calc Hepatitis B Surface Antigen Non-Reactive Nonreactive [facility] Hepatitis C Antibody Non-Reactive Nonreactive [facility] Comment on above: Non Reactive: < 0.8 Equivocal: >/= 0.8 to < 1.0 Reactive: >/= 1.0The CDC requires that a reactive/equivocal HCV antibody result be sent out for confirmation. HCV Quant by PCR testing. RBC Auto (Bld) [#/Vol]Ordere d By: Maria A Carranza on 08-05-2023 RBC (Bld) [#/Vol] 4.86 10*6/uL 4.2-5.4 [facility] Serum cyclic citrullinated p eptide IgG antibody assay (units/volume)Ordered By: Maria A Carranza on 08-05-2023 Cyclic citrullinated peptide IgG Qn 2 units 0-19 [facility] Comment on above: Negative <20 Weak po sitive 20 - 39 Moderate positive 40 - 59 Strong positive >59Performed at: [facility] [employer] [id number] Director: Haris Sheridan PhD, Phone: [phone] Serum hepatitis B virus surf meka antibody IgG detectionOrdered By: Maria A Carranza on 08-05-2023 HBV surface IgG Ql (S) Non-Reactive [facility] Comment on above: Non Reactive: Incons istent with immunity less than <10 mIU/mL Reactive: Consistent with immunity greater than or equal to 10 mIU/mL Serum or plasma calcium kylah urement (mass/volume)Ordered By: Maria A Carranza on 08-05-2023 Calcium [Mass/Vol] 9.1 mg/dL 8.5-10.1 [facility] Serum or plasma creatinine m easurement (mass/volume)Ordered By: Maria A Carranza on 08-05-2023 Creatinine [Mass/Vol] 1.02 mg/dL 0.55-1.02 [facility] Comment on above: The validity of the calculated GFR & GFRAA in patients over 70 years has not been determined. Clinical correlation is essential. Serum or plasma urea nitroge n measurement (mass/volume)Ordered By: Maria A Carranza on 08-05-2023 Urea nitrogen [Mass/Vol] 21 mg/dL 7-18 [facility] Thin prep Papanicolaou smear with manual screeningOrdered By: Maria A Carranza on 08-05-2023 Thin prep Papanicolaou smear with manual screening 3.9 g/dL 3.2-5.0 [facility] Thin prep Papanicolaou smear with manual screening 17 U/L 15-37 [facility] Thin prep Papanicolaou smear with manual screening 5 5-15 [facility] Absolute lymphocyte countOrd ered By: Emilie Medranopalomo on 04-20-2023 Lymphocytes Auto (Unsp spec) [#/Vol] 1.83 10*3/uL 0.83-4.51 [facility] Basophil percentageOrdered B y: Emilieivonne Wheatley on 04-20-2023 Basophils/100 WBC (Bld) 0.9 % 0-1 [facility] Bilirubin [Mass/Vol] 0.40 mg/dL 0.20-1.00 [facility] Comment on above: For patients on eltr ombopag therapy, use of Dimension [place] TBIL is not recommended. Chloride [Moles/Vol] 108 mmol/L 98-107 [facility] Cholesterol [Mass/Vol] 196 mg/dL <200 [facility] Comment on above: <200 mg/dL Desirable 200-240 mg/dL Borderline >240 mg/dL High Risk Eosinophils/100 WBC (Bld) 2.9 % 0-5 [facility] Glucose [Mass/Vol] 90 mg/dL 74-106 [facility] Neutrophils (Bld) [#/Vol] 5.0 10*3/uL 2.0-7.7 [facility] Neutrophils/100 WBC (Bld) 64.6 % 47-70 [facility] Potassium [Moles/Vol] 4.5 mmol/L 3.5-5.1 [facility] Protein [Mass/Vol] 7.4 g/dL 6.4-8.2 [facility] Sodium [Moles/Vol] 141 mmol/L 136-145 [facility] Triglyceride [Mass/Vol] 117 mg/dL <199 [facility] Comment on above: The drugs N-Acetylcy steine and Metamizole may falsely depress this assay.Serum Triglycerides Reference Interval Normal <150 mg/dL Borderline high 150 - 199 mg/dL High 200 - 499 mg/dL Very High > or = 500 mg/dL WBC (Bld) [#/Vol] 7.8 10*3/uL 4.4-11.0 [facility] Blood erythrocytes count (nu mber/volume)Ordered By: Emilie Wheatley on 04-20-2023 RBC (Bld) [#/Vol] 5.01 10*6/uL 4.2-5.4 [facility] Blood hemoglobin measurement (mass/volume)Ordered By: Emilie Wheatley on 04-20-2023 Hemoglobin (Bld) [Mass/Vol] 14.2 g/dL 12.0-15.0 [facility] Blood lymphocytes/100 leukoc ytesOrdered By: Emilie Wheatley on 04-20-2023 Lymphocytes/100 WBC (Bld) 23.5 % 19-41 [facility] Blood monocytes/100 leukocyt esOrdered By: Emilie Wheatley on 04-20-2023 Monocytes/100 WBC (Bld) 7.7 % 0-10 [facility] Blood platelet mean volumeOr dered By: Emilie Wheatley on 04-20-2023 Platelet mean volume (Bld) [Entitic vol] 11.7 fL 6.2-12.0 [facility] Determination of erythrocyte mean corpuscular volume (MCV)Ordered By: Emilie Wheatley on 04-20-2023 MCV (RBC) [Entitic vol] 92.0 fL 81-99 [facility] Hematocrit Auto (Bld) [Volum e fraction]Ordered By: Emilie Wheatley on 04-20-2023 Hematocrit (Bld) [Volume fraction] 46.1 % 37-47 [facility] Laboratory - Chemistry and C hemistry - challengeOrdered By: Emilie Wheatley on 04-20-2023 ALP [Catalytic activity/Vol] 138 U/L 45-117 [facility] ALT [Catalytic activity/Vol] 23 U/L 13-56 [facility] CO2 [Moles/Vol] 26.0 mmol/L 21.0-32.0 [facility] Free T4 [Mass/Vol] 1.05 ng/dL 0.76-1.46 [facility] Globulin (S) [Mass/Vol] 3.4 g/dL 2.2-4.2 [facility] Urea nitrogen/Creatinine [Mass ratio] 19.2 mg/mg 10-20 [facility] Laboratory - Hematology and Cell countsOrdered By: Emilie Wheatley on 04-20-2023 Erythrocyte distribution width (RBC) [Entitic vol] 44.3 fL 35.1-43.9 [facility] Erythrocyte distribution width (RBC) [Ratio] 13.1 % 11.6-14.6 [facility] Immature granulocytes/100 WBC (Bld) 0.400 % 0.0-0.9 [facility] Comment on above: IG% - Immature Granu locytes (promyelocytes, myelocytes and metamyelocytes) > 1% indicates that a LEFT SHIFT is Present. MCH (RBC) [Entitic mass] 28.3 pg 27.0-32.0 [facility] Nucleated RBC/100 WBC (Bld) [Ratio] 0 % 0-5 [facility] MCHC Auto (RBC) [Mass/Vol]Or dered By: Emilie Wheatley on 04-20-2023 MCHC (RBC) [Mass/Vol] 30.8 g/dL 32-36 [facility] No Panel InformationOrdered By: Emilie Wheatley on 04-20-2023 Estimated GFR (MDRD) Amer 90 mL/min >60 [facility] Comment on above: GFR Calc Estimated GFR (MDRD) Non-Af Amer 74 mL/min >60 [facility] Comment on above: Non- GFR Calc Thyroid Stimulating Hormone (TSH) 3.92 uIU/mL 0.358-3.74 [facility] Vitamin D 25-Hydroxy 28.6 ng/mL [facility] Comment on above: Vitamin D 25(OH) Sta tus Range Deficiency <20 ng/mL (50nmol/L) Insufficiency 20 - 30 ng/mL (50 - 75 nmol/L) Sufficiency 30 - 100 ng/mL (75 - 250 nmol/L) Toxicity >100 ng/mL (>250 nmol/L) Platelets bldOrdered By: Moises Wheatley on 04-20-2023 Platelets (Bld) [#/Vol] 331 10*3/uL 150-450 [facility] Serum or plasma albumin kylah urement (mass/volume)Ordered By: Emilie Wheatley on 04-20-2023 Albumin [Mass/Vol] 4.0 g/dL 3.2-5.0 [facility] Serum or plasma albumin/glob ulin mass ratioOrdered By: Emilie Wheatley on 04-20-2023 Albumin/Globulin [Mass ratio] 1.2 {ratio} 0.9-2.4 [facility] Serum or plasma calcium kylah urement (mass/volume)Ordered By: Emilie Wheatley on 04-20-2023 Calcium [Mass/Vol] 9.3 mg/dL 8.5-10.1 [facility] Serum or plasma cholesterol in HDL measurement (mass/volume)Ordered By: Emilie Wheatley on 04-20-2023 Cholesterol in HDL [Mass/Vol] 53 mg/dL >40 [facility] Comment on above: The drugs N-Acetylcy steine and Metamizole may falsely depress this assay. Reference Range HDL <40 mg/dL Low HDL Cholesterol HDL >or= 60 mg/dL High HDL Cholesterol Serum or plasma cholesterol in VLDL measurement (mass/volume)Ordered By: Emilie Wheatley on 04-20-2023 Cholesterol in VLDL [Mass/Vol] 23 mg/dL 5-40 [facility] Serum or plasma creatinine m easurement (mass/volume)Ordered By: Emilie Wheatley on 04-20-2023 Creatinine [Mass/Vol] 0.83 mg/dL 0.55-1.02 [facility] Comment on above: The validity of the calculated GFR & GFRAA in patients over 70 years has not been determined. Clinical correlation is essential. Serum or plasma low density lipoprotein (LDL) cholesterol measurement (mass/volume)Ordered By: Emilie Wheatley on 04-20-2023 Cholesterol in LDL [Mass/Vol] 120 mg/dL 0-130 [facility] Serum or plasma urea nitroge n measurement (mass/volume)Ordered By: Emilie Wheatley on 04-20-2023 Urea nitrogen [Mass/Vol] 16 mg/dL 7-18 [facility] Thin prep Papanicolaou smear with manual screeningOrdered By: Emilie Wheatley 04-20-2023 Thin prep Papanicolaou smear with manual screening 17 U/L 15-37 [facility] Thin prep Papanicolaou smear with manual screening 7 5-15 [facility] Absolute lymphocyte counton 03-23-2022 Lymphocytes Auto (Unsp spec) [#/Vol] 2.32 10*3/uL 0.83-4.51 [facility] Work Phone: Basophil percentageon 2021 Basophils/100 WBC (Bld) 0.6 % 0-1 [facility] Work Phone: Bilirubin [Mass/Vol] 0.40 mg/dL 0.20-1.00 [facility] Work Phone: Comment on above: For patients on eltr ombopag therapy, use of Dimension [place] TBIL is not recommended. Chloride [Moles/Vol] 109 mmol/L 98-107 [facility] Work Phone: Cholesterol [Mass/Vol] 188 mg/dL <200 [facility] Work Phone: Comment on above: <200 mg/dL Desirable 200-240 mg/dL Borderline >240 mg/dL High Risk Eosinophils/100 WBC (Bld) 3.1 % 0-5 [facility] Work Phone: [phone] Glucose [Mass/Vol] 89 mg/dL 74-106 [facility] Work Phone: [phone] Neutrophils (Bld) [#/Vol] 4.6 10*3/uL 2.0-7.7 [facility] Work Phone: [phone] Neutrophils/100 WBC (Bld) 58.9 % 47-70 [facility] Work Phone: [phone] Potassium [Moles/Vol] 4.5 mmol/L 3.5-5.1 [facility] Work Phone: [phone] Protein [Mass/Vol] 7.1 g/dL 6.4-8.2 [facility] Work Phone: [phone] Sodium [Moles/Vol] 141 mmol/L 136-145 [facility] Work Phone: Triglyceride [Mass/Vol] 89 mg/dL <199 [facility] Work Phone: Comment on above: The drugs N-Acetylcy steine and Metamizole may falsely depress this assay.Serum Triglycerides Reference Interval Normal <150 mg/dL Borderline high 150 - 199 mg/dL High 200 - 499 mg/dL Very High > or = 500 mg/dL WBC (Bld) [#/Vol] 7.8 10*3/uL 4.4-11.0 [facility] Work Phone: Blood erythrocytes count (nu mber/volume)on 03-23-2022 RBC (Bld) [#/Vol] 4.74 10*6/uL 4.2-5.4 [facility] Work Phone: Blood hemoglobin measurement (mass/volume)on 03-23-2022 Hemoglobin (Bld) [Mass/Vol] 13.9 g/dL 12.0-15.0 [facility] Work Phone: Blood lymphocytes/100 leukoc yteson 03-23-2022 Lymphocytes/100 WBC (Bld) 29.7 % 19-41 [facility] Work Phone: Blood monocytes/100 leukocyt eson 03-23-2022 Monocytes/100 WBC (Bld) 7.4 % 0-10 [facility] Work Phone: Blood platelet mean volumeon 03-23-2022 Platelet mean volume (Bld) [Entitic vol] 11.6 fL 6.2-12.0 [facility] Work Phone: Determination of erythrocyte mean corpuscular volume (MCV)on 03-23-2022 MCV (RBC) [Entitic vol] 91.4 fL 81-99 [facility] Work Phone: Hematocrit Auto (Bld) [Volum e fraction]on 03-23-2022 Hematocrit (Bld) [Volume fraction] 43.3 % 37-47 [facility] Work Phone: Laboratory - Chemistry and C hemistry - challengeon 03-23-2022 ALP [Catalytic activity/Vol] 121 U/L 45-117 [facility] Work Phone: ALT [Catalytic activity/Vol] 28 U/L 13-56 [facility] Work Phone: CO2 [Moles/Vol] 26.0 mmol/L 21.0-32.0 [facility] Work Phone: Free T4 [Mass/Vol] 1.03 ng/dL 0.76-1.46 [facility] Work Phone: Globulin (S) [Mass/Vol] 3.2 g/dL 2.2-4.2 [facility] Work Phone: Urea nitrogen/Creatinine [Mass ratio] 16.3 mg/mg 10-20 [facility] Work Phone: Laboratory - Hematology and Cell countson 03-23-2022 Erythrocyte distribution width (RBC) [Entitic vol] 45.7 fL 35.1-43.9 [facility] Work Phone: Erythrocyte distribution width (RBC) [Ratio] 13.4 % 11.6-14.6 [facility] Work Phone: Immature granulocytes/100 WBC (Bld) 0.300 % 0.0-0.9 [facility] Work Phone: Comment on above: IG% - Immature Granu locytes (promyelocytes, myelocytes and metamyelocytes) > 1% indicates that a LEFT SHIFT is Present. MCH (RBC) [Entitic mass] 29.3 pg 27.0-32.0 [facility] Work Phone: Nucleated RBC/100 WBC (Bld) [Ratio] 0 % 0-5 [facility] Work Phone: MCHC Auto (RBC) [Mass/Vol]on 03-23-2022 MCHC (RBC) [Mass/Vol] 32.1 g/dL 32-36 [facility] Work Phone: No Panel Informationon 03-23 Estimated GFR (MDRD) Amer 104 mL/min >60 [facility] Work Phone: Comment on above: GFR Calc Estimated GFR (MDRD) Non-Af Amer 86 mL/min >60 [facility] Work Phone: Comment on above: Non- GFR Calc Free Triiodothyronine (T3) pg/dL 2.4 pg/mL 2.18-3.98 [facility] Work Phone: Thyroid Stimulating Hormone (TSH) 2.84 uIU/mL 0.358-3.74 [facility] Work Phone: Vitamin D 25-Hydroxy 49.9 ng/mL [facility] Work Phone: Comment on above: Vitamin D 25(OH) Sta tus Range Deficiency <20 ng/mL (50nmol/L) Insufficiency 20 - 30 ng/mL (50 - 75 nmol/L) Sufficiency 30 - 100 ng/mL (75 - 250 nmol/L) Toxicity >100 ng/mL (>250 nmol/L) Platelets bldon 03-23-2022 Platelets (Bld) [#/Vol] 343 10*3/uL 150-450 [facility] Work Phone: Serum or plasma albumin kylah urement (mass/volume)on 03-23-2022 Albumin [Mass/Vol] 3.9 g/dL 3.2-5.0 [facility] Work Phone: Serum or plasma albumin/glob ulin mass ratioon 03-23-2022 Albumin/Globulin [Mass ratio] 1.2 {ratio} 0.9-2.4 [facility] Work Phone: Serum or plasma calcium kylah urement (mass/volume)on 03-23-2022 Calcium [Mass/Vol] 9.2 mg/dL 8.5-10.1 [facility] Work Phone: Serum or plasma cholesterol in HDL measurement (mass/volume)on 03-23-2022 Cholesterol in HDL [Mass/Vol] 51 mg/dL >40 [facility] Work Phone: Comment on above: The drugs N-Acetylcy steine and Metamizole may falsely depress this assay. Reference Range HDL <40 mg/dL Low HDL Cholesterol HDL >or= 60 mg/dL High HDL Cholesterol Serum or plasma cholesterol in VLDL measurement (mass/volume)on 03-23-2022 Cholesterol in VLDL [Mass/Vol] 18 mg/dL 5-40 [facility] Work Phone: Serum or plasma creatinine m easurement (mass/volume)on 03-23-2022 Creatinine [Mass/Vol] 0.74 mg/dL 0.55-1.02 [facility] Work Phone: Comment on above: The validity of the calculated GFR & GFRAA in patients over 70 years has not been determined. Clinical correlation is essential. Serum or plasma low density lipoprotein (LDL) cholesterol measurement (mass/volume)on 03-23-2022 Cholesterol in LDL [Mass/Vol] 119 mg/dL 0-130 [facility] Work Phone: Serum or plasma urea nitroge n measurement (mass/volume)on 03-23-2022 Urea nitrogen [Mass/Vol] 12 mg/dL 7-18 [facility] Work Phone: Thin prep Papanicolaou smear with manual screeningon 03-23-2022 Thin prep Papanicolaou smear with manual screening 19 U/L 15-37 [facility] Work Phone: Thin prep Papanicolaou smear with manual screening 6 5-15 [facility] Work Phone: CNOVon 12-27-2021 CNOV Office Visit (UCWSTR ) -- FOZIA BREEN ([id number]) 1960 F Date Time Provider Department 12/27/21 8:30 AM TAMARA GRAFF [facility] During your visit today, we recorded the [...] Discussed expected course of illness Tamara Graff APRN.LEAD FABRICATOR Beginning Home Isolation Isolation is used to [...] to your local emergency facility: Notify the joy operator that you are seeking care for [...] Fever- Fe (more content not included)... Normal [facility] Influenza virus A and B RNA and SARS-CoV-2 (COVID-19) N gene panel ANGI+probe (Resp)on 12-27-2021 FLUAV RNA ANGI+probe Ql (Unsp spec) Negative Normal Negative for Influenza A by RT-PCR [facility] Comment on above: Order Comment: Speci men Type: SWAB OF INTERNAL NOSE Ordering Facility: [facility] Address: [address] [place] [address] Performed By: #### 9 5422-2 #### [facility] CLIA [id number] [address] [place] [address] [place] FLUBV RNA ANGI+probe Ql (Unsp spec) Negative Normal Negative for Influenza B by RT-PCR [facility] Comment on above: Order Comment: Speci men Type: SWAB OF INTERNAL NOSE Ordering Facility: [facility] Address: [address] [place] [address] Performed By: #### 9 5422-2 #### [facility] CLIA [id number] [address] [place] [address] [place] SARS-CoV-2 (COVID-19) RNA ANGI+probe Ql (Resp) SARS-CoV-2 (Agent of COVID-19) Detected by RT-PCR or equivalent method. Abnormal Not Detected [facility] Comment on above: Order Comment: Speci men Type: SWAB OF INTERNAL NOSE Ordering Facility: [facility] Address: [address] [place] [address] Result Comment: grant s [id number] ([employer])_EUA This test was developed and its performance characteristics determined by [facility]'s [facility] [place]. This test has been authorized by FDA under an Emergency Use Authorization (EUA). This test has been validated in accordance with the FDA's Guidance Document Policy for Diagnostics Testing in Laboratories Certified to Perform High Complexity Testing under CLIA prior to Emergency use Authorization for Coronavirus Disease 2019 during the Public Health Emergency issued on July 07, 2019. Test performed by [facility], [facility] [place], [address] [place] [address]. Performed By: #### 9 5422-2 #### [facility] CLIA [id number] [address] [place], [place] [address] [place] [address] [place] Vital Signs Date Time Vital Sign Value Performing Clinician Facility 11-07-2024 08:33-0400 Body height 154.[address] Chasity Rubi DO Work Phone: [facility] 11-07-2024 08:33-0400 Body mass index (BMI) [Ratio] 35.6 kg/m2 Dr. Chasity Rubi DO Work Phone: [facility] 11-07-2024 08:33-0400 Body temperature 97 [degF] Dr. Chasity Rubi DO Work Phone: [facility] 11-07-2024 08:33-0400 Body weight 85.[address] Chasity Rubi DO Work Phone: [facility] 11-07-2024 08:33-0400 Diastolic blood pressure 87 mm[Hg] Dr. Chasity Rubi DO Work Phone: [facility] 11-07-2024 08:33-0400 Heart rate 104 /min Dr. Chasity Rubi DO Work Phone: [facility] 11-07-2024 08:33-0400 Respiratory rate 18 /min Dr. Chasity Rubi DO Work Phone: [facility] 11-07-2024 08:33-0400 SaO2% (BldA) [Mass fraction] 95 % Dr. Chasity Rubi DO Work Phone: [facility] 11-07-2024 08:33-0400 Systolic blood pressure 137 mm[Hg] Dr. Chasity Rubi DO Work Phone: [facility] 10-09-2024 09:51-0400 Diastolic blood pressure 93 mm[Hg] Lala Hester CNP Work Phone: [facility] [place] 10-09-2024 09:51-0400 Heart rate 87 /min Lala Janet PROJECT MANAGEMENT DIRECTOR - LEAD FABRICATOR Work Phone: [facility] [place] 10-09-2024 09:51-0400 Systolic blood pressure 140 mm[Hg] Lala Janet PROJECT MANAGEMENT DIRECTOR - LEAD FABRICATOR Work Phone: [facility] [place] 10-09-2024 09:49-0400 Body height 154.9 cm Lala Janet PROJECT MANAGEMENT DIRECTOR - LEAD FABRICATOR Work Phone: [facility] [place] 10-09-2024 09:49-0400 Body mass index (BMI) [Ratio] 34.58 kg/m2 aLla Gonzales PROJECT MANAGEMENT DIRECTOR - LEAD FABRICATOR Work Phone: [facility] [place] 10-09-2024 09:49-0400 Body weight 83.01 kg Lala Janet PROJECT MANAGEMENT DIRECTOR - LEAD FABRICATOR Work Phone: [facility] [place] 09-25-2024 07:23-0400 Body temperature 97.11 [degF] Lee Ann Perez MD Work Phone: [facility] [place] 09-25-2024 07:23-0400 Diastolic blood pressure 90 mm[Hg] Lee Ann Perez MD Work Phone: [facility] [place] 09-25-2024 07:23-0400 Heart rate 94 /min Lee Ann Perez MD Work Phone: [facility] [place] 09-25-2024 07:23-0400 Respiratory rate 16 /min Lee Ann Perez MD Work Phone: [facility] [place] 09-25-2024 07:23-0400 SaO2% (BldA) [Mass fraction] 96 % Lee Ann Perez MD Work Phone: [facility] [place] 09-25-2024 07:23-0400 Systolic blood pressure 142 mm[Hg] Lee Ann Perez MD Work Phone: [facility] [place] 09-25-2024 05:14-0400 Body mass index (BMI) [Ratio] 34.54 kg/m2 Lee Ann Perez MD Work Phone: [facility] 09-25-2024 05:14-0400 Body weight 82.92 kg Lee Ann Perez MD Work Phone: [facility] 08-30-2024 11:32-0400 Body height 154.[address] Chasity Rubi DO Work Phone: [facility] 08-30-2024 11:32-0400 Body weight 80.[address] Chasity Rubi DO Work Phone: [facility] 08-30-2024 11:32-0400 Heart rate 94 /min Dr. Chasity Rubi DO Work Phone: [facility] 08-30-2024 11:32-0400 SaO2% (BldA) [Mass fraction] 95 % Dr. Chasity Rubi DO Work Phone: [facility] 08-28-2024 10:35-0400 Body height 154.9 cm Lee Ann Perez MD Work Phone: [facility] 08-28-2024 10:35-0400 Body mass index (BMI) [Ratio] 33.63 kg/m2 Lee Ann Perez MD Work Phone: [facility] 08-28-2024 10:35-0400 Body weight 80.74 kg Lee Ann Perez MD Work Phone: [facility] 08-28-2024 10:35-0400 Diastolic blood pressure 90 mm[Hg] Lee Ann Perez MD Work Phone: [facility] 08-28-2024 10:35-0400 Heart rate 98 /min Lee Ann Perez MD Work Phone: [facility] 08-28-2024 10:35-0400 Systolic blood pressure 136 mm[Hg] Lee Ann Perez MD Work Phone: [facility] 08-17-2024 07:43-0400 Body mass index (BMI) [Ratio] 33.6 kg/m2 Dr. Chasity Rubi DO Work Phone: [facility] 08-17-2024 07:43-0400 Body temperature 97.1 [degF] Dr. Chasity Rubi DO Work Phone: [facility] 08-17-2024 07:43-0400 Body weight 80.[address] Chasity Rubi DO Work Phone: [facility] 08-17-2024 07:43-0400 Diastolic blood pressure 73 mm[Hg] Dr. Chasity Rubi DO Work Phone: [facility] 08-17-2024 07:43-0400 Heart rate 83 /min Dr. Chasity Rubi DO Work Phone: [facility] 08-17-2024 07:43-0400 Respiratory rate 18 /min Dr. Chasity Rubi DO Work Phone: [facility] 08-17-2024 07:43-0400 SaO2% (BldA) [Mass fraction] 96 % Dr. Chasity Rubi DO Work Phone: [facility] 08-17-2024 07:43-0400 Systolic blood pressure 130 mm[Hg] Dr. Chasity Rubi DO Work Phone: [facility] 07-30-2024 09:11-0400 Body height 154.[address] Chasity Rubi DO Work Phone: [facility] 07-30-2024 09:11-0400 Body mass index (BMI) [Ratio] 33.7 kg/m2 Dr. Chasity Rubi DO Work Phone: [facility] 07-30-2024 09:11-0400 Body temperature 97.5 [degF] Dr. Chasity Rubi DO Work Phone: [facility] 07-30-2024 09:11-0400 Body weight 80.[address] Chasity Rubi DO Work Phone: [facility] 07-30-2024 09:11-0400 Diastolic blood pressure 77 mm[Hg] Dr. Chasity Rubi DO Work Phone: [facility] 07-30-2024 09:11-0400 Heart rate 100 /min Dr. Chasity Rubi DO Work Phone: [facility] 07-30-2024 09:11-0400 Respiratory rate 16 /min Dr. Chasity Rubi DO Work Phone: [facility] 07-30-2024 09:11-0400 SaO2% (BldA) [Mass fraction] 97 % Dr. Chasity Rubi DO Work Phone: [facility] 07-30-2024 09:11-0400 Systolic blood pressure 126 mm[Hg] Dr. Chasity Rubi DO Work Phone: [facility] 12-27-2021 08:52-0400 Body temperature 101.8 [degF] Tamara Praisler-Wood PROJECT MANAGEMENT DIRECTOR.LEAD FABRICATOR Work Phone: [facility] 12-27-2021 08:52-0400 Body weight 77.66 kg Tamara Praisler-Wood PROJECT MANAGEMENT DIRECTOR.LEAD FABRICATOR Work Phone: [facility] 12-27-2021 08:52-0400 Diastolic blood pressure 82 mm[Hg] Tamara Praisler-Wood PROJECT MANAGEMENT DIRECTOR.LEAD FABRICATOR Work Phone: [facility] 12-27-2021 08:52-0400 Heart rate 127 /min Tamara Praisler-Wood PROJECT MANAGEMENT DIRECTOR.LEAD FABRICATOR Work Phone: [facility] 12-27-2021 08:52-0400 Respiratory rate 20 /min Tamara Praisler-Wood PROJECT MANAGEMENT DIRECTOR.LEAD FABRICATOR Work Phone: [facility] 12-27-2021 08:52-0400 SaO2% (BldA) [Mass fraction] 95 % Tamara Praisler-Wood PROJECT MANAGEMENT DIRECTOR.LEAD FABRICATOR Work Phone: [facility] 12-27-2021 08:52-0400 Systolic blood pressure 130 mm[Hg] Tamara Praisler-Wood PROJECT MANAGEMENT DIRECTOR.LEAD FABRICATOR Work Phone: [facility] Encounters Encounter Date Encounter Type Care Provider Facility Start: 04-03-2025 ambulatory [facility] Facility: [facility] Start: 04-02-2025 ambulatory [facility] Facility: [facility] Start: 03-14-2025 End: 03-15-2025 Telephone encounter Lala Gonzales ALICE Hester CNP Work Phone: [facility] Central Scheduling Comment on above: Other (Central sched uling ) Start: 03-14-2025 ambulatory [facility] Facility :[facility] Start: 02-06-[address] Emilie Whealtey MD -Laboratory [place] Work Phone: Start: 02-06-2025 End: 02-06-2025 ambulatory [facility] Facility:[facility] Start: 01-30-2025 End: 01-30-[address] Emilie Wheatley MD Work Phone: -[facility] [place] Start: 01-30-2025 End: 01-30-[address] Emilie Wheatley MD -[facility] [place] Work Phone: Start: 01-30-2025 End: 01-30-2025 ambulatory [facility] Facility:[facility] Start: 01-15-2025 End: 01-15-[address] Emilie Wheatley MD Work Phone: -[facility] [place] Start: 01-15-2025 End: 01-15-[address] Maria A Carranza MD -Labor[facility] [place] Work Phone: Start: 01-15-2025 End: 01-15-2025 ambulatory [facility] Facility:[facility] Start: 11-27-2024 End: 11-27-[address] Emilie Wheatley MD Work Phone: -[facility] [place] Start: 11-27-2024 End: 11-27-[address] Maria A Carranza MD -Labor[facility] [place] Work Phone: Start: 11-27-2024 End: 11-27-2024 ambulatory Emilie Wheatley Facility:[facility] Start: 11-07-2024 End: 11-07-2024 Patient encounter procedure Angeline Lew LINING BASTERKacieC -[facility] Work Phone: Start: 11-07-2024 End: 11-07-[address] Chasity Rubi DO Work Phone: -[facility] Start: 10-11-2024 End: 10-12-2024 Telephone encounter Lee Ann Perez MD Work Phone: [facility] Comment on above: Procedure Start: 10-09-2024 End: 10-09-2024 Postop follow up visit related to original px Lala Gonzales APRN - LEAD FABRICATOR Work Phone: [facility] Comment on above: Adenocarcinoma (HCC) (Primary Dx); Pulmonary nodule Start: 10-09-2024 End: 10-09-2024 ambulatory LALA GONZALES [facility] Start: 09-20-2024 End: 09-20-2024 Evaluation and management of inpatient Mariia Talavera APRN - TRACK SUPERINTENDENT Work Phone: [facility] MAIN OR Start: 09-20-2024 End: 09-25-2024 Evaluation and management of inpatient Lee Ann Perez MD Work Phone: [facility] Surgical Progressive Care Unit PCU H6 Comment on above: Lung nodule (Primary Dx); Solitary pulmonary nodule Start: 09-13-2024 End: 09-13-2024 ambulatory LEE ANN PEREZ [facility] Start: 09-02-2024 End: 09-02-2024 Admission to same day surgery center Benjamin Moffett APRN - LEAD FABRICATOR Work Phone: [facility] Thoracic Surgery Kacie Curtis Comment on above: Lung nodule (Primary Dx) Start: 09-02-2024 End: 09-02-2024 ambulatory Benjamin Moffett APRN - LEAD FABRICATOR Work Phone: [facility] Start: 08-31-2024 ambulatory Sihvam Pryor Facility:[facility] Start: 08-31-2024 Non-patient / Non-visit Dr. Shivam cervantes DO -[facility] Start: 08-31-2024 End: 08-31-2024 Patient encounter procedure Angeline Lew LINING BASTER-C -Pulmonary Services/Neurology Work Phone: Start: 08-30-2024 End: 09-02-2024 Telephone encounter Lee Ann Perez MD Work Phone: [facility] Thor[facility] Comment on above: Surgery Scheduling Start: 08-30-2024 End: 08-31-[address] Chasity Rubi DO Work Phone: [facility] Work Phone: Start: 08-30-2024 End: 08-30-2024 Patient encounter procedure Angeline Lew NP-C -Pulmonary Services/Neurology Work Phone: Start: 08-30-2024 End: 08-30-2024 ambulatory Angeline Lew NP Facility:[facility] Start: 08-28-2024 End: 08-28-2024 Office outpatient new 60 minutes Lee Ann Perez MD Work Phone: [facility] Thor[facility] Comment on above: Pulmonary nodule (Pr imary Dx); Rheumatoid arthritis, involving unspecified site, unspecified whether rheumatoid factor present (HCC) Start: 08-28-2024 End: 08-28-2024 ambulatory LEE ANN PEREZ [facility] Start: 08-28-2024 ambulatory Maria A Tere Facility :[facility] Start: 08-17-2024 End: 08-17-2024 Patient encounter procedure Angeline Lew LINING BASTER-C -[facility] Work Phone: Start: 08-17-2024 End: 08-17-2024 ambulatory Emilie Wheatley Facility:[facility] Start: 08-07-2024 End: 08-07-[address] Chasity Rubi DO Work Phone: [facility] Work Phone: Start: 08-07-2024 End: 08-07-2024 Patient encounter procedure Angeline BONE -[facility] Start: 08-07-2024 End: 08-07-2024 ambulatory [facility] Facility:[facility] Start: 07-30-2024 End: 07-30-2024 Patient encounter procedure Angeline BONE -[facility] Work Phone: Start: 07-30-2024 End: 07-30-2024 ambulatory [facility] Facility:[facility] Start: 07-25-2024 End: 07-25-[address] Chasity Rubi DO Work Phone: [facility] Work Phone: Start: 07-25-2024 End: 07-25-[address] Chasity Rubi DO -Outpatient Breast Imaging Work Phone: Start: 07-25-2024 End: 07-25-2024 ambulatory [facility] Facility:[facility] Start: 07-18-2024 End: 07-18-[address] Chasity Rubi DO Work Phone: [facility] Work Phone: Start: 07-18-2024 End: 07-18-[address] Chasity Rubi DO -Cat Scan, [facility] Work Phone: Start: 07-18-2024 End: 07-18-2024 ambulatory [facility] Facility:[facility] Start: 06-06-2024 End: 06-06-[address] Maria A Carranza MD -Laboratory, [place] Work Phone: Start: 06-06-2024 End: 06-06-[facility] Start: 04-10-2024 End: 04-10-2024 [facility] Start: 04-10-2024 End: 04-10-[address] Maria A Carranza MD -Physical Therapy Work Phone: Start: 04-03-2024 End: 04-03-[address] Maria A Carranza MD -Laboratory, [place] Work Phone: Start: 04-03-2024 End: 04-03-2024 ambulatory Chasity Rubi Facility:[facility] Start: 08-05-2023 End: 08-05-2023 ambulatory [facility] Work Phone: Start: 08-05-2023 End: 08-05-2023 Patient encounter procedure [facility]-Laboratory, [place] Work Phone: Start: 04-20-2023 End: 04-20-2023 ambulatory [facility] Work Phone: Start: 04-20-2023 End: 04-20-2023 Patient encounter procedure [facility]-Laboratory, [place] Start: 03-30-2022 End: 03-30-2022 ambulatory [facility] Work Phone: Start: 03-30-2022 End: 03-30-2022 Patient encounter procedure [facility]-Cat Scan, [facility] Start: 03-23-2022 End: 03-23-2022 ambulatory [facility] Work Phone: Start: 03-23-2022 End: 03-23-2022 Patient encounter procedure [facility]-Laboratory, Sujey Jordan [facility] Start: 12-27-2021 End: 12-27-2021 Patient encounter procedure Tamara Graff APRN.[facility] Work Phone: [facility] Comment on above: Suspected COVID-19 v irus infection (Primary Dx) Procedures Date Procedure Procedure Detail Performing Clinician Start: 02-06-[address] Emilie sullivan MD Work Phone: Comment on above: According to the National Academy of Cli nical Biochemistry,the reference interval for Thyroglobulin (TG) should berelated to euthyroid patients and not for patients whounderwent thyroidectomy. TG reference intervals for thesepatients depend on the residual mass of the thyroid tissueleft after surgery. Establishing a post-operative baselineis recommended. The assay limit of quantitation is 0.1ng/mLThyroglobulin measured by [employer] ImmunometricAssayPerformed at: [facility] [id number] [place], [place] [id number] Director: Haris Sheridan PhD, Phone: [phone] Start: 02-06-[address] Ivonne Wheatley MD Work Phone: Comment on above: Thyroglobulin Antibody measured by [employer] an CoulterMethodologyIt should be noted that the presence of thyroglobulinantibodies may not be pathogenic nor diagnostic, especiallyat very low levels. The assay interior design consultant has found thatfour percent of individuals without evidence of thyroiddisease or autoimmunity will have positive TgAb levels upto 4 IU/mL. Start: 01-30-2025 Vitamin D, 25-hydroxy measurement Dr. Ike Wheatley MD Work Phone: Comment on above: Vitamin D StatusDeficiency: <20 ng/mL (5 0nmol/L)Insufficiency: 20-30 ng/mL (50-75 nmol/L)Sufficiency: 30-100 ng/mL (75-250 nmol/L)Toxicity: >100 ng/mL (>250 nmol/L) Start: 09-25-2024 Radiologic exam chest single view Aneil A Promise Pacheco MD Work Phone: Start: 09-24-2024 Radiologic exam chest single view Aneil A Promise Pacheco MD Work Phone: Start: 09-24-2024 Radiologic exam chest single view Aneil A Promise Pacheco MD Work Phone: Start: 09-24-2024 Basic metabolic panel calcium total Aneil A Promise Pacheco MD Work Phone: Start: 09-23-2024 Radiologic exam chest single view Aneil A Promise Pacheco MD Work Phone: Start: 09-23-2024 Basic metabolic panel calcium total Aneil A Promise Pacheco MD Work Phone: Start: 09-22-2024 Radiologic exam chest single view Aneil A Promise Pacheco MD Work Phone: Start: 09-22-2024 Basic metabolic panel calcium total Aneil A Promise Pacheco MD Work Phone: Start: 09-21-2024 Radiologic exam chest single view Vivianail Rebecca Promise Pacheco MD Work Phone: Start: 09-21-2024 Basic metabolic panel calcium total Aneil A Promise Pacheco MD Work Phone: Start: 09-20-2024 Basic metabolic panel calcium total Aneil A Promise Pacheco MD Work Phone: Start: 09-20-2024 Radiologic exam chest single view Aneil Rebecca Promise Pacheco MD Work Phone: Start: 09-20-2024 ANESTHESIA PERIPHERAL IV PLACEMENT Mariia Talavera PROJECT MANAGEMENT DIRECTOR - TRACK SUPERINTENDENT Work Phone: Start: 09-20-2024 ANESTHESIA ARTERIAL LINE PLACEMENT Shon Mendoza PROJECT MANAGEMENT DIRECTOR - TRACK SUPERINTENDENT Work Phone: Start: 09-20-2024 [place] AN ELECTIVE ENDOTRACHEAL AIRWAY Mariia Talavera PROJECT MANAGEMENT DIRECTOR - TRACK SUPERINTENDENT Work Phone: Start: 09-20-2024 End: 09-20-2024 Thoracoscopy w/dx wedge resexn anato lung resexn Lee Ann Perez MD Work Phone: Start: 09-20-2024 End: 09-20-2024 Peripheral block anesthesia Jani manuel PROJECT MANAGEMENT DIRECTOR - TRACK SUPERINTENDENT Work Phone: Start: 09-20-2024 Antibody screen LEE ANN PEREZ Comment on above: Performed By: #### [id number] ####Medical Di royal: MAL ARVIZU ([id number])[facility] ([address] Start: 09-20-2024 ABO and Rh group [Type] in Blood by Confirmatory method Sofi Aguilar PROJECT MANAGEMENT DIRECTOR - LEAD FABRICATOR Work Phone: Start: 09-20-2024 Blood count hematocrit Sofi Aguilar APRN - LEAD FABRICATOR Work Phone: Start: 09-20-2024 Blood typing serologic abo Sofi Guido huyen PROJECT MANAGEMENT DIRECTOR - LEAD FABRICATOR Work Phone: Start: 09-20-2024 Ecg routine ecg w/least 12 lds trcg only w/o i&r Sofi Aguilar PROJECT MANAGEMENT DIRECTOR - LEAD FABRICATOR Work Phone: Start: 08-07-2024 Positron emission tomography with computed tomography Dr. Chasity Rubi DO Work Phone: Start: 07-25-[address] Chasity Rubi DO Work Phone: Start: 07-18-2024 End: 07-18-[address] Chasity Rubi DO Work Phone: Start: 07-18-[address] Chasity Rubi DO Work Phone: Start: 08-05-2023 Pelvis X-ray Start: 03-30-2022 Screening mammography Start: 03-30-2022 CT of chest Plan of Treatment Date Care Activity Detail Author Start: 2037 RSV Immunization for Adults (1 - 1-dose 75+ series) RSV Immunization for Adults (1 - 1-dose 75+ series) [facility] Start: 07-18-2025 Screening for malignant neoplasm of breast Mammogram [facility] Start: 04-10-2025 End: 10-09-2025 CT Chest WO contrast CT chest wo IV contrast Imaging Routine Adenocarcinoma (HCC) Expected: 04/10/2025, Expires: 10/09/2025 [facility] Work Phone: Comment on above: Expected: 04/10/2025 , Expires: 10/09/2025 Start: 02-06-2025 Procedure [place] [facility] Start: 01-07-2025 COVID-19 Vaccine ( season) COVID-19 Vaccine ( season) [facility] Start: 01-07-2025 Influenza vaccination [facility] Start: 10-09-2024 End: 10-09-2024 Patient encounter procedure 10/09/2024 10:00 AM EDT Office Visit [facility] Cardiovascular Thoracic Surgery - [address] [place] [phone] Lala Gonzales, PROJECT MANAGEMENT DIRECTOR - LEAD FABRICATOR [address] [id number] [facility] Cardiovascular Thoracic Surgery - [place] Start: 09-20-2024 End: 09-20-2024 Admission to same day surgery center 09/20/2024 12:00 PM EDT - 09/20/2024 4:00 PM EDT Surgery [facility] MAIN OR [address] [place] [address] Lee Ann Perez MD [address] [address] THORACOSCOPY WITH WEDGE RESECTION LEFT LOWER LOBE [69551 (CPT )] [facility] MAIN OR Comment on above: THORACOSCOPY WITH WE DGE RESECTION LEFT LOWER LOBE [68801 (CPT )] Start: 09-20-2024 End: 09-20-2024 Rmvl lung other than pneumonectomy 1 lobe lobect LOBECTOMY, LUNG, OPEN Solitary pulmonary nodule 09/20/2024 12:00 PM EDT [facility] Operating Room Start: 09-20-2024 Subsequent hospital visit by physician 09/20/2024 12:00 PM EDT Hospital Encounter [facility] OR [address] [place] [phone] Lee Ann Perez MD [address] [address] [facility] OR Start: 09-20-2024 End: 09-20-2024 Thoracoscopy w/dx wedge resexn anato lung resexn THORACOSCOPY WITH WEDGE RESECTION Solitary pulmonary nodule 09/20/2024 12:00 PM EDT [facility] Operating [facility] Start: 09-13-2024 End: 09-13-2024 [facility] 09/13/2024 10:30 AM EDT Pre-Admission Testing [facility] Pre-Admit Testing [address] [place] [address] Lee Ann Perez MD [address] [id number] [facility] Pre-Admit Testing Start: 08-17-2024 Patient referral [facility] Work Phone: Start: 01-08-2024 COVID-19 Vaccine ( season) COVID-19 Vaccine ( season) [facility] Start: 2022 RSV Immunization for Adults (1 - Risk 60-74 years 1-dose series) RSV Immunization for Adults (1 - Risk 60-74 years 1-dose series) [facility] Start: 01-07-2022 Influenza vaccination INFLUENZA (#1) [facility] Start: 12-27-2021 End: 01-10-2022 Influenza virus A and B RNA and SARS-CoV-2 (COVID-19) N gene panel - Respiratory specimen by ANGI with probe detection COVID WITH FLUA+B, ROUTINE Microbiology Routine Suspected COVID-19 virus infection Expected: 12/27/2021, Expires: 01/10/2022 [facility] Work Phone: Comment on above: Expected: 12/27/2021 , Expires: 01/10/2022 Start: 2012 Pneumococcal Vaccine : 50+ Years (1 of 1 - PCV) Pneumococcal Vaccine: 50+ Years (1 of 1 - PCV) [facility] Start: 2012 Screening for malignant neoplasm of lung Lung Cancer Screening [facility] Start: 2012 SHINGRIX VACCINE (1 of 2) SHINGRIX VACCINE (1 of 2) [facility] Start: 2012 Zoster Vaccines (1 o f 2) Zoster Vaccines (1 of 2) [facility] Start: 12-24-2007 COLOGUARD (FIT-DNA) COLOGUARD (FIT-D NA) [facility] Start: 12-24-2007 Colonoscopy COLONOSCOPY [facility] Start: 12-24-2007 COLORECTAL CANCER SCREENING COLORECTAL CANCER SCREENING [facility] Start: 12-24-[address] COLONOGRAPHY [facility] Start: 12-24-2007 DIABETES SCREEN DIABETES SCREEN [facility] Start: 12-24-2007 FECAL OCCULT BLOOD FECAL OCCULT BLOO D [facility] Start: 12-24-2007 LIPID SCREEN LIPID SCREEN [facility] Start: 12-24-2007 SIGMOIDOSCOPY SIGMOIDOSCOPY [facility] Start: 2002 Mammography MAMMOGRAM [facility] Start: 2002 Screening for malignant neoplasm of breast Mammogram [facility] Start: 1992 HPV TESTING HPV TESTING [facility] Start: 1992 Screening for malignant neoplasm of cervix [facility] Start: 12-24-1983 PAP TESTING PAP TESTING [facility] Start: 12-24-1983 Screening for malignant neoplasm of cervix Pap Smear [facility] Start: 1981 DTaP/Tdap/Td Vaccine s (1 - Tdap) DTaP/Tdap/Td Vaccines (1 - Tdap) [facility] Start: 1981 Pneumococcal Vaccine : 50+ Years (1 of 2 - PCV) Pneumococcal Vaccine: 50+ Years (1 of 2 - PCV) [facility] Start: 1981 Urine microalbumin profile DTAP,TDAP,TD (1 - Tdap) [facility] Start: 1980 Diabetes mellitus screening Diabetes Screening [facility] Start: 1980 HEPATITIS C SCREENING HEPATITIS C [facility] Start: 1980 Hepatitis C screening Hepatitis C [facility] Start: 1980 HIV SCREENING HIV SCREENING [facility] Start: 1974 Adult depression screening assessment DEPRESSION SCREENING [facility] Start: 1968 PNEUMOCOCCAL (1 - PCV) PNEUMOCOCCAL (1 - PCV) [facility] Start: 12-24-1963 MMR Vaccines (1 of 1 - Standard series) MMR Vaccines (1 of 1 - Standard series) [facility] Start: 06-25-1963 COVID-19 VACCINE (#1) COVID-19 VACCI NE (#1) [facility] Start: 1962 HEPATITIS B (1 of 3 - 3-dose series) HEPATITIS B (1 of 3 - 3-dose series) [facility] Start: 1962 HIV screening HIV Screening [facility] Start: 1962 Lipid panel Lipid Panel [facility] Start: 1962 Screening for malignant neoplasm of colon [facility] CT Chest WO contrast [facility] Patient referral [facility] Work Phone: Positron emission tomography with computed tomography [facility] Tissue exam [facility] Work Phone: Comment on above: Release Upon Ayana sorto for 1 Occurrences starting 09/20/2024, 1 completed Payers Date Payer Category Payer Self-pay [id number] 2024 Self-pay [id number] 2021 Private Health Insurance [employer] Mary LOZA OAP [id number] 2021-Present [phone] [address] [place] [address] Open Access [id number] 2020 Commercial Managed C are - HMO [employer] [id number] 2020 Private Health Insurance [id number] Private Health Insurance [employer] [id number] Unknown [id number] Unknown [facility] [id number] Unknown [id number]. 2.462 Unknown [id number]. 2.462 Unknown [id number] 2.16.840.1.546915.3.579. 2.462 Unknown [id number] 2.16.840.1.207942.3.579. 2.462 Unknown [id number] 2.16.840.1.139224.3.579. 2.462 Unknown [id number] 2.16840.1.878643.3.579. 2.462 Unknown [id number] 2.16.840.1.263066.3.579. 2.462 Unknown [id number] 2.840.1.052151.3.579. 2.462 Unknown [id number] 2.840.1.278556.3.579. 2.462 Unknown [id number] 2.840.1.486900.3.579. 2.462 Unknown [id number] 2.840.1.966480.3.579. 2.462 Unknown [id number] 2.840.1.463228.3.579. 2.462 Unknown [id number] 2.840.1.029699.3.579. 2.462 Unknown [id number] 2.840.1.330737.3.579. 2.462 Unknown [id number] 2.840.1.806401.3.579. 2.462 Unknown [id number] 2.16840.1.942855.3.579. 2.462 Unknown [id number] 2.16840.1.027789.3.579. 2.462 Unknown [id number] 2.16840.1.860546.3.579. 2.462 Unknown [id number] 2.840.1.399874.3.579. 2.462 Unknown [id number] 2.16840.1.086782.3.579. 2.462 Unknown [id number]. 2.462 Social History Date Type Detail Facility Start: 12-27-2021 End: 07-30-2024 Tobacco smoking status NHIS Smokes tobacco daily [facility] Start: 05-09-1982 End: 09-01-2024 History of tobacco use Cigarette Smoker [facility] Start: 12-27-2021 End: 09-13-2024 Tobacco use and exposure Smokeless tobacco non-user [facility] Start: 1960 Sex Assigned At Not on file C [facility] Start: 12-17-2021 End: 12-27-2021 Exposure to SARS-CoV-2 (event) Not sure [facility] Start: 1960 Sex Assigned At Female [facility] Tobacco smoking stat us LAIS Unknown if ever smoked [facility] Work Phone: Start: 07-27-2024 End: 08-17-2024 Sex Female (finding) [facility] Start: 08-28-2024 End: 09-20-2024 Gender Identity Identifies as female gender (finding) [facility] Start: 08-28-2024 End: 09-20-2024 Cigarettes smoked current (pack per day) - Reported 1 [facility] Start: 08-28-2024 End: 09-21-2024 Alcoholic beverage intake Current drinker of alcohol (finding) [facility] Start: 08-23-2024 Alcohol Comment holidays/speci al occasions only [facility] Start: 09-13-2024 End: 11-07-2024 Tobacco smoking status NHIS Ex-smoker [facility] Start: 05-09-1982 End: 09-01-2024 History of tobacco use Current smoker [facility] Clinical Notes 12-27-2021 to 03-14-2025 Telephone Encounter - Solange Ortiz - 03/14/2025 8:54 AM ESTTelephone Encounter - Solange Ortiz - 03/14/2025 8:54 AM EST Note Date & Type Note Facility 03-14-2025 Telephone encounter Note Form atting of this note might be different from the original. We have been unable to reach your patient to schedule their testing. Test Name: Ct 1st Attempt: 03/12 amy pt will call back to schedule [facility] 03-14-2025 Miscellaneous Notes Formattin g of this note might be different from the original. We have been unable to reach your patient to schedule their testing. Test Name: Ct 1st Attempt: 03/12 sw pt will call back to schedule documented in this encounter [facility] 11-07-2024 Evaluation note Diagnosis Onset Date Resolution Adenocarcinoma of left lung acute November 07, 2024 9:09am Stage 1 mild chronic obstructive pulmonary disease by [employer] for acute November 07, 2024 9:09am Status post pneumonectomy acute November 07, 2024 9:09am Nicotine abuse chronic November 07, 2024 9:09am [facility] Work Phone: [phone] Telephone encounter Note* Telephone Encounter - Yasminelorin Moncada - 10/11/2024 5:32 PM EDT Name of caller: Lee Ann Contact phone number: [phone] Relationship to Patient: Employer Provider: Dr Perez Practice: [facility] S[facility] Chief Complaint/Reason for Call: Company needs verification that patient had 09/20/24 procedure -- they faxed over a surgery confirmation form and are asking for it to be faxed [phone] -- not received. Best time of day caller can be reached: AM Patient advised that office/PCP has 24-48 business hours to return their call: No [id number] Miscellaneous Notes* Telephone Encounter - Yasmine Moncada - 10/11/2024 5:32 PM EDT Name of caller: Lee Ann Contact phone number: [phone] Relationship to Patient: Employer Provider: Dr Perez Practice: [facility] CT S[facility] Chief Complaint/Reason for Call: Company needs verification that patient had 09/20/24 procedure -- they faxed over a surgery confirmation form and are asking for it to be faxed [phone] -- not received. Best time of day caller can be reached: AM Patient advised that office/PCP has 24-48 business hours to return their call: No documented in this [facility]06-03-2025 History of Present illness Narrative* Lalayancy Gonzales, PROJECT MANAGEMENT DIRECTOR - LEAD FABRICATOR - 10/09/2024 10:00 AM EDT Images from the original note were not included. [facility]: [facility] [place] [address] [facility] [address] [facility] [address] Dept: [phone] Dept Loc: [phone] Visit type: Established patient - in person [...] 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 Agreeable for first to be [...] (Chapter 1, 8th Ed.) it is the managingphysician's responsibility to establish the final pathologic stage [...] Real Cabrales M.D. Intraoperative consultation performed at [facility], [address] [place] [address]; CLIA: [id number]; Joint Commission: [id number]; CAP: [id number] Clinical Information Solitary pulmonary nodule - R91.1 [...] This note may have been dictated using [employer] Practice Edition 2.6 and/or [employer] Voice Recognition Feature. The document was proofread, however unrecognized voice recognition environmental scientists errors may be present. documented in this [facility]05-20-2025 NoteDischarge Summary Fozia Breen : 1960 ADMIT DATE: [...] HYDROcodone-acetaminophen 5-325 MG tablet Commonly known as: Henderson Take 1 tablet by mouth every 4 hours as needed for moderate pain (4-6) for up to 5 days. Ask about: Should I take this medication? leucovorin 15 MG tablet Commonly known as: Wellcovorin methotrexate 2.5 MG tablet predniSONE 5 MG tablet Commonly known as: Deltasone Where to Get Your Medications These medications were sent to [id number] - [place], [facility] [address] [address] HYDROcodone-acetaminophen 5-325 MG tablet methocarbamol 500 MG tablet DIET: No diet orders on file ACTIVITY: No restriction. COMPLEXITY OF FOLLOW UP: [] Moderate Complexity: follow up within 7-14 calendar days (66694) [] Severe Complexity: follow up within 7 calendar days (31028) FOLLOW UP TESTING, PENDING RESULTS OR REFERRALS AT TRANSITIONAL CARE VISIT: [] Yes [] No PENDING STUDIES: none DISPOSITION: Home FACILITY/HOME CARE AGENCY NAME: Follow up with Lala Gonzales APRN - LEAD FABRICATOR [address] [phone] Go on 10/09/2024 Time: 10:00am, Post-op lung surgery follow up, (MARIAN with Dr. Perez) Emilie Wheatley MD [address] [facility] [address] INSTRUCTIONS TO MA/SW: Please call patient [...] minutes SIGNED: Moises Pacheco MD 10/01/2024, 10:25 [facility]05-20-2025 Note* Care Coordination - Patrick Tim RN - 09/25/2024 10:25 AM EDT Discharged with home O2. No distress noted. [id number] Note* Care Coordination - Patrick Tim RN - 09/25/2024 10:25 AM EDT Discharged with home O2. No distress noted. [facility] [id number] Miscellaneous Notes* Care Coordination - Patrick Urban RN - 09/25/2024 10:25 AM EDT Discharged with home O2. No distress noted. * Care Plan - Patrick Tim RN - 09/25/2024 8:51 AM EDT Home O2 eval done, patient did drop sats to [address] Perez visited patient ok for discharge. * Care Plan - Tesha Choi RN - 09/24/2024 8:31 PM EDT Problem: Pain - Adult Goal: Verbalizes/displays adequate [...] My discharge needs are met Outcome: Progressing * Care Plan - Patrick Tim RN - 09/24/2024 5:54 PM EDT Chest tubes removed per Dr. Aparicio. Tolerated well. * Care Coordination - Vale Romero RN - 09/24/2024 2:18 PM EDT Case Management Progress Note: Patient transferred to s/p L thoracotomy and LLLobectomy for NSCLS Discharge Plan: Home. Per chart review. Patient noted with 2 CT[address]. Plan a clamp trial this afternoon. ? O2 need at discharge, currently 2L. * Care Plan - Agnes Gray RN - 09/23/2024 1:00 PM EDT Problem: Pain - Adult Goal: Verbalizes/displays adequate [...] My discharge needs are met Outcome: Progressing * Care Coordination - Ning Magaña RN - 09/21/2024 7:51 AM EDT Care Management Progress Note Consults to IP CONSULT TO ANESTHESIOLOGY - ACUTE PAIN SERVICE Initial Assessment: Chart reviewed. Patient has insurance and PCP listed on EHR. CM notified assigned RN no emergency contacts on chart. Patient documented as AO4. Assigned RN to notify CM/SW if NOK search needed. CM will follow for discharge planning. Discharge Planning/Barrier: 09/21/24 0750 Rapid Rounds Attendance Garnett Feeder Planned Discharge Disposition Other (TBD) Today we still await Administering IV medications;Clinical stability;Field Service Consultant recommendations (comment);Symptomatic control Additional Comments: TERADATA DEVELOPER pain pump, chest tubes, PT/OTpending Discharge Plan: TBD. Case management will continue to follow for discharge planning. Length of Stay (Days): 1 GMLOS: No GMLOS Documented * Perioperative Nursing Note - Criss Ladd RN - 09/20/2024 5:48 PM EDT Patient family/visitor updated by RN at this time. * Op Note - Lee Ann Perez MD - 09/20/2024 1:29 PM EDT Images from the original note were not included. [facility] Surgical Services Cardiothoracic Surgery Operative Report Pre-operative [...] 12, 5) Surgeon: Lee Ann Perez MD Reception Clerk(s): NO Pacheco MD Anesthesia: General Estimated blood [...] extubated to recovery room in stable condition. * Brief Op Note - Lee Ann Perez MD - 09/20/2024 1:29 PM EDT Date: 09/20/2024 Location: [facility] OR Name: Fozia Jamshid, : 1960, Diagnosis Pre-op Diagnosis * Solitary pulmonary nodule [R91.1] Post-op Diagnosis * Solitary pulmonary nodule [R91.1] Procedures THORACOSCOPY WITH WEDGE RESECTION LEFT LOWER LOBE 10092 - [place] THORACOSCOPY W/DX WEDGE RESEXN ANATO LUNG RESEXN LOBECTOMY, LUNG, OPEN 11037 - [place] RMVL LUNG OTHER THAN PNEUMONECTOMY 1 LOBE [...] MD 09/20/24 1527 Description: level 10 Staff: Home Performance Consultant: Nina Arredondo RN; Jolly Arteaga RN Relief Home Performance Consultant: Pepe Cruz RN Scrub Person: Yamile Medina [...] Moises Pacheco MD PGY5, General Surgery Pager #[phone] * Pre-Procedure Note - Jean Mcclendon RN - 09/20/2024 1:07 PM EDT Patient stable at this time. Patient denies ringing in ears, numbness or tingling. Family at bedside. * Perioperative Nursing Note - Ashlyn Riggs RN - 09/20/2024 10:28 AM EDT Pt declined Xanax at this time. documented in this [facility]05-20-2025 Plan of care note* Care Plan - Patrick Tim RN - 09/25/2024 8:51 AM EDT Home O2 eval done, patient did drop sats to [address] Perez visited patient ok for discharge. [facility] [id number] NoteRTHOMEO2[[id number]] Respiratory Therapy Home O2 Progress Note O2 [...] concentrator. Pt requires 2L O2 on exertion. [facility]05-20-2025 History of Present illness Narrative* Jeff Trejo - 09/25/2024 8:51 AM EDT RTHOMEO2[[id number]] Respiratory Therapy Home O2 Progress Note O2 [...] Perez MD at 09/25/2024 9:50 AM EDT * Moises Pacheco MD - 09/25/2024 7:47 AM EDT Department of General Surgery Daily [...] 107 121* Hepatic: No results for input(s): AST, ALT, BILITOT, ALKPHOS in the last 72 hours. No lab exists for component: ALB Current Inpatient Medications Scheduled Meds:Scheduled Meds[1] Continuous [...] Ana Pacheco MD PGY5, General Surgery Pager #[phone] [1] cetirizine, 10 mg, Oral, Daily DULoxetine, [...] sodium chloride 0.9% Cosigned by Lee Ann Preez MD at 09/25/2024 9:50 AM EDT * Larry Aparicio MD - 09/24/2024 5:02 PM EDT Left chest tubes removed. Occlusive dressing applied. Patient tolerated well. * Cydney Billings PT - 09/24/2024 3:34 PM EDT Images from the original note were not included. PHYSICAL THERAPY [facility] Treatment Note Name/MRN: Fozia Breen ([id number]) Date of : 1960 Age: 63 y.o. Room/Bed: H-6113/[facility] A Discharge Recommendation: Home with assist [...] dyspnea. O2 assessed during ambulation with and withoutoxygen (per RN); on RA noted O2 sats [...] Training, Plan of Care, Discharge Recommendations, and BreathingTechniques Education Method: Verbal Barriers to Learning: None [...] 24 Minutes (gait x2) Cydney Billings, PT * Moises Pacheco MD - 09/24/2024 1:00 PM EDT Saw patient [address] removal. Had trace air leak with cough. Plan CT clamp trial 5224-4914, CXR 1630. Can remove CT this pm if no PTX on CXR. Moises Pacheco MD PGY5, General Surgery Pager #[phone] * Moises Pacheco MD - 09/24/2024 9:39 AM EDT Department of General Surgery Daily Progress Note SUBJECTIVE: NAEON. Pain well controlled this morning. OOB to chair. Ambulated. CT 170serous output,no AL in CT this am, CXR stable OBJECTIVE: VITALS: BP 138/91 (BP Location: Right arm, Patient Position: Sitting) Pulse 117 Temp (!) 35.7 C(96.2 F) (Temporal) Resp 18 Wt 85 kg [...] 107 121* Hepatic: No results for input(s): AST, ALT, BILITOT, ALKPHOS in the last 72 hours. No lab exists for component: ALB Current Inpatient Medications Scheduled Meds:Scheduled Meds[1] Continuous [...] Ana Pacheco MD PGY5, General Surgery Pager #[phone] [1] cetirizine, 10 mg, Oral, Daily DULoxetine, [...] Perez MD at 09/25/2024 9:50 AM EDT * Cary Mclean OT - 09/23/2024 3:22 PM EDT Images from the original note were not included. OCCUPATIONAL THERAPY [facility] Initial Evaluation Name/MRN: Fozia Breen ([id number]) Evaluation Date: 09/23/2024 Date of : 1960 Admission Date: 09/20/2024 9:54 AM Age: 63 y.o. Room/Bed: [facility] A Discharge Recommendation: Home with assist PRN, [...] Responsibilities: Independent Receives Help From: None Active Improvement Engineer: Yes Prior Level of Function Prior Level [...] of Care supervision is transferred to a [facility] Therapy Services Occupational Therapist. Goals and/or treatment [...] CURETTAGE OF UTERUS EXPLORATORY LAPAROTOMY HYSTERECTOMY 1995 [place] REMV LUNG, WEDGE RESECTION AND ANATOMIC LUNG RESECTION (HISTORICAL) Left 09/20/2024 * Moises Pacheco MD - 09/23/2024 9:55 AM EDT Department of General Surgery Daily Progress Note SUBJECTIVE: NAEON. Pain well controlled this morning. OOB to chair. Ambulated. [id number] SS output, slight AL in rigid CT [...] 121* 107 Hepatic: No results for input(s): AST, ALT, BILITOT, ALKPHOS in the last 72 hours. No lab exists for component: ALB Current Inpatient Medications Scheduled Meds:Scheduled Meds[1] Continuous [...] Ana Pacheco MD PGY5, General Surgery Pager #[phone] [1] cetirizine, 10 mg, Oral, Daily DULoxetine, [...] Perez MD at 09/25/2024 9:50 AM EDT * Nga Noriega PTA - 09/23/2024 9:25 AM EDT Images from the original note were not included. PHYSICAL THERAPY [facility] Treatment Note Name/MRN: Fozia Breen ([id number]) Date of : 1960 Age: 63 y.o. Room/Bed: T1-123/T1-123 A Discharge Recommendation: Home with assist PRN Equipment Needed: No (has walker, transport chair, shower chair, BSC) Prior Level of Function Prior Level of ADL Function: Independent Prior Level of Mobility: Independent; Device: None Prior Level of Transfers: Independent Assessment Patient is progressing well towards goals. Able to perform transfers with supervision and ambulateslap around unit with nezzi and SBA. O2 [...] Supervision Good technique, no instability Device(s) used: Neurolink Ambulation Ambulation 1 Assistive device(s) used: Reframe ItzzDashBurst Assist level: SBA Distance (ft): 350ft Quality [...] 31 Timed Code Treatment Minutes: 31 Minutes (Gait, TP) Nga Noriega PTA Cosigned by Erika Chan, PT at 09/23/2024 9:47 AM EDT * Tyra Godfrey APRN - LEAD FABRICATOR - 09/22/2024 11:42 AM EDT PAGING: The Acute Pain Service providers are available exclusively via [email or web address] SECURE CHAT. APS does not utilize pagers. 09/22/2024 Discharge Recommendations: Henderson 1-2 tablets q8h prn for mod / severe pain Robaxin 750mg PO q8h prn for muscle spasms Stool softeners Pain Management Adjuvants: 0700 --> 0700 09/21/24 Scheduled APAP 650mg Gabapentin Lidocaine patches PRN Hydromorphone IV Methocarbamol Oxycodone Henderson 8 tablets Assessment / Pain Management Plan: Recommendations made, will sign off at this time. Thank you for inviting us to participate in the care of this patient. Acute Postsurgical Chest pain Multimodal pain regimen: BLOCK: Serratus Anterior 09/20/24 Pt requested Henderson post operatively 09/21/24 Does not want IV pain medications, does not feel she does well on them Continue Hydromorphone 0.25 mg - 0.5 mg IVP q4h prn moderate to severe breakthrough pain. Please utilize oral medications first. Continue Naloxone 0.4 mg IVP prn opioid reversal. PRN if respiratory rate is less than 6/min and patient is difficult to arouse then notify physicianSTAT. Mix 9 mL of sodium chloride 0.9% with 0.4 mg (1 mL) of naloxone (NARCAN) in 10 mL syringe. (Note: dilution is 0.04 mg/mL) Give 0.08 mg (2 mL of special dilution), slow IV push, repeat up to 0.4mg (10 mL) or until patient is responsive [...] deep breathing, digestion, circulation and your body's abilityto heal itself. OARRS reviewed for past two [...] at chest tube site is controlled with Henderson per her request. Does not like IV [...] without any focal sensory/motor deficits. Cranial nerves: II-XIIintact, grossly non-focal. Psychiatric: Alert and orientedx3, thought [...] Pain Service providers are available exclusively via [email or web address] SECURE CHAT. APS does not utilize pagers. * Fatuma De Jesus - 09/22/2024 11:03 AM EDT Nutrition rescreen completed. Chart reviewed. Patient to be monitored and followed by the diet public health sanitarian technician. * Moises Pacheco MD - 09/22/2024 10:09 AM EDT Department of General Surgery Daily [...] 159* 121* Hepatic: No results for input(s): AST, ALT, BILITOT, ALKPHOS in the last 72 hours. No lab exists for component: ALB Current Inpatient Medications Scheduled Meds:Scheduled Meds[1] Continuous Infusions:Continuous Meds[2] PRN Meds:PRN Meds[3] ASSESSMENT AND PLAN: 63 y.o. female POD 2 s/p L thoracotomy and LLLobectomy for NSCLS -Diet as khoa, SLIV -Home meds -CT to water seal -Daily cxr -Lovenox ppx Staff: Will discuss with Dr. Ana Pacheco MD PGY5, General Surgery Pager #[phone] [1] cetirizine, 10 mg, Oral, Daily DULoxetine, [...] Perez MD at 09/25/2024 9:50 AM EDT * Moises Pacheco MD - 09/21/2024 10:12 AM EDT Department of General Surgery Daily [...] 189* 159* Hepatic: No results for input(s): AST, ALT, BILITOT, ALKPHOS in the last 72 hours. No lab exists for component: ALB Current Inpatient Medications Scheduled Meds:Scheduled Meds[1] Continuous Infusions:Continuous Meds[2] PRN Meds:PRN Meds[3] ASSESSMENT AND PLAN: 63 y.o. female POD 1 s/p L thoracotomy and LLLobectomy for NSCLS -Diet as khoa, SLIV - DC art line and farley -Home meds -CT to water seal this am -Daily cxr -Lovenox ppx Staff: Will discuss with Dr. Ana Pacheco MD PGY5, General Surgery Pager #[phone] [1] acetaminophen, 650 mg, Oral, q6h cetirizine, 10 mg, Oral, Daily DULoxetine, 60 mg, Oral, Nightly enoxaparin, 40 mg, SubCUTAneous, q24h mupirocin, 1 Application, Nasal, BID polyethylene glycol (PEG) 3350, 17 g, Oral, Daily sodium chloride 0.9%, 5-40 mL, IntraVENous, 2 times per day [2] HYDROmorphone, [3] PRN medications: HYDROmorphone, labetalol, naloxone (Narcan) 0.4 mg in sodium chloride (PF) 0.9% 10 mL injection, ondansetron ODT OR ondansetron, sodium chloride, sodium chloride 0.9% Cosigned by Lee Ann Perez MD at 09/25/2024 9:49 AM EDT * Cydney Billings, PT - 09/21/2024 10:03 AM EDT Images from the original note were not included. PHYSICAL THERAPY [facility] Initial Evaluation Name/MRN: Fozia Breen ([id number]) Evaluation Date: 09/21/2024 Date of : 1960 Admission Date: 09/20/2024 9:54 AM Age: 63 y.o. Room/Bed: T1-123/T1-123 A Discharge Recommendation: Home with assist PRN Equipment Needed: No (has walker, transport chair, shower chair, BSC) Assessment IMPRESSION: Patient is a 63 yo admitted due to lung nodule s/p thoracoscopy with wedge resection ofleft upper lobe and lobectomy on 09/20/24. Patient is limited by L rib pain and impaired standing balance. Patient required CGA for sit <> stand transfers. Patient ambulated 110 feet using Nezzie with CGA. Patient will benefit from acute PT services to improve endurance and independence with mo bility. Anticipate home with assist PRN. Admitting Diagnosis: [...] Responsibilities: Independent Receives Help From: None Active Improvement Engineer: Yes Prior Level of Function Prior Level of ADL Function: Independent Prior Level of Mobility: Independent; Device: None Prior Level of Transfers: Independent Objective Transfers/Mobility Sit to stand: Contact Guard Stand to sit: Contact Guard From recliner and toilet with UE support, cues for hand placement Device(s) used: Neurolink Ambulation Assistive device(s) used: NezzDashBurst Assist level: Contact Guard Distance (ft): 15, [...] Raw Score (No Stairs) : 15 [facility] Score: Walked 25 ft or more (i.e. walked outside of room) Plan Pt would benefit from skilled acute PT services to address Strengthening, Gait Training, Balance Training, Self-Care/ADL Training, Functional Mobility Training, Endurance Training, Safety Education and Training, Pain Management, Stair Training, and Neuromuscular Re-Education Training. Frequency: 5x/week for 4 weeks Barriers: Pain, Impaired balance, Lower extremity weakness, Limited safety awareness, and Decreasedendurance Safety/Education Safety Safety Devices in place: All [...] Therapy Time Individual Co-Treatment Co-Evaluation Time In 0905 Time Out 0920 Minutes 15 Cydney Billings PT Patient's Physical Therapy Plan of Care supervision is transferred to a [facility] Therapy Services Physical Therapist. Goals and/or treatment [...] CURETTAGE OF UTERUS EXPLORATORY LAPAROTOMY HYSTERECTOMY 1995 [place] REMV LUNG, WEDGE RESECTION AND ANATOMIC LUNG RESECTION (HISTORICAL) Left 09/20/2024 documented in this [facility]05-20-2025 Hospital Discharge instructions* Discharge Instructions* Moises Pacheco MD - 09/25/2024 7:48 AM [...] -Chest pain. -Abdominal distention. documented in this [facility]05-20-2025 [facility] Daily Progress Note SUBJECTIVE: [...] 107 121* Hepatic: No results for input(s): AST, ALT, BILITOT, ALKPHOS in the last 72 hours. No lab exists for component: ALB Current Inpatient Medications Scheduled Meds:Scheduled Meds[1] Continuous [...] Ana Pacheco MD PGY5, General Surgery Pager #[phone] [1] cetirizine, 10 mg, Oral, Daily DULoxetine, [...] glycol (PEG) 3350, sodium chloride, sodium chloride 0.9%[facility] [id number] Plan of care note* Care Plan - Tesha Choi RN - 09/24/2024 8:31 PM EDT Problem: Pain - Adult Goal: Verbalizes/displays adequate [...] My discharge needs are met Outcome: Progressing [id number] Plan of care note* Care Plan - Patrick Tim RN - 09/24/2024 5:54 PM EDT Chest tubes removed per Dr. Aparicio. Tolerated well. [facility] [id number] Note* Care Coordination - Vale Romero RN - 09/24/2024 2:18 PM EDT Case Management Progress Note: Patient transferred to s/p L thoracotomy and LLLobectomy for NSCLS Discharge Plan: Home. Per chart review. Patient noted with 2 CT's. Plan a clamp trial this afternoon. ? O2 need at discharge, currently 2L. [facility] [id number] Note* Care Coordination - Vale Romero RN - 09/24/2024 2:18 PM EDT Case Management Progress Note: Patient transferred to H6 s/p L thoracotomy and LLLobectomy for NSCLS Discharge Plan: Home. Per chart review. Patient noted with 2 CT's. Plan a clamp trial this afternoon. ? O2 need at discharge, currently 2L. [facility] [id number] NoteCase Management Progress Note: Patient transferred to H6 s/p L thoracotomy and LLLobectomy for NSCLS Discharge Plan: Home. Per chart review. Patient noted with 2 CT's. Plan a clamp trial this afternoon. ? O2 need at discharge, currently 2L. [facility]05-19-2025 Note Department of General Surgery Daily Progress Note [...] 107 121* Hepatic: No results for input(s): AST, ALT, BILITOT, ALKPHOS in the last 72 hours. No lab exists for component: ALB Current Inpatient Medications Scheduled Meds:Scheduled Meds[1] Continuous [...] Ana Pacheco MD PGY5, General Surgery Pager #[phone] [1] cetirizine, 10 mg, Oral, Daily DULoxetine, [...] ODT OR ondansetron, sodium chloride, sodium chloride 0.9%[facility] 09-23-2024 NoteOCCUPATIONAL THERAPY [facility] Initial Evaluation Name/MRN: Fozia Breen ([id number]) Evaluation Date: 09/23/2024 Date of : 1960 Admission Date: 09/20/2024 9:54 AM Age: 63 y.o. Room/Bed: [facility]/63 A Discharge Recommendation: Home with assist PRN, [...] Responsibilities: Independent Receives Help From: None Active Improvement Engineer: Yes Prior Level of Function Prior Level [...] Daily Activity Raw Score: 24 ADL Inpatient [facility] G-Code Modifier: CH Plan No skilled acute [...] of Care supervision is transferred to a [facility] Therapy Services Occupational Therapist. Goals and/or treatment [...] CURETTAGE OF UTERUS EXPLORATORY LAPAROTOMY HYSTERECTOMY 1995 [place] REMV LUNG, WEDGE RESECTION AND ANATOMIC LUNG RESECTION (HISTORICAL) Left 09/20/2024[facility]05-18-2025 Plan of care note* Care Plan - Agnes Gray RN - 09/23/2024 1:00 PM EDT Problem: Pain - Adult Goal: Verbalizes/displays adequate [...] My discharge needs are met Outcome: Progressing T [id number] [facility] Daily Progress Note SUBJECTIVE: NAEON. Pain well controlled this morning. OOB to chair. Ambulated. Dl486op SS output, slight AL in rigid CT [...] 121* 107 Hepatic: No results for input(s): AST, ALT, BILITOT, ALKPHOS in the last 72 hours. No lab exists for component: ALB Current Inpatient Medications Scheduled Meds:Scheduled Meds[1] Continuous [...] Ana Pacheco MD PGY5, General Surgery Pager #[phone] [1] cetirizine, 10 mg, Oral, Daily DULoxetine, [...] ODT OR ondansetron, sodium chloride, sodium chloride 0.9%[facility] 09-22-2024 NoteDepartment of General Surgery Daily Progress Note SUBJECTIVE: [...] 159* 121* Hepatic: No results for input(s): AST, ALT, BILITOT, ALKPHOS in the last 72 hours. No lab exists for component: ALB Current Inpatient Medications Scheduled Meds:Scheduled Meds[1] Continuous Infusions:Continuous Meds[2] PRN Meds:PRN Meds[3] ASSESSMENT AND PLAN: 63 y.o. female POD 2 s/p L thoracotomy and LLLobectomy for NSCLS -Diet as khoa, SLIV -Home meds -CT to water seal -Daily cxr -Lovenox ppx Staff: Will discuss with Dr. Ana Pacheco MD PGY5, General Surgery Pager #[phone] [1] cetirizine, 10 mg, Oral, Daily DULoxetine, [...] ODT OR ondansetron, sodium chloride, sodium chloride 0.9%[facility]05-16-2025 NoteDepartment of General Surgery Daily Progress Note SUBJECTIVE: [...] 189* 159* Hepatic: No results for input(s): AST, ALT, BILITOT, ALKPHOS in the last 72 hours. No lab exists for component: ALB Current Inpatient Medications Scheduled Meds:Scheduled Meds[1] Continuous Infusions:Continuous Meds[2] PRN Meds:PRN Meds[3] ASSESSMENT AND PLAN: 63 y.o. female POD 1 s/p L thoracotomy and LLLobectomy for NSCLS -Diet as khoa, SLIV - DC art line and farley -Home meds -CT to water seal this am -Daily cxr -Lovenox ppx Staff: Will discuss with Dr. Ana Pacheco MD PGY5, General Surgery Pager #[phone] [1] acetaminophen, 650 mg, Oral, q6h cetirizine, [...] ODT OR ondansetron, sodium chloride, sodium chloride 0.9%[facility]05-16-2025 Note PHYSICAL THERAPY [facility] Initial Evaluation Name/MRN: Fozia Breen ([id number]) Evaluation Date: 09/21/2024 Date of : 1960 [...] Responsibilities: Independent Receives Help From: None Active Improvement Engineer: Yes Prior Level of Function Prior Level of ADL Function: Independent Prior Level of Mobility: Independent; Device: None Prior Level of Transfers: Independent Objective Transfers/Mobility Sit to stand: Contact Guard Stand to sit: Contact Guard From recliner and toilet with UE support, cues for hand placement Device(s) used: Neurolink Ambulation Assistive device(s) used: Neurolink Assist level: Contact Guard Distance (ft): 15, [...] Raw Score (No Stairs) : 15 JH-HLM -HL Score: Walked 25 ft or more (i.e. [...] with P&C exercises. Start: (more content not included)...[facility]05-16-2025 Note* Addendum Note - ALICE Ac CRNA - 09/21/2024 8:22 AM EDT Addendum created 09/21/24821 by ALICE Ac CRNA Attestation recorded in Intraprocedure, Intraprocedure Attestations filed [facility] Work Phone: 1(991) 118-995405-16-2025 NoteAddendum created 09/21/24821 by ALICE Ac CRNA Attestation recorded in Intraprocedure, Intraprocedure [facility] Miscellaneous Notes* Addendum Note - ALICE Ac CRNA - 09/21/2024 8:22 AM EDT Addendum created 09/21/24821 by ALICE Ac CRNA Attestation recorded in Intraprocedure, Intraprocedure Attestations filed * Anesthesia Discharge Note - ALICE Love CRNA - 09/20/2024 4:29 PM EDT Patient: Fozia Breen Procedure Summary Date: 09/20/24 Room / Location: [facility] Operating Room Anesthesia Start: 1326 Anesthesia [...] criteria has been met. documented in this [facility]05-16-2025 Note* Care Coordination - Ning Magaña RN - 09/21/2024 7:51 AM EDT Care Management Progress Note Consults to IP CONSULT TO ANESTHESIOLOGY - ACUTE PAIN SERVICE Initial Assessment: Chart reviewed. Patient has insurance and PCP listed on EHR. CM notified assigned RN no emergency contacts on chart. Patient documented as AO4. Assigned RN to notify CM/SW if NOK search needed. CM will follow for discharge planning. Discharge Planning/Barrier: 09/21/24 0750 Rapid Rounds Attendance Garnett Feeder Planned Discharge Disposition Other (TBD) Today we still await Administering IV medications;Clinical stability;Field Service Consultant recommendations (comment);Symptomatic control Additional Comments: TERADATA DEVELOPER pain pump, chest tubes, PT/OTpending Discharge Plan: TBD. Case management will continue to follow for discharge planning. Length of Stay (Days): 1 GMLOS: No GMLOS Documented T [facility] [id number] Note* Care Coordination - Ning Magaña RN - 09/21/2024 7:51 AM EDT Care Management Progress Note Consults to IP CONSULT TO ANESTHESIOLOGY - ACUTE PAIN SERVICE Initial Assessment: Chart reviewed. Patient has insurance and PCP listed on EHR. CM notified assigned RN no emergency contacts on chart. Patient documented as AO4. Assigned RN to notify CM/SW if NOK search needed. CM will follow for discharge planning. Discharge Planning/Barrier: 09/21/24 0750 Rapid Rounds Attendance Garnett Feeder Planned Discharge Disposition Other (TBD) Today we still await Administering IV medications;Clinical stability;Field Service Consultant recommendations (comment);Symptomatic control Additional Comments: TERADATA DEVELOPER pain pump, chest tubes, PT/OTpending Discharge Plan: TBD. Case management will continue to follow for discharge planning. Length of Stay (Days): 1 GMLOS: No GMLOS Documented T [facility] [id number] NoteCare Management Progress Note Consults to IP CONSULT TO ANESTHESIOLOGY - ACUTE PAIN SERVICE Initial Assessment: Chart reviewed. Patient has insurance and PCP listed on EHR. CM notified assigned RN no emergency contacts on chart. Patient documented as AO4. Assigned RN to notify CM/SW if NOK search needed. CM will follow for discharge planning. Discharge Planning/Barrier: 09/21/24 0750 Rapid Rounds Attendance Garnett Feeder Planned Discharge Disposition Other (TBD) Today we still await Administering IV medications;Clinical stability;Field Service Consultant recommendations (comment);Symptomatic control Additional Comments: TERADATA DEVELOPER pain pump, chest tubes, PT/OTpending Discharge Plan: TBD. Case management will continue to follow for discharge planning. Length of Stay (Days): 1 GMLOS: No GMLOS [facility] Nurse Note* Perioperative Nursing Note - Criss Ladd RN - 09/20/2024 5:48 PM EDT Patient family/visitor updated by RN at this time. [facility] [id number] Note* Anesthesia Discharge Note - ALICE Love CRNA - 09/20/2024 4:29 PM EDT Patient: Fozia Breen Procedure Summary Date: 09/20/24 Room / Location: [facility] OR [address] [place] [address] Operating Room Anesthesia Start: 1325 Anesthesia Stop: [...] once all PACU criteria has been met. [facility] FoundationStpdog76-21-7001 NotePatient: Fozia Breen Procedure Summary Date: 09/20/24 Room / Location: [facility] OR [address] [place] [address] Operating Room Anesthesia Start: 1325 Anesthesia Stop: 1628 Procedures: THORACOSCOPY WITH WEDGE [...] discharged once all PACU criteria has been met.[facility]05-15-2025 Anesthesiology Postoperative evaluation and management note * Anesthesia Postprocedure Evaluation - ALICE Love CRNA - 09/20/2024 4:23 PM EDT Patient: Fozia Breen Procedure Summary Date: 09/20/24 Room / Location: [facility] Operating Room Anesthesia Start: 1326 Anesthesia Stop: 8 Procedures: THORACOSCOPY WITH WEDGE RESECTION LEFT LOWER LOBE (Left: Chest) LOBECTOMY, LUNG, OPEN (Left: Chest) Diagnosis: Solitary pulmonary nodule Surgeons: Lee Ann Perez MD Responsible Provider: ALICE oLve CRNA Anesthesia Type: general ASA Status: 3 Anesthesia Type: general Vitals Value Taken Time BP 136/105 09/20/24 16:25 Temp 36.4 09/20/24 16:28 Pulse 93 09/20/24 16:27 Resp 09/20/24 16:27 SpO2 95 % 09/20/24 16:27 [...] a current smoker (e.g. cigarette, cigar, pipe, e- cigarette/vaping/marijuana) If no stop here (XX404) I completed my handoff to the receiving clinician during which we: 1. Identified the patient 2. Identified the responsible provider 3. Reviewed the pertinent medical history 4. Discussed the surgical course 5. Reviewed intra-op anesthesia management and issues during anesthesia 6. Set expectations for post-procedure period 7. Allowed opportunity for questions and acknowledgement of understanding. [employer] Phone: 1(712) 214-783405-15-2025 NotePatient: Fozia Breen Procedure Summary Date: 09/20/24 Room / Location: [facility] OR Operating Room Anesthesia Start: 1326 Anesthesia Stop: [...] Allowed opportunity for questions and acknowledgement of understanding.[facility]05-15-2025 Surgical operation note* Anesthesia Postprocedure Evaluation - Mariia Talavera APRN - ABEL - 09/20/2024 4:23 PM EDT Patient: Fozia Breen Procedure Summary Date: 09/20/24 Room / Location: [facility] Operating Room Anesthesia Start: 1326 Anesthesia [...] a current smoker (e.g. cigarette, cigar, pipe, e- cigarette/vaping/marijuana) If no stop here (XX404) I completed my handoff to the receiving clinician during which we: 1. Identified the patient 2. Identified the responsible provider 3. Reviewed the pertinent medical history 4. Discussed the surgical course 5. Reviewed intra-op anesthesia management and issues during anesthesia 6. Set expectations for post-procedure period 7. Allowed opportunity for questions and acknowledgement of understanding. * Anesthesia Procedure Notes - ALICE Love CRNA - 09/20/2024 2:23 PM EDTAssociated Order(s): Airway Airway Date/Time: 09/20/2024 1:40 PM Reason: scheduled Airway not difficult General Information and Staff Patient location during procedure: Procedural Anesthesiologist: Jorge Ortiz DO Resident/TRACK SUPERINTENDENT: ALICE Love CRNA Performed: TRACK SUPERINTENDENT Patient Condition Indications for airway management: anesthesia [...] Placement verified by bronch with Dr. Ortiz * Anesthesia Procedure Notes - ALICE Love CRNA - 09/20/2024 2:23 PM EDTAssociated Order(s): Peripheral IV Peripheral IV Date/Time: 09/20/2024 1:50 PM Inserted by: MariiaALICE Mcconnell CRNA Placement Needle size: 18 G Laterality: right Location: hand Local anesthetic: none Site prep: chlorhexidine Technique: anatomical landmarks Attempts: 1 * Anesthesia Procedure Notes - ALICE Hopper CRNA - 09/20/2024 1:58 PM EDTAssociated Order(s): Peripheral Block Peripheral Block Time Out: 09/20/2024 1:45 PM Patient location during procedure: Procedural Start time: 09/20/2024 1:45 PM End time: 09/20/2024 1:47 PM Reason for block: at surgeon's request and post-op pain management Staffing Performed: ABEL Anesthesiologist: Jorge Ortiz DO Resident/TRACK SUPERINTENDENT: ALICE Hopper CRNA Preanesthetic Checklist Completed: patient identified, IV checked, site marked, risks and benefits discussed, surgical consent, monitors and equipment checked, pre-op evaluation and timeout performed Region: Truncal Primary: Serratus Anterior Peripheral Block Patient position: supine Prep: ChloraPrep Patient monitoring: heart rate, hydrographic engineer, continuous pulse ox and continuous capnometry O2: [...] during injection and Normal resistance with injectionMedications rtvZAEGDcalef-jnpjsafrlhz-eatubcrscxg (TAP) syringe - Injection 20 mL - 09/20/2024 1:45:00 PM bupivacaine liposome (Exparel) 1.3 % injection - Injection 10 mL - 09/20/2024 1:45:00 PM * Anesthesia Procedure Notes - ALICE Hopper CRNA - 09/20/2024 1:54 PM EDTAssociated Order(s): Peripheral Block Peripheral Block Time Out: 09/20/2024 12:55 PM Patient location during procedure: pre-op Start time: 09/20/2024 12:55 PM End time: 09/20/2024 1:00 PM Reason for block: at surgeon's request and post-op pain management Staffing Performed: TRACK SUPERINTENDENT Anesthesiologist: Jorge Ortiz DO Resident/TRACK SUPERINTENDENT: ALICE Hopper CRNA Preanesthetic Checklist Completed: patient identified, IV checked, site marked, risks and benefits discussed, surgical consent, monitors and equipment checked, pre-op evaluation and timeout performed Region: Truncal Primary: Erector Spinae Peripheral Block Patient position: sitting Prep: ChloraPrep Patient monitoring: heart rate, hydrographic engineer and continuous pulse ox O2: Room air [...] - IntraVENous 2 mg - 09/20/2024 12:55:00 OZyceYIALPgwtsq-oaxszbmdakz-fsoavywzpzn (TAP) syringe - Injection 20 mL - 09/20/2024 12:55:00 PM bupivacaine liposome (Exparel) 1.3 % injection - Injection 10 mL - 09/20/2024 12:55:00 PM * Anesthesia Procedure Notes - ALICE Hopper CRNA [...] procedure well with no complications. Staffing Performed: TRACK SUPERINTENDENT Anesthesiologist: Jorge Ortiz DO Resident/TRACK SUPERINTENDENT: ALICE Hopper CRNA * Anesthesia Preprocedure Evaluation - Jorge Ortiz DO - 09/19/2024 11:38 AM EDT Patient: Fozia Breen Procedure Information Date/Time: 09/20/24 1200 Procedures: THORACOSCOPY WITH WEDGE RESECTION LEFT LOWER LOBE (Left: Chest) POSSIBLE LOBECTOMY, LUNG, OPEN (Left: Chest) Location: [facility] OR Operating Room Surgeons: Lee Ann Perez [...] Brother Heart attack Brother documented in this [facility]05-15-2025 Procedure anesthesia Narrative* Procedure Summary Procedure Name Responsible Anesthesiologist Anesthesia Start Time Anesthesia Stop Time THORACOSCOPY WITH WEDGE RESECTION LEFT LOWER LOBE (Left: Chest) ALICE Love CRNA 09/20/24 1326 09/20/24 1628 Events Date Time [...] vent 1529 An Two-Lung Vent Per Dr. Walden inal request 1531 An one lung vent 1536 An Two-Lung Vent Per Dr. Walden inal request 1559 Proc Fin 1607 Kamron Awaiting [...] (Exparel) 1.3 % inj ection 10 mL xrxTFULHwnevr-pgevljhygqh-kqeniumyowa (T AP) syringe 20 mL ppfAGOEHaomqv-mmhzmazmckz-dvewiakuqvq (T AP) syringe 20 mL midazolam (Versed) [...] by: Hardik Perez MD.; Tube Number: 1 ([id number]); Orientation: Left; Location: Fourth intercostal space; Size: 28 Fr; Drainage System: [place]/nonsuction water seal drainage, Suction; Sutures Placed: 1 09/20/24 1504 by Pepe Cruz RN Chest Tube Placement Date: 09/06 09/30; Placement Time: 1504; Inserted by: Hardik Perez MD.; Tube Number: 2 ([id number]); Orientation: Left; Location: Fourth intercostal space; Size: 24 Fr; Drainage System: [place]/nonsuction water seal drainage, Suction; Sutures Placed: 1 [...] Line Placement Date: 09/06 09/30; Placement Time: 1342 (created via procedure documentation); Size: 20 G; Orientation: Right; Location: Radial; Securement: Taped; Patient Tolerance: Tolerated well; Removal Date: 09/21/24; Removal Time: 0900; Removal Reason: Per order 09/20/24 1342 by ALICE Hopper CRNA 09/21/24 0900 by Todd Tran RN documented in this encounter [facility] [id number] Anesthesiology procedure note* Anesthesia Procedure Notes - ALICE Love CRNA - 09/20/2024 2:23 PM EDTAssociated Order(s): Airway Airway Date/Time: 09/20/2024 1:40 PM Reason: scheduled Airway not difficult General Information and Staff Patient location during procedure: Procedural Anesthesiologist: Jorge Ortiz DO Resident/TRACK SUPERINTENDENT: ALICE Love CRNA Performed: ABEL Patient Condition Indications for airway management: anesthesia [...] Placement verified by bronch with Dr. Ortiz [facility] [id number] NoteAirway Date/Time: 09/20/2024 1:40 PM Reason: scheduled Airway not difficult General Information and Staff Patient location during procedure: Procedural Anesthesiologist: Jorge Ortiz DO Resident/TRACK SUPERINTENDENT: ALICE Love CRNA Performed: ABEL Patient Condition Indications for airway management: anesthesia [...] unchanged. Placement verified by [facility] Anesthesiology procedure note* Anesthesia Procedure Notes - ALICE Love CRNA - 09/20/2024 2:23 PM EDTAssociated Order(s): Peripheral IV Peripheral IV Date/Time: 09/20/2024 1:50 PM Inserted by: ALICE Love CRNA Placement Needle size: 18 G Laterality: right Location: hand Local anesthetic: none Site prep: chlorhexidine Technique: anatomical landmarks Attempts: 1 [facility] [id number] NotePeripheral IV Date/Time: 09/20/2024 1:50 PM Inserted by: ALICE Love CRNA Placement Needle size: 18 G Laterality: right Location: hand Local anesthetic: none Site prep: chlorhexidine Technique: anatomical landmarks Attempts: [address] [place], [place] [address]05-15-2025 Anesthesiology procedure note* Anesthesia Procedure Notes - ALICE Hopper CRNA - 09/20/2024 1:58 PM EDTAssociated Order(s): Peripheral Block Peripheral Block Time Out: 09/20/2024 1:45 PM Patient location during procedure: Procedural Start time: 09/20/2024 1:45 PM End time: 09/20/2024 1:47 PM Reason for block: at surgeon's request and post-op pain management Staffing Performed: ABEL Anesthesiologist: Jorge Ortiz DO Resident/TRACK SUPERINTENDENT: ALICE Hopper CRNA Preanesthetic Checklist Completed: patient identified, IV checked, site marked, risks and benefits discussed, surgical consent, monitors and equipment checked, pre-op evaluation and timeout performed Region: Truncal Primary: Serratus Anterior Peripheral Block Patient position: supine Prep: ChloraPrep Patient monitoring: heart rate, hydrographic engineer, continuous pulse ox and continuous capnometry O2: [...] during injection and Normal resistance with injectionMedications wzpSQMATgljpt-eagrrnwjlog-yetcfolaxgn (TAP) syringe - Injection 20 mL - 09/20/2024 1:45:00 PM bupivacaine liposome (Exparel) 1.3 % injection - Injection 10 mL - 09/20/2024 1:45:00 PM [employer] Phone: 1(819) 142-210805-15-2025 NotePeripheral Block Time Out: 09/20/2024 1:45 PM Patient location during procedure: Procedural Start time: 09/20/2024 1:45 PM End time: 09/20/2024 1:47 PM Reason for block: at surgeon's request and post-op pain management Staffing Performed: TRACK SUPERINTENDENT Anesthesiologist: Jorge Ortiz DO Resident/TRACK SUPERINTENDENT: ALICE Hopper CRNA Preanesthetic Checklist Completed: patient identified, IV checked, site marked, risks and benefits discussed, surgical consent, monitors and equipment checked, pre-op evaluation and timeout performed Region: Truncal Primary: Serratus Anterior Peripheral Block Patient position: supine Prep: ChloraPrep Patient monitoring: heart rate, hydrographic engineer, continuous pulse ox and continuous capnometry O2: [...] during injection and Normal resistance with injectionMedications wsbFAGIQarnuv-lxjfhlnkfel-qzdtufafzqc (TAP) syringe - Injection 20 mL - 09/20/2024 1:45:00 PM bupivacaine liposome (Exparel) 1.3 % injection - Injection 10 mL - 09/20/2024 1:45:00 [facility]05-15-2025 Anesthesiology procedure note* Anesthesia Procedure Notes - Jani Mendoza APRN - ABEL - 09/20/2024 1:54 PM EDTAssociated Order(s): Peripheral Block Peripheral Block Time Out: 09/20/2024 12:55 PM Patient location during procedure: pre-op Start time: 09/20/2024 12:55 PM End time: 09/20/2024 1:00 PM Reason for block: at surgeon's request and post-op pain management Staffing Performed: ABEL Anesthesiologist: Jorge Ortiz DO Resident/TRACK SUPERINTENDENT: Jani Mendoza APRN - ABEL Preanesthetic Checklist Completed: patient identified, IV checked, site marked, risks and benefits discussed, surgical consent, monitors and equipment checked, pre-op evaluation and timeout performed Region: Truncal Primary: Erector Spinae Peripheral Block Patient position: sitting Prep: ChloraPrep Patient monitoring: heart rate, hydrographic engineer and continuous pulse ox O2: Room air [...] - IntraVENous 2 mg - 09/20/2024 12:55:00 UVviaUBCQZpzkdb-dlkjwmeqffa-xgzeppabibf (TAP) syringe - Injection 20 mL - 09/20/2024 12:55:00 PM bupivacaine liposome (Exparel) 1.3 % injection - Injection 10 mL - 09/20/2024 12:55:00 PM [facility] [id number] NotePeripheral Block Time Out: 09/20/2024 12:55 PM Patient location during procedure: pre-op Start time: 09/20/2024 12:55 PM End time: 09/20/2024 1:00 PM Reason for block: at surgeon's request and post-op pain management Staffing Performed: ABEL Anesthesiologist: Jorge Ortiz DO Resident/TRACK SUPERINTENDENT: ALICE Hopper CRNA Preanesthetic Checklist Completed: patient identified, IV checked, site marked, risks and benefits discussed, surgical consent, monitors and equipment checked, pre-op evaluation and timeout performed Region: Truncal Primary: Erector Spinae Peripheral Block Patient position: sitting Prep: ChloraPrep Patient monitoring: heart rate, hydrographic engineer and continuous pulse ox O2: Room air [...] - IntraVENous 2 mg - 09/20/2024 12:55:00 UVkokEMPNLixinz-drqzesucyfp-ydcuyotfkwd (TAP) syringe - Injection 20 mL - 09/20/2024 12:55:00 PM bupivacaine liposome (Exparel) 1.3 % injection - Injection 10 mL - 09/20/2024 12:55:00 [facility]05-15-2025 Anesthesiology procedure note* Anesthesia Procedure Notes - [...] procedure well with no complications. Staffing Performed: TRACK SUPERINTENDENT Anesthesiologist: Jorge Ortiz DO Resident/TRACK SUPERINTENDENT: ALICE Hopper CRNA [facility]05-15-2025 NoteArterial Line: Date/Time: 09/20/2024 1:42 PM An [...] procedure well with no complications. Staffing Performed: TRACK SUPERINTENDENT Anesthesiologist: Jorge Ortiz DO Resident/TRACK SUPERINTENDENT: Jani Mendoza APRN - [facility] [id number] Procedure note* Op Note - Lee Ann Perez MD - 09/20/2024 1:29 PM EDT Images from the original note were not included. [facility] Surgical Services Cardiothoracic Surgery Operative Report Pre-operative [...] 12, 5) Surgeon: Lee Ann Perez MD Reception Clerk(s): NO Pacheco MD Anesthesia: General Estimated blood [...] extubated to recovery room in stable condition. [facility] [id number] Procedure note* Brief Op Note - Lee Ann Perez MD - 09/20/2024 1:29 PM EDT Date: 09/20/2024 Location: [facility] OR Name: Fozia Breen, : 1960, Diagnosis Pre-op Diagnosis * Solitary pulmonary nodule [R91.1] Post-op Diagnosis * Solitary pulmonary nodule [R91.1] Procedures THORACOSCOPY WITH WEDGE RESECTION LEFT LOWER LOBE 72288 - [place] THORACOSCOPY W/DX WEDGE RESEXN ANATO LUNG RESEXN LOBECTOMY, LUNG, OPEN 81842 - [place] RMVL LUNG OTHER THAN PNEUMONECTOMY 1 LOBE [...] 162 Site Assessment Not assessed 09/20/24 1625 Specimens [...] MD 09/20/24 1527 Description: level 10 Staff: Home Performance Consultant: Nina Arredondo, TRESSA; Jolly Arteaga RN Relief Home Performance Consultant: Pepe Cruz RN Scrub Person: Yamile Medina [...] Moises Pacheco MD PGY5, General Surgery Pager #[phone] [facility] [id number] Evaluation note* Pre-Procedure Note - Jean Mcclendon RN - 09/20/2024 1:07 PM EDT Patient stable at this time. Patient denies ringing in ears, numbness or tingling. Family at bedside. [facility] [id number] Attending History and physical note* Lee Ann Perez MD - 09/20/2024 11:59 AM EDT H&P reviewed. The patient was examined and there are no changes to the H&P. Source Note - Lee Ann Perez MD - 08/28/2024 11:00 AM EDT Images from the original note were not included. [facility] [address] [facility] [address] Dept: [phone] Dept Loc: [phone] Visit type: New Reason for Visit: PET [...] Large adult) Pulse98 Ht 1.549 m (5' 1) Wt 80.7 kg (178 lb) BMI 33.63 [...] and time. Labs No results found for: WBC, HGB, PLT, NA, K, CREATININE Imaging PET 08/07/[address] Chest 07/18/24 Patient Care Team: PCP: Emilie Wheatley MD Pulmonology: Angeline Lew NP-Mary Disclaimer INFORMED CONSENT:The nature and purpose of [...] This note may have been dictated using [employer] Practice Edition 2.6 and/or [employer] Voice Recognition Feature. The document was proofread, however unrecognized voice recognition environmental scientists errors may be present. [facility] [place] Work Phone: 1(822) 163-205105-15-2025 NoteH&P reviewed. The patient was examined and there are no changes to the H&P.[facility]05-15-2025 Attending History and physical note* Lee Ann Perez MD - 09/20/2024 11:59 AM EDT H&P reviewed. The patient was examined and there are no changes to the H&P. Source Note - Lee Ann Perez MD - 08/28/2024 11:00 AM EDT Images from the original note were not included. [facility] CARDIOVASCULAR & THORACIC SURGERY [address] [facility] [address] Dept: [phone] Dept Loc: [phone] Visit type: New Reason for Visit: PET [...] distant metastatic disease. History of Present Illness Fozai Breen is a 63 y.o. female referred by LIAZNDRO Ocasio for enlarging, PET positive left lower [...] Large adult) Pulse98 Ht 1.549 m (5' 1) Wt 80.7 kg (178 lb) BMI 33.63 [...] and time. Labs No results found for: WBC, HGB, PLT, NA, K, CREATININE Imaging PET 08/07/[address] Chest [...] This note may have been dictated using [employer] Medical Practice Edition 2.6 and/or [employer] Voice Recognition Feature. The document was proofread, however unrecognized voice recognition environmental scientists errors may be present. [facility] Center[facility] International [id number] NoteH&P reviewed. The patient was examined and there are no changes to the H&P.[facility]05-15-2025 History and physical note* Lee Ann Perez MD - 09/20/2024 11:59 AM EDT H&P reviewed. The patient was examined and there are no changes to the H&P. Source Note - Lee Ann Perez MD - 08/28/2024 11:00 AM EDT Images from the original note were not included. [facility] CARDIOVASCULAR & THORACIC SURGERY [address] [facility] [address] Dept: [phone] Dept Loc: [phone] Visit type: New Reason for Visit: PET [...] Large adult) Pulse98 Ht 1.549 m (5' 1) Wt 80.7 kg (178 lb) BMI 33.63 [...] and time. Labs No results found for: WBC, HGB, PLT, NA, K, CREATININE Imaging PET 08/07/[address] Chest [...] This note may have been dictated using [employer] Practice Edition 2.6 and/or [employer] Voice Recognition Feature. The document was proofread, however unrecognized voice recognition environmental scientists errors may be present. * Lee Ann Perez MD - 09/20/2024 11:59 AM EDT H&P reviewed. The patient was examined and there are no changes to the H&P. Source Note - Lee Ann Perez MD - 08/28/2024 11:00 AM EDT Images from the original note were not included. [facility] CARDIOVASCULAR & THORACIC SURGERY [address] [facility] [address] Dept: [phone] Dept Loc: [phone] Visit type: New Reason for Visit: PET [...] Large adult) Pulse98 Ht 1.549 m (5' 1) Wt 80.7 kg (178 lb) BMI 33.63 [...] and time. Labs No results found for: WBC, HGB, PLT, NA, K, CREATININE Imaging PET 08/07/[address] Chest [...] This note may have been dictated using [employer] Medical Practice Edition 2.6 and/or [employer] Voice Recognition Feature. The document was proofread, however unrecognized voice recognition environmental scientists errors may be present. documented in this encounterSKettering Health Greene [id number] Nurse Note* Perioperative Nursing Note - Ashlyn Riggs RN - 09/20/2024 10:28 AM EDT Pt declined Xanax at this time. [facility] [id number] Anesthesiology Preoperative evaluation and management note* Anesthesia Preprocedure Evaluation - Jorge Ortiz DO - 09/19/2024 11:38 AM EDT Patient: Fozia Breen Procedure Information Date/Time: 09/20/24 1200 Procedures: THORACOSCOPY WITH WEDGE RESECTION LEFT LOWER LOBE (Left: Chest) POSSIBLE LOBECTOMY, LUNG, OPEN (Left: Chest) Location: [facility] OR Operating Room Surgeons: Lee Ann Perez [...] disease Brother Hypertension Brother Heart attack Brother [employer] Phone: 1(494) 412-797105-14-2025 NotePatient: Fozia Jamshid Procedure Information Date/Time: 09/20/24 1200 Procedures: THORACOSCOPY WITH WEDGE RESECTION LEFT LOWER LOBE (Left: Chest) POSSIBLE LOBECTOMY, LUNG, OPEN (Left: Chest) Location: [facility] Operating Room Surgeons: Lee Ann Perez [...] Heart disease Brother Hypertension Brother Heart attack [facility]04-27-2025 Telephone encounter Note* Telephone Encounter - ALICE Yancey CNP - 09/02/2024 1:06 PM EDT Surg proc orders placed. ALICE Grimm CNP 09/02/24 [employer] Phone: 1(346) 779-795004-27-2025 Miscellaneous Notes* Telephone Encounter - ALICE Yancey [...] mouth rinse [] Other: documented in this [facility]04-25-2025 Procedure [facility] Pulmonary Services/Neurology [address] [place] [address] MR#: [id number] Acct: [id number] Name: FOZIA BREEN Rep #:[id number] : 1960 63 From: Shivam Pryor DO Referring Dr: Angeline Lew NP LINING BASTER-C Status: REG CLI Location: PSN Date: Sex: F C PSN 6 Minute Walk Test 6 Minute Walk Test 6 Minute Walk Test: 6 Minute Walk Test PSN:6-Minute Walk Test Start: 08/30/24 11:32 Freq: Status: Active Protocol: RESP.6MINW Document 08/30/24 11:32 HODAON (Rec: 08/30/24 11:34 SFCLEMENCIAON [id number]) 6 Minute Walk Test Date Performed 08/30/24 Time Performed 11:20 Height 5 ft 1 in Weight: 178 lb Weight in Pounds 178.[address]: Angeline Lew LINING BASTER Assistive device None used: Pre-test Oxygen Delivery [...] Shivam Pryor DO CC: ~ Date Dictated: 08/31/240 Date Transcribed: 08/31/241219 Pocket Creaser: Dr. Shivam Pryor, Signed [facility]04-24-2025 NotePrep for Procedure Order Request: 08/30/24 Surgeon: Perez Surgery/Procedure: Left Lower Lobe Wedge Resection, possible Lobectomy Diagnosis: Lung Nodule Plan Admit: yes PAT Appointment: yes Date if yes: phone call 09/13/24 @ 10:30 am Date of Surgery/Procedure: 09/20/24 noon Medications: [] Hold as directed by CTS: [x] Per PAT protocol Medication needed prescribed: [x] None [] Nasal ointment and mouth rinse [] Other: [facility]04-24-2025 Telephone encounter Note* Telephone Encounter - Iris Ventura MA - 08/30/2024 9:55 AM EDT Prep for Procedure Order Request: 08/30/24 Surgeon: Ana Surgery/Procedure: Left Lower Lobe Wedge Resection, possible Lobectomy Diagnosis: Lung Nodule Plan Admit: yes PAT Appointment: yes Date if yes: phone call 09/13/24 @ 10:30 am Date of Surgery/Procedure: 09/20/24 noon Medications: [] Hold as directed by CTS: [x] Per PAT protocol Medication needed prescribed: [x] None [] Nasal ointment and mouth rinse [] Other: [facility] [id number] History of Present illness Narrative* Lee Ann Perez MD - 08/28/2024 11:00 AM EDT Images from the original note were not included. [facility] CARDIOVASCULAR & THORACIC SURGERY [address] [facility] [address] Dept: [phone] Dept Loc: [phone] Visit type: New Reason for Visit: PET [...] Large adult) Pulse98 Ht 1.549 m (5' 1) Wt 80.7 kg (178 lb) BMI 33.63 [...] and time. Labs No results found for: WBC, HGB, PLT, NA, K, CREATININE Imaging PET 08/07/[address] Chest [...] This note may have been dictated using [employer] Medical Practice Edition 2.6 and/or [employer] Voice Recognition Feature. The document was proofread, however unrecognized voice recognition environmental scientists errors may be present. documented in this [facility]04-22-[address] [facility] [place] [place] [facility] CARDIOVASCULAR & THORACIC SURGERY [address] [facility] [address] Dept: [phone] Dept Loc: [phone] Visit type: New Reason for Visit: PET [...] adult) Pulse 98 Ht 1.549 m (5' 1) Wt 80.7 kg (178 lb) BMI 33 (more content not included)...[facility]04-11-2025 Evaluation note* Diagnosis Onset Date Resolution [...] Nicotine abuse chronic November 07, 2024 9:09am [facility] Work Phone: 1(763) 797-678503-24-2025 Evaluation note* Diagnosis Onset Date Resolution Status Admit Date Lung nodule acute July 30, 9:06am Allergies chronic July 30 9:06am Smoking greater than 20 pack years chronic July 30, 2024 9:06am [facility] Work Phone: 1(356) 666-253503-24-2025 Evaluation note* Diagnosis Onset Date Resolution Status Admit Date Lung nodule acute July 30, 9:06am Allergies chronic July 30 9:06am Smoking greater than 20 pack years chronic July 30, 2024 9:06am Abnormal PET of left lung acute August 17, 2024 7:38am Shortness of breath acute August 17, 2024 7:38am Smoking greater than 20 pack years chronic August 17, 2024 7:38am [facility] Work Phone: 1(262) 712-952703-24-2025 Evaluation note* Diagnosis Onset Date Resolution Status [...] post pneumonectomy acute November 07, 2024 9:09am [facility] Work Phone: 1(790) 714-553803-12-2025 Radiology Diagnostic study note [facility] Imaging Services [address] [place] [address] Lung Screening MR#: [id number] Acct: [id number] Name: FOZIA BREEN Rep #: [id number] : 1960 F 63 From: Wade Laura MD PCP: Dr. Emilie Wheatley MD Status: REG CLI Study:Low Dose CT Lung Screening Date of Exam : 07/18/24 Exam# [id number] Ordering Dr: Viktoria Rubi sa DO PROCEDURE: [...] potentially significant findings (non-lung cancer) Reading Location: [facility] CC: Dr. Emilie Wheatley MD; Dr. Chasity Rubi DO ~ Pocket Creaser: Signed [facility]08-21-2022 NoteHNO ID: [id number] Author: Tamara Graff APRN.LEAD FABRICATOR Service: ? Author Type: Nurse Practitioner Type: [...] Discussed expected course of illness Tamara Graff APRN.[facility]08-21-2022 History of Present illness Narrative* Tamara Graff APRN.LEAD FABRICATOR - 12/27/2021 9:17 AM EDT Subjective Fever [...] Wt 77.7 kg (171 lb 3.2 oz) [id number]% No past medical history on file. No [...] illness Tamara Graff APRN.CNP documented in this encounterMer[facility]. [facility]08-21-2022 Instructions* Patient Instructions* Tamara Graff APRN.CNP [...] to your local emergency facility: Notify the joy operator that you are seeking care for [...] or concerning to you. [facility]* Diagnosis Suspected COVID-19 virus infection- Primary documented in [facility] noteNo assessment information availableWBethesda North Hospital Work Phone: Evaluation note* Diagnosis Pulmonary nodule- Primary Other diseases of lung, not elsewhere classified Rheumatoid arthritis, involving unspecified site, unspecified whether rheumatoid factor present (HCC) documented in this encounter [facility] note* Diagnosis Lung nodule- Primary Other diseases of lung, not elsewhere classified Solitary pulmonary nodule documented in this encounter [facility] note* Diagnosis Lung nodule- Primary Other diseases of lung, not elsewhere classified Lung nodule Other diseases of lung, not elsewhere classified Solitary pulmonary nodule documented in this encounter [facility]* Diagnosis Adenocarcinoma (HCC)- Primary Other malignant neoplasm of unspecified site Pulmonary nodule Other diseases of lung, not elsewhere classified documented in this encounter [facility] FoundationReason for referral (narrative)No reason for referral information availableWBethesda North Hospital Work Phone: Reason for visit Narrative* Auth/Cert (Routine) Specialty Diagnoses / Procedures Referred By Contac t Referred To Contact Diagnoses Solitary pulmonary nodule Procedures NJ THORACOSCOPY W/DX WEDGE RESEXN ANATO LUNG RESEXN [place] RMVL LUNG OTHER THAN PNEUMONECTOMY 1 LOBE LOBECT THORACOSCOPY WITH WEDGE RESECTION LEFT LOWER LOBE POSSIBLE LOBECTOMY, LUNG, OPEN PerezLee Ann perdomo MD [address] [place] [address] [place] [address] Phone: tel: fax: Referral ID Status Reason Start Date Expiration Date Visits Re quested Visits Authorized [id number] 08/29/2024 1 1 [facility] Concerns Infection Onset Date Last Indicated Resolved [...] FoundDocuments on File Type Date Recorded 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 Link Shop Supervisor Expl 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 Power of Storage Battery Inspector And Tester 09/20/2024 10:09 AM Date Activated Date Inactivated Comments 09/20/2024 10:06 AM Date Activated Date Inactivated Comments 09/20/2024 10:06 AM 09/25/2024 12:38 PM Documents on File Type Date Recorded 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 Reason for Visit (unrecogniz ed section and content) Reason Comments Fever Nausea, FUCHS, body ach es x 7 hours Reason Comments New Patient Reason Onset Date Comments Surgery Scheduling 08/30/2024 Reason Onset Date Comments Procedure 10/11/2024 Reason Comments Post-op Reason Onset Date Comments Other 03/14/2025 Central scheduli INFORMATION SOURCE (unrecogn ized section and content) DATE CREATED AUTHOR 12/31/2021 [facility] DATE CREATED AUTHOR AUTHOR'S ORGANIZ ATION 03/15/2025 [facility] DATE CREATED AUTHOR AUTHOR'S ORGANIZ ATION 03/19/2025 [facility] Goals (unrecognized section and content) Goals may [...] 2024 End: July 30, 2024 Angeline Lew LINING BASTER, LINING BASTER-C Attending Provider Active Start: July 30, 2024 End: July 30, 2024 Team Status: Inactive Member Role Status Dates Dr. Emilie Wheatley MD Primary Care Provider Active Start: August 07, 2024 End: August 07, 2024 Angeline Lew LINING BASTER, LINING BASTER-C Attending Provider Active Start: August 07, 2024 End: August 07, 2024 Angeline Lew LINING BASTER, LINING BASTER-C Referring Provider Active Start: August 07, 2024 End: August 07, 2024 Gaming Floor Supervisor Relationship Specialty Start Date End Date Emilie Wheatley MD [address] [place] [phone] PCP - General Family Medicine 08/23/24 Gaming Floor Supervisor Relationship Specialty Start Date End Date Emilie Wheatley MD [address] [place] [phone] PCP - General Family Medicine 08/23/24 Gaming Floor Supervisor Relationship Specialty Start Date End Date Emilie Wheatley MD [address] [place] [phone] PCP - General Family Medicine 08/23/24 Team Status: Inactive Member Role Status Dates Dr. Emilie Wheatley MD Primary Care Provider Active Start: August 17, 2024 End: August 17, 2024 Dr. Emilie Wheatley MD Referring Provider Active Start: August 17, 2024 End: August 17, 2024 Angeline Lew LINING BASTER, LINING BASTER-C Attending Provider Active Start: August 17, 2024 End: August 17, 2024 Team Status: Inactive Member Role Status Dates Dr. Emilie Wheatley MD Primary Care Provider Active Start: August 30, 2024 End: August 30, 2024 Angeline Lew LINING BASTER, LINING BASTER-C Attending Provider Active Start: August 30, 2024 End: August 30, 2024 Angeline Lew LINING BASTER, LINING BASTER-C Referring Provider Active Start: August 30, 2024 End: August 30, 2024 Team Status: Active Member Role Status Dates Dr. Emilie Wheatley MD Primary Care Provider Active Start: August 31, 2024 Angeline Lew LINING BASTER, LINING BASTER-C Attending Provider Active Start: August 31, 2024 Angeline Lew LINING BASTER, LINING BASTER-C Referring Provider Active Start: August 31, 2024 Team Status: Active Member Role Status Dates Dr. Emilie Wheatley MD Primary Care Provider Active Start: August 31, 2024 Angeline Lew LINING BASTER, LINING BASTER-C Referring Provider Active Start: August 31, 2024 Angeline Lew LINING BASTER, LINING BASTER-C Other Provider Active Start: August 31, 2024 Dr. Shivam Pryor DO Attending Provider Active S tart: August 31, 2024 Gaming Floor Supervisor Relationship Specialty Start Date End Date Emilie Wheatley MD [address] [place] [phone] PCP - General Family Medicine 08/23/24 Gaming Floor Supervisor Relationship Specialty Start Date End Date Emilie Wheatley MD [address] [place] [phone] PCP - General Family Medicine 08/23/24 Gaming Floor Supervisor Relationship Specialty Start Date End Date Emilie Wheatley MD [address] [place] [phone] PCP - General Family Medicine 08/23/24 Team [...] 2024 End: July 30, 2024 Angeline Lew LINING BASTER, LINING BASTER-C Attending Provider Active Start: July 30, 2024 End: July 30, 2024 Team Status: Inactive Member Role/Relationship Status Dates Dr. Emilie Wheatley MD Primary Care Provider Active Start: August 07, 2024 End: August 07, 2024 Angeline Lew LINING BASTER, LINING BASTER-C Attending Provider Active Start: August 07, 2024 End: August 07, 2024 Angeline Lew LINING BASTER, LINING BASTER-C Referring Provider Active Start: August 07, 2024 End: August 07, 2024 Team Status: Inactive Member Role/Relationship Status Dates Dr. Emilie Wheatley MD Primary Care Provider Active Start: August 17, 2024 End: August 17, 2024 Dr. Emilie Wheatley MD Referring Provider Active Start: August 17, 2024 End: August 17, 2024 Angeline Lew LINING BASTER, LINING BASTER-C Attending Provider Active Start: August 17, 2024 End: August 17, 2024 Team Status: Inactive Member Role/Relationship Status Dates Dr. Emilie Wheatley MD Primary Care Provider Active Start: August 30, 2024 End: August 30, 2024 Angeline Lew LINING BASTER, LINING BASTER-C Attending Provider Active Start: August 30, 2024 End: August 30, 2024 Angeline Lew LINING BASTER, LINING BASTER-C Referring Provider Active Start: August 30, 2024 End: August 30, 2024 Team Status: Inactive Member Role/Relationship Status Dates Dr. Emilie Wheatley MD Primary Care Provider Active Start: August 31, 2024 End: August 31, 2024 Angeline Lew LINING BASTER, LINING BASTER-C Attending Provider Active Start: August 31, 2024 End: August 31, 2024 Angeline Lew LINING BASTER, LINING BASTER-C Referring Provider Active Start: August 31, 2024 End: August 31, 2024 Team Status: Active Member Role/Relationship Status Dates Dr. Emilie Wheatley MD Primary Care Provider Active Start: August 31, 2024 Angeline Lew LINING BASTER, LINING BASTER-C Referring Provider Active Start: August 31, 2024 Angeline Lew LINING BASTER, LINING BASTER-C Other Provider Active Start: August 31, 2024 Dr. Shivam Pryor DO Attending Provider Active S tart: August 31, 2024 Team Status: Inactive Member Role/Relationship Status Dates Dr. Emilie Wheatley MD Primary Care Provider Active Start: November 07, 2024 End: November 07, 2024 Dr. Emilie Wheatley MD Referring Provider Active Start: November 07, 2024 End: November 07, 2024 Angeline Lew LINING BASTER, LINING BASTER-C Attending Provider Active Start: November 07, 2024 End: November 07, 2024 Team Status: Inactive Member Role/Relationship Status Dates Dr. Emilie Wheatley MD Primary Care Provider Active Start: August 07, 2024 End: August 07, 2024 Angeline Lew LINING BASTER, LINING BASTER-C Attending Provider Active Start: August 07, 2024 End: August 07, 2024 Angeline Lew LINING BASTER, LINING BASTER-C Referring Provider Active Start: August 07, 2024 End: August 07, 2024 Team Status: Inactive Member Role/Relationship Status Dates Dr. Emilie Wheatley MD Primary Care Provider Active Start: August 17, 2024 End: August 17, 2024 Dr. Emilie Wheatley MD Referring Provider Active Start: August 17, 2024 End: August 17, 2024 Angeline Lew LINING BASTER, LINING BASTER-C Attending Provider Active Start: August 17, 2024 End: August 17, 2024 Team Status: Inactive Member Role/Relationship Status Dates Dr. Emilie Wheatley MD Primary Care Provider Active Start: August 30, 2024 End: August 30, 2024 Angeline Lew LINING BASTER, LINING BASTER-C Attending Provider Active Start: August 30, 2024 End: August 30, 2024 Angeline Lew LINING BASTER, LINING BASTER-C Referring Provider Active Start: August 30, 2024 End: August 30, 2024 Team Status: Inactive Member Role/Relationship Status Dates Dr. Emilie Wheatley MD Primary Care Provider Active Start: August 31, 2024 End: August 31, 2024 Angeline Lew LINING BASTER, LINING BASTER-C Attending Provider Active Start: August 31, 2024 End: August 31, 2024 Angeline Lew LINING BASTER, LINING BASTER-C Referring Provider Active Start: August 31, 2024 End: August 31, 2024 Team Status: Active Member Role/Relationship Status Dates Dr. Emilie Wheatley MD Primary Care Provider Active Start: August 31, 2024 Angeline Lew LINING BASTER, LINING BASTER-C Referring Provider Active Start: August 31, 2024 Angeline Lew LINING BASTER, LINING BASTER-C Other Provider Active Start: August 31, 2024 Dr. Shivam Pryor DO Attending Provider Active S tart: August 31, 2024 Team Status: Inactive Member Role/Relationship Status Dates Dr. Emilie Wheatley MD Primary Care Provider Active Start: November 07, 2024 End: November 07, 2024 Dr. Emilie Wheatley MD Referring Provider Active Start: November 07, 2024 End: November 07, 2024 Angeline Lew LINING BASTER, LINING BASTER-C Attending Provider Active Start: November 07, 2024 [...] November 27, 2024 End: November 27, 2024 Team Status: Active Member Role/Relationship Status Dates Dr. Emilie Wheatley MD Primary care physician Active Team Status: Inactive Member Role/Relationship Status Dates Dr. Emilie Wheatley MD Primary care physician Active Start: November 07, 2024 End: November 07, 2024 Dr. Emilie Wheatley MD Referring Provider Active Start: November 07, 2024 End: November 07, 2024 Angeline Lew LINING BASTER, LINING BASTERKacieC Attending physician Active Start: November 07, 2024 End: November 07, 2024 Team Status: Inactive Member Role/Relationship Status Dates Dr. Emilie Wheatley MD Primary care physician Active Start: November 27, 2024 End: November 27, 2024 Dr. Maria A Carranza MD Attending physician Active Start: November 27, 2024 End: November 27, 2024 Dr. Maria A Carranza MD Referring Provider Active Start: November 27, 2024 End: November 27, 2024 Team Status: Inactive Member Role/Relationship Status Dates Dr. Emilie Wheatley MD Primary care physician Active Start: January 15, 2025 End: January 15, 2025 Dr. Maria A Carranza MD Attending physician Active Start: January 15, 2025 End: January 15, 2025 Dr. Maria A Carranza MD Referring Provider Active Start: January 15, 2025 End: January 15, 2025 Team Status: Active Member Role/Relationship Status Dates Dr. Emilie Wheatley MD Primary care physician Active Start: January 30, 2025 Dr. Emilie Wheatley MD Attending physician Active Start: January 30, 2025 Dr. Emilie Wheatley MD Referring Provider Active Start: January 30, 2025 Team Status: Inactive Member Role/Relationship Status Dates Dr. Emilie Wheatley MD Primary care physician Active Start: January 30, 2025 End: January 30, 2025 Dr. Emilie Wheatley MD Attending physician Active Start: January 30, 2025 End: January 30, 2025 Dr. Emilie Wheatley MD Referring Provider Active Start: January 30, 2025 End: January 30, 2025 Team Status: Active Member Role/Relationship Status Dates Dr. Emilie Wheatley MD Primary care physician Active Start: February 06, 2025 Dr. Emilie Wheatley MD Attending physician Active Start: February 06, 2025 Dr. Emilie Wheatley MD Referring Provider Active Start: February 06, 2025 Scheduled Active and Recently Administ ered Medications (unrecognized section and content) Medication Order 09/23/2024 09/24/2024 09/25/2024 cetirizine (ZyrTEC) tablet 10 mg 10 mg, Oral, Daily, First dose on Tue09/21/24 at 0900 0501 (Given - Provider: Ephraim Mendoza RN) 0603 (Given - Provider: Charu Pryor RN) 0514 (Given - Provider: Tesha Choi, TRESSA) DULoxetine (Cymbalta) DR capsule 60 mg 60 mg, Oral, Nightly, First dose on Tue09/20/24 at 2100, Phase II/On Unit, Do not crush or chew. 2034 (Given - Provider: Charu Pryor RN) 2030 (Given - Provider: Tesha Choi, TRESSA) enoxaparin (Lovenox) syringe 40 mg 40 mg, SubCUTAneous, Every 24 hours, First dose on Tue09/21/24 at 0900, Phase II/On Unit, Indication of Use: Prophylaxis-DVT/PE, Indications: Prophylaxis of Venous Thromboembolism 0822 (Given - Provider: Odalys Parker RN) 0833 (Given - Provider: Patrick Tim, TRESSA) 0827 (Not Given - Provider: Patrick Tim RN - Reason: Patient/family refused) magnesium hydroxide (Milk of Magnesia) 400 MG/5ML suspension 30 mL (CANCELED) 30 mL, Oral, Daily, First dose on Tue09/23/24 at 0900, Phase II/On Unit, Follow dose with 8 oz of water. 924 (Given - Provider: Odalys Parker RN) 0615 (Not Given - Provider: Charu Pryor RN - Reason: Patient/family refused) mupirocin (Bactroban) 2 % ointment 1 Application 1 Application, Nasal, 2 times daily, First dose on [facility] 09/20/24 at 2100, For 5 days, Phase II/On Unit, Indications: MRSA Nasal Decolonization 0822 (Given - Provider: Odalys Parker RN)214 (Not Given - Provider: Charu Pryor RN - Reason: Patient/family refused) 0836 (Not Given - Provider: Patrick Tim RN - Reason: Medication not available)222 (Not Given - Provider: Tesha Choi RN - Reason: Medication not available) 0827 (Not Given - Provider: Patrick Tim RN - Reason: Medication not available) senna-docusate sodium (Senokot-S) 8.6-50 MG tablet 2 tablet 2 tablet, Oral, Daily, First dose (after last modification) on [place] 09/23/24 at 0915, Phase II/On Unit 0925 (Given - Provider: Odalys Parker RN) 0832 (Given - Provider: Patrick Tim RN) 0828 (Not Given - Provider: Patrick Tim RN - Reason: Patient/family refused) sodium chloride 0.9% (NS) flush 5-40 mL 5-40 mL, IntraVENous, Every 12 hours scheduled (2 times per day), First dose on [facility] 09/20/24 at 2100, Phase II/On Unit, or [...] Midline or Central Line = 20 mL/lumen 0823 (Given - Provider: Odalys Parker RN)2035 (Given - Provider: Charu Pryor RN) 0833 (Given - Provider: Patrick Tim RN)2031 (Given - Provider: Tesha Choi RN) 0828 (Not Given - Provider: Patrick Tim RN - Reason: Other - Comment: being discontined) PRN Medication Order 09/23/2024 09/24/2024 09/25/2024 calcium carbonate (Tums) chewable tablet 1,000 mg 1,000 mg, Oral, 2 times daily PRN, indigestion, heartburn, Starting on Tue09/21/24 at 1025 diphenhydrAMINE (BENADryl) tablet/capsule 25 mg 25 mg, Oral, Every 8 hours PRN, itching, Starting on Tue09/21/24 at 1646 HYDROcodone-acetaminophe n (Henderson) 5-325 MG per tablet 1 tablet(Linked Group [...] (See Alternative - Provider: Tesha Choi RN) 0031 (Given - Provider: Tesha Choi RN)0836 (See Alternative - Provider: Patrick Tim RN) HYDROcodone-acetaminophe n (Henderson) 5-325 MG per tablet 2 tablet(Linked Group 1) 2 tablet, Oral, Every 4 hours PRN, severe pain (7-10), moderate pain (4-6), Starting on Tue09/21/24 at 1135, Maximum dose of acetaminophen is 4000 mg from all sources in 24 hours. 0238 (See Alternative - Provider: Ephraim Mendoza RN)0822 (Given - Provider: Odalys Parker RN)1638 (Given - Provider: Agnes Gray RN)2034 (Given - Provider: Charu Pryor RN) 0354 (See Alternative - Provider: Charu Pryor RN)1239 (See Alternative - Provider: Patrick Tim RN)2029 (Given - Provider: Tesha Choi RN) 003 (See Alternative - Provider: Tesha Choi RN)0836 (Given - Provider: Patrick Tim RN) HYDROmorphone [...] mL, Oral, Nightly PRN, constipation, Starting on Tue09/24/24 at 1330, Phase II/On Unit, Follow dose with 8 oz of water. methocarbamol (Robaxin) tablet 1,000 mg 1,000 mg, Oral, Every 8 hours PRN, muscle spasms, Starting on Tue09/22/24 at 1142 0822 (Given - Provider: Odalys Parker RN)1638 (Given - Provider: Agnes Gray RN) 035 (Given - Provider: Charu Pryor RN)1239 (Given - Provider: Patrick Tim RN - Comment: only wanted 1 pill.)2036 (Given - Provider: Tesha Choi, TRESSA) 0836 (Given - Provider: Patrick Tim RN) naloxone (Narcan) injection 0.4 mg 0.4 mg, IntraVENous, Every 5 min PRN, opioid reversal, respiratory depression, Starting on Tue09/21/24 at 1143, +++ For RR <10, pinpoint pupils, over sedation for opioid reversal - MUST notify music rehabilitation therapist provider immediately after first dose, may give [...] on Tue09/24/24 at 1330, Phase II/On Unit sodium chloride [...] mL/lumen Linked Groups Order Group 1: HYDROcodone-acetaminophen (Henderson) 5-325 MG per tablet 1 tabletJump to med 1 tablet, Oral, Every 4 hours PRN, moderate pain (4-6), Starting on Tue09/21/24 at 1135, Maximum dose of acetaminophen is 4000 mg from all sources in 24 hours. Or HYDROcodone-acetaminophen (Henderson) 5-325 MG per tablet 2 tabletJump to [...] BE BASED ON THE PRIMARY CLINICAL RECORDS. [facility]. provides no warranty or guarantee of the accuracy or completeness of information in this document.
--- NOTE | 2025-04-02 07:16 | CT_ITS ---
PROCEDURE: CHEST WITHOUT CONTRAST 04/02/2025 REASON FOR EXAM: S/P LL RESECTION NEEDS SURVEILENCE EVERY 6 MONTHS TECHNIQUE: Chest CT without contrast. Coronal and Sagittal reconstruction series were provided. One or more dose reduction techniques were used (e.g., Automated exposure control, adjustment of the mA and/or kV according to patient size, use of iterative reconstruction technique RADIATION DOSE SUMMARY: CTDlvol: 11.47 mGy DLP: 378.4 mGycm COMPARISON: 07/18/2024 FINDINGS: There is interval resection of previously seen left lower lobe pulmonary nodule. Mild scarring at the left lung base. No new pulmonary nodule is identified on the current exam. Scattered regions of mild atelectasis bilaterally. There are no enlarged axillary or mediastinal lymph nodes. There is no cardiomegaly. Scant pericardial fluid. Small hiatal hernia. Hypodense 1.2 cm right thyroid nodule series 2, image 4. Degenerative changes in the thoracic spine. CT/Chest without Contrast IMPRESSION: 1. There is no new pulmonary nodule. Postsurgical changes at the left lower lo be. Reading Location: [id number]
== END | disposition home or self-care (01) ==
PROVIDERS: PCP Family Medicine; Referring Provider Family Medicine; Visit Provider Family Medicine
DX: C34.92 Malignant neoplasm of unspecified part of left bronchus or lung (principal); M81.0 Age-related osteoporosis without current pathological fracture
CPT/HCPCS: 71250; 77080

== ENCOUNTER → 2025-04-13 | Outpatient (CLI) | payer OTHER, SELFPAY ==
--- OUTSIDE RECORDS SUMMARY | 2025-04-13 10:46 | XMS RPT_ITS | CCD ---
Author Organization [facility] Care Team Providers Care Wood Tank Erector Name Role Phone Unavailable Primary Care Provider Unavailemmett e Greyson GARCIA, Dr. Gaspar Primary Care Provider Tere PETTY, Dr. Saha Attending Provider eTre PETTY, Dr. Saha Referring Provider Dr. Chasity [...] Tere PETTY, Dr. Saha Referring Provider Vipin PLUMBER MAINTENANCE-C, Angeline Referring Provider Emilie Wheatley MD Primary Care Provider Vipin PLUMBER MAINTENANCE-C, Angeline Other Provider Dr. Shivam Pryor DO Attending Provider [phone] Corry PETTY, Dr. Phan Primary Care Provider iVpin PLUMBER MAINTENANCE-C, Angeline Attending Provider Corry PETTY, Dr. Phan Referring Provider [phone] Tere PETTY, Dr. Saha Attending Provider Teer PETTY, Dr. Saha Referring Provider Corry PETTY, Dr. Phan Primary Care Physician Corry PETTY, Dr. Phan Referring Provider [phone] Lew PLUMBER MAINTENANCE-C, Angeline Attending Physician Tere PETTY, Dr. Saha [...] Primary Care Unavailable BrownShivam Attending Unavailable Lew PLUMBER MAINTENANCE, Angeline Referring Unavailable BrownShivam Attending Unavailable Lew PLUMBER MAINTENANCE, Angeline Consulting Unavailable Lew PLUMBER MAINTENANCE, Angeline Referring Unavailable Miedel, Emilie Primary Care Unavailable Miedel, Emilie Primary Care Unavailable Lew PLUMBER MAINTENANCE, Angeline Referring Unavailable Lew PLUMBER MAINTENANCE, Angeline Attending Unavailable Maria A Carranza Attending Unavailable Maria A Carranza Referring Unavailable Miedel, Emilie Primary Care Unavailable Miedel, Emilie Primary Care Unavailable Lew PLUMBER MAINTENANCE, Angeline Referring Unavailable Lew PLUMBER MAINTENANCE, Angeline Attending Unavailable Lew PLUMBER MAINTENANCE, Angeline Referring Unavailable Lew PLUMBER MAINTENANCE, Angeline Attending Unavailable Miedel, Emilie Primary Care Unavailable Lew PLUMBER MAINTENANCE, Angeline Attending Unavailable Miedel, Emilie Primary Care Unavailable Malys, Chasity Referring Unavailable Malys, Chasity Attending Unavailable Miedel, Emilie Referring Unavailable Miedel, Emilie Attending Unavailable Miedel, Emilie Primary Care Unavailable Miedel, Emilie Referring Unavailable Miedel, Emilie Attending Unavailable Miedel, Emilie Primary Care Unavailable Miedel, Emilie Primary Care Unavailable Miedel, Emilie Referring Unavailable Lew PLUMBER MAINTENANCE, Angeline Attending Unavailable Miedel, Emilie Referring Unavailable Miedel, Emilie Primary Care Unavailable Lew PLUMBER MAINTENANCE, Angeline Attending Unavailable Miedel, Emilie Referring Unavailable Miedel, Emilie Primary Care Unavailable Lew PLUMBER MAINTENANCE, Angeline Attending Unavailable Malys, Chasity Primary Care [...] (17 sources) Erythromycin Drug Allergy 2 Intolerance, [facility] (1 source) Penicillins Drug Allergy 2 Intolerance [facility] (16 sources) Codeine Drug Allergy 5 [facility] (7 sources) Penicillins Allergy to substance 5 [facility] (9 sources) Penicillins Drug Allergy 2 [facility] (6 sources) Non-steroidal anti-inflammator y agent Propensity to adverse reactions 5 [facility] (6 sources) pineapple allergenic extract Drug Allergy [address] [facility] (6 sources) vanilla lagunas allergenic extract Drug Allergy 5 Hives, Itching [facility] (6 sources) Wound Dressing Adhesive Propensity to adverse reactions 5 [facility] (1 source) Codeine Drug Allergy 5 [facility] (1 source) Erythromycin Drug Allergy 5 [facility] (1 source) Penicillins Drug allergy (disorder) 5 [facility] Medications Current Medications Medication [...] hours as needed for pain HYDROcodone-acetami nophen ([place]) 5-325 MG tablet Indications: Lung nodule Take 1 tablet by mouth every 4 hours as needed for moderate pain (4-6) for up to 5 days. 20 tablet 09/25/2024 09/30/2024 Active Start: 09-21-2024 End: 09-25-2024 take 1 tablet by mouth every four hours as needed for pain HYDROcodone-acetaminophen ([place]) 5-325 MG per tablet 1 tablet Calcium [...] Take 1 tablet by mouth daily. Active Errtgxzdhhf-Bycdiftsc-Ffaadr er (4 sources) Anticholinergic, Corticosteroid, beta2-Adrenergic Agonist [...] Oral, Every 6 hours, First dose on [facility] 09/20/24 at 1800, Phase II/On Unit, Maximum dose of acetaminophen is 4000 mg from all sources in 24 hours. Start: 09-20-2024 End: 09-20-2024 1,000 mg, Oral, Once, On [facility] 09/20/24 at 1015, For 1 dose, Preprocedure, Administer 60 minutes prior to surgery. Start: 09-20-2024 End: 09-20-2024 1,000 mg, Oral, Once, On [facility] 09/20/24 at 1015, For 1 dose, Preprocedure, [...] 0900 Start: 07-30-2024 take 1 capsule by [facility] once daily cetirizine HCl ( ZYRTEC ORAL) Take by mouth. 0 Active Comment on above: Take by mouth. 1 ml dexamethasone phosphate 10 mg/ml injection (1 source) Corticosteroid Start: 09-20-2024 End: 09-20-2024 IntraVENous, As needed, Starting on Ирина 09/20/24 at 1335, Anesthesia Intraprocedure mmhXUSJZzjhra-kcqsvhcehgw-b pinephrine (TAP) syringe (2 sources) Start: 09-20-2024 [...] 1646 docusate sodium 50 mg / sennosides, group home 8.6 mg oral tablet (4 sources) Start: [...] chloride 0.9 % 30 mL (1 mg/mL) WASHER REPAIRMAN (2 sources) Start: 09-20-2024 End: 09-21-2024 WASHER REPAIRMAN Dose: 0.3 mg, Lockout Interval: 15 Minutes, Basal (Continuous) Dose: 0 mg/hr, One Hour (Max) Limit: 1.2 mg, Loading Dose: 0 mg, IntraVENous, Continuous, Starting on Ирина 09/20/24 at 1845, Do NOT administer any narcotics in addition to WASHER REPAIRMAN unless directed to do so by an [...] at 1428, Anesthesia Intraprocedure polyethylene glycol 3350 39023 mg powder for oral solution (4 sources) [...] at 166.7 mL/hr, Administer over 90 Minutes, Curtain Drier to O.R., On Ирина 09/20/24 at 1015, For 1 dose, Preprocedure, Administer within 1 hour prior to incision. premix bag, Suspected Indication (Select all that apply): Surgical Prophylaxis, Indications: Default Settings:Auto-dosed by Weight Curtain Drier to O.R x 1 dose Auto-dosed: Pt [...] 03-15-2025 Chronic Other aftercare (1 source) Other custodial (current) drug therapy; Translations: [Other custodial (current) drug therapy] Onset: 03-18-2025 Episodic Other [...] 03-15-2025 Anti-TG AB < 1.0 Normal 0.0-0.9 [facility] Comment on above: Result Comment: Thyr oglobulin Antibody measured by Jim Adrian Methodology It should be noted that the presence of thyroglobulin antibodies may not be pathogenic nor diagnostic, especially at very low levels. The assay diesel roller operator has found that four percent of individuals without evidence of thyroid disease or autoimmunity will have positive TgAb levels up to 4 IU/mL. Performed By: #### L 100.0100, L3300.6820, L500.4058 #### [facility] [address] [place], [address] THYROGLOB QUANT 21.0 ng/mL Normal 1.5-38.5 [facility] Comment on above: Result Comment: Acco rding [...] is 0.1 ng/mL Thyroglobulin measured by Jim Adrian Immunometric Assay Performed at: [facility] [address] [id number] Voltage Inspector: Haris Sheridan PhD, Phone: [phone] Performed By: #### L 100.0100, L3300.6820, L500.4050 #### [facility] [address] [place], [address] 36on 03-14-2025 36 We have been unable to reach your patient to schedule their testing. Test Name: Ct 1st Attempt: 03/12 pt will call back to schedule Normal [facility] CBC W/Diff, Automatedon 110 Absolute Lymph 1.09 X10 3/uL Normal 0.83-4.51 [facility] Comment on above: Performed By: #### L 100.0100, L3300.6820, L500.4050 #### [facility] [address] [place], [address] Absolute Neut 3.2 X10 3/uL Normal 2.0-7.7 [facility] Comment on above: Performed By: #### L 100.0100, L3300.6820, L500.4050 #### [facility] [address] [place], [address] Basophils/100 WBC (Bld) 1.0 % Normal 0-1 [facility] Comment on above: Performed By: #### L 100.0100, L3300.6820, L500.4050 #### [facility] [address] [place], [address] Eosinophils/100 WBC (Bld) 3.4 % Normal 0-5 [facility] Comment on above: Performed By: #### L 100.0100, L3300.6820, L500.4050 #### [facility] [address] [place], [address] Erythrocyte distribution width (RBC) [Ratio] 13.9 % Normal 11.6-14.6 [facility] Comment on above: Performed By: #### L 100.0100, L3300.6820, L500.4050 #### [facility] [address] [place], [address] Hematocrit (Bld) [Volume fraction] 40.6 % Normal 37-47 [facility] Comment on above: Performed By: #### L 100.0100, L3300.6820, L500.4050 #### [facility] [address] [place], [address] Hemoglobin (Bld) [Mass/Vol] 13.0 g/dL Normal 12.0-15.0 [facility] Comment on above: Performed By: #### L 100.0100, L3300.6820, L500.4050 #### [facility] [address] [place], [address] IG% 0.400 Normal 0.0-0.9 [facility] Comment on above: Result Comment: IG% - Immature Granulocytes (promyelocytes, myelocytes and metamyelocytes) > 1% indicates that a LEFT SHIFT is Present. Performed By: #### L 100.0100, L3300.6820, L500.4050 #### [facility] [address] [place], [address] Lymphocytes/100 WBC (Bld) 21.8 % Normal 19-41 [facility] Comment on above: Performed By: #### L 100.0100, L3300.6820, L500.4050 #### [facility] [address] [place], [address] MCH (RBC) [Entitic mass] 28.4 pg Normal 27.0-32.0 [facility] Comment on above: Performed By: #### L 100.0100, L3300.6820, L500.4050 #### [facility] [address] [place], [address] MCHC (RBC) [Mass/Vol] 32.0 g/dL Normal 32-36 [facility] Comment on above: Performed By: #### L 100.0100, L3300.6820, L500.4050 #### [facility] [address] [place], [address] MCV (RBC) [Entitic vol] 88.6 fL Normal 81-99 [facility] Comment on above: Performed By: #### L 100.0100, L3300.6820, L500.4050 #### [facility] [address] [place], [address] Monocytes/100 WBC (Bld) 9.6 % Normal 0-10 [facility] Comment on above: Performed By: #### L 100.0100, L3300.6820, L500.4050 #### [facility] [address] [place], [address] Neutrophils/100 WBC (Bld) 63.8 % Normal 47-70 [facility] Comment on above: Performed By: #### L 100.0100, L3300.6820, L500.4050 #### [facility] [address] [place], [address] Nucleated RBC (Bld) [#/Vol] 0 10*3/uL Normal 0-5 [facility] Comment on above: Performed By: #### L 100.0100, L3300.6820, L500.4050 #### [facility] [address] [place], [address] Platelet mean volume (Bld) [Entitic vol] 12.2 fL High 6.2-12.0 [facility] Comment on above: Performed By: #### L 100.0100, L3300.6820, L500.4050 #### [facility] [address] [place], [address] Platelets (Bld) [#/Vol] 316 10*3/uL Normal 150-450 [facility] Comment on above: Performed By: #### L 100.0100, L3300.6820, L500.4050 #### [facility] [address] [place], [address] RBC (Bld) [#/Vol] 4.58 10*6/uL Normal 4.2-5.4 [facility] Comment on above: Performed By: #### L 100.0100, L3300.6820, L500.4050 #### [facility] [address] [place], [address] RDW SD 44.7 fl High 35.1-43.9 [facility] Comment on above: Performed By: #### L 100.0100, L3300.6820, L500.4050 #### [facility] [address] [place], [address] WBC (Bld) [#/Vol] 5.0 10*3/uL Normal 4.4-11.0 [facility] Comment on above: Performed By: #### L 100.0100, L3300.6820, L500.4050 #### [facility] [address] [place], [address] Comprehensive Metabolic Prof ilon 03-14-2025 Albumin [Mass/Vol] 4.4 g/dL Normal 3.4-4.8 [facility] Comment on above: Performed By: #### L 100.0100, L3300.6820, L500.4050 #### [facility] [address] [place], [address] Albumin/Globulin [Mass ratio] 1.9 {ratio} Normal 0.9-2.4 [facility] Comment on above: Performed By: #### L 100.0100, L3300.6820, L500.4050 #### [facility] [address] [place], [address] ALK PHOS 123 U/L High 35-104 [facility] Comment on above: Performed By: #### L 100.0100, L3300.6820, L500.4050 #### [facility] [address] [place], [address] ALT [Catalytic activity/Vol] 26 U/L Normal <=34 [facility] Comment on above: Performed By: #### L 100.0100, L3300.6820, L500.4050 #### [facility] [address] [place], [address] AST [Catalytic activity/Vol] 22 U/L Normal <=31 [facility] Comment on above: Performed By: #### L 100.0100, L3300.6820, L500.4050 #### [facility] [address] [place], [address] Bilirubin [Mass/Vol] 0.37 mg/dL Normal 0.00-1.30 [facility] Comment on above: Performed By: #### L 100.0100, L3300.6820, L500.4050 #### [facility] [address] [place], [address] BUN/CRE 13.1 RATIO Normal 10-20 [facility] Comment on above: Performed By: #### L 100.0100, L3300.6820, L500.4050 #### [facility] [address] [place], [address] Calcium [Mass/Vol] 9.6 mg/dL Normal 7.6-11.0 [facility] Comment on above: Performed By: #### L 100.0100, L3300.6820, L500.4050 #### [facility] [address] [place], [address] Chloride [Moles/Vol] 104 mmol/L Normal 98-108 [facility] Comment on above: Performed By: #### L 100.0100, L3300.6820, L500.4050 #### [facility] [address] [place], [address] CO2 [Moles/Vol] 23.5 mmol/L Normal 21.0-32.0 [facility] Comment on above: Performed By: #### L 100.0100, L3300.6820, L500.4050 #### [facility] [address] [place], [address] Creatinine [Mass/Vol] 0.79 mg/dL Normal 0.70-1.20 [facility] Comment on above: Performed By: #### L 100.0100, L3300.6820, L500.4050 #### [facility] [address] [place], [address] GAP 11 Normal 5-15 [facility] Comment on above: Performed By: #### L 100.0100, L3300.6820, L500.4050 #### [facility] [address] [place], [address] GFR/1.73 sq M.predicted among non-blacks MDRD (S/P/Bld) [Vol rate/Area] 84 mL/min/{1.73_m2} Normal >60 [facility] Comment on above: Result Comment: mL/m in/1.73m2 CKD-EPI Creatinine Equation (2020) Performed By: #### L 100.0100, L3300.6820, L500.4050 #### [facility] [address] [place], [address] Globulin (S) [Mass/Vol] 2.4 g/dL Normal 2.2-4.2 [facility] Comment on above: Performed By: #### L 100.0100, L3300.6820, L500.4050 #### [facility] [address] [place], [address] Glucose [Mass/Vol] 91 mg/dL Normal 70-99 [facility] Comment on above: Performed By: #### L 100.0100, L3300.6820, L500.4050 #### [facility] [address] [place], [address] Potassium [Moles/Vol] 4.0 mmol/L Normal 3.3-5.1 [facility] Comment on above: Performed By: #### L 100.0100, L3300.6820, L500.4050 #### [facility] [address] [place], [address] Sodium [Moles/Vol] 139 mmol/L Normal 133-145 [facility] Comment on above: Performed By: #### L 100.0100, L3300.6820, L500.4050 #### [facility] [address] [place], [address] T PROT 6.7 g/dL Normal 5.9-8.4 [facility] Comment on above: Performed By: #### L 100.0100, L3300.6820, L500.4050 #### [facility] [address] [place], [address] Urea nitrogen [Mass/Vol] 10 mg/dL Normal 4-19 [facility] Comment on above: Performed By: #### L 100.0100, L3300.6820, L500.4050 #### [facility] [address] [place], [address] L3410.9992on 02-18-2025 [facility]. COMMENT Normal . [facility] Comment on above: Order Comment: [id number] 8ANTI-TPO AB/SERUM FZ Result Comment: Test Ordered: [id number] Anti-TPO Ab (RDL) Anti-TPO Ab (RDL) 38.7 [H ] IU/mL [facility] Reference Range: <9.0 Performed at: [facility] [employer] [address] [place] [id number] Voltage Inspector: Vincent Duncan MD, Phone: [phone] Performed at: [facility] [address] [id number] Voltage Inspector: Haris Sheridan PhD, Phone: [phone] Performed By: #### L 3300.6820, L3410.9992 ####[facility] [address] [place], [address] Thyroglobulin w/Anti-TG ABon 02-08-2025 Anti-TG AB < 1.0 Normal 0.0-0.9 [facility] Comment on above: Result Comment: Thyr oglobulin Antibody measured by Jim Adrian Methodology It should be noted that the presence of thyroglobulin antibodies may not be pathogenic nor diagnostic, especially at very low levels. The assay diesel roller operator has found that four percent of individuals without evidence of thyroid disease or autoimmunity will have positive TgAb levels up to 4 IU/mL. Performed By: #### L 3300.6820, L3410.9992 ####[facility] [address] [place], [place], [id number] THYROGLOB QUANT 32.5 ng/mL Normal 1.5-38.5 [facility] Comment on above: Result Comment: Acco rding [...] is 0.1 ng/mL Thyroglobulin measured by Jim Adrian Immunometric Assay Performed at: [place] [id number] Voltage Inspector: Haris Sheridan PhD, Phone: [phone] Performed By: #### L 3300.6820, L3410.9992 ####[facility] [address] [facility] [address] [place], [place], [id number] Calculated very low density lipoprotein (VLDL) cholesterol measurementOrdered By: Emilie Wheatley on 01-30-2025 Calculated very low density lipoprotein (VLDL) cholesterol measurement 26 mg/dL 5-40 [facility] LDL calc ser/plasOrdered By: Emilie Wheatley on 01-30-2025 Cholesterol in LDL [Mass/Vol] 103 mg/dL [facility] Comment on above: Ryuxosyrhu=977-589 m g/dL & Higher Wcnh=992 mg/dL or greaterFriedwald Equation for LDL-C Lipid Profileon 01-30-2025 CHOL:HDL 3.38 Normal [facility] Comment on above: Performed By: #### L 501.9520, L500.4100, L506.1001 ####[facility] [address] [place], [address] Cholesterol [Mass/Vol] 184 mg/dL Normal <=200 [facility] Comment on above: Result Comment: Chol esterol level, Desirable <200 mg/dL Borderline high cholesterol 200-239 mg/dL High cholesterol >=240 mg/dL Recommendations of the NCEP Adult Treatment Panel for the following risk-cutoff thresholds for the [place] population. Performed By: #### L 501.9520, L500.4100, L506.1001 ####[facility] [address] [place], [address] Cholesterol in HDL [Mass/Vol] 55 mg/dL Normal [facility] Comment on above: Result Comment: Melanie onal Cholesterol Education Program (NCEP) guidelines: <40 mg/dL: Low HDL-cholesterol (major risk factor for CHD) >= 60 mg/dL: High HDL-cholesterol (negative risk factor for CHD) HDL-cholesterol is affected by a number of factors, e.g. smoking, exercise, hormones, sex and age. Performed By: #### L 501.9520, L500.4100, L506.1001 ####[facility] [address] [place], [address] Cholesterol in LDL [Mass/Vol] 103 mg/dL Normal [facility] Comment on above: Result Comment: Bord zautqo=485-905 mg/dL Higher Hjap=985 mg/dL or greater Friedwald Equation for LDL-C Performed By: #### L 501.9520, L500.4100, L506.1001 ####[facility] [address] [place], [address] Cholesterol in VLDL [Mass/Vol] 26 mg/dL Normal 5-40 [facility] Comment on above: Performed By: #### L 501.9520, L500.4100, L506.1001 ####[facility] [address] [place], [address] Triglyceride [Mass/Vol] 132 mg/dL Normal [facility] Comment on above: Result Comment: The drugs N-Acetylcysteine and Metamizole may falsely depress this assay. Normal range: <150 mg/dL Borderline High: 150-199 mg/dL High: 200-499 mg/dL Very High: >500 mg/dL Performed By: #### L 501.9520, L500.4100, L506.1001 ####[facility] [address] [place], [address] Screening total cholesterol/ high density lipoprotein (HDL) cholesterol ratioOrdered By: Emilie Wheatley on 01-30-2025 Cholesterol.total/Cho lesterol in HDL [Mass ratio] 3.38 {ratio} [facility] Serum or plasma cholesterol in HDL measurement (mass/volume)Ordered By: Emilie Wheatley on 01-30-2025 Cholesterol in HDL [Mass/Vol] 55 mg/dL >40 [facility] Comment on above: National Cholesterol Education Program (NCEP) guidelines:<40 mg/dL: Low HDL-cholesterol (major risk factor for CHD)>= 60 mg/dL: High HDL-cholesterol (negative risk factor for CHD)HDL-cholesterol is affected by a number of factors, e.g. smoking, exercise, hormones, sex and age. Serum or plasma cholesterol measurement (mass/volume)Ordered By: Emilie Wheatley on 01-30-2025 Cholesterol [Mass/Vol] 184 mg/dL <201 [facility] Comment on above: Cholesterol level, D esirable <200 mg/dLBorderline high cholesterol 200-239 mg/dLHigh cholesterol >=240 mg/dLRecommendations of the NCEP Adult Treatment Panel for the following risk-cutoff thresholds for the [place] population. TSH DL <= 0.005 mIU/L QnOrde red By: Emilie Wheatley on 01-30-2025 TSH Qn 4.570 uIU/mL High 0.300-4.200 [facility] Thyroid Stim Hormone (TSH)on 01-30-2025 TSH 4.570 uIU/mL High 0.300-4.200 [facility] Comment on above: Performed By: #### L 501.9520, L500.4100, L506.1001 ####[facility] [address] [facility] [place], [address] Triglycerides measurementOrd ered By: Emilie Wheatley on 01-30-2025 Triglyceride [Mass/Vol] 132 mg/dL <199 [facility] Comment on above: The drugs N-Acetylcy steine and Metamizole may falsely depress this assay. Normal range: <150 mg/dLBorderline High: 150-199 mg/dLHigh: 200-499 mg/dLVery High: >500 mg/dL Vitamin D,25 Hydroxyon 01-30 Vitamin D 25-OH 27.7 ng/mL Low 30-100 [facility] Comment on above: Result Comment: Bharti min D Status Deficiency: <20 ng/mL (50nmol/L) Insufficiency: 20-30 ng/mL (50-75 nmol/L) Sufficiency: 30-100 ng/mL (75-250 nmol/L) Toxicity: >100 ng/mL (>250 nmol/L) Performed By: #### L 501.9520, L500.4100, L506.1001 ####[facility] [address] [place], [address] Absolute lymphocyte countOrd ered By: Maria A Carranza on 01-15-2025 Lymphocytes Auto (Unsp spec) [#/Vol] 1.33 10*3/uL 0.83-4.51 [facility] Absolute neutrophil countOrd ered By: Maria A Carranza on 01-15-2025 Neutrophils (Bld) [#/Vol] 4.9 10*3/uL 2.0-7.7 [facility] Anion gap in Serum or Plasma Ordered By: Maria A Carranza on 01-15-2025 Anion gap [Moles/Vol] 16 mmol/L High 5-15 [facility] Automated lymphocyte count a s percentage of total leukocytesOrdered By: Maria A Carranza on 01-15-2025 Lymphocytes/100 WBC Auto (Unsp spec) 18.6 % Low 19-41 [facility] BUN/creatinine ratioOrdered By: Maira A Carranza on 01-15-2025 Urea nitrogen/Creatinine [Mass ratio] 14.1 mg/mg 10-20 [facility] Basophil percentageOrdered B y: Maria A Blanchardpalomo on 01-15-2025 Basophils/100 WBC (Bld) 0.7 % 0-1 [facility] Bilirubin, totalOrdered By: Maria A Blanchardpalomo on 01-15-2025 Bilirubin [Mass/Vol] 0.34 mg/dL 0.00-1.30 [facility] CBC W/Diff, Automatedon Absolute Lymph 1.33 X10 3/uL Normal 0.83-4.51 [facility] Comment on above: Performed By: #### L 100.0100, L500.4050 #### [facility] [address] [place], [address] Absolute Neut 4.9 X10 3/uL Normal 2.0-7.7 [facility] Comment on above: Performed By: #### L 100.0100, L500.4050 #### [facility] [address] [place], [address] Basophils/100 WBC (Bld) 0.7 % Normal 0-1 [facility] Comment on above: Performed By: #### L 100.0100, L500.4050 #### [facility] [address] [place], [address] Eosinophils/100 WBC (Bld) 3.5 % Normal 0-5 [facility] Comment on above: Performed By: #### L 100.0100, L500.4050 #### [facility] [address] [place], [address] Erythrocyte distribution width (RBC) [Ratio] 13.9 % Normal 11.6-14.6 [facility] Comment on above: Performed By: #### L 100.0100, L500.4050 #### [facility] [address] [place], [address] Hematocrit (Bld) [Volume fraction] 41.3 % Normal 37-47 [facility] Comment on above: Performed By: #### L 100.0100, L500.4050 #### [facility] [address] [place], [address] Hemoglobin (Bld) [Mass/Vol] 13.2 g/dL Normal 12.0-15.0 [facility] Comment on above: Performed By: #### L 100.0100, L500.4050 #### [facility] [address] [place], [address] IG% 0.600 Normal 0.0-0.9 [facility] Comment on above: Result Comment: IG% - Immature Granulocytes (promyelocytes, myelocytes and metamyelocytes) > 1% indicates that a LEFT SHIFT is Present. Performed By: #### L 100.0100, L500.4050 #### [facility] [address] [place], [address] Lymphocytes/100 WBC (Bld) 18.6 % Low 19-41 [facility] Comment on above: Performed By: #### L 100.0100, L500.4050 #### [facility] [address] [place], [address] MCH (RBC) [Entitic mass] 28.8 pg Normal 27.0-32.0 [facility] Comment on above: Performed By: #### L 100.0100, L500.4050 #### [facility] [address] [place], [address] MCHC (RBC) [Mass/Vol] 32.0 g/dL Normal 32-36 [facility] Comment on above: Performed By: #### L 100.0100, L500.4050 #### [facility] [address] [place], [address] MCV (RBC) [Entitic vol] 90.2 fL Normal 81-99 [facility] Comment on above: Performed By: #### L 100.0100, L500.4050 #### [facility] [address] [place], [address] Monocytes/100 WBC (Bld) 8.1 % Normal 0-10 [facility] Comment on above: Performed By: #### L 100.0100, L500.4050 #### [facility] [address] [place], [address] Neutrophils/100 WBC (Bld) 68.5 % Normal 47-70 [facility] Comment on above: Performed By: #### L 100.0100, L500.4050 #### [facility] [address] [place], [address] Nucleated RBC (Bld) [#/Vol] 0 10*3/uL Normal 0-5 [facility] Comment on above: Performed By: #### L 100.0100, L500.4050 #### [facility] [address] [place], [address] Platelet mean volume (Bld) [Entitic vol] 11.6 fL Normal 6.2-12.0 [facility] Comment on above: Performed By: #### L 100.0100, L500.4050 #### [facility] [address] [place], [address] Platelets (Bld) [#/Vol] 321 10*3/uL Normal 150-450 [facility] Comment on above: Performed By: #### L 100.0100, L500.4050 #### [facility] [address] [place], [address] RBC (Bld) [#/Vol] 4.58 10*6/uL Normal 4.2-5.4 [facility] Comment on above: Performed By: #### L 100.0100, L500.4050 #### [facility] [address] [place], [address] RDW SD 45.2 fl High 35.1-43.9 [facility] Comment on above: Performed By: #### L 100.0100, L500.4050 #### [facility] [address] [place], [address] WBC (Bld) [#/Vol] 7.2 10*3/uL Normal 4.4-11.0 [facility] Comment on above: Performed By: #### L 100.0100, L500.4050 #### [facility] [address] [place], [address] Carbon dioxide, total [Moles /volume] in Central venous bloodOrdered By: Maria A Carranza on 01-15-2025 CO2 [Moles/Vol] 22.6 mmol/L 21.0-32.0 [facility] Chloride assayOrdered By: Adalid Carranza on 01-15-2025 Chloride [Moles/Vol] 101 mmol/L 98-108 [facility] Comprehensive Metabolic Prof ilon 01-15-2025 Albumin [Mass/Vol] 4.4 g/dL Normal 3.4-4.8 [facility] Comment on above: Performed By: #### L 100.0100, L500.4050 #### [facility] [address] [place], [address] Albumin/Globulin [Mass ratio] 1.6 {ratio} Normal 0.9-2.4 [facility] Comment on above: Performed By: #### L 100.0100, L500.4050 #### [facility] [address] [place], [address] ALK PHOS 166 U/L High 35-104 [facility] Comment on above: Performed By: #### L 100.0100, L500.4050 #### [facility] [address] [place], [address] ALT [Catalytic activity/Vol] 29 U/L Normal <=34 [facility] Comment on above: Performed By: #### L 100.0100, L500.4050 #### [facility] [address] [place], [address] AST [Catalytic activity/Vol] 24 U/L Normal <=31 [facility] Comment on above: Performed By: #### L 100.0100, L500.4050 #### [facility] [address] [place], [address] Bilirubin [Mass/Vol] 0.34 mg/dL Normal 0.00-1.30 [facility] Comment on above: Performed By: #### L 100.0100, L500.4050 #### [facility] [address] [place], [address] BUN/CRE 14.1 RATIO Normal 10-20 [facility] Comment on above: Performed By: #### L 100.0100, L500.4050 #### [facility] [address] [place], [address] Calcium [Mass/Vol] 10.0 mg/dL Normal 7.6-11.0 [facility] Comment on above: Performed By: #### L 100.0100, L500.4050 #### [facility] [address] [place], [address] Chloride [Moles/Vol] 101 mmol/L Normal 98-108 [facility] Comment on above: Performed By: #### L 100.0100, L500.4050 #### [facility] [address] [place], [address] CO2 [Moles/Vol] 22.6 mmol/L Normal 21.0-32.0 [facility] Comment on above: Performed By: #### L 100.0100, L500.4050 #### [facility] [address] [place], [address] Creatinine [Mass/Vol] 0.82 mg/dL Normal 0.70-1.20 [facility] Comment on above: Performed By: #### L 100.0100, L500.4050 #### [facility] [address] [place], [address] GAP 16 High 5-15 [facility] Comment on above: Performed By: #### L 100.0100, L500.4050 #### [facility] [address] [place], [address] GFR/1.73 sq M.predicted among non-blacks MDRD (S/P/Bld) [Vol rate/Area] 80 mL/min/{1.73_m2} Normal >60 [facility] Comment on above: Result Comment: mL/m in/1.73m2 CKD-EPI Creatinine Equation (2020) Performed By: #### L 100.0100, L500.4050 #### [facility] [address] [place], [address] Globulin (S) [Mass/Vol] 2.7 g/dL Normal 2.2-4.2 [facility] Comment on above: Performed By: #### L 100.0100, L500.4050 #### [facility] [address] [place], [address] Glucose [Mass/Vol] 92 mg/dL Normal 70-99 [facility] Comment on above: Performed By: #### L 100.0100, L500.4050 #### [facility] [address] [place], [address] Potassium [Moles/Vol] 4.3 mmol/L Normal 3.3-5.1 [facility] Comment on above: Performed By: #### L 100.0100, L500.4050 #### [facility] [address] [place], [address] Sodium [Moles/Vol] 139 mmol/L Normal 133-145 [facility] Comment on above: Performed By: #### L 100.0100, L500.4050 #### [facility] [address] [place], [address] T PROT 7.1 g/dL Normal 5.9-8.4 [facility] Comment on above: Performed By: #### L 100.0100, L500.4050 #### [facility] [address] [place], [address] Urea nitrogen [Mass/Vol] 12 mg/dL Normal 4-19 [facility] Comment on above: Performed By: #### L 100.0100, L500.4050 #### [facility] [address] [place], [address] Eosinophil percentageOrdered By: Maria A Carranza on 01-15-2025 Eosinophils/100 WBC (Bld) 3.5 % 0-5 [facility] Erythrocyte distribution wid th ratioOrdered By: [facility] on 01-15-2025 Erythrocyte distribution width (RBC) [Ratio] 13.9 % 11.6-14.6 [facility] Erythrocyte distribution wid th standard deviationOrdered By: Maria A Carranza on 01-15-2025 Erythrocyte distribution width (RBC) [Ratio] 45.2 fl High 35.1-43.9 [facility] Glomerular filtration rate ( GFR) estimation/1.73 sq m using serum, plasma, or whole bOrdered By: Maria A Carranza on 01-15-2025 GFR/1.73 sq M.predicted among non-blacks MDRD (S/P/Bld) [Vol rate/Area] 80 mL/min/{1.73_m2} >60 [facility] Comment on above: mL/min/1.73m2 CKD-EP I Creatinine Equation (2020) Hematocrit Auto (Bld) [Volum e fraction]Ordered By: Maria A Carranza on 01-15-2025 Hematocrit (Bld) [Volume fraction] 41.3 % 37-47 [facility] Hemoglobin measurementOrdere d By: Maria A Carranza on 01-15-2025 Hemoglobin (Bld) [Mass/Vol] 13.2 g/dL 12.0-15.0 [facility] Immature granulocytes/100 WB C Auto (Bld)Ordered By: Maria A Carranza on 01-15-2025 Immature granulocytes/100 WBC (Bld) 0.600 % 0.0-0.9 [facility] Comment on above: IG% - Immature Granu locytes (promyelocytes, myelocytes and metamyelocytes) > 1% indicates that a LEFT SHIFT is Present. Laboratory - Chemistry and C hemistry - challengeOrdered By: Maria A Carranza on 01-15-2025 AST [Catalytic activity/Vol] 24 U/L <32 [facility] MCV (mean corpuscular volume ) determinationOrdered By: Maria A Carranza on 01-15-2025 MCV (RBC) [Entitic vol] 90.2 fL 81-99 [facility] Mean corpuscular hemoglobin (MCH) determinationOrdered By: Maria A Carranza on 01-15-2025 MCH (RBC) [Entitic mass] 28.8 pg 27.0-32.0 [facility] Mean corpuscular hemoglobin concentration (MCHC) determinationOrdered By: Maria A Carranza on 01-15-2025 MCHC (RBC) [Mass/Vol] 32.0 g/dL 32-36 [facility] Mean platelet volume determi nationOrdered By: Maria A Carranza on 01-15-2025 Platelet mean volume (Bld) [Entitic vol] 11.6 fL 6.2-12.0 [facility] Monocyte percentageOrdered B y: Maria A Carranza on 01-15-2025 Monocytes/100 WBC (Bld) 8.1 % 0-10 [facility] Neutrophil percentageOrdered By: Maria A Carranza on 01-15-2025 Neutrophils/100 WBC (Bld) 68.5 % 47-70 [facility] Nucleated red blood cell per centageOrdered By: Maria A Carranza on 01-15-2025 Nucleated RBC/100 WBC (Bld) [Ratio] 0 % 0-5 [facility] Platelet countOrdered By: Adalid Carranza on 01-15-2025 Platelets (Bld) [#/Vol] 321 10*3/uL 150-450 [facility] Potassium measurement (mass/ volume)Ordered By: Maria A Carranza on 01-15-2025 Potassium (Unsp spec) [Mass/Vol] 4.3 mmol/L 3.3-5.1 [facility] RBC Auto (Bld) [#/Vol]Ordere d By: Maria A Carranza on 01-15-2025 RBC (Bld) [#/Vol] 4.58 10*6/uL 4.2-5.4 [facility] Serum creatinine measurement (mass/volume)Ordered By: Maria A Carranza on 01-15-2025 Creatinine [Mass/Vol] 0.82 mg/dL 0.70-1.20 [facility] Serum globulin measurementOr dered By: Maria A Carranza on 01-15-2025 Globulin (S) [Mass/Vol] 2.7 g/dL 2.2-4.2 [facility] Serum glucose measurement (m ass/volume)Ordered By: Maria A Carranza on 01-15-2025 Glucose [Mass/Vol] 92 mg/dL 70-99 [facility] Serum or plasma alanine bennett otransferase (ALT) measurementOrdered By: Maria A Carranza on 01-15-2025 ALT [Catalytic activity/Vol] 29 U/L <35 [facility] Serum or plasma albumin kylah urement (mass/volume)Ordered By: Maria A Carranza on 01-15-2025 Albumin [Mass/Vol] 4.4 g/dL 3.4-4.8 [facility] Serum or plasma albumin/glob ulin mass ratioOrdered By: Maria A Carranza on 01-15-2025 Albumin/Globulin [Mass ratio] 1.6 {ratio} 0.9-2.4 [facility] Serum or plasma alkaline asmita sphatase measurementOrdered By: Maria A Carranza on 01-15-2025 ALP [Catalytic activity/Vol] 166 U/L High 35-104 [facility] Serum or plasma calcium kylah urement (mass/volume)Ordered By: Maria A Carranza on 01-15-2025 Calcium [Mass/Vol] 10.0 mg/dL 7.6-11.0 [facility] Serum or plasma urea nitroge n measurement (mass/volume)Ordered By: Maria A Carranza on 01-15-2025 Urea nitrogen [Mass/Vol] 12 mg/dL 4-19 [facility] Sodium levelOrdered By: Jing Carranza on 01-15-2025 Sodium [Moles/Vol] 139 mmol/L 133-145 [facility] Total proteinOrdered By: Jana Carranza on 01-15-2025 Protein [Mass/Vol] 7.1 g/dL 5.9-8.4 [facility] White blood cell (WBC) count Ordered By: Maria A Carranza on 01-15-2025 WBC (Bld) [#/Vol] 7.2 10*3/uL 4.4-11.0 [facility] Absolute lymphocyte countOrd ered By: Maria A Carranza on 11-27-2024 Lymphocytes Auto (Unsp spec) [#/Vol] 1.56 10*3/uL 0.83-4.51 [facility] Absolute neutrophil countOrd ered By: Maria A Carranza on 11-27-2024 Neutrophils (Bld) [#/Vol] 5.9 10*3/uL 2.0-7.7 [facility] Anion gap in Serum or Plasma Ordered By: Maria A Carranza on 11-27-2024 Anion gap [Moles/Vol] 13 mmol/L 5-15 [facility] Automated lymphocyte count a s percentage of total leukocytesOrdered By: Maria A Carranza on 11-27-2024 Lymphocytes/100 WBC Auto (Unsp spec) 18.2 % Low 19-41 [facility] BUN/creatinine ratioOrdered By: Maria A Carranza on 11-27-2024 Urea nitrogen/Creatinine [Mass ratio] 17.5 mg/mg 10-20 [facility] Basophil percentageOrdered B y: Maria A Carranza on 11-27-2024 Basophils/100 WBC (Bld) 0.7 % 0-1 [facility] Bilirubin, totalOrdered By: Maria A Carranza on 11-27-2024 Bilirubin [Mass/Vol] 0.40 mg/dL 0.00-1.30 [facility] CBC W/Diff, Automatedon 07-2 Absolute Lymph 1.56 X10 3/uL Normal 0.83-4.51 [facility] Comment on above: Performed By: #### L 500.4050, L100.0100 ####[facility] [address] [place], [address] Absolute Neut 5.9 X10 3/uL Normal 2.0-7.7 [facility] Comment on above: Performed By: #### L 500.4050, L100.0100 ####[facility] [address] [place], [address] Basophils/100 WBC (Bld) 0.7 % Normal 0-1 [facility] Comment on above: Performed By: #### L 500.4050, L100.0100 ####[facility] [address] [place], [address] Eosinophils/100 WBC (Bld) 2.7 % Normal 0-5 [facility] Comment on above: Performed By: #### L 500.4050, L100.0100 ####[facility] [address] [place], [address] Erythrocyte distribution width (RBC) [Ratio] 12.8 % Normal 11.6-14.6 [facility] Comment on above: Performed By: #### L 500.4050, L100.0100 ####[facility] [address] [place], [address] Hematocrit (Bld) [Volume fraction] 42.5 % Normal 37-47 [facility] Comment on above: Performed By: #### L 500.4050, L100.0100 ####[facility] [address] [place], [address] Hemoglobin (Bld) [Mass/Vol] 13.4 g/dL Normal 12.0-15.0 [facility] Comment on above: Performed By: #### L 500.4050, L100.0100 ####[facility] [address] [place], [address] IG% 0.300 Normal 0.0-0.9 [facility] Comment on above: Result Comment: IG% - Immature Granulocytes (promyelocytes, myelocytes and metamyelocytes) > 1% indicates that a LEFT SHIFT is Present. Performed By: #### L 500.4050, L100.0100 ####[facility] [address] [place], [address] Lymphocytes/100 WBC (Bld) 18.2 % Low 19-41 [facility] Comment on above: Performed By: #### L 500.4050, L100.0100 ####[facility] [address] [place], [address] MCH (RBC) [Entitic mass] 28.8 pg Normal 27.0-32.0 [facility] Comment on above: Performed By: #### L 500.4050, L100.0100 ####[facility] [address] [place], [address] MCHC (RBC) [Mass/Vol] 31.5 g/dL Low 32-36 [facility] Comment on above: Performed By: #### L 500.4050, L100.0100 ####[facility] [address] [place], [address] MCV (RBC) [Entitic vol] 91.2 fL Normal 81-99 [facility] Comment on above: Performed By: #### L 500.4050, L100.0100 ####[facility] [address] [place], [address] Monocytes/100 WBC (Bld) 9.2 % Normal 0-10 [facility] Comment on above: Performed By: #### L 500.4050, L100.0100 ####[facility] [address] [place], [address] Neutrophils/100 WBC (Bld) 68.9 % Normal 47-70 [facility] Comment on above: Performed By: #### L 500.4050, L100.0100 ####[facility] [address] [place], [address] Nucleated RBC (Bld) [#/Vol] 0 10*3/uL Normal 0-5 [facility] Comment on above: Performed By: #### L 500.4050, L100.0100 ####[facility] [address] [place], [address] Platelet mean volume (Bld) [Entitic vol] 10.7 fL Normal 6.2-12.0 [facility] Comment on above: Performed By: #### L 500.4050, L100.0100 ####[facility] [address] [place], [address] Platelets (Bld) [#/Vol] 358 10*3/uL Normal 150-450 [facility] Comment on above: Performed By: #### L 500.4050, L100.0100 ####[facility] [address] [place], [address] RBC (Bld) [#/Vol] 4.66 10*6/uL Normal 4.2-5.4 [facility] Comment on above: Performed By: #### L 500.4050, L100.0100 ####[facility] [address] [place], [address] RDW SD 42.3 fl Normal 35.1-43.9 [facility] Comment on above: Performed By: #### L 500.4050, L100.0100 ####[facility] [address] [place], [address] WBC (Bld) [#/Vol] 8.6 10*3/uL Normal 4.4-11.0 [facility] Comment on above: Performed By: #### L 500.4050, L100.0100 ####[facility] [address] [place], [address] Carbon dioxide, total [Moles /volume] in Central venous bloodOrdered By: Maria A Carranza on 11-27-2024 CO2 [Moles/Vol] 24.6 mmol/L 21.0-32.0 [facility] Chloride assayOrdered By: Adalid Carranza on 11-27-2024 Chloride [Moles/Vol] 101 mmol/L 98-108 [facility] Comprehensive Metabolic Prof ilon 11-27-2024 Albumin [Mass/Vol] 4.5 g/dL Normal 3.4-4.8 [facility] Comment on above: Performed By: #### L 500.4050, L100.0100 ####[facility] [address] [place], [address] Albumin/Globulin [Mass ratio] 1.7 {ratio} Normal 0.9-2.4 [facility] Comment on above: Performed By: #### L 500.4050, L100.0100 ####[facility] [address] [place], [address] ALK PHOS 162 U/L High 35-104 [facility] Comment on above: Performed By: #### L 500.4050, L100.0100 ####[facility] [address] [place], [address] ALT [Catalytic activity/Vol] 28 U/L Normal <=34 [facility] Comment on above: Performed By: #### L 500.4050, L100.0100 ####[facility] [address] [place], [address] AST [Catalytic activity/Vol] 25 U/L Normal <=31 [facility] Comment on above: Performed By: #### L 500.4050, L100.0100 ####[facility] [address] [place], [address] Bilirubin [Mass/Vol] 0.40 mg/dL Normal 0.00-1.30 [facility] Comment on above: Performed By: #### L 500.4050, L100.0100 ####[facility] [address] [place], [address] BUN/CRE 17.5 RATIO Normal 10-20 [facility] Comment on above: Performed By: #### L 500.4050, L100.0100 ####[facility] [address] [place], [address] Calcium [Mass/Vol] 10.0 mg/dL Normal 7.6-11.0 [facility] Comment on above: Performed By: #### L 500.4050, L100.0100 ####[facility] [address] [place], [address] Chloride [Moles/Vol] 101 mmol/L Normal 98-108 [facility] Comment on above: Performed By: #### L 500.4050, L100.0100 ####[facility] [address] [place], [address] CO2 [Moles/Vol] 24.6 mmol/L Normal 21.0-32.0 [facility] Comment on above: Performed By: #### L 500.4050, L100.0100 ####[facility] [address] [place], [address] Creatinine [Mass/Vol] 0.79 mg/dL Normal 0.70-1.20 [facility] Comment on above: Performed By: #### L 500.4050, L100.0100 ####[facility] [address] [place], [address] GAP 13 Normal 5-15 [facility] Comment on above: Performed By: #### L 500.4050, L100.0100 ####[facility] [address] [place], [address] GFR/1.73 sq M.predicted among non-blacks MDRD (S/P/Bld) [Vol rate/Area] 85 mL/min/{1.73_m2} Normal >60 [facility] Comment on above: Result Comment: mL/m in/1.73m2 CKD-EPI Creatinine Equation (2020) Performed By: #### L 500.4050, L100.0100 ####[facility] [address] [place], [address] Globulin (S) [Mass/Vol] 2.7 g/dL Normal 2.2-4.2 [facility] Comment on above: Performed By: #### L 500.4050, L100.0100 ####[facility] [address] [place], [address] Glucose [Mass/Vol] 92 mg/dL Normal 70-99 [facility] Comment on above: Performed By: #### L 500.4050, L100.0100 ####[facility] [address] [place], [address] Potassium [Moles/Vol] 4.3 mmol/L Normal 3.3-5.1 [facility] Comment on above: Performed By: #### L 500.4050, L100.0100 ####[facility] [address] [place], [address] Sodium [Moles/Vol] 139 mmol/L Normal 133-145 [facility] Comment on above: Performed By: #### L 500.4050, L100.0100 ####[facility] [address] [place], [address] T PROT 7.3 g/dL Normal 5.9-8.4 [facility] Comment on above: Performed By: #### L 500.4050, L100.0100 ####[facility] [address] [place], [place], [address] Urea nitrogen [Mass/Vol] 14 mg/dL Normal 4-19 [facility] Comment on above: Performed By: #### L 500.4050, L100.0100 ####[facility] [address] [place], [address] Eosinophil percentageOrdered By: Maria A Carranza on 11-27-2024 Eosinophils/100 WBC (Bld) 2.7 % 0-5 [facility] Erythrocyte distribution wid th ratioOrdered By: Maria A Carranza on 11-27-2024 Erythrocyte distribution width (RBC) [Ratio] 12.8 % 11.6-14.6 [facility] Erythrocyte distribution wid th standard deviationOrdered By: Maria A Carranza on 11-27-2024 Erythrocyte distribution width (RBC) [Ratio] 42.3 fl 35.1-43.9 [facility] Glomerular filtration rate ( GFR) estimation/1.73 sq m using serum, plasma, or whole bOrdered By: Maria A Carranza on 11-27-2024 GFR/1.73 sq M.predicted among non-blacks MDRD (S/P/Bld) [Vol rate/Area] 85 mL/min/{1.73_m2} >60 [facility] Comment on above: mL/min/1.73m2 CKD-EP I Creatinine Equation (2020) Hematocrit Auto (Bld) [Volum e fraction]Ordered By: Maria A Carranza on 11-27-2024 Hematocrit (Bld) [Volume fraction] 42.5 % 37-47 [facility] Hemoglobin measurementOrdere d By: Maria A Carranza on 11-27-2024 Hemoglobin (Bld) [Mass/Vol] 13.4 g/dL 12.0-15.0 [facility] Immature granulocytes/100 WB C Auto (Bld)Ordered By: Maria A Carranza on 11-27-2024 Immature granulocytes/100 WBC (Bld) 0.300 % 0.0-0.9 [facility] Comment on above: IG% - Immature Granu locytes (promyelocytes, myelocytes and metamyelocytes) > 1% indicates that a LEFT SHIFT is Present. Laboratory - Chemistry and C hemistry - challengeOrdered By: Maria A Carranza on 11-27-2024 AST [Catalytic activity/Vol] 25 U/L <32 [facility] MCV (mean corpuscular volume ) determinationOrdered By: Maria A Carranza on 11-27-2024 MCV (RBC) [Entitic vol] 91.2 fL 81-99 [facility] Mean corpuscular hemoglobin (MCH) determinationOrdered By: Maria A Carranza on 11-27-2024 MCH (RBC) [Entitic mass] 28.8 pg 27.0-32.0 [facility] Mean corpuscular hemoglobin concentration (MCHC) determinationOrdered By: Maria A Carranza on 11-27-2024 MCHC (RBC) [Mass/Vol] 31.5 g/dL Low 32-36 [facility] Mean platelet volume determi nationOrdered By: Maria A Carranza on 11-27-2024 Platelet mean volume (Bld) [Entitic vol] 10.7 fL 6.2-12.0 [facility] Monocyte percentageOrdered B y: Maria A Carranza on 11-27-2024 Monocytes/100 WBC (Bld) 9.2 % 0-10 [facility] Neutrophil percentageOrdered By: Maria A Carranza on 11-27-2024 Neutrophils/100 WBC (Bld) 68.9 % 47-70 [facility] Nucleated red blood cell per centageOrdered By: Maria A Carranza on 11-27-2024 Nucleated RBC/100 WBC (Bld) [Ratio] 0 % 0-5 [facility] Platelet countOrdered By: Adalid Carranza on 11-27-2024 Platelets (Bld) [#/Vol] 358 10*3/uL 150-450 [facility] Potassium measurement (mass/ volume)Ordered By: Maria A Carranza on 11-27-2024 Potassium (Unsp spec) [Mass/Vol] 4.3 mmol/L 3.3-5.1 [facility] RBC Auto (Bld) [#/Vol]Ordere d By: Maria A Carranza on 11-27-2024 RBC (Bld) [#/Vol] 4.66 10*6/uL 4.2-5.4 [facility] Serum creatinine measurement (mass/volume)Ordered By: Maria A Carranza on 11-27-2024 Creatinine [Mass/Vol] 0.79 mg/dL 0.70-1.20 [facility] Serum globulin measurementOr dered By: Maria A Carranza on 11-27-2024 Globulin (S) [Mass/Vol] 2.7 g/dL 2.2-4.2 [facility] Serum glucose measurement (m ass/volume)Ordered By: Maria A Carranza on 11-27-2024 Glucose [Mass/Vol] 92 mg/dL 70-99 [facility] Serum or plasma alanine bennett otransferase (ALT) measurementOrdered By: Maria A Carranza on 11-27-2024 ALT [Catalytic activity/Vol] 28 U/L <35 [facility] Serum or plasma albumin kylah urement (mass/volume)Ordered By: Maria A Carranza on 11-27-2024 Albumin [Mass/Vol] 4.5 g/dL 3.4-4.8 [facility] Serum or plasma albumin/glob ulin mass ratioOrdered By: Maria A Carranza on 11-27-2024 Albumin/Globulin [Mass ratio] 1.7 {ratio} 0.9-2.4 [facility] Serum or plasma alkaline asmita sphatase measurementOrdered By: Maria A Carranza on 11-27-2024 ALP [Catalytic activity/Vol] 162 U/L High 35-104 [facility] Serum or plasma calcium kylah urement (mass/volume)Ordered By: Maria A Carranza on 11-27-2024 Calcium [Mass/Vol] 10.0 mg/dL 7.6-11.0 [facility] Serum or plasma urea nitroge n measurement (mass/volume)Ordered By: Maria A Carranza on 11-27-2024 Urea nitrogen [Mass/Vol] 14 mg/dL 4-19 [facility] Sodium levelOrdered By: Jing Carranza on 11-27-2024 Sodium [Moles/Vol] 139 mmol/L 133-145 [facility] Total proteinOrdered By: Jana tammie Carranza on 11-27-2024 Protein [Mass/Vol] 7.3 g/dL 5.9-8.4 [facility] White blood cell (WBC) count Ordered By: Maria A Carranza on 11-27-2024 WBC (Bld) [#/Vol] 8.6 10*3/uL 4.4-11.0 [facility] Pulmonary Visit Reporton Pulmonary Visit Report [facility] [place] [address] [place] [address] OFFICE VISIT Date of Service: 11/07/24 MR#: [id number] Acct: [id number] Name: FOZIA BREEN Rep #: [id number] : 1960 Provider: LIZANDRO Lew Age/Sex: 63/F Location: [facility] [place].PM[facility] Status: Signed Assessment and Plan Assessment and [...] The patient conveys understanding. 11 minutes spent [id number]-uo-albb discussing smoking cessation. Orders: Orders Chest without Contrast 03/09/25 C34.92 - Malignant neoplasm of unspecified part of left bronchus or lung Medications: New tcuhwfcjghf-jcbrrdrri-tnvp nter 100-62.5-25 mcg (Trelegy Ellipta) administer at approximately the same time(s) each day 1 inh inhalation QDAY 60 ea 3RF C34.92 - Malignant neoplasm of unspecified part of left bronchus or lung, J44.9 - Chronic obstructive pulmonary disease, unspecified Plan Details Additional Comments: This note was generated with Bamb[employer] dictation software. It may contain incorrect words, [...] breathing problems. Office note from cardiothoracic surgery [facility] surgical services reviewed. The [...] Pressure Loca (more content not included)... Normal [facility] 36on 10-11-2024 36 Name of caller: Lee Ann Contact phone number: [phone] Relationship to Patient: Employer Provider: Dr Perez Practice: [facility] S[facility] Chief Complaint/Reason for Call: Company needs verification that patient had 09/20/24 procedure -- they faxed over a surgery confirmation form and are asking for it to be faxed [phone] -- not received. Best time of day caller can be reached: AM Patient advised that office/PCP has 24-48 business hours to return their call: No Normal [facility] Office Visiton 10-09-2024 Follow-up visit [id number] Fozia Breen 1960 F Date Provider Department Center 10/09/2024 [id number]-SUBABYLALA [facility]ONZALES [facility] CT None Family History Problem Relation Age of Onset Hypertension Mother Diabetes Mother Asthma Mother Ulcerative colitis Mother Arthritis Mother Coronary artery disease Father Heart attack Father Hypertension Father Heart disease Father Coronary artery disease Brother Heart disease Brother Hypertension Brother Heart attack Brother Family Status - Relation Status Age at Mother Father Brother Level of Service:7[address]50 CT POSTOP FOLLOW UP VISIT RELATED TO ORIGINAL PX Reason for Visit and Comments: Post-op [483] Normal [facility] Progress Noteon 10-09-[address] [facility]: CT SURGEONS [facility] [address] [facility] [address] Dept: [phone] Dept Loc: [phone] Visit type: Established patient - in person [...] like to follow up surveillance with pulm custodial We discussed will order first [address] and then coordinate with pulm in [place] for surveillance -Reviewed current meds -Surgical Incisions: [...] with PCP -Follow up with Pulm in [place] -Plan follow up 6 month for first [...] wants to follow up with Pulm in [place] for surveillance. Agreeable for first to be [...] Invasive Carcinoma Parenchymal (more content not included)... [facility] 36on 10-02-2024 36 Pt s/p [...] new symptoms/concerns arise. Pt verbalized understanding. 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 Chemotherapy and radiation will not be necessary. Radiographic surveillance will be necessary with CT scans every 6 months for 2 years and then annually thereafter. 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 Normal [facility] 30on 09-25-2024 30 Home O2 eval done, p atient did drop sats to [address] Perez visited patient ok for discharge. Normal [facility] [id number] 09-25-2024 [id number] Discharged with home O2. No distress noted. Normal [facility] XR CHEST 1 VIEWon 09-25-2024 XR CHEST 1 VIEW [facility] Name[facility] BREEN : 1960 [id number] Exam Date/Time: 09/25/2024 07:42 Procedure: XR CHEST [...] Electronically Signed Date/Time: 09/25/2024 8:43 AM EDT [facility] XR Chest Single viewon 09-25 No pneumothorax identified following left chest tube removal. Report Dictated on Electronically Signed By: Reji Valverde MD Electronically Signed Date/Time: 09/25/2024 8:43 AM T [facility] Patient Name: FOZIA BREEN : 1960 Exam [...] a pneumothorax. Stable bibasilar atelectasis. Bones: Stable [facility] Reji Valverde M D - [...] Electronically Signed Date/Time: 09/25/2024 8:[address] [facility] Radiology Study observation (narrative) [facility] XR Chest Single viewOrdered By: Reji Valverde on 09-25-2024 [facility] Work Phone: 30on 09-24-2024 30 Problem: Pain [...] discharge needs are met Outcome: Progressing Normal [facility] 30 Chest tubes removed per Dr. Aparicio. Tolerated well. Normal [facility] BASIC METABOLIC PANELon 09-06 Anion gap [Moles/Vol] 9 mmol/L Normal 3-13 [facility] Comment on above: Performed By: #### L AB15 ####[employer] Framer: MAL ARVIZU ([id number])[facility] [place] [address] Calcium [Mass/Vol] 8.9 mg/dL Normal 8.8-10.0 [facility] Comment on above: Performed By: #### L AB15 ####[employer] Framer: MAL ARVIZU ([id number])[facility] [place] [address] Chloride [Moles/Vol] 99 mmol/L Normal 98-107 [facility] Comment on above: Performed By: #### L AB15 ####[employer] Framer: MAL ARVIZU ([id number])[facility])[address] [place] [address] CO2 [Moles/Vol] 28 mmol/L Normal 23-31 [facility] Comment on above: Performed By: #### L AB15 ####[employer] Framer: MAL ARVIZU ([id number])[facility])[address] [place] [address] Creatinine [Mass/Vol] 0.68 mg/dL Normal 0.57-1.11 [facility] Comment on above: Performed By: #### L AB15 ####[employer] Framer: MAL ARVIZU ([id number])[facility])[address] [place] [address] GLOMERULAR FILTRATION RATE ML/MIN/1.73 SQ M.PREDICTED >90.0 Normal >60.0 [facility] Comment on above: Result Comment: Calc ulation based on the Chronic Kidney Disease Epidemiology Collaboration (CKD-EPI) equation refit without adjustment for race Performed By: #### L AB15 ####[employer] Framer: MAL ARVIZU ([id number])[facility])[address] [place] [address] Glucose [Mass/Vol] 121 mg/dL High 82-115 [facility] Comment on above: Performed By: #### L AB15 ####[employer] Framer: MAL ARVIZU ([id number])[facility])[address] [place] [address] Potassium [Moles/Vol] 4.1 mmol/L Normal 3.5-5.1 [facility] Comment on above: Result Comment: [facility] potassium values may be up to 0.5 mmol/L lower than serum values. Performed By: #### L AB15 ####[employer] Framer: MAL ARVIZU ([id number])[facility])[address] [place] [address] Sodium [Moles/Vol] 136 mmol/L Normal 136-145 [facility] Comment on above: Performed By: #### L AB15 ####[employer] Framer: MAL ARVIZU ([id number])[address] Urea nitrogen [Mass/Vol] 13 mg/dL Normal 9-23 [facility] Comment on above: Performed By: #### L AB15 ####[employer] Framer: MAL ARVIZU ([id number])[address] Basic metabolic 1998 panelon 09-24-2024 Anion gap [Moles/Vol] 9 mmol/L 3 - 13 mmol/L [facility] Calcium [Mass/Vol] 8.9 mg/dL 8.8 - 10. 0 mg/dL [facility] Chloride [Moles/Vol] 99 mmol/L 98 - 10 7 mmol/L [facility] CO2 [Moles/Vol] 28 mmol/L 23 - 31 mmol/L [facility] Creatinine [Mass/Vol] 0.68 mg/dL 0.57 - 1.11 mg/dL [facility] GFR/1.73 sq M.predicted (S/P/Bld) [Vol rate/Area] - PINF [facility] Comment on above: Calculation based on the Chronic Kidney Disease Epidemiology Collaboration (CKD-EPI) equation refit without adjustment for race Glucose [Mass/Vol] 121 mg/dL High 82 - 115 mg/dL [facility] Interpretation and review of laboratory results Abnormal [facility] Potassium [Moles/Vol] 4.1 mmol/L 3.5 - 5.1 mmol/L [facility] Comment on above: Plasma potassium roxy ues may be up to 0.5 mmol/L lower than serum values. Sodium [Moles/Vol] 136 mmol/L 136 - 145 mmol/L [facility] Urea nitrogen [Mass/Vol] 13 mg/dL 9 - 23 mg/dL [facility] CBC (HEMOGRAM)on 09-24-2024 Erythrocyte distribution width (RBC) [Ratio] 13.4 % Normal 11.5-15.0 [facility] Comment on above: Performed By: #### L AB294 ####Met[employer] Framer: MAL ARVIZU ([id number])[facility])[address] [place] [address] Hematocrit (Bld) [Volume fraction] 37.5 % Normal 35.0-47.0 [facility] Comment on above: Performed By: #### L AB294 ####[employer] Framer: MAL ARVIZU ([id number])[facility])[address] [place] [address] Hemoglobin (Bld) [Mass/Vol] 12.2 g/dL Normal 11.7-16.0 [facility] Comment on above: Performed By: #### L AB294 ####[employer] Framer: MAL ARVIZU ([id number])[facility])[address] [place] [address] MCH (RBC) [Entitic mass] 30.1 pg Normal 26.0-34.0 [facility] Comment on above: Performed By: #### L AB294 ####[employer] Framer: MAL ARVIZU ([id number])[facility])[address] [place] [address] MCHC 32.5 % Normal 30.5-36.0 [facility] Comment on above: Performed By: #### L AB294 ####[employer] Framer: MAL ARVIZU ([id number])[facility])[address] [place] [address] MCV (RBC) [Entitic vol] 92.6 fL Normal 77.0-99.0 [facility] Comment on above: Performed By: #### L AB294 ####[employer] Framer: MAL ARVIZU ([id number])[facility])[address] [place] [address] Platelet mean volume (Bld) [Entitic vol] 11.0 fL Normal 9.0-12.7 [facility] Comment on above: Performed By: #### L AB294 ####[employer] Framer: MAL ARVIZU ([id number])[facility])[address] [place] [address] Platelets (Bld) [#/Vol] 277 10*3/uL Normal 140-440 [facility] Comment on above: Performed By: #### L AB294 ####[employer] Framer: MAL ARVIZU ([id number])[address] RBC (Bld) [#/Vol] 4.05 10*6/uL Normal 3.80-5.20 [facility] Comment on above: Performed By: #### L AB294 ####Metal [employer] Framer: MAL ARVIZU ([id number])[facility])[address] [place] [address] WBC (Bld) [#/Vol] 8.0 10*3/uL Normal 3.6-10.7 [facility] Comment on above: Performed By: #### L AB294 ####[employer] Framer: MAL ARVIZU ([id number])[address] CBC panel Auto (Bld)on 09-24 Erythrocyte distribution width (RBC) [Ratio] 13.4 % 11.5 - 15.0 % [facility] Hematocrit (Bld) [Volume fraction] 37.5 % 35.0 - 47.0 % [facility] Hemoglobin (Bld) [Mass/Vol] 12.2 g/dL 11.7 - 16.0 g/dL [facility] Interpretation and review of laboratory results Normal [facility] MCH (RBC) [Entitic mass] 30.1 pg 26.0 - 34.[address] [facility] MCHC (RBC) [Mass/Vol] 32.5 % 30.5 - 36.0 % [facility] MCV (RBC) [Entitic vol] 92.6 fL 77.0 - 99.[address] [facility] Platelet mean volume (Bld) [Entitic vol] 11 fL 9.0 - 12.[address] [facility] Platelets (Bld) [#/Vol] 277 10*3/uL 140 - 440 10*3/uL [facility] RBC (Bld) [#/Vol] 4.05 10*6/uL 3.80 - 5.2 0 10*6/uL [facility] WBC (Bld) [#/Vol] 8 10*3/uL 3.6 - 10.7 10*3/uL [facility] Progress Noteon 09-24-2024 Progress Note Left chest tubes rem rema. Occlusive dressing applied. Patient tolerated well. Normal [facility] Progress Note PHYSICAL THERAPY [facility] Treatment Note Name/MRN: Fozia Breen ([id number]) Date of : 1960 Age: 63 y.o. [facility] Discharge Recommendation: Home with assist PRN [...] 24 Minutes (gait x2) Cydney Billings, PT [facility] Progress Note Saw patient [address] removal. Had trace air leak with cough. Plan CT clamp trial [id number], CXR 1630. Can remove CT this pm if no PTX on CXR. Moises Pcaheco MD PGY5, General Surgery Pager #[phone] Normal [facility] XR CHEST 1 VIEWon 09-24-2024 XR [...] Electronically Signed Date/Time: 09/24/2024 4:42 PM EDT [facility] XR CHEST 1 VIEW Patient [...] Signed Date/Time: 09/24/2024 6:[address] [facility] XR Chest Single viewon 09-24 [...] Electronically Signed Date/Time: 09/24/2024 4:42 PM EDT [facility] Jose E Urban MD - [...] Electronically Signed Date/Time: 09/24/2024 4:[address] [facility] Radiology Study observation (narrative) [facility] Left chest tubes. Op acity at the lung bases greater on the left, likely atelectasis Report Dictated on Electronically Signed By: Jani Finnegan MD Electronically Signed Date/Time: 09/24/2024 6:43 AM EDT [facility] Patient Name: FOZIA BREEN DOB: [...] other consolidation. The costophrenic angles are obscured. [facility] Jani Finnegan MD - 09/24/2024 Patient Name: [...] Electronically Signed Date/Time: 09/24/2024 6:43 AM EDT [facility] Radiology Study observation (narrative) [facility] XR Chest Single viewOrdered By: Jose E Urban on 09-24-2024 [employer] [facility] Work Phone: 30on 09-23-2024 30 Problem: Pain [...] discharge needs are met Outcome: Progressing Normal [facility] BASIC METABOLIC PANELon 05- Anion gap [Moles/Vol] 10 mmol/L Normal 3-13 [facility] Comment on above: Performed By: #### L AB15 #### Metal Stud Framer: MAL ARVIZU ([id number]) [facility] [address] [place] [address] Calcium [Mass/Vol] 9.1 mg/dL Normal 8.8-10.0 [facility] Comment on above: Performed By: #### L AB15 #### [employer] Framer: MAL ARVIZU ([id number]) [facility]) [address] [place] [address] [place] Chloride [Moles/Vol] 99 mmol/L Normal 98-107 [facility] Comment on above: Performed By: #### L AB15 #### [employer] Framer: MAL ARVIZU ([id number]) [facility]) [address] [place] [address] [place] CO2 [Moles/Vol] 27 mmol/L Normal 23-31 [facility] Comment on above: Performed By: #### L AB15 #### [employer] Framer: MAL ARVIZU ([id number]) [facility]) [address] [place] [address] [place] Creatinine [Mass/Vol] 0.67 mg/dL Normal 0.57-1.11 [facility] Comment on above: Performed By: #### L AB15 #### Metal [employer] Framer: MAL ARVIZU ([id number]) [facility]) [address] [place] [address] GLOMERULAR FILTRATION RATE ML/MIN/1.73 SQ M.PREDICTED >90.0 Normal >60.0 [facility] Comment on above: Result Comment: Calc ulation based on the Chronic Kidney Disease Epidemiology Collaboration (CKD-EPI) equation refit without adjustment for race Performed By: #### L AB15 #### [employer] Framer: MAL ARVIZU ([id number]) [facility]) [address] [place] [address] Glucose [Mass/Vol] 107 mg/dL Normal 82-115 [facility] Comment on above: Performed By: #### L AB15 #### [employer] Framer: MAL ARVIZU ([id number]) [facility]) [address] [place] [address] Potassium [Moles/Vol] 4.5 mmol/L Normal 3.5-5.1 [facility] Comment on above: Result Comment: [facility] potassium values may be up to 0.5 mmol/L lower than serum values. Performed By: #### L [id number] #### Metal Stud Framer: MAL ARVIZU ([id number]) [facility]) [address] [place] [address] Sodium [Moles/Vol] 136 mmol/L Normal 136-145 [facility] Comment on above: Performed By: #### L AB15 #### Metal Stud Framer: MAL ARVIZU ([id number]) [facility]) [address] [place] [address] Urea nitrogen [Mass/Vol] 15 mg/dL Normal 9-23 [facility] Comment on above: Performed By: #### L [id number] #### Metal Stud Framer: MAL ARVIZU ([id number]) [facility]) [address] [place] [address] Basic metabolic 1998 panelon 09-23-2024 Anion gap [Moles/Vol] 10 mmol/L 3 - 13 mmol/L [facility] Calcium [Mass/Vol] 9.1 mg/dL 8.8 - 10. 0 mg/dL [facility] Chloride [Moles/Vol] 99 mmol/L 98 - 10 7 mmol/L [facility] CO2 [Moles/Vol] 27 mmol/L 23 - 31 mmol/L [facility] Creatinine [Mass/Vol] 0.67 mg/dL 0.57 - 1.11 mg/dL [facility] GFR/1.73 sq M.predicted (S/P/Bld) [Vol rate/Area] - PINF [facility] Comment on above: Calculation based on the Chronic Kidney Disease Epidemiology Collaboration (CKD-EPI) equation refit without adjustment for race Glucose [Mass/Vol] 107 mg/dL 82 - 115 mg/dL [facility] Interpretation and review of laboratory results Normal [facility] Potassium [Moles/Vol] 4.5 mmol/L 3.5 - 5.1 mmol/L [facility] Comment on above: Plasma potassium roxy ues may be up to 0.5 mmol/L lower than serum values. Sodium [Moles/Vol] 136 mmol/L 136 - 145 mmol/L [facility] Urea nitrogen [Mass/Vol] 15 mg/dL 9 - 23 mg/dL [facility] CBC (HEMOGRAM)on 09-23-2024 Erythrocyte distribution width (RBC) [Ratio] 13.5 % Normal 11.5-15.0 [facility] Comment on above: Performed By: #### L [id number] ####Metal Stud Framer: MAL ARVIZU ([id number])[address] Hematocrit (Bld) [Volume fraction] 39.4 % Normal 35.0-47.0 [facility] Comment on above: Performed By: #### L [id number] ####Metal Stud Framer: MAL ARVIZU ([id number])[address] Hemoglobin (Bld) [Mass/Vol] 12.6 g/dL Normal 11.7-16.0 [facility] Comment on above: Performed By: #### L [id number] ####Metal Stud Framer: MAL ARVIZU ([id number])[facility])[address] [place] [address] MCH (RBC) [Entitic mass] 29.9 pg Normal 26.0-34.0 [facility] Comment on above: Performed By: #### L [id number] ####Metal Stud Framer: MAL ARVIZU ([id number])[facility])[address] [place] [address] MCHC 32.0 % Normal 30.5-36.0 [facility] Comment on above: Performed By: #### L [id number] ####Metal Stud Framer: MAL ARVIZU ([id number])[facility])[address] [place] [address] MCV (RBC) [Entitic vol] 93.4 fL Normal 77.0-99.0 [facility] Comment on above: Performed By: #### L [id number] ####Metal Stud Framer: MAL ARVIZU ([id number])[facility])[address] [place] [address] Platelet mean volume (Bld) [Entitic vol] 11.0 fL Normal 9.0-12.7 [facility] Comment on above: Performed By: #### L [id number] ####Metal Stud Framer: MAL ARVIZU ([id number])[facility])[address] [place] [address] Platelets (Bld) [#/Vol] 259 10*3/uL Normal 140-440 [facility] Comment on above: Performed By: #### L [id number] ####Metal Stud Framer: MAL ARVIZU ([id number])[facility])[address] [place] [address] RBC (Bld) [#/Vol] 4.22 10*6/uL Normal 3.80-5.20 [facility] Comment on above: Performed By: #### L [id number] ####Metal Stud Framer: MAL ARVIZU ([id number])[facility])[address] [place] [address] WBC (Bld) [#/Vol] 11.7 10*3/uL High 3.6-10.7 [facility] Comment on above: Performed By: #### L [id number] ####Metal Stud Framer: MAL ARVIZU ([id number])[facility] ([facility])[address] [place] [address] CBC panel Auto (Bld)on 09-23 Erythrocyte distribution width (RBC) [Ratio] 13.5 % 11.5 - 15.0 % [facility] Hematocrit (Bld) [Volume fraction] 39.4 % 35.0 - 47.0 % [facility] Hemoglobin (Bld) [Mass/Vol] 12.6 g/dL 11.7 - 16.0 g/dL [facility] Interpretation and review of laboratory results Abnormal [facility] MCH (RBC) [Entitic mass] 29.9 pg 26.0 - 34.[address] [facility] MCHC (RBC) [Mass/Vol] 32 % 30.5 - 36.0 % [facility] MCV (RBC) [Entitic vol] 93.4 fL 77.0 - 99.[address] [facility] Platelet mean volume (Bld) [Entitic vol] 11 fL 9.0 - 12.[address] [facility] Platelets (Bld) [#/Vol] 259 10*3/uL 140 - 440 10*3/uL [facility] RBC (Bld) [#/Vol] 4.22 10*6/uL 3.80 - 5.2 0 10*6/uL [facility] WBC (Bld) [#/Vol] 11.7 10*3/uL High 3.6 - 10.7 10*3/uL [facility] Progress Noteon 09-23-2024 Progress Note PHYSICAL THERAPY [facility] Treatment Note Name/MRN: Fozia Breen ([id number]) Date of : 1960 Age: 63 y.o. [...] Supervision Good technique, no instability Device(s) used: ArtCorgizzie Ambulation Ambulation 1 Assistive device(s) used: ArtCorgizzZOZI Assist level: SBA Distance (ft): 350ft Quality [...] 31 Minutes (Gait, TP) Nga Noriega PTA [facility] XR CHEST 1 VIEWon 09-23-2024 [...] Electronically Signed Date/Time: 09/23/2024 5:33 AM EDT [facility] XR Chest Single viewon 09-23 1. No significant interval change. Report Dictated on Electronically Signed By: Jamal Dumont MD Electronically Signed Date/Time: 09/23/2024 5:33 AM EDT [facility] Patient Name: FOZIA BREEN : 1960 [...] without significant interval change. No apparent pneumothorax. [facility] Jamal Dumont MD - 09/23/2024 Patient Name: [...] Electronically Signed Date/Time: 09/23/2024 5:33 AM EDT [facility] Radiology Study observation (narrative) [facility] BASIC METABOLIC PANELon 09-06 Anion gap [Moles/Vol] 12 mmol/L Normal 3-13 [facility] Comment on above: Performed By: #### L [id number] ####Metal Stud Framer: MAL ARVIZU ([id number])[facility] ([place] [address] [place] Calcium [Mass/Vol] 9.2 mg/dL Normal 8.8-10.0 [facility] Comment on above: Performed By: #### L AB15 ####Metal Stud Framer: MAL ARVIZU ([id number])[facility])[address] [place] [address] Chloride [Moles/Vol] 99 mmol/L Normal 98-107 [facility] Comment on above: Performed By: #### L AB15 ####Metal Stud Framer: MAL ARVIZU ([id number])[facility])[address] [place] [address] CO2 [Moles/Vol] 24 mmol/L Normal 23-31 [facility] Comment on above: Performed By: #### L AB15 ####Metal Stud Framer: MAL ARVIZU ([id number])[facility])[address] [place] [address] Creatinine [Mass/Vol] 0.75 mg/dL Normal 0.57-1.11 [facility] Comment on above: Performed By: #### L AB15 ####Metal Stud Framer: MAL ARVIZU ([id number])[facility])[address] [place] [address] GLOMERULAR FILTRATION RATE ML/MIN/1.73 SQ M.PREDICTED >90.0 Normal >60.0 [facility] Comment on above: Result Comment: Calc ulation based on the Chronic Kidney Disease Epidemiology Collaboration (CKD-EPI) equation refit without adjustment for race Performed By: #### L AB15 ####Metal Stud Framer: MAL ARVIZU ([id number])[facility])[address] [place] [address] [place] Glucose [Mass/Vol] 121 mg/dL High 82-115 [facility] Comment on above: Performed By: #### L AB15 ####Metal Stud Framer: MAL ARVIZU ([id number])[facility])[address] [place] [address] [place] Potassium [Moles/Vol] 4.7 mmol/L Normal 3.5-5.1 [facility] Comment on above: Result Comment: [facility] potassium values may be up to 0.5 mmol/L lower than serum values. Performed By: #### L AB15 ####Metal Stud Framer: MAL ARVIZU ([id number])[facility] [place] [address] Sodium [Moles/Vol] 135 mmol/L Low 136-145 [facility] Comment on above: Performed By: #### L AB15 ####Metal Stud Framer: MAL ARVIZU ([id number])[facility])[address] [place] [address] Urea nitrogen [Mass/Vol] 20 mg/dL Normal 9-23 [facility] Comment on above: Performed By: #### L AB15 ####Metal Stud Framer: MAL ARVIZU ([id number])[facility])[address] [place] [address] Basic metabolic 1998 panelon 09-22-2024 Anion gap [Moles/Vol] 12 mmol/L 3 - 13 mmol/L [facility] Calcium [Mass/Vol] 9.2 mg/dL 8.8 - 10. 0 mg/dL [facility] Chloride [Moles/Vol] 99 mmol/L 98 - 10 7 mmol/L [facility] CO2 [Moles/Vol] 24 mmol/L 23 - 31 mmol/L [facility] Creatinine [Mass/Vol] 0.75 mg/dL 0.57 - 1.11 mg/dL [facility] GFR/1.73 sq M.predicted (S/P/Bld) [Vol rate/Area] - PINF [facility] Comment on above: Calculation based on the Chronic Kidney Disease Epidemiology Collaboration (CKD-EPI) equation refit without adjustment for race Glucose [Mass/Vol] 121 mg/dL High 82 - 115 mg/dL [facility] Interpretation and review of laboratory results Abnormal [facility] Potassium [Moles/Vol] 4.7 mmol/L 3.5 - 5.1 mmol/L [facility] Comment on above: Plasma potassium roxy ues may be up to 0.5 mmol/L lower than serum values. Sodium [Moles/Vol] 135 mmol/L Low 136 - 145 mmol/L [facility] Urea nitrogen [Mass/Vol] 20 mg/dL 9 - 23 mg/dL [facility] CBC (HEMOGRAM)on 09-22-2024 Erythrocyte distribution width (RBC) [Ratio] 13.4 % Normal 11.5-15.0 [facility] Comment on above: Performed By: #### L [id number] ####Metal Stud Framer: MAL ARVIZU ([id number])[facility])[address] [place] [address] Hematocrit (Bld) [Volume fraction] 42.8 % Normal 35.0-47.0 [facility] Comment on above: Performed By: #### L [id number] ####Metal Stud Framer: MAL ARVIZU ([id number])[facility])[address] [place] [address] Hemoglobin (Bld) [Mass/Vol] 13.4 g/dL Normal 11.7-16.0 [facility] Comment on above: Performed By: #### L [id number] ####Metal Stud Framer: MAL ARVIZU ([id number])[facility])[address] [place] [address] MCH (RBC) [Entitic mass] 29.1 pg Normal 26.0-34.0 [facility] Comment on above: Performed By: #### L [id number] ####Metal Stud Framer: MAL ARVIZU ([id number])[facility])[address] [place] [address] MCHC 31.3 % Normal 30.5-36.0 [facility] Comment on above: Performed By: #### L [id number] ####Metal Stud Framer: MAL ARVIZU ([id number])[facility])[address] [place] [address] MCV (RBC) [Entitic vol] 92.8 fL Normal 77.0-99.0 [facility] Comment on above: Performed By: #### L [id number] ####Metal Stud Framer: MAL ARVIZU ([id number])[facility])[address] [place] [address] Platelet mean volume (Bld) [Entitic vol] 10.7 fL Normal 9.0-12.7 [facility] Comment on above: Performed By: #### L [id number] ####Metal Stud Framer: MAL ARVIZU ([id number])[facility])[address] [place] [address] Platelets (Bld) [#/Vol] 304 10*3/uL Normal 140-440 [facility] Comment on above: Performed By: #### L [id number] ####Metal Stud Framer: MAL ARVIZU ([id number])[facility])[address] [place] [address] RBC (Bld) [#/Vol] 4.61 10*6/uL Normal 3.80-5.20 [facility] Comment on above: Performed By: #### L [id number] ####Metal Stud Framer: MAL ARVIZU ([id number])[facility])[address] [place] [address] WBC (Bld) [#/Vol] 15.4 10*3/uL High 3.6-10.7 [facility] Comment on above: Performed By: #### L [id number] ####Metal Stud Framer: MAL ARVIZU ([id number])[facility])[address] [place] [address] CBC panel Auto (Bld)Ordered By: Alberto Rosales on 09-22-2024 Erythrocyte distribution width (RBC) [Ratio] 13.4 % 11.5 - 15.0 % [facility] Hematocrit (Bld) [Volume fraction] 42.8 % 35.0 - 47.0 % [facility] Hemoglobin (Bld) [Mass/Vol] 13.4 g/dL 11.7 - 16.0 g/dL [facility] Interpretation and review of laboratory results Abnormal [facility] MCH (RBC) [Entitic mass] 29.1 pg 26.0 - 34.[address] [facility] MCHC (RBC) [Mass/Vol] 31.3 % 30.5 - 36.0 % [facility] MCV (RBC) [Entitic vol] 92.8 fL 77.0 - 99.0 fL [facility] Platelet mean volume (Bld) [Entitic vol] 10.7 fL 9.0 - 12.7 fL [facility] Platelets (Bld) [#/Vol] 304 10*3/uL 140 - 440 10*3/uL [facility] RBC (Bld) [#/Vol] 4.61 10*6/uL 3.80 - 5.2 0 10*6/uL [facility] WBC (Bld) [#/Vol] 15.4 10*3/uL High 3.6 - 10.7 10*3/uL [facility] Progress Noteon 09-22-2024 Progress Note PAGING: The Acute Pa in Service providers are available exclusively via [employer] SECURE CHAT. APS does not utilize pagers. 09/22/2024 Discharge Recommendations: [place] 1-2 tablets q8h prn for mod / severe pain Robaxin 750mg PO q8h prn for muscle spasms Stool softeners Pain Management Adjuvants: 0700 --> 0700 09/21/24 Scheduled APAP 650mg Gabapentin Lidocaine patches PRN Hydromorphone IV Methocarbamol Oxycodone [place] 8 tablets Assessment / Pain Management Plan: Recommendations made, will sign off at this time. Thank you for inviting us to participate in the care of this patient. Acute Postsurgical Chest pain Multimodal pain regimen: BLOCK: Serratus Anterior 09/20/24 Pt requested [place] post operatively 09/21/24 Does not want IV [...] at chest tube site is controlled with [place] per her request. Does not like IV [...] Lab Result (more content not included)... Normal [facility] Progress Note Nutrition rescreen completed. Chart reviewed. Patient to be monitored and followed by the diet indoor plant technician. Normal [facility] XR CHEST 1 VIEWon 09-22-2024 XR [...] IMPRESSION: No change Report Dictated on Workstation: [employer] Electronically Signed By: Jani Finnegan MD Electronically Signed Date/Time: 09/22/2024 5:44 AM EDT Normal [facility] XR Chest Single viewon 09-22 No change Report Dictated on Workstation: [employer] Electronically Signed By: Jani Finnegan MD Electronically Signed Date/Time: 09/22/2024 5:44 AM EDT [facility] Patient Name: FOZIA BREEN : 1960 [...] change. No pneumothorax. Costophrenic angles are sharp. [facility] Jani Finnegan MD - 09/22/2024 Patient Name: [...] Electronically Signed Date/Time: 09/22/2024 5:[address] [facility] Radiology Study observation (narrative) [facility] XR Chest Single viewOrdered By: Jani Finnegan on 09-22-2024 [facility] Work Phone: BASIC METABOLIC PANELon 09-06 Anion gap [Moles/Vol] 11 mmol/L Normal 3-13 [facility] Comment on above: Performed By: #### L AB15 ####Metal Stud Framer: MAL ARVIZU ([id number])[facility])[address] [place] [address] Calcium [Mass/Vol] 8.9 mg/dL Normal 8.8-10.0 [facility] Comment on above: Performed By: #### L AB15 ####Metal Stud Framer: MAL ARVIZU ([id number])[facility])[address] [place] [address] Chloride [Moles/Vol] 101 mmol/L Normal 98-107 [facility] Comment on above: Performed By: #### L AB15 ####Metal Stud Framer: MAL ARVIZU ([id number])[facility])[address] [place] [address] CO2 [Moles/Vol] 21 mmol/L Low 23-31 [facility] Comment on above: Performed By: #### L AB15 ####Metal Stud Framer: MAL ARVIZU ([id number])[facility])[address] [place] [address] Creatinine [Mass/Vol] 0.77 mg/dL Normal 0.57-1.11 [facility] Comment on above: Performed By: #### L AB15 ####Metal Stud Framer: MAL ARVIZU ([id number])[facility])[address] [place] [address] [place] GLOMERULAR FILTRATION RATE ML/MIN/1.73 SQ M.PREDICTED 87.9 mL/min/1.73m*2 Normal >60.0 [facility] Comment on above: Result Comment: Calc ulation based on the Chronic Kidney Disease Epidemiology Collaboration (CKD-EPI) equation refit without adjustment for race Performed By: #### L AB15 ####Metal Stud Framer: MAL [id number])[facility] [place] [address] [place] Glucose [Mass/Vol] 159 mg/dL High 82-115 [facility] Comment on above: Performed By: #### L AB15 ####Metal Stud Framer: MAL ARVIZU ([id number])[facility])[address] [place] [address] Potassium [Moles/Vol] 4.5 mmol/L Normal 3.5-5.1 [facility] Comment on above: Result Comment: [facility] potassium values may be up to 0.5 mmol/L lower than serum values. Performed By: #### L AB15 ####Metal Stud Framer: MAL ARVIZU ([id number])[facility])[address] [place] [address] Sodium [Moles/Vol] 133 mmol/L Low 136-145 [facility] Comment on above: Performed By: #### L AB15 ####Metal Stud Framer: MAL ARVIZU ([id number])[facility])[address] [place] [address] Urea nitrogen [Mass/Vol] 17 mg/dL Normal 9-23 [facility] Comment on above: Performed By: #### L AB15 ####Metal Stud Framer: MAL ARVIZU ([id number])[facility])[address] [place] [address] Basic metabolic 1998 panelon 09-21-2024 Anion gap [Moles/Vol] 11 mmol/L 3 - 13 mmol/L [facility] Calcium [Mass/Vol] 8.9 mg/dL 8.8 - 10. 0 mg/dL [facility] Chloride [Moles/Vol] 101 mmol/L 98 - 10 7 mmol/L [facility] CO2 [Moles/Vol] 21 mmol/L Low 23 - 31 mmol/L [facility] Creatinine [Mass/Vol] 0.77 mg/dL 0.57 - 1.11 mg/dL [facility] GFR/1.73 sq M.predicted (S/P/Bld) [Vol rate/Area] 87.9 mL/min - PINF [facility] Comment on above: Calculation based on the Chronic Kidney Disease Epidemiology Collaboration (CKD-EPI) equation refit without adjustment for race Glucose [Mass/Vol] 159 mg/dL High 82 - 115 mg/dL [facility] Interpretation and review of laboratory results Abnormal [facility] Potassium [Moles/Vol] 4.5 mmol/L 3.5 - 5.1 mmol/L [facility] Comment on above: Plasma potassium roxy ues may be up to 0.5 mmol/L lower than serum values. Sodium [Moles/Vol] 133 mmol/L Low 136 - 145 mmol/L [facility] Urea nitrogen [Mass/Vol] 17 mg/dL 9 - 23 mg/dL [facility] CBC (HEMOGRAM)on 09-21-2024 Erythrocyte distribution width (RBC) [Ratio] 13.3 % Normal 11.5-15.0 [facility] Comment on above: Performed By: #### L [id number] ####Metal Stud Framer: MAL ARVIZU ([id number])[address] Hematocrit (Bld) [Volume fraction] 38.9 % Normal 35.0-47.0 [facility] Comment on above: Performed By: #### L [id number] ####Metal Stud Framer: MAL ARVIZU ([id number])[address] Hemoglobin (Bld) [Mass/Vol] 12.8 g/dL Normal 11.7-16.0 [facility] Comment on above: Performed By: #### L [id number] ####Metal Stud Framer: MAL ARVIZU ([id number])[address] MCH (RBC) [Entitic mass] 30.1 pg Normal 26.0-34.0 [facility] Comment on above: Performed By: #### L [id number] ####Metal Stud Framer: MAL ARVIZU ([id number])[address] MCHC 32.9 % Normal 30.5-36.0 [facility] Comment on above: Performed By: #### L [id number] ####Metal Stud Framer: MAL ARVIZU ([id number])[facility])[address] [place] [address] MCV (RBC) [Entitic vol] 91.5 fL Normal 77.0-99.0 [facility] Comment on above: Performed By: #### L [id number] ####Metal Stud Framer: MAL ARVIZU ([id number])[facility])[address] [place] [address] Platelet mean volume (Bld) [Entitic vol] 10.8 fL Normal 9.0-12.7 [facility] Comment on above: Performed By: #### L [id number] ####Metal Stud Framer: MAL ARVIZU ([id number])[facility])[address] [place] [address] Platelets (Bld) [#/Vol] 284 10*3/uL Normal 140-440 [facility] Comment on above: Performed By: #### L [id number] ####Metal Stud Framer: MAL ARVIZU ([id number])[facility])[address] [place] [address] RBC (Bld) [#/Vol] 4.25 10*6/uL Normal 3.80-5.20 [facility] Comment on above: Performed By: #### L [id number] ####Metal Stud Framer: MAL ARVIZU ([id number])[facility])[address] [place] [address] WBC (Bld) [#/Vol] 18.6 10*3/uL High 3.6-10.7 [facility] Comment on above: Performed By: #### L [id number] ####Metal Stud Framer: MAL ARVIZU ([id number])[facility])[address] [place] [address] CBC panel Auto (Bld)on 09-21 Erythrocyte distribution width (RBC) [Ratio] 13.3 % 11.5 - 15.0 % [facility] Hematocrit (Bld) [Volume fraction] 38.9 % 35.0 - 47.0 % [facility] Hemoglobin (Bld) [Mass/Vol] 12.8 g/dL 11.7 - 16.0 g/dL [facility] Interpretation and review of laboratory results Abnormal [facility] MCH (RBC) [Entitic mass] 30.1 pg 26.0 - 34.[address] [facility] MCHC (RBC) [Mass/Vol] 32.9 % 30.5 - 36.0 % [facility] MCV (RBC) [Entitic vol] 91.5 fL 77.0 - 99.[address] [facility] Platelet mean volume (Bld) [Entitic vol] 10.8 fL 9.0 - 12.[address] [facility] Platelets (Bld) [#/Vol] 284 10*3/uL 140 - 440 10*3/uL [facility] RBC (Bld) [#/Vol] 4.25 10*6/uL 3.80 - 5.2 0 10*6/uL [facility] WBC (Bld) [#/Vol] 18.6 10*3/uL High 3.6 - 10.7 10*3/uL [facility] Consulton 09-21-2024 Consult PAGING: The Acute Pa in Service providers are available exclusively via [employer]. APS does not utilize pagers. 09/21/2024 Lab Results Component Value Date CREATININE 0.77 09/21/2024 Discharge Recommendations: Pending Pain Management Adjuvants: 0700 --> 0700 09/20/2024 Scheduled APAP 2,950 mg PRN Hydromorphone IV 1.8 mg Assessment / Pain Management Plan: Will follow. Acute Postsurgical Chest pain Multimodal pain regimen: BLOCK: : Serratus Anterior Discontinue WASHER REPAIRMAN Order PO [place] 1-2 tabs Q 4 hours PRN for [...] like to take narcotics if possible, requesting WASHER REPAIRMAN be discontinued Ordered PO [place] per patient request States she ambulated in the thakkar this AM without difficulty, eager to be discharged home Tolerating diet, denies n/v. Patient educated on pain regimen, aware that PO [place] and IV hydromorphone are PRN and patient [...] rate. Pulmonary: (more content not included)... Normal [facility] XR CHEST 1 VIEWon 09-21-2024 XR CHEST 1 VIEW [facility] Name[facility]ZIA BREEN : 1960 [id number] Exam Date/Time: 09/21/2024 08:40 Procedure: XR CHEST [...] Electronically Signed Date/Time: 09/21/2024 8:54 AM EDT [facility] XR Chest Single viewon 09-21 No significant change when compared with the previous study. Report Dictated on Electronically Signed By: Yousuf Carrasquillo MD Electronically Signed Date/Time: 09/21/2024 8:54 AM EDT [facility] Patient Name: FOZIA BREEN : 1960 Exam [...] evidence of pneumothorax. Bony structures are unremarkable. [facility] Yousuf Carrasquillo MD - 09/21/2024 Patient Name: [...] Electronically Signed Date/Time: 09/21/2024 8:[address] [facility] Radiology Study observation (narrative) [facility] XR Chest Single viewOrdered By: Yousuf Carrasquillo on 09-21-2024 [facility] ABO and Rh group Confirm Nom (Bld)on 09-20-2024 ABO group Nom (Bld) O [facility] D Ag Ql (RBC) Positive [facility] Airwayon 09-20-2024 Mariia Talavera APR N - MECHANICAL DESIGN DRAFTER 09/20/2024 2:25 PM Airway Date/Time: 09/20/2024 1:40 PM Reason: scheduled Airway not difficult General Information and Staff Patient location during procedure: Procedural Anesthesiologist: Jorge Ortiz DO Resident/MECHANICAL DESIGN DRAFTER: Mariia Talavera APRN - MECHANICAL DESIGN DRAFTER Performed: MECHANICAL DESIGN DRAFTER Patient Condition Indications for airway management: anesthesia [...] Placement verified by bronch with Dr. Ortiz [facility] Arterial Lineon 09-20-2024 DARRYL Hopper RN - MECHANICAL DESIGN DRAFTER 09/20/2024 1:54 PM Arterial Line: Date/Time: 09/20/2024 [...] procedure well with no complications. Staffing Performed: MECHANICAL DESIGN DRAFTER Anesthesiologist: Jorge Ortiz DO Resident/MECHANICAL DESIGN DRAFTER: Jani Mendoza APRN - ABEL [facility] BASIC METABOLIC PANELon 05- Anion gap [Moles/Vol] 13 mmol/L Normal 3-13 [facility] Comment on above: Performed By: #### L AB15 ####Metal Stud Framer: MAL ARVIZU ([id number])[facility] ([facility])[address] [place] [address] Calcium [Mass/Vol] 9.1 mg/dL Normal 8.8-10.0 [facility] Comment on above: Performed By: #### L AB15 ####Metal Stud Framer: MAL ARVIZU ([id number])[facility] ([facility])[address] [place] [address] Chloride [Moles/Vol] 103 mmol/L Normal 98-107 [facility] Comment on above: Performed By: #### L AB15 ####Metal Stud Framer: MAL ARVIZU ([id number])[facility] ([facility])[address] [place] [address] CO2 [Moles/Vol] 21 mmol/L Low 23-31 [facility] Comment on above: Performed By: #### L AB15 ####Metal Stud Framer: MAL ARVIZU ([id number])[facility])[address] [place] [address] Creatinine [Mass/Vol] 0.89 mg/dL Normal 0.57-1.11 [facility] Comment on above: Performed By: #### L AB15 ####Metal Stud Framer: MAL ARVIZU ([id number])[facility])[address] [place] [address] GLOMERULAR FILTRATION RATE ML/MIN/1.73 SQ M.PREDICTED 73.9 mL/min/1.73m*2 Normal >60.0 [facility] Comment on above: Result Comment: Calc ulation based on the Chronic Kidney Disease Epidemiology Collaboration (CKD-EPI) equation refit without adjustment for race Performed By: #### L AB15 ####Metal Stud Framer: MAL ARVIZU ([id number])[facility] ([facility])[address] [place] [address] Glucose [Mass/Vol] 189 mg/dL High 82-115 [facility] Comment on above: Performed By: #### L AB15 ####Metal Stud Framer: MAL ARVIZU ([id number])[facility])[address] [place] [address] Potassium [Moles/Vol] 3.9 mmol/L Normal 3.5-5.1 [facility] Comment on above: Result Comment: [facility] potassium values may be up to 0.5 mmol/L lower than serum values. Performed By: #### L AB15 ####Metal Stud Framer: MAL ARVIZU ([id number])[facility] ([facility])[address] [place] [address] Sodium [Moles/Vol] 137 mmol/L Normal 136-145 [facility] Comment on above: Performed By: #### L AB15 ####Metal Stud Framer: MAL ARVIZU ([id number])[facility])[address] [place] [address] Urea nitrogen [Mass/Vol] 14 mg/dL Normal 9-23 [facility] Comment on above: Performed By: #### L AB15 ####Metal Stud Framer: MAL ARVIZU ([id number])[facility])[address] [place] [address] BLOOD TYPE AND SCREEN GELon 09-20-2024 ABO GROUPING O Normal [facility] Comment on above: Performed By: #### L AB276 ####Metal Stud Framer: MAL ARVIZU ([id number])[facility] ([facility])[address] [place] [address] RH TYPE IN BLOOD Positive Normal [facility] Comment on above: Performed By: #### L AB276 ####Metal Stud Framer: MAL [id number])[facility] ([facility])[address] [place] [address] Basic metabolic 1998 panelon 09-20-2024 Anion gap [Moles/Vol] 13 mmol/L 3 - 13 mmol/L [facility] Calcium [Mass/Vol] 9.1 mg/dL 8.8 - 10. 0 mg/dL [facility] Chloride [Moles/Vol] 103 mmol/L 98 - 10 7 mmol/L [facility] CO2 [Moles/Vol] 21 mmol/L Low 23 - 31 mmol/L [facility] Creatinine [Mass/Vol] 0.89 mg/dL 0.57 - 1.11 mg/dL [facility] GFR/1.73 sq M.predicted (S/P/Bld) [Vol rate/Area] 73.9 mL/min - PINF [facility] Comment on above: Calculation based on the Chronic Kidney Disease Epidemiology Collaboration (CKD-EPI) equation refit without adjustment for race Glucose [Mass/Vol] 189 mg/dL High 82 - 115 mg/dL [facility] Interpretation and review of laboratory results Abnormal [facility] Potassium [Moles/Vol] 3.9 mmol/L 3.5 - 5.1 mmol/L [facility] Comment on above: Plasma potassium roxy ues may be up to 0.5 mmol/L lower than serum values. Sodium [Moles/Vol] 137 mmol/L 136 - 145 mmol/L [facility] Urea nitrogen [Mass/Vol] 14 mg/dL 9 - 23 mg/dL [facility] Blood type and Crossmatch pa tessy (Bld)on 09-20-2024 ABO group Nom (Bld) O [facility] Blood group antibody screen GEL Ql Negative [facility] D Ag Ql (RBC) Positive [facility] CBC (HEMOGRAM)on 09-20-2024 Erythrocyte distribution width (RBC) [Ratio] 13.3 % Normal 11.5-15.0 [facility] Comment on above: Performed By: #### L AB294 ####Metal Stud Framer: MAL ARVIZU ([id number])[facility] ([facility])[address] [place] [address] Hematocrit (Bld) [Volume fraction] 43.4 % Normal 35.0-47.0 [facility] Comment on above: Performed By: #### L AB294 ####Metal Stud Framer: MAL ARVIZU ([id number])[facility] ([facility])[address] [place] [address] Hemoglobin (Bld) [Mass/Vol] 13.7 g/dL Normal 11.7-16.0 [facility] Comment on above: Performed By: #### L AB294 ####Metal Stud Framer: MAL ARVIZU ([id number])[facility] ([facility])[address] [place] [address] MCH (RBC) [Entitic mass] 29.2 pg Normal 26.0-34.0 [facility] Comment on above: Performed By: #### L AB294 ####Metal Stud Framer: MAL ARVIZU ([id number])[facility])[address] [place] [address] MCHC 31.6 % Normal 30.5-36.0 [facility] Comment on above: Performed By: #### L AB294 ####Metal Stud Framer: MAL ARVIZU ([id number])[facility] ([facility])[address] [place] [address] MCV (RBC) [Entitic vol] 92.5 fL Normal 77.0-99.0 [facility] Comment on above: Performed By: #### L AB294 ####Metal Stud Framer: MAL ARVIZU ([id number])[facility])[address] [place] [address] Platelet mean volume (Bld) [Entitic vol] 10.5 fL Normal 9.0-12.7 [facility] Comment on above: Performed By: #### L AB294 ####Metal Stud Framer: MAL ARVIZU ([id number])[facility])[address] [place] [address] Platelets (Bld) [#/Vol] 309 10*3/uL Normal 140-440 [facility] Comment on above: Performed By: #### L AB294 ####Metal Stud Framer: MAL ARVIZU ([id number])[facility])[address] [place] [address] RBC (Bld) [#/Vol] 4.69 10*6/uL Normal 3.80-5.20 [facility] Comment on above: Performed By: #### L AB294 ####Metal Stud Framer: MAL ARVIZU ([id number])[facility])[address] [place] [address] WBC (Bld) [#/Vol] 17.3 10*3/uL High 3.6-10.7 [facility] Comment on above: Performed By: #### L AB294 ####Metal Stud Framer: MAL ARVIZU ([id number])[facility])[address] [place] [address] CBC panel Auto (Bld)Ordered By: Susie Jones on 09-20-2024 Erythrocyte distribution width (RBC) [Ratio] 13.3 % 11.5 - 15.0 % [facility] Hematocrit (Bld) [Volume fraction] 43.4 % 35.0 - 47.0 % [facility] Hemoglobin (Bld) [Mass/Vol] 13.7 g/dL 11.7 - 16.0 g/dL [facility] Interpretation and review of laboratory results Abnormal [facility] MCH (RBC) [Entitic mass] 29.2 pg 26.0 - 34.[address] [facility] MCHC (RBC) [Mass/Vol] 31.6 % 30.5 - 36.0 % [facility] MCV (RBC) [Entitic vol] 92.5 fL 77.0 - 99.[address] [facility] Platelet mean volume (Bld) [Entitic vol] 10.5 fL 9.0 - 12.[address] [facility] Platelets (Bld) [#/Vol] 309 10*3/uL 140 - 440 10*3/uL [facility] RBC (Bld) [#/Vol] 4.69 10*6/uL 3.80 - 5.2 0 10*6/uL [facility] WBC (Bld) [#/Vol] 17.3 10*3/uL High 3.6 - 10.7 10*3/uL [facility] ECG 12-LEADon 09-20-2024 ECG 12-LEAD IMPRESSION: Sinus rhythm Electronically Signed On 09-20-2024 10:45:51 EDT by Abdi Parisi Normal [facility] HEMOGLOBIN AND HEMATOCRIT, B LOODon 09-20-2024 Hematocrit (Bld) [Volume fraction] 43.7 % Normal 35.0-47.0 [facility] Comment on above: Performed By: #### L AB753 ####Metal Stud Framer: MLA ARVIZU ([id number])[facility] ([facility])[address] [place] [address] Hemoglobin (Bld) [Mass/Vol] 14.2 g/dL Normal 11.7-16.0 [facility] Comment on above: Performed By: #### L AB753 ####Metal Stud Framer: MAL ARVIZU ([id number])[facility] ([facility])[address] [place] [address] Hemoglobin (Bld) [Mass/Vol]o n 09-20-2024 Hematocrit (Bld) [Volume fraction] 43.7 % 35.0 - 47.0 % [facility] OLSET Interpretation and review of laboratory results Normal [facility] - Hematology and Cell countson 09-20-2024 Hemoglobin (Bld) [Mass/Vol] 14.2 g/dL 11.7 - 16.0 g/dL [facility] No Panel InformationOrdered By: Abdi Parisi on 09-20-2024 P [place] 40 degrees [facility] Work Phone: CT Interval 142 ms [facility] Work Phone: QRS [place] 51 degrees [facility] Work Phone: QRSD Interval 86 ms [facility] Work Phone: QT Interval 350 ms [facility] Work Phone: QTC Interval 417 ms [facility] Work Phone: T Wave [place] 43 degrees [facility] Work Phone: [facility] Work Phone: No Panel Informationon 09-20 Sinus rhythm Electronically Signed On 09-20-2024 10:45:51 EDT by Abdi Parisi [facility]LL[facility] Parisi, Abdi Winter MD - 09/20/2024 IMPRESSION: Sinus rhythm Electronically Signed On 09-20-2024 10:45:51 EDT by Abdi Parisi [facility] Nursing Noteon 09-20-2024 Nursing Note Patient family/visit or updated by RN at this time. Normal [facility] Nursing Note Pt declined Xanax at this time. Normal [facility] Op Noteon 09-20-2024 Op Note [facility] Cardiothoracic Surgery Operative [...] 12, 5) Surgeon: Lee Ann Perez MD Recenterer(s): NO Pacheco MD Anesthesia: General Estimated blood [...] the o (more content not included)... Normal [facility] Op Note Date: 09/20/2024 Loca tion: [facility] OR Name: Fozia Breen, : 1960, Diagnosis Pre-op Diagnosis * Solitary pulmonary nodule [R91.1] Post-op Diagnosis * Solitary pulmonary nodule [R91.1] Procedures THORACOSCOPY WITH WEDGE RESECTION LEFT LOWER LOBE 49[address] - CT THORACOSCOPY W/DX WEDGE RESEXN ANATO LUNG RESEXN LOBECTOMY, LUNG, OPEN 28678 - CT RMVL LUNG OTHER THAN PNEUMONECTOMY 1 LOBE [...] MD 09/20/24 1527 Description: level 10 Staff: Bicycle I Assembler: Nina Arredondo RN; Jolly Arteaga RN Relief Bicycle I Assembler: Pepe Cruz RN Scrub Person: Yamile Medina [...] Moises Pacheco MD PGY5, General Surgery Pager #[phone] [facility] Peripheral Blockon DARRYL Hopper RN - MECHANICAL DESIGN DRAFTER 09/20/2024 2:00 PM Peripheral Block Time Out: 09/20/2024 1:45 PM Patient location during procedure: Procedural Start time: 09/20/2024 1:45 PM End time: 09/20/2024 1:47 PM Reason for block: at surgeon's request and post-op pain management Staffing Performed: MECHANICAL DESIGN DRAFTER Anesthesiologist: Jorge Oritz DO Resident/MECHANICAL DESIGN DRAFTER: Jani Mendoza APRN - ABEL Preanesthetic Checklist Completed: patient identified, IV checked, site marked, risks and benefits discussed, surgical consent, monitors and equipment checked, pre-op evaluation and timeout performed Region: [place]un[place] Primary: Serratus Anterior Peripheral Block Patient position: supine Prep: ChloraPrep Patient monitoring: heart rate, alarm security or surveillance monitor, continuous pulse ox and continuous capnometry O2: [...] Injection 10 mL - 09/20/2024 1:45:00 PM [facility] DARRYL Hopper RN - MECHANICAL DESIGN DRAFTER 09/20/2024 2:00 PM Peripheral Block Time Out: 09/20/2024 12:55 PM Patient location during procedure: pre-op Start time: 09/20/2024 12:55 PM End time: 09/20/2024 1:00 PM Reason for block: at surgeon's request and post-op pain management Staffing Performed: MECHANICAL DESIGN DRAFTER Anesthesiologist: Jorge Ortiz DO Resident/MECHANICAL DESIGN DRAFTER: Jani Mendoza APRN - ABEL Preanesthetic Checklist Completed: patient identified, IV checked, site marked, risks and benefits discussed, surgical consent, monitors and equipment checked, pre-op evaluation and timeout performed Region: [place] Primary: Erector Spinae Peripheral Block Patient position: sitting Prep: ChloraPrep Patient monitoring: heart rate, alarm security or surveillance monitor and continuous pulse ox O2: Room air [...] Injection 10 mL - 09/20/2024 12:55:00 PM [facility] Peripheral Nafisa 09-20-2024 BRAYAN Love - MECHANICAL DESIGN DRAFTER 09/20/2024 2:23 PM Peripheral IV Date/Time: 09/20/2024 1:50 PM Inserted by: Mariia Talavera APRN - MECHANICAL DESIGN DRAFTER Placement Needle size: 18 G Laterality: right Location: hand Local anesthetic: none Site prep: chlorhexidine Technique: anatomical landmarks Attempts: 1 [facility] Progress Noteon 09-20-2024 Progress Note Patient stable at th is time. Patient denies ringing in ears, numbness or tingling. Family at bedside. Normal [facility] Vital signsOrdered By: Bert coates [facility] on 09-20-2024 Heart rate 85 /min bpm [facility] Work Phone: XR CHEST 1 VIEWon 09-20-2024 [...] Electronically Signed Date/Time: 09/20/2024 5:23 PM EDT [facility] XR Chest Single viewon 09-20 1. Left thoracostomy tubes x2. 2. Findings which may represent bibasilar atelectasis, mild infiltrate(s) or postinflammatory change of uncertain etiology or chronicity. Report Dictated on Electronically Signed By: Jamal Dumont MD Electronically Signed Date/Time: 09/20/2024 5:23 PM EDT [facility] Patient Name: FOZIA BREEN : 1960 [...] pneumothorax. Degenerative change in the thoracic spine. [facility] Jamal Dumont MD - 09/20/2024 Patient [...] Electronically Signed Date/Time: 09/20/2024 5:23 PM EDT [facility] Rad[facility] Study observation (narrative) [facility] XR Chest Single viewOrdered By: Jamal Dumont on 09-20-2024 [facility] Work Phone: [phone] 09-13-2024 [id number] Medication List Accurate as of September 13, [...] hours prior to surgery. Please bring your [facility] Surgical folder with you day of surgery. [...] time and date. You may use the [employer] parking located at the main entrance on [address] [facility] and take the H elevator to the first floor for same day surgery. Take a left after exiting the elevator and check in at the desk. Or- You may use the parking in the Main deck. Take the level one bridge to the H building and follow the signs for same day surgery. Check in at the desk. Normal [facility] 36on 09-02-2024 36 Surg proc orders stacia avril. Benjamin Moffett, BAKER HEAD - FEEDER OPERATOR AUTOMATIC 09/02/24 Normal [facility] 6 Minute Walk Teston 08-31-2 025 6 Minute Walk Test [facility] Pulmonary Services/Neurology [address] [place] [address] MR#: [id number] Acct: [id number] Name: FOZIA BREEN Rep #: [id number] : 1960 63 From: Shivam Pryor DO Referring Dr: Angeline Lew PLUMBER MAINTENANCE PLUMBER MAINTENANCE-C Status: REG CLI Location: PSN Date: Sex: F C PSN 6 Minute Walk Test 6 Minute Walk Test 6 Minute Walk Test: 6 Minute Walk Test PSN:6-Minute Walk Test Start: 08/30/24 11:32 Freq: Status: Active Protocol: RESP.6MINW Document 08/30/24 11:32 YASSINE (Rec: 08/30/24 11:34 [place] [id number]) 6 Minute Walk Test Date Performed 08/30/24 [...] Date Dictated: 08/31/24 1220 Date Transcribed: 08/31/241219 Ingot Passer: Dr. Shivam Pryor DO Signed Normal [facility] Office [place] 08-28-2024 Follow-up visit [id number] Suzette Breeni 1960 F Date Provider Department Center 08/28/2024 [id number], LEE ANN Fernandez [facility] None Family History Problem Relation Age of Onset Hypertension Mother Diabetes Mother Asthma Mother Ulcerative colitis Mother Arthritis Mother Coronary artery disease Father Heart attack Father Hypertension Father Heart disease Father Coronary artery disease Brother Heart disease Brother Hypertension Brother Heart attack Brother Family Status - Relation Status Age at Mother Father Brother Level of Service:55258 CT OFFICE/OUTPATIENT NEW HIGH MDM 60 MINUTES Reason for Visit and Comments: New Patient [542] Normal [facility] Progress Noteon 08-28-2024 Progress Note [facility] CARDIOVASCULAR & THORACIC SURGERY [address] [facility] [address] Dept: [phone] Dept Loc: [phone] Visit type: New Reason for Visit: PET [...] a 63 y.o. female referred by LIZANDRO Ocsaio for enlarging, PET positive left lower lobe [...] BMI 33 (more content not included)... Normal [facility] Pulmonary Visit Reporton Pulmonary Visit Report [facility] Pulmonary Medicine of [address] [place] [address] OFFICE VISIT Date of Service: 08/17/24 MR#: [id number] Acct: [id number] Name: FOZIA BREEN Rep #: [id number] : 1960 Provider: LIZANDRO Lew Age/Sex: 63/F Location: [facility].PMW Status: Signed Assessment and Plan Assessment and [...] 0RF Plan Details Follow Up: 6 Months ([facility]) HPI 2 wk fu Chief Complaint: Test [...] air Intake Visit Reasons: 2 wk fu Superintendent Circus Required: No Accompanied by: Self Allergies Penicillins [...] disease Hy (more content not included)... Normal [facility] Positron emission tomography scan reportOrdered By: Ady Servin on 08-09-2024 PT Unspecified body region [facility] Imaging Services [address] [place] [address] PET/CT Tumor Base -Thigh Init MR#: [id number] Acct: [id number] Name: FOZIA BREEN Rep #: [id number] : 1960 F 63 From: Pet er Peer DO PCP: Dr. Emilie Wheatley MD Status: REG CLI Study:PET/CT Tumor Base -Thigh Init Date of E xam: 08/07/24 Exam# [id number] Ordering Dr: Mary Lew NP PLUMBER MAINTENANCE-C EXAM: PET-CT skull base to mid thigh. [...] lower lobe peripherally. Reading Location: RAD-PEER-NL CC: PLUMBER MAINTENANCE-C Angeline Lew; Dr. Emilie Wheatley MD ~ Ingot Passer: Signed [facility] PET/CT Tumor Base -Thigh Ini edgar 08-07-2024 PET/CT Tumor Base -Thigh Init [facility] Imaging Services [address] [place] [address] PET/CT Tumor Base -Thigh Init MR#: [id number] Acct: [id number] Name: FOZIA BREEN Rep #: [id number] : 1960 F 63 From: Ady Servin DO PCP: Dr. Emilie Wheatley MD Status: REG CLI Study: PET/CT Tumor Base -Thigh Init Date of Exam: Exam# [id number] Ordering Dr: Angeline Lwe NP PLUMBER MAINTENANCE-C EXAM: PET-CT skull base to mid thigh. [...] the left lower lobe peripherally. Reading Location: VEE-Impinj-EFRAIN CC: LIZANDRO Lew; Dr. Emilie Wheatley MD Ingot Passer: Signed Normal [facility] Pulmonary Visit Reporton Pulmonary Visit Report [facility] Pulmonary Medicine of [place] [address] [place] [address] OFFICE VISIT Date of Service: 07/30/24 MR#: [id number] Acct: [id number] Name: FOZIA BREEN Rep #: [id number] : 1960 Provider: LIZANDRO Lew Age/Sex: 63/F Location: [facility].PMW Status: Signed Assessment and Plan Assessment and [...] Additional Comments: This note was generated with Bambisa dictation software. It may contain incorrect words, spelling, and punctuation that were not noted in checking the note before signing. Thank you for the referral and the opportunity to participate in this patient's care. Follow Up: 2 Weeks (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 Normal [facility] Breast imaging reportOrdered By: Cookie Vallejo on 07-25-2024 Study report [facility] Imaging Services [address] [place] [address] DIAG MAMM W/CAD, UNILAT MR#: [id number] Acct: [id number] Name: FOZIA BREEN Rep #: [id number] : 1960 F 63 From: Kera Vallejo MD PCP: Dr. Emilie Wheatley MD Status: REG CLI Study:DIAG MAMM W/CAD, UNILAT Date of Exam: 07/25/24 Exam# [id number] Ordering Dr: Viktoria Rubi sa DO PROCEDURE: [...] central innerleft breast is marked with a [place] skin marker and this area is consistent [...] of the results by letter. Reading Location: [facility] CC: Dr. Emilie Wheatley MD; Dr. Chasity Rubi DO ~ Ingot Passer: Signed [facility] DIAG MAMM W/CAD, UNILATon DIAG MAMM W/CAD, UNILAT [facility] Imaging Services [address] [place] [address] DIAG MAMM W/CAD, UNILAT MR#: [id number] Acct: [id number] Name: FOZIA BREEN Rep #: [id number] : 1960 F 63 From: Cookie Vallejo MD PCP: Dr. Emilie Wheatley MD Status: REG CLI Study: DIAG MAMM W/CAD, UNILAT Date of Exam: 07/25/24 Exam# [id number] Ordering Dr: Chasity Rubi DO PROCEDURE: DIAG [...] inner left breast is marked with a noatak skin marker and this area is consistent [...] of the results by letter. Reading Location: [facility] CC: Dr. Emilie Wheatley MD; Dr. Chasity Rubi DO Ingot Passer: Signed Normal [facility] Breast imaging reportOrdered By: Cookie Vallejo on 07-18-2024 Study report [facility] Imaging Services [address] [place], [place] [address] SCRN MAMM (CAD)W/ROSA ELENA BILAT MR#: [id number] Acct: [id number] Name: FOZIA BREEN Rep #: [id number] : 1960 F 63 From: Kera Vallejo MD PCP: Dr. Emilie Wheatley MD Status: REG CLI Study:SCRN MAMM (CAD)W/ROSA ELENA BILAT Date of Exa m: 07/18/24 Exam# [id number] Ordering Dr: Viktoria Rubi sa, DO PROCEDURE: [...] of the results by letter. Reading Location: [id number] CC: Dr. Emilie Wheatley MD; Dr. Chasity Rubi DO ~ Ingot Passer: Signed [facility] Low Dose CT Lung Screeningon 07-18-[address] Lung Screening [facility] Imaging Services [address] [place] [address] Lung Screening MR#: [id number] Acct: [id number] Name: FOZIA BREEN Rep #: [id number] : 1960 F 63 From: Jesu almonte MD PCP: Dr. Emilie Wheatley MD Status: REG CLI Study: Low Dose CT Lung Screening Date of Exam: 07/18 Exam# [id number] Ordering Dr: Chasity Rubi DO PROCEDURE: LOW [...] cancer) Electronical (more content not included)... Normal [facility] SCRN MAMM (CAD)W/ROSA ELENA BILATo n 07-18-2024 SCRN MAMM (CAD)W/ROSA ELENA BILAT [facility] Imaging Services [address] [place] [address] SCRN MAMM (CAD)W/ROSA ELENA BILAT MR#: [id number] Acct: [id number] Name: JAMSHIDFOZIA Rebecca Rep #: [id number] : 1960 F 63 From: Cookie Vallejo MD PCP: Dr. Emilie Wheatley MD Status: REG CLI Study: SCRN MAMM (CAD)W/ROSA ELENA BILAT Date of Exam: 07/07 07/03 Exam# [id number] Ordering Dr: Chasity Rubi DO PROCEDURE: SCRN [...] of the results by letter. Reading Location: [facility] CC: Dr. Emilie Wheatley MD; Dr. Chasity Rubi DO Ingot Passer: Signed Normal [facility] Quantiferon TB-Gold+on 06-09 QFT MITOGEN ROXY > 10.00 Normal . [facility] Comment on above: Performed By: #### L 100.0100, L500.4050, L3400.8000 #### [facility] Laboratory [address] [place], [address] QFT NIL VALUE 0.04 IU/mL Normal . [facility] Comment on above: Performed By: #### L 100.0100, L500.4050, L3400.8000 #### [facility] [address] [place], [address] QFT TB GOLD+ Comment Normal . [facility] Comment on above: Result Comment: [...] By: #### L 100.0100, L500.4050, L3400.8000 #### [facility] [address] [place], [address] QFT TB POS CRIT Negative Normal Negative [facility] Comment on above: Result Comment: [...] interferon gamma. Chemiluminescence immunoassay methodology Performed at: [facility] [employer] [id number] Voltage Inspector: Haris Sheridan PhD, Phone: [phone] Performed By: #### L 100.0100, L500.4050, L3400.8000 #### [facility] [address] [place], [address] QFT TB1+ AG ROXY 0.05 IU/mL Normal . [facility] Comment on above: Performed By: #### L 100.0100, L500.4050, L3400.8000 #### [facility] [address] [place], [address] QFT TB2+ AG ROXY 0.05 IU/mL Normal . [facility] Comment on above: Performed By: #### L 100.0100, L500.4050, L3400.8000 #### [facility] [address] [place], [address] Absolute neutrophil countOrd ered By: [facility] Tere on 06-06-2024 Neutrophils (Bld) [#/Vol] 3.9 10*3/uL 2.0-7.7 [facility] Albumin to globulin ratioOrd ered By: [facility] on 06-06-2024 Albumin/Globulin [Mass ratio] 1.1 {ratio} 0.9-2.4 [facility] Basophil percentageOrdered B y: Maria A Carranza on 06-06-2024 Basophils/100 WBC (Bld) 0.7 % 0-1 [facility] Bilirubin, totalOrdered By: Maria Atammie Carranza on 06-06-2024 Bilirubin [Mass/Vol] 0.40 mg/dL 0.20-1.00 [facility] Comment on above: For patients on eltr ombopag therapy, use of Dimension [place] TBIL is not recommended. Blood urea nitrogen (BUN)/cr eatinine ratioOrdered By: Maria A Carranza on 06-06-2024 Urea nitrogen/Creatinine [Mass ratio] 20.4 mg/mg High 10- [facility] CBC W/Diff, Automatedon 05-10 Absolute Lymph 1.90 X10 3/uL Normal 0.83-4.51 [facility] Comment on above: Performed By: #### L 100.0100, L500.4050, L3400.8000 #### [facility] [address] [place], [address] Absolute Neut 3.9 X10 3/uL Normal 2.0-7.7 [facility] Comment on above: Performed By: #### L 100.0100, L500.4050, L3400.8000 #### [facility] [address] [place], [address] Basophils/100 WBC (Bld) 0.7 % Normal 0-1 [facility] Comment on above: Performed By: #### L 100.0100, L500.4050, L3400.8000 #### [facility] [address] [place], [address] Eosinophils/100 WBC (Bld) 2.8 % Normal 0-5 [facility] Comment on above: Performed By: #### L 100.0100, L500.4050, L3400.8000 #### [facility] [address] [place], [address] Erythrocyte distribution width (RBC) [Ratio] 13.8 % Normal 11.6-14.6 [facility] Comment on above: Performed By: #### L 100.0100, L500.4050, L3400.8000 #### [facility] [address] [place], [address] Hematocrit (Bld) [Volume fraction] 44.2 % Normal 37-47 [facility] Comment on above: Performed By: #### L 100.0100, L500.4050, L3400.8000 #### [facility] [address] [place], [address] Hemoglobin (Bld) [Mass/Vol] 14.3 g/dL Normal 12.0-15.0 [facility] Comment on above: Performed By: #### L 100.0100, L500.4050, L3400.8000 #### [facility] [address] [place], [address] IG% 0.300 Normal 0.0-0.9 [facility] Comment on above: Result Comment: IG% - Immature Granulocytes (promyelocytes, myelocytes and metamyelocytes) > 1% indicates that a LEFT SHIFT is Present. Performed By: #### L 100.0100, L500.4050, L3400.8000 #### [facility] [address] [place], [address] Lymphocytes/100 WBC (Bld) 28.4 % Normal 19-41 [facility] Comment on above: Performed By: #### L 100.0100, L500.4050, L3400.8000 #### [facility] [address] [place], [address] MCH (RBC) [Entitic mass] 29.9 pg Normal 27.0-32.0 [facility] Comment on above: Performed By: #### L 100.0100, L500.4050, L3400.8000 #### [facility] [address] [place], [address] MCHC (RBC) [Mass/Vol] 32.4 g/dL Normal 32-36 [facility] Comment on above: Performed By: #### L 100.0100, L500.4050, L3400.8000 #### [facility] [address] [place], [address] MCV (RBC) [Entitic vol] 92.3 fL Normal 81-99 [facility] Comment on above: Performed By: #### L 100.0100, L500.4050, L3400.8000 #### [facility] [address] [place], [address] Monocytes/100 WBC (Bld) 8.8 % Normal 0-10 [facility] Comment on above: Performed By: #### L 100.0100, L500.4050, L3400.8000 #### [facility] [address] [place], [address] Neutrophils/100 WBC (Bld) 59.0 % Normal 47-70 [facility] Comment on above: Performed By: #### L 100.0100, L500.4050, L3400.8000 #### [facility] [address] [place], [address] Nucleated RBC (Bld) [#/Vol] 0 10*3/uL Normal 0-5 [facility] Comment on above: Performed By: #### L 100.0100, L500.4050, L3400.8000 #### [facility] [address] [place], [address] Platelet mean volume (Bld) [Entitic vol] 11.1 fL Normal 6.2-12.0 [facility] Comment on above: Performed By: #### L 100.0100, L500.4050, L3400.8000 #### [facility] [address] [place], [address] Platelets (Bld) [#/Vol] 365 10*3/uL Normal 150-450 [facility] Comment on above: Performed By: #### L 100.0100, L500.4050, L3400.8000 #### [facility] [address] [place], [address] RBC (Bld) [#/Vol] 4.79 10*6/uL Normal 4.2-5.4 [facility] Comment on above: Performed By: #### L 100.0100, L500.4050, L3400.8000 #### [facility] [address] [place], [address] RDW SD 46.3 fl High 35.1-43.9 [facility] Comment on above: Performed By: #### L 100.0100, L500.4050, L3400.8000 #### [facility] [address] [place], [address] WBC (Bld) [#/Vol] 6.7 10*3/uL Normal 4.4-11.0 [facility] Comment on above: Performed By: #### L 100.0100, L500.4050, L3400.8000 #### [facility] [address] [place], [address] Carbon dioxide measurementOr dered By: Maria A Carranza on 06-06-2024 CO2 [Moles/Vol] 25.0 mmol/L 21.0-32.0 [facility] Chloride measurementOrdered By: Maria A Carranza on 06-06-2024 Chloride [Moles/Vol] 106 mmol/L 98-107 [facility] Comprehensive Metabolic Prof ilon 06-06-2024 Albumin [Mass/Vol] 3.7 g/dL Normal 3.2-5.0 [facility] Comment on above: Performed By: #### L 100.0100, L500.4050, L3400.8000 #### [facility] [address] [place], [address] Albumin/Globulin [Mass ratio] 1.1 {ratio} Normal 0.9-2.4 [facility] Comment on above: Performed By: #### L 100.0100, L500.4050, L3400.8000 #### [facility] [address] [place], [address] ALK P 152 U/L High 45-117 [facility] Comment on above: Performed By: #### L 100.0100, L500.4050, L3400.8000 #### [facility] [address] [place], [address] ALT [Catalytic activity/Vol] 26 U/L Normal 13-56 [facility] Comment on above: Performed By: #### L 100.0100, L500.4050, L3400.8000 #### [facility] [address] [place], [address] AST [Catalytic activity/Vol] 16 U/L Normal 15-37 [facility] Comment on above: Performed By: #### L 100.0100, L500.4050, L3400.8000 #### [facility] [address] [place], [address] Bilirubin [Mass/Vol] 0.40 mg/dL Normal 0.20-1.00 [facility] Comment on above: Result Comment: For patients on eltrombopag therapy, use of Dimension [place] TBIL is not recommended. Performed By: #### L 100.0100, L500.4050, L3400.8000 #### [facility] [address] [place], [address] BUN/CRE 20.4 RATIO High 10-20 [facility] Comment on above: Performed By: #### L 100.0100, L500.4050, L3400.8000 #### [facility] [address] [place], [address] CA,Total 9.8 mg/dL Normal 8.5-10.1 [facility] Comment on above: Performed By: #### L 100.0100, L500.4050, L3400.8000 #### [facility] [address] [place], [address] Chloride [Moles/Vol] 106 mmol/L Normal 98-107 [facility] Comment on above: Performed By: #### L 100.0100, L500.4050, L3400.8000 #### [facility] [address] [place], [address] CO2 [Moles/Vol] 25.0 mmol/L Normal 21.0-32.0 [facility] Comment on above: Performed By: #### L 100.0100, L500.4050, L3400.8000 #### [facility] [address] [place], [address] Creatinine [Mass/Vol] 0.83 mg/dL Normal 0.55-1.02 [facility] Comment on above: Result Comment: The validity of the calculated GFR GFRAA in patients over 70 years has not been determined. Clinical correlation is essential. Performed By: #### L 100.0100, L500.4050, L3400.8000 #### [facility] [address] [place], [address] EST GFR - AA 89 mL/min Normal >60 [facility] Comment on above: Result Comment: Afri can [place] GFR Calc Performed By: #### L 100.0100, L500.4050, L3400.8000 #### [facility] [address] [place], [address] GAP 8 Normal 5-15 [facility] Comment on above: Performed By: #### L 100.0100, L500.4050, L3400.8000 #### [facility] [address] [place], [address] GFR/1.73 sq M.predicted among non-blacks MDRD (S/P/Bld) [Vol rate/Area] 74 mL/min/{1.73_m2} Normal >60 [facility] Comment on above: Result Comment: Non- GFR Calc Performed By: #### L 100.0100, L500.4050, L3400.8000 #### [facility] [address] [place], [address] Globulin (S) [Mass/Vol] 3.4 g/dL Normal 2.2-4.2 [facility] Comment on above: Performed By: #### L 100.0100, L500.4050, L3400.8000 #### [facility] [address] [place], [address] Glucose [Mass/Vol] 89 mg/dL Normal 74-106 [facility] Comment on above: Performed By: #### L 100.0100, L500.4050, L3400.8000 #### [facility] [address] [place], [address] Potassium [Moles/Vol] 4.7 mmol/L Normal 3.5-5.1 [facility] Comment on above: Performed By: #### L 100.0100, L500.4050, L3400.8000 #### [facility] [address] [place], [address] Sodium [Moles/Vol] 139 mmol/L Normal 136-145 [facility] Comment on above: Performed By: #### L 100.0100, L500.4050, L3400.8000 #### [facility] [address] [place], [address] T PROT 7.1 g/dL Normal 6.4-8.2 [facility] Comment on above: Performed By: #### L 100.0100, L500.4050, L3400.8000 #### [facility] [address] [place], [address] Urea nitrogen [Mass/Vol] 17 mg/dL Normal 7-18 [facility] Comment on above: Performed By: #### L 100.0100, L500.4050, L3400.8000 #### [facility] [address] [place], [address] Eosinophil percentageOrdered By: Maria A Carranza on 06-06-2024 Eosinophils/100 WBC (Bld) 2.8 % 0-5 [facility] Erythrocyte distribution wid th ratioOrdered By: Maria A Carranza on 06-06-2024 Erythrocyte distribution width (RBC) [Ratio] 13.8 % 11.6-14.6 [facility] Erythrocyte distribution wid th standard deviationOrdered By: Maria A Carranza on 06-06-2024 Erythrocyte distribution width (RBC) [Entitic vol] 46.3 fL High 35.1-43.9 [facility] Estimated glomerular filtrat ion rate (GFR) AmericanOrdered By: Maria A Carranza on 06-06-2024 Estimated GFR (MDRD) Amer 89 mL/min >60 [facility] Comment on above: GFR Calc Glomerular filtration rate ( GFR) estimationOrdered By: Maria A Carranza on 06-06-2024 Estimated GFR (MDRD) Non-Af Amer 74 mL/min >60 [facility] Comment on above: Non- GFR Calc Glucose measurementOrdered B y: Maria A Carranza on 06-06-2024 Glucose [Mass/Vol] 89 mg/dL 74-106 [facility] Hematocrit Auto (Bld) [Volum e fraction]Ordered By: Maria A Carranza on 06-06-2024 Hematocrit (Bld) [Volume fraction] 44.2 % 37-47 [facility] Hemoglobin measurementOrdere d By: Maria A Carranza on 06-06-2024 Hemoglobin (Bld) [Mass/Vol] 14.3 g/dL 12.0-15.0 [facility] Immature granulocytes/100 WB C Auto (Bld)Ordered By: Maria A Carranza on 06-06-2024 Immature granulocytes/100 WBC (Bld) 0.300 % 0.0-0.9 [facility] Comment on above: IG% - Immature Granu locytes (promyelocytes, myelocytes and metamyelocytes) > 1% indicates that a LEFT SHIFT is Present. Laboratory - Chemistry and C hemistry - challengeOrdered By: Maria A Carranza on 06-06-2024 AST [Catalytic activity/Vol] 16 U/L 15-37 [facility] Lymphocytes Auto (Unsp spec) [#/Vol]Ordered By: Maria A Carranza on 06-06-2024 Lymphocytes (Bld) [#/Vol] 1.90 10*3/uL 0.83-4.51 [facility] Lymphocytes/100 WBC Auto (Un sp spec)Ordered By: Maria A Carranza on 06-06-2024 Lymphocytes/100 WBC (Bld) 28.4 % 19-41 [facility] M. tuberculosis tuberculin s jm IFN-g Ql (Bld)Ordered By: Maria A Carranza on 06-06-2024 TB Test (QFT) Antigen 1 0.05 IU/mL . [facility] MCV (mean corpuscular volume ) determinationOrdered By: Maria A Carranza on 06-06-2024 MCV (RBC) [Entitic vol] 92.3 fL 81-99 [facility] Mean corpuscular hemoglobin (MCH) determinationOrdered By: Maria A Carranza on 06-06-2024 MCH (RBC) [Entitic mass] 29.9 pg 27.0-32.0 [facility] Mean corpuscular hemoglobin concentration (MCHC) determinationOrdered By: Maria A Carranza on 06-06-2024 MCHC (RBC) [Mass/Vol] 32.4 g/dL 32-36 [facility] Mean platelet volume determi nationOrdered By: Maria A Carranza on 06-06-2024 Platelet mean volume (Bld) [Entitic vol] 11.1 fL 6.2-12.0 [facility] Monocyte percentageOrdered B y: Maria A Carranza on 06-06-2024 Monocytes/100 WBC (Bld) 8.8 % 0-10 [facility] Neutrophil percentageOrdered By: Maria A Carranza on 06-06-2024 Neutrophils/100 WBC (Bld) 59.0 % 47-70 [facility] Nucleated red blood cell per centageOrdered By: Maria A Carranza on 06-06-2024 Nucleated RBC/100 WBC (Bld) [Ratio] 0 % 0-5 [facility] Platelet countOrdered By: Adalid Carranza on 06-06-2024 Platelets (Bld) [#/Vol] 365 10*3/uL 150-450 [facility] Potassium measurementOrdered By: Maria A Carranza on 06-06-2024 Potassium [Moles/Vol] 4.7 mmol/L 3.5-5.1 [facility] Quantiferon-TB Gold Plus tania tOrdered By: Maria A Carranza on 06-06-2024 TB Test (QFT) Comment . [facility] Comment on above: QuantiFERON-TB Gold [...] Test (QFT) Antigen 2 0.05 IU/mL . [facility] TB Test (QFT) Mitogen > 10.00 IU/mL . [facility] TB Test (QFT) Nil 0.04 IU/mL . [facility] TB Test (QFT) Positive Criteria Negative Negative [facility] Comment on above: No response [...] the productionof interferon gamma. Chemiluminescence immunoassaymethodologyPerformed at: [facility] [address] [id number] Director: Haris Sheridan PhD, Phone: [phone] RBC Auto (Bld) [#/Vol]Ordere d By: Maria A Carranza on 06-06-2024 RBC (Bld) [#/Vol] 4.79 10*6/uL 4.2-5.4 [facility] Serum anion gap measurementO rdered By: Maria A Carranza on 06-06-2024 Anion gap [Moles/Vol] 8 mmol/L 5-15 [facility] Serum globulin measurementOr dered By: Maria A Carranza on 06-06-2024 Globulin (S) [Mass/Vol] 3.4 g/dL 2.2-4.2 [facility] Serum or plasma alanine bennett otransferase (ALT) measurementOrdered By: Maria A Carranza on 06-06-2024 ALT [Catalytic activity/Vol] 26 U/L 13-56 [facility] Serum or plasma albumin kylah urement (mass/volume)Ordered By: Maria A Carranza on 06-06-2024 Albumin [Mass/Vol] 3.7 g/dL 3.2-5.0 [facility] Serum or plasma alkaline asmita sphatase measurementOrdered By: Maria A Carranza on 06-06-2024 ALP [Catalytic activity/Vol] 152 U/L High 45-117 [facility] Serum or plasma calcium kylah urement (mass/volume)Ordered By: Maria A Carranza on 06-06-2024 Calcium [Mass/Vol] 9.8 mg/dL 8.5-10.1 [facility] Serum or plasma creatinine m easurement (mass/volume)Ordered By: Maria A Carranza on 06-06-2024 Creatinine [Mass/Vol] 0.83 mg/dL 0.55-1.02 [facility] Comment on above: The validity of the calculated GFR & GFRAA in patients over 70 years has not been determined. Clinical correlation is essential. Serum or plasma urea nitroge n measurement (mass/volume)Ordered By: Maria A Carranza on 06-06-2024 Urea nitrogen [Mass/Vol] 17 mg/dL 7-18 [facility] Sodium levelOrdered By: Jing Carranza on 06-06-2024 Sodium [Moles/Vol] 139 mmol/L 136-145 [facility] Total proteinOrdered By: Jana Carranza on 06-06-2024 Protein [Mass/Vol] 7.1 g/dL 6.4-8.2 [facility] White blood cell (WBC) count Ordered By: Maria A Carranza on 06-06-2024 WBC (Bld) [#/Vol] 6.7 10*3/uL 4.4-11.0 [facility] PT D/C Summary (1)on [facility] PT D/C Summary (1) [facility] Physical [facility] [address] [place] [address] / REHABILITATION SERVICES DISCHARGE SUMMARY MR#: [id number] Acct: [id number] Name: FOZIA BREEN Rep #: [id number] : 1960 63 From: Andrea Garcia PT, Cert. T, OCS Referring Dr.: Dr. Maria A Carranza MD Status: R EG RCR Insurance: [employer] SELF PAY INSURANCE Discharge Summary D/C summary: [...] please feel free to call me at [phone]. Thank you for the referral of this patient. Sincerely, Andrea Garcia, PT, Cert MDT, OCS Balance/Gait/Functional tests Balance/Special Test Scores Lower Extremity Functional Score: 30 Improvement % Improvement: 20 04/17/24 1604 CC: Dr. Chasity Rubi DO; Dr. Maria A Carranza MD JLA Signed Normal [facility] Absolute neutrophil countOrd ered By: Maria A Carranza on 04-03-2024 Neutrophils (Bld) [#/Vol] 4.4 10*3/uL 2.0-7.7 [facility] Albumin to globulin ratioOrd ered By: Maria A Carranza on 04-03-2024 Albumin/Globulin [Mass ratio] 1.2 {ratio} 0.9-2.4 [facility] Basophil percentageOrdered B y: Maria A Carranza on 04-03-2024 Basophils/100 WBC (Bld) 0.9 % 0-1 [facility] Bilirubin, totalOrdered By: Maria A Carranza on 04-03-2024 Bilirubin [Mass/Vol] 0.40 mg/dL 0.20-1.00 [facility] Comment on above: For patients on eltr ombopag therapy, use of Dimension [place] TBIL is not recommended. Blood urea nitrogen (BUN)/cr eatinine ratioOrdered By: Maria A Carranza on 04-03-2024 Urea nitrogen/Creatinine [Mass ratio] 21.7 mg/mg High 10-20 [facility] CBC W/Diff, Automatedon 03-10 Absolute Lymph 1.75 X10 3/uL Normal 0.83-4.51 [facility] Comment on above: Performed By: #### L 500.4050, L100.0100 ####[facility] [id number] [place], [address] Absolute Neut 4.4 X10 3/uL Normal 2.0-7.7 [facility] Comment on above: Performed By: #### L 500.4050, L100.0100 ####[facility] [id number] [place], [address] Basophils/100 WBC (Bld) 0.9 % Normal 0-1 [facility] Comment on above: Performed By: #### L 500.4050, L100.0100 ####[facility] [address] [place], [address] Eosinophils/100 WBC (Bld) 3.4 % Normal 0-5 [facility] Comment on above: Performed By: #### L 500.4050, L100.0100 ####[facility] [address] [place], [address] Erythrocyte distribution width (RBC) [Ratio] 13.3 % Normal 11.6-14.6 [facility] Comment on above: Performed By: #### L 500.4050, L100.0100 ####[facility] [address] [place], [address] Hematocrit (Bld) [Volume fraction] 44.6 % Normal 37-47 [facility] Comment on above: Performed By: #### L 500.4050, L100.0100 ####[facility] [address] [place], [address] Hemoglobin (Bld) [Mass/Vol] 13.8 g/dL Normal 12.0-15.0 [facility] Comment on above: Performed By: #### L 500.4050, L100.0100 ####[facility] [address] [place], [address] IG% 0.300 Normal 0.0-0.9 [facility] Comment on above: Result Comment: IG% - Immature Granulocytes (promyelocytes, myelocytes and metamyelocytes) > 1% indicates that a LEFT SHIFT is Present. Performed By: #### L 500.4050, L100.0100 ####[facility] [address] [place], [address] Lymphocytes/100 WBC (Bld) 24.9 % Normal 19-41 [facility] Comment on above: Performed By: #### L 500.4050, L100.0100 ####[facility] [address] [place], [address] MCH (RBC) [Entitic mass] 29.2 pg Normal 27.0-32.0 [facility] Comment on above: Performed By: #### L 500.4050, L100.0100 ####[facility] [address] [place], [address] MCHC (RBC) [Mass/Vol] 30.9 g/dL Low 32-36 [facility] Comment on above: Performed By: #### L 500.4050, L100.0100 ####[facility] [address] [place], [address] MCV (RBC) [Entitic vol] 94.3 fL Normal 81-99 [facility] Comment on above: Performed By: #### L 500.4050, L100.0100 ####[facility] [address] [place], [address] Monocytes/100 WBC (Bld) 8.7 % Normal 0-10 [facility] Comment on above: Performed By: #### L 500.4050, L100.0100 ####[facility] [address] [place], [address] Neutrophils/100 WBC (Bld) 61.8 % Normal 47-70 [facility] Comment on above: Performed By: #### L 500.4050, L100.0100 ####[facility] [address] [place], [address] Nucleated RBC (Bld) [#/Vol] 0 10*3/uL Normal 0-5 [facility] Comment on above: Performed By: #### L 500.4050, L100.0100 ####[facility] [address] [place], [address] Platelet mean volume (Bld) [Entitic vol] 11.8 fL Normal 6.2-12.0 [facility] Comment on above: Performed By: #### L 500.4050, L100.0100 ####[facility] [address] [place], [address] Platelets (Bld) [#/Vol] 343 10*3/uL Normal 150-450 [facility] Comment on above: Performed By: #### L 500.4050, L100.0100 ####[facility] [address] [place], [address] RBC (Bld) [#/Vol] 4.73 10*6/uL Normal 4.2-5.4 [facility] Comment on above: Performed By: #### L 500.4050, L100.0100 ####[facility] [address] [place], [address] RDW SD 45.8 fl High 35.1-43.9 [facility] Comment on above: Performed By: #### L 500.4050, L100.0100 ####[facility] [address] [place], [address] WBC (Bld) [#/Vol] 7.0 10*3/uL Normal 4.4-11.0 [facility] Comment on above: Performed By: #### L 500.4050, L100.0100 ####[facility] [address] [place], [address] Carbon dioxide measurementOr dered By: Maria A Carranza on 04-03-2024 CO2 [Moles/Vol] 28.0 mmol/L 21.0-32.0 [facility] Chloride measurementOrdered By: Maria A Carranza on 04-03-2024 Chloride [Moles/Vol] 105 mmol/L 98-107 [facility] Comprehensive Metabolic Prof ilon 04-03-2024 Albumin [Mass/Vol] 3.9 g/dL Normal 3.2-5.0 [facility] Comment on above: Performed By: #### L 500.4050, L100.0100 ####[facility] [address] [place], [address] Albumin/Globulin [Mass ratio] 1.2 {ratio} Normal 0.9-2.4 [facility] Comment on above: Performed By: #### L 500.4050, L100.0100 ####[facility] [address] [place], [address] ALK P 154 U/L High 45-117 [facility] Comment on above: Performed By: #### L 500.4050, L100.0100 ####[facility] [address] [place], [address] ALT [Catalytic activity/Vol] 36 U/L Normal 13-56 [facility] Comment on above: Performed By: #### L 500.4050, L100.0100 ####[facility] [address] [place], [address] AST [Catalytic activity/Vol] 23 U/L Normal 15-37 [facility] Comment on above: Performed By: #### L 500.4050, L100.0100 ####[facility] [address] [place], [address] Bilirubin [Mass/Vol] 0.40 mg/dL Normal 0.20-1.00 [facility] Comment on above: Result Comment: For patients on eltrombopag therapy, use of Dimension [place] TBIL is not recommended. Performed By: #### L 500.4050, L100.0100 ####[facility] [address] [place], [address] BUN/CRE 21.7 RATIO High 10-20 [facility] Comment on above: Performed By: #### L 500.4050, L100.0100 ####[facility] [address] [place], [address] CA,Total 9.7 mg/dL Normal 8.5-10.1 [facility] Comment on above: Performed By: #### L 500.4050, L100.0100 ####[facility] [address] [place], [address] Chloride [Moles/Vol] 105 mmol/L Normal 98-107 [facility] Comment on above: Performed By: #### L 500.4050, L100.0100 ####[facility] [address] [place], [address] CO2 [Moles/Vol] 28.0 mmol/L Normal 21.0-32.0 [facility] Comment on above: Performed By: #### L 500.4050, L100.0100 ####[facility] [address] [place], [address] Creatinine [Mass/Vol] 0.78 mg/dL Normal 0.55-1.02 [facility] Comment on above: Result Comment: The validity of the calculated GFR GFRAA in patients over 70 years has not been determined. Clinical correlation is essential. Performed By: #### L 500.4050, L100.0100 ####[facility] [address] [place], [address] EST GFR - AA 96 mL/min Normal >60 [facility] Comment on above: Result Comment: Afri can [place] GFR Calc Performed By: #### L 500.4050, L100.0100 ####[facility] [address] [place], [address] GAP 7 Normal 5-15 [facility] Comment on above: Performed By: #### L 500.4050, L100.0100 ####[facility] [address] [place], [address] GFR/1.73 sq M.predicted among non-blacks MDRD (S/P/Bld) [Vol rate/Area] 79 mL/min/{1.73_m2} Normal >60 [facility] Comment on above: Result Comment: Non- GFR Calc Performed By: #### L 500.4050, L100.0100 ####[facility] [address] [place], [address] Globulin (S) [Mass/Vol] 3.2 g/dL Normal 2.2-4.2 [facility] Comment on above: Performed By: #### L 500.4050, L100.0100 ####[facility] [address] [place], [address] Glucose [Mass/Vol] 79 mg/dL Normal 74-106 [facility] Comment on above: Performed By: #### L 500.4050, L100.0100 ####[facility] [address] [place], [address] Potassium [Moles/Vol] 4.0 mmol/L Normal 3.5-5.1 [facility] Comment on above: Performed By: #### L 500.4050, L100.0100 ####[facility] [address] [place], [address] Sodium [Moles/Vol] 139 mmol/L Normal 136-145 [facility] Comment on above: Performed By: #### L 500.4050, L100.0100 ####[facility] [address] [place], [address] T PROT 7.1 g/dL Normal 6.4-8.2 [facility] Comment on above: Performed By: #### L 500.4050, L100.0100 ####[facility] [address] [place], [place], [address] Urea nitrogen [Mass/Vol] 17 mg/dL Normal 7-18 [facility] Comment on above: Performed By: #### L 500.4050, L100.0100 ####[facility] [address] [place], [address] Eosinophil percentageOrdered By: Maria A Carranza on 04-03-2024 Eosinophils/100 WBC (Bld) 3.4 % 0-5 [facility] Erythrocyte distribution wid th ratioOrdered By: Maria A Carranza on 04-03-2024 Erythrocyte distribution width (RBC) [Ratio] 13.3 % 11.6-14.6 [facility] Erythrocyte distribution wid th standard deviationOrdered By: Maria A Carranza on 04-03-2024 Erythrocyte distribution width (RBC) [Entitic vol] 45.8 fL High 35.1-43.9 [facility] Estimated glomerular filtrat ion rate (GFR) AmericanOrdered By: Maria A Carranza on 04-03-2024 Estimated GFR (MDRD) Amer 96 mL/min >60 [facility] Comment on above: GFR Calc Glomerular filtration rate ( GFR) estimationOrdered By: Maria A Carranza on 04-03-2024 Estimated GFR (MDRD) Non-Af Amer 79 mL/min >60 [facility] Comment on above: Non- GFR Calc Glucose measurementOrdered B y: Maria A Carranza on 04-03-2024 Glucose [Mass/Vol] 79 mg/dL 74-106 [facility] Hematocrit Auto (Bld) [Volum e fraction]Ordered By: Maria A Carranza on 04-03-2024 Hematocrit (Bld) [Volume fraction] 44.6 % 37-47 [facility] Hemoglobin measurementOrdere d By: Maria A Carranza on 04-03-2024 Hemoglobin (Bld) [Mass/Vol] 13.8 g/dL 12.0-15.0 [facility] Immature granulocytes/100 WB C Auto (Bld)Ordered By: Maria Atammie Carranza on 04-03-2024 Immature granulocytes/100 WBC (Bld) 0.300 % 0.0-0.9 [facility] Comment on above: IG% - Immature Granu locytes (promyelocytes, myelocytes and metamyelocytes) > 1% indicates that a LEFT SHIFT is Present. Laboratory - Chemistry and C hemistry - challengeOrdered By: Maria A Carranza on 04-03-2024 AST [Catalytic activity/Vol] 23 U/L 15-37 [facility] Lymphocytes Auto (Unsp spec) [#/Vol]Ordered By: [facility] Tere on 04-03-2024 Lymphocytes (Bld) [#/Vol] 1.75 10*3/uL 0.83-4.51 [facility] Lymphocytes/100 WBC Auto (Un sp spec)Ordered By: Maria Atammie Carranza on 04-03-2024 Lymphocytes/100 WBC (Bld) 24.9 % 19-41 [facility] MCV (mean corpuscular volume ) determinationOrdered By: Maria Atammie Carranza on 04-03-2024 MCV (RBC) [Entitic vol] 94.3 fL 81-99 [facility] Mean corpuscular hemoglobin (MCH) determinationOrdered By: Maria Atammie Carranza on 04-03-2024 MCH (RBC) [Entitic mass] 29.2 pg 27.0-32.0 [facility] Mean corpuscular hemoglobin concentration (MCHC) determinationOrdered By: Maria Atammie Carranza on 04-03-2024 MCHC (RBC) [Mass/Vol] 30.9 g/dL Low 32-36 [facility] Mean platelet volume determi nationOrdered By: [facility] Tere on 04-03-2024 Platelet mean volume (Bld) [Entitic vol] 11.8 fL 6.2-12.0 [facility] Monocyte percentageOrdered B y: Maria A Carranza on 04-03-2024 Monocytes/100 WBC (Bld) 8.7 % 0-10 [facility] Neutrophil percentageOrdered By: Maria A Carranza on 04-03-2024 Neutrophils/100 WBC (Bld) 61.8 % 47-70 [facility] Nucleated red blood cell per centageOrdered By: Maria A Carranza on 04-03-2024 Nucleated RBC/100 WBC (Bld) [Ratio] 0 % 0-5 [facility] Platelet countOrdered By: Adalid Carranza on 04-03-2024 Platelets (Bld) [#/Vol] 343 10*3/uL 150-450 [facility] Potassium measurementOrdered By: Maria A Carranza on 04-03-2024 Potassium [Moles/Vol] 4.0 mmol/L 3.5-5.1 [facility] RBC Auto (Bld) [#/Vol]Ordere d By: Maria A Carranza on 04-03-2024 RBC (Bld) [#/Vol] 4.73 10*6/uL 4.2-5.4 [facility] Serum anion gap measurementO rdered By: Maria A Carranza on 04-03-2024 Anion gap [Moles/Vol] 7 mmol/L 5-15 [facility] Serum globulin measurementOr dered By: Maria A Carranza on 04-03-2024 Globulin (S) [Mass/Vol] 3.2 g/dL 2.2-4.2 [facility] Serum or plasma alanine bennett otransferase (ALT) measurementOrdered By: Maria A Carranza on 04-03-2024 ALT [Catalytic activity/Vol] 36 U/L 13-56 [facility] Serum or plasma albumin kylah urement (mass/volume)Ordered By: Maria A Carranza on 04-03-2024 Albumin [Mass/Vol] 3.9 g/dL 3.2-5.0 [facility] Serum or plasma alkaline asmita sphatase measurementOrdered By: Maria A Carranza on 04-03-2024 ALP [Catalytic activity/Vol] 154 U/L High 45-117 [facility] Serum or plasma calcium kylah urement (mass/volume)Ordered By: Maria A Carranza on 04-03-2024 Calcium [Mass/Vol] 9.7 mg/dL 8.5-10.1 [facility] Serum or plasma creatinine m easurement (mass/volume)Ordered By: Maria A Carranza on 04-03-2024 Creatinine [Mass/Vol] 0.78 mg/dL 0.55-1.02 [facility] Comment on above: The validity of the calculated GFR & GFRAA in patients over 70 years has not been determined. Clinical correlation is essential. Serum or plasma urea nitroge n measurement (mass/volume)Ordered By: Maria A Carranza on 04-03-2024 Urea nitrogen [Mass/Vol] 17 mg/dL 7-18 [facility] Sodium levelOrdered By: Jing Carranza on 04-03-2024 Sodium [Moles/Vol] 139 mmol/L 136-145 [facility] Total proteinOrdered By: Jana Carranza on 04-03-2024 Protein [Mass/Vol] 7.1 g/dL 6.4-8.2 [facility] White blood cell (WBC) count Ordered By: Maria A Carranza on 04-03-2024 WBC (Bld) [#/Vol] 7.0 10*3/uL 4.4-11.0 [facility] Absolute lymphocyte countOrd ered By: Maria A Carranza on 08-05-2023 Lymphocytes Auto (Unsp spec) [#/Vol] 2.38 10*3/uL 0.83-4.51 [facility] Automated lymphocyte count a s percentage of total leukocytesOrdered By: Maria A Carranza on 08-05-2023 Lymphocytes/100 WBC Auto (Unsp spec) 30.4 % 19-41 [facility] Basophil percentageOrdered B y: Maria A Carranza on 08-05-2023 Basophil percentage < 10.0 IU/mL <15 [facility] Basophils/100 WBC (Bld) 0.8 % 0-1 [facility] Bilirubin [Mass/Vol] 0.30 mg/dL 0.20-1.00 [facility] Comment on above: For patients on eltr ombopag therapy, use of Dim[place] TBIL is not recommended. Chloride [Moles/Vol] 108 mmol/L 98-107 [facility] Eosinophils/100 WBC (Bld) 4.0 % 0-5 [facility] Glucose [Mass/Vol] 89 mg/dL 74-106 [facility] Hemoglobin (Bld) [Mass/Vol] 13.9 g/dL 12.0-15.0 [facility] Monocytes/100 WBC (Bld) 7.2 % 0-10 [facility] Neutrophils (Bld) [#/Vol] 4.5 10*3/uL 2.0-7.7 [facility] Neutrophils/100 WBC (Bld) 57.2 % 47-70 [facility] Potassium [Moles/Vol] 3.6 mmol/L 3.5-5.1 [facility] Protein [Mass/Vol] 7.3 g/dL 6.4-8.2 [facility] Sodium [Moles/Vol] 141 mmol/L 136-145 [facility] WBC (Bld) [#/Vol] 7.8 10*3/uL 4.4-11.0 [facility] Determination of erythrocyte mean corpuscular volume (MCV)Ordered By: Maria A Carranza on 08-05-2023 MCV (RBC) [Entitic vol] 89.7 fL 81-99 [facility] Erythrocyte distribution wid th ratioOrdered By: Maria A Carranza on 08-05-2023 Erythrocyte distribution width (RBC) [Ratio] 13.2 % 11.6-14.6 [facility] Erythrocyte distribution wid th standard deviationOrdered By: Maria A Carranza on 08-05-2023 Erythrocyte distribution width (RBC) [Entitic vol] 43.4 fL 35.1-43.9 [facility] Erythrocyte sedimentation ra teOrdered By: Maria A Carranza on 08-05-2023 ESR (Bld) [Velocity] 14 mm/h 0-30 [facility] Hematocrit Auto (Bld) [Volum e fraction]Ordered By: Maria A Carranza on 08-05-2023 Hematocrit (Bld) [Volume fraction] 43.6 % 37-47 [facility] Immature granulocytes/100 WB C Auto (Bld)Ordered By: Maria A Carranza on 08-05-2023 Immature granulocytes/100 WBC (Bld) 0.400 % 0.0-0.9 [facility] Comment on above: IG% - Immature Granu locytes (promyelocytes, myelocytes and metamyelocytes) > 1% indicates that a LEFT SHIFT is Present. Laboratory - Chemistry and C hemistry - challengeOrdered By: Maria A Carranza on 08-05-2023 Albumin/Globulin [Mass ratio] 1.1 {ratio} 0.9-2.4 [facility] ALP [Catalytic activity/Vol] 149 U/L 45-117 [facility] ALT [Catalytic activity/Vol] 27 U/L 13-56 [facility] CO2 [Moles/Vol] 28.0 mmol/L 21.0-32.0 [facility] Globulin (S) [Mass/Vol] 3.4 g/dL 2.2-4.2 [facility] Urea nitrogen/Creatinine [Mass ratio] 20.6 mg/mg 10-20 [facility] Laboratory - Hematology and Cell countsOrdered By: Maria A Carranza on 08-05-2023 MCH (RBC) [Entitic mass] 28.6 pg 27.0-32.0 [facility] MCHC (RBC) [Mass/Vol] 31.9 g/dL 32-36 [facility] Nucleated RBC/100 WBC (Bld) [Ratio] 0 % 0-5 [facility] Platelet mean volume (Bld) [Entitic vol] 12.0 fL 6.2-12.0 [facility] Platelets (Bld) [#/Vol] 307 10*3/uL 150-450 [facility] No Panel InformationOrdered By: Maria A Carranza on 08-05-2023 Anti-Nuclear Antibody Screen Negative Negative [facility] Comment on above: Performed at: [facility] [place] [address] [id number] Director: Haris Sheridan PhD, Phone: [phone] C-Reactive Protein Extended Range 3.53 mg/L 0.0-3.0 [facility] Comment on above: C-Reactive Protein ( CRP) provides useful information for thediagnosis, therapy and monitoring of inflammatory processesand associated diseases. For the evaluation of Relative Riskfor Cardiovascular Disease, a High Sensitivity CRP (HSCRP)should be ordered. Estimated GFR (MDRD) Amer 71 mL/min >60 [facility] Comment on above: GFR Calc Estimated GFR (MDRD) Non-Af Amer 59 mL/min >60 [facility] Comment on above: Non- GFR Calc Hepatitis B Surface Antigen Non-Reactive Nonreactive [facility] Hepatitis C Antibody Non-Reactive Nonreactive [facility] Comment on above: Non Reactive: < 0.8 Equivocal: >/= 0.8 to < 1.0 Reactive: >/= 1.0The CDC requires that a reactive/equivocal HCV antibody result be sent out for confirmation. HCV Quant by PCR testing. RBC Auto (Bld) [#/Vol]Ordere d By: Maria A Carranza on 08-05-2023 RBC (Bld) [#/Vol] 4.86 10*6/uL 4.2-5.4 [facility] Serum cyclic citrullinated p eptide IgG antibody assay (units/volume)Ordered By: Maria A Carranza on 08-05-2023 Cyclic citrullinated peptide IgG Qn 2 units 0-19 [facility] Comment on above: Negative <20 Weak po sitive 20 - 39 Moderate positive 40 - 59 Strong positive >59Performed at: [facility] [place] [id number] Director: Haris Sheridan PhD, Phone: [phone] Serum hepatitis B virus surf meka antibody IgG detectionOrdered By: Maria A Carranza on 08-05-2023 HBV surface IgG Ql (S) Non-Reactive [facility] Comment on above: Non Reactive: Incons istent with immunity less than <10 mIU/mL Reactive: Consistent with immunity greater than or equal to 10 mIU/mL Serum or plasma calcium kylah urement (mass/volume)Ordered By: Maria A Carranza on 08-05-2023 Calcium [Mass/Vol] 9.1 mg/dL 8.5-10.1 [facility] Serum or plasma creatinine m easurement (mass/volume)Ordered By: Maria A Carranza on 08-05-2023 Creatinine [Mass/Vol] 1.02 mg/dL 0.55-1.02 [facility] Comment on above: The validity of the calculated GFR & GFRAA in patients over 70 years has not been determined. Clinical correlation is essential. Serum or plasma urea nitroge n measurement (mass/volume)Ordered By: Maria A Carranza on 08-05-2023 Urea nitrogen [Mass/Vol] 21 mg/dL 7-18 [facility] Thin prep Papanicolaou smear with manual screeningOrdered By: Maria A Carranza on 08-05-2023 Thin prep Papanicolaou smear with manual screening 3.9 g/dL 3.2-5.0 [facility] Thin prep Papanicolaou smear with manual screening 17 U/L 15-37 [facility] Thin prep Papanicolaou smear with manual screening 5 5-15 [facility] Absolute lymphocyte countOrd ered By: Emilie Medranopalomo on 04-20-2023 Lymphocytes Auto (Unsp spec) [#/Vol] 1.83 10*3/uL 0.83-4.51 [facility] Basophil percentageOrdered B y: Emilieivonne Wheatley on 04-20-2023 Basophils/100 WBC (Bld) 0.9 % 0-1 [facility] Bilirubin [Mass/Vol] 0.40 mg/dL 0.20-1.00 [facility] Comment on above: For patients on eltr ombopag therapy, use of Dim[place] TBIL is not recommended. Chloride [Moles/Vol] 108 mmol/L 98-107 [facility] Cholesterol [Mass/Vol] 196 mg/dL <200 [facility] Comment on above: <200 mg/dL Desirable 200-240 mg/dL Borderline >240 mg/dL High Risk Eosinophils/100 WBC (Bld) 2.9 % 0-5 [facility] Glucose [Mass/Vol] 90 mg/dL 74-106 [facility] Neutrophils (Bld) [#/Vol] 5.0 10*3/uL 2.0-7.7 [facility] Neutrophils/100 WBC (Bld) 64.6 % 47-70 [facility] Potassium [Moles/Vol] 4.5 mmol/L 3.5-5.1 [facility] Protein [Mass/Vol] 7.4 g/dL 6.4-8.2 [facility] Sodium [Moles/Vol] 141 mmol/L 136-145 [facility] Triglyceride [Mass/Vol] 117 mg/dL <199 [facility] Comment on above: The drugs N-Acetylcy steine and Metamizole may falsely depress this assay.Serum Triglycerides Reference Interval Normal <150 mg/dL Borderline high 150 - 199 mg/dL High 200 - 499 mg/dL Very High > or = 500 mg/dL WBC (Bld) [#/Vol] 7.8 10*3/uL 4.4-11.0 [facility] Blood erythrocytes count (nu mber/volume)Ordered By: Emilie Wheatley on 04-20-2023 RBC (Bld) [#/Vol] 5.01 10*6/uL 4.2-5.4 [facility] Blood hemoglobin measurement (mass/volume)Ordered By: Emilie Wheatley on 04-20-2023 Hemoglobin (Bld) [Mass/Vol] 14.2 g/dL 12.0-15.0 [facility] Blood lymphocytes/100 leukoc ytesOrdered By: Emilie Wheatley on 04-20-2023 Lymphocytes/100 WBC (Bld) 23.5 % 19-41 [facility] Blood monocytes/100 leukocyt esOrdered By: Emilie Wheatley on 04-20-2023 Monocytes/100 WBC (Bld) 7.7 % 0-10 [facility] Blood platelet mean volumeOr dered By: Emilie Wheatley on 04-20-2023 Platelet mean volume (Bld) [Entitic vol] 11.7 fL 6.2-12.0 [facility] Determination of erythrocyte mean corpuscular volume (MCV)Ordered By: Emilie Wheatley on 04-20-2023 MCV (RBC) [Entitic vol] 92.0 fL 81-99 [facility] Hematocrit Auto (Bld) [Volum e fraction]Ordered By: Emilie Wheatley on 04-20-2023 Hematocrit (Bld) [Volume fraction] 46.1 % 37-47 [facility] Laboratory - Chemistry and C hemistry - challengeOrdered By: Emilie Wheatley on 04-20-2023 ALP [Catalytic activity/Vol] 138 U/L 45-117 [facility] ALT [Catalytic activity/Vol] 23 U/L 13-56 [facility] CO2 [Moles/Vol] 26.0 mmol/L 21.0-32.0 [facility] Free T4 [Mass/Vol] 1.05 ng/dL 0.76-1.46 [facility] Globulin (S) [Mass/Vol] 3.4 g/dL 2.2-4.2 [facility] Urea nitrogen/Creatinine [Mass ratio] 19.2 mg/mg 10-20 [facility] Laboratory - Hematology and Cell countsOrdered By: Emilie Wheatley on 04-20-2023 Erythrocyte distribution width (RBC) [Entitic vol] 44.3 fL 35.1-43.9 [facility] Erythrocyte distribution width (RBC) [Ratio] 13.1 % 11.6-14.6 [facility] Immature granulocytes/100 WBC (Bld) 0.400 % 0.0-0.9 [facility] Comment on above: IG% - Immature Granu locytes (promyelocytes, myelocytes and metamyelocytes) > 1% indicates that a LEFT SHIFT is Present. MCH (RBC) [Entitic mass] 28.3 pg 27.0-32.0 [facility] Nucleated RBC/100 WBC (Bld) [Ratio] 0 % 0-5 [facility] MCHC Auto (RBC) [Mass/Vol]Or dered By: Emilie Wheatley on 04-20-2023 MCHC (RBC) [Mass/Vol] 30.8 g/dL 32-36 [facility] No Panel InformationOrdered By: Emilie Wheatley on 04-20-2023 Estimated GFR (MDRD) Amer 90 mL/min >60 [facility] Comment on above: GFR Calc Estimated GFR (MDRD) Non-Af Amer 74 mL/min >60 [facility] Comment on above: Non- GFR Calc Thyroid Stimulating Hormone (TSH) 3.92 uIU/mL 0.358-3.74 [facility] Vitamin D 25-Hydroxy 28.6 ng/mL [facility] Comment on above: Vitamin D 25(OH) Sta tus Range Deficiency <20 ng/mL (50nmol/L) Insufficiency 20 - 30 ng/mL (50 - 75 nmol/L) Sufficiency 30 - 100 ng/mL (75 - 250 nmol/L) Toxicity >100 ng/mL (>250 nmol/L) Platelets bldOrdered By: Moises Wheatley on 04-20-2023 Platelets (Bld) [#/Vol] 331 10*3/uL 150-450 [facility] Serum or plasma albumin kylah urement (mass/volume)Ordered By: Emilie Wheatley on 04-20-2023 Albumin [Mass/Vol] 4.0 g/dL 3.2-5.0 [facility] Serum or plasma albumin/glob ulin mass ratioOrdered By: Emilie Wheatley on 04-20-2023 Albumin/Globulin [Mass ratio] 1.2 {ratio} 0.9-2.4 [facility] Serum or plasma calcium kylah urement (mass/volume)Ordered By: Emilie Wheatley on 04-20-2023 Calcium [Mass/Vol] 9.3 mg/dL 8.5-10.1 [facility] Serum or plasma cholesterol in HDL measurement (mass/volume)Ordered By: Emilie Wheatley on 04-20-2023 Cholesterol in HDL [Mass/Vol] 53 mg/dL >40 [facility] Comment on above: The drugs N-Acetylcy steine and Metamizole may falsely depress this assay. Reference Range HDL <40 mg/dL Low HDL Cholesterol HDL >or= 60 mg/dL High HDL Cholesterol Serum or plasma cholesterol in VLDL measurement (mass/volume)Ordered By: Emilie Wheatley on 04-20-2023 Cholesterol in VLDL [Mass/Vol] 23 mg/dL 5-40 [facility] Serum or plasma creatinine m easurement (mass/volume)Ordered By: Emilie Wheatley on 04-20-2023 Creatinine [Mass/Vol] 0.83 mg/dL 0.55-1.02 [facility] Comment on above: The validity of the calculated GFR & GFRAA in patients over 70 years has not been determined. Clinical correlation is essential. Serum or plasma low density lipoprotein (LDL) cholesterol measurement (mass/volume)Ordered By: Emilie Wheatley on 04-20-2023 Cholesterol in LDL [Mass/Vol] 120 mg/dL 0-130 [facility] Serum or plasma urea nitroge n measurement (mass/volume)Ordered By: Emilie Wheatley on 04-20-2023 Urea nitrogen [Mass/Vol] 16 mg/dL 7-18 [facility] Thin prep Papanicolaou smear with manual screeningOrdered By: Emilie Wheatley 04-20-2023 Thin prep Papanicolaou smear with manual screening 17 U/L 15-37 [facility] Thin prep Papanicolaou smear with manual screening 7 5-15 [facility] Absolute lymphocyte counton 03-23-2022 Lymphocytes Auto (Unsp spec) [#/Vol] 2.32 10*3/uL 0.83-4.51 [facility] Work Phone: [phone] Basophil percentageon 2021 Basophils/100 WBC (Bld) 0.6 % 0-1 [facility] Work Phone: Bilirubin [Mass/Vol] 0.40 mg/dL 0.20-1.00 [facility] Work Phone: Comment on above: For patients on eltr ombopag therapy, use of Dimension [place] TBIL is not recommended. Chloride [Moles/Vol] 109 mmol/L 98-107 [facility] Work Phone: Cholesterol [Mass/Vol] 188 mg/dL <200 [facility] Work Phone: Comment on above: <200 mg/dL Desirable 200-240 mg/dL Borderline >240 mg/dL High Risk Eosinophils/100 WBC (Bld) 3.1 % 0-5 [facility] Work Phone: [phone] Glucose [Mass/Vol] 89 mg/dL 74-106 [facility] Work Phone: [phone] Neutrophils (Bld) [#/Vol] 4.6 10*3/uL 2.0-7.7 [facility] Work Phone: [phone] Neutrophils/100 WBC (Bld) 58.9 % 47-70 [facility] Work Phone: [phone] Potassium [Moles/Vol] 4.5 mmol/L 3.5-5.1 [facility] Work Phone: [phone] Protein [Mass/Vol] 7.1 g/dL 6.4-8.2 [facility] Work Phone: [phone] Sodium [Moles/Vol] 141 mmol/L 136-145 [facility] Work Phone: Triglyceride [Mass/Vol] 89 mg/dL <199 [facility] Work Phone: Comment on above: The drugs N-Acetylcy steine and Metamizole may falsely depress this assay.Serum Triglycerides Reference Interval Normal <150 mg/dL Borderline high 150 - 199 mg/dL High 200 - 499 mg/dL Very High > or = 500 mg/dL WBC (Bld) [#/Vol] 7.8 10*3/uL 4.4-11.0 [facility] Work Phone: Blood erythrocytes count (nu mber/volume)on 03-23-2022 RBC (Bld) [#/Vol] 4.74 10*6/uL 4.2-5.4 [facility] Work Phone: Blood hemoglobin measurement (mass/volume)on 03-23-2022 Hemoglobin (Bld) [Mass/Vol] 13.9 g/dL 12.0-15.0 [facility] Work Phone: Blood lymphocytes/100 leukoc yteson 03-23-2022 Lymphocytes/100 WBC (Bld) 29.7 % 19-41 [facility] Work Phone: Blood monocytes/100 leukocyt eson 03-23-2022 Monocytes/100 WBC (Bld) 7.4 % 0-10 [facility] Work Phone: Blood platelet mean volumeon 03-23-2022 Platelet mean volume (Bld) [Entitic vol] 11.6 fL 6.2-12.0 [facility] Work Phone: Determination of erythrocyte mean corpuscular volume (MCV)on 03-23-2022 MCV (RBC) [Entitic vol] 91.4 fL 81-99 [facility] Work Phone: Hematocrit Auto (Bld) [Volum e fraction]on 03-23-2022 Hematocrit (Bld) [Volume fraction] 43.3 % 37-47 [facility] Work Phone: Laboratory - Chemistry and C hemistry - challengeon 03-23-2022 ALP [Catalytic activity/Vol] 121 U/L 45-117 [facility] Work Phone: ALT [Catalytic activity/Vol] 28 U/L 13-56 [facility] Work Phone: CO2 [Moles/Vol] 26.0 mmol/L 21.0-32.0 [facility] Work Phone: Free T4 [Mass/Vol] 1.03 ng/dL 0.76-1.46 [facility] Work Phone: Globulin (S) [Mass/Vol] 3.2 g/dL 2.2-4.2 [facility] Work Phone: Urea nitrogen/Creatinine [Mass ratio] 16.3 mg/mg 10-20 [facility] Work Phone: Laboratory - Hematology and Cell countson 03-23-2022 Erythrocyte distribution width (RBC) [Entitic vol] 45.7 fL 35.1-43.9 [facility] Work Phone: Erythrocyte distribution width (RBC) [Ratio] 13.4 % 11.6-14.6 [facility] Work Phone: Immature granulocytes/100 WBC (Bld) 0.300 % 0.0-0.9 [facility] Work Phone: Comment on above: IG% - Immature Granu locytes (promyelocytes, myelocytes and metamyelocytes) > 1% indicates that a LEFT SHIFT is Present. MCH (RBC) [Entitic mass] 29.3 pg 27.0-32.0 [facility] Work Phone: Nucleated RBC/100 WBC (Bld) [Ratio] 0 % 0-5 [facility] Work Phone: MCHC Auto (RBC) [Mass/Vol]on 03-23-2022 MCHC (RBC) [Mass/Vol] 32.1 g/dL 32-36 [facility] Work Phone: No Panel Informationon 03-23 Estimated GFR (MDRD) Amer 104 mL/min >60 [facility] Work Phone: Comment on above: GFR Calc Estimated GFR (MDRD) Non-Af Amer 86 mL/min >60 [facility] Work Phone: Comment on above: Non- GFR Calc Free Triiodothyronine (T3) pg/dL 2.4 pg/mL 2.18-3.98 [facility] Work Phone: Thyroid Stimulating Hormone (TSH) 2.84 uIU/mL 0.358-3.74 [facility] Work Phone: Vitamin D 25-Hydroxy 49.9 ng/mL [facility] Work Phone: Comment on above: Vitamin D 25(OH) Sta tus Range Deficiency <20 ng/mL (50nmol/L) Insufficiency 20 - 30 ng/mL (50 - 75 nmol/L) Sufficiency 30 - 100 ng/mL (75 - 250 nmol/L) Toxicity >100 ng/mL (>250 nmol/L) Platelets bldon 03-23-2022 Platelets (Bld) [#/Vol] 343 10*3/uL 150-450 [facility] Work Phone: Serum or plasma albumin kylah urement (mass/volume)on 03-23-2022 Albumin [Mass/Vol] 3.9 g/dL 3.2-5.0 [facility] Work Phone: Serum or plasma albumin/glob ulin mass ratioon 03-23-2022 Albumin/Globulin [Mass ratio] 1.2 {ratio} 0.9-2.4 [facility] Work Phone: Serum or plasma calcium kylah urement (mass/volume)on 03-23-2022 Calcium [Mass/Vol] 9.2 mg/dL 8.5-10.1 [facility] Work Phone: Serum or plasma cholesterol in HDL measurement (mass/volume)on 03-23-2022 Cholesterol in HDL [Mass/Vol] 51 mg/dL >40 [facility] Work Phone: Comment on above: The drugs N-Acetylcy steine and Metamizole may falsely depress this assay. Reference Range HDL <40 mg/dL Low HDL Cholesterol HDL >or= 60 mg/dL High HDL Cholesterol Serum or plasma cholesterol in VLDL measurement (mass/volume)on 03-23-2022 Cholesterol in VLDL [Mass/Vol] 18 mg/dL 5-40 [facility] Work Phone: Serum or plasma creatinine m easurement (mass/volume)on 03-23-2022 Creatinine [Mass/Vol] 0.74 mg/dL 0.55-1.02 [facility] Work Phone: Comment on above: The validity of the calculated GFR & GFRAA in patients over 70 years has not been determined. Clinical correlation is essential. Serum or plasma low density lipoprotein (LDL) cholesterol measurement (mass/volume)on 03-23-2022 Cholesterol in LDL [Mass/Vol] 119 mg/dL 0-130 [facility] Work Phone: Serum or plasma urea nitroge n measurement (mass/volume)on 03-23-2022 Urea nitrogen [Mass/Vol] 12 mg/dL 7-18 [facility] Work Phone: Thin prep Papanicolaou smear with manual screeningon 03-23-2022 Thin prep Papanicolaou smear with manual screening 19 U/L 15-37 [facility] Work Phone: Thin prep Papanicolaou smear with manual screening 6 5-15 [facility] Work Phone: CNOVon 12-27-2021 CNOV Office Visit (UCWSTR ) -- FOZIA BREEN ([id number]) 1960 F Date Time Provider Department 12/27/21 8:30 AM [facility] During your visit today, we [...] Discussed expected course of illness Tamara Graff APRN.FEEDER OPERATOR [employer] Beginning Home Isolation Isolation is used to [...] to your local emergency facility: Notify the flight control tower operator that you are seeking care for [...] Fever- Fe (more content not included)... Normal [facility] Influenza virus A and B RNA and SARS-CoV-2 (COVID-19) N gene panel ANGI+probe (Resp)on 12-27-2021 FLUAV RNA ANGI+probe Ql (Unsp spec) Negative Normal Negative for Influenza A by RT-PCR [facility] Comment on above: Order Comment: Speci men Type: SWAB OF INTERNAL NOSE Ordering Facility: [facility] Address: [address] [place] [address] Performed By: #### 9 5422-2 #### [facility] CLIA [id number] [address] [place] [address] [place] FLUBV RNA ANGI+probe Ql (Unsp spec) Negative Normal Negative for Influenza B by RT-PCR [facility] Comment on above: Order Comment: Speci men Type: SWAB OF INTERNAL NOSE Ordering Facility: [facility] Address: [address] [place] [address] Performed By: #### 9 5422-2 #### [facility] CLIA [id number] [address] [place] [address] [place] SARS-CoV-2 (COVID-19) RNA ANGI+probe Ql (Resp) SARS-CoV-2 (Agent of COVID-19) Detected by RT-PCR or equivalent method. Abnormal Not Detected [facility] Comment on above: Order Comment: Speci men Type: SWAB OF INTERNAL NOSE Ordering Facility: [facility] Address: [address] [place] [address] Result Comment: grant s [id number] ([employer]ART[employer])_EUA This test was developed and its performance characteristics determined by [facility]'s [facility]ology [facility] [place]. This test has been authorized by FDA under an Emergency Use Authorization (EUA). This test has been validated in accordance with the FDA's Guidance Document Policy for Diagnostics Testing in Laboratories Certified to Perform High Complexity Testing under CLIA prior to Emergency use Authorization for Coronavirus Disease 2019 during the Public Health Emergency issued on July 07, 2019. Test performed by [facility] [place], [address] [place] [address]. Performed By: #### 9 5422-2 #### [facility] CLIA [id number] [address] [place], [place] [address] [place] [address] [place] Vital Signs Date Time Vital Sign Value Performing Clinician Facility 11-07-2024 08:33-0400 Body height 154.[address] Chasity Rubi DO Work Phone: [facility] 11-07-2024 08:33-0400 Body mass index (BMI) [Ratio] 35.6 kg/m2 Dr. Chasity Rubi DO Work Phone: [facility] 11-07-2024 08:33-0400 Body temperature 97 [degF] Dr. Chasity Rubi DO Work Phone: [facility] 11-07-2024 08:33-0400 Body weight 85.[address] Chasity Rubi DO Work Phone: [facility] 11-07-2024 08:33-0400 Diastolic blood pressure 87 mm[Hg] Dr. Chasity Rubi DO Work Phone: [facility] 11-07-2024 08:33-0400 Heart rate 104 /min Dr. Chasity Rubi DO Work Phone: [facility] 11-07-2024 08:33-0400 Respiratory rate 18 /min Dr. Chasity Rubi DO Work Phone: [facility] 11-07-2024 08:33-0400 SaO2% (BldA) [Mass fraction] 95 % Dr. Chasity Rubi DO Work Phone: [facility] 11-07-2024 08:33-0400 Systolic blood pressure 137 mm[Hg] Dr. Chasity Rubi DO Work Phone: [facility] 10-09-2024 09:51-0400 Diastolic blood pressure 93 mm[Hg] Lala Hester CNP Work Phone: [facility] 10-09-2024 09:51-0400 Heart rate 87 /min Lala Janet BAKER HEAD - [employer]ED[employer]PER[employer] Work Phone: [facility] 10-09-2024 09:51-0400 Systolic blood pressure 140 mm[Hg] Lala Janet BAKER HEAD - FEEDER [employer] Work Phone: [facility] 10-09-2024 09:49-0400 Body height 154.9 cm Lala Janet BAKER HEAD - FE[employer]ER [employer] Work Phone: [facility] 10-09-2024 09:49-0400 Body mass index (BMI) [Ratio] 34.58 kg/m2 Lala Gonzales BAKER HEAD - FEEDER OPERATOR [employer] Work Phone: [facility] 10-09-2024 09:49-0400 Body weight 83.01 kg Lala Janet BAKER HEAD - FEEDER OPERATOR [employer] Work Phone: [facility] 09-25-2024 07:23-0400 Body temperature 97.11 [degF] Lee Ann Perez MD Work Phone: [facility] 09-25-2024 07:23-0400 Diastolic blood pressure 90 mm[Hg] Lee Ann Perez MD Work Phone: [facility] 09-25-2024 07:23-0400 Heart rate 94 /min Lee Ann Perez MD Work Phone: [facility] 09-25-2024 07:23-0400 Respiratory rate 16 /min Lee Ann Perez MD Work Phone: [facility] 09-25-2024 07:23-0400 SaO2% (BldA) [Mass fraction] 96 % Lee Ann Perez MD Work Phone: [facility] 09-25-2024 07:23-0400 Systolic blood pressure 142 mm[Hg] Lee Ann Perez MD Work Phone: [facility] 09-25-2024 05:14-0400 Body mass index (BMI) [Ratio] 34.54 kg/m2 Lee Ann Perez MD Work Phone: [facility] 09-25-2024 05:14-0400 Body weight 82.92 kg Lee Ann Perez MD Work Phone: [facility] 08-30-2024 11:32-0400 Body height 154.[address] Chasity Rubi DO Work Phone: [facility] 08-30-2024 11:32-0400 Body weight 80.[address] Chasity Rubi DO Work Phone: [facility] 08-30-2024 11:32-0400 Heart rate 94 /min Dr. Chasity Rubi DO Work Phone: [facility] 08-30-2024 11:32-0400 SaO2% (BldA) [Mass fraction] 95 % Dr. Chasity Rubi DO Work Phone: [facility] 08-28-2024 10:35-0400 Body height 154.9 cm Lee Ann Perez MD Work Phone: [facility] 08-28-2024 10:35-0400 Body mass index (BMI) [Ratio] 33.63 kg/m2 Lee Ann Perez MD Work Phone: [facility] 08-28-2024 10:35-0400 Body weight 80.74 kg Lee Ann Perez MD Work Phone: [facility] 08-28-2024 10:35-0400 Diastolic blood pressure 90 mm[Hg] Lee Ann Perez MD Work Phone: [facility] 08-28-2024 10:35-0400 Heart rate 98 /min Lee Ann Perez MD Work Phone: [facility] 08-28-2024 10:35-0400 Systolic blood pressure 136 mm[Hg] Lee Ann Perez MD Work Phone: [facility] 08-17-2024 07:43-0400 Body mass index (BMI) [Ratio] 33.6 kg/m2 Dr. Chasity Rubi DO Work Phone: [facility] 08-17-2024 07:43-0400 Body temperature 97.1 [degF] Dr. Chasity Rubi DO Work Phone: [facility] 08-17-2024 07:43-0400 Body weight 80.[address] Chasity Rubi DO Work Phone: [facility] 08-17-2024 07:43-0400 Diastolic blood pressure 73 mm[Hg] Dr. Chasity Rubi DO Work Phone: [facility] 08-17-2024 07:43-0400 Heart rate 83 /min Dr. Chasity Rubi DO Work Phone: [facility] 08-17-2024 07:43-0400 Respiratory rate 18 /min Dr. Chasity Rubi DO Work Phone: [facility] 08-17-2024 07:43-0400 SaO2% (BldA) [Mass fraction] 96 % Dr. Chasity Rubi DO Work Phone: [facility] 08-17-2024 07:43-0400 Systolic blood pressure 130 mm[Hg] Dr. Chasity Rubi DO Work Phone: [facility] 07-30-2024 09:11-0400 Body height 154.[address] Chasity Rubi DO Work Phone: [facility] 07-30-2024 09:11-0400 Body mass index (BMI) [Ratio] 33.7 kg/m2 Dr. Chasity Rubi DO Work Phone: [facility] 07-30-2024 09:11-0400 Body temperature 97.5 [degF] Dr. Chasity Rubi DO Work Phone: [facility] 07-30-2024 09:11-0400 Body weight 80.[address] Chasity Rubi DO Work Phone: [facility] 07-30-2024 09:11-0400 Diastolic blood pressure 77 mm[Hg] Dr. Chasity Rubi DO Work Phone: [facility] 07-30-2024 09:11-0400 Heart rate 100 /min Dr. Chasity Rubi DO Work Phone: [facility] 07-30-2024 09:11-0400 Respiratory rate 16 /min Dr. Chasity Rubi DO Work Phone: [facility] 07-30-2024 09:11-0400 SaO2% (BldA) [Mass fraction] 97 % Dr. Chasity Rubi DO Work Phone: [facility] 07-30-2024 09:11-0400 Systolic blood pressure 126 mm[Hg] Dr. Chasity Rubi DO Work Phone: [facility] 12-27-2021 08:52-0400 Body temperature 101.8 [degF] Tamara Praisler-Wood BAKER HEAD.FEEDER OPERATOR [employer] Work Phone: [facility] 12-27-2021 08:52-0400 Body weight 77.66 kg Tamara Praisler-Wood BAKER HEAD.FEEDER OPERATOR [employer] Work Phone: [facility] 12-27-2021 08:52-0400 Diastolic blood pressure 82 mm[Hg] Tamara Praisler-Wood BAKER HEAD.FEEDER OPERATOR [employer] Work Phone: [facility] 12-27-2021 08:52-0400 Heart rate 127 /min Tamara Praisler-Wood BAKER HEAD.FEEDER OPERATOR [employer] Work Phone: [facility] 12-27-2021 08:52-0400 Respiratory rate 20 /min Tamara Praisler-Wood BAKER HEAD.FEEDER OPERATOR [employer] Work Phone: [facility] 12-27-2021 08:52-0400 SaO2% (BldA) [Mass fraction] 95 % Tamara Praisler-Wood BAKER HEAD.FEEDER OPERATOR [employer] Work Phone: [facility] 12-27-2021 08:52-0400 Systolic blood pressure 130 mm[Hg] Tamara Praisler-Wood BAKER HEAD.FEEDER OPERATOR [employer]IC Work Phone: [facility] Encounters Encounter Date Encounter Type Care Provider Facility Start: 04-03-2025 ambulatory [facility] Facility: [facility] Start: 04-02-2025 ambulatory [facility] Facility: [facility] Start: 03-14-2025 End: 03-15-2025 Telephone encounter Lala Gonzales ALICE Hester CNP Work Phone: [facility] Central Scheduling Comment on above: Other (Central sched uling ) Start: 03-14-2025 ambulatory [facility] Facility :[facility] Start: 02-06-[address] Emilie Wheatley MD [facility] Work Phone: Start: 02-06-2025 End: 02-06-2025 ambulatory [facility] Facility:[facility] Start: 01-30-2025 End: 01-30-[address] Emilie Wheatley MD Work Phone: [facility] Start: 01-30-2025 End: 01-30-[address] Emilie Wheatley MD [facility] Work Phone: Start: 01-30-2025 End: 01-30-2025 ambulatory [facility] Facility:[facility] Start: 01-15-2025 End: 01-15-[address] Emilie Wheatley MD Work Phone: [facility] Start: 01-15-2025 End: 01-15-[address] Maria A Carranza MD [facility] Work Phone: Start: 01-15-2025 End: 01-15-2025 ambulatory [facility] Facility:[facility] Start: 11-27-2024 End: 11-27-[address] Emilie Wheatley MD Work Phone: [facility] Start: 11-27-2024 End: 11-27-[address] Maria A Carranza MD [facility] Work Phone: Start: 11-27-2024 End: 11-27-2024 ambulatory Emilie Wheatley Facility:[facility] Start: 11-07-2024 End: 11-07-2024 Patient encounter procedure Angeline Lew [employer] [facility] Work Phone: Start: 11-07-2024 End: 11-07-[address] Chasity Rubi DO Work Phone: -[facility] Start: 10-11-2024 End: 10-12-2024 Telephone encounter Lee Ann Perez MD Work Phone: [facility] Comment on above: Procedure Start: 10-09-2024 End: 10-09-2024 Postop follow up visit related to original px Lala Gonzales APRN - FEEDER OPER[employer] Work Phone: [facility] Comment on above: Adenocarcinoma (HCC) (Primary Dx); Pulmonary nodule Start: 10-09-2024 End: 10-09-2024 ambulatory LALA GONZALES [facility] Start: 09-20-2024 End: 09-20-2024 Evaluation and management of inpatient Mariia Talavera APRN - MECHANICAL DESIGN DRAFTER Work Phone: [facility] MAIN OR Start: 09-20-2024 End: 09-25-2024 Evaluation and management of inpatient Lee Ann Perez MD Work Phone: [facility] Surgical Progressive Care Unit PCU H6 Comment on above: Lung nodule (Primary Dx); Solitary pulmonary nodule Start: 09-13-2024 End: 09-13-2024 ambulatory LEE ANN PEREZ [facility] Start: 09-02-2024 End: 09-02-2024 Admission to same day surgery center Benjamin Moffett APRN - FEEDER OPERATOR AUTOMATIC Work Phone: [facility] Thoracic Surgery Kacie Curtis Comment on above: Lung nodule (Primary Dx) Start: 09-02-2024 End: 09-02-2024 ambulatory Benjamin Moffett APRN - FEEDER OPERATOR AUTOMATIC Work Phone: [facility] Thoracic Surgery - Ever Start: 08-31-2024 ambulatory Shivam Pryor Facility:[facility] Start: 08-31-2024 Non-patient / Non-visit Dr. Shivam cervantes DO -[facility] Start: 08-31-2024 End: 08-31-2024 Patient encounter procedure Angeline Lew PLUMBER MAINTENANCE-C -Pulmonary Services/Neurology Work Phone: Start: 08-30-2024 End: 09-02-2024 Telephone encounter Lee Ann Perez MD Work Phone: [facility] Thoracic [facility] Comment on above: Surgery Scheduling Start: 08-30-2024 End: 08-31-[address] Chasity Rubi DO Work Phone: [facility] Work Phone: Start: 08-30-2024 End: 08-30-2024 Patient encounter procedure Angeline Lew NP-C -Pulmonary Services/Neurology Work Phone: Start: 08-30-2024 End: 08-30-2024 ambulatory Angeline Lew NP Facility:[facility] Start: 08-28-2024 End: 08-28-2024 Office outpatient new 60 minutes Lee Ann Perez MD Work Phone: [facility] Thor[facility] Comment on above: Pulmonary nodule (Pr imary Dx); Rheumatoid arthritis, involving unspecified site, unspecified whether rheumatoid factor present (HCC) Start: 08-28-2024 End: 08-28-[address] [facility] Start: 08-28-2024 ambulatory Maria A Tere Facility :[facility] Start: 08-17-2024 End: 08-17-2024 Patient encounter procedure Angeline Lew PLUMBER MAINTENANCE-C -[facility] Work Phone: Start: 08-17-2024 End: 08-17-2024 ambulatory Emilie Wheatley Facility:[facility] Start: 08-07-2024 End: 08-07-[address] Chasity Rubi DO Work Phone: [facility] Work Phone: Start: 08-07-2024 End: 08-07-2024 Patient encounter procedure Angeline BONE -[place] [facility] Start: 08-07-2024 End: 08-07-2024 ambulatory [facility] Facility:[facility] Start: 07-30-2024 End: 07-30-2024 Patient encounter procedure Angeline BONE -[facility] Work Phone: Start: 07-30-2024 End: 07-30-2024 ambulatory [facility] Facility:[facility] Start: 07-25-2024 End: 07-25-[address] Chasity Rubi DO Work Phone: [facility] Work Phone: Start: 07-25-2024 End: 07-25-[address] Chasity Rubi DO -Outpatient Breast Imaging Work Phone: Start: 07-25-2024 End: 07-25-2024 ambulatory [facility] Facility:[facility] Start: 07-18-2024 End: 07-18-[address] Chasity Rubi DO Work Phone: [facility] Work Phone: Start: 07-18-2024 End: 07-18-[address] Chasity Rubi DO -Cat Scan, [facility] Work Phone: Start: 07-18-2024 End: 07-18-2024 ambulatory [facility] Facility:[facility] Start: 06-06-2024 End: 06-06-[address] Maria A Carranza MD -Laboratory, [place] Work Phone: Start: 06-06-2024 End: 06-06-20[facility] Start: 04-10-2024 End: 04-10-2024 [facility] Start: 04-10-2024 End: 04-10-[address] Maria A Carranza MD -Physical Therapy Work Phone: Start: 04-03-2024 End: 04-03-[address] Maria A Carranza MD -Laboratory, [place] Work Phone: Start: 04-03-2024 End: 04-03-2024 ambulatory Chasity Rubi Facility:[facility] Start: 08-05-2023 End: 08-05-2023 ambulatory [facility] Work Phone: Start: 08-05-2023 End: 08-05-2023 Patient encounter procedure [facility]-Laboratory, [place] Work Phone: Start: 04-20-2023 End: 04-20-2023 ambulatory [facility] Work Phone: Start: 04-20-2023 End: 04-20-2023 Patient encounter procedure [facility]-Laboratory, [place] Start: 03-30-2022 End: 03-30-2022 ambulatory [facility] Work Phone: Start: 03-30-2022 End: 03-30-2022 Patient encounter procedure [facility]-Cat Scan, [facility] Start: 03-23-2022 End: 03-23-2022 ambulatory [facility] Work Phone: Start: 03-23-2022 End: 03-23-2022 Patient encounter procedure [facility]-Laboratory, Sujey Jordan [facility] Start: 12-27-2021 End: 12-27-2021 Patient encounter procedure Taamra Graff APRN.[facility] Work Phone: [facility] Comment on above: Suspected COVID-19 v irus [...] limit of quantitation is 0.1ng/mLThyroglobulin measured by [employer] ImmunometricAssayPerformed at: CB - [facility] [id number] [place], [place] [id number] Director: Haris Sheridan PhD, Phone: [phone] Start: 02-06-[address] Ivonne Wheatley MD Work Phone: Comment on above: Thyroglobulin Antibody measured by [employer] an CoulterMethodologyIt should be noted that the presence of thyroglobulinantibodies may not be pathogenic nor diagnostic, especiallyat very low levels. The assay diesel roller operator has found thatfour percent of individuals without [...] 09-20-2024 ANESTHESIA PERIPHERAL IV PLACEMENT Mariia Talavera BAKER HEAD - MECHANICAL DESIGN DRAFTER Work Phone: Start: 09-20-2024 ANESTHESIA ARTERIAL LINE PLACEMENT Shon Mendoza BAKER HEAD - MECHANICAL DESIGN DRAFTER Work Phone: Start: 09-20-2024 CT AN ELECTIVE ENDOTRACHEAL AIRWAY Mariia Talavera BAKER HEAD - MECHANICAL DESIGN DRAFTER Work Phone: Start: 09-20-2024 End: 09-20-2024 Thoracoscopy w/dx wedge resexn anato lung resexn Lee Ann Perez MD Work Phone: Start: 09-20-2024 End: 09-20-2024 Peripheral block anesthesia Jani manuel BAKER HEAD - MECHANICAL DESIGN DRAFTER Work Phone: Start: 09-20-2024 Antibody screen LEE ANN PEREZ Comment on above: Performed By: #### [id number] ####Medical Di royal: MAL ARVIZU ([id number])[facility] ([address] Start: 09-20-2024 ABO and Rh group [Type] in Blood by Confirmatory method Sofi Aguilar BAKER HEAD - FEEDER OPERATOR AUTOMATIC Work Phone: Start: 09-20-2024 Blood count hematocrit Sofi Aguilar APRN - FEEDER OPERATOR AUTOMATIC Work Phone: Start: 09-20-2024 Blood typing serologic abo Sofi Guido huyen BAKER HEAD - FEEDER OPERATOR AUTOMATIC Work Phone: Start: 09-20-2024 Ecg routine ecg w/least 12 lds trcg only w/o i&r Sofi Aguilar BAKER HEAD - FEEDER OPERATOR AUTOMATIC Work Phone: Start: 08-07-2024 Positron emission tomography [...] for Adults (1 - 1-dose 75+ series) [facility] Start: 07-18-2025 Screening for malignant neoplasm of breast Mammogram [facility] Start: 04-10-2025 End: 10-09-2025 CT Chest WO contrast CT chest wo IV contrast Imaging Routine Adenocarcinoma (HCC) Expected: 04/10/2025, Expires: 10/09/2025 [facility] Work Phone: Comment on above: Expected: 04/10/2025 , Expires: 10/09/2025 Start: 02-06-2025 Procedure [place] [facility] Start: 01-07-2025 COVID-19 Vaccine ( season) COVID-19 Vaccine ( season) [facility] Start: 01-07-2025 Influenza vaccination [facility] Start: 10-09-2024 End: 10-09-2024 Patient encounter procedure 10/09/2024 10:00 AM EDT Office Visit [facility] Cardiovascular Thoracic Surgery - [address] [place] [phone] Lala Gonzales, BAKER HEAD - FEEDER OPERATOR AUTOMATIC [address] [phone] [facility] Thoracic Surgery - [place] Start: 09-20-2024 End: 09-20-2024 Admission to same day surgery center 09/20/2024 12:00 PM EDT - 09/20/2024 4:00 PM EDT Surgery [facility] MAIN OR [address] [place] [address] Lee Ann Perez MD [address] [address] THORACOSCOPY WITH WEDGE RESECTION LEFT LOWER LOBE [16369 (CPT )] [facility] MAIN OR Comment on above: THORACOSCOPY WITH WE DGE RESECTION LEFT LOWER LOBE [91486 (CPT )] Start: 09-20-2024 End: 09-20-2024 Rmvl lung other than pneumonectomy 1 lobe lobect LOBECTOMY, LUNG, OPEN Solitary pulmonary nodule 09/20/2024 12:00 PM EDT [facility] Operating [facility] Start: 09-20-2024 Subsequent hospital visit by physician 09/20/2024 12:00 PM EDT Hospital Encounter [facility] MA[facility] OR [address] [place] [phone] Lee Ann Perez MD [address] [address] [facility] MA[facility] OR Start: 09-20-2024 End: 09-20-2024 Thoracoscopy w/dx wedge resexn anato lung resexn THORACOSCOPY WITH WEDGE RESECTION Solitary pulmonary nodule 09/20/2024 12:00 PM EDT [facility] Operating [facility] Start: 09-13-2024 End: 09-13-2024 Admission to [facility] 09/13/2024 10:30 AM EDT Pre-Admission Testing [facility] Pre-Admit Testing [address] [place] [address] Lee Ann Perez MD [address] [phone] [facility] Pre-Admit Testing Start: 08-17-2024 Patient referral [facility] Work Phone: Start: 01-08-2024 COVID-19 Vaccine ( season) COVID-19 Vaccine ( season) [facility] Start: 2022 RSV Immunization for Adults (1 - Risk 60-74 years 1-dose series) RSV Immunization for Adults (1 - Risk 60-74 years 1-dose series) [facility] Start: 01-07-2022 Influenza vaccination INFLUENZA (#1) [facility] Start: 12-27-2021 End: 01-10-2022 Influenza virus A and B RNA and SARS-CoV-2 (COVID-19) N gene panel - Respiratory specimen by ANGI with probe detection COVID WITH FLUA+B, ROUTINE Microbiology Routine Suspected COVID-19 virus infection Expected: 12/27/2021, Expires: 01/10/2022 [facility] Work Phone: Comment on above: Expected: 12/27/2021 , Expires: 01/10/2022 Start: 2012 Pneumococcal Vaccine : 50+ Years (1 of 1 - PCV) Pneumococcal Vaccine: 50+ Years (1 of 1 - PCV) [facility] Start: 2012 Screening for malignant neoplasm of lung Lung Cancer Screening [facility] Start: 2012 SHINGRIX VACCINE (1 of 2) SHINGRIX VACCINE (1 of 2) [facility] Start: 2012 Zoster Vaccines (1 o f 2) Zoster Vaccines (1 of 2) [facility] Start: 12-24-2007 COLOGUARD (FIT-DNA) COLOGUARD (FIT-D NA) [facility] Start: 12-24-2007 Colonoscopy COLONOSCOPY [facility] Start: 12-24-2007 COLORECTAL CANCER SCREENING COLORECTAL CANCER SCREENING [facility] Start: 12-24-[address] COLONOGRAPHY [facility] Start: 12-24-2007 DIABETES SCREEN DIABETES SCREEN [facility] Start: 12-24-2007 FECAL OCCULT BLOOD FECAL OCCULT BLOO D [facility] Start: 12-24-2007 LIPID SCREEN LIPID SCREEN [facility] Start: 12-24-2007 SIGMOIDOSCOPY SIGMOIDOSCOPY [facility] Start: 2002 Mammography MAMMOGRAM [facility] Start: 2002 Screening for malignant neoplasm of breast Mammogram [facility] Start: 1992 HPV TESTING HPV TESTING [facility] Start: 1992 Screening for malignant neoplasm of cervix [facility] Start: 12-24-1983 PAP TESTING PAP TESTING [facility] Start: 12-24-1983 Screening for malignant neoplasm of cervix Pap Smear [facility] Start: 1981 DTaP/Tdap/Td Vaccine s (1 - Tdap) DTaP/Tdap/Td Vaccines (1 - Tdap) [facility] Start: 1981 Pneumococcal Vaccine : 50+ Years (1 of 2 - PCV) Pneumococcal Vaccine: 50+ Years (1 of 2 - PCV) [facility] Start: 1981 Urine microalbumin profile DTAP,TDAP,TD (1 - Tdap) [facility] Start: 1980 Diabetes mellitus screening Diabetes Screening [facility] Start: 1980 HEPATITIS C SCREENING HEPATITIS C [facility] Start: 1980 Hepatitis C screening Hepatitis C [facility] Start: 1980 HIV SCREENING HIV SCREENING [facility] Start: 1974 Adult depression screening assessment DEPRESSION SCREENING [facility] Start: 1968 PNEUMOCOCCAL (1 - PCV) PNEUMOCOCCAL (1 - PCV) [facility] Start: 12-24-1963 MMR Vaccines (1 of 1 - Standard series) MMR Vaccines (1 of 1 - Standard series) [facility] Start: 06-25-1963 COVID-19 VACCINE (#1) COVID-19 VACCI NE (#1) [facility] Start: 1962 HEPATITIS B (1 of 3 - 3-dose series) HEPATITIS B (1 of 3 - 3-dose series) [facility] Start: 1962 HIV screening HIV Screening [facility] Start: 1962 Lipid panel Lipid Panel [facility] Start: 1962 Screening for malignant neoplasm of colon [facility] CT Chest WO contrast [facility] Patient referral [facility] Work Phone: Positron emission tomography with computed tomography [facility] Tissue exam [facility] Work Phone: Comment on above: Release Upon Ayana sorto for 1 Occurrences starting 09/20/2024, 1 completed Payers Date Payer Category Payer Self-pay [id number] 2024 Self-pay [id number] 2021 Private Health Insurance [employer] Mary LOZA OAP [id number] 2021-Present [phone] [address] [place] [address] Open Access [id number] 2020 Commercial Managed C are - HMO [employer] [id number] 2020 Private Health Insurance [id number] Private Health Insurance C[employer] [id number] Unknown [id number] Unknown [employer] [facility] [id number] Unknown [id number] 2.840.1.691693.3.579. 2.462 Unknown [id number]. 2.462 Unknown [id number] 2.16.840.1.944090.3.579. 2.462 Unknown [id number] 2.16.840.1.889288.3.579. 2.462 Unknown [id number] 2.16.840.1.390924.3.579. 2.462 Unknown [id number] 2.16840.1.066686.3.579. 2.462 Unknown [id number] 2.16.840.1.348968.3.579. 2.462 Unknown [id number] 2.840.1.289773.3.579. 2.462 Unknown [id number] 2.840.1.412975.3.579. 2.462 Unknown [id number] 2.840.1.624981.3.579. 2.462 Unknown [id number] 2.840.1.110521.3.579. 2.462 Unknown [id number] 2.840.1.530668.3.579. 2.462 Unknown [id number] 2.840.1.975762.3.579. 2.462 Unknown [id number] 2.840.1.679677.3.579. 2.462 Unknown [id number] 2.840.1.318856.3.579. 2.462 Unknown [id number] 2.16840.1.443722.3.579. 2.462 Unknown [id number] 2.16840.1.470701.3.579. 2.462 Unknown [id number] 2.16840.1.218083.3.579. 2.462 Unknown [id number] 2.840.1.035611.3.579. 2.462 Unknown [id number] 2.16840.1.179654.3.579. 2.462 Unknown [id number] 2.16840.1.391479.3.579. 2.462 Social History Date Type Detail Facility Start: 12-27-2021 End: 07-30-2024 Tobacco smoking status NHIS Smokes tobacco daily [facility] Start: 05-09-1982 End: 09-01-2024 History of tobacco use Cigarette Smoker [facility] Start: 12-27-2021 End: 09-13-2024 Tobacco use and exposure Smokeless tobacco non-user [facility] Start: 1960 Sex Assigned At Not on file C [facility] Start: 12-17-2021 End: 12-27-2021 Exposure to SARS-CoV-2 (event) Not sure [facility] Start: 1960 Sex Assigned At Female W [facility] Tobacco smoking stat us OKIS Unknown if ever smoked [facility] Work Phone: Start: 07-27-2024 End: 08-17-2024 Sex Female (finding) [facility] Start: 08-28-2024 End: 09-20-2024 Gender Identity Identifies as female gender (finding) [facility] Start: 08-28-2024 End: 09-20-2024 Cigarettes smoked current (pack per day) - Reported 1 [facility] Start: 08-28-2024 End: 09-21-2024 Alcoholic beverage intake Current drinker of alcohol (finding) [facility] Start: 08-23-2024 Alcohol Comment holidays/speci al occasions only [facility] Start: 09-13-2024 End: 11-07-2024 Tobacco smoking status NHIS Ex-smoker [facility] Start: 05-09-1982 End: 09-01-2024 History of tobacco use Current smoker [facility] Clinical Notes 12-27-2021 to 03-14-2025 Telephone Encounter [...] amy pt will call back to schedule [facility] 03-14-2025 Miscellaneous Notes Formattin g of this note might be different from the original. We have been unable to reach your patient to schedule their testing. Test Name: Ct 1st Attempt: 03/12 sw pt will call back to schedule documented in this encounter [facility] 11-07-2024 Evaluation note Diagnosis Onset Date Resolution Adenocarcinoma of left lung acute November 07, 2024 9:09am Stage 1 mild chronic obstructive pulmonary disease by [employer] for acute November 07, 2024 9:09am Status post pneumonectomy acute November 07, 2024 9:09am Nicotine abuse chronic November 07, 2024 9:09am [facility] Work Phone: 1(263) 423-128306-05-2025 Telephone encounter Note* Telephone Encounter - Yasminelorin Moncada - 10/11/2024 5:32 PM EDT Name of caller: Lee Ann Contact phone number: [phone] Relationship to Patient: Employer Provider: Dr Perez Practice: [facility] S[facility] Chief Complaint/Reason for Call: Company needs verification that patient had 09/20/24 procedure -- they faxed over a surgery confirmation form and are asking for it to be faxed [phone] -- not received. Best time of day caller can be reached: AM Patient advised that office/PCP has 24-48 business hours to return their call: No [id number] Miscellaneous Notes* Telephone Encounter - Yasmine Moncada - 10/11/2024 5:32 PM EDT Name of caller: Lee Ann Contact phone number: [phone] Relationship to Patient: Employer Provider: Dr Perez Practice: [facility] CT Surg Chief Complaint/Reason for Call: Company needs verification that patient had 09/20/24 procedure -- they faxed over a surgery confirmation form and are asking for it to be faxed [phone] -- not received. Best time of day caller can be reached: AM Patient advised that office/PCP has 24-48 business hours to return their call: No documented in this [facility]06-03-2025 History of Present illness Narrative* Lalayancy Gonzales, BAKER HEAD - FEEDER OPERATOR AUTOMATIC - 10/09/2024 10:00 AM EDT Images from the original note were not included. [facility]: [facility] [place] [address] [facility] [address] [facility] [address] Dept: [phone] Dept Loc: [phone] Visit type: Established patient - in person [...] like to follow up surveillance with pulm custodial We discussed will order first [address] and then coordinate with pulm in [place] for surveillance -Reviewed current meds -Surgical Incisions: [...] with PCP -Follow up with Pulm in [place] -Plan follow up 6 month for first [...] wants to follow up with Pulm in [place] for surveillance. Agreeable for first to be [...] Real Cabrales M.D. Intraoperative consultation performed at [facility], [address] [place] [address]; CLIA: [id number]; Joint Commission: [id number]; CAP: [id number] Clinical Information Solitary pulmonary nodule - R91.1 [...] This note may have been dictated using [employer] Practice Edition 2.6 and/or [employer] Voice Recognition Feature. The document was proofread, however unrecognized voice recognition director of federal sales errors may be present. documented in this [facility]05-20-2025 NoteDischarge Summary Fozia Breen : 1960 ADMIT [...] HYDROcodone-acetaminophen 5-325 MG tablet Commonly known as: [place] Take 1 tablet by mouth every 4 hours as needed for moderate pain (4-6) for up to 5 days. Ask about: Should I take this medication? leucovorin 15 MG tablet Commonly known as: Wellcovorin methotrexate 2.5 MG tablet predniSONE 5 MG tablet Commonly known as: Deltasone Where to Get Your Medications These medications were sent to [id number] - [place], [facility] [address] [address] HYDROcodone-acetaminophen 5-325 MG tablet methocarbamol 500 MG tablet DIET: No diet orders on file ACTIVITY: No restriction. COMPLEXITY OF FOLLOW UP: [] Moderate Complexity: follow up within 7-14 calendar days (597[address]) [] Severe Complexity: follow up within 7 calendar days ([address]) FOLLOW UP TESTING, PENDING RESULTS OR REFERRALS AT TRANSITIONAL CARE VISIT: [] Yes [] No PENDING STUDIES: none DISPOSITION: Home FACILITY/HOME CARE AGENCY NAME: Follow up with Lala Gonzales APRN - FEEDER OPERATOR AUTOMATIC [address] [phone] Go on 10/09/2024 Time: 10:00am, Post-op lung surgery follow up, (MARIAN with Dr. Perez) Emilie Wheatley MD [address] [facility] [address] INSTRUCTIONS TO MA/SW: Please call patient [...] minutes SIGNED: Moises Pacheco MD 10/01/2024, 10:25 [facility]05-20-2025 Note* Care Coordination - Patrick Tim RN - 09/25/2024 10:25 AM EDT Discharged with home O2. No distress noted. [id number] Note* Care Coordination - Patrick Tim RN - 09/25/2024 10:25 AM EDT Discharged with home O2. No distress noted. [id number] Miscellaneous Notes* Care Coordination - Patrick Urban [...] Discharge Planning/Barrier: 09/21/24 0750 Rapid Rounds Attendance Closing Manager Planned Discharge Disposition Other (TBD) Today we still await Administering IV medications;Clinical stability;County Judge recommendations (comment);Symptomatic control Additional Comments: WASHER REPAIRMAN pain pump, chest tubes, PT/OTpending Discharge Plan: [...] from the original note were not included. [facility] Cardiothoracic Surgery Operative Report [...] 12, 5) Surgeon: Lee Ann Perez MD Recenterer(s): NO Pacheco MD Anesthesia: General Estimated blood [...] THORACOSCOPY WITH WEDGE RESECTION LEFT LOWER LOBE 45[address] - CT THORACOSCOPY W/DX WEDGE RESEXN ANATO LUNG RESEXN LOBECTOMY, LUNG, OPEN 258[address] - CT RMVL LUNG OTHER THAN PNEUMONECTOMY 1 LOBE [...] MD 09/20/24 1527 Description: level 10 Staff: Bicycle I Assembler: Nina Arredondo RN; Jolly Arteaga RN Relief Bicycle I Assembler: Pepe Cruz RN Scrub Person: Yamile Medina [...] Moises Pacheco MD PGY5, General Surgery Pager #[phone] * Pre-Procedure Note - Jean Mcclendon RN - 09/20/2024 1:07 PM EDT Patient stable at this time. Patient denies ringing in ears, numbness or tingling. Family at bedside. * Perioperative Nursing Note - Ashlyn Riggs RN - 09/20/2024 10:28 AM EDT Pt declined Xanax at this time. documented in this [facility]05-20-2025 Plan of care note* Care Plan - Patrick Tim RN - 09/25/2024 8:51 AM EDT Home O2 eval done, patient did drop sats to [address] Perez visited patient ok for discharge. [id number] NoteRTHOMEO2[[id number]] Respiratory Therapy Home O2 Progress Note O2 [...] concentrator. Pt requires 2L O2 on exertion. [facility]05-20-2025 History of Present illness Narrative* Jeff Trejo - 09/25/2024 8:51 AM EDT RTHOMEO2[[id number]] Respiratory Therapy Home O2 Progress Note O2 [...] Ana Pacheco MD PGY5, General Surgery Pager #[phone] [1] cetirizine, 10 mg, Oral, Daily DULoxetine, [...] original note were not included. PHYSICAL THERAPY [facility] Treatment Note Name/MRN: Fozia Breen ([id number]) Date of : 1960 Age: 63 y.o. Room/Bed: H-6113/[facility] A Discharge Recommendation: Home with assist PRN [...] leak with cough. Plan CT clamp trial 4276-1023, CXR 1630. Can remove CT this pm if no PTX on CXR. Moises Pacheco MD PGY5, General Surgery Pager #[phone] * Moises Pacheco MD - 09/24/2024 9:39 [...] Ana Pacheco MD PGY5, General Surgery Pager #[phone] [1] cetirizine, 10 mg, Oral, Daily DULoxetine, [...] original note were not included. OCCUPATIONAL THERAPY [facility] Initial Evaluation Name/MRN: Fozia Breen ([id number]) Evaluation Date: 09/23/2024 Date of : 1960 Admission Date: 09/20/2024 9:54 AM Age: 63 y.o. Room/Bed: [facility]13 A Discharge Recommendation: Home with assist PRN, [...] Responsibilities: Independent Receives Help From: None Active Assignment Desk Editor: Yes Prior Level of Function Prior Level [...] of Care supervision is transferred to a [facility] Occupational Therapist. Goals and/or [...] CURETTAGE OF UTERUS EXPLORATORY LAPAROTOMY HYSTERECTOMY 1995 CT REMV LUNG, WEDGE RESECTION AND ANATOMIC LUNG RESECTION (HISTORICAL) Left 09/20/2024 * Moises Pacheco MD - 09/23/2024 9:55 AM EDT Department of General Surgery Daily Progress Note SUBJECTIVE: NAEON. Pain well controlled this morning. OOB to chair. Ambulated. Tc101ob SS output, slight AL in rigid CT [...] Ana Pacheco MD PGY5, General Surgery Pager #[phone] [1] cetirizine, 10 mg, Oral, Daily DULoxetine, [...] original note were not included. PHYSICAL THERAPY [facility] Treatment Note Name/MRN: Fozia Breen ([id number]) Date of : 1960 Age: 63 y.o. [...] Supervision Good technique, no instability Device(s) used: [employer] Ambulation Ambulation 1 Assistive device(s) used: ArtCorgizzZOZI Assist level: SBA Distance (ft): 350ft Quality [...] AM EDT * Tyra Godfrey APRN - FEEDER OPERATOR AUTOMATIC - 09/22/2024 11:42 AM EDT PAGING: The Acute Pain Service providers are available exclusively via [employer]. APS does not utilize pagers. 09/22/2024 Discharge Recommendations: [place] 1-2 tablets q8h prn for mod / severe pain Robaxin 750mg PO q8h prn for muscle spasms Stool softeners Pain Management Adjuvants: 0700 --> 0700 09/21/24 Scheduled APAP 650mg Gabapentin Lidocaine patches PRN Hydromorphone IV Methocarbamol Oxycodone [place] 8 tablets Assessment / Pain Management Plan: Recommendations made, will sign off at this time. Thank you for inviting us to participate in the care of this patient. Acute Postsurgical Chest pain Multimodal pain regimen: BLOCK: Serratus Anterior 09/20/24 Pt requested [place] post operatively 09/21/24 Does not want IV [...] at chest tube site is controlled with [place] per her request. Does not like IV [...] Pain Service providers are available exclusively via [employer]. APS does not utilize pagers. * Fatuma De Jesus - 09/22/2024 11:03 AM EDT Nutrition rescreen completed. Chart reviewed. Patient to be monitored and followed by the diet indoor plant technician. * Moises Pacheco MD - 09/22/2024 [...] Ana Pacheco MD PGY5, General Surgery Pager #[phone] [1] cetirizine, 10 mg, Oral, Daily DULoxetine, [...] Ana Pacheco MD PGY5, General Surgery Pager #[phone] [1] acetaminophen, 650 mg, Oral, q6h cetirizine, [...] original note were not included. PHYSICAL THERAPY [facility] Initial Evaluation Name/MRN: Fozia Breen ([id number]) Evaluation Date: 09/21/2024 Date of : 1960 [...] Responsibilities: Independent Receives Help From: None Active Assignment Desk Editor: Yes Prior Level of Function Prior Level of ADL Function: Independent Prior Level of Mobility: Independent; Device: None Prior Level of Transfers: Independent Objective Transfers/Mobility Sit to stand: Contact Guard Stand to sit: Contact Guard From recliner and toilet with UE support, cues for hand placement Device(s) used: [employer] Ambulation Assistive device(s) used: NezzZOZI Assist level: Contact Guard Distance (ft): 15, [...] Raw Score (No Stairs) : 15 [facility] Score: Walked 25 ft or more [...] of Care supervision is transferred to a [facility] Physical Therapist. Goals and/or [...] CURETTAGE OF UTERUS EXPLORATORY LAPAROTOMY HYSTERECTOMY 1995 CT REMV LUNG, WEDGE RESECTION AND ANATOMIC LUNG RESECTION (HISTORICAL) Left 09/20/2024 documented in this [facility]05-20-2025 Hospital Discharge instructions* Discharge Instructions* Moises Pacheco [...] -Chest pain. -Abdominal distention. documented in this [facility]05-20-2025 [facility] Daily Progress Note [...] Ana Pacheco MD PGY5, General Surgery Pager #[phone] [1] cetirizine, 10 mg, Oral, Daily DULoxetine, [...] sodium chloride, sodium chloride 0.9%[facility] [id number] Plan of care note* Care Plan - [...] My discharge needs are met Outcome: Progressing [facility] HospitalLqqoaz06-99-9847 Plan of care note* Care Plan - Patrick Tim RN - 09/24/2024 5:54 PM EDT Chest tubes removed per Dr. Aparicio. Tolerated well. [facility] [id number] Note* Care Coordination - Vale Romero RN - 09/24/2024 2:18 PM EDT Case Management Progress Note: Patient transferred to s/p L thoracotomy and LLLobectomy for NSCLS Discharge Plan: Home. Per chart review. Patient noted with 2 CT's. Plan a clamp trial this afternoon. ? O2 need at discharge, currently 2L. [facility] [id number] Note* Care Coordination - Vale Romero RN - 09/24/2024 2:18 PM EDT Case Management Progress Note: Patient transferred to H6 s/p L thoracotomy and LLLobectomy for NSCLS Discharge Plan: Home. Per chart review. Patient noted with 2 CT's. Plan a clamp trial this afternoon. ? O2 need at discharge, currently 2L. [facility] HospitalMzjsps09-61-1090 NoteCase Management Progress Note: Patient transferred to H6 s/p L thoracotomy and LLLobectomy for NSCLS Discharge Plan: Home. Per chart review. Patient noted with 2 CT's. Plan a clamp trial this afternoon. ? O2 need at discharge, currently 2L. [facility]05-19-2025 Note Department of General Surgery Daily Progress [...] Ana Pacheco MD PGY5, General Surgery Pager #[phone] [1] cetirizine, 10 mg, Oral, Daily DULoxetine, [...] ODT OR ondansetron, sodium chloride, sodium chloride 0.9%[facility] 09-23-2024 NoteOCCUPATIONAL THERAPY [facility] Initial Evaluation Name/MRN: Fozia Breen ([id number]) Evaluation Date: 09/23/2024 Date of : 1960 Admission Date: 09/20/2024 9:54 AM Age: 63 y.o. Room/Bed: [facility]/61 A Discharge Recommendation: Home with assist PRN, [...] Responsibilities: Independent Receives Help From: None Active Assignment Desk Editor: Yes Prior Level of Function Prior Level [...] Daily Activity Raw Score: 24 ADL Inpatient [facility] G-Code Modifier: CH Plan No skilled acute [...] of Care supervision is transferred to a [facility] Occupational Therapist. Goals and/or [...] CURETTAGE OF UTERUS EXPLORATORY LAPAROTOMY HYSTERECTOMY 1995 CT REMV LUNG, WEDGE RESECTION AND ANATOMIC LUNG RESECTION (HISTORICAL) Left 09/20/2024[facility]05-18-2025 Plan of care note* Care Plan [...] discharge needs are met Outcome: Progressing T [facility] HospitalUowxmw92-76-1934 [facility] Daily Progress Note SUBJECTIVE: NAEON. Pain well controlled this morning. OOB to chair. Ambulated. [id number] SS output, slight AL in rigid CT [...] Ana Pacheco MD PGY5, General Surgery Pager #[phone] [1] cetirizine, 10 mg, Oral, Daily DULoxetine, [...] ODT OR ondansetron, sodium chloride, sodium chloride 0.9%[facility] 09-22-2024 NoteDepartment of General Surgery Daily [...] Ana Pacheco MD PGY5, General Surgery Pager #[phone] [1] cetirizine, 10 mg, Oral, Daily DULoxetine, [...] ODT OR ondansetron, sodium chloride, sodium chloride 0.9%[facility]05-16-2025 NoteDepartment of General Surgery Daily Progress [...] Ana Pacheco MD PGY5, General Surgery Pager #[phone] [1] acetaminophen, 650 mg, Oral, q6h cetirizine, [...] ODT OR ondansetron, sodium chloride, sodium chloride 0.9%[facility]05-16-2025 Note PHYSICAL THERAPY [facility] Initial Evaluation Name/MRN: Fozia Breen ([id number]) Evaluation Date: 09/21/2024 Date of : 1960 [...] Responsibilities: Independent Receives Help From: None Active Assignment Desk Editor: Yes Prior Level of Function Prior Level of ADL Function: Independent Prior Level of Mobility: Independent; Device: None Prior Level of Transfers: Independent Objective Transfers/Mobility Sit to stand: Contact Guard Stand to sit: Contact Guard From recliner and toilet with UE support, cues for hand placement Device(s) used: [employer] Ambulation Assistive device(s) used: [employer] Assist level: Contact Guard Distance (ft): 15, [...] with P&C exercises. Start: (more content not included)...[facility]05-16-2025 Note* Addendum Note - ALICE Ac CRNA - 09/21/2024 8:22 AM EDT Addendum created 09/21/24821 by ALICE Ac CRNA Attestation recorded in Intraprocedure, Intraprocedure Attestations filed [facility] Work Phone: 1(216) 247-499505-16-2025 NoteAddendum created 09/21/24821 by ALICE Ac CRNA Attestation recorded in Intraprocedure, Intraprocedure Attestations [facility] Miscellaneous Notes* Addendum Note - ALICE Ac CRNA - 09/21/2024 8:22 AM EDT Addendum created 09/21/24821 by ALICE Ac CRNA Attestation recorded in Intraprocedure, Intraprocedure Attestations filed * Anesthesia Discharge Note - ALICE Love CRNA - 09/20/2024 4:29 PM EDT Patient: Fozia Breen Procedure Summary Date: 09/20/24 Room / Location: [facility] Operating Room Anesthesia Start: 1326 Anesthesia Stop: [...] criteria has been met. documented in this [facility]05-16-2025 Note* Care Coordination - Ning Magaña RN [...] Discharge Planning/Barrier: 09/21/24 0750 Rapid Rounds Attendance Closing Manager Planned Discharge Disposition Other (TBD) Today we still await Administering IV medications;Clinical stability;County Judge recommendations (comment);Symptomatic control Additional Comments: WASHER REPAIRMAN pain pump, chest tubes, PT/OTpending Discharge Plan: TBD. Case management will continue to follow for discharge planning. Length of Stay (Days): 1 GMLOS: No GMLOS Documented T [facility] HospitalShahbg17-91-4618 Note* Care Coordination - Ning Magaña RN [...] Discharge Planning/Barrier: 09/21/24 0750 Rapid Rounds Attendance Closing Manager Planned Discharge Disposition Other (TBD) Today we still await Administering IV medications;Clinical stability;County Judge recommendations (comment);Symptomatic control Additional Comments: WASHER REPAIRMAN pain pump, chest tubes, PT/OTpending Discharge Plan: TBD. Case management will continue to follow for discharge planning. Length of Stay (Days): 1 GMLOS: No GMLOS Documented T [facility] [id number] NoteCare Management Progress Note Consults to IP CONSULT TO ANESTHESIOLOGY - ACUTE PAIN SERVICE Initial Assessment: Chart reviewed. Patient has insurance and PCP listed on EHR. CM notified assigned RN no emergency contacts on chart. Patient documented as AO4. Assigned RN to notify CM/SW if NOK search needed. CM will follow for discharge planning. Discharge Planning/Barrier: 09/21/24 0750 Rapid Rounds Attendance Closing Manager Planned Discharge Disposition Other (TBD) Today we still await Administering IV medications;Clinical stability;County Judge recommendations (comment);Symptomatic control Additional Comments: WASHER REPAIRMAN pain pump, chest tubes, PT/OTpending Discharge Plan: TBD. Case management will continue to follow for discharge planning. Length of Stay (Days): 1 GMLOS: No GMLOS [facility]ed[facility] Nurse Note* Perioperative Nursing Note - Criss Ladd RN - 09/20/2024 5:48 PM EDT Patient family/visitor updated by RN at this time. [facility] HospitalSnkndl97-16-1643 Note* Anesthesia Discharge Note - ALICE Love CRNA - 09/20/2024 4:29 PM EDT Patient: Fozia Breen Procedure Summary Date: 09/20/24 Room / Location: [facility] OR [address] [place] [address] Operating Room Anesthesia Start: 1325 Anesthesia Stop: [...] once all PACU criteria has been met. [facility] [id number] NotePatient: Fozia Breen Procedure Summary Date: 09/20/24 Room / Location: [facility] OR [address] [place] [address] Operating Room Anesthesia Start: 1325 Anesthesia Stop: [...] discharged once all PACU criteria has been met.[facility]05-15-2025 Anesthesiology Postoperative evaluation and management note * Anesthesia Postprocedure Evaluation - ALICE Love CRNA - 09/20/2024 4:23 PM EDT Patient: Fozia Breen Procedure Summary Date: 09/20/24 Room / Location: [facility] Operating Room Anesthesia Start: 1326 Anesthesia Stop: [...] opportunity for questions and acknowledgement of understanding. [employer] Phone: [phone]) 305-229705-15-2025 NotePatient: Fozia Breen Procedure Summary Date: 09/20/24 Room / Location: [facility] OR Operating Room Anesthesia Start: 1326 [...] Allowed opportunity for questions and acknowledgement of understanding.[facility]05-15-2025 Surgical operation note* Anesthesia Postprocedure Evaluation - Mariia Talavera APRN - ABEL - 09/20/2024 4:23 PM EDT Patient: Fozia Breen Procedure Summary Date: 09/20/24 Room / Location: [facility] Operating Room Anesthesia Start: 1326 Anesthesia Stop: [...] during procedure: Procedural Anesthesiologist: Jorge Ortiz DO Resident/MECHANICAL DESIGN DRAFTER: ALICE Love CRNA Performed: MECHANICAL DESIGN DRAFTER Patient Condition Indications for airway management: anesthesia [...] Staffing Performed: ABEL Anesthesiologist: Jorge Ortiz DO Resident/MECHANICAL DESIGN DRAFTER: ALICE Hopper CRNA Preanesthetic Checklist Completed: patient identified, IV checked, site marked, risks and benefits discussed, surgical consent, monitors and equipment checked, pre-op evaluation and timeout performed Region: [place] Primary: Serratus Anterior Peripheral Block Patient position: supine Prep: ChloraPrep Patient monitoring: heart rate, alarm security or surveillance monitor, continuous pulse ox and continuous capnometry O2: [...] during injection and Normal resistance with injectionMedications mpzFCMGCbllgh-glyjlbuknyb-bvcgfsqliqy (TAP) syringe - Injection 20 mL - [...] request and post-op pain management Staffing Performed: MECHANICAL DESIGN DRAFTER Anesthesiologist: Jorge Ortiz DO Resident/MECHANICAL DESIGN DRAFTER: ALICE Hopper CRNA Preanesthetic Checklist Completed: patient identified, IV checked, site marked, risks and benefits discussed, surgical consent, monitors and equipment checked, pre-op evaluation and timeout performed Region: [place] Primary: Erector Spinae Peripheral Block Patient position: sitting Prep: ChloraPrep Patient monitoring: heart rate, alarm security or surveillance monitor and continuous pulse ox O2: Room air [...] - IntraVENous 2 mg - 09/20/2024 12:55:00 UPreySTGDAfrotp-qmzhyxpkjwn-vmbpdiaereu (TAP) syringe - Injection 20 mL - [...] procedure well with no complications. Staffing Performed: MECHANICAL DESIGN DRAFTER Anesthesiologist: Jorge Ortiz DO Resident/MECHANICAL DESIGN DRAFTER: ALICE Hopper CRNA * Anesthesia Preprocedure Evaluation - Jorge Ortiz DO - 09/19/2024 11:38 AM EDT Patient: Fozia Breen Procedure Information Date/Time: 09/20/24 1200 Procedures: THORACOSCOPY WITH WEDGE RESECTION LEFT LOWER LOBE (Left: Chest) POSSIBLE LOBECTOMY, LUNG, OPEN (Left: Chest) Location: [facility] OR Operating Room Surgeons: Lee Ann [...] Brother Heart attack Brother documented in this [facility]05-15-2025 Procedure anesthesia Narrative* Procedure Summary Procedure Name [...] (Exparel) 1.3 % inj ection 10 mL xsmFIOHYrgpas-zyeaoqnufso-tbnmaunzflc (T AP) syringe 20 mL sdzTZEANubatj-hkexinupnzx-mwlpsxmqovj (T AP) syringe 20 mL midazolam (Versed) [...] by: Hardik Perez MD.; Tube Number: 1 ([id number]); Orientation: Left; Location: Fourth intercostal space; Size: 28 Fr; Drainage System: Lutcher/nonsuction water seal drainage, Suction; Sutures Placed: 1 09/20/24 1504 by Pepe Cruz RN Chest Tube Placement Date: 09/06 09/30; Placement Time: 1504; Inserted by: Hardik Perez MD.; Tube Number: 2 ([id number]); Orientation: Left; Location: Fourth intercostal space; Size: 24 Fr; Drainage System: Lutcher/nonsuction water seal drainage, Suction; Sutures Placed: 1 [...] Todd Tran RN documented in this encounter [facility] [id number] Anesthesiology procedure note* Anesthesia Procedure Notes - ALICE Love CRNA - 09/20/2024 2:23 PM EDTAssociated Order(s): Airway Airway Date/Time: 09/20/2024 1:40 PM Reason: scheduled Airway not difficult General Information and Staff Patient location during procedure: Procedural Anesthesiologist: Jorge Ortiz DO Resident/MECHANICAL DESIGN DRAFTER: ALICE Love CRNA Performed: ABEL Patient Condition [...] Placement verified by bronch with Dr. Ortiz [facility] HospitalNrszns68-00-0749 NoteAirway Date/Time: 09/20/2024 1:40 PM Reason: scheduled Airway not difficult General Information and Staff Patient location during procedure: Procedural Anesthesiologist: Jorge Ortiz DO Resident/MECHANICAL DESIGN DRAFTER: ALICE Love CRNA Performed: ABEL Patient Condition [...] unchanged. Placement verified by bronch [facility] Anesthesiology procedure note* Anesthesia Procedure Notes - ALICE Love CRNA - 09/20/2024 2:23 PM EDTAssociated Order(s): Peripheral IV Peripheral IV Date/Time: 09/20/2024 1:50 PM Inserted by: ALICE Love CRNA Placement Needle size: 18 G Laterality: right Location: hand Local anesthetic: none Site prep: chlorhexidine Technique: anatomical landmarks Attempts: 1 [facility] [id number] NotePeripheral IV Date/Time: 09/20/2024 1:50 PM Inserted by: ALICE Love CRNA Placement Needle size: 18 G Laterality: right Location: hand Local anesthetic: none Site prep: chlorhexidine Technique: anatomical landmarks Attempts: [address] [place], [place] 9955605-15-2025 Anesthesiology procedure note* Anesthesia Procedure Notes - ALICE Hopper CRNA - 09/20/2024 1:58 PM EDTAssociated Order(s): Peripheral Block Peripheral Block Time Out: 09/20/2024 1:45 PM Patient location during procedure: Procedural Start time: 09/20/2024 1:45 PM End time: 09/20/2024 1:47 PM Reason for block: at surgeon's request and post-op pain management Staffing Performed: ABEL Anesthesiologist: Jorge Ortiz DO Resident/MECHANICAL DESIGN DRAFTER: ALICE Hopper CRNA Preanesthetic Checklist Completed: patient identified, IV checked, site marked, risks and benefits discussed, surgical consent, monitors and equipment checked, pre-op evaluation and timeout performed Region: [place] Primary: Serratus Anterior Peripheral Block Patient position: supine Prep: ChloraPrep Patient monitoring: heart rate, alarm security or surveillance monitor, continuous pulse ox and continuous capnometry O2: [...] during injection and Normal resistance with injectionMedications yayFCQSUsydzf-tcffsxvvbzr-flzpwozwkim (TAP) syringe - Injection 20 mL - 09/20/2024 1:45:00 PM bupivacaine liposome (Exparel) 1.3 % injection - Injection 10 mL - 09/20/2024 1:45:00 PM [employer] Phone: 1(328) 313-185405-15-2025 NotePeripheral Block Time Out: 09/20/2024 1:45 PM Patient location during procedure: Procedural Start time: 09/20/2024 1:45 PM End time: 09/20/2024 1:47 PM Reason for block: at surgeon's request and post-op pain management Staffing Performed: MECHANICAL DESIGN DRAFTER Anesthesiologist: Jorge Ortiz DO Resident/MECHANICAL DESIGN DRAFTER: ALICE Hopper CRNA Preanesthetic Checklist Completed: patient identified, IV checked, site marked, risks and benefits discussed, surgical consent, monitors and equipment checked, pre-op evaluation and timeout performed Region: [place] Primary: Serratus Anterior Peripheral Block Patient position: supine Prep: ChloraPrep Patient monitoring: heart rate, alarm security or surveillance monitor, continuous pulse ox and continuous capnometry O2: [...] during injection and Normal resistance with injectionMedications mrgQEPRBvaxid-hbirvzgieow-totiyxxuzrl (TAP) syringe - Injection 20 mL - 09/20/2024 1:45:00 PM bupivacaine liposome (Exparel) 1.3 % injection - Injection 10 mL - 09/20/2024 1:45:00 [facility]05-15-2025 Anesthesiology procedure note* Anesthesia Procedure Notes - Jani Mendoza APRN - ABEL - 09/20/2024 1:54 PM EDTAssociated Order(s): Peripheral Block Peripheral Block Time Out: 09/20/2024 12:55 PM Patient location during procedure: pre-op Start time: 09/20/2024 12:55 PM End time: 09/20/2024 1:00 PM Reason for block: at surgeon's request and post-op pain management Staffing Performed: ABEL Anesthesiologist: Jorge Ortiz DO Resident/MECHANICAL DESIGN DRAFTER: Jani Mendoza APRN - ABEL Preanesthetic Checklist Completed: patient identified, IV checked, site marked, risks and benefits discussed, surgical consent, monitors and equipment checked, pre-op evaluation and timeout performed Region: [place] Primary: Erector Spinae Peripheral Block Patient position: sitting Prep: ChloraPrep Patient monitoring: heart rate, alarm security or surveillance monitor and continuous pulse ox O2: Room air [...] - IntraVENous 2 mg - 09/20/2024 12:55:00 HSbexYHDNCywbhw-segxjjqywpz-dgwfjklffeu (TAP) syringe - Injection 20 mL - 09/20/2024 12:55:00 PM bupivacaine liposome (Exparel) 1.3 % injection - Injection 10 mL - 09/20/2024 12:55:[address] [facility] [id number] NotePeripheral Block Time Out: 09/20/2024 12:55 PM Patient location during procedure: pre-op Start time: 09/20/2024 12:55 PM End time: 09/20/2024 1:00 PM Reason for block: at surgeon's request and post-op pain management Staffing Performed: ABEL Anesthesiologist: Jorge Ortiz DO Resident/MECHANICAL DESIGN DRAFTER: ALICE Hopper CRNA Preanesthetic Checklist Completed: patient identified, IV checked, site marked, risks and benefits discussed, surgical consent, monitors and equipment checked, pre-op evaluation and timeout performed Region: [place] Primary: Erector Spinae Peripheral Block Patient position: sitting Prep: ChloraPrep Patient monitoring: heart rate, alarm security or surveillance monitor and continuous pulse ox O2: Room air [...] - IntraVENous 2 mg - 09/20/2024 12:55:00 KIfzqEIOPHxhvxd-ivpueacxlit-qndfdwlfjcy (TAP) syringe - Injection 20 mL - 09/20/2024 12:55:00 PM bupivacaine liposome (Exparel) 1.3 % injection - Injection 10 mL - 09/20/2024 12:55:00 [facility]05-15-2025 Anesthesiology procedure note* Anesthesia Procedure Notes - [...] procedure well with no complications. Staffing Performed: MECHANICAL DESIGN DRAFTER Anesthesiologist: Jorge Ortiz DO Resident/MECHANICAL DESIGN DRAFTER: ALICE Hopper CRNA [facility]05-15-2025 NoteArterial Line: Date/Time: 09/20/2024 1:42 PM [...] procedure well with no complications. Staffing Performed: MECHANICAL DESIGN DRAFTER Anesthesiologist: Jorge Ortiz DO Resident/MECHANICAL DESIGN DRAFTER: Jani Mendoza APRN - [facility] [id number] Procedure note* Op Note - Lee Ann Perez MD - 09/20/2024 1:29 PM EDT Images from the original note were not included. [facility] Cardiothoracic Surgery Operative Report [...] 12, 5) Surgeon: Lee Ann Perez MD Recenterer(s): NO Pacheco MD Anesthesia: General Estimated blood [...] extubated to recovery room in stable condition. [facility] [id number] Procedure note* Brief Op Note - Lee Ann Perez MD - 09/20/2024 1:29 PM EDT Date: 09/20/2024 Location: [facility] OR Name: Fozia Breen, : 1960, Diagnosis Pre-op Diagnosis * Solitary pulmonary nodule [R91.1] Post-op Diagnosis * Solitary pulmonary nodule [R91.1] Procedures THORACOSCOPY WITH WEDGE RESECTION LEFT LOWER LOBE [address]4792 - CT THORACOSCOPY W/DX WEDGE RESEXN ANATO LUNG RESEXN LOBECTOMY, LUNG, OPEN 69802 - CT RMVL LUNG OTHER THAN PNEUMONECTOMY 1 LOBE [...] MD 09/20/24 1527 Description: level 10 Staff: Bicycle I Assembler: Nina Arredondo, TRESSA; Jolly Arteaga RN Relief Bicycle I Assembler: Pepe Cruz RN Scrub Person: Yamile Medina [...] Moises Pacheco MD PGY5, General Surgery Pager #[phone] [facility] [id number] Evaluation note* Pre-Procedure Note - Jean Mcclendon RN - 09/20/2024 1:07 PM EDT Patient stable at this time. Patient denies ringing in ears, numbness or tingling. Family at bedside. [facility] [id number] Attending History and physical note* Lee Ann Perez MD - 09/20/2024 11:59 AM EDT H&P reviewed. The patient was examined and there are no changes to the H&P. Source Note - Lee Ann Perez MD - 08/28/2024 11:00 AM EDT Images from the original note were not included. [facility] CARDIOVASCULAR & THORACIC SURGERY [address] [facility] [address] Dept: [phone] Dept Loc: [phone] Visit type: New Reason for Visit: PET [...] This note may have been dictated using [employer] Practice Edition 2.6 and/or [employer] Voice Recognition Feature. The document was proofread, however unrecognized voice recognition director of federal sales errors may be present. [facility] Work Phone: 1(109) 563-925105-15-2025 NoteH&P reviewed. The patient was examined and there are no changes to the H&P.[facility]05-15-2025 Attending History and physical note* Lee Ann Perez MD - 09/20/2024 11:59 AM EDT H&P reviewed. The patient was examined and there are no changes to the H&P. Source Note - Lee Ann Perez MD - 08/28/2024 11:00 AM EDT Images from the original note were not included. [facility] CARDIOVASCULAR & THORACIC SURGERY [address] [facility] [address] [facility] [address] Dept: [phone] Dept Loc: [phone] Visit type: New Reason for Visit: PET [...] This note may have been dictated using Bambisa [employer] Practice Edition 2.6 and/or [employer] Voice Recognition Feature. The document was proofread, however unrecognized voice recognition director of federal sales errors may be present. [facility] CenterFunBrush Ltd. [id number] NoteH&P reviewed. The patient was examined and there are no changes to the H&P.[facility]05-15-2025 History and physical note* Lee Ann Perez MD - 09/20/2024 11:59 AM EDT H&P reviewed. The patient was examined and there are no changes to the H&P. Source Note - Lee Ann Perez MD - 08/28/2024 11:00 AM EDT Images from the original note were not included. [facility] CARDIOVASCULAR & THORACIC SURGERY [address] [facility] [address] Dept: [phone] Dept Loc: [phone] Visit type: New Reason for Visit: PET [...] This note may have been dictated using [employer]icon [employer] Practice Edition 2.6 and/or [employer] Voice Recognition Feature. The document was proofread, however unrecognized voice recognition director of federal sales errors may be present. * Lee Ann Perez MD - 09/20/2024 11:59 AM EDT H&P reviewed. The patient was examined and there are no changes to the H&P. Source Note - Lee Ann Perez MD - 08/28/2024 11:00 AM EDT Images from the original note were not included. [facility] CARDIOVASCULAR & THORACIC SURGERY [address] [facility] [address] Dept: [phone] Dept Loc: [phone] Visit type: New Reason for Visit: PET [...] This note may have been dictated using Bambisa [employer] Practice Edition 2.6 and/or [employer] Voice Recognition Feature. The document was proofread, however unrecognized voice recognition director of federal sales errors may be present. documented in this encounterSUniversity Hospitals Parma Medical [id number] Nurse Note* Perioperative Nursing Note - Ashlyn Riggs RN - 09/20/2024 10:28 AM EDT Pt declined Xanax at this time. [facility] [id number] Anesthesiology Preoperative evaluation and management note* Anesthesia Preprocedure Evaluation - Jorge Ortiz DO - 09/19/2024 11:38 AM EDT Patient: Fozia Breen Procedure Information Date/Time: 09/20/24 1200 Procedures: THORACOSCOPY WITH WEDGE RESECTION LEFT LOWER LOBE (Left: Chest) POSSIBLE LOBECTOMY, LUNG, OPEN (Left: Chest) Location: [facility] OR Operating Room Surgeons: Lee Ann [...] disease Brother Hypertension Brother Heart attack Brother [employer] Phone: 1(624) 791-754705-14-2025 NotePatient: Fozia Jamshid Procedure Information Date/Time: 09/20/24 1200 Procedures: THORACOSCOPY WITH WEDGE RESECTION LEFT LOWER LOBE (Left: Chest) POSSIBLE LOBECTOMY, LUNG, OPEN (Left: Chest) Location: [facility] OR Operating Room Surgeons: Lee Ann [...] Heart disease Brother Hypertension Brother Heart attack [facility]04-27-2025 Telephone encounter Note* Telephone Encounter - ALICE Yancey CNP - 09/02/2024 1:06 PM EDT Surg proc orders placed. ALICE Grimm CNP 09/02/24 [employer] Phone: [phone] 666-561804-27-2025 Miscellaneous Notes* Telephone Encounter - ALICE Yancey [...] mouth rinse [] Other: documented in this [facility]04-25-2025 Procedure [facility] Pulmonary Services/Neurology [address] [place] [address] MR#: [id number] Acct: [id number] Name: FOZIA BREEN Rep #:[id number] : 1960 63 From: Shivam Pryor DO Referring Dr: Angeline Lew NP PLUMBER MAINTENANCE-C Status: REG CLI Location: PSN Date: Sex: F C PSN 6 Minute Walk Test 6 Minute Walk Test 6 Minute Walk Test: 6 Minute Walk Test PSN:6-Minute Walk Test Start: 08/30/24 11:32 Freq: Status: Active Protocol: RESP.6MINW Document 08/30/24 11:32 HODAON (Rec: 08/30/24 11:34 SFCLEMENCIAON [id number]) 6 Minute Walk Test Date Performed 08/30/24 Time Performed 11:20 Height 5 ft 1 in Weight: 178 lb Weight in Pounds 178.[address]: Angeline Lew PLUMBER MAINTENANCE Assistive device None used: Pre-test Oxygen Delivery [...] ~ Date Dictated: 08/31/240 Date Transcribed: 08/31/241219 Ingot Passer: Dr. Shivam Pryor, Signed [facility]04-24-2025 NotePrep for Procedure Order Request: [...] Nasal ointment and mouth rinse [] Other: [facility]04-24-2025 Telephone encounter Note* Telephone Encounter [...] Nasal ointment and mouth rinse [] Other: [facility] [id number] History of Present illness Narrative* Lee Ann Perez MD - 08/28/2024 11:00 AM EDT Images from the original note were not included. [facility] CARDIOVASCULAR & THORACIC SURGERY [address] [facility] [address] [facility] [address] Dept: [phone] Dept Loc: [phone] Visit type: New Reason for Visit: PET [...] This note may have been dictated using Bambisa Medical Practice Edition 2.6 and/or 24 Media Network Voice Recognition Feature. The document was proofread, however unrecognized voice recognition director of federal sales errors may be present. documented in this [facility]04-22-2025 [facility] CARDIOVASCULAR & THORACIC SURGERY [address] [facility] [address] [facility] [address] Dept: [phone] Dept Loc: [phone] Visit type: New Reason for Visit: PET [...] (178 lb) BMI 33 (more content not included)...[facility]04-11-2025 Evaluation note* Diagnosis Onset Date Resolution [...] Nicotine abuse chronic November 07, 2024 9:09am [facility] Work Phone: 1(740) 509-386203-24-2025 Evaluation note* Diagnosis Onset Date Resolution Status Admit Date Lung nodule acute July 30, 9:06am Allergies chronic July 30 9:06am Smoking greater than 20 pack years chronic July 30, 2024 9:06am [facility] Work Phone: 1(532) 382-237903-24-2025 Evaluation note* Diagnosis Onset Date Resolution Status Admit Date Lung nodule acute July 30, 9:06am Allergies chronic July 30 9:06am Smoking greater than 20 pack years chronic July 30, 2024 9:06am Abnormal PET of left lung acute August 17, 2024 7:38am Shortness of breath acute August 17, 2024 7:38am Smoking greater than 20 pack years chronic August 17, 2024 7:38am [facility] Work Phone: 1(191) 624-747803-24-2025 Evaluation note* Diagnosis Onset Date Resolution Status [...] post pneumonectomy acute November 07, 2024 9:09am [facility] Work Phone: 1(674) 779-928403-12-2025 Radiology Diagnostic study note [facility] Imaging Services [address] [place] [address] Lung Screening MR#: [id number] Acct: [id number] Name: FOZIA BREEN Rep #: [id number] : 1960 F 63 From: Wade Laura MD PCP: Dr. Emilie Wheatley MD Status: REG CLI Study:Low Dose CT Lung Screening Date of Exam : 07/18/24 Exam# [id number] Ordering Dr: Viktoria Rubi sa DO PROCEDURE: [...] potentially significant findings (non-lung cancer) Reading Location: [facility] CC: Dr. Emilie Wheatley MD; Dr. Chasity Rubi DO ~ Ingot Passer: Signed [facility]08-21-2022 NoteHNO ID: [id number] Author: Tamara Graff APRN.FEEDER OPERATOR AUTOMATIC Service: ? Author Type: Nurse Practitioner Type: [...] Discussed expected course of illness Tamara Graff APRN.[facility]08-21-2022 History of Present illness Narrative* Tamara Graff APRN.[facility] - 12/27/2021 9:17 AM EDT Subjective Fever [...] Wt 77.7 kg (171 lb 3.2 oz) AwX415% No past medical history on file. No [...] illness Tamara Graff APRN.CNP documented in this encounterUniversity Hospitals Ahuja [facility] Center08-21-2022 Instructions* Patient Instructions* Tamara Graff APRN.CNP - [...] to your local emergency facility: Notify the flight control tower operator that you are seeking care for [...] or concerning to you. documented in this encounterUniversity Hospitals [facility] note* Diagnosis Suspected COVID-19 virus infection- Primary documented in this encounter [facility] noteNo assessment information availableWCleveland Clinic Children's Hospital for Rehabilitation Work Phone: Evaluation note* Diagnosis Pulmonary nodule- Primary Other diseases of lung, not elsewhere classified Rheumatoid arthritis, involving unspecified site, unspecified whether rheumatoid factor present (HCC) documented in this encounter [facility] note* Diagnosis Lung nodule- Primary Other diseases of lung, not elsewhere classified Solitary pulmonary nodule documented in this encounter [facility] note* Diagnosis Lung nodule- Primary Other diseases of lung, not elsewhere classified Lung nodule Other diseases of lung, not elsewhere classified Solitary pulmonary nodule [facility]* Diagnosis Adenocarcinoma (HCC)- Primary Other malignant neoplasm of unspecified site Pulmonary nodule Other diseases of lung, not elsewhere classified documented [facility] this encounter [facility] HospitalReason for referral (narrative)No reason for referral information availableWCleveland Clinic Children's Hospital for Rehabilitation Work Phone: Reason for visit Narrative* Auth/Cert (Routine) Specialty Diagnoses / Procedures Referred By Contac t Referred To Contact Diagnoses Solitary pulmonary nodule Procedures CT THORACOSCOPY W/DX WEDGE RESEXN ANATO LUNG RESEXN CT RMVL LUNG OTHER THAN PNEUMONECTOMY 1 LOBE LOBECT THORACOSCOPY WITH WEDGE RESECTION LEFT LOWER LOBE POSSIBLE LOBECTOMY, LUNG, OPEN PerezLee Ann perdomo MD [address] [place] [address] [place] [address] Phone: tel: fax: Referral ID Status Reason Start Date Expiration Date Visits Re quested Visits Authorized [id number] 08/29/2024 1 1 [facility] Concerns Infection Onset Date Last Indicated [...] FoundDocuments on File Type Date Recorded Patient Wallpaperer Helper Expl anation Power of Central Office Repairer Supervisor 09/20/2024 10:09 AM Date Activated Date Inactivated Comments 09/20/2024 10:06 AM Date Activated Date Inactivated Comments 09/20/2024 10:06 AM 09/25/2024 12:38 PM Documents on File Type Date Recorded Patient Wallpaperer Helper Expl anation Power of Central Office Repairer Supervisor 09/20/2024 10:09 AM Date Activated Date Inactivated [...] or prosecute any alcohol or drug abuse patient.[facility] Reason for Visit (unrecogniz ed section and content) Reason Comments Fever Nausea, FUCHS, body ach es x 7 hours Reason Comments New Patient Reason Onset Date Comments Surgery Scheduling 08/30/2024 Reason Onset Date Comments Procedure 10/11/2024 Reason Comments Post-op Reason Onset Date Comments Other 03/14/2025 Central scheduli INFORMATION SOURCE (unrecogn ized section and content) DATE CREATED AUTHOR 12/31/2021 [facility] DATE CREATED AUTHOR AUTHOR'S ORGANIZ ATION 03/15/2025 [facility] DATE CREATED AUTHOR AUTHOR'S ORGANIZ ATION 03/19/2025 [facility] Goals (unrecognized section and content) Goals may [...] 2024 End: July 30, 2024 Angeline Lew PLUMBER MAINTENANCE, PLUMBER MAINTENANCE-C Attending Provider Active Start: July 30, 2024 End: July 30, 2024 Team Status: Inactive Member Role Status Dates Dr. Emilie Wheatley MD Primary Care Provider Active Start: August 07, 2024 End: August 07, 2024 Angeline Lew PLUMBER MAINTENANCE, PLUMBER MAINTENANCE-C Attending Provider Active Start: August 07, 2024 End: August 07, 2024 Angeline Lew PLUMBER MAINTENANCE, PLUMBER MAINTENANCE-C Referring Provider Active Start: August 07, 2024 End: August 07, 2024 Wood Tank Erector Relationship Specialty Start Date End Date Emilie Wheatley MD [address] [place] [phone] PCP - General Family Medicine 08/23/24 Wood Tank Erector Relationship Specialty Start Date End Date Emilie Wheatley MD [address] [place] [phone] PCP - General Family Medicine 08/23/24 Wood Tank Erector Relationship Specialty Start Date End Date Emilie Wheatley MD [address] [place] [phone] PCP - General Family Medicine 08/23/24 Team Status: Inactive Member Role Status Dates Dr. Emilie Wheatley MD Primary Care Provider Active Start: August 17, 2024 End: August 17, 2024 Dr. Emilie Wheatley MD Referring Provider Active Start: August 17, 2024 End: August 17, 2024 Angeline Lew PLUMBER MAINTENANCE, PLUMBER MAINTENANCE-C Attending Provider Active Start: August 17, 2024 End: August 17, 2024 Team Status: Inactive Member Role Status Dates Dr. Emilie Wheatley MD Primary Care Provider Active Start: August 30, 2024 End: August 30, 2024 Angeline Lew PLUMBER MAINTENANCE, PLUMBER MAINTENANCE-C Attending Provider Active Start: August 30, 2024 End: August 30, 2024 Angeline Lew PLUMBER MAINTENANCE, PLUMBER MAINTENANCE-C Referring Provider Active Start: August 30, 2024 End: August 30, 2024 Team Status: Active Member Role Status Dates Dr. Emilie Wheatley MD Primary Care Provider Active Start: August 31, 2024 Angeline Lew PLUMBER MAINTENANCE, PLUMBER MAINTENANCE-C Attending Provider Active Start: August 31, 2024 Angeline Lew PLUMBER MAINTENANCE, PLUMBER MAINTENANCE-C Referring Provider Active Start: August 31, 2024 Team Status: Active Member Role Status Dates Dr. Emilie Wheatley MD Primary Care Provider Active Start: August 31, 2024 Angeline Lew PLUMBER MAINTENANCE, PLUMBER MAINTENANCE-C Referring Provider Active Start: August 31, 2024 Angeline Lew PLUMBER MAINTENANCE, PLUMBER MAINTENANCE-C Other Provider Active Start: August 31, 2024 Dr. Shivam Pryor DO Attending Provider Active S tart: August 31, 2024 Wood Tank Erector Relationship Specialty Start Date End Date Emilie Wheatley MD [address] [place] [phone] PCP - General Family Medicine 08/23/24 Wood Tank Erector Relationship Specialty Start Date End Date Emilie Wheatley MD [address] [place] [phone] PCP - General Family Medicine 08/23/24 Wood Tank Erector Relationship Specialty Start Date End Date Emilie Wheatley MD [address] [place] [phone] PCP - General Family Medicine 08/23/24 Team [...] 2024 End: July 30, 2024 Angeline Lew PLUMBER MAINTENANCE, PLUMBER MAINTENANCE-C Attending Provider Active Start: July 30, 2024 End: July 30, 2024 Team Status: Inactive Member Role/Relationship Status Dates Dr. Emilie Wheatley MD Primary Care Provider Active Start: August 07, 2024 End: August 07, 2024 Angeline Lew PLUMBER MAINTENANCE, PLUMBER MAINTENANCE-C Attending Provider Active Start: August 07, 2024 End: August 07, 2024 Angeline Lew PLUMBER MAINTENANCE, PLUMBER MAINTENANCE-C Referring Provider Active Start: August 07, 2024 End: August 07, 2024 Team Status: Inactive Member Role/Relationship Status Dates Dr. Emilie Wheatley MD Primary Care Provider Active Start: August 17, 2024 End: August 17, 2024 Dr. Emilie Wheatley MD Referring Provider Active Start: August 17, 2024 End: August 17, 2024 Angeline Lew PLUMBER MAINTENANCE, PLUMBER MAINTENANCE-C Attending Provider Active Start: August 17, 2024 End: August 17, 2024 Team Status: Inactive Member Role/Relationship Status Dates Dr. Emilie Wheatley MD Primary Care Provider Active Start: August 30, 2024 End: August 30, 2024 Angeline Lew PLUMBER MAINTENANCE, PLUMBER MAINTENANCE-C Attending Provider Active Start: August 30, 2024 End: August 30, 2024 Angeline Lew PLUMBER MAINTENANCE, PLUMBER MAINTENANCE-C Referring Provider Active Start: August 30, 2024 End: August 30, 2024 Team Status: Inactive Member Role/Relationship Status Dates Dr. Emilie Wheatley MD Primary Care Provider Active Start: August 31, 2024 End: August 31, 2024 Angeline Lew PLUMBER MAINTENANCE, PLUMBER MAINTENANCE-C Attending Provider Active Start: August 31, 2024 End: August 31, 2024 Angeline Lew PLUMBER MAINTENANCE, PLUMBER MAINTENANCE-C Referring Provider Active Start: August 31, 2024 End: August 31, 2024 Team Status: Active Member Role/Relationship Status Dates Dr. Emilie Wheatley MD Primary Care Provider Active Start: August 31, 2024 Agneline Lew PLUMBER MAINTENANCE, PLUMBER MAINTENANCE-C Referring Provider Active Start: August 31, 2024 Angeline Lew PLUMBER MAINTENANCE, PLUMBER MAINTENANCE-C Other Provider Active Start: August 31, 2024 Dr. Shivam Pryor DO Attending Provider Active S tart: August 31, 2024 Team Status: Inactive Member Role/Relationship Status Dates Dr. Emilie Wheatley MD Primary Care Provider Active Start: November 07, 2024 End: November 07, 2024 Dr. Emilie Wheatley MD Referring Provider Active Start: November 07, 2024 End: November 07, 2024 Angeline Lew PLUMBER MAINTENANCE, PLUMBER MAINTENANCE-C Attending Provider Active Start: November 07, 2024 End: November 07, 2024 Team Status: Inactive Member Role/Relationship Status Dates Dr. Emilie Wheatley MD Primary Care Provider Active Start: August 07, 2024 End: August 07, 2024 Angeline Lew PLUMBER MAINTENANCE, PLUMBER MAINTENANCE-C Attending Provider Active Start: August 07, 2024 End: August 07, 2024 Angeline Lew PLUMBER MAINTENANCE, PLUMBER MAINTENANCE-C Referring Provider Active Start: August 07, 2024 End: August 07, 2024 Team Status: Inactive Member Role/Relationship Status Dates Dr. Emilie Wheatley MD Primary Care Provider Active Start: August 17, 2024 End: August 17, 2024 Dr. Emilie Wheatley MD Referring Provider Active Start: August 17, 2024 End: August 17, 2024 Angeline Lew PLUMBER MAINTENANCE, PLUMBER MAINTENANCE-C Attending Provider Active Start: August 17, 2024 End: August 17, 2024 Team Status: Inactive Member Role/Relationship Status Dates Dr. Emilie Wheatley MD Primary Care Provider Active Start: August 30, 2024 End: August 30, 2024 Angeline Lew PLUMBER MAINTENANCE, PLUMBER MAINTENANCE-C Attending Provider Active Start: August 30, 2024 End: August 30, 2024 Angeline Lew PLUMBER MAINTENANCE, PLUMBER MAINTENANCE-C Referring Provider Active Start: August 30, 2024 End: August 30, 2024 Team Status: Inactive Member Role/Relationship Status Dates Dr. Emilie Wheatley MD Primary Care Provider Active Start: August 31, 2024 End: August 31, 2024 Angeline Lew PLUMBER MAINTENANCE, PLUMBER MAINTENANCE-C Attending Provider Active Start: August 31, 2024 End: August 31, 2024 Angeline Lew PLUMBER MAINTENANCE, PLUMBER MAINTENANCE-C Referring Provider Active Start: August 31, 2024 End: August 31, 2024 Team Status: Active Member Role/Relationship Status Dates Dr. Emilie Wheatley MD Primary Care Provider Active Start: August 31, 2024 Angeline Lew PLUMBER MAINTENANCE, PLUMBER MAINTENANCE-C Referring Provider Active Start: August 31, 2024 Angeline Lew PLUMBER MAINTENANCE, PLUMBER MAINTENANCE-C Other Provider Active Start: August 31, 2024 Dr. Shivam Pryor DO Attending Provider Active S tart: August 31, 2024 Team Status: Inactive Member Role/Relationship Status Dates Dr. Emilie Wheatley MD Primary Care Provider Active Start: November 07, 2024 End: November 07, 2024 Dr. Emilie Wheatley MD Referring Provider Active Start: November 07, 2024 End: November 07, 2024 Angeline Lew PLUMBER MAINTENANCE, PLUMBER MAINTENANCE-C Attending Provider Active Start: November 07, 2024 [...] 2024 End: November 07, 2024 Angeline Lew PLUMBER MAINTENANCE, PLUMBER MAINTENANCEKacieC Attending physician Active Start: November 07, 2024 [...] Ephraim Mendoza RN) 0603 (Given - Provider: Chrau Pryor RN) 0514 (Given - Provider: Tesha [...] Nasal, 2 times daily, First dose on [facility] 09/20/24 at 2100, For 5 days, Phase [...] Daily, First dose (after last modification) on [place] 09/23/24 at 0915, Phase II/On Unit 0925 (Given - Provider: Odalys Parker RN) 0832 (Given - Provider: Patrick Tim RN) 0828 (Not Given - Provider: Patrick Tim RN - Reason: Patient/family refused) sodium chloride 0.9% (NS) flush 5-40 mL 5-40 mL, IntraVENous, Every 12 hours scheduled (2 times per day), First dose on [facility] 09/20/24 at 2100, Phase II/On Unit, or [...] Starting on Tue09/21/24 at 1646 HYDROcodone-acetaminophe n ([place]) 5-325 MG per tablet 1 tablet(Linked Group [...] - Provider: Patrick Tim RN) HYDROcodone-acetaminophe n ([place]) 5-325 MG per tablet 2 tablet(Linked Group [...] sedation for opioid reversal - MUST notify implementation consultant provider immediately after first dose, may give [...] mL/lumen Linked Groups Order Group 1: HYDROcodone-acetaminophen ([place]) 5-325 MG per tablet 1 tabletJump to med 1 tablet, Oral, Every 4 hours PRN, moderate pain (4-6), Starting on Tue09/21/24 at 1135, Maximum dose of acetaminophen is 4000 mg from all sources in 24 hours. Or HYDROcodone-acetaminophen ([place]) 5-325 MG per tablet 2 tabletJump to [...] BE BASED ON THE PRIMARY CLINICAL RECORDS. [facility]. provides no warranty or guarantee of the accuracy or completeness of information in this document.
--- NOTE | 2025-04-13 10:53 | US_ITS ---
PROCEDURE: THYROID 04/13/2025 REASON FOR EXAM: NODULE SEEN ON CT TECHNIQUE: Procedure Code: USTHY Modality: US Procedure: THYROID COMPARISON: July 18, 2024, August 07, 2024 FINDINGS: Right thyroid lobe size: 5.1 x 1.7 x 1.6 cm Left thyroid lobe size: 4.2 x 1.0 x 1.0 cm Isthmus: 0.2 cm Background parenchymal echotexture is homogeneous. Note: A benign cyst is shown at the right lower pole measuring 4 mm, and another at the left midpole. Nodules: 1. Lobe: Right, Location: Midpole, Size: 1.8 cm, Stability: N/A Composition: Solid or almost completely solid (+2) Echogenicity: Hyper to Isoechoic (+1) Margin: Smooth (+0) Shape: Wider than tall (+0) Echogenic Foci: None (+0) TI-RADS: 3 2. Lobe: Right, Location: Lower pole, Size: 0.5 cm, Stability: N/A Composition: Solid or almost completely solid (+2) Echogenicity: Hypoechoic (+2) Margin: Smooth (+0) Shape: Wider than tall (+0) Echogenic Foci: None (+0) TI-RADS: 4 3. Lobe: Left, Location: Upper pole, Size: 0.3 cm, Stability: N/A Composition: Solid or almost completely solid (+2) Echogenicity: Hyper to Isoechoic (+1) Margin: Smooth (+0) Shape: Wider than tall (+0) Echogenic Foci: Peripheral calcification (+2) TI-RADS: 4 US/Thyroid IMPRESSION: 1. Right thyroid nodule measures up to 1.8 cm. ACR White Paper guidelines (Te kuldip, et al. J AM Efren Radiol. 2017; 14: 587-595) suggest the following: TIRAD level 3 nodule, size 1.5-2.5 cm. Follow-up thyroid ultrasound at 1, 3 and 5 years. Note: The thyroid was not particularly hypermetabolic on prior PET scan. Reading Location: [id number]
== END | disposition home or self-care (01) ==
LOC: US 10:42
PROVIDERS: PCP Family Medicine; Referring Provider Family Medicine; Visit Provider Family Medicine
DX: E04.1 Nontoxic single thyroid nodule (principal)
CPT/HCPCS: 76536